=== PATIENT | female | born 1940 | race Hispanic/Latino ===

== ENCOUNTER 2017-02-26 19:40 | Inpatient (IN) | payer MEDICARE ==
[2017-02-26 19:54] VITALS: BMI 23.1
--- NOTE | 2017-02-26 20:12 | ED PDOC ---
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 Patient reports while walking she caught her foot on a chair causing her to fall hitting her head, back and left hip. 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 Patient currently complains of a headache, mid lower back pain and left hip pain. Patient denies any other injuries, dizziness, vision changes, neck pain, fever, chills, nausea, vomiting, abdominal pain, chest pain, shortness of breath or any other complaints. PMD: Dr. Pandey Shingle Inspector: Dr. Turk Oncologist: Dr. Lind Time/Duration: Other (yesterday) Symptom Course: Unchanged Quality: Other Context: Home Past Medical History - Provider Review Nursing Documentation Reviewed: Yes - Cardiac Hx Pacemaker: No - Neurological Hx Paralysis: No - Hematological/Oncological Hx Blood Transfusions: No - Musculoskeletal/Rheumatological Hx Musculoskeletal Disorders: Yes (NEUROPATHY/POLYMYALGIA) - Psychiatric Hx Substance Use: No - Anesthesia Hx Anesthesia Reactions: No Hx Malignant Hyperthermia: No Family/Social History - Physician Review Nursing Documentation Reviewed: Yes Family/Social History: No Known Family HX Smoking Status: Never Smoked Hx Alcohol Use: Yes (COCKTAIL DAILY) Hx Substance Use: No Allergies/Home Meds Allergies/Adverse Reactions: Allergies No Known Allergies Allergy (Verified 02/26/17 19:52) Home Medications: Home Meds Medication Instructions Recorded Confirmed Hydroxychloroquine Sulfate 200 mg PO DAILY 01/30/15 02/26/17 [Plaquenil] Folic Acid 1 mg PO DAILY 02/26/17 02/26/17 Methotrexate 2.5 mg PO QWK 02/26/17 02/26/17 Naproxen [Naprosyn] 500 mg PO BID 02/26/17 02/26/17 Prednisone [Aretha] 10 mg PO DAILY 02/26/17 02/26/17 Review of Systems - Physician Review All systems were reviewed & negative as marked: Yes - Review of Systems Constitutional: absent: Fevers, Night Sweats Eyes: absent: Vision Changes Respiratory: absent: SOB Cardiovascular: absent: Chest Pain Gastrointestinal: absent: Abdominal Pain, Nausea, Vomiting Musculoskeletal: Back Pain, Other (left hip pain). absent: Neck Pain Neurological: Headache. absent: Dizziness Physical Exam Vital Signs Reviewed: Yes Vital Signs Temp Pulse Resp BP Pulse Ox 02/26/17 19:56 98.7 F 113 H 18 156/91 H 96 02/26/17 19:51 98.7 F 113 H 17 156/91 H 96 Temperature: Afebrile Blood Pressure: Hypertensive Pulse: Tachycardic Respiratory Rate: Normal Appearance: Positive for: Well-Appearing, Non-Toxic, Comfortable Pain Distress: None Mental Status: Positive for: Alert and Oriented X 3 - Systems Exam Head: Present: Other (Small bump in left posterior part of the head) Pupils: Present: PERRL Extroacular Muscles: Present: EOMI Conjunctiva: Present: Normal Mouth: Present: Moist Mucous Membranes Neck: Present: Normal Range of Motion. No: MIDLINE TENDERNESS, Paraspinal Tenderness Respiratory/Chest: Present: Clear to Auscultation, Good Air Exchange. No: Respiratory Distress, Accessory Muscle Use Cardiovascular: Present: Regular Rate and Rhythm, Normal S1, S2. No: Murmurs Abdomen: Present: Normal Bowel Sounds. No: Tenderness, Distention, Peritoneal Signs Back: Present: Midline Tenderness (mid to lower back tenderness), Paraspinal Tenderness (mid to lower back tenderness). No: Other (step off) Upper Extremity: Present: Normal Inspection, Normal ROM, NORMAL PULSES, Neurovascularly Intact. No: Cyanosis, Edema, Tenderness, Swelling, Erythema, Temperature Abnormalties, Deformity Lower Extremity: Present: NORMAL PULSES, Tenderness (Left hip tenderness), Neurovascularly Intact. No: Edema, CALF TENDERNESS, Normal ROM (Decrease ROM in left hip ), Swelling, Erythema, Deformity, Temperature Abnormalties, Other ( Knee tenderness) Neurological: Present: GCS=15, CN II-XII Intact, Speech Normal Skin: Present: Warm, Dry, Normal Color. No: Rashes Psychiatric: Present: Alert, Oriented x 3, Normal Insight, Normal Concentration Medical Decision Making ED Course and Treatment: 02/26/17 20:05 Impression: A 77 year old female with a headache, mid to lower back pain and left hip pain after fall yesterday. Differential Diagnosis included but are not limited to: Mechanical fall rule out fracture Plan: -- Head CT -- Thoracic spine CT -- Lumbar spine CT -- Abdomen and pelvis CT -- Chest xray -- Labs -- Toradol -- Reassess and disposition Progress Notes: 02/26/17 21:08 Chest xray read and interpreted by me, which show no active disease. Report Date: 02/26/17 21:42 EXAM: CT Abdomen and Pelvis Without Intravenous Contrast Dictated and Authenticated by: Gladys Dang MD IMPRESSION: Cardiomegaly and atherosclerotic disease; ascending aortic aneurysm 5.3 cm maximal diameter, similar finding seen on the prior study; irregular fusiform dilatation of the abdominal aorta with extensive atherosclerotic disease, similar finding seen on the prior study; cholecystectomy; right nephrectomy; nonobstructing left renal stones, no ureteral stones or hydronephrosis; cystic lesion in the pancreatic head, unchanged since the prior study; mild ileus, no obstruction Report Date: 02/26/17 21:50 EXAM: CT Thoracic Spine Without Intravenous Contrast Dictated and Authenticated by: Gladys Dang MD IMPRESSION: Osteopenia degenerative change, no fracture seen; mediastinal and hilar adenopathy suspicious for malignancy, CT chest with contrast suggested for more optimal evaluation; cardiomegaly and atherosclerotic disease, 5.2 cm ascending aortic aneurysm Report Date: 02/26/17 21:53 EXAM: CT Head Without Intravenous Contrast Dictated and Authenticated by: Gladys Dang MD IMPRESSION: Atrophy and small vessel disease, age-indeterminate basal ganglia lacunar infarct; no bleed Report Date: 02/26/17 22:03 EXAM: CT Lumbar Spine Without Intravenous Contrast Dictated and Authenticated by: Gladys Dang MD IMPRESSION: Osteopenia and degenerative change, similar findings seen on the prior study, no acute fracture; extensive atherosclerotic disease in the abdominal aorta; right nephrectomy 02/26/17 22:29 Hyponatremia treated with NS IVF. WBC 12. Patient denies fever, chills or bodyaches. She denies cough or urinary symptoms. I tried to get patient to stand up and walk and she is unable to hold steady or ambulate. Patient's pain was not controlled with Toradol so I gave her Morphine 4mg IV. CT exams reviewed and discussed with patient. Discussed case with Dr. Parham and will place her on observation. - Lab Interpretations Lab Results: 02/26/17 20:15 02/26/17 20:15 Lab Results 02/26/17 20:15: Sodium 121 L, Potassium 4.3, Chloride 87 L, Carbon Dioxide 21, Anion Gap 17, BUN 10, Creatinine 0.5, Est GFR ( Amer) > 60, Est GFR (Non- Af Amer) > 60, Random Glucose 137 H, Calcium 9.6, Total Bilirubin 1.3, AST 33, ALT 29, Alkaline Phosphatase 83, Total Protein 6.9, Albumin 4.1, Globulin 2.8, Albumin/Globulin Ratio 1.5 02/26/17 20:15: PT 11.7, INR 1.08, APTT 34.7 H 02/26/17 20:15: WBC 12.0 H D, RBC 3.30 L, Hgb 11.1 L, Hct 30.9 L, MCV 93.6, MCH 33.6, MCHC 35.9, RDW 13.1, Plt Count 197, MPV 9.5, Gran % 91.0 H, Lymph % (Auto ) 3.0 L, Mcmullen % (Auto) 5.8, Eos % (Auto) 0.1 L, Baso % (Auto) 0.1, Gran # 10.92 H, Lymph # 0.4 L, Mcmullen # 0.7 H, Eos # 0.0, Baso # 0.01, Neutrophils % (Manual) 94 H, Lymphocytes % (Manual) 2 L, Monocytes % (Manual) 4 I have reviewed the lab results: Yes - RAD Interpretation Radiology Orders: 02/26/17 19:57 HEAD W/O CONTRAST [CT] Stat LUMBAR SPINE W/O CONTRAST [CT] Stat THORACIC SPINE W/O CONT [CT] Stat 02/26/17 19:59 ABD & PELVIS W/O PO OR IV CONT [CT] Stat CXR [CHEST ONE VIEW] [RAD] Stat - Medication Orders Current Medication Orders: Sodium Chloride (Sodium Chloride 0.9%) 500 mls @ 100 mls/hr IV .Q5H WE[facility] Last Admin: 02/26/17 21:58 Dose: 100 mls/hr Morphine Sulfate (Morphine) 4 mg IVP Q4H PRN PRN Reason: Pain, moderate (4-7) Discontinued Medications Ketorolac Tromethamine (Toradol) 30 mg IVP STAT STA Stop: 02/26/17 20:01 Last Admin: 02/26/17 20:22 Dose: 30 mg Morphine Sulfate (Morphine) 4 mg IVP STAT STA Stop: 02/26/17 21:25 Last Admin: 02/26/17 21:58 Dose: 4 mg - Scribe Statement The provider has reviewed the documentation as recorded by the Guilherme Myers Provider Scribe Attestation: All medical record entries made by the Guilherme were at my direction and personally dictated by me. I have reviewed the chart and agree that the record accurately reflects my personal performance of the history, physical exam, medical decision making, and the department course for this patient. I have also personally directed, reviewed, and agree with the discharge instructions and disposition. Disposition/Present on Arrival - Present on Arrival Any Indicators Present on Arrival: No History of DVT/PE: No History of Uncontrolled Diabetes: No Urinary Catheter: No History of Decub. Ulcer: No History Surgical Site Infection Following: None - Disposition Have Diagnosis and Disposition been Completed?: Yes Diagnosis: Intractable pain, Hip pain, Leg pain, Fall, Hyponatremia Disposition: HOSPITALIZED Disposition Time: 22:32 Patient Plan: Observation Condition: FAIR
[2017-02-26 20:38] LABS: ALB/GLOB RATIO 1.5 (1.1-1.8); ALKALINE PHOSPHATASE 83 U/L (38-126); ALT/SGPT 29 U/L (7-56); AST/SGOT 33 U/L (14-36); BASO # 0.01 K/mm3 (0.0-2.0); BASO % 0.1 % (0.0-3.0); BILIRUBIN,TOTAL 1.3 mg/dL (0.2-1.3); BLOOD UREA NITROGEN 10 mg/dL (7-21); CALCIUM 9.6 mg/dL (8.4-10.5); CARBON DIOXIDE 21 mmol/L (21-33); CHLORIDE 87 mmol/L (98-107); EOS % 0.1 % (1.5-5.0); GFR AFRICAN-AMERICAN > 60; GLUCOSE,RANDOM 137 mg/dL (70-110); GRAN # 10.92 (1.4-6.5); HEMATOCRIT 30.9 % (36.0-48.0); LYMPH # 0.4 (1.2-3.4); MEAN CELL VOLUME 93.6 fl (80.0-105.0); MEAN CORPUSCULAR HEMOGLOBIN 33.6 pg (25.0-35.0); MEAN CORPUSCULAR HGB CONC 35.9 g/dl (31.0-37.0); MEAN PLATELET VOLUME 9.5 fl (7.0-11.0); MONO # 0.7 (0.1-0.6); MONO % 5.8 % (1.0-6.0); PLATELET COUNT 197 10^3/uL (120.0-450.0); POTASSIUM 4.3 mmol/L (3.6-5.0); RED CELL DISTRIBUTION WIDTH 13.1 % (11.5-14.5); SODIUM 121 mmol/L (132-148); TOTAL PROTEIN 6.9 g/dL (5.8-8.3)
[2017-02-26 20:47] LABS: INR 1.08 (0.93-1.08); PARTIAL THROMBOPLASTIN TIME 34.7 Seconds (23.7-30.8)
[2017-02-26] MEDS ORDERED: Morphine 4 mg/ml ISec IVP STA (21:24)
[2017-02-26 21:25] LABS: NEUTROPHIL 94 % (50.0-70.0)
--- NOTE | 2017-02-26 21:42 | CT ---
EXAM: CT Abdomen and Pelvis Without Intravenous Contrast EXAM DATE/TIME: 02/26/2017 7:59 PM CLINICAL HISTORY: 77 years old, female; Pain; Abdominal pain; Prior surgery; Surgery type: Cholecystectomy - r heminephrectomy; Additional info: Left hip pain R/O FX TECHNIQUE: Axial computed tomography images of the abdomen and pelvis without intravenous contrast. All CT scans at this facility use one or more dose reduction techniques, viz.: automated exposure control; ma/kV adjustment per patient size (including targeted exams where dose is matched to indication; i.e. head); or iterative reconstruction technique. Coronal and sagittal reformatted images were created and reviewed. COMPARISON: CT - CHEST,ABDOMEN,PELVIS W/O CONT 12/04/2016 8:50:49 AM FINDINGS: Lower thorax: The heart is enlarged. There is a small pericardial effusion. Descending aorta is dilated, 5.3 cm in diameter. There are coronary artery calcifications and/or stents. There are vascular calcifications. There is scarring at the lung bases. There are multiple small clips at both lung bases. There is pleural thickening greatest at the left base. ABDOMEN: Liver: unremarkable Gallbladder and bile ducts: Gallbladder is surgically absent. Common duct is unremarkable. Pancreas: Body and tail of the pancreas are. There is a 1.8 cm cyst at the junction of the pancreatic body and head unchanged. Pancreatic head is unremarkable. Spleen: unremarkable Adrenals: Left adrenal is unremarkable. Right adrenal is difficult to identify. Kidneys and ureters: There are nonobstructing left renal stones.There is no pelvocaliectasis or ureterectasis. Right kidney is absent. There are multiple clips in the right renal fossa. Stomach and bowel: Stomach is almost empty. Rotation is normal. There is a duodenal diverticulum. Small bowel is mildly distended with fluid and air. There is no obstruction. Ileocecal region is unremarkable.Colon is incompletely distended which limits evaluation. Appendix: See stomach and bowel PELVIS: Bladder: Urinary bladder is unremarkable. Reproductive: Uterus is atrophic. There are no adnexal masses. ABDOMEN and PELVIS: Intraperitoneal space: There is no free air or free fluid. Bones/joints: Bony structures are osteopenic. There are degenerative changes. Degenerative changes in the spine are greatest at L3-L4 and L5-S1. There is anterolisthesis L4 on L5. There is degenerative facet disease greatest at L45 and L5-S1. There are no pelvic fractures. There are no hip fractures. Soft tissues: unremarkable Vasculature: The distal descending aorta is ectatic. Abdominal aortic is ectatic. There is extensive atherosclerotic calcification in the wall. Intraluminal calcifications suggest calcified mural thrombus and/or plaque. Proximal abdominal aorta measures approximately 4.8 cm in diameter. Midportion measures approximately 4.2 cm in diameter. There is distal tapering. There is calcification of celiac, superior mesenteric and both renal arteries proximally. Calcification in the iliacs. There are extensive calcifications in the aortic wall. There are curvilinear calcifications displaced from the wall unchanged since the prior study. Lymph nodes: There is no pathologic adenopathy. IMPRESSION: Cardiomegaly and atherosclerotic disease; ascending aortic aneurysm 5.3 cm maximal diameter, similar finding seen on the prior study; irregular fusiform dilatation of the abdominal aorta with extensive atherosclerotic disease, similar finding seen on the prior study; cholecystectomy; right nephrectomy; nonobstructing left renal stones, no ureteral stones or hydronephrosis; cystic lesion in the pancreatic head, unchanged since the prior study; mild ileus, no obstruction
--- NOTE | 2017-02-26 21:51 | CT ---
EXAM: CT Thoracic Spine Without Intravenous Contrast EXAM DATE/TIME: 02/26/2017 7:57 PM CLINICAL HISTORY: 77 years old, female; Injury or trauma; Fall; Initial encounter; Blunt trauma (contusions or hematomas); Additional info: Fall R/O FX; metastatic renal cell carcinoma TECHNIQUE: Axial computed tomography images of the thoracic spine without intravenous contrast. All CT scans at this facility use one or more dose reduction techniques, viz.: automated exposure control; ma/kV adjustment per patient size (including targeted exams where dose is matched to indication; i.e. head); or iterative reconstruction technique. Coronal and sagittal reformatted images were created and reviewed. COMPARISON: There are no prior studies for comparison. FINDINGS: Vertebrae: Thoracic vertebral bodies are normal in height and alignment. There are no thoracic fractures. There are degenerative changes in the lower cervical spine with disc space narrowing and osteophyte formation. There is mild disc space narrowing in the mid thoracic spine. There are small degenerative osteophytes. Facet joints align anatomically. Spinous processes align in the expected fashion. Discs/spinal canal/neural foramina: See above Soft tissues: Paraspinous muscles are unremarkable. Vasculature: The heart is enlarged. There is a small pericardial effusion. There is atherosclerotic disease. The ascending aorta is dilated 5.2 cm in diameter. There is tapering at the arch. Distal thoracic aorta is ectatic. Lymph nodes: There is mediastinal and right hilar adenopathy. Pleural space: There is scarring at the lung bases. There is pleural thickening greatest at the right apex. There are clips at the lung bases. Mediastinum: Posterior mediastinum is unremarkable. Kidneys and ureters: Right kidney is absent. IMPRESSION: Osteopenia degenerative change, no fracture seen; mediastinal and hilar adenopathy suspicious for malignancy, CT chest with contrast suggested for more optimal evaluation; cardiomegaly and atherosclerotic disease, 5.2 cm ascending aortic aneurysm Additional findings as described above.
--- NOTE | 2017-02-26 21:53 | CT ---
EXAM: CT Head Without Intravenous Contrast EXAM DATE/TIME: 02/26/2017 7:57 PM CLINICAL HISTORY: 77 years old, female; Injury or trauma; Fall; Initial encounter; Concussion / head injury; Additional info: Head injury R/O ich TECHNIQUE: Axial computed tomography images of the head/brain without intravenous contrast. All CT scans at this facility use one or more dose reduction techniques, viz.: automated exposure control; ma/kV adjustment per patient size (including targeted exams where dose is matched to indication; i.e. head); or iterative reconstruction technique. COMPARISON: There are no prior studies for comparison. FINDINGS: Artifacts: Motion artifact degrades image quality. Brain: There is dilatation of sulci gyri and ventricles. There is no midline shift. There is decreased attenuation in periventricular white matter. There are age-indeterminate basal ganglia lacunar infarcts. There are basal ganglia calcifications bilaterally. There are no focal masses. There are no focal hemorrhages. Hager-white differentiation is visualized. Ventricles: See above Bones: Cranial vault is intact. Soft tissues: unremarkable Sinuses: There is no acute sinusitis. Ears and mastoids: Middle ears and mastoids are unremarkable. Orbits: Orbital contents are unremarkable. IMPRESSION: Atrophy and small vessel disease, age-indeterminate basal ganglia lacunar infarct; no bleed
[2017-02-26] MEDS: Sodium Chloride 0.9% 500 ML IV SCH (21:58)
--- NOTE | 2017-02-26 22:03 | CT ---
EXAM: CT Lumbar Spine Without Intravenous Contrast EXAM DATE/TIME: 02/26/2017 7:57 PM CLINICAL HISTORY: 77 years old, female; Injury or trauma; Fall; Initial encounter; Blunt trauma (contusions or hematomas); Additional info: Metastatic renal cell carcinoma TECHNIQUE: Axial computed tomography images of the lumbar spine without intravenous contrast. All CT scans at this facility use one or more dose reduction techniques, viz.: automated exposure control; ma/kV adjustment per patient size (including targeted exams where dose is matched to indication; i.e. head); or iterative reconstruction technique. Coronal and sagittal reformatted images were created and reviewed. COMPARISON: CT - CHEST,ABDOMEN,PELVIS W/O CONT 12/04/2016 8:50:49 AM FINDINGS: Vertebrae: T12 and 5 lumbar vertebral bodies are normal in height. There are no fractures. Bony structures are osteopenic There is multilevel degenerative change. There are Schmorl's nodes T11-T12, T12-L1 and L1/L2. Facet joints align anatomically. There is degenerative facet disease greatest L34, L4-L5 and L5-S1.Spinous processes align in the expected fashion. There is posterior disc space narrowing T11-T12 T12-L1 and L1-L2. There is minimal retrolisthesis L1 on L2. There is retrolisthesis L2 on L3. There is moderate disc space narrowing L2-L3. There is marked disc space narrowing L3-L4. There is subchondral sclerosis and osteophyte formation There is anterolisthesis of L4 and L5 with posterior disc space narrowing and disc bulging. There is marked narrowing L5-S1 disc space. There is subchondral sclerosis and osteophyte formation. Discs/spinal canal/neural foramina: See above. Soft tissues: Psoas and paraspinous muscles are symmetric. Vasculature: There extensive atherosclerotic calcifications in the abdominal aorta. There is asymmetric fusiform dilatation. Kidneys and ureters: Right kidney is absent. There are nonobstructing left renal stones. IMPRESSION: Osteopenia and degenerative change, similar findings seen on the prior study, no acute fracture; extensive atherosclerotic disease in the abdominal aorta; right nephrectomy Additional findings as described above.
[2017-02-26] MEDS ORDERED: Morphine 4 mg/ml ISec IVP PRN (22:15)
[2017-02-26 22:57] LABS: URINE BILIRUBIN SMALL (NEGATIVE); URINE BLOOD MODERATE (NEGATIVE); URINE GLUCOSE (UA) NEGATIVE (NEGATIVE); URINE KETONE TRACE mg/dL (NEGATIVE); URINE LEUKOCYTE ESTERASE NEGATIVE Leu/uL (NEGATIVE); URINE PROTEIN >=300 mg/dL (<30 mg/dL)
[2017-02-26 22:58] LABS: URINE APPEARANCE CLEAR (CLEAR); URINE COLOR DARK YELLOW (YELLOW)
[2017-02-26 23:10] LABS: URINE RBC 15 - 20 /hpf (0-2)
[2017-02-26 23:11] LABS: URINE BACTERIA FEW (NEG); URINE EPITHELIAL CELLS 0 - 2 /hpf (0-5)
[2017-02-26] MEDS ORDERED: Sodium Chloride 0.9% 1,000 ML IV SCH (23:30)
[2017-02-27 08:24] LABS: HEMATOCRIT 29.5 % (36.0-48.0); MEAN CELL VOLUME 94.9 fl (80.0-105.0); MEAN CORPUSCULAR HEMOGLOBIN 33.1 pg (25.0-35.0); MEAN CORPUSCULAR HGB CONC 34.9 g/dl (31.0-37.0); MEAN PLATELET VOLUME 8.7 fl (7.0-11.0); RED CELL DISTRIBUTION WIDTH 13.2 % (11.5-14.5); WHITE BLOOD COUNT 7.9 10^3/ul (4.5-11.0)
[2017-02-27 08:39] LABS: ALB/GLOB RATIO 1.4 (1.1-1.8); ALKALINE PHOSPHATASE 67 U/L (38-126); ALT/SGPT 31 U/L (7-56); AST/SGOT 23 U/L (14-36); BILIRUBIN,TOTAL 1.4 mg/dL (0.2-1.3); BLOOD UREA NITROGEN 15 mg/dL (7-21); CALCIUM 9.2 mg/dL (8.4-10.5); CARBON DIOXIDE 24 mmol/L (21-33); CHLORIDE 92 mmol/L (98-107); GFR AFRICAN-AMERICAN > 60; GLUCOSE,RANDOM 94 mg/dL (70-110); PHOSPHOROUS 4.4 mg/dL (2.5-4.5); POTASSIUM 4.4 mmol/L (3.6-5.0); SODIUM 125 mmol/L (132-148); TOTAL PROTEIN 6.4 g/dL (5.8-8.3)
--- NOTE | 2017-02-27 08:48 | RAD ---
PROCEDURE: CHEST RADIOGRAPH, 1 VIEW HISTORY: fall r/o fx COMPARISON: None available. FINDINGS: LUNGS: Clear. PLEURA: No pneumothorax or pleural fluid seen. CARDIOVASCULAR: The cardiac silhouette is mildly enlarged. The aortic arch is dilated. OSSEOUS STRUCTURES: No significant abnormalities. VISUALIZED UPPER ABDOMEN: Normal. OTHER FINDINGS: None. IMPRESSION: No evidence of pleural effusion or pneumothorax.
[2017-02-27 08:56] LABS: MAGNESIUM 1.2 mg/dL (1.7-2.2)
[2017-02-27] MEDS ORDERED: Metoprolol Succinate 50 mg XL Tab PO SCH (14:45)
[2017-02-27] MEDS ORDERED: Morphine 4 mg/ml ISec IVP PRN (14:46)
[2017-02-27] MEDS ORDERED: Morphine 2 mg/ml ISec IVP PRN (14:52)
[2017-02-27] MEDS ORDERED: Magnesium Sulfate 2 GM in Sodium Chloride 0.9% 100 ML IV ONE (15:37)
--- NOTE | 2017-02-27 18:07 | CON ---
DATE: 02/27/2017 Hospital visit on the medical floor For Dr. Lind. CHIEF COMPLAINT: Falls and hyponatremia. HISTORY OF PRESENT ILLNESS: The patient is a 77-year-old female admitted via the emergency room for electrolyte abnormality putting the sodium of 125 with the patient having had a fall recently where she struck the back of her head with gait disturbance approximately 3 days prior. She ended up here but she did not seek medical attention at that time. She reports with the patient then coming to emergency room at the insistence of her friends and family yesterday for admission after her electrolyte imbalance was noted. She claimed the pain to the left groin which is better today and she is sitting up in the chair in no acute distress. She also had initial complain of the headache. 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 Lind with interferon at that time. She also suffers from polymyalgia rheumatica; hemachromatosis, remote history; aortic aneurysm with arthritic changes to her hands, sees Dr. 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 ALLERGIES: NO KNOWN ALLERGIES. MEDICATIONS: At the time of her last visit in 11/2016 included methotrexate, folic acid, Biotin, magnesium, Toprol XL. Plaquenil have been discontinued, however, in the interim, she might have had a visit with Dr. Flores with restarting of the Plaquenil and stopping methotrexate, this is to be determine. FAMILY HISTORY AND SOCIAL HISTORY: Noncontributory. The patient following with Dr. Root her primary doctor. Denies smoking. Denies alcohol use. REVIEW OF SYSTEMS: A 12-point review of systems essentially negative to questioning except as findings in the history of present illness. PHYSICAL EXAMINATION VITAL SIGNS: Temperature 98, pulse 104 with repeat of 63, respirations 20, blood pressure 139/62, and pulse oximetry 98%. HEENT: She does have 2 sutures to the top of her head, reporting that Dr. Carpenter, dietitian teaching associate taken a biopsy of the lesion approximately 10 days prior. She also has ecchymotic changes to the posterior occiput. Otherwise unremarkable. NECK: Supple. HEART: Tachy rate. Regular rate, was 1/6 systolic ejection murmur. LUNGS: Clear. ABDOMEN: Soft and nontender. EXTREMITIES: No edema. SKIN: Warm, dry, and clear except her posterior occiput with no tenderness to palpation of the left groin where she reported pain initially. LABORATORY DATA: The patient's labs were done. White blood cell count of 7.9 and 12.0 on admission, hemoglobin of 10.3, hematocrit 29.5, platelet count of 167,000. Chem metabolic panel showing a sodium of 121 on admission with a repeat today of 125 with chloride of 87 on admission, 92 on repeat with a magnesium of 1.2, total bilirubin of 1.4. INR of 1.08. Urine showing moderate amount of blood as the patient noted to have suffered from renal cell CA with metastases to the lung and a status post nephrectomy on the right. The patient had a CT scan of the abdomen and pelvis done yesterday, it was read as cardiomegaly with ASCVD, ascending aortic aneurysm 5.2 cm maximum diameter, a regular fusiform dilatation of abdominal aorta with extensive atherosclerotic disease, cholecystectomy, right nephrectomy, non-obstructing renal stones, cystic lesion of the pancreas unchanged since prior testing, mild ileus, no obstruction. She also had a thoracic spine CT which was read as osteopenic degenerative change. No fracture, mediastinal hilar adenopathy suspicious for malignancy. CT scan of the chest with contrast suggested cardiomegaly, ASCVD with 5.2 cm ascending abdominal aortic aneurysm. A CT scan of the lumbar spine was done it was read as osteopenic degenerative change, no acute fracture, right nephrectomy. CAT scan of the head was done, it was read as atrophy small vessels and internal basal ganglia lacunar infarct no bleed. She had been noted that in 11/2016, she did have a CT scan of her chest without contrast which read no significant interval change with lungs clear, no nodule, no mass or consolidation. The patient also had a chest x-ray done was essentially negative. The CT of the abdomen also showed, the pelvic bone show no pelvic fractures. No hip fractures as per Dr. Gladys Dang. ASSESSMENT: Hyponatremia, electrolyte imbalance, status post fall, gait disturbance, degenerative arthritis, hypertension, and history of renal cell carcinoma with right nephrectomy with metastases to the lungs. PLAN: After conversation with Dr. Lind is to continue present medical regimen. We will determine whether the patient is presently taking her Plaquenil or her methotrexate as at that point in 11/2016, the methotrexate was began and Plaquenil was discontinued with the change may have been done in the recent past. Also as per CT scan of the chest with electrolyte correction as per Dr. Kessler with a consult with Dr. 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 Monitor clinically. Prognosis for this patient is guarded. Luis Zafar MD
--- NOTE | 2017-02-27 21:25 | CT ---
EXAM: CT Chest Without Intravenous Contrast CLINICAL HISTORY: 77 years old, female; Abnormal findings; Lung mass or nodule; Not specified; Additional info: Hilar adenopathy TECHNIQUE: Axial computed tomography images of the chest without intravenous contrast. All CT scans at this facility use one or more dose reduction techniques, viz.: automated exposure control; ma/kV adjustment per patient size (including targeted exams where dose is matched to indication; i.e. head); or iterative reconstruction technique. MIP reconstructed images were created and reviewed. Coronal and sagittal reformatted images were created and reviewed. COMPARISON: CT - CHEST,ABDOMEN,PELVIS W/O CONT 12/04/2016 8:50:49 AM FINDINGS: Limitations: Lack of intravenous contrast. Motion artifact - mild. Lungs: Few linear calcifications within lung bases. Few pulmonary nodules, up to 0.3 cm. LEFT upper lobe calcified granuloma. Pleural space: No pneumothorax. No significant effusion. Heart: [id number] cardiomegaly. No significant pericardial effusion. Coronary artery calcifications. Bones/joints: No acute fracture. Soft tissues: Unremarkable. Vasculature: Aneurysmal dilatation of ascending aorta, up to 5.0 cm. Aneurysmal dilatation of descending or aorta, up to 4.4 cm. Extensive atherosclerotic disease. Lymph nodes: Increase in size of confluent mediastinal/RIGHT hilar adenopathy and/or mass, roughly 5.8 x 4.2 x 8.0 cm. Gallbladder and bile ducts: Cholecystectomy. Kidneys and ureters: Mild caliectasis of LEFT kidney. RIGHT nephrectomy. IMPRESSION: 1. Increase in size of mediastinal/RIGHT hilar adenopathy and/or mass compatible with primary malignancy or metastatic disease. 2. Pulmonary nodules, indeterminate. Metastatic disease not excluded. 3. Incidental/non-acute findings are described above.
--- NOTE | 2017-02-28 06:55 | HP ---
CHIEF COMPLAINT AND HISTORY OF PRESENT ILLNESS: This is a 77-year-old female who is coming into the hospital having difficulty in ambulating. The patient had a fall, and since the fall, she has not been able to walk well. She does have a history of rheumatoid arthritis, hypertension, coronary artery disease with stent. She has a history of a renal cell cancer and had right nephrectomy done. She has mets to the lung. She presents to the emergency room for evaluation of the fall. The patient could not be discharged home because it was felt that she is unsafe for discharge. She is admitted for further evaluation. She was also found to be hyponatremic which may have attributed to the fall. She does not have any fevers or chills. No nausea. No vomiting. No dysuria or frequency. She does complain of pain in the lower back and the left hip. She denies any syncopal episode. No dizziness. REVIEW OF SYSTEMS: All other review of symptoms are within normal limits except as mentioned. ALLERGIES: NO KNOWN DRUG ALLERGIES. HOME MEDICATIONS: Plaquenil, folic acid, methotrexate, Naprosyn, prednisone. SOCIAL HISTORY: She did smoke a pack per day for 40 years, but quit in 12/2014. She drinks alcohol occasionally. PAST MEDICAL HISTORY: Right cholecystectomy, polymyalgia rheumatica, hemochromatosis. PAST SURGICAL HISTORY: Right nephrectomy. FAMILY HISTORY: Noncontributory. PHYSICAL EXAMINATION VITAL SIGNS: Temperature is 98.1, pulse of 104, blood pressure 166/92, respirations 18, O2 saturation is 97%, height is 5 feet 4 inches, weight is 135 pounds, BMI is 23.2. GENERAL: The patient lying in bed, uncomfortable, and in no acute distress. HEENT: Atraumatic and normocephalic. Anicteric sclerae. Moist mucosa. Goldonna conjunctivae. No oral lesions. NECK: No JVD, anterior and posterior adenopathy, thyromegaly, or bruits. CARDIOVASCULAR: S1 and S2 regular. No murmur, rubs, or gallop. LUNGS: Clear to auscultation bilaterally. No wheezes, rales, or rhonchi. ABDOMEN: Bowel sounds are positive. Soft, nontender and nondistended. No hepatosplenomegaly. No rebound and no guarding EXTREMITIES: No cyanosis, clubbing, or edema. NEUROLOGIC: No facial asymmetry. Tongue is midline. No uvula deviation. Power is 5/5 upper extremity and lower extremity. Sensation intact in upper extremity and lower extremity. PSYCHIATRIC: She is awake, alert and oriented x3. No anxiety or depression. She has normal affect. GENITOURINARY: No CVA tenderness. VASCULAR: 2+ pulses in the carotid pulses and pedal pulses. SKIN: No erythema or nodules SPINE: Shows normal curvature. EXTREMITIES: No Cyanosis and clubbing, no edema. LABORATORY DATA: Labs have been reviewed. White count of 12.0, hemoglobin 11.1. She has a chemistry that showed a sodium of 121, repeat 125; magnesium is 1.2. Urine shows protein greater than 300, blood is moderate and bilirubin small. CT of the head done, shows atrophy and small vessel disease, age undetermined. Thoracic spine CT done, shows osteopenia, degenerative changes, no fractures. There is mediastinal hilar adenopathy suspicious for malignancy. Lumbar spine CT done, shows osteopenia and degenerative changes, similar findings seen on the prior study; extensive atherosclerotic disease. There is a right nephrectomy. CT of the abdomen and pelvis done, shows cardiomegaly and atherosclerotic disease. There is an ascending aortic aneurysm of 5.3 cm. There is a nonobstructing left renal stone. Chest x-ray done shows no evidence of pneumothorax or infiltrates. CT of the chest done, shows increasing size of the mediastinal right hilar adenopathy and/or mass compatible with pulmonary malignancy and metastatic disease, pulmonary nodules have been better, indeterminate. ASSESSMENT: 1. Fall. 2. Hyponatremia. 3. Rheumatoid arthritis. 4. Hypertension. 5. Coronary artery disease with stent. 6. Mediastinal adenopathy. 7. Pulmonary nodules. 8. Ascending aortic aneurysm, 5.3 cm, similar to prior study. 9. Right cholecystectomy. 10. Right nephrectomy. 11. Nephrolithiasis in the left kidney. 12. Degenerative joint disease of lumbar spine. 13. History of metastatic renal cell cancer. 14. Polymyalgia rheumatica. 15. Hemochromatosis. PLAN: The patient is going to be admitted to the hospital because of a fall. She is going to be seen by Dr. Lind for the cancer. The patient is going to need physical therapy. She is on IV fluids with normal saline, she is going to continue. Her sodium is improving. The patient is on tramadol as needed. She is going to be on morphine for pain. She is on a heart-healthy diet. Blood work has been ordered for tomorrow. We will continue to follow closely. She is also going to need an evaluation by Dr. Turk for her coronary history. Collins Mcpherson MD
[2017-02-28 07:15] LABS: BASO # 0.01 K/mm3 (0.0-2.0); BASO % 0.1 % (0.0-3.0); EOS % 0.4 % (1.5-5.0); GRAN # 6.96 (1.4-6.5); GRAN % 81.5 % (50.0-68.0); HEMATOCRIT 29.3 % (36.0-48.0); LYMPH # 0.7 (1.2-3.4); LYMPH % 7.7 % (22.0-35.0); MEAN CELL VOLUME 94.8 fl (80.0-105.0); MEAN CORPUSCULAR HEMOGLOBIN 33.3 pg (25.0-35.0); MEAN CORPUSCULAR HGB CONC 35.2 g/dl (31.0-37.0); MEAN PLATELET VOLUME 9.6 fl (7.0-11.0); MONO # 0.9 (0.1-0.6); MONO % 10.3 % (1.0-6.0); RED CELL DISTRIBUTION WIDTH 13.2 % (11.5-14.5); WHITE BLOOD COUNT 8.5 10^3/ul (4.5-11.0)
[2017-02-28 07:33] LABS: ALKALINE PHOSPHATASE 66 U/L (38-126); ALT/SGPT 29 U/L (7-56); AST/SGOT 26 U/L (14-36); BLOOD UREA NITROGEN 9 mg/dL (7-21); CALCIUM 8.7 mg/dL (8.4-10.5); CARBON DIOXIDE 23 mmol/L (21-33); CHLORIDE 89 mmol/L (95-110); GFR AFRICAN-AMERICAN > 60; GLUCOSE,RANDOM 105 mg/dL (70-110); POTASSIUM 3.8 mmol/L (3.6-5.0); SODIUM 123 mmol/L (132-148)
[2017-02-28 07:48] LABS: ALB/GLOB RATIO 1.2 (1.1-1.8)
[2017-02-28 08:53] LABS: IRON 36 ug/dL (45-180)
[2017-02-28] MEDS: Metoprolol Succinate 25 mg XL Tab PO SCH (08:58)
[2017-02-28] MEDS: Metoprolol Succinate 50 mg XL Tab PO SCH (09:00)
[2017-02-28] MEDS: Magnesium Oxide 400 mg Tab UD PO SCH ×2 (09:10→19:07)
[2017-02-28] MEDS: Sodium Chloride 0.9% 500 ML IV SCH ×2 (09:22→14:44)
--- NOTE | 2017-02-28 09:25 | CON ---
DATE: 02/28/2017 INDICATIONS: Coronary artery disease, stents, fall, hyponatremia. HISTORY OF PRESENT ILLNESS: This is a 77-year-old woman known to me who has coronary artery disease with remote coronary stents, admitted after a fall several days ago. This was a mechanical fall. She fell backward after getting up from a chair, her leg being entangled in the chair. She states that she hit her head, landed on the floor and thereafter has been unable to walk without pain in her back and hips. She came in on the for evaluation and was admitted to . This morning, she complaints of sore throat. Her hips and back are better. She has been found to be hyponatremic and has evidence of metastatic cancer in the chest as well as other problems. There is no chest pain, shortness of breath, orthopnea, PND, syncope, dizziness, vertigo, palpitations, edema, fever, chills, sputum production, hemoptysis, abdominal pain, nausea, vomiting, diarrhea, constipation, or melena. PAST MEDICAL HISTORY: Notable for coronary artery disease, rheumatoid arthritis, hypertension, renal cell carcinoma with a right nephrectomy and metastatic disease in the chest, cholecystectomy, PMR. CVD, RBBB, PAD and claudication. She has a thoracic aortic aneurysm about 4.5 cm. when last imaged. She is a former smoker. There is no history of rheumatic fever, congestive heart failure, myocardial infarction, diabetes, stroke, TIA, or gout. MEDICATIONS: At the time of admission include folic acid, methotrexate, Naprosyn, Plaquenil, and prednisone. ALLERGIES: NO KNOWN MEDICATION ALLERGIES. SOCIAL HISTORY: She lives at home. She does not smoke now. She does not drink significantly. REVIEW OF SYSTEMS: Ten point review of systems is otherwise unremarkable. FAMILY HISTORY: Noncontributory. PHYSICAL EXAMINATION: GENERAL: She is a well-developed woman, in no acute distress, lying in bed on 5R. VITAL SIGNS: Notable for a pulse of 96. Afebrile. Blood pressure 164/95, respirations 18 to 20, and O2 saturation 96% to 97% on room air. HEENT: Reveals no neck vein distention, thyromegaly, or carotid bruit. Mucous membranes are moist. Conjunctivae are pink. NECK: Supple. CHEST: Lung [place] clear bilaterally. HEART: Examination of heart reveals normal first and second heart sounds. ABDOMEN: Soft. Bowel sounds are present. No mass, organomegaly, tenderness, rebound, or guarding. EXTREMITIES: Reveals no cyanosis, clubbing, or edema. NEUROLOGIC: She is awake, alert, and oriented. PSYCHIATRIC: Normal as to mood and affect. SKIN: Warm and dry. No rash or cellulitis. LABORATORY AND IMAGING: CT scan of the head reveals atrophy and small vessel disease. There is an age indeterminate basal ganglia lacunar infarct. Lumbar spine CT reveals osteopenia and degenerative changes. Thoracic spine CT reveals osteopenia, degenerative changes, no fracture, mediastinal, and hilar adenopathy suspicious for malignancy etc. Abdomen and pelvis CT is noted, there is a 5.3 cm ascending aortic aneurysm noted. A portable chest x-ray reveals no evidence of pleural effusion or pneumothorax. I do not see an EKG. White count initially 12,000, repeat 8500; hemoglobin 10.3, hematocrit 29.3, platelets normal. PT and INR normal. PTT 34.7. Initial sodium 121, today 123 otherwise electrolytes unremarkable. BUN and creatinine unremarkable. Blood sugar is unremarkable. Magnesium is low at 1.2. LFTs unremarkable. Urinalysis is noted. Urine culture, no growth. IMPRESSION: The patient is a 77-year-old woman with coronary artery disease, remote coronary intervention, admitted after a fall with diffuse pain, especially hip pain, inability to walk, sore throat this morning, hyponatremia, an ascending acrotic aneurysm discovered on the CT, now at 5.3 cm; an history of renal cell carcinoma, status post right nephrectomy with apparent malignant disease in the chest based on CT scanning and hypomagnesemia on today's lab work. PLAN: At this point, I will review her old cardiac records. I will continue her metoprolol. She is getting saline to treat hyponatremia. I will add magnesium supplementation. She will have an Oncology evaluation by Dr. Lind. We should monitor I's and O's; check stool for occult blood. Given the apparent metastatic renal cell carcinoma, a conservative approach to her cardiac status and to the thoracic acrotic aneurysm seems appropriate. I will follow along with you. I will make additional recommendations based on her clinical course. Pro Turk MD [facility] # [id number] MTDMaureen
--- NOTE | 2017-02-28 13:16 | CARD ---
APPROVED REPORT EKG Measurement Heart [id number] <Conclusion> Sinus rhythm with premature atrial complexes Right bundle branch block T wave abnormality, consider inferior ischemia Abnormal ECG
--- NOTE | 2017-02-28 17:26 | RAD ---
PROCEDURE: Left Hip X-ray Radiographs. . HISTORY: pain COMPARISON: Comparison made with CT scan of the abdomen and pelvis dated 02/26/2017 which also image the pelvis and both hips in 3 planes. Spell FINDINGS: BONES: No evidence of acute displaced fracture nor dislocation. The osseous structures appear intact. Both femoral heads are appropriately located within their respective acetabula. JOINTS: Joint spaces are relatively preserved. SOFT TISSUES: Dense bilateral vascular calcifications OTHER FINDINGS: None. IMPRESSION: No evidence of acute displaced fracture nor dislocation.
--- NOTE | 2017-02-28 20:08 | PN ---
DATE: 02/28/2017 This is [facility] [place] [place] [facility] visit on the medical floor. For Dr. Lind. SUBJECTIVE: The patient is a 77-year-old female seen lying awake in bed with family member at the bedside, in no acute distress this visit with the patient known to have had significant hyponatremic indices on her labs, with the patient having suffered a fall, and the patient now appearing in no acute distress. The patient was given puree diet, but the patient reported she would not eat this with regular diet, now recommended with salt on the table with the patient's hyponatremic indices are to be corrected. OBJECTIVE: GENERAL: She is otherwise in no acute distress. VITAL SIGNS: Temperature 97.7, pulse 94, respirations 23, blood pressure 158/100 with a pulse oximetry of 99%. HEENT: Unremarkable. Tongue is dry. NECK: Supple. HEART: Tachy rate, regular rhythm. LUNGS: Clear. ABDOMEN: Soft, nontender. EXTREMITIES: No edema. SKIN: Warm and dry. NEUROLOGIC: Awake, alert, but confused. LABORATORY DATA: The patient's labs were done white blood cell count of 8.5, hemoglobin 10.3, hematocrit 29.3, and platelet count of 195,000. The chem metabolic panel shows a sodium of 123, chloride of 89 with an otherwise normal chem panel with the percent saturation of iron of 14%. The patient did have a CT scan of the chest done yesterday with a report showing increase in size of mediastinal right hilar adenopathy and/or mass compatible with primary malignancy or metastatic disease, pulmonary nodules indeterminate, metastatic disease not excluded, incidental findings including aneurysmal dilatation of the ascending aorta up to 5 cm. The patient also had x-rays of her hips, which showed no evidence of acute displaced fracture or dislocation. ASSESSMENT: For this patient is that of hyponatremia status post fall, electrolyte imbalance, gait disturbance, degenerative joint disease, hypertension, history of renal cell carcinoma with a right nephrectomy with metastasis to the lung. PLAN: For this patient, after conversation with Dr. Lidn, is to continue with present medical regimen with her blood pressure monitored and med suggested as per Dr. Mclean and Dr. Turk, cardiology with her normal saline to continue but at a lower rate of 70 mL an hour that the patient is 77 years old with her diet to be advanced, her labs to monitored clinically, and the patient monitored clinically. We will humidify her oxygen with consideration for Samsca as indicated for her hyponatremic indices. Prognosis for this patient is guarded. Luis Zafar MD
--- NOTE | 2017-03-01 05:32 | PN ---
DATE: SUBJECTIVE: The patient is 77 years old, seen and examined, complain of left lower quadrant pain radiating to her left hip. The patient came to emergency room on 02/26/2017 after she fell and that was having difficulty walking. PAST MEDICAL HISTORY: She has past medical history significant for generalized osteoarthritis, hypertension and coronary artery disease and she is status post right nephrectomy. PHYSICAL EXAMINATION: GENERAL: She is awake and alert, somewhat confused. VITAL SIGNS: She is afebrile, pulse 94, respirations 23, and blood pressure 137/80. HEART: S1 and S2 audible. LUNGS: Bilateral fair airflow. No rhonchi or crackles. ABDOMEN: Soft and nontender. No rebound. No guarding. She does have a some discomfort in the left groin area with some limitation of range of motion. LABORATORY DATA: WBC is 8.5, hemoglobin 10.3, hematocrit 29.3, and platelet 195. Chemistry; sodium 123, potassium 3.8, chloride 89, CO2 of 23, BUN 9, creatinine 0.5, and blood sugar of 105. Iron 36, TIBC 257, and saturation is 14%. Urine cultures are negative. CT scan of the chest shows mediastinal right hilar adenopathy with mass compatible with primary malignancy or metastatic disease, pulmonary nodule also present. She had a x-ray of the left hip and pelvis that does not have any evidence of fracture. ASSESSMENT: 1. Deconditioning, difficulty walking. 2. Status post fall. 3. Metastatic malignancy. 4. Hyponatremia. 5. Anxiety disorder. PLAN: Currently, the patient is on IV fluid. She is on beta-олег, getting Tramadol as needed. The patient was agitated this evening. She is given Ativan as needed. We will followup her electrolytes, CBC and CMP in a.m. Daniel Samayoa MD
--- NOTE | 2017-03-01 07:52 | CP.PCM.PN ---
Subjective - Date & Time of Evaluation Date of Evaluation: 03/01/17 Time of Evaluation: 07:00 - Subjective Subjective: Stable on 3R. She feels better. No CP or SOB. Hip pain and sore throat gone. V/S noted. PE: Lungs: clear Cor.: S1S2 Abd.: soft Ext.: no edema Neuro.: alert I/O= 660/300 reported ECG02/28: RSR, RBBB, STTW changes. No change Xray hips/pelvis: no fracture or dislocation Labs pending. Objective - Vital Signs/Intake and Output Vital Signs (last 24 hours): Temp Pulse Resp BP Pulse Ox 98.5 F 77 20 114/95 H 96 03/01/17 06:39 03/01/17 06:39 03/01/17 06:39 03/01/17 06:39 03/01/17 06:39 Intake and Output: 03/01/17 03/01/17 06:59 18:59 Intake Total 180 Output Total 300 Balance -120 - Medications Medications: Current Medications Acetaminophen (Tylenol 325mg Tab) 650 mg PO Q4H PRN PRN Reason: Pain, Mild (1-3) Famotidine (Pepcid) 20 mg PO DAILY [facility] Last Admin: 02/28/17 09:10 Dose: 20 mg Folic Acid (Folic Acid) 1 mg PO DAILY [facility] Last Admin: 02/28/17 09:13 Dose: 1 mg Sodium Chloride (Sodium Chloride 0.9%) 500 mls @ 70 mls/hr IV .Q7H9M [facility] Last Admin: 02/28/17 14:44 Dose: 70 mls/hr Magnesium Oxide (Mag-Ox) 400 mg PO BID [facility] Last Admin: 02/28/17 19:07 Dose: 400 mg Metoprolol Succinate (Toprol Xl) 50 mg PO BRK [facility] Last Admin: 02/28/17 09:00 Dose: 50 mg Metoprolol Succinate (Toprol Xl) 25 mg PO BRK [facility] Last Admin: 02/28/17 08:58 Dose: 25 mg Morphine Sulfate (Morphine) 2 mg IVP Q4H PRN PRN Reason: Pain, severe (8-10) Prednisone (Prednisone Tab) 10 mg PO DAILY [facility] Last Admin: 02/28/17 09:10 Dose: 10 mg Tramadol HCl (Ultram) 50 mg PO TID PRN PRN Reason: Pain, moderate (4-7) Last Admin: 02/28/17 02:06 Dose: 50 mg - Labs Labs: 02/28/17 07:07 02/28/17 07:07 PT 11.7 Seconds (9.9-11.8) 02/26/17 20:15 INR 1.08 (0.93-1.08) 02/26/17 20:15 APTT 34.7 Seconds (23.7-30.8) H 02/26/17 20:15 Assessment and Plan - Assessment and Plan (Free Text) Assessment: Mechanical Fall/Hip Pain/Inability to walk Sore throat Hyponatremia CAD/Remote PCI RA TAA HBP Renal cell cancer, s/p right nephrectomy with metastatic disease in the chest Former Smoker Plan: Await AM labs. IV saline PO mag. OOB to chair per Charisma Blankenship Conservative approach to TAA given metastatic cancer.
[2017-03-01 08:14] LABS: BASO # 0.01 K/mm3 (0.0-2.0); BASO % 0.2 % (0.0-3.0); EOS # 0.1 (0.0-0.7); EOS % 1.9 % (1.5-5.0); GRAN # 4.03 (1.4-6.5); GRAN % 71.1 % (50.0-68.0); HEMATOCRIT 28.5 % (36.0-48.0); LYMPH # 0.7 (1.2-3.4); LYMPH % 12.7 % (22.0-35.0); MEAN CORPUSCULAR HGB CONC 34.4 g/dl (31.0-37.0); MEAN PLATELET VOLUME 9.6 fl (7.0-11.0); MONO # 0.8 (0.1-0.6); MONO % 14.1 % (1.0-6.0); RED CELL DISTRIBUTION WIDTH 13.2 % (11.5-14.5); WHITE BLOOD COUNT 5.7 10^3/ul (4.5-11.0)
[2017-03-01] MEDS: Metoprolol Succinate 50 mg XL Tab PO SCH (08:23)
[2017-03-01] MEDS: Metoprolol Succinate 25 mg XL Tab PO SCH (08:23)
[2017-03-01 09:00] LABS: ALB/GLOB RATIO 1.3 (1.1-1.8); ALKALINE PHOSPHATASE 56 U/L (38-126); ALT/SGPT 26 U/L (7-56); AST/SGOT 28 U/L (14-36); BLOOD UREA NITROGEN 9 mg/dL (7-21); CALCIUM 8.5 mg/dL (8.4-10.5); CARBON DIOXIDE 20 mmol/L (21-33); CHLORIDE 92 mmol/L (98-107); GFR AFRICAN-AMERICAN > 60; GLUCOSE,RANDOM 78 mg/dL (70-110); MAGNESIUM 1.3 mg/dL (1.7-2.2); POTASSIUM 3.9 mmol/L (3.6-5.0); SODIUM 123 mmol/L (132-148); TOTAL PROTEIN 5.4 g/dL (5.8-8.3)
[2017-03-01] MEDS: Magnesium Oxide 400 mg Tab UD PO SCH ×2 (09:49→17:48)
[2017-03-01] MEDS: Sodium Chloride 0.9% 500 ML IV SCH (11:17)
[2017-03-01] MEDS ORDERED: Magnesium Sulfate 1 gm in D5W 1 GM/100 ML BAG IV ONE (15:01)
[2017-03-01] MEDS ORDERED: Tolvaptan 15 MG TAB PO ONE (17:17)
--- NOTE | 2017-03-01 18:51 | PN ---
DATE: 03/01/2017 This is the patient's hospital visit on medical floor. For Dr. Lind. SUBJECTIVE: The patient is a 77-year-old female, seen sitting up in bed with family members at the bedside, in no acute distress; however, with the family friend reporting erratic behavior, possible owning, yesterday also possibly related to her severe electrolytes imbalance which is being corrected her hyponatremic indices. She continues her IV fluids with her appetite modestly improved. OBJECTIVE: VITAL SIGNS: Temperature 98.2, pulse 82, respirations 20, blood pressure 140/83, and pulse oximetry 97%. PHYSICAL EXAMINATION: HEENT: Unremarkable. NECK: Supple. HEART: Regular rate. LUNGS: Clear. ABDOMEN: Soft and nontender. EXTREMITIES: No edema. SKIN: Warm, dry, and clear. NEUROLOGIC: Awake, alert, but confused to certain questions. LABORATORY DATA: The patient's labs were done white blood cell count of 5.7, hemoglobin of 9.8, hematocrit 28.5, and platelet count of 197,000. The chem metabolic panel within normal range with a sodium of 123, chloride of 92, carbon dioxide of 20, magnesium 1.3, percent saturation of iron of 14%, otherwise normal chem metabolic panel. ASSESSMENT: Mental status change, hyponatremia, status post fall, electrolytes disturbance, gait disturbance, degenerative joint disease, history of renal cell carcinoma with a right nephrectomy with metastasis to the lung, history of hypertension. PLAN: Continue present medical regimen as per Dr. Nicholas, renal with consideration for Samsca as indicated with salt added to her diet with normal saline at 70 mL an hour. We will also continue her present medical regimen and evaluation with Dr. Turk was appreciated as the patient also suffers from a 5.3 abdominal aortic aneurysm. We will monitor clinically and with labs. Also consults with Dr Edwards / Neurology, and Dr Love / Pulm. Luis Zafar MD PERLITA
--- NOTE | 2017-03-01 23:29 | PN ---
DATE: SUBJECTIVE: The patient is 77 years old, seen and examined. She was getting slightly disoriented last night, however, she improved after she received one dose of Ativan. Doing well. She offered no complaint. PHYSICAL EXAMINATION: VITAL SIGNS: She is afebrile. Pulse 82, respirations 20, blood pressure 148/80. LUNGS: Bilateral fair airflow. No rhonchi or crackles. HEART: S1 and S2 audible. ABDOMEN: Soft, nontender. No rebound. No guarding. NEUROLOGICAL: She is awake and alert, answer appropriately, answer simple questions. Able to move all extremities. No focal deficit. No leg edema. LABORATORY EXAM: WBC's 5.7, hemoglobin 9.8, hematocrit 28.5, platelets of 197. Chemistries; sodium 123, potassium 3.9, chloride 92, CO2 of 20, BUN 9, creatinine 0.5. Blood sugar of 78. Magnesium 1.3. ASSESSMENT: 1. Hyponatremia. 2. Status post fall. 3. Status post altered mental status. 4. Metastatic malignancy. 5. Coronary artery disease. 6. History of renal cell carcinoma, status post right nephrectomy. 7. Hypomagnesemia. PLAN: Currently, the patient is getting p.o. magnesium. Give 1 gm of IV magnesium. She is on IV saline and follow up her electrolytes. Encourage ambulation. TCU evaluation has been requested. Daniel Samayoa MD
[2017-03-02] MEDS: Sodium Chloride 0.9% 500 ML IV SCH (03:00)
[2017-03-02] MEDS ORDERED: Metoprolol Succinate 25 mg XL Tab PO STA (06:08)
[2017-03-02 07:17] LABS: BASO # 0.01 K/mm3 (0.0-2.0); BASO % 0.1 % (0.0-3.0); EOS % 0.4 % (1.5-5.0); GRAN # 5.79 (1.4-6.5); GRAN % 80.1 % (50.0-68.0); HEMATOCRIT 33.1 % (36.0-48.0); LYMPH # 0.5 (1.2-3.4); LYMPH % 7.5 % (22.0-35.0); MEAN CELL VOLUME 96.5 fl (80.0-105.0); MEAN CORPUSCULAR HEMOGLOBIN 32.9 pg (25.0-35.0); MEAN CORPUSCULAR HGB CONC 34.1 g/dl (31.0-37.0); MEAN PLATELET VOLUME 9.3 fl (7.0-11.0); MONO # 0.9 (0.1-0.6); MONO % 11.9 % (1.0-6.0); RED CELL DISTRIBUTION WIDTH 13.2 % (11.5-14.5); WHITE BLOOD COUNT 7.2 10^3/ul (4.5-11.0)
[2017-03-02 07:22] LABS: ALB/GLOB RATIO 1.3 (1.1-1.8); ALKALINE PHOSPHATASE 78 U/L (38-126); ALT/SGPT 29 U/L (7-56); AST/SGOT 28 U/L (14-36); BILIRUBIN,TOTAL 0.5 mg/dL (0.2-1.3); BLOOD UREA NITROGEN 9 mg/dL (7-21); CALCIUM 9.9 mg/dL (8.4-10.5); CARBON DIOXIDE 28 mmol/L (21-33); CHLORIDE 101 mmol/L (98-107); GFR AFRICAN-AMERICAN > 60; GLUCOSE,RANDOM 144 mg/dL (70-110); MAGNESIUM 1.6 mg/dL (1.7-2.2); POTASSIUM 4.4 mmol/L (3.6-5.0); SODIUM 140 mmol/L (132-148); TOTAL PROTEIN 6.6 g/dL (5.8-8.3)
--- NOTE | 2017-03-02 08:06 | CP.PCM.PN ---
Subjective - Date & Time of Evaluation Date of Evaluation: 03/02/17 Time of Evaluation: 07:00 - Subjective Subjective: Stable on 3R. She feels better. Sitting in chair. Frequent urination reported but I/O not recorded. V/S noted. PE: Lungs: clear Cor.: S1S2 Abd.: soft Ext.: no edema Neuro.: alert I/O= N/A ECG02/28: RSR, RBBB, STTW changes. No change Xray hips/pelvis: no fracture or dislocation Labs noted: Na+= 140, K+= 4.4, Mg.++= 1.6 Objective - Vital Signs/Intake and Output Vital Signs (last 24 hours): Temp Pulse Resp BP Pulse Ox 98.3 F 103 H 20 169/118 H 98 03/02/17 07:29 03/02/17 07:29 03/02/17 07:29 03/02/17 07:29 03/02/17 07:29 Intake and Output: 03/02/17 03/02/17 06:59 18:59 Intake Total 480 Balance 480 - Medications Medications: Current Medications Acetaminophen (Tylenol 325mg Tab) 650 mg PO Q4H PRN PRN Reason: Pain, Mild (1-3) Famotidine (Pepcid) 20 mg PO DAILY [facility] Last Admin: 03/01/17 09:49 Dose: 20 mg Folic Acid (Folic Acid) 1 mg PO DAILY [facility] Last Admin: 03/01/17 09:48 Dose: 1 mg Magnesium Oxide (Mag-Ox) 400 mg PO BID [facility] Last Admin: 03/01/17 17:48 Dose: 400 mg Metoprolol Succinate (Toprol Xl) 50 mg PO BRK [facility] Last Admin: 03/01/17 08:23 Dose: 50 mg Metoprolol Succinate (Toprol Xl) 25 mg PO BRK [facility] Last Admin: 03/01/17 08:23 Dose: 25 mg Morphine Sulfate (Morphine) 2 mg IVP Q4H PRN PRN Reason: Pain, severe (8-10) Prednisone (Prednisone Tab) 10 mg PO DAILY [facility] Last Admin: 03/01/17 09:48 Dose: 10 mg Tolvaptan (Samsca) 15 mg PO DAILY [facility] Stop: 03/04/17 06:18 Tramadol HCl (Ultram) 50 mg PO TID PRN PRN Reason: Pain, moderate (4-7) Last Admin: 02/28/17 02:06 Dose: 50 mg - Labs Labs: 03/02/17 07:00 03/02/17 06:45 PT 11.7 Seconds (9.9-11.8) 02/26/17 20:15 INR 1.08 (0.93-1.08) 02/26/17 20:15 APTT 34.7 Seconds (23.7-30.8) H 02/26/17 20:15 Assessment and Plan - Assessment and Plan (Free Text) Assessment: Mechanical Fall/Hip Pain/Inability to walk Sore throat Hyponatremia CAD/Remote PCI RA TAA HBP Renal cell cancer, s/p right nephrectomy with metastatic disease in the chest Former Smoker Plan: Hold tolvaptin for now. D/C IV saline. Continue PO mag. OOB to chair/ambulate/PT as víctor. per Charisma Blankenship, Dr. Mcpherson, Dr. Love and Dr. Edwards. Conservative approach to TAA given metastatic cancer. Monitor labs.
[2017-03-02] MEDS: Magnesium Oxide 400 mg Tab UD PO SCH ×2 (09:59→17:59)
[2017-03-02] MEDS ORDERED: Tolvaptan 15 MG TAB PO SCH (10:00)
[2017-03-02] MEDS: Metoprolol Succinate 50 mg XL Tab PO SCH (10:04)
[2017-03-02] MEDS: Metoprolol Succinate 25 mg XL Tab PO SCH (10:05)
[2017-03-02] MEDS ORDERED: Magnesium Sulfate 2 GM in Sodium Chloride 0.9% 100 ML IV ONE (11:40)
--- NOTE | 2017-03-02 15:10 | CT ---
PROCEDURE: CT HEAD WITHOUT CONTRAST. HISTORY: AMS, too rapidly corrected hyponatremia COMPARISON: 02/26/2017 TECHNIQUE: Axial computed tomography images were obtained through the head/brain without intravenous contrast. Radiation dose: Total exam DLP = 903 mGy-cm. This CT exam was performed using one or more of the following dose reduction techniques: Automated exposure control, adjustment of the mA and/or kV according to patient size, and/or use of iterative reconstruction technique. FINDINGS: HEMORRHAGE: No intracranial hemorrhage. BRAIN: No mass effect or edema. Periventricular white matter ischemic disease as well as generalized atrophy. VENTRICLES: Unremarkable. No hydrocephalus. CALVARIUM: Unremarkable. PARANASAL SINUSES: Unremarkable as visualized. No significant inflammatory changes. MASTOID AIR CELLS: Unremarkable as visualized. No inflammatory changes. OTHER FINDINGS: None. IMPRESSION: Periventricular white matter ischemic disease as well as generalized atrophy. No acute hemorrhage.
--- NOTE | 2017-03-02 15:57 | CP.PCM.CON ---
<Valencia Araujo - Last Filed: 03/02/17 15:59> History of Present Illness - History of Present Illness History of Present Illness: Seen and examined at the bedside this afternoon, the chart was reviewed. Request for GI consult is for evaluation for EUS biopsy. . HPI: This is a 77-year-old female with a past medical history of renal cell carcinoma with right nephrectomythe patient has metastasis to the lung. She presented to the hospital with evaluation for follow, the patient was also found to be hyponatremic. The patient had multiple diagnostic tests done. 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 She also had a CT scan of the chest which is reporting an increase in size of mediastinal/ right hilar adenopathy and or mass compatible with primary malignancy or metastatic disease. Spoke with who requests evaluation for possible EUS with biopsy. patient denies any shortness of breath, chest pains, nausea, vomiting or abdominal pain. She denies any change in bowel habits, weight loss or loss of appetite. No reports of any overt GI bleed. She reports having colonoscopy at least 5 years ago, does not recall any acute findings. Denies having endoscopy. Past medical history: Renal cell carcinoma with right nephrectomy with metastasis to the lungs, patient was treated by Dr. Miriam YOUNGER with interferon. History of hemachromatosis, polymyalgia rheumatica, aortic aneurysm, hypertension, coronary artery disease with stents, peripheral vascular disease, degenerative joint disease of the spine with osteoporosis. Surgical history: Right nephrectomy, cholecystectomy Family history: Noncontributory Allergies: No known drug allergies Medications: Reviewed as per [facility] Social history: Former smoker, drinks alcohol socially, denies substance abuse ROS: Systems reviewed with positive findings see HPI.skin the Radiology: Patient had multiple radiologic tests, reports were reviewed, CT scan of the head: No acute infarct or hemorrhage CT scan of the chest: Increased size of mediastinal/right hilar adenopathy and or mass compatible with primary malignancy or metastatic disease, pulmonary nodules, indeterminate aneurysmal dilatation of the descending aorta up to 5.0 cm, aneurysmal dilatation of descending aorta up to 4.[address] scan of abdomen and pelvis: Stomach is almost empty. There is a duodenal diverticulum, small bowel is mildly distended with fluid and air, no obstruction. Nonobstructing left renal stone, right nephrectomy, cystic lesion in the pancreatic head, unchanged since the prior study. Past Patient History - Past Social History Smoking Status: Never Smoked - CARDIAC Hx Cardiac Disorders: Yes Hx Hypertension: Yes - PULMONARY Hx Respiratory Disorders: Yes Other/Comment: renal ca with mets to lungs - NEUROLOGICAL Hx Neurological Disorder: No - RENAL Hx Renal (Kidney) Cancer: Yes Other/Comment: right side nephrectomy - HEMATOLOGICAL/ONCOLOGICAL Hx Cancer: Yes (renal CA with mets to lungs) Hx Metastesis: Yes - MUSCULOSKELETAL/RHEUMATOLOGICAL Hx Rheumatoid Arthritis: Yes - PSYCHIATRIC Hx Substance Use: No - SURGICAL HISTORY Hx Surgeries: Yes Hx Cardiac Catheterization: Yes - ANESTHESIA Hx Anesthesia Reactions: No Hx Malignant Hyperthermia: No Meds Allergies/Adverse Reactions: Allergies Allergy/AdvReac Type Severity Reaction Status Date / Time No Known Allergies Allergy Verified 02/26/17 19:52 - Medications Medications: Current Medications Acetaminophen (Tylenol 325mg Tab) 650 mg PO Q4H PRN PRN Reason: Pain, Mild (1-3) Famotidine (Pepcid) 20 mg PO DAILY [facility] Last Admin: 03/02/17 09:59 Dose: 20 mg Folic Acid (Folic Acid) 1 mg PO DAILY [facility] Last Admin: 03/02/17 09:59 Dose: 1 mg Magnesium Oxide (Mag-Ox) 400 mg PO BID [facility] Last Admin: 03/02/17 09:59 Dose: 400 mg Metoprolol Succinate (Toprol Xl) 50 mg PO K [facility] Last Admin: 03/02/17 10:04 Dose: 50 mg Metoprolol Succinate (Toprol Xl) 25 mg PO K [facility] Last Admin: 03/02/17 10:05 Dose: 25 mg Morphine Sulfate (Morphine) 2 mg IVP Q4H PRN PRN Reason: Pain, severe (8-10) Prednisone (Prednisone Tab) 10 mg PO DAILY [facility] Last Admin: 03/02/17 09:59 Dose: 10 mg Tramadol HCl (Ultram) 50 mg PO TID PRN PRN Reason: Pain, moderate (4-7) Last Admin: 02/28/17 02:06 Dose: 50 mg Physical Exam - Constitutional Appears: No Acute Distress - Head Exam Head Exam: NORMOCEPHALIC Additional comments: the patient has small suture on her head, patient states that she had an exision of the skin, wasn't from a fall. - Eye Exam Eye Exam: Normal appearance. absent: Scleral icterus - ENT Exam ENT Exam: Mucous Membranes Moist - Neck Exam Neck exam: Positive for: Normal Inspection - Respiratory Exam Respiratory Exam: Clear to Auscultation Bilateral, NORMAL BREATHING PATTERN. absent: Respiratory Distress - Cardiovascular Exam Cardiovascular Exam: +S1, +S2 - GI/Abdominal Exam GI & Abdominal Exam: Normal Bowel Sounds, Soft. absent: Guarding, Organomegaly , Rebound, Tenderness - Extremities Exam Extremities exam: Positive for: pedal pulses present. Negative for: calf tenderness, pedal edema - Neurological Exam Neurological exam: Alert, Oriented x3 - Skin Skin Exam: Dry, Warm Results - Vital Signs Recent Vital Signs: Last Vital Signs Temp 98.3 F 03/02/17 07:29 Pulse 103 H 03/02/17 07:29 Resp 20 03/02/17 07:29 BP 131/79 03/02/17 10:05 Pulse Ox 98 03/02/17 07:29 - Labs Result Diagrams: 03/02/17 07:00 03/02/17 06:45 Labs: Laboratory Results - last 24 hr 03/02/17 03/02/17 06:45 07:00 WBC 7.2 D RBC 3.43 L Hgb 11.3 L Hct 33.1 L MCV 96.5 MCH 32.9 MCHC 34.1 RDW 13.2 Plt Count 266 MPV 9.3 Gran % 80.1 H Lymph % (Auto) 7.5 L [place] % (Auto) 11.9 H Eos % (Auto) 0.4 L Baso % (Auto) 0.1 Gran # 5.79 Lymph # 0.5 L [place] # 0.9 H Eos # 0.0 Baso # 0.01 Sodium 140 Potassium 4.4 Chloride 101 Carbon Dioxide 28 Anion Gap 15 BUN 9 Creatinine 0.6 Est GFR ( Amer) > 60 Est GFR (Non-Af Amer) > 60 Random Glucose 144 H Calcium 9.9 Magnesium 1.6 L Total Bilirubin 0.5 AST 28 ALT 29 Alkaline Phosphatase 78 Total Protein 6.6 Albumin 3.7 Globulin 2.8 Albumin/Globulin Ratio 1.3 Assessment & Plan - Assessment and Plan (Free Text) Assessment: Assessment: Gait disturbance, history of renal cell carcinoma with right nephrectomy with metastasis to the lung Abnormal CT scan reportedly increased size of mediastinal/right hilar adenopathy rule out malignancy Electorlyte imbalance Pulmonary nodules status post Electrolyte imbalance Hemachromatosis Abdominal aortic aneurysm the pancreatic head, unchanged since prior study Degenerative joint disease Plan: Review CT scan of the chest and plan for EUS w/biopsy evaluation when optimal Continue GI prophylaxis on prednisone Diet as tolerated As per pulmonology and oncology Thank you for this consult and for allowing us to participate in your patient's care, further recommendations based on clinical course. Seen and discussed with Dr. Teran. <Charla Teran V - Last Filed: 03/03/17 22:33> Meds - Medications Medications: Current Medications Acetaminophen (Tylenol 325mg Tab) 650 mg PO Q4H PRN PRN Reason: Pain, Mild (1-3) Famotidine (Pepcid) 20 mg PO DAILY [facility] Last Admin: 03/03/17 09:05 Dose: 20 mg Folic Acid (Folic Acid) 1 mg PO DAILY [facility] Last Admin: 03/03/17 09:06 Dose: 1 mg Magnesium Oxide (Mag-Ox) 400 mg PO BID [facility] Last Admin: 03/03/17 18:36 Dose: 400 mg Metoprolol Succinate (Toprol Xl) 50 mg PO BRK [facility] Last Admin: 03/03/17 09:04 Dose: 50 mg Metoprolol Succinate (Toprol Xl) 25 mg PO K [facility] Last Admin: 03/03/17 09:06 Dose: 25 mg Morphine Sulfate (Morphine) 2 mg IVP Q4H PRN PRN Reason: Pain, severe (8-10) Polyethylene Glycol (Miralax) 17 gm PO DAILY [facility] Last Admin: 03/03/17 18:35 Dose: 17 gm Prednisone (Prednisone Tab) 10 mg PO DAILY [facility] Last Admin: 03/03/17 09:04 Dose: 10 mg Tolvaptan (Samsca) 15 mg PO DAILY [facility] Stop: 03/04/17 10:01 Tramadol HCl (Ultram) 50 mg PO TID PRN PRN Reason: Pain, moderate (4-7) Last Admin: 02/28/17 02:06 Dose: 50 mg Results - Vital Signs Recent Vital Signs: Last Vital Signs Temp 98 F 03/03/17 16:12 Pulse 104 H 03/03/17 16:12 Resp 20 03/03/17 16:12 BP 170/118 H 03/03/17 16:12 Pulse Ox 93 L 03/03/17 16:12 - Labs Result Diagrams: 03/03/17 05:30 03/03/17 05:30 Labs: Laboratory Results - last 24 hr 03/03/17 03/03/17 03/03/17 05:30 05:30 05:30 WBC 4.6 D RBC 3.02 L Hgb 10.0 L Hct 29.6 L MCV 98.0 MCH 33.1 MCHC 33.8 RDW 13.5 Plt Count 218 MPV 9.0 Sodium 138 Potassium 3.9 Chloride 100 Carbon Dioxide 30 Anion Gap 12 BUN 11 Creatinine 0.6 Est GFR ( Amer) > 60 Est GFR (Non-Af Amer) > 60 Random Glucose 92 Serum Osmolality 286 Calcium 9.5 Phosphorus 5.1 H Magnesium 1.5 L Total Bilirubin 0.5 AST 27 ALT 38 Alkaline Phosphatase 62 Total Protein 5.9 Albumin 3.2 Globulin 2.7 Albumin/Globulin Ratio 1.2 Attending/Attestation - Attestation I have personally seen and examined this patient.: No I have fully participated in the care of the patient.: Yes I have reviewed all pertinent clinical information: Yes Notes (Text): 03/03/17 22:[address] scan was reviewed. Will discuss with the Dr. Lind regarding EUS
--- NOTE | 2017-03-02 17:42 | CP.PCM.CON ---
History of Present Illness - History of Present Illness History of Present Illness: General Surgery Consult note for Dr. Lloyd A 77 year old female presents for a fall. Patient is consulted for removal of stitches prior to transfer to TCU. Patient has no complaints. She denies F/C, bleeding from site of sutures, pain, irritation at site of sutures. sutures removed at bedside. No difficulties. Patient states the sutures have been there for 10 days. PMH: RA, CAD with stents, Renal cancer s/p right nephrectomy with metastasis to the lungs, presents to the emergency department for evaluation after mechanical fall yesterday. PSH: R nephrectomy, Past Patient History - Past Social History Smoking Status: Never Smoked - CARDIAC Hx Cardiac Disorders: Yes Hx Hypertension: Yes - PULMONARY Hx Respiratory Disorders: Yes Other/Comment: renal ca with mets to lungs - NEUROLOGICAL Hx Neurological Disorder: No - RENAL Hx Renal (Kidney) Cancer: Yes Other/Comment: right side nephrectomy - HEMATOLOGICAL/ONCOLOGICAL Hx Cancer: Yes (renal CA with mets to lungs) Hx Metastesis: Yes - MUSCULOSKELETAL/RHEUMATOLOGICAL Hx Rheumatoid Arthritis: Yes - PSYCHIATRIC Hx Substance Use: No - SURGICAL HISTORY Hx Surgeries: Yes Hx Cardiac Catheterization: Yes - ANESTHESIA Hx Anesthesia Reactions: No Hx Malignant Hyperthermia: No Meds Allergies/Adverse Reactions: Allergies Allergy/AdvReac Type Severity Reaction Status Date / Time No Known Allergies Allergy Verified 02/26/17 19:52 - Medications Medications: Current Medications Acetaminophen (Tylenol 325mg Tab) 650 mg PO Q4H PRN PRN Reason: Pain, Mild (1-3) Famotidine (Pepcid) 20 mg PO DAILY [facility] Last Admin: 03/02/17 09:59 Dose: 20 mg Folic Acid (Folic Acid) 1 mg PO DAILY [facility] Last Admin: 03/02/17 09:59 Dose: 1 mg Magnesium Oxide (Mag-Ox) 400 mg PO BID [facility] Last Admin: 03/02/17 09:59 Dose: 400 mg Metoprolol Succinate (Toprol Xl) 50 mg PO BRK [facility] Last Admin: 03/02/17 10:04 Dose: 50 mg Metoprolol Succinate (Toprol Xl) 25 mg PO BRK [facility] Last Admin: 03/02/17 10:05 Dose: 25 mg Morphine Sulfate (Morphine) 2 mg IVP Q4H PRN PRN Reason: Pain, severe (8-10) Prednisone (Prednisone Tab) 10 mg PO DAILY [facility] Last Admin: 03/02/17 09:59 Dose: 10 mg Tramadol HCl (Ultram) 50 mg PO TID PRN PRN Reason: Pain, moderate (4-7) Last Admin: 02/28/17 02:06 Dose: 50 mg Physical Exam - Constitutional Appears: Non-toxic - Head Exam Head Exam: absent: NORMAL INSPECTION Additional comments: suture site no erythema, opening, drainage, purulence skin approximated and healed. scalp is dry and flaky - Eye Exam Eye Exam: EOMI, Normal appearance - ENT Exam ENT Exam: Mucous Membranes Moist Results - Vital Signs Recent Vital Signs: Last Vital Signs Temp 98.3 F 03/02/17 07:29 Pulse 103 H 03/02/17 07:29 Resp 20 03/02/17 07:29 BP 131/79 03/02/17 10:05 Pulse Ox 98 03/02/17 07:29 - Labs Result Diagrams: 03/02/17 07:00 03/02/17 06:45 Labs: Laboratory Results - last 24 hr 03/02/17 03/02/17 06:45 07:00 WBC 7.2 D RBC 3.43 L Hgb 11.3 L Hct 33.1 L MCV 96.5 MCH 32.9 MCHC 34.1 RDW 13.2 Plt Count 266 MPV 9.3 Gran % 80.1 H Lymph % (Auto) 7.5 L [place] % (Auto) 11.9 H Eos % (Auto) 0.4 L Baso % (Auto) 0.1 Gran # 5.79 Lymph # 0.5 L [place] # 0.9 H Eos # 0.0 Baso # 0.01 Sodium 140 Potassium 4.4 Chloride 101 Carbon Dioxide 28 Anion Gap 15 BUN 9 Creatinine 0.6 Est GFR ( Amer) > 60 Est GFR (Non-Af Amer) > 60 Random Glucose 144 H Calcium 9.9 Magnesium 1.6 L Total Bilirubin 0.5 AST 28 ALT 29 Alkaline Phosphatase 78 Total Protein 6.6 Albumin 3.7 Globulin 2.8 Albumin/Globulin Ratio 1.3 Assessment & Plan - Assessment and Plan (Free Text) Assessment: 77F presents with a fall and had sutures removed. Plan: c/w current medical management c/w pain control transfer to TCU per primary monitor site of suture removal for induration, drainage, purulence, erythema d/w Dr. Gabino Oakes, DO PGY1 - Date & Time Date: 03/02/17 Time: 17:47
--- NOTE | 2017-03-02 21:23 | CP.PCM.CON ---
<Thor Larios - Last Filed: 03/02/17 22:32> History of Present Illness - History of Present Illness History of Present Illness: Neurology Consult Note for Dr. Edwards Service. 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 Neurology was consulted for mental status changes. As per prior charting, patient has been becoming increasingly disoriented and agitated at night, requiring administration of ativan as per primary. Seen by surgery today, who reports patient conversant, no acute distress noted during exam, but patient is poorly oriented to time (thinks she has been at [facility] for ~10 days, has only been here for 5). At time of exam, denies any acute complaints. All ROS in 12-point system review negative, but limited reliability due to disorientation to time. 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 PMH: as above PSH: R nephrectomy, unspecified head biopsy SHx: denies tobacco/illicits/IVDA, admits to social alcohol FHx: Patient unsure PMD: Dr. Pandey Review of Systems - Review of Systems All systems: reviewed and no additional remarkable complaints except (as per HPI ) Past Patient History - Past Social History Smoking Status: Never Smoked - CARDIAC Hx Cardiac Disorders: Yes Hx Hypertension: Yes - PULMONARY Hx Respiratory Disorders: Yes Other/Comment: renal ca with mets to lungs - NEUROLOGICAL Hx Neurological Disorder: No - RENAL Hx Renal (Kidney) Cancer: Yes Other/Comment: right side nephrectomy - HEMATOLOGICAL/ONCOLOGICAL Hx Cancer: Yes (renal CA with mets to lungs) Hx Metastesis: Yes - MUSCULOSKELETAL/RHEUMATOLOGICAL Hx Rheumatoid Arthritis: Yes - PSYCHIATRIC Hx Substance Use: No - SURGICAL HISTORY Hx Surgeries: Yes Hx Cardiac Catheterization: Yes - ANESTHESIA Hx Anesthesia Reactions: No Hx Malignant Hyperthermia: No Meds Allergies/Adverse Reactions: Allergies Allergy/AdvReac Type Severity Reaction Status Date / Time No Known Allergies Allergy Verified 02/26/17 19:52 - Medications Medications: Current Medications Acetaminophen (Tylenol 325mg Tab) 650 mg PO Q4H PRN PRN Reason: Pain, Mild (1-3) Famotidine (Pepcid) 20 mg PO DAILY [facility] Last Admin: 03/02/17 09:59 Dose: 20 mg Folic Acid (Folic Acid) 1 mg PO DAILY [facility] Last Admin: 03/02/17 09:59 Dose: 1 mg Magnesium Oxide (Mag-Ox) 400 mg PO BID [facility] Last Admin: 03/02/17 17:59 Dose: 400 mg Metoprolol Succinate (Toprol Xl) 50 mg PO BRK [facility] Last Admin: 03/02/17 10:04 Dose: 50 mg Metoprolol Succinate (Toprol Xl) 25 mg PO BRK [facility] Last Admin: 03/02/17 10:05 Dose: 25 mg Morphine Sulfate (Morphine) 2 mg IVP Q4H PRN PRN Reason: Pain, severe (8-10) Prednisone (Prednisone Tab) 10 mg PO DAILY [facility] Last Admin: 03/02/17 09:59 Dose: 10 mg Tolvaptan (Samsca) 15 mg PO DAILY [facility] Stop: 03/04/17 18:48 Tramadol HCl (Ultram) 50 mg PO TID PRN PRN Reason: Pain, moderate (4-7) Last Admin: 02/28/17 02:06 Dose: 50 mg Physical Exam - Constitutional Appears: Non-toxic, No Acute Distress - Head Exam Head Exam: ATRAUMATIC. absent: NORMOCEPHALIC Additional comments: Healing biopsy site without dehiscence/drainage/erythema/discharge; sutures still in place - Eye Exam Eye Exam: EOMI, Normal appearance. absent: Conjunctival injection, Scleral icterus Pupil Exam: absent: Irregular, Unequal - ENT Exam ENT Exam: Mucous Membranes Moist. absent: Mucous Membranes Dry - Neck Exam Neck exam: Positive for: Full Rom, Normal Inspection - Respiratory Exam Respiratory Exam: Clear to Auscultation Bilateral, NORMAL BREATHING PATTERN. absent: Accessory Muscle Use, Chest Wall Tenderness, Decreased Breath Sounds, Rales, Rhonchi, Wheezes - Cardiovascular Exam Cardiovascular Exam: REGULAR RHYTHM, RRR, +S1, +S2. absent: Bradycardia, Tachycardia, Irregular Rhythm, JVD, +S4 - GI/Abdominal Exam GI & Abdominal Exam: Normal Bowel Sounds, Soft. absent: Distended, Firm, Guarding, Rigid, Tenderness - Extremities Exam Extremities exam: Positive for: normal capillary refill, normal inspection, pedal pulses present. Negative for: calf tenderness, pedal edema, tenderness - Neurological Exam Additional comments: awake and alert, following all commands, moving all extremities spontaneously - Psychiatric Exam Psychiatric exam: Normal Affect, Normal Mood Additional comments: Oriented to self and location, disoriented to time (thinks here for ~ 10 days, here for half of that), but answering most questions appropriately and following most commands, so comprehension appears intact. - Skin Skin Exam: Dry, Intact, Normal Color, Warm Results - Vital Signs Recent Vital Signs: Last Vital Signs Temp 97.6 F 03/02/17 16:00 Pulse 89 03/02/17 16:00 Resp 20 03/02/17 16:00 BP 156/104 H 03/02/17 16:00 Pulse Ox 97 03/02/17 16:00 - Labs Result Diagrams: 03/02/17 07:00 03/02/17 06:45 Labs: Laboratory Results - last 24 hr 03/02/17 03/02/17 06:45 07:00 WBC 7.2 D RBC 3.43 L Hgb 11.3 L Hct 33.1 L MCV 96.5 MCH 32.9 MCHC 34.1 RDW 13.2 Plt Count 266 MPV 9.3 Gran % 80.1 H Lymph % (Auto) 7.5 L Elbert % (Auto) 11.9 H Eos % (Auto) 0.4 L Baso % (Auto) 0.1 Gran # 5.79 Lymph # 0.5 L Elbert # 0.9 H Eos # 0.0 Baso # 0.01 Sodium 140 Potassium 4.4 Chloride 101 Carbon Dioxide 28 Anion Gap 15 BUN 9 Creatinine 0.6 Est GFR ( Amer) > 60 Est GFR (Non-Af Amer) > 60 Random Glucose 144 H Calcium 9.9 Magnesium 1.6 L Total Bilirubin 0.5 AST 28 ALT 29 Alkaline Phosphatase 78 Total Protein 6.6 Albumin 3.7 Globulin 2.8 Albumin/Globulin Ratio 1.3 Assessment & Plan - Assessment and Plan (Free Text) Assessment: This is a 77 yo F with PMH of RA, HTN, CAD w/ stents, Renal cell ca with lung mets s/p R nephrectomy, and increasing size AAA who presented initially to [facility] after mechanical fall (tripped on chair) without head trauma or LOC. Neurology was consulted for mental status changes. Her mental status changes are likely 2/2 too-rapidly corrected sodium and sundowning 2/2 hospital-associated delirium. Head CT was ordered to assess for possible pontine demyelination due to her over-corrected sodium. Plan: 1) Head CT to assess for possible central pontine myelinolysis, f/u 2) Delirium precautions (frequent daytime reorientations, avoid nighttime interruptions) 3) Avoid overly sedating medications 4) Na replacement as per primary, avoid further aggressive Na increases (goal is 10-12 in 24 hours, 18 in 48 hours) Discussed and reviewed with attending, Dr. Edwards. <Asher Edwards - Last Filed: 03/03/17 10:42> Meds - Medications Medications: Current Medications Acetaminophen (Tylenol 325mg Tab) 650 mg PO Q4H PRN PRN Reason: Pain, Mild (1-3) Famotidine (Pepcid) 20 mg PO DAILY [facility] Last Admin: 03/03/17 09:05 Dose: 20 mg Folic Acid (Folic Acid) 1 mg PO DAILY [facility] Last Admin: 03/03/17 09:06 Dose: 1 mg Magnesium Oxide (Mag-Ox) 400 mg PO BID [facility] Last Admin: 03/03/17 09:05 Dose: 400 mg Metoprolol Succinate (Toprol Xl) 50 mg PO BRK [facility] Last Admin: 03/03/17 09:04 Dose: 50 mg Metoprolol Succinate (Toprol Xl) 25 mg PO BRK [facility] Last Admin: 03/03/17 09:06 Dose: 25 mg Morphine Sulfate (Morphine) 2 mg IVP Q4H PRN PRN Reason: Pain, severe (8-10) Prednisone (Prednisone Tab) 10 mg PO DAILY [facility] Last Admin: 03/03/17 09:04 Dose: 10 mg Tolvaptan (Samsca) 15 mg PO DAILY [facility] Stop: 03/04/17 18:48 Tramadol HCl (Ultram) 50 mg PO TID PRN PRN Reason: Pain, moderate (4-7) Last Admin: 02/28/17 02:06 Dose: 50 mg Results - Vital Signs Recent Vital Signs: Last Vital Signs Temp 98.3 F 03/03/17 07:28 Pulse 97 H 03/03/17 07:28 Resp 20 03/03/17 07:28 BP 161/89 H 03/03/17 09:06 Pulse Ox 96 03/03/17 07:28 - Labs Result Diagrams: 03/03/17 05:30 03/03/17 05:30 Labs: Laboratory Results - last 24 hr 03/03/17 03/03/17 03/03/17 05:30 05:30 05:30 WBC 4.6 D RBC 3.02 L Hgb 10.0 L Hct 29.6 L MCV 98.0 MCH 33.1 MCHC 33.8 RDW 13.5 Plt Count 218 MPV 9.0 Sodium 138 Potassium 3.9 Chloride 100 Carbon Dioxide 30 Anion Gap 12 BUN 11 Creatinine 0.6 Est GFR ( Amer) > 60 Est GFR (Non-Af Amer) > 60 Random Glucose 92 Serum Osmolality 286 Calcium 9.5 Phosphorus 5.1 H Magnesium 1.5 L Total Bilirubin 0.5 AST 27 ALT 38 Alkaline Phosphatase 62 Total Protein 5.9 Albumin 3.2 Globulin 2.7 Albumin/Globulin Ratio 1.2 Attending/Attestation - Attestation I have personally seen and examined this patient.: Yes I have fully participated in the care of the patient.: Yes I have reviewed all pertinent clinical information: Yes
[2017-03-03 05:53] LABS: HEMATOCRIT 29.6 % (36.0-48.0); MEAN CORPUSCULAR HEMOGLOBIN 33.1 pg (25.0-35.0); MEAN CORPUSCULAR HGB CONC 33.8 g/dl (31.0-37.0); RED CELL DISTRIBUTION WIDTH 13.5 % (11.5-14.5); WHITE BLOOD COUNT 4.6 10^3/ul (4.5-11.0)
--- NOTE | 2017-03-03 06:11 | PN ---
The patient is in room #563, bed #1. SUBJECTIVE: This is a 77-year-old female who was admitted through the emergency room after she fallen at home, was found to be slightly confused, had electrolyte abnormalities with sodium, was admitted to the floor, and over the course of the last 3 days, gradually improved. In view of her mental confusion, the patient has had CAT scan of the head done. She has been seen by Neurology, Cardiology and by Oncology service as well. The patient was diagnosed with metastatic renal cell carcinoma, diagnosed about 17 years ago for that she underwent a right nephrectomy following which lung metastasis which she has for more than 4 years now in both lungs, she was treated with interferon, and over the period of 8 years, all the lesions disappeared. After the 8th year, the interferon was stopped because of progressively worsening neuropathy, and after 2 years of stopping the interferon, the lung nodules again resurfaced, especially in the left upper lung field. In view of her smoking history where she was a smoker before the diagnosis of cancer, the patient had re-biopsy of these lung lesions and thought these could be metastatic lesions, put back on interferon for the last 2 years and she has come back recently for some abnormalities seen on the CAT scan on 02/27/2017. The patient had CAT scan of the chest, abdomen and pelvis done every 6 months for the last several years and the CAT scan essentially showed evidence of a scar, last one done on 12/04/2016. The patient during one of these workups was found to have thoracic outlet which is being monitored by Dr. Pro Austin. She also had cardiac catheterization and a stenting. In addition to that, the patient has peripheral vascular disease, and in 2014, she had stenting of the right femoral artery for vascular changes in her right foot including a small ulceration of the toe. The patient in addition to all of these had more recently about a year and a half to two years ago diagnosis made of rheumatoid arthritis, was initially treated with prednisone and then kept on methotrexate, and recently being assessed for a drug called Enbrel which she had not yet started as she wanted to get an opinion from us as to whether she should start the medication or not. Unfortunately, prior to getting started, the patient was admitted to the hospital. She also tells me she has a lesion of her scalp on the vertex of the scalp on the front of the head where she had biopsy by Dr. Helena Carpenter. She tells me she was given two forms of creams to apply and she appears to have lost her hair in that aspect of scalp. The biopsy results are still pending, it was done about [address] Carpenter's office. Since admission, the patient has had intermittent periods of confusion and the question was whether this was related to the hyponatremia. The patient tells me even tough she is very much awake, alert and oriented that she has problems putting her words together and also has problems with orientation to time though she was able to recognize me and had a very intelligent conversation with me today during the exam. Subjectively, the patient tells me she has been feeling better, she is walking around on her own and overall feels better since the last 24 hours. Denies any history of nausea or vomiting. No history of hemoptysis and no history of fevers or chills, and the patient appears to be as far as mentally more with herself as of today. PHYSICAL EXAMINATION GENERAL: The patient is awake, alert and oriented. VITAL SIGNS: Stable as stated on the chart. Today, T-max is 98.4, pulse rate is 89, blood pressure is 156/104, respirations 20, O2 sat is 97% on room air. HEENT: Head is normocephalic and atraumatic. On the midportion of her vertex, the sutures noted with loss of hair in that area where Dr. Carpenter had done recent surgical biopsy, results of which are pending. Pupils are equally reactive to light and accommodation. Examination of the oropharynx revealed no oropharyngeal lesions. NECK: Supple. There is no adenopathy. No jugular venous distention noted. LUNGS: Clear to percussion and auscultation. CARDIOVASCULAR: Reveals PMI to be in the fifth intercostal space inside the midclavicular line. S1 and S2 are normal. No gallop or murmur is heard. ABDOMEN: Soft, nontender. Bowel sounds are present. EXTREMITIES: Reveal no cyanosis, clubbing or edema. GENITOURINARY AND RECTAL: Deferred. LYMPHATICS: On check for nodes, there is no evidence of adenopathy in the neck, axilla or groin. NEUROLOGIC: The patient has no gross focal deficits, but she has problems in remembering things, remembering events, and especially she is messed up as far as time sense is concerned though she was able to recognize me and we had a very decent conversation and she was able to give me all the information of what has happened to her since November when I last saw her. LABORATORY DATA: From today, I reviewed sodium which was 123, is up to 140; potassium is 4.4; chloride is 101; BUN is 9; creatinine 0.6; random sugar is 144; magnesium is 1.6; LFTs are normal; LDH is within normal limits as well. CBC was also reviewed. CBC shows white count of 7.2, hemoglobin 11.3, hematocrit 33, platelet count of 266,000. CAT of the most recent visit definitively reveals right hilar mass. In addition to that, there are lung nodules and old calcified left upper lobe granuloma. In view of this, I had a long discussion with Dr. Kessler, spoke to the patient, also spoke to Dr. Love who saw the patient and he agrees that in view of the hilar mass we should at least try to get the input from GI to see if the patient is a candidate for endoscopy and endoscopic ultrasound with biopsy of the mediastinal mass to have better idea of what this could represent. It is possible that the hyponatremia could be syndrome of inappropriate antidiuretic hormone secretion from the central lung mass which could be a primary versus recurrence of her renal cell carcinoma. The patient does have a history of smoking though she quit about 17 years ago. The patient is in agreement that she will wait to see how things proceed. Consultation with Dr. Teran has been obtained and we will try to get the endoscopy and endoscopic ultrasound as soon as possible while the patient is in the hospital and continue to monitor the patient very carefully. 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 She has been put on 15 mg once a day. Continue to monitor the patient's electrolytes very carefully. We will get input from Neurology as well. Routine post exam instructions have been given to the patient. Time spent with the patient is greater than 90 minutes. Tania Lind MD
[2017-03-03 07:27] LABS: ALB/GLOB RATIO 1.2 (1.1-1.8); ALKALINE PHOSPHATASE 62 U/L (38-126); ALT/SGPT 38 U/L (7-56); AST/SGOT 27 U/L (14-36); BILIRUBIN,TOTAL 0.5 mg/dL (0.2-1.3); BLOOD UREA NITROGEN 11 mg/dL (7-21); CALCIUM 9.5 mg/dL (8.4-10.5); CARBON DIOXIDE 30 mmol/L (21-33); CHLORIDE 100 mmol/L (95-110); GFR AFRICAN-AMERICAN > 60; GLUCOSE,RANDOM 92 mg/dL (70-110); MAGNESIUM 1.5 mg/dL (1.7-2.2); PHOSPHOROUS 5.1 mg/dL (2.5-4.5); POTASSIUM 3.9 mmol/L (3.6-5.0); SODIUM 138 mmol/L (132-148); TOTAL PROTEIN 5.9 g/dL (5.8-8.3)
--- NOTE | 2017-03-03 07:57 | CP.PCM.PN ---
Subjective - Date & Time of Evaluation Date of Evaluation: 03/03/17 Time of Evaluation: 07:00 - Subjective Subjective: Stable on 3R. She feels better. Sitting in chair. V/S noted. PE: Lungs: clear Cor.: S1S2 Abd.: soft Ext.: no edema Neuro.: alert I/O= 780/400 recorded ECG 02/28: RSR, RBBB, STTW changes. No change Xray hips/pelvis: no fracture or dislocation CT Head: noted Labs noted: Na+= 138, K+= 3.9, Mg.++= 1.5, H/H 04/12.6 Objective - Vital Signs/Intake and Output Vital Signs (last 24 hours): Temp Pulse Resp BP Pulse Ox 98.3 F 97 H 20 161/89 H 96 03/03/17 07:28 03/03/17 07:28 03/03/17 07:28 03/03/17 07:28 03/03/17 07:28 Intake and Output: 03/03/17 03/03/17 06:59 18:59 Intake Total 780 Output Total 400 Balance 380 - Medications Medications: Current Medications Acetaminophen (Tylenol 325mg Tab) 650 mg PO Q4H PRN PRN Reason: Pain, Mild (1-3) Famotidine (Pepcid) 20 mg PO DAILY [facility] Last Admin: 03/02/17 09:59 Dose: 20 mg Folic Acid (Folic Acid) 1 mg PO DAILY [facility] Last Admin: 03/02/17 09:59 Dose: 1 mg Magnesium Oxide (Mag-Ox) 400 mg PO BID [facility] Last Admin: 03/02/17 17:59 Dose: 400 mg Metoprolol Succinate (Toprol Xl) 50 mg PO BRK [facility] Last Admin: 03/02/17 10:04 Dose: 50 mg Metoprolol Succinate (Toprol Xl) 25 mg PO BRK [facility] Last Admin: 03/02/17 10:05 Dose: 25 mg Morphine Sulfate (Morphine) 2 mg IVP Q4H PRN PRN Reason: Pain, severe (8-10) Prednisone (Prednisone Tab) 10 mg PO DAILY [facility] Last Admin: 03/02/17 09:59 Dose: 10 mg Tolvaptan (Samsca) 15 mg PO DAILY [facility] Stop: 03/04/17 18:48 Tramadol HCl (Ultram) 50 mg PO TID PRN PRN Reason: Pain, moderate (4-7) Last Admin: 02/28/17 02:06 Dose: 50 mg - Labs Labs: 03/03/17 05:30 03/03/17 05:30 PT 11.7 Seconds (9.9-11.8) 02/26/17 20:15 INR 1.08 (0.93-1.08) 02/26/17 20:15 APTT 34.7 Seconds (23.7-30.8) H 02/26/17 20:15 Assessment and Plan - Assessment and Plan (Free Text) Assessment: Mechanical Fall/Hip Pain/Inability to walk Sore throat, resolved Hyponatremia, resolved. Possible SIADH CAD/Remote PCI RA TAA HBP Renal cell cancer, s/p right nephrectomy with metastatic disease in the chest Former Smoker Plan: Tolvaptin as per Drs. Lind and Ky Continue PO mag. GI evaluation for EUS bx. OOB to chair/ambulate/PT as víctor. per Dr. Zafar, Dr. Lind, Dr. Mcpherson, Dr. Love, Dr. Teran and Dr. Edwards. Conservative approach to TAA given metastatic cancer. Monitor labs, Na.+, Mg.++. TCU eval.
--- NOTE | 2017-03-03 08:34 | PN ---
DATE: 03/02/2017 HISTORY OF PRESENT ILLNESS: The patient has no complaints of any chest pain. No shortness of breath. No headaches. The patient was initially admitted to the hospital because of fall and difficulty ambulating. She was found to be hyponatremic. She has multiple pulmonary nodules. She was seen by oncology Dr. Lind's group. The patient does have a history of renal cell carcinoma with right nephrectomy with metastasis to the lungs. She will most likely need subacute rehab. PHYSICAL EXAMINATION: VITAL SIGNS: Temperature is 97.6, pulse of 100, blood pressure 154/90, respiration 20, and O2 saturation 98%. GENERAL: The patient is lying in bed, flat, comfortable. HEENT: No oral lesion. Anicteric sclerae. Moist mucosa. NECK: No JVD, adenopathy, or thyromegaly. CARDIOVASCULAR: S1 and S2, regular. No murmurs, rubs, or gallops. LUNGS: Clear to auscultation bilaterally. No wheeze, rales, or rhonchi. ABDOMEN: Bowel sounds are positive, soft, nontender and nondistended. EXTREMITIES: No cyanosis, clubbing or edema. ASSESSMENT: 1. Fall. 2. Hyponatremia. 3. Rheumatoid arthritis. 4. Renal cell carcinoma with right nephrectomy and metastasis to the lung. 5. Delirium. 6. Degenerative joint disease. 7. Hypertension. 8. Coronary artery disease with stent. 9. Mediastinal adenopathy. 10. Ascending aortic aneurysm, 5.3 cm, similar to prior study. 11. Right cholecystectomy. 12. Nephrolithiasis in the left kidney. 13. Polymyalgia rheumatica. 14. Hypomagnesemia. 15. Iron deficiency anemia. PLAN: The patient is currently comfortable. The patient is on folic acid. Is going to continue with magnesium replacement. The patient is on IV fluids. I will discontinue the patient's IV fluids. The patient's urine studies have not been sent. I will speak with the nursing staff again. I will start patient on to help improve with patient's hyponatremia. Her TSH has been normal. She does have iron deficiency with saturation of 14%. She also has hypomagnesemia. Collins Mcpherson MD [facility] # [id number] PERLITA
[2017-03-03] MEDS: Metoprolol Succinate 50 mg XL Tab PO SCH (09:04)
[2017-03-03] MEDS: Magnesium Oxide 400 mg Tab UD PO SCH ×2 (09:05→18:36)
[2017-03-03] MEDS: Metoprolol Succinate 25 mg XL Tab PO SCH (09:06)
--- NOTE | 2017-03-03 10:49 | CON ---
DATE: 03/02/2017 PULMONARY CONSULT REFERRING PHYSICIAN: Dr. Lind. REASON FOR CONSULT: Recurrent lung tumor and multi-joint pain. HISTORY OF PRESENT ILLNESS: This is a 77 years old female with past medical history significant for renal cell carcinoma, history of nephrectomy, did have a history of metastatic disease to the lung. Responded well in the past to interferon with disappearing of the lesions. The last couple of months, has been having joint pain, muscle pain, been followed by Rheumatology. Other issues are hypertension, coronary artery disease, history of coronary stent, aortic aneurysm, came into emergency room because of having multiple joint pain, falling, and was admitted. On workup, it shows new lesion in the lung. Presently, sitting up in a chair. No sputum production, no hemoptysis. No hematemesis. No hematuria. No diarrhea reported. PAST MEDICAL HISTORY: As per history of present illness. ALLERGIES: NONE KNOWN. FAMILY HISTORY: No significant cardiopulmonary disease reported. SOCIAL HISTORY: Nonsmoker, nondrinker. MEDICATIONS: She is on folic acid 1 mg daily, mag oxide 400 mg twice a day, morphine 2 mg q. 4 hours p.r.n., Pepcid 20 mg daily, prednisone 10 mg daily. She is on Samsca 15 mg daily, Toprol-XL 50 mg daily, Tylenol p.r.n. basis, Ultram 50 mg q. 8 hours p.r.n. REVIEW OF SYSTEMS: No headache, no rhinitis, gets short of breath. Body aches and pain, multiple joint pain. No chest pain. No nausea. No vomiting. No diarrhea. No leg swelling. PHYSICAL EXAMINATION: GENERAL: Sitting up in a chair, in no acute distress. VITAL SIGNS: Temperature is 98, heart rate 103, respiratory rate is 20, blood pressure 156/104, pulse ox 98% on room air. HEENT: Moist mucous membrane. No oral thrush. NECK: Supple. No JVD. LUNGS: Fair airflow with a few rhonchi. HEART: S1 and S2. ABDOMEN: Soft and nontender. No organomegaly. EXTREMITIES: No edema. NEUROLOGIC: Awake and follow simple commands. LABORATORY DATA: Shows hemoglobin 11.3, hematocrit 33.1, WBC 7.2, and platelet is 266. Sodium 140, potassium 4.4, chloride 101, bicarbonate 28, BUN 9, creatinine 0.6, glucose 144, calcium is 9.9, magnesium 1.6, AST 28, ALT 29, alkaline phosphatase is 78, albumin is 3.7, TSH 1.61. Urine shows nitrites are negative, WBC is at 225. Urine culture, there is no growth. She has a CAT scan of the head done, which shows periventricular white matter ischemic disease, some atrophy, no hemorrhage. CAT scan of the chest is done, shows increase in size of mediastinal/right hilar adenopathy. There are pulmonary nodules. IMPRESSION AND PLAN: Right mediastinal and hilar adenopathy/mass, primary versus metastatic disease, hyponatremia, coronary artery disease, electrolyte imbalance. Case discussed with Dr. Lind in detail, I also spoke to GI nurse practitioner. I think we need tissue biopsy to pursue further, is it a primary lung or metastatic disease. I think we can do ultrasound-guided needle aspiration biopsy. We will speak to Dr. Teran if we can do in the present setting. Keep head elevated at 45 degrees. Case also discussed with Dr. Lind. Thank you and we will follow with you. Concepcion Love MD
--- NOTE | 2017-03-03 11:05 | CP.PCM.PN ---
Subjective - Date & Time of Evaluation Date of Evaluation: 03/03/17 Time of Evaluation: 11:04 - Subjective Subjective: General Surgery Progress note for Dr. Lloyd Patient has no complaints. She denies F/C, bleeding from site of sutures, pain, irritation at site of sutures. sutures removed at bedside yesterday. NAEON. Patient was made aware insurance is not on par with TCU, patient would like to go home instead. Objective - Vital Signs/Intake and Output Vital Signs (last 24 hours): Temp Pulse Resp BP Pulse Ox 98.3 F 97 H 20 161/89 H 96 03/03/17 07:28 03/03/17 07:28 03/03/17 07:28 03/03/17 09:06 03/03/17 07:28 Intake and Output: 03/03/17 03/03/17 06:59 18:59 Intake Total 780 Output Total 400 Balance 380 - Medications Medications: Current Medications Acetaminophen (Tylenol 325mg Tab) 650 mg PO Q4H PRN PRN Reason: Pain, Mild (1-3) Famotidine (Pepcid) [address] [facility] Last Admin: 03/03/17 09:05 Dose: 20 mg Folic Acid (Folic Acid) [address] [facility] Last Admin: 03/03/17 09:06 Dose: 1 mg Magnesium Oxide (Mag-Ox) [address] [facility] Last Admin: 03/03/17 09:05 Dose: 400 mg Metoprolol Succinate (Toprol Xl) [address] [facility] Last Admin: 03/03/17 09:04 Dose: 50 mg Metoprolol Succinate (Toprol Xl) [address] [facility] Last Admin: 03/03/17 09:06 Dose: 25 mg Morphine Sulfate (Morphine) 2 mg IVP Q4H PRN PRN Reason: Pain, severe (8-10) Prednisone (Prednisone Tab) [address] [facility] Last Admin: 03/03/17 09:04 Dose: 10 mg Tolvaptan (Samsca) [address] [facility] Stop: 03/04/17 18:48 Tramadol HCl (Ultram) 50 mg PO TID PRN PRN Reason: Pain, moderate (4-7) Last Admin: 02/28/17 02:06 Dose: 50 mg - Labs Labs: 03/03/17 05:30 03/03/17 05:30 PT 11.7 Seconds (9.9-11.8) 02/26/17 20:15 INR 1.08 (0.93-1.08) 02/26/17 20:15 APTT 34.7 Seconds (23.7-30.8) H 02/26/17 20:15 - Constitutional Appears: Non-toxic, No Acute Distress - Head Exam Additional comments: dry scalp area of suture removal intact, non-draining, no purulence, no erythema - Eye Exam Eye Exam: EOMI, Normal appearance - ENT Exam ENT Exam: Mucous Membranes Moist - Neck Exam Neck Exam: Full ROM, Normal Inspection - Respiratory Exam Respiratory Exam: Clear to Ausculation Bilateral, NORMAL BREATHING PATTERN. absent: Accessory Muscle Use, Respiratory Distress - Cardiovascular Exam Cardiovascular Exam: REGULAR RHYTHM. absent: Bradycardia, Tachycardia - GI/Abdominal Exam GI & Abdominal Exam: Soft. absent: Guarding, Rigid, Tenderness - Extremities Exam Extremities Exam: Full ROM, Normal Inspection. absent: Pedal Edema - Back Exam Back Exam: Full ROM, NORMAL INSPECTION - Neurological Exam Neurological Exam: Alert, Awake, Oriented x3 - Psychiatric Exam Psychiatric exam: Normal Affect, Normal Mood - Skin Skin Exam: Dry, Normal Color, Warm Assessment and Plan - Assessment and Plan (Free Text) Assessment: 77F presents with a fall and had sutures removed. Plan: c/w current medical management c/w pain control discharge/transfer per primary medical team. monitor site of suture removal for induration, drainage, purulence, erythema no further surgical intervention needed at this time d/w Dr. Gabino Oakes, DO PGY1
--- NOTE | 2017-03-03 11:18 | CP.PCM.PN ---
<Valencia Araujo - Last Filed: 03/03/17 11:16> Subjective - Date & Time of Evaluation Date of Evaluation: 03/03/17 Time of Evaluation: 10:05 - Subjective Subjective: S&E at bedside, chart reviewed, no BM for at least 6 days per patient. Tolerating oral intake, No N/V or abdominal pain. No SOB or chest pain. Objective - Vital Signs/Intake and Output Vital Signs (last 24 hours): Temp Pulse Resp BP Pulse Ox 98.3 F 97 H 20 161/89 H 96 03/03/17 07:28 03/03/17 07:28 03/03/17 07:28 03/03/17 09:06 03/03/17 07:28 Intake and Output: 03/03/17 03/03/17 06:59 18:59 Intake Total 780 Output Total 400 Balance 380 - Medications Medications: Current Medications Acetaminophen (Tylenol 325mg Tab) 650 mg PO Q4H PRN PRN Reason: Pain, Mild (1-3) Famotidine (Pepcid) 20 mg PO DAILY [facility] Last Admin: 03/03/17 09:05 Dose: 20 mg Folic Acid (Folic Acid) 1 mg PO DAILY [facility] Last Admin: 03/03/17 09:06 Dose: 1 mg Magnesium Oxide (Mag-Ox) 400 mg PO BID [facility] Last Admin: 03/03/17 09:05 Dose: 400 mg Metoprolol Succinate (Toprol Xl) 50 mg PO BRK [facility] Last Admin: 03/03/17 09:04 Dose: 50 mg Metoprolol Succinate (Toprol Xl) 25 mg PO BRK [facility] Last Admin: 03/03/17 09:06 Dose: 25 mg Morphine Sulfate (Morphine) 2 mg IVP Q4H PRN PRN Reason: Pain, severe (8-10) Polyethylene Glycol (Miralax) 17 gm PO DAILY [facility] Prednisone (Prednisone Tab) 10 mg PO DAILY [facility] Last Admin: 03/03/17 09:04 Dose: 10 mg Tolvaptan (Samsca) 15 mg PO DAILY [facility] Stop: 03/04/17 18:48 Tramadol HCl (Ultram) 50 mg PO TID PRN PRN Reason: Pain, moderate (4-7) Last Admin: 02/28/17 02:06 Dose: 50 mg - Labs Labs: 03/03/17 05:30 03/03/17 05:30 PT 11.7 Seconds (9.9-11.8) 02/26/17 20:15 INR 1.08 (0.93-1.08) 02/26/17 20:15 APTT 34.7 Seconds (23.7-30.8) H 02/26/17 20:15 - Constitutional Appears: No Acute Distress - Head Exam Head Exam: NORMOCEPHALIC - Eye Exam Eye Exam: Normal appearance. absent: Scleral icterus - ENT Exam ENT Exam: Mucous Membranes Moist - Neck Exam Neck Exam: Normal Inspection - Respiratory Exam Respiratory Exam: NORMAL BREATHING PATTERN. absent: Rales, Wheezes, Respiratory Distress - Cardiovascular Exam Cardiovascular Exam: +S1, +S2 - GI/Abdominal Exam GI & Abdominal Exam: Soft, Tenderness (luq on deep palpation), Normal Bowel Sounds. absent: Distended, Guarding, Rebound - Extremities Exam Extremities Exam: Normal Capillary Refill. 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 Teran. <Charla Teran V - Last Filed: 03/03/17 22:16> Objective - Vital Signs/Intake and Output Vital Signs (last 24 hours): Temp Pulse Resp BP Pulse Ox 98 F 104 H 20 170/118 H 93 L 03/03/17 16:12 03/03/17 16:12 03/03/17 16:12 03/03/17 16:12 03/03/17 16:12 Intake and Output: 03/03/17 03/04/17 18:59 06:59 Intake Total 960 640 Balance 960 640 - Medications Medications: Current Medications Acetaminophen (Tylenol 325mg Tab) 650 mg PO Q4H PRN PRN Reason: Pain, Mild (1-3) Famotidine (Pepcid) 20 mg PO DAILY [facility] Last Admin: 03/03/17 09:05 Dose: 20 mg Folic Acid (Folic Acid) 1 mg PO DAILY [facility] Last Admin: 03/03/17 09:06 Dose: 1 mg Magnesium Oxide (Mag-Ox) 400 mg PO BID [facility] Last Admin: 03/03/17 18:36 Dose: 400 mg Metoprolol Succinate (Toprol Xl) 50 mg PO BRK [facility] Last Admin: 03/03/17 09:04 Dose: 50 mg Metoprolol Succinate (Toprol Xl) 25 mg PO BRK [facility] Last Admin: 03/03/17 09:06 Dose: 25 mg Morphine Sulfate (Morphine) 2 mg IVP Q4H PRN PRN Reason: Pain, severe (8-10) Polyethylene Glycol (Miralax) 17 gm PO DAILY [facility] Last Admin: 03/03/17 18:35 Dose: 17 gm Prednisone (Prednisone Tab) 10 mg PO DAILY [facility] Last Admin: 03/03/17 09:04 Dose: 10 mg Tolvaptan (Samsca) 15 mg PO DAILY [facility] Stop: 03/04/17 10:01 Tramadol HCl (Ultram) 50 mg PO TID PRN PRN Reason: Pain, moderate (4-7) Last Admin: 02/28/17 02:06 Dose: 50 mg - Labs Labs: 03/03/17 05:30 03/03/17 05:30 PT 11.7 Seconds (9.9-11.8) 02/26/17 20:15 INR 1.08 (0.93-1.08) 02/26/17 20:15 APTT 34.7 Seconds (23.7-30.8) H 02/26/17 20:15 Attending/Attestation - Attestation I have personally seen and examined this patient.: No I have fully participated in the care of the patient.: Yes I have reviewed all pertinent clinical information, including history, physical exam and plan: Yes Notes (Text): this is a delayed dictation. The CT was reviewed. Will discuss with regarding EUS
--- NOTE | 2017-03-03 14:14 | CP.PCM.PN ---
<Thor Larios - Last Filed: 03/03/17 17:58> Subjective - Date & Time of Evaluation Date of Evaluation: 03/03/17 Time of Evaluation: 09:50 - Subjective Subjective: Neurology Progress Note for Dr. Edwards Service Patient seen and examined at bedside. No acute events reported overnight. Reports slept well overnight. AAOx3 on exam. Denies any acute complaints, hoping to go home today. SW at bedside discussed [facility] after discharge, but patient and patient's friend at bedside report she would prefer to return home and have home nursing. Denies chest pain, dizziness, shortness of breath, focal weakness. Baseline neuropathy present, no acute changes, primarily in distal halves of both feet. Objective - Vital Signs/Intake and Output Vital Signs (last 24 hours): Temp Pulse Resp BP Pulse Ox 98.3 F 97 H 20 161/89 H 96 03/03/17 07:28 03/03/17 07:28 03/03/17 07:28 03/03/17 09:06 03/03/17 07:28 Intake and Output: 03/03/17 03/03/17 06:59 18:59 Intake Total 780 Output Total 400 Balance 380 - Medications Medications: Current Medications Acetaminophen (Tylenol 325mg Tab) 650 mg PO Q4H PRN PRN Reason: Pain, Mild (1-3) Famotidine (Pepcid) 20 mg PO DAILY [facility] Last Admin: 03/03/17 09:05 Dose: 20 mg Folic Acid (Folic Acid) 1 mg PO DAILY [facility] Last Admin: 03/03/17 09:06 Dose: 1 mg Magnesium Oxide (Mag-Ox) 400 mg PO BID [facility] Last Admin: 03/03/17 09:05 Dose: 400 mg Metoprolol Succinate (Toprol Xl) 50 mg PO BRK [facility] Last Admin: 03/03/17 09:04 Dose: 50 mg Metoprolol Succinate (Toprol Xl) 25 mg PO BRK [facility] Last Admin: 03/03/17 09:06 Dose: 25 mg Morphine Sulfate (Morphine) 2 mg IVP Q4H PRN PRN Reason: Pain, severe (8-10) Polyethylene Glycol (Miralax) 17 gm PO DAILY [facility] Prednisone (Prednisone Tab) 10 mg PO DAILY [facility] Last Admin: 03/03/17 09:04 Dose: 10 mg Tolvaptan (Samsca) 15 mg PO DAILY [facility] Stop: 03/04/17 18:48 Tramadol HCl (Ultram) 50 mg PO TID PRN PRN Reason: Pain, moderate (4-7) Last Admin: 02/28/17 02:06 Dose: 50 mg - Labs Labs: 03/03/17 05:30 03/03/17 05:30 PT 11.7 Seconds (9.9-11.8) 02/26/17 20:15 INR 1.08 (0.93-1.08) 02/26/17 20:15 APTT 34.7 Seconds (23.7-30.8) H 02/26/17 20:15 - Additional Findings Additional findings: - Constitutional Appears: Non-toxic, No Acute Distress - Head Exam Head Exam: ATRAUMATIC. absent: NORMOCEPHALIC Healing biopsy site Diffuse patchy white rash along scalp, notable under hair - Eye Exam Eye Exam: EOMI, Normal appearance. absent: Conjunctival injection, Scleral icterus Pupil Exam: absent: Irregular, Unequal - ENT Exam ENT Exam: Mucous Membranes Moist. absent: Mucous Membranes Dry - Neck Exam Neck exam: Positive for: Full Rom, Normal Inspection - Respiratory Exam Respiratory Exam: Clear to Auscultation Bilateral, NORMAL BREATHING PATTERN. absent: Accessory Muscle Use, Chest Wall Tenderness, Decreased Breath Sounds, Rales, Rhonchi, Wheezes - Cardiovascular Exam Cardiovascular Exam: REGULAR RHYTHM, RRR, +S1, +S2. absent: Bradycardia, Tachycardia, Irregular Rhythm, JVD, +S4 - GI/Abdominal Exam GI & Abdominal Exam: Normal Bowel Sounds, Soft. absent: Distended, Firm, Guarding, Rigid, Tenderness - Extremities Exam Extremities exam: Positive for: normal capillary refill, normal inspection, pedal pulses present. 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 Neurology was consulted for mental status changes. Her mental status changes are likely 2/2 too-rapidly corrected sodium and sundowning 2/2 hospital-associated delirium. Head CT was negative for acute changes; ordered to assess for pontine demyelination due to her over-corrected sodium. No further increases in sodium today. May also be an element of sundowning, as her mental status during the daytime is AAOx3 with appropriate and logical thought processes. Plan: 1) Head CT negative for acute changes 2) Delirium precautions (frequent daytime reorientations, avoid nighttime interruptions) 3) Avoid overly sedating medications 4) Na replacement as per primary, avoid further aggressive Na increases (goal is 10-12 in 24 hours, 18 in 48 hours); stable sodium today (138, was 140) Discussed and reviewed with attending, Dr. Edwards. <Asher Edwards - Last Filed: 03/03/17 21:18> Objective - Vital Signs/Intake and Output Vital Signs (last 24 hours): Temp Pulse Resp BP Pulse Ox 98 F 104 H 20 170/118 H 93 L 03/03/17 16:12 03/03/17 16:12 03/03/17 16:12 03/03/17 16:12 03/03/17 16:12 Intake and Output: 03/03/17 03/04/17 18:59 06:59 Intake Total 960 640 Balance 960 640 - Medications Medications: Current Medications Acetaminophen (Tylenol 325mg Tab) 650 mg PO Q4H PRN PRN Reason: Pain, Mild (1-3) Famotidine (Pepcid) 20 mg PO DAILY [facility] Last Admin: 03/03/17 09:05 Dose: 20 mg Folic Acid (Folic Acid) 1 mg PO DAILY [facility] Last Admin: 03/03/17 09:06 Dose: 1 mg Magnesium Sulfate 2 gm/ Sodium (Chloride) 104 mls @ 102 mls/hr IV ONCE ONE Stop: 03/03/17 21:24 Magnesium Oxide (Mag-Ox) 400 mg PO BID [facility] Last Admin: 03/03/17 18:36 Dose: 400 mg Metoprolol Succinate (Toprol Xl) 50 mg PO BRK [facility] Last Admin: 09/19/17 09:04 Dose: 50 mg Metoprolol Succinate (Toprol Xl) 25 mg PO BRK [facility] Last Admin: 03/03/17 09:06 Dose: 25 mg Morphine Sulfate (Morphine) 2 mg IVP Q4H PRN PRN Reason: Pain, severe (8-10) Polyethylene Glycol (Miralax) 17 gm PO DAILY [facility] Last Admin: 03/03/17 18:35 Dose: 17 gm Prednisone (Prednisone Tab) 10 mg PO DAILY [facility] Last Admin: 03/03/17 09:04 Dose: 10 mg Tolvaptan (Samsca) 15 mg PO DAILY [facility] Stop: 03/04/17 10:01 Tramadol HCl (Ultram) 50 mg PO TID PRN PRN Reason: Pain, moderate (4-7) Last Admin: 02/28/17 02:06 Dose: 50 mg - Labs Labs: 03/03/17 05:30 03/03/17 05:30 PT 11.7 Seconds (9.9-11.8) 02/26/17 20:15 INR 1.08 (0.93-1.08) 02/26/17 20:15 APTT 34.7 Seconds (23.7-30.8) H 02/26/17 20:15 Attending/Attestation - Attestation I have personally seen and examined this patient.: Yes I have fully participated in the care of the patient.: Yes I have reviewed all pertinent clinical information, including history, physical exam and plan: Yes
[2017-03-03] MEDS ORDERED: Tolvaptan 15 MG TAB PO STA (16:09)
[2017-03-03] MEDS: POLYETHYLENE GLYCOL 3350 17 GM/Dose PACKET PO SCH (18:35)
[2017-03-03] MEDS ORDERED: Magnesium Sulfate 2 GM in Sodium Chloride 0.9% 100 ML IV ONE (20:23)
--- NOTE | 2017-03-04 00:25 | PN ---
DATE: 03/03/2017 SUBJECTIVE: The patient has no complaints of any chest pain, no shortness of breath, no headache. PHYSICAL EXAMINATION VITAL SIGNS: Temperature is 98, pulse of 104, blood pressure 170/118 and respiration 18. GENERAL: The patient is lying in bed, flat, comfortable. HEENT: No oral lesion. Anicteric sclerae. Moist mucosa. NECK: No JVD, adenopathy, or thyromegaly. CARDIOVASCULAR: S1 and S2, regular. No murmurs, rubs, or gallops. LUNGS: Clear to auscultation bilaterally. No wheeze, rales, or rhonchi. ABDOMEN: Bowel sounds are positive, soft, nontender and nondistended. EXTREMITIES: No cyanosis, clubbing or edema. LABS: White count of 4.6 and hemoglobin 10.0. Creatinine 0.6. ASSESSMENT: 1. Fall. 2. Hyponatremia, improved. 3. Renal carcinoma with right-sided nephrectomy with metastasis to the lung. 4. Rheumatoid arthritis. 5. Degenerative joint disease. 6. Hypertension. 7. Coronary artery disease with stent. 8. Mediastinal adenopathy. 9. Delirium, resolved. 10. Ascending aortic aneurysm, 5.2 cm, stable. 11. Nephrolithiasis in the left kidney. 12. Hypomagnesemia, improved. 13. Iron deficiency anemia. PLAN: The patient is going to the evaluation by endoscopic ultrasound, Dr. Teran has been consulted. The patient may need biopsy to look at the lesion in the lungs closer. The patient may have finally lung disease versus metastatic disease. The patient's hyponatremia is improved. The patient had magnesium replacement, magnesium remains low, we will replace the patient's magnesium. We will await for the input from gastroenterology regarding endoscopic ultrasound and possible biopsy. Collins Mcpherson MD
--- NOTE | 2017-03-04 02:32 | PN ---
PULMONARY PROGRESS NOTE DATE: 03/03/2017 REFERRING PHYSICIAN: Luis Zafar MD SUBJECTIVE: She is out of bed to chair. Night was unremarkable. Feels okay. No headache. No rhinitis. No nausea, no vomiting, no diarrhea. No leg pain or leg swelling. PHYSICAL EXAMINATION GENERAL: In no acute distress. VITAL SIGNS: Temperature is 98, heart rate 104, respiratory rate is 20, blood pressure 170/118 and pulse ox 93% on room air. HEENT: Moist mucous membrane. Crowded airway. NECK: Supple. No JVD. LUNGS: Has a fair airflow with few rhonchi. HEART: S1 and S2. ABDOMEN: Soft and nontender. No organomegaly. EXTREMITIES: There is no edema. NEUROLOGIC: Awake and alert, follow simple command. MEDICATIONS: She is on folic acid 1 mg daily, magnesium oxide 400 mg twice a day, MiraLax 17 g daily, morphine 2 mg q. 4 hours p.r.n., Pepcid 20 mg daily, prednisone 10 mg daily, Samsca 50 mg daily, Toprol XL 75 mg daily, Tylenol p.r.n. basis, Ultram 50 mg 3 times a day p.r.n. LABORATORY DATA: Shows hemoglobin 10.0, hematocrit 29.6, WBC 4.6 and platelet is 218. Sodium 138, potassium 3.9, chloride 100, bicarbonate 30, BUN 11, creatinine 0.6, glucose 92, calcium 9.5, phosphorus 5.1, magnesium 1.5, AST 27, ALT 38, alkaline phosphatase 62 and albumin 3.2. IMPRESSION AND PLAN: Mediastinal and hilar adenopathy, hyponatremia, coronary artery disease, history of nephrectomy, renal cell carcinoma. The patient is scheduled for endoscopic ultrasound on . We will add Norvasc 5 mg daily. Gastric prophylaxis, sequential compressive devices to lower extremities. Thank you and we will follow with you. Concepcion Love MD
[2017-03-04 06:59] LABS: MEAN CELL VOLUME 98.7 fl (80.0-105.0); MEAN CORPUSCULAR HEMOGLOBIN 32.8 pg (25.0-35.0); MEAN CORPUSCULAR HGB CONC 33.2 g/dl (31.0-37.0); RED CELL DISTRIBUTION WIDTH 13.5 % (11.5-14.5); WHITE BLOOD COUNT 4.7 10^3/ul (4.5-11.0)
[2017-03-04 07:06] LABS: ALB/GLOB RATIO 1.3 (1.1-1.8); ALKALINE PHOSPHATASE 62 U/L (38-126); ALT/SGPT 37 U/L (7-56); AST/SGOT 29 U/L (14-36); BILIRUBIN,TOTAL 0.4 mg/dL (0.2-1.3); BLOOD UREA NITROGEN 12 mg/dL (7-21); CALCIUM 9.6 mg/dL (8.4-10.5); CARBON DIOXIDE 29 mmol/L (21-33); CHLORIDE 101 mmol/L (98-107); GFR AFRICAN-AMERICAN > 60; GLUCOSE,RANDOM 96 mg/dL (70-110); MAGNESIUM 1.7 mg/dL (1.7-2.2); POTASSIUM 3.7 mmol/L (3.6-5.0); SODIUM 140 mmol/L (132-148); TOTAL PROTEIN 5.8 g/dL (5.8-8.3)
--- NOTE | 2017-03-04 08:13 | PN ---
DATE: SUBJECTIVE: The patient has no complaints of any chest pain. No shortness of breath. No headache. PHYSICAL EXAMINATION: VITAL SIGNS: Temperature is 97.6, pulse of 80, blood pressure 160/90, and respirations 20. GENERAL: The patient is lying in bed, flat, comfortable. HEENT: No oral lesion. Anicteric sclerae. Moist mucosa. NECK: No JVD, adenopathy, or thyromegaly. CARDIOVASCULAR: S1 and S2, regular. No murmurs, rubs, or gallops. LUNGS: Clear to auscultation bilaterally. No wheeze, rales, or rhonchi. ABDOMEN: Bowel sounds are positive, soft, nontender and nondistended. EXTREMITIES: No cyanosis, clubbing or edema. LABORATORY DATA: White count of 4.6, hemoglobin of 10. Creatinine 0.6. Labs from this morning are pending. ASSESSMENT: 1. Fall. 2. Hyponatremia, resolved. 3. Renal cell carcinoma with right-sided nephrectomy with metastasis to the lungs. 4. Rheumatoid arthritis. 5. Degenerative joint disease. 6. Hypertension. 7. Coronary artery disease with stent. 8. Mediastinal adenopathy. 9. Delirium, resolved. 10. Ascending aortic aneurysm, 5.3 cm stable. 11. Nephrolithiasis in the left kidney. 12. Hypomagnesemia, improved. 13. Iron deficiency anemia. PLAN: The patient is currently comfortable. She has hilar adenopathy. The patient is scheduled for an endoscopic ultrasound tomorrow. The patient's blood pressure has been running significantly high. The patient was started on Norvasc yesterday. I will increase the patient's Norvasc to 10 mg. Collins Mcpherson MD
[2017-03-04] MEDS: Metoprolol Succinate 25 mg XL Tab PO SCH (08:43)
[2017-03-04] MEDS: Metoprolol Succinate 50 mg XL Tab PO SCH (08:44)
[2017-03-04] MEDS ORDERED: Tolvaptan 15 MG TAB PO SCH (10:00)
[2017-03-04] MEDS: Magnesium Oxide 400 mg Tab UD PO SCH ×2 (10:08→17:18)
[2017-03-04] MEDS: POLYETHYLENE GLYCOL 3350 17 GM/Dose PACKET PO SCH (10:11)
--- NOTE | 2017-03-04 12:22 | CP.PCM.PN ---
<Valencia Araujo - Last Filed: 03/04/17 12:22> Subjective - Date & Time of Evaluation Date of Evaluation: 03/04/17 Time of Evaluation: 10:25 - Subjective Subjective: Seen and examined at the bedside earlier today, patient had small bowel movement yesterday, no reports of bleeding, nausea, vomiting or abdominal pain. Objective - Vital Signs/Intake and Output Vital Signs (last 24 hours): Temp Pulse Resp BP Pulse Ox 98 F 89 20 140/88 96 03/04/17 08:09 03/04/17 08:44 03/04/17 08:09 03/04/17 10:08 03/04/17 08:09 Intake and Output: 03/04/17 03/04/17 06:59 18:59 Intake Total 880 Balance 880 - Medications Medications: Current Medications Acetaminophen (Tylenol 325mg Tab) 650 mg PO Q4H PRN PRN Reason: Pain, Mild (1-3) Amlodipine Besylate (Norvasc) 10 mg PO DAILY [facility] Last Admin: 03/04/17 10:08 Dose: 10 mg Famotidine (Pepcid) 20 mg PO DAILY [facility] Last Admin: 03/04/17 10:09 Dose: 20 mg Folic Acid (Folic Acid) 1 mg PO DAILY [facility] Last Admin: 03/04/17 10:08 Dose: 1 mg Magnesium Oxide (Mag-Ox) 400 mg PO BID [facility] Last Admin: 03/04/17 10:08 Dose: 400 mg Metoprolol Succinate (Toprol Xl) 50 mg PO BRK [facility] Last Admin: 03/04/17 08:44 Dose: 50 mg Metoprolol Succinate (Toprol Xl) 25 mg PO BRK [facility] Last Admin: 03/04/17 08:43 Dose: 25 mg Polyethylene Glycol (Miralax) 17 gm PO DAILY [facility] Last Admin: 03/04/17 10:11 Dose: 17 gm Prednisone (Prednisone Tab) 10 mg PO DAILY [facility] Last Admin: 03/04/17 10:09 Dose: 10 mg Tramadol HCl (Ultram) 50 mg PO TID PRN PRN Reason: Pain, moderate (4-7) Last Admin: 02/28/17 02:06 Dose: 50 mg - Labs Labs: 03/04/17 06:30 03/04/17 06:30 PT 11.7 Seconds (9.9-11.8) 02/26/17 20:15 INR 1.08 (0.93-1.08) 02/26/17 20:15 APTT 34.7 Seconds (23.7-30.8) H 02/26/17 20:15 - Constitutional Appears: No Acute Distress - Head Exam Head Exam: NORMOCEPHALIC - Eye Exam Eye Exam: Normal appearance. absent: Scleral icterus - ENT Exam ENT Exam: Mucous Membranes Moist - Neck Exam Neck Exam: Normal Inspection - Respiratory Exam Respiratory Exam: NORMAL BREATHING PATTERN. absent: Respiratory Distress - Cardiovascular Exam Cardiovascular Exam: +S1, +S2 - GI/Abdominal Exam GI & Abdominal Exam: Soft, Normal Bowel Sounds. absent: Guarding, Tenderness, Organomegaly, Rebound - Extremities Exam Extremities Exam: Normal Capillary Refill. 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 Teran. <Charla Teran V - Last Filed: 03/04/17 23:42> Objective - Vital Signs/Intake and Output Vital Signs (last 24 hours): Temp Pulse Resp BP Pulse Ox 98 F 89 20 140/88 96 03/04/17 08:09 03/04/17 08:44 03/04/17 08:09 03/04/17 10:08 03/04/17 08:09 Intake and Output: 03/04/17 03/05/17 18:59 06:59 Intake Total 540 Balance 540 - Medications Medications: Current Medications Acetaminophen (Tylenol 325mg Tab) 650 mg PO Q4H PRN PRN Reason: Pain, Mild (1-3) Amlodipine Besylate (Norvasc) 10 mg PO DAILY [facility] Last Admin: 03/04/17 10:08 Dose: 10 mg Famotidine (Pepcid) 20 mg PO DAILY [facility] Last Admin: 03/04/17 10:09 Dose: 20 mg Folic Acid (Folic Acid) 1 mg PO DAILY [facility] Last Admin: 03/04/17 10:08 Dose: 1 mg Magnesium Oxide (Mag-Ox) 400 mg PO BID [facility] Last Admin: 03/04/17 17:18 Dose: 400 mg Metoprolol Succinate (Toprol Xl) 50 mg PO BRK [facility] Last Admin: 03/04/17 08:44 Dose: 50 mg Metoprolol Succinate (Toprol Xl) 25 mg PO BRK [facility] Last Admin: 03/04/17 08:43 Dose: 25 mg Polyethylene Glycol (Miralax) 17 gm PO DAILY [facility] Last Admin: 03/04/17 10:11 Dose: 17 gm Prednisone (Prednisone Tab) 10 mg PO DAILY [facility] Last Admin: 03/04/17 10:09 Dose: 10 mg Tramadol HCl (Ultram) 50 mg PO TID PRN PRN Reason: Pain, moderate (4-7) Last Admin: 02/28/17 02:06 Dose: 50 mg - Labs Labs: 03/04/17 06:30 03/04/17 06:30 PT 11.7 Seconds (9.9-11.8) 02/26/17 20:15 INR 1.08 (0.93-1.08) 02/26/17 20:15 APTT 34.7 Seconds (23.7-30.8) H 02/26/17 20:15 Attending/Attestation - Attestation Notes (Text): This is an addendum to GI progress report dictated by Valencia Araujo APN.The patient was seen and examined earlier. Medical records, lab studies, imagings were reviewed. Last 24 hours events reviewed. Agreed with the above treatment plan as outlined in Valencia Araujo APN's notes the with the addition of the following on examination abdomen soft no tenderness Discussed with Dr. briceno Scheduled for EUS and FNA off mediastinal adenopathy 03/04/17 23:41
--- NOTE | 2017-03-04 13:00 | PN ---
DATE: 03/04/2017 SUBJECTIVE: The patient is seen sitting in a chair on telemetry. She is anxious at home. She is scheduled for an endoscopic ultrasound in the morning. She has had no lightheadedness. She denies any chest pain. MEDICATIONS: Her current medications include folic acid, magnesium oxide, MiraLax, Norvasc 10 mg daily, Pepcid, prednisone 10 mg daily, Toprol-XL 75 mg daily and Ultram. PHYSICAL EXAMINATION: GENERAL: She is an elderly woman, appears comfortable at the present time. VITAL SIGNS: Her blood pressure is 140/80 with a pulse of 86, respirations are 16. She is afebrile. HEENT: No JVD. CHEST: Few scattered rhonchi heard. HEART: PMI displaced laterally with a systolic murmur in the left sternal border. ABDOMEN: Soft and nontender with normoactive bowel sounds. EXTREMITIES: No edema. DIAGNOSTIC DATA: Sodium is 140, potassium 3.7, BUN and creatinine 12 and 0.6. White count is 4.7, hemoglobin and hematocrit 10.3 and 31.0 with a platelet count of 238,000. IMPRESSION: 1. Recent fall, appears to have not related to syncope. 2. Known coronary artery disease, status post remote percutaneous coronary intervention. 3. Renal cell carcinoma, status post right nephrectomy with evidence of pulmonary metastases. 4. Thoracic aortic aneurysm being managed conservatively. 5. Hyponatremia, currently resolved. RECOMMENDATIONS: Her current cardiac medications will continue. From a cardiac standpoint, she is stable to undergo endoscopic ultrasound tomorrow as planned. No specific precautions appear necessary. If there is no contraindication, resumption of low-dose aspirin therapy given her coronary disease would be reasonable. We will be happy to see her as needed. Jonel Calles MD
--- NOTE | 2017-03-04 20:26 | PN ---
DATE: 03/04/2017 PULMONARY PROGRESS NOTE REFERRING PHYSICIAN: Luis Zafar M.D. SUBJECTIVE: She is out of bed to chair. Night was unremarkable. No headache. No rhinitis. No nausea, no vomiting, no diarrhea. No leg swelling. PHYSICAL EXAMINATION GENERAL: In no acute distress. VITAL SIGNS: Temperature 98, heart rate 89, respiratory rate 20, blood pressure 140/88, and pulse ox 96% on room air. HEENT: Moist mucous membrane. Crowded airway. NECK: Supple. No JVD. LUNGS: Has a fair airflow with few rhonchi. HEART: S1 and S2. ABDOMEN: Soft and nontender. No organomegaly. EXTREMITIES: Some pedal edema. NEUROLOGIC: Awake and alert. Follows simple command. MEDICATIONS: She is on folic acid 1 mg daily, magnesium oxide 400 mg twice a day, MiraLax 17 g daily, Norvasc 10 mg daily, Pepcid 20 mg daily, prednisone 10 mg daily, Toprol-XL 75 mg daily, Tylenol p.r.n. basis, Ultram 50 mg three times a day p.r.n. LABORATORY DATA: Shows hemoglobin 10.6, hematocrit 31.0, WBC of 4.7, platelet is 208. Sodium 140, potassium 3.7, chloride 101, bicarbonate 29, BUN 12, creatinine 0.6, glucose is 96, calcium is 9.6, magnesium 1.7, AST 29, ALT 37, alkaline phosphatase is 62, and albumin is 3.3. IMPRESSION AND PLAN: Mediastinal hilar adenopathy, hypernatremia, coronary artery disease, history of nephrectomy, history of renal cell carcinoma. Scheduled for EUS tomorrow for possible biopsy, gastric prophylaxis, SCD to lower extremities, fall precaution. Norvasc added yesterday to have a better control in the blood pressure. We will follow with you. Concepcion Love MD
--- NOTE | 2017-03-04 21:01 | PN ---
DATE: 03/04/2017 This is the patient's hospital visit on the medical floor. For Dr. Lind. SUBJECTIVE: The patient is a 77-year-old female, sees Dr. 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 She is now sitting up in a chair reporting that she feels better as her electrolytes have improved significantly as per Dr. Mcpherson's recommendations for treatment. She also reports her appetite is now better too. OBJECTIVE AND PHYSICAL EXAMINATION VITAL SIGNS: Temperature 98, pulse 89, respirations 20, blood pressure 140/88, pulse ox 96%. HEENT: Unremarkable except for suture to the top of her scalp where she had a biopsy. NECK: Supple. HEART: Regular rate. LUNGS: Clear. ABDOMEN: Soft, nontender. EXTREMITIES: No edema. SKIN: Warm and dry. NEUROLOGIC: She is more alert this visit once the electrolytes have corrected. LABORATORY DATA: The patient's labs were done. White blood cell count of 4.7; hemoglobin 10.3; hematocrit of 31.0; platelet count of 208,000 with chem metabolic panel completely within normal range with a sodium of 140, chloride of 101. ASSESSMENT: Severe hyponatremia with mental status change, hilar mass, history of renal cell carcinoma with metastasis to the lung, scalp lesion biopsy pending, status post fall, rheumatoid arthritis, degenerative joint disease, hypertension, aortic aneurysm. PLAN: After conversation with Dr. Lind is to have an endoscopic ultrasound with biopsy for hilar adenopathy with her medicines adjusted as per Dr. Mcpherson for her hypertensive problem with medicines to continue with Samsca, been given by Dr. Mcpherson with good effect. We will monitor clinically and with labs. Prognosis for this patient is guarded. Luis Zafar MD
[2017-03-05] MEDS: Metoprolol Succinate 50 mg XL Tab PO SCH (07:16)
[2017-03-05] MEDS: Metoprolol Succinate 25 mg XL Tab PO SCH (07:17)
[2017-03-05 07:20] LABS: BASO # 0.02 K/mm3 (0.0-2.0); BASO % 0.4 % (0.0-3.0); EOS # 0.2 (0.0-0.7); EOS % 3.2 % (1.5-5.0); GRAN # 3.65 (1.4-6.5); GRAN % 68.2 % (50.0-68.0); HEMATOCRIT 34.1 % (36.0-48.0); LYMPH # 0.9 (1.2-3.4); LYMPH % 15.9 % (22.0-35.0); MEAN CELL VOLUME 99.4 fl (80.0-105.0); MEAN CORPUSCULAR HEMOGLOBIN 33.2 pg (25.0-35.0); MEAN CORPUSCULAR HGB CONC 33.4 g/dl (31.0-37.0); MEAN PLATELET VOLUME 9.3 fl (7.0-11.0); MONO # 0.7 (0.1-0.6); MONO % 12.3 % (1.0-6.0); RED CELL DISTRIBUTION WIDTH 13.5 % (11.5-14.5); WHITE BLOOD COUNT 5.4 10^3/ul (4.5-11.0)
[2017-03-05 07:30] LABS: INR 1.15 (0.93-1.08); PARTIAL THROMBOPLASTIN TIME 28.2 Seconds (23.7-30.8)
[2017-03-05 07:39] LABS: ALB/GLOB RATIO 1.5 (1.1-1.8); ALKALINE PHOSPHATASE 69 U/L (38-126); ALT/SGPT 37 U/L (7-56); AST/SGOT 28 U/L (14-36); BILIRUBIN,TOTAL 0.5 mg/dL (0.2-1.3); BLOOD UREA NITROGEN 12 mg/dL (7-21); CALCIUM 9.9 mg/dL (8.4-10.5); CARBON DIOXIDE 28 mmol/L (21-33); CHLORIDE 102 mmol/L (98-107); GFR AFRICAN-AMERICAN > 60; GLUCOSE,RANDOM 113 mg/dL (70-110); POTASSIUM 3.9 mmol/L (3.6-5.0); SODIUM 142 mmol/L (132-148); TOTAL PROTEIN 6.4 g/dL (5.8-8.3)
[2017-03-05] MEDS ORDERED: Midazolam 2 MG/2 ML VIAL ONE (08:30)
[2017-03-05] MEDS ORDERED: Propofol 10 mg/ml Inj (20 ML) ONE ×2 (08:30→10:07)
--- NOTE | 2017-03-05 08:32 | PN ---
FOLLOWUP NOTE DATE: 03/05/2017 HISTORY OF PRESENT ILLNESS: Ms. Jason is a 77-year-old female with stage IV renal cancer. She was admitted with hyponatremia, shortness of breath. Hyponatremia is resolved, sodium is 140. She has mediastinal adenopathy. Endoscopic ultrasound scheduled for today. REVIEW OF SYSTEM: As per HPI. Rest of 12-point review of systems reviewed and negative. PHYSICAL EXAMINATION GENERAL: Comfortable in bed, in no acute distress. VITAL SIGNS: Temperature 98.7, heart rate 80 per minutes, blood pressure 150/70, respiratory rate 18 per minute. HEENT: Normal. Pallor positive. CHEST: Air entry present and equal and bilaterally. No added sounds. CARDIOVASCULAR: S1 and S2 normal. No murmur. No gallop. ABDOMEN: Soft, nontender. No hepatosplenomegaly. EXTREMITIES: No edema. No clubbing. No cyanosis. LABORATORY DATA: White count 5.4, hemoglobin 11.4, hematocrit 34.1, platelet count 224. Sodium 140, potassium 3.7, creatinine 0.6. MEDICATIONS: Tylenol 650 q.4 hours p.r.n., Norvasc 10 mg daily, Pepcid 20 mg daily, folic acid 1 mg daily, metoprolol 25 mg in the evening, MiraLax 17 g daily, prednisone 10 mg daily, Ultram p.r.n. for pain. ASSESSMENT AND PLAN: 1. Status post fall. 2. Renal cancer, right-sided nephrectomy, metastatic to the lung. 3. Rheumatoid arthritis. 4. Degenerative joint disease. 5. Mediastinal adenopathy. 6. Iron deficiency anemia. She is scheduled for endoscopic ultrasound today for mediastinal adenopathy. Hyponatremia resolved. Blood pressure controlled, on Norvasc. We will continue beta-олег, continue prednisone. Shi Bender MD
[2017-03-05] MEDS ORDERED: Sodium Chloride 0.9% 1,000 ML IV SCH (10:30)
[2017-03-05] MEDS: POLYETHYLENE GLYCOL 3350 17 GM/Dose PACKET PO SCH (11:32)
[2017-03-05] MEDS: Magnesium Oxide 400 mg Tab UD PO SCH ×2 (11:32→17:33)
[2017-03-05 16:56] VITALS: BP 126/73; PULSE 87; RESP 20; TEMP 97.9; O2SAT 96
--- NOTE | 2017-03-05 22:43 | PN ---
DATE: 03/05/2017 PULMONARY PROGRESS NOTE REFERRING PHYSICIAN: Collins Mcpherson MD SUBJECTIVE: She is out of bed to chair. EUS was done today with biopsy. She feels okay. No cough. No hematemesis. No nausea. No vomiting. No diarrhea. No leg pain. No leg swelling. OBJECTIVE: GENERAL: In no acute distress. VITAL SIGNS: Temperature 98, heart rate is 87, respiratory rate is 20, blood pressure 126/73, and pulse oximetry 99% on 3 liters nasal cannula. HEENT: Moist mucous membranes. No oral thrush. NECK: Supple. No JVD. LUNGS: Have has a fair airflow with rhonchi. HEART: S1 and S2. ABDOMEN: Soft, nontender. No organomegaly. EXTREMITIES: There is no edema. NEUROLOGIC: Awake, alert, follows simple commands. MEDICATIONS: Reviewed. No new changes. Medication reported. LABORATORY DATA: Shows hemoglobin 11.4, hematocrit 34.1, WBC of 5.4, platelet is 224. INR 1.15. PTT 28. Sodium 142, potassium 3.9, chloride 102, bicarbonate 28, BUN 12, creatinine 0.7. Glucose is 113, calcium is 9.9, AST 28, ALT 37, alkaline phosphate is 69. IMPRESSION AND PLAN: Mediastinal and hilar adenopathy, coronary artery disease, history of nephrectomy, history of renal cell carcinoma, status post EUS biopsy. Pulmonary point, doing okay. The patient could be discharged home if cleared by gastroenterology. Outpatient Dr. Lind's followup. We will follow with you. Concepcion Love MD
--- NOTE | 2017-03-06 17:50 | PN ---
LOCATION: The patient is in room #563, bed #1. SUBJECTIVE: The patient is out of bed and chair. The patient had an endoscopic ultrasound done today. I spoke with Dr. Teran and several passes of the mediastinal nodes were taken. Frozen section revealed malignant cells, consistent with our primary diagnosis of cancer, presenting with SIADH, mediastinal mass and the lung nodules. Question is whether we are dealing with the primary lung or is this metastatic renal cell that is coming back with a prior history of having had stage IV renal cell carcinoma that had been into complete remission several years ago. The patient is feeling better. She is much more cohesive in her thoughts and able to communicate with me all the things that have been going on with her since her admission. Denies any history of cough, hematemesis, nausea, vomiting, diarrhea. No leg pain. No leg swelling. All the arthralgias that she was having have improved since being in the hospital. OBJECTIVE: GENERAL: The patient is in no acute distress. VITAL SIGNS: Stable. T-max is 98.4, heart rate is 87, respirations 20 per minute, blood pressure 126/73 and O2 sat is 99% on 3 L of oxygen. HEENT: Head is normocephalic and atraumatic. Conjunctivae are pale. Scleras are anicteric. Examination of the oropharynx revealed no oropharyngeal lesions. Ulcerations are not seen. There is no evidence of fungal infections at this time. The patient has a lots of hair on the vertex of her scalp, related to tinea capitis that was recently diagnosed by Dr. Melendez when she had an incisional biopsy. The patient has had similar tinea capitis at other sites, the patient had used topical cream. Unclear at this time what the source or cause for the tinea could be though the patient has been on methotrexate for her refractory arthritis. NECK: Supple. There is no adenopathy. No jugular venous distention noted. LUNGS: Clear to percussion and auscultation. HEART: Reveals PMI to be in the fifth intercostal space inside the midclavicular line. S1 and S2 are normal. No gallop or murmur is heard. ABDOMEN: Soft and nontender. Bowel sounds are present. EXTREMITIES: Reveal no cyanosis, clubbing or edema. NEUROLOGIC: Higher functions are normal. No focal deficits are noted. MEDICATIONS: The patient's medications reviewed and no new changes are noted. The patient has received 2 doses of Tolvaptan and her sodium has normalized. LABORATORY DATA: Today's lab data revealed a hemoglobin of 11.4, hematocrit 34, platelet count of 224 with white count of 5.4. INR is normal. Sodium is 142, potassium is 3.9, chloride is 102, bicarbonate is 28, BUN 12, creatinine 0.7, glucose is 113, calcium is 9.9, AST is 28, ALT is 37, alkaline phosphate is 69. ASSESSMENT NOTES: The patient has mediastinal and hilar adenopathy with FNA showing malignancy. We will have to wait for further details based on immunohistochemistry to determine whether it is a primary of the lung or metastatic renal cell at this point in time. Coronary artery disease, history of nephrectomy on the right side for renal cell carcinoma. PLAN: I had detailed discussion with the patient, at this point spoke to her friends. We will wait for the final pathology to come. We are going to present the case in the tumor board next Thursday. If it is primary lung, treatment approaches will be different with metastatic recurrent renal cell treatments would be different. The patient did respond dramatically to treatment with interferon to metastatic renal cell and she was on interferon for a long time before we stopped it. Told the patient we may have to change our treatment plan depending on what we can do for her at this time. She has multiple other comorbid problems. She has an aneurysm of the ascending aorta. She has coronary artery disease and significant peripheral neuropathy; we have to put all these into consideration before choice or selection of drugs at this time. Explained of these in great detail to the patient and her family. The patient will come to see me next week, on Thursday. Tania Lind MD
== END 2017-03-05 21:13 | disposition home or self-care (01) | DRG 987 ==
LOC: ED 19:40 → ERH 22:11 → 5RNO 02-27 → OBSVTOIN 02-27 15:39
PROVIDERS: ADMIT Internal Medicine Nephrology; ATTEND Internal Medicine Nephrology
PROC: 079 Lymphatic and Hemic Systems, Drainage (ICD-10-PCS; 2017-03-05)
PROC: 0DJ08ZZ Inspection of Upper Intestinal Tract, Via Natural or Artificial Opening Endoscopic (ICD-10-PCS; principal; 2017-03-05 08:00)
DX: E22.2 Syndrome of inappropriate secretion of antidiuretic hormone (principal); I63.9 Cerebral infarction, unspecified; K86.2 Cyst of pancreas; E83.42 Hypomagnesemia; C78.00 Secondary malignant neoplasm of unspecified lung; C77.1 Secondary and unspecified malignant neoplasm of intrathoracic lymph nodes; I71.2 Thoracic aortic aneurysm, without rupture; G62.9 Polyneuropathy, unspecified; I71.4 Abdominal aortic aneurysm, without rupture; M06.9 Rheumatoid arthritis, unspecified; I25.10 Atherosclerotic heart disease of native coronary artery without angina pectoris; Z85.528 Personal history of other malignant neoplasm of kidney; Z90.5 Acquired absence of kidney; D50.9 Iron deficiency anemia, unspecified; E83.119 Hemochromatosis, unspecified; F41.9 Anxiety disorder, unspecified; I10 Essential (primary) hypertension; I73.9 Peripheral vascular disease, unspecified; K21.9 Gastro-esophageal reflux disease without esophagitis; K59.00 Constipation, unspecified; M15.9 Polyosteoarthritis, unspecified; M35.3 Polymyalgia rheumatica; M47.816 Spondylosis without myelopathy or radiculopathy, lumbar region; M81.0 Age-related osteoporosis without current pathological fracture; N20.0 Calculus of kidney; W01.0XXA Fall on same level from slipping, tripping and stumbling without subsequent striking against object, initial encounter; Y92.009 Unspecified place in unspecified non-institutional (private) residence as the place of occurrence of the external cause; Z87.442 Personal history of urinary calculi; Z87.891 Personal history of nicotine dependence; Z95.5 Presence of coronary angioplasty implant and graft; M54.89 Other dorsalgia; M25.552 Pain in left hip; R40.2412 Glasgow coma scale score 13-15, at arrival to emergency department; I51.7 Cardiomegaly; Z90.49 Acquired absence of other specified parts of digestive tract; R59.0 Localized enlarged lymph nodes; R91.8 Other nonspecific abnormal finding of lung field; J02.9 Acute pharyngitis, unspecified; R26.2 Difficulty in walking, not elsewhere classified; R53.81 Other malaise; I45.10 Unspecified right bundle-branch block

== ENCOUNTER 2017-03-10 13:34 | Inpatient (IN) | payer MEDICARE ==
--- NOTE | 2017-03-10 14:27 | RAD ---
HISTORY: hyponatremia COMPARISON: 02/26/2017 FINDINGS: LUNGS: No active pulmonary disease. PLEURA: No significant pleural effusion identified, no pneumothorax apparent. CARDIOVASCULAR: Normal. OSSEOUS STRUCTURES: No significant abnormalities. VISUALIZED UPPER ABDOMEN: Normal. OTHER FINDINGS: None. IMPRESSION: No active disease.
--- NOTE | 2017-03-10 14:45 | ED PDOC ---
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 Patient was sent in by Dr. Lind due to low sodium levels. Patient states she had blood drawn today and feels ok thus far but is starting to experience fatigue. Also, she mention experiencing intense right knee pain and cannot seem to move her knee. Patient notes experiencing difficulty swallowing food, but is able to swallow fluids, but denies of any nausea, vomiting, abdominal pain, chest pain, shortness of breath, dizziness, visual changes, or any other complaints. PMD: Dr. Pandey Oncologist: Dr. Lind Symptom Onset: Sudden Symptom Course: Unchanged Past Medical History - Provider Review Nursing Documentation Reviewed: Yes - Infectious Disease Hx of Infectious Diseases: None - Reproductive Menopause: Yes - Cardiac Hx Pacemaker: No - Pulmonary Hx Respiratory Disorders: Yes Hx Lung Cancer: Yes Other/Comment: renal ca with mets to lungs - Neurological Hx Paralysis: No - Renal Hx Renal Cancer: Yes Other/Comment: right side nephrectomy - Hematological/Oncological Hx Blood Transfusions: No - Musculoskeletal/Rheumatological Hx Musculoskeletal Disorders: Yes (NEUROPATHY/POLYMYALGIA) Hx Rheumatoid Arthritis: Yes Other/Comment: abd aortic aneurysm - Gastrointestinal Other/Comment: hemochromatosis,post rt nephrectomy polymyalgia rheumatica - Psychiatric Hx Emotional Abuse: No Hx Physical Abuse: No Hx Substance Use: No - Surgical History Hx Cardiac Catheterization: Yes - Anesthesia Hx Anesthesia Reactions: No Hx Malignant Hyperthermia: No - Suicidal Assessment Feels Threatened In Home Enviroment: No Family/Social History - Physician Review Nursing Documentation Reviewed: Yes Family/Social History: No Known Family HX Smoking Status: Never Smoked Hx Alcohol Use: Yes (COCKTAIL DAILY) Hx Substance Use: No Allergies/Home Meds Allergies/Adverse Reactions: Allergies No Known Allergies Allergy (Verified 03/10/17 13:47) Home Medications: Home Meds Medication Instructions Recorded Confirmed Methotrexate 2.5 mg PO QWK 02/26/17 03/10/17 Aspirin [Adult Low Dose Aspirin EC] 81 mg PO DAILY 03/10/17 03/10/17 Metoprolol Tartrate [Lopressor] 25 mg PO DAILY 03/10/17 03/10/17 Review of Systems - Physician Review All systems were reviewed & negative as marked: Yes - Review of Systems Constitutional: Fatigue (patient states she is beginning to experience fatigue) Eyes: absent: Vision Changes Respiratory: absent: SOB Cardiovascular: absent: Chest Pain Gastrointestinal: Other (difficulty swallowing food, no diffulty swallowing fluids). absent: Abdominal Pain, Nausea, Vomiting Musculoskeletal: Other (right knee pain, can't move knee) Physical Exam Vital Signs Reviewed: Yes Vital Signs Temp Pulse Resp BP Pulse Ox 03/10/17 17:00 94 H 16 132/78 99 03/10/17 14:44 97.7 F 62 18 139/86 100 03/10/17 13:47 97.8 F 94 H 19 122/79 98 Temperature: Afebrile Blood Pressure: Normal Pulse: Regular Respiratory Rate: Normal Appearance: Positive for: Well-Appearing Pain Distress: None Mental Status: Positive for: Alert and Oriented X 3 - Systems Exam Head: Present: Atraumatic, Normocephalic Pupils: Present: PERRL Conjunctiva: Present: Normal Mouth: Present: Moist Mucous Membranes Pharnyx: Present: Normal. No: ERYTHEMA, EXUDATE Neck: Present: Normal Range of Motion Respiratory/Chest: Present: Clear to Auscultation, Good Air Exchange. No: Respiratory Distress, Accessory Muscle Use Cardiovascular: Present: Regular Rate and Rhythm, Normal S1, S2. No: Murmurs Abdomen: Present: Normal Bowel Sounds. No: Tenderness, Distention, Peritoneal Signs Back: Present: Normal Inspection Upper Extremity: Present: Normal Inspection. No: Cyanosis, Edema Lower Extremity: Present: Tenderness (slight tenderness to right knee, no warmth ). No: Swelling (no swelling to right knee), Erythema (no erythema of right knee) Neurological: Present: GCS=15, CN II-XII Intact, Speech Normal Skin: Present: Warm, Dry, Normal Color. No: Rashes Psychiatric: Present: Alert, Oriented x 3, Normal Insight, Normal Concentration Medical Decision Making ED Course and Treatment: 03/10/17 14:28 Impression: 77 year old female with hyponatremia and right knee pain. Physical exam shows slight tenderness to right knee, no warmth, no swelling, no erythema ; overall normal exam. Plan: -- EKG -- Right Knee X-Ray -- Chest X-ray -- Labs -- Urinalysis -- IV Fluids -- Reassess and disposition Prior Visits: Notes and results from previous visits were reviewed. Patient was last seen in the emergency department on 02/26/2017 for evaluation after mechanical fall. Patient was discharged. Progress Notes: 03/10/2017 14:26 Chest X-ray IMPRESSION: No active disease. Dictator: Mario Mccoy 03/10/2017 15:50 Right Knee X-Ray IMPRESSION: No acute fracture or dislocation. Small suprapatellar joint effusion. Dictator: Ann-Marie Hong MD 03/10/17 17:36 Patient with noted history with Na level of 120 - will need to be admitted for treatment; case was previously discussed with Dr. Lind, who said to start hypertonic saline. - Lab Interpretations Lab Results: 03/10/17 15:13 03/10/17 15:13 Lab Results 03/10/17 15:13: Sodium 120 L, Potassium 4.6, Chloride 85 L, Carbon Dioxide 23, Anion Gap 17, BUN 14, Creatinine 0.6, Est GFR ( Amer) > 60, Est GFR (Non- Af Amer) > 60, Random Glucose 106, Calcium 9.2, Total Bilirubin 1.4 H, AST 27, ALT 30, Alkaline Phosphatase 72, Lactate Dehydrogenase 525, Total Creatine Kinase 39, Troponin I < 0.01, Total Protein 6.7, Albumin 3.9, Globulin 2.8, Albumin/Globulin Ratio 1.4, Amylase 71, Lipase 142 03/10/17 15:13: PT 11.8, INR 1.09 H, APTT 29.6 03/10/17 15:13: WBC 11.0 D, RBC 3.33 L, Hgb 11.1 L, Hct 30.8 L, MCV 92.5 D, MCH 33.3, MCHC 36.0, RDW 13.0, Plt Count 221, MPV 9.9, Gran % 88.1 H, Lymph % ( Auto) 4.5 L, [place] % (Auto) 7.0 H, Eos % (Auto) 0.3 L, Baso % (Auto) 0.1, Gran # 9.71 H, Lymph # 0.5 L, [place] # 0.8 H, Eos # 0.0, Baso # 0.01, Neutrophils % ( Manual) 91 H, Lymphocytes % (Manual) 4 L, Monocytes % (Manual) 5, Platelet Evaluation Normal I have reviewed the lab results: Yes - RAD Interpretation Radiology Orders: 03/10/17 13:43 CHEST PORTABLE [RAD] Stat 03/10/17 14:27 KNEE W PATELLA RIGHT 3 VIEW [RAD] Stat - EKG Interpretation EKG Interpretation (Text): 03/10/17 17:37 NSR @ 85 with RBBB with inferior T wave inversions; no new ST/T changes c/w previous on 02/28/17; QRS is 138. Interpreted by ED Physician: Yes Type: 12 lead EKG Comparison: Similar to previous EKG - Medication Orders Current Medication Orders: Sodium Chloride (Hypertonic Saline 3%) 360 mls @ 25 mls/hr IV .[id number] STA Stop: 03/11/17 04:15 - Scribe Statement The provider has reviewed the documentation as recorded by the Guilherme Grissom Provider Scribe Attestation: All medical record entries made by the Scribe were at my direction and personally dictated by me. I have reviewed the chart and agree that the record accurately reflects my personal performance of the history, physical exam, medical decision making, and the department course for this patient. I have also personally directed, reviewed, and agree with the discharge instructions and disposition. Disposition/Present on Arrival - Present on Arrival Any Indicators Present on Arrival: No History of DVT/PE: No History of Uncontrolled Diabetes: No Urinary Catheter: No History of Decub. Ulcer: No History Surgical Site Infection Following: None - Disposition Have Diagnosis and Disposition been Completed?: Yes Diagnosis: Hyponatremia Disposition: HOSPITALIZED Disposition Time: 16:00 Patient Plan: Admission Condition: FAIR
[2017-03-10 15:31] LABS: BASO # 0.01 K/mm3 (0.0-2.0); BASO % 0.1 % (0.0-3.0); EOS % 0.3 % (1.5-5.0); GRAN # 9.71 (1.4-6.5); GRAN % 88.1 % (50.0-68.0); HEMATOCRIT 30.8 % (36.0-48.0); LYMPH # 0.5 (1.2-3.4); LYMPH % 4.5 % (22.0-35.0); MEAN CELL VOLUME 92.5 fl (80.0-105.0); MEAN CORPUSCULAR HEMOGLOBIN 33.3 pg (25.0-35.0); MEAN PLATELET VOLUME 9.9 fl (7.0-11.0); MONO # 0.8 (0.1-0.6); PLATELET COUNT 221 10^3/uL (120.0-450.0)
[2017-03-10 15:36] LABS: ALB/GLOB RATIO 1.4 (1.1-1.8); ALKALINE PHOSPHATASE 72 U/L (38-126); ALT/SGPT 30 U/L (7-56); AMYLASE 71 U/L (35-125); AST/SGOT 27 U/L (14-36); BILIRUBIN,TOTAL 1.4 mg/dL (0.2-1.3); BLOOD UREA NITROGEN 14 mg/dL (7-21); CALCIUM 9.2 mg/dL (8.4-10.5); CARBON DIOXIDE 23 mmol/L (21-33); CHLORIDE 85 mmol/L (98-107); GFR AFRICAN-AMERICAN > 60; GLUCOSE,RANDOM 106 mg/dL (70-110); LIPASE 142 U/L (23-300); POTASSIUM 4.6 mmol/L (3.6-5.0); SODIUM 120 mmol/L (132-148); TOTAL PROTEIN 6.7 g/dL (5.8-8.3)
[2017-03-10 15:38] LABS: INR 1.09 (0.93-1.08); PARTIAL THROMBOPLASTIN TIME 29.6 Seconds (23.7-30.8)
[2017-03-10 15:48] LABS: TROPONIN I < 0.01 ng/mL
--- NOTE | 2017-03-10 15:51 | RAD ---
PROCEDURE: Right Knee Radiographs. HISTORY: R knee pain COMPARISON: None. FINDINGS: BONES: There is no acute displaced fracture or bone destruction. There is diffuse bone demineralization. JOINTS: Normal. No osteoarthritis. JOINT EFFUSION: There is a small suprapatellar joint effusion. OTHER FINDINGS: There are atherosclerotic vascular calcifications. IMPRESSION: No acute fracture or dislocation. Small suprapatellar joint effusion.
[2017-03-10 16:00] LABS: NEUTROPHIL 91 % (50.0-70.0); PLATELET ESTIMATE NORMAL (NORMAL)
[2017-03-10] MEDS ORDERED: MethylPREDNISolone Depo 40 mg/ml Inj IM ONE (18:30)
[2017-03-10] MEDS ORDERED: Bupivacaine 0.5% Inj(30mL) IJ ONE (18:30)
--- NOTE | 2017-03-10 20:07 | CP.PCM.HP ---
History of Present Illness - History of Present Illness History of Present Illness: H&P for Dr. Lind's Service HPI: Patient is a 77yo female with past medical history of hypertension, CAD w/ stent placement, polymyalgia rheumatic on methotrexate, Renal cell ca with lung mets s/p R nephrectomy previously treated with interferon and aortic aneurysm that presented to [facility] outpatient appointment with Dr. Lind. On evaluation in his office, patients sodium was noted to be 118 at which time she was instructed to go to the emergency room. 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 Of note, she underwent an EGD/EUS/FNA of a right subcarinal lymph node on 03/09. Pathology results are pending at this time for evaluation of possible recurrence of renal cell carcinoma vs primary lung cancer. At this time, patient denied any chest pain, palpitations, SOB, abdominal pain, nausea, vomiting, fever, chills, cough, focal weakness, numbness, tingling. 12point ROS as per HPI above, otherwise negative PMHx: see above PSHx: R nephrectomy, FNA of right subcarinal lymph node (03/09/17) Allergies: NKDA Social Hx: Former smoker, reports quitting 3 years prior; denies alcohol and illicit drug use Family Hx: History of CAD/GA in both parents; brother: diabetes PMD: Dr. Pandey Present on Admission - Present on Admission Any Indicators Present on Admission: No Past Patient History - Infectious Disease Hx of Infectious Diseases: None - Past Social History Smoking Status: Never Smoked - CARDIAC Hx Pacemaker: No - PULMONARY Hx Respiratory Disorders: Yes Hx Lung Cancer: Yes Other/Comment: renal ca with mets to lungs - NEUROLOGICAL Hx Paralysis: No - RENAL Hx Renal (Kidney) Cancer: Yes Other/Comment: right side nephrectomy - HEMATOLOGICAL/ONCOLOGICAL Hx Blood Transfusions: No - MUSCULOSKELETAL/RHEUMATOLOGICAL Hx Musculoskeletal Disorders: Yes (NEUROPATHY/POLYMYALGIA) Hx Rheumatoid Arthritis: Yes Other/Comment: abd aortic aneurysm - GASTROINTESTINAL Other/Comment: hemochromatosis,post rt nephrectomy polymyalgia rheumatica - PSYCHIATRIC Hx Emotional Abuse: No Hx Physical Abuse: No Hx Substance Use: No - SURGICAL HISTORY Hx Cardiac Catheterization: Yes - ANESTHESIA Hx Anesthesia Reactions: No Hx Malignant Hyperthermia: No Meds Allergies/Adverse Reactions: Allergies Allergy/AdvReac Type Severity Reaction Status Date / Time No Known Allergies Allergy Verified 03/10/17 13:47 Physical Exam - Constitutional Appears: No Acute Distress - Head Exam Head Exam: ATRAUMATIC, NORMAL INSPECTION, NORMOCEPHALIC - Eye Exam Eye Exam: EOMI, Normal appearance Pupil Exam: PERRL - ENT Exam ENT Exam: Mucous Membranes Moist - Respiratory Exam Respiratory Exam: Clear to Auscultation Bilateral. absent: Rales, Rhonchi, Wheezes - Cardiovascular Exam Cardiovascular Exam: RRR, +S1, +S2. absent: Gallop, Rubs - GI/Abdominal Exam GI & Abdominal Exam: Soft. absent: Distended, Firm, Guarding, Rigid - Extremities Exam Extremities exam: Positive for: normal inspection. Negative for: pedal edema, tenderness - Neurological Exam Neurological exam: Alert, CN II-XII Intact, Oriented x3 - Psychiatric Exam Psychiatric exam: Normal Affect, Normal Mood - Skin Skin Exam: Dry, Intact, Normal Color, Warm Results - Vital Signs Recent Vital Signs: Last Vital Signs Temp 97.7 F 03/10/17 14:44 Pulse 94 H 03/10/17 17:00 Resp 16 03/10/17 17:00 BP 132/78 03/10/17 17:00 Pulse Ox 99 03/10/17 17:00 - Labs Result Diagrams: 03/10/17 15:13 03/10/17 15:13 Assessment & Plan - Assessment and Plan (Free Text) Plan: 77yo female with past medical history of hypertension, CAD w/ stent placement, polymyalgia rheumatic on methotrexate, Renal cell ca with lung mets s/p R nephrectomy previously treated with interferon and aortic aneurysm admitted to [facility] for hyponatremia evaluation/treatment 1. 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 Mcpherson -Will consider using vaptans for correction 2. Hx of RCC with lung mets -Patient is s/p EGD/EUS/FNA of right carinal lymph node on 03/09/[address] Parul -Pending pathology results from the FNA to distinguish whether this is a recurrence of RCC or a primary lung carcinoma 3. Polymyalgia rheumatica -Patient follows up with outpatient carton catcher -Currently treated with methotrexate 4. Right Knee pain -Right knee xray pending -Orthopedics consulted - Dr. Duque Patient seen and case discussed with attending, Dr. Lind
[2017-03-11 06:22] LABS: GFR AFRICAN-AMERICAN > 60
[2017-03-11 06:42] LABS: BASO # 0.01 K/mm3 (0.0-2.0); BASO % 0.2 % (0.0-3.0); EOS # 0.1 (0.0-0.7); EOS % 1.2 % (1.5-5.0); GRAN # 4.44 (1.4-6.5); GRAN % 76.5 % (50.0-68.0); HEMATOCRIT 27.9 % (36.0-48.0); LYMPH # 0.6 (1.2-3.4); LYMPH % 10.7 % (22.0-35.0); MEAN CELL VOLUME 91.5 fl (80.0-105.0); MEAN CORPUSCULAR HEMOGLOBIN 32.5 pg (25.0-35.0); MEAN CORPUSCULAR HGB CONC 35.5 g/dl (31.0-37.0); MEAN PLATELET VOLUME 9.8 fl (7.0-11.0); MONO # 0.7 (0.1-0.6); MONO % 11.4 % (1.0-6.0); RED CELL DISTRIBUTION WIDTH 13.1 % (11.5-14.5); WHITE BLOOD COUNT 5.8 10^3/ul (4.5-11.0)
[2017-03-11 07:08] LABS: ALB/GLOB RATIO 1.2 (1.1-1.8); ALKALINE PHOSPHATASE 61 U/L (38-126); ALT/SGPT 31 U/L (7-56); AST/SGOT 24 U/L (14-36); BILIRUBIN,TOTAL 1.2 mg/dL (0.2-1.3); BLOOD UREA NITROGEN 10 mg/dL (7-21); CALCIUM 8.7 mg/dL (8.4-10.5); CARBON DIOXIDE 21 mmol/L (21-33); CHLORIDE 91 mmol/L (95-110); GLUCOSE,RANDOM 82 mg/dL (70-110); MAGNESIUM 1.2 mg/dL (1.7-2.2); POTASSIUM 3.7 mmol/L (3.6-5.0); SODIUM 124 mmol/L (132-148); TOTAL PROTEIN 5.8 g/dL (5.8-8.3); URIC ACID 3.7 mg/dL (2.5-6.2)
[2017-03-11 07:14] LABS: FLUID TYPE SYNOVIAL FLUID
[2017-03-11 07:29] LABS: SYNOVIAL FLUID LYMPHOCYTE 11.3 % (0-0); SYNOVIAL FLUID NEUTROPHIL 88.7 % (0-0); SYNOVIAL FLUID TOTAL COUNT 100 (0-0)
[2017-03-11] MEDS ORDERED: Magnesium Sulfate 2 GM in Sodium Chloride 0.9% 100 ML IVPB ONE (09:40)
--- NOTE | 2017-03-11 09:48 | CP.PCM.PN ---
Subjective - Date & Time of Evaluation Date of Evaluation: 03/11/17 Time of Evaluation: 09:45 - Subjective Subjective: Progress note for Dr. Lind's service Patient seen and examined at bedside. No acute overnight events or new complaints reported. Hyponatremia resolving at this time. Denies chest pain, palpitations, SOB. Objective - Vital Signs/Intake and Output Vital Signs (last 24 hours): Temp Pulse Resp BP Pulse Ox 98.3 F 80 18 121/71 98 03/11/17 03:23 03/11/17 09:26 03/11/17 09:26 03/11/17 09:26 03/11/17 09:26 - Medications Medications: Current Medications Aspirin (Ecotrin) 81 mg PO DAILY [place] Folic Acid (Folic Acid) 1 mg PO DAILY [place] Magnesium Sulfate 2 gm/ Sodium (Chloride) 104 mls @ 102 mls/hr IVPB ONCE ONE Stop: 03/11/17 10:41 Methotrexate (Methotrexate) 2.5 mg PO QWK [place] Metoprolol Tartrate (Lopressor) 25 mg PO DAILY [place] Tolvaptan (Samsca) 15 mg PO DAILY [place] Stop: 03/13/17 09:38 - Labs Labs: 03/11/17 05:30 03/11/17 05:30 PT 11.8 Seconds (9.9-11.8) 03/10/17 15:13 INR 1.09 (0.93-1.08) H 03/10/17 15:13 APTT 29.6 Seconds (23.7-30.8) 03/10/17 15:13 - Constitutional Appears: No Acute Distress - Head Exam Head Exam: ATRAUMATIC, NORMAL INSPECTION, NORMOCEPHALIC - Eye Exam Eye Exam: EOMI, PERRL - ENT Exam ENT Exam: Mucous Membranes Moist - Respiratory Exam Respiratory Exam: Clear to Ausculation Bilateral. absent: Rales, Rhonchi, Wheezes - Cardiovascular Exam Cardiovascular Exam: +S1, +S2. absent: Gallop, Rubs, Murmur - GI/Abdominal Exam GI & Abdominal Exam: Soft. absent: Distended, Firm, Guarding, Rigid, Tenderness , Rebound - Extremities Exam Extremities Exam: absent: Calf Tenderness, Pedal Edema, Tenderness - Neurological Exam Neurological Exam: Alert, Awake, Oriented x3 - Psychiatric Exam Psychiatric exam: Normal Affect, Normal Mood - Skin Skin Exam: Dry, Intact, Normal Color, Warm Assessment and Plan - Assessment and Plan (Free Text) Plan: 77yo female with past medical history of hypertension, CAD w/ stent placement, polymyalgia rheumatic on methotrexate, Renal cell ca with lung mets s/p R nephrectomy previously treated with interferon and aortic aneurysm admitted to [facility] [place] for hyponatremia evaluation/treatment 1. 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 Mcpherson 2. Hx of RCC with lung mets -Patient is s/p EGD/EUS/FNA of right carinal lymph node on 03/09/[address] Teran -Pending pathology results from the FNA to distinguish whether this is a recurrence of RCC or a primary lung carcinoma 3. Polymyalgia rheumatica -Patient follows up with outpatient helpdesk specialist -Currently treated with methotrexate 4. Right Knee pain -Right knee xray revealed no acute fracture or dislocation; small suprapatellar joint effusion -Patient is s/p right knee joint injection by ortho -Synovial fluid sent for analysis -Orthopedics consulted - Dr. Duque Patient seen and case discussed with attending, Dr. Lind
--- NOTE | 2017-03-11 10:37 | CP.PCM.CON ---
<Concha Montalvo - Last Filed: 03/11/17 10:38> History of Present Illness - History of Present Illness History of Present Illness: PGY-[address] Mcpherson 77yo female with past medical history of hypertension, CAD w/ stent placement, polymyalgia rheumatic on methotrexate, Renal cell ca with lung mets s/p R nephrectomy previously treated with interferon and aortic aneurysm that presented with hyponatremia. Pateint states that she went for an outpatient appointment with Dr. Lind and was found to have sodium level of 118. She was advised to go to the emergency department. 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 Patient was recently in hospital, she underwent an EGD/EUS/FNA of a right subcarinal lymph node on . Currently patient has no complaints. She denies any chest pain, palpitations , SOB, abdominal pain, nausea, vomiting, fever, chills, cough, focal weakness, numbness, tingling. PMH: hypertension, CAD w/ stent placement, polymyalgia rheumatic on methotrexate , Renal cell ca with lung mets PSH: Right nephrectomy, cardiac cath, FNA of right subcarinal lymph node () Allergies: NKDA Social Hx: Former smoker, reports quitting 3 years prior; denies alcohol and illicit drug use Family Hx: History of CAD/SD in both parents; brother: diabetes Review of Systems - Constitutional Constitutional: absent: Chills, Fatigue, Fever, Lethargy, Weakness - EENT Eyes: absent: Change in Vision Nose/Mouth/Throat: absent: Nasal Congestion, Nasal Discharge, Sore Throat - Cardiovascular Cardiovascular: absent: Chest Pain, Dyspnea, Leg Edema, Palpitations, Syncope - Respiratory Respiratory: absent: Cough, Dyspnea, Hemoptysis, Dyspnea on Exertion, Wheezing - Gastrointestinal Gastrointestinal: absent: Abdominal Pain, Constipation, Diarrhea, Nausea, Vomiting - Genitourinary Genitourinary: absent: Difficulty Urinating, Dysuria, Hematuria - Musculoskeletal Musculoskeletal: Arthralgias. absent: Numbness, Tingling - Integumentary Integumentary: absent: Pruritus, Rash, Skin Ulcer, Sores, Wounds - Neurological Neurological: absent: Dizziness, Numbness, Focal Weakness, Headaches, Syncope, Tingling - Hematologic/Lymphatic Hematologic: absent: Easy Bleeding, Easy Bruising Past Patient History - Infectious Disease Hx of Infectious Diseases: None - Past Social History Smoking Status: Never Smoked - CARDIAC Hx Pacemaker: No - PULMONARY Hx Respiratory Disorders: Yes Hx Lung Cancer: Yes Other/Comment: renal ca with mets to lungs - NEUROLOGICAL Hx Paralysis: No - RENAL Hx Renal (Kidney) Cancer: Yes Other/Comment: right side nephrectomy - HEMATOLOGICAL/ONCOLOGICAL Hx Blood Transfusions: No - MUSCULOSKELETAL/RHEUMATOLOGICAL Hx Musculoskeletal Disorders: Yes (NEUROPATHY/POLYMYALGIA) Hx Rheumatoid Arthritis: Yes Other/Comment: abd aortic aneurysm - GASTROINTESTINAL Other/Comment: hemochromatosis,post rt nephrectomy polymyalgia rheumatica - PSYCHIATRIC Hx Emotional Abuse: No Hx Physical Abuse: No Hx Substance Use: No - SURGICAL HISTORY Hx Cardiac Catheterization: Yes - ANESTHESIA Hx Anesthesia Reactions: No Hx Malignant Hyperthermia: No Meds Allergies/Adverse Reactions: Allergies Allergy/AdvReac Type Severity Reaction Status Date / Time No Known Allergies Allergy Verified 03/10/17 13:47 - Medications Medications: Current Medications Aspirin (Ecotrin) 81 mg PO DAILY [facility] Folic Acid (Folic Acid) 1 mg PO DAILY [facility] Magnesium Sulfate 2 gm/ Sodium (Chloride) 104 mls @ 102 mls/hr IVPB ONCE ONE Stop: 03/11/17 10:41 Methotrexate (Methotrexate) 2.5 mg PO QWK [facility] Metoprolol Tartrate (Lopressor) 25 mg PO DAILY [facility] Tolvaptan (Samsca) 15 mg PO DAILY [facility] Stop: 03/13/17 09:38 Results - Vital Signs Recent Vital Signs: Last Vital Signs Temp 98.3 F 03/11/17 03:23 Pulse 80 03/11/17 09:26 Resp 18 03/11/17 09:26 BP 121/71 03/11/17 09:26 Pulse Ox 98 03/11/17 09:26 - Labs Result Diagrams: 03/11/17 05:30 03/11/17 05:30 Labs: Laboratory Results - last 24 hr 03/11/17 03/11/17 03/11/17 05:30 05:30 07:14 WBC 5.8 D RBC 3.05 L Hgb 9.9 L Hct 27.9 L MCV 91.5 MCH 32.5 MCHC 35.5 RDW 13.1 Plt Count 201 MPV 9.8 Gran % 76.5 H Lymph % (Auto) 10.7 L [place] % (Auto) 11.4 H Eos % (Auto) 1.2 L Baso % (Auto) 0.2 Gran # 4.44 Lymph # 0.6 L [place] # 0.7 H Eos # 0.1 Baso # 0.01 Sodium 124 L Potassium 3.7 Chloride 91 L Carbon Dioxide 21 Anion Gap 16 BUN 10 Creatinine 0.5 Est GFR ( Amer) > 60 Est GFR (Non-Af Amer) > 60 Random Glucose 82 Uric Acid 3.7 Calcium 8.7 Phosphorus 3.0 Magnesium 1.2 L Total Bilirubin 1.2 AST 24 ALT 31 Alkaline Phosphatase 61 Total Protein 5.8 Albumin 3.1 Globulin 2.7 Albumin/Globulin Ratio 1.2 Fluid Type Synovial fluid Synovial WBC 99702.0 H Synovial RBC 10.0 H Synovial Neutrophils 88.7 H Synovial Lymphocytes 11.3 H Synov Monos/Macrophage TEST NOT PERFORMED Synovial Fluid Comment TEST NOT PERFORMED Assessment & Plan - Assessment and Plan (Free Text) Assessment: 77yo female with past medical history of hypertension, CAD w/ stent placement, polymyalgia rheumatic on methotrexate, Renal cell ca with lung mets s/p R nephrectomy previously treated with interferon and aortic aneurysm presents with hyponatremia. Plan: 1. Hyponatremia - Serum sodium on arrival noted to be 120 - Treated in the ED with 3% saline - serum osmolality low, indicating hypotonic - patient does not appear to be fluid overloaded based on BP, CXR and exam - most likely hypotonic euvolemic hyponatremia 2/2 SIADH - remaining work up pending: Urine Osm, Urine sodium - Likely SIADH in etiology given history of lung nodules however workup is pending - Recommend fluid restriction at this time - will start tolvaptan - will repeat Urine sodium and osmolality tomorrow - correct sodium by 6-8meq within 24hrs to prevent central pontine myelinolysis 2. Hx of RCC with lung mets - Patient is s/p EGD/EUS/FNA of right carinal lymph node on 03/09/[address] Teran - Pending pathology 3. HTN - cont home med, metoprolol <Collins Mcpherson S - Last Filed: 03/11/17 20:37> Meds - Medications Medications: Current Medications Aspirin (Ecotrin) 81 mg PO DAILY [facility] Last Admin: 03/11/17 10:57 Dose: 81 mg Folic Acid (Folic Acid) 1 mg PO DAILY [facility] Last Admin: 03/11/17 10:57 Dose: 1 mg Methotrexate (Methotrexate) 2.5 mg PO QWK [facility] Metoprolol Tartrate (Lopressor) 25 mg PO DAILY [facility] Last Admin: 03/11/17 11:00 Dose: 25 mg Tolvaptan (Samsca) 15 mg PO DAILY [facility] Stop: 03/13/17 09:38 Last Admin: 03/11/17 11:18 Dose: 15 mg Results - Vital Signs Recent Vital Signs: Last Vital Signs Temp 98.1 F 03/11/17 17:41 Pulse 83 03/11/17 17:41 Resp 20 03/11/17 17:41 BP 140/63 03/11/17 17:41 Pulse Ox 97 03/11/17 17:41 - Labs Result Diagrams: 03/11/17 05:30 03/11/17 15:25 Labs: Laboratory Results - last 24 hr 03/11/17 03/11/17 03/11/17 05:30 05:30 05:30 WBC 5.8 D RBC 3.05 L Hgb 9.9 L Hct 27.9 L MCV 91.5 MCH 32.5 MCHC 35.5 RDW 13.1 Plt Count 201 MPV 9.8 Gran % 76.5 H Lymph % (Auto) 10.7 L [place] % (Auto) 11.4 H Eos % (Auto) 1.2 L Baso % (Auto) 0.2 Gran # 4.44 Lymph # 0.6 L [place] # 0.7 H Eos # 0.1 Baso # 0.01 Sodium 124 L Potassium 3.7 Chloride 91 L Carbon Dioxide 21 Anion Gap 16 BUN 10 Creatinine 0.5 Est GFR ( Amer) > 60 Est GFR (Non-Af Amer) > 60 Random Glucose 82 Serum Osmolality 259 L Uric Acid 3.7 Calcium 8.7 Phosphorus 3.0 Magnesium 1.2 L Total Bilirubin 1.2 AST 24 ALT 31 Alkaline Phosphatase 61 Total Protein 5.8 Albumin 3.1 Globulin 2.7 Albumin/Globulin Ratio 1.2 Fluid Type Synovial WBC Synovial RBC Synovial Neutrophils Synovial Lymphocytes Synov Monos/Macrophage Synovial Fluid Comment 03/11/17 03/11/17 07:14 15:25 WBC RBC Hgb Hct MCV MCH MCHC RDW Plt Count MPV Gran % Lymph % (Auto) [place] % (Auto) Eos % (Auto) Baso % (Auto) Gran # Lymph # [place] # Eos # Baso # Sodium 126 L Potassium 3.7 Chloride 94 L Carbon Dioxide 23 Anion Gap 13 BUN 12 Creatinine 0.6 Est GFR ( Amer) > 60 Est GFR (Non-Af Amer) > 60 Random Glucose 121 H Serum Osmolality Uric Acid Calcium 9.0 Phosphorus Magnesium Total Bilirubin AST ALT Alkaline Phosphatase Total Protein Albumin Globulin Albumin/Globulin Ratio Fluid Type Synovial fluid Synovial WBC 20297.0 H Synovial RBC 10.0 H Synovial Neutrophils 88.7 H Synovial Lymphocytes 11.3 H Synov Monos/Macrophage TEST NOT PERFORMED Synovial Fluid Comment TEST NOT PERFORMED Assessment & Plan - Assessment and Plan (Free Text) Plan: Pt seen and examined. Agree with note of the medical receptionist assistant. Mg low and has been replaced. Pt with hyponatremia most likely from SIADH. Urine Na not yet collected. Pt was also drinking lots of water as well at home. Will start Tolvaptan. Also advised pt to minimize water intake.
[2017-03-11] MEDS: Tolvaptan 15 MG TAB PO SCH (11:18)
--- NOTE | 2017-03-11 11:44 | CARD ---
APPROVED REPORT EKG Measurement Heart [id number] <Conclusion> Sinus rhythm with premature atrial complexes Possible Left atrial enlargement Right bundle branch block T wave abnormality, consider inferior ischemia Abnormal ECG
--- NOTE | 2017-03-11 15:12 | CON ---
DATE: 03/11/2017 ORTHOPEDIC CONSULT REQUESTING PHYSICIANS: Dr. Lind and Dr. Luis Zafar. The patient is in emergency room. The patient was seen for right knee pain. X-ray showed some mild osteoarthritis with an infusion. The pain is there for about 1 month and it was getting better with rest. I had took the opportunity to aspirate fluid and sent it for culture; cell count and crystals were interpreted, almost look like an inflammatory arthritis, not infectious, it could be gout or pseudogout. So, we took out the fluids and the sent it to the lab for cultures, crystals and cell count. Injected the knee with Depo-Medrol and Marcaine. Hopefully, this will come back to negative for culture, but she may have some crystals and mild elevated white count. So, Depo-Medrol and Marcaine will help her for a while to get her feel better and go for therapy. FINAL DIAGNOSIS: Inflammatory arthritis, right knee. PLAN: I will follow her in the hospital. Timbo Duque DO
[2017-03-11 15:16] VITALS: BMI 23.5
[2017-03-11] MEDS ORDERED: Pneumococcal 23-Valent Vaccine IM ONE (15:17)
[2017-03-11 15:40] LABS: BLOOD UREA NITROGEN 12 mg/dL (7-21); CARBON DIOXIDE 23 mmol/L (21-33); CHLORIDE 94 mmol/L (98-107); GFR AFRICAN-AMERICAN > 60; GLUCOSE,RANDOM 121 mg/dL (70-110); POTASSIUM 3.7 mmol/L (3.6-5.0); SODIUM 126 mmol/L (132-148)
[2017-03-12 06:10] VITALS: TEMP 97.9
[2017-03-12 06:32] LABS: BASO # 0.01 K/mm3 (0.0-2.0); BASO % 0.2 % (0.0-3.0); EOS % 0.8 % (1.5-5.0); GRAN # 3.89 (1.4-6.5); GRAN % 76.4 % (50.0-68.0); HEMATOCRIT 29.4 % (36.0-48.0); LYMPH # 0.6 (1.2-3.4); LYMPH % 12.6 % (22.0-35.0); MEAN CELL VOLUME 95.5 fl (80.0-105.0); MEAN CORPUSCULAR HEMOGLOBIN 32.8 pg (25.0-35.0); MEAN CORPUSCULAR HGB CONC 34.4 g/dl (31.0-37.0); MEAN PLATELET VOLUME 9.5 fl (7.0-11.0); MONO # 0.5 (0.1-0.6); RED CELL DISTRIBUTION WIDTH 13.4 % (11.5-14.5); WHITE BLOOD COUNT 5.1 10^3/ul (4.5-11.0)
[2017-03-12 06:55] LABS: ALB/GLOB RATIO 1.3 (1.1-1.8); ALKALINE PHOSPHATASE 66 U/L (38-126); ALT/SGPT 22 U/L (7-56); AST/SGOT 27 U/L (14-36); BILIRUBIN,TOTAL 0.6 mg/dL (0.2-1.3); BLOOD UREA NITROGEN 10 mg/dL (7-21); CALCIUM 9.5 mg/dL (8.4-10.5); CARBON DIOXIDE 25 mmol/L (21-33); CHLORIDE 101 mmol/L (98-107); GFR AFRICAN-AMERICAN > 60; GLUCOSE,RANDOM 99 mg/dL (70-110); POTASSIUM 4.8 mmol/L (3.6-5.0); SODIUM 138 mmol/L (132-148); TOTAL PROTEIN 6.1 g/dL (5.8-8.3)
--- NOTE | 2017-03-12 08:58 | CP.PCM.PN ---
<Concha Montalvo - Last Filed: 03/12/17 11:23> Subjective - Date & Time of Evaluation Date of Evaluation: 03/12/17 Time of Evaluation: 08:57 - Subjective Subjective: PGY-[address] Mcpherson Patient seen and examined at bedside. No acute distress. Patient is feeling well and has no complaints. She denies chest pain, dizziness, fever, chill, abd pain, n/v/d/c, dysuria. She is tolerating diet. Objective - Vital Signs/Intake and Output Vital Signs (last 24 hours): Temp Pulse Resp BP Pulse Ox 97.9 F 96 H 20 142/82 98 03/12/17 08:33 03/12/17 08:33 03/12/17 08:33 03/12/17 08:33 03/12/17 08:33 Intake and Output: 03/12/17 03/12/17 06:59 18:59 Intake Total 300 Balance 300 - Medications Medications: Current Medications Aspirin (Ecotrin) 81 mg PO DAILY [facility] Last Admin: 03/11/17 10:57 Dose: 81 mg Folic Acid (Folic Acid) 1 mg PO DAILY [facility] Last Admin: 03/11/17 10:57 Dose: 1 mg Methotrexate (Methotrexate) 2.5 mg PO QWK [facility] Metoprolol Tartrate (Lopressor) 25 mg PO DAILY [facility] Last Admin: 03/11/17 11:00 Dose: 25 mg Tolvaptan (Samsca) 15 mg PO DAILY [facility] Stop: 03/13/17 09:38 Last Admin: 03/11/17 11:18 Dose: 15 mg - Labs Labs: 03/12/17 06:10 03/12/17 06:10 PT 11.8 Seconds (9.9-11.8) 03/10/17 15:13 INR 1.09 (0.93-1.08) H 03/10/17 15:13 APTT 29.6 Seconds (23.7-30.8) 03/10/17 15:13 - Constitutional Appears: Well, No Acute Distress - Head Exam Head Exam: ATRAUMATIC, NORMAL INSPECTION, NORMOCEPHALIC - Eye Exam Eye Exam: EOMI, Normal appearance - ENT Exam ENT Exam: Mucous Membranes Moist - Respiratory Exam Respiratory Exam: Clear to Ausculation Bilateral, NORMAL BREATHING PATTERN. absent: Decreased Breath Sounds, Rales, Rhonchi, Wheezes, Respiratory Distress - Cardiovascular Exam Cardiovascular Exam: REGULAR RHYTHM, +S1, +S2. absent: Tachycardia, Murmur - GI/Abdominal Exam GI & Abdominal Exam: Soft, Normal Bowel Sounds. absent: Distended, Firm, Tenderness - Extremities Exam Extremities Exam: Normal Inspection. absent: Pedal Edema - Neurological Exam Neurological Exam: Alert, Awake, Oriented x3 - Skin Skin Exam: Dry, Intact, Normal Color, Warm Assessment and Plan - Assessment and Plan (Free Text) Assessment: 77yo female with past medical history of hypertension, CAD w/ stent placement, polymyalgia rheumatic on methotrexate, Renal cell ca with lung mets s/p R nephrectomy previously treated with interferon and aortic aneurysm presents with hyponatremia. Plan: 1. Hyponatremia - Na levels improved to 138 - Serum sodium on arrival noted to be 120 - Treated in the ED with 3% saline - serum osmolality low, indicating hypotonic - patient does not appear to be fluid overloaded based on BP, CXR and exam - most likely hypotonic euvolemic hyponatremia 2/2 SIADH - remaining work up pending: Urine Osm, Urine sodium - Likely SIADH in etiology given history of lung nodules however workup is pending - Recommend fluid restriction at this time, pateint advised todrink lss water at home, and to only drink if she is thristy - will stop tolvaptan 2. Hx of RCC with lung mets - Patient is s/p EGD/EUS/FNA of right carinal lymph node on 03/09/[address] Teran - Pending pathology 3. HTN - cont home med, metoprolol 4. Right knee pain - joint aspiration - pathology showed calcium pyrophosphate crystals - probably 2/2 hypomagnesemia - magnesium was replaced, started on magOx 400mg BID <Collins Mcpherson S - Last Filed: 03/12/17 21:24> Objective - Vital Signs/Intake and Output Vital Signs (last 24 hours): Temp Pulse Resp BP Pulse Ox 97.9 F 61 19 140/81 97 03/12/17 16:57 03/12/17 16:57 03/12/17 16:57 03/12/17 16:57 03/12/17 16:57 Intake and Output: 03/12/17 03/13/17 18:59 06:59 Intake Total 600 Balance 600 - Labs Labs: 03/12/17 06:10 03/12/17 06:10 PT 11.8 Seconds (9.9-11.8) 03/10/17 15:13 INR 1.09 (0.93-1.08) H 03/10/17 15:13 APTT 29.6 Seconds (23.7-30.8) 03/10/17 15:13 Assessment and Plan - Assessment and Plan (Free Text) Plan: Pt seen and examined. Agree with above note of medical consultant. Meds reviewed. Eating ok. Mg replacement to continue. D/C Tolvaptan. Pt agreed to decrease water intake to 1.5 L per day.
[2017-03-12] MEDS: Tolvaptan 15 MG TAB PO SCH (09:40)
--- NOTE | 2017-03-12 13:28 | CP.PCM.CON ---
History of Present Illness - History of Present Illness History of Present Illness: Ms Jason is a 77 year old female with a newly diagnosed right lung mass. She has been under your care for her renal cancer. Most recently, she was admitted to [facility] with SIADH with hyponatremia. She fell at home and hit her head while getting up. She initially did not want to come to the hospital. However, over the subsequent days, she had issues with bone pain in her pelvis as well as gait issues. She also had a bump on the back of her head. Her friends convinced her to come to the hospital for further evaluation. On admission, she had a CT of the head without contrast which revealed no bleed. She had a CT of the lumbar and thoracic spine which revealed degenerative changes with no metastases. A CT of the abdomen and pelvis revealed cardiomyopathy as well as history of a right nephrectomy. On February 27, 2017 , she had a CT of the chest which revealed a right hilar mass measuring 5.8 x 4.2 x 8cm. There were a few pulmonary nodules measuring up to 0.3cm A FNA of the mediastinal lymph node was positive for small cell lung cancer. She was scheduled for a CT/PET scan, however she is currently admitted so that has been put on hold. She is referred to us for consideration of radiation therapy for her newly diagnosed lung cancer. Review of Systems - Neurological Neurological: Abnormal Gait Past Patient History - Infectious Disease Hx of Infectious Diseases: None - Past Social History Smoking Status: Former Smoker Alcohol: Occasional - CARDIAC Hx Cardiac Disorders: Yes (cad, aaa) Hx Hypertension: Yes Hx Pacemaker: No Hx Peripheral Vascular Disease: Yes Other/Comment: stent to r leg "to improove blood flow" - PULMONARY Hx Respiratory Disorders: Yes Other/Comment: renal ca with mets to lungs - NEUROLOGICAL Hx Neurological Disorder: Yes Other/Comment: neuropathy both feet c/o tightness - HEENT Hx Cataracts: Yes (b/l cat sx) - RENAL Hx Renal (Kidney) Cancer: Yes Other/Comment: right side nephrectomy - HEMATOLOGICAL/ONCOLOGICAL Hx Cancer: Yes (renal CA with mets to lungs) Hx Metastesis: Yes Other/Comment: pt had r nephrectomy and r lower lobe lobectomy 28 yrs ago was treated with interferon, hemochromatosis post r nephrectomy - MUSCULOSKELETAL/RHEUMATOLOGICAL Hx Musculoskeletal Disorders: Yes (NEUROPATHY/POLYMYALGIA) Hx Arthritis: Yes (rheumatoid arthritis) Hx Falls: Yes (fell 3 weeks ago as per pt hit head) Hx Unsteady Gait: Yes Other/Comment: abd aortic aneurysm - GASTROINTESTINAL Other/Comment: hemochromatosis,post rt nephrectomy polymyalgia rheumatica - PSYCHIATRIC Hx Emotional Abuse: No Hx Physical Abuse: No Hx Substance Use: No - SURGICAL HISTORY Hx Surgeries: Yes Hx Cardiac Catheterization: Yes (ptca w/stent) Hx Cholecystectomy: Yes Hx Coronary Stent: Yes Other/Comment: r subcarinal lymph node sx 03/09/17 results still pending - ANESTHESIA Hx Anesthesia Reactions: No Hx Malignant Hyperthermia: No Meds Allergies/Adverse Reactions: Allergies Allergy/AdvReac Type Severity Reaction Status Date / Time No Known Allergies Allergy Verified 03/10/17 13:47 - Medications Medications: Current Medications Aspirin (Ecotrin) 81 mg PO DAILY [facility] Last Admin: 03/12/17 09:39 Dose: 81 mg Folic Acid (Folic Acid) 1 mg PO DAILY [facility] Last Admin: 03/12/17 09:40 Dose: 1 mg Magnesium Oxide (Mag-Ox) 400 mg PO BID [facility] Methotrexate (Methotrexate) 2.5 mg PO QWK [facility] Metoprolol Tartrate (Lopressor) 25 mg PO DAILY [facility] Last Admin: 03/12/17 09:39 Dose: 25 mg Physical Exam - Head Exam Head Exam: NORMAL INSPECTION - Eye Exam Eye Exam: EOMI - ENT Exam ENT Exam: Mucous Membranes Moist - Neck Exam Neck exam: Positive for: Lymphadenopathy Additional comments: right SCV lymphadenopathy - Respiratory Exam Respiratory Exam: Clear to Auscultation Bilateral - Cardiovascular Exam Cardiovascular Exam: REGULAR RHYTHM - GI/Abdominal Exam GI & Abdominal Exam: Normal Bowel Sounds - Neurological Exam Neurological exam: CN II-XII Intact, Oriented x3 Results - Vital Signs Recent Vital Signs: Last Vital Signs Temp 97.9 F 03/12/17 08:33 Pulse 96 H 03/12/17 09:39 Resp 20 03/12/17 08:33 BP 142/82 03/12/17 09:39 Pulse Ox 98 03/12/17 08:33 - Labs Result Diagrams: 03/12/17 06:10 03/12/17 06:10 Labs: Laboratory Results - last 24 hr 03/11/17 03/12/17 03/12/17 15:25 06:10 06:10 WBC 5.1 RBC 3.08 L Hgb 10.1 L Hct 29.4 L MCV 95.5 D MCH 32.8 MCHC 34.4 RDW 13.4 Plt Count 245 MPV 9.5 Gran % 76.4 H Lymph % (Auto) 12.6 L [place] % (Auto) 10.0 H Eos % (Auto) 0.8 L Baso % (Auto) 0.2 Gran # 3.89 Lymph # 0.6 L Cross # 0.5 Eos # 0.0 Baso # 0.01 Sodium 126 L 138 Potassium 3.7 4.8 Chloride 94 L 101 Carbon Dioxide 23 25 Anion Gap 13 17 BUN 12 10 Creatinine 0.6 0.6 Est GFR ( Amer) > 60 > 60 Est GFR (Non-Af Amer) > 60 > 60 Random Glucose 121 H 99 Calcium 9.0 9.5 Magnesium Total Bilirubin 0.6 AST 27 ALT 22 Alkaline Phosphatase 66 Total Protein 6.1 Albumin 3.5 Globulin 2.7 Albumin/Globulin Ratio 1.3 03/12/17 06:30 WBC RBC Hgb Hct MCV MCH MCHC RDW Plt Count MPV Gran % Lymph % (Auto) [place] % (Auto) Eos % (Auto) Baso % (Auto) Gran # Lymph # Cross # Eos # Baso # Sodium Potassium Chloride Carbon Dioxide Anion Gap BUN Creatinine Est GFR ( Amer) Est GFR (Non-Af Amer) Random Glucose Calcium Magnesium 1.7 Total Bilirubin AST ALT Alkaline Phosphatase Total Protein Albumin Globulin Albumin/Globulin Ratio Assessment & Plan - Assessment and Plan (Free Text) Assessment: Ms Jason is a 77 year old female with a newly diagnosed right small cell lung cancer. She will need a CT/PET scan for staging purposes We would recommend a MRI of the brain to rule out metastases. If she has limited stage disease, we would concur that she would benefit from chemoradiation. We spoke to her about the radiation therapy including the risks and benefits. Informed consent was obtained. She reportedly is getting discharged today. We will coordinate her simulation with her PET, and will order her MRI as an outpatient. We will also finalize a plan with you.
[2017-03-12 16:59] VITALS: BP 140/81; PULSE 61; RESP 19; O2SAT 97
[2017-03-12] MEDS ORDERED: Magnesium Oxide 400 mg Tab UD PO SCH (18:00)
--- NOTE | 2017-03-12 20:01 | CP.PCM.DIS ---
Provider - Provider Date of Admission: 03/10/17 16:13 Attending physician: Luis Zafar MD Primary care physician: Tania Lind MD Consults: Heme/Onc - Dr. Lind Nephrology - Dr. Mcpherson IR - Dr. Yee Radiation Oncology - Dr. Witt Time Spent in preparation of Discharge (in minutes): 35 Hospital Course - Lab Results Lab Results: Micro Results 03/11/17 07:14 Synovial Fluid Gram Stain - Preliminary 03/11/17 07:14 Synovial Fluid Body Fluid Culture - Preliminary NO GROWTH AFTER 24 HOURS Most Recent Lab Values WBC 5.1 10^3/ul (4.5-11.0) 03/12/17 06:10 RBC 3.08 10^6/uL (3.5-6.1) L 03/12/17 06:10 Hgb 10.1 g/dL (12.0-16.0) L 03/12/17 06:10 Hct 29.4 % (36.0-48.0) L 03/12/17 06:10 MCV 95.5 fl (80.0-105.0) D 03/12/17 06:10 MCH 32.8 pg (25.0-35.0) 03/12/17 06:10 MCHC 34.4 g/dl (31.0-37.0) 03/12/17 06:10 RDW 13.4 % (11.5-14.5) 03/12/17 06:10 Plt Count 245 10^3/uL (120.0-450.0) 03/12/17 06:10 MPV 9.5 fl (7.0-11.0) 03/12/17 06:10 Gran % 76.4 % (50.0-68.0) H 03/12/17 06:10 Lymph % (Auto) 12.6 % (22.0-35.0) L 03/12/17 06:10 [place] % (Auto) 10.0 % (1.0-6.0) H 03/12/17 06:10 Eos % (Auto) 0.8 % (1.5-5.0) L 03/12/17 06:10 Baso % (Auto) 0.2 % (0.0-3.0) 03/12/17 06:10 Gran # 3.89 (1.4-6.5) 03/12/17 06:10 Lymph # 0.6 (1.2-3.4) L 03/12/17 06:10 [place] # 0.5 (0.1-0.6) 03/12/17 06:10 Eos # 0.0 (0.0-0.7) 03/12/17 06:10 Baso # 0.01 K/mm3 (0.0-2.0) 03/12/17 06:10 Neutrophils % (Manual) 91 % (50.0-70.0) H 03/10/17 15:13 Lymphocytes % (Manual) 4 % (22.0-35.0) L 03/10/17 15:13 Monocytes % (Manual) 5 % (1.0-6.0) 03/10/17 15:13 Platelet Evaluation Normal (NORMAL) 03/10/17 15:13 PT 11.8 Seconds (9.9-11.8) 03/10/17 15:13 INR 1.09 (0.93-1.08) H 03/10/17 15:13 APTT 29.6 Seconds (23.7-30.8) 03/10/17 15:13 Sodium 138 mmol/L (132-148) 03/12/17 06:10 Potassium 4.8 mmol/L (3.6-5.0) 03/12/17 06:10 Chloride 101 mmol/L (98-107) 03/12/17 06:10 Carbon Dioxide 25 mmol/L (21-33) 03/12/17 06:10 Anion Gap 17 (10-20) 03/12/17 06:10 BUN 10 mg/dL (7-21) 03/12/17 06:10 Creatinine 0.6 mg/dL (0.5-1.4) 03/12/17 06:10 Est GFR ( Amer) > 60 03/12/17 06:10 Est GFR (Non-Af Amer) > 60 03/12/17 06:10 Random Glucose 99 mg/dL (70-110) 03/12/17 06:10 Serum Osmolality 259 mosm/kg (272-300) L 03/11/17 05:30 Uric Acid 3.7 mg/dL (2.5-6.2) 03/11/17 05:30 Calcium 9.5 mg/dL (8.4-10.5) 03/12/17 06:10 Phosphorus 3.0 mg/dL (2.5-4.5) 03/11/17 05:30 Magnesium 1.7 mg/dL (1.7-2.2) 03/12/17 06:30 Total Bilirubin 0.6 mg/dL (0.2-1.3) 03/12/17 06:10 AST 27 U/L (14-36) 03/12/17 06:10 ALT 22 U/L (7-56) 03/12/17 06:10 Alkaline Phosphatase 66 U/L (38-126) 03/12/17 06:10 Lactate Dehydrogenase 525 U/L (333-699) 03/10/17 15:13 Total Creatine Kinase 39 U/L (35-230) 03/10/17 15:13 Troponin I < 0.01 ng/mL 03/10/17 15:13 Total Protein 6.1 g/dL (5.8-8.3) 03/12/17 06:10 Albumin 3.5 g/dL (3.0-4.8) 03/12/17 06:10 Globulin 2.7 gm/dL 03/12/17 06:10 Albumin/Globulin Ratio 1.3 (1.1-1.8) 03/12/17 06:10 Amylase 71 U/L (35-125) 03/10/17 15:13 Lipase 142 U/L (23-300) 03/10/17 15:13 Ur Random Sodium 15 meq/L 03/12/17 14:30 Fluid Type Synovial fluid 03/11/17 07:14 Synovial WBC 05116.0 /uL (0.0-150.0) H 03/11/17 07:14 Synovial RBC 10.0 /uL (0.0-0.0) H 03/11/17 07:14 Synovial Neutrophils 88.7 % (0-0) H 03/11/17 07:14 Synovial Lymphocytes 11.3 % (0-0) H 03/11/17 07:14 Synov Monos/Macrophage TEST NOT PERFORMED 03/11/17 07:14 Synovial Fluid Comment TEST NOT PERFORMED 03/11/17 07:14 - Hospital Course Hospital Course: Patient is a 77yo female with past medical history of hypertension, CAD w/ stent placement, rheumatoid arthritis on methotrexate, 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 Lind. On evaluation in his office, patients sodium was noted to be 118 at which time she was instructed to go to the emergency room. 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 Of note, she underwent an EGD/EUS/FNA of a right subcarinal lymph node on 03/09. The following workup/treatment was done during her hospital course: 1. Hyponatremia -Serum sodium on arrival noted to be 118, which had been within normal limits upon discharge -Treated in the ED with 3% saline -Thought to be secondary to SIADH in etiology -Presently being treated with fluid restriction and samsca per nephrology recommendations -Nephrology consulted - Dr. Mcpherson 2. Hx of RCC with lung mets -Patient is s/p EGD/EUS/FNA of right carinal lymph node on 03/09/[address] 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 Yee) for port-a-cath placement; patient was scheduled for March 18 3. Rheumatoid arthritis -Patient follows up with outpatient city jailer -Currently treated with methotrexate 4. Right Knee pain -Right knee xray revealed no acute fracture or dislocation; small suprapatellar joint effusion -Patient is s/p right knee joint injection by ortho -Synovial fluid sent for analysis; thought to be secondary to pseudogout -Orthopedics consulted - Dr. Duque Patient seen and case discussed with attending, Dr. Lind Disposition: Patient was instructed to follow up with Dr. Lind on March 16 as well as return to the hospital on March 18 for port -a-cath placement by interventional radiology (Dr. Yee). She was also instructed that she will need an outpatient MRI/PET scan done. Patient also instructed to follow up with radiation oncology, Dr. Witt. Patient was agreeable to discharge and understood instructions provided. In regards to her SIADH, patient was instructed to restrict fluid intake to approximately 16oz per day. Discharge Exam - Head Exam Head Exam: NORMAL INSPECTION - Eye Exam Eye Exam: EOMI, PERRL - ENT Exam ENT Exam: Mucous Membranes Moist - Respiratory Exam Respiratory Exam: Clear to PA & Lateral. absent: Rales, Rhonchi, Wheezes - Cardiovascular Exam Cardiovascular Exam: RRR, +S1, +S2. absent: Gallop, Rubs, Systolic Murmur - GI/Abdominal Exam GI & Abdominal Exam: Normal Bowel Sounds. absent: Distended, Firm, Guarding, Rebound - Extremities Exam Extremities exam: normal inspection - Neurological Exam Neurological exam: Alert, CN II-XII Intact, Oriented x3 - Psychiatric Exam Psychiatric exam: Normal Affect, Normal Mood - Skin Skin Exam: Dry, Intact, Normal Color, Warm Discharge Plan - Follow Up Plan Condition: FAIR Disposition: HOME/ ROUTINE Instructions: Hyponatremia (DC), Hyponatremia (GEN) Additional Instructions: 1. Schedule an appointment to see Dr. Lind on March 16. 2. Restrict your fluid intake to approximately 16oz per day. 3. Follow up with your radiation oncologist, Dr. Witt 4. Continue to take your medications as previously directed. 5. Return to the emergency room should your symptoms worsen. Thursday -03/18/17 Report to [facility] same day surgery 1st floor for port-a-cath placement at 8am. They will call the day before appointment to give you instructions. Referrals: Katina Witt MD [Staff Provider] - Tania Lind MD [Primary Care Provider] -
== END 2017-03-12 18:37 | disposition home or self-care (01) | DRG 644 ==
LOC: ED 13:34 → ERH 16:13 → 3RNO 03-11 13:30
PROVIDERS: ADMIT Family Medicine; ATTEND Family Medicine
PROC: 0S9C3ZX Drainage of Right Knee Joint, Percutaneous Approach, Diagnostic (ICD-10-PCS; principal; 2017-03-11)
PROC: 3E0U33Z Introduction of Anti-inflammatory into Joints, Percutaneous Approach (ICD-10-PCS; 2017-03-11)
PROC: 3E0U3BZ Introduction of Anesthetic Agent into Joints, Percutaneous Approach (ICD-10-PCS; 2017-03-11)
DX: E22.2 Syndrome of inappropriate secretion of antidiuretic hormone (principal); C78.00 Secondary malignant neoplasm of unspecified lung; I10 Essential (primary) hypertension; I25.10 Atherosclerotic heart disease of native coronary artery without angina pectoris; M35.3 Polymyalgia rheumatica; M06.4 Inflammatory polyarthropathy; M25.461 Effusion, right knee; M11.261 Other chondrocalcinosis, right knee; M17.11 Unilateral primary osteoarthritis, right knee; E83.42 Hypomagnesemia; I71.4 Abdominal aortic aneurysm, without rupture; Z87.891 Personal history of nicotine dependence; Z95.5 Presence of coronary angioplasty implant and graft; Z85.528 Personal history of other malignant neoplasm of kidney; Z79.82 Long term (current) use of aspirin; Z90.5 Acquired absence of kidney

== ENCOUNTER 2017-03-18 06:39 | Day surgery (SDC) | payer MEDICARE ==
[2017-03-18 07:22] LABS: BASO # 0.01 K/mm3 (0.0-2.0); BASO % 0.2 % (0.0-3.0); EOS # 0.2 (0.0-0.7); EOS % 3.5 % (1.5-5.0); GRAN # 4.63 (1.4-6.5); GRAN % 74.1 % (50.0-68.0); HEMATOCRIT 34.1 % (36.0-48.0); LYMPH # 0.9 (1.2-3.4); LYMPH % 15.1 % (22.0-35.0); MEAN CELL VOLUME 99.1 fl (80.0-105.0); MEAN CORPUSCULAR HEMOGLOBIN 32.6 pg (25.0-35.0); MEAN CORPUSCULAR HGB CONC 32.8 g/dl (31.0-37.0); MEAN PLATELET VOLUME 9.5 fl (7.0-11.0); MONO # 0.4 (0.1-0.6); MONO % 7.1 % (1.0-6.0); RED CELL DISTRIBUTION WIDTH 13.7 % (11.5-14.5); WHITE BLOOD COUNT 6.2 10^3/ul (4.5-11.0)
[2017-03-18 07:35] LABS: INR 1.06 (0.93-1.08)
[2017-03-18 07:39] LABS: ALB/GLOB RATIO 1.4 (1.1-1.8); ALKALINE PHOSPHATASE 70 U/L (38-126); ALT/SGPT 24 U/L (7-56); AST/SGOT 25 U/L (14-36); BILIRUBIN,TOTAL 0.6 mg/dL (0.2-1.3); BLOOD UREA NITROGEN 15 mg/dL (7-21); CALCIUM 9.7 mg/dL (8.4-10.5); CARBON DIOXIDE 23 mmol/L (21-33); CHLORIDE 102 mmol/L (98-107); GFR AFRICAN-AMERICAN > 60; GLUCOSE,RANDOM 104 mg/dL (70-110); POTASSIUM 4.1 mmol/L (3.6-5.0); SODIUM 138 mmol/L (132-148)
[2017-03-18 08:07] VITALS: BMI 23.5
[2017-03-18] MEDS ORDERED: Lidocaine 2% Inj (20ml) ONE (08:49)
[2017-03-18] MEDS ORDERED: Midazolam 2 MG/2 ML VIAL ONE ×2 (08:50→09:25)
[2017-03-18] MEDS ORDERED: Oxycodone/Acetaminophen 5/325 mg Tab PO PRN (09:59)
[2017-03-18] MEDS ORDERED: Sodium Chloride 0.45% 1,000 ML IV SCH (10:00)
[2017-03-18 11:10] VITALS: BP 134/72; PULSE 64; RESP 20; TEMP 97.4; O2SAT 98
--- NOTE | 2017-03-18 23:00 | VASCULAR ---
PROCEDURE: Ultrasound and fluoroscopic right internal jugular venous access port. CLINICAL HISTORY: Metastatic renal cell carcinoma.Venous port for chemotherapy. PHYSICIAN(S): Mario Yee M.D. TECHNIQUE: The relative risks and indications of the procedure were explained to the patient and consent obtained. The patient was placed supine on the arteriogram table and the right neck and chest prepped and draped in the usual sterile fashion. Conscious sedation monitoring was provided throughout the procedure by a nurse. Antibiotics were given prior to the procedure. Under direct ultrasound guidance, the right internal jugular vein was punctured with a micro-puncture set. A 0.035 angled Glidewire was advanced into the IVC. A 4 cm incision was made below the right clavicle and the pocket blunted dissected. A 8 Malay single-lumen catheter, 26 cm long, was advanced to the SVC/RA junction. The catheter was trimmed and attached to the port. The port aspirates and injects easily. The port was placed in the pocket and closed in 2 layers. An access needle was placed. The patient tolerated the procedure well. IMPRESSION: Ultrasound and fluoroscopically placed right internal jugular venous access port.
== END 2017-03-18 11:45 | disposition home or self-care (01) ==
LOC: SDS 06:39
PROVIDERS: ATTEND Radiology Vascular & Interventional Radiology
DX: C64.9 Malignant neoplasm of unspecified kidney, except renal pelvis (principal); I10 Essential (primary) hypertension; I25.10 Atherosclerotic heart disease of native coronary artery without angina pectoris
CPT/HCPCS: 36415; 36561; 76937; 77001; 80053; 85025; 85610; 85730; 99152; 99153; C1769; C1788; J0690; J1644; J2250; J2405; J3010; J7030

== ENCOUNTER 2017-12-29 13:48 | Day surgery (SDC) | payer MEDICARE ==
[2017-12-29 14:03] VITALS: BMI 24.5
[2017-12-29 15:04] LABS: BASO # 0.02 K/mm3 (0.0-2.0); BASO % 0.3 % (0.0-3.0); EOS # 0.1 (0.0-0.7); EOS % 2.3 % (1.5-5.0); GRAN # 4.42 (1.4-6.5); HEMOGLOBIN 12.4 g/dL (12.0-16.0); LYMPH # 0.6 (1.2-3.4); LYMPH % 10.1 % (22.0-35.0); MEAN CELL VOLUME 98.9 fl (80.0-105.0); MEAN CORPUSCULAR HEMOGLOBIN 33.9 pg (25.0-35.0); MEAN CORPUSCULAR HGB CONC 34.3 g/dl (31.0-37.0); MEAN PLATELET VOLUME 9.5 fl (7.0-11.0); MONO # 0.6 (0.1-0.6); MONO % 10.3 % (1.0-6.0); RBC 3.66 10^6/uL (3.5-6.1); RED CELL DISTRIBUTION WIDTH 14.8 % (11.5-14.5); WHITE BLOOD COUNT 5.7 10^3/ul (4.5-11.0)
--- NOTE | 2017-12-29 15:04 | RAD ---
Date of service: 12/29/2017 HISTORY: shortness of breath COMPARISON: 03/10/2017 FINDINGS: LUNGS: There is an infiltrate or mass in the medial aspect of the right upper lobe. PLEURA: No significant pleural effusion identified, no pneumothorax apparent. CARDIOVASCULAR: Mild cardiomegaly. Aortic tortuosity and calcification OSSEOUS STRUCTURES: No significant abnormalities. VISUALIZED UPPER ABDOMEN: Normal. OTHER FINDINGS: There is a right-sided Port-A-Cath IMPRESSION: There is an infiltrate or mass in the medial aspect of the right upper lobe.
--- NOTE | 2017-12-29 15:09 | ED PDOC ---
Arrival/HPI - History of Present Illness Time/Duration: < month Symptom Course: Intermittent Activities at Onset: Light Context: Home <Denver Banegas - Last Filed: 12/29/17 15:16> <Joselin Sanchez - Last Filed: 12/29/17 17:44> - General Chief Complaint: Cough, Cold, Congestion Time Seen by Provider: 12/29/17 14:02 - History of Present Illness Narrative History of Present Illness (Text): 12/29/17 14:57 This is a 77 year old female with PMH of renal cell carcinoma s/p right nephrectomy with lung mets, CAD with stent placement, polymyalgia rheumatica, rheumatoid arthritis, aortic aneurysm, hyponatremia, and hypertension presenting to the ER for SOB and nonproductive cough for one month. Patient states she can not lie flat and needs a few pillows to sleep due to the symptoms. SOB is intermittent and progressively getting worse. She denies CP, fevers, dizziness, nausea, vomiting, abdominal pain, headaches, chills, recent travel and recent sickness. She is compliant with her medications. She follows her oncologist, Dr. Lind, regularly with the previous visit occurring last week. PCP: Dr. Pandey Oncology: Dr. Adams (Denver Banegas) Past Medical History - Provider Review Nursing Documentation Reviewed: Yes - Infectious Disease Hx of Infectious Diseases: None - Reproductive Menopause: Yes - Cardiac Hx Pacemaker: No - Pulmonary Hx Respiratory Disorders: Yes Other/Comment: renal ca with mets to lungs - Neurological Hx Paralysis: No - HEENT Hx Cataracts: Yes (b/l cat sx) - Renal Hx Renal Cancer: Yes Other/Comment: right side nephrectomy - Hematological/Oncological Hx Blood Transfusions: No - Integumentary Other/Comment: r great toe slight redness and dry skin from shoes x 1 wk as per pt, red skin discoloration rle, eccymosis and dry skin both arms, r ankle brown dry skin patch, toes 2 and 3 of right ft small dry red rounc wounds 0.1cm round - Musculoskeletal/Rheumatological Hx Musculoskeletal Disorders: Yes (NEUROPATHY/POLYMYALGIA) - Gastrointestinal Other/Comment: hemochromatosis,post rt nephrectomy polymyalgia rheumatica - Psychiatric Hx Emotional Abuse: No Hx Physical Abuse: No Hx Substance Use: No - Surgical History Hx Cardiac Catheterization: Yes (ptca w/stent) Hx Cholecystectomy: Yes Hx Coronary Stent: Yes Other/Comment: r subcarinal lymph node sx 03/09/17 results still pending - Anesthesia Hx Anesthesia Reactions: No Hx Malignant Hyperthermia: No - Suicidal Assessment Feels Threatened In Home Enviroment: No <Denver Banegas - Last Filed: 12/29/17 15:16> Family/Social History - Physician Review Nursing Documentation Reviewed: Yes Family/Social History: Unknown Family HX Smoking Status: Former Smoker Hx Alcohol Use: Yes (cocktail daily) Hx Substance Use: No <BassamDenver - Last Filed: 12/29/17 15:16> Allergies/Home Meds <BassamSwatiradha - Last Filed: 12/29/17 15:16> <Joselin Sanchez - Last Filed: 12/29/17 17:44> Allergies/Adverse Reactions: Allergies No Known Allergies Allergy (Verified 03/10/17 13:47) Home Medications: Home Meds Medication Instructions Recorded Confirmed Levocetirizine Dihydrochloride 5 mg PO DAILY 04/07/17 12/29/17 [Xyzal] Magnesium Oxide [Magnesium] 250 mg PO DAILY 05/22/17 12/29/17 metOLazone [Zaroxolyn] 2.5 mg PO 05/22/17 05/22/17 Montelukast [Singulair] 5 mg PO DAILY 12/29/17 12/29/17 Prednisone [Aretha] 5 mg PO DAILY 12/29/17 12/29/17 Vit B12 1000 1,000 mcg PO DAILY 12/29/17 12/29/17 Vit B6 100 100 mg PO DAILY 12/29/17 12/29/17 Review of Systems - Physician Review All systems were reviewed & negative as marked: Yes - Review of Systems Constitutional: Normal. absent: Fevers Eyes: Normal ENT: Normal Respiratory: SOB, Cough. absent: Sputum, Wheezing Cardiovascular: Normal. absent: Chest Pain Gastrointestinal: Normal. absent: Abdominal Pain, Diarrhea, Vomiting, Hematochezia, Hematemesis Genitourinary Female: Normal. absent: Dysuria Skin: Normal Neurological: Normal. absent: Headache Endocrine: Normal Psychiatric: Normal <StevealbinoDenver - Last Filed: 12/29/17 15:16> Physical Exam Vital Signs Reviewed: Yes Temperature: Afebrile Blood Pressure: Hypertensive Pulse: Tachycardic Respiratory Rate: Normal Appearance: Positive for: Well-Appearing, Non-Toxic, Comfortable Pain Distress: None Mental Status: Positive for: Alert and Oriented X 3 - Systems Exam Head: Present: Atraumatic, Normocephalic Pupils: Present: PERRL Extroacular Muscles: Present: EOMI Conjunctiva: Present: Normal Mouth: Present: Moist Mucous Membranes Neck: Present: Normal Range of Motion Respiratory/Chest: Present: Good Air Exchange, Other (minimal wheezing appreciated in the right lower base). No: Respiratory Distress, Accessory Muscle Use, Tachypneic Cardiovascular: Present: Regular Rate and Rhythm, Normal S1, S2. No: Murmurs Abdomen: Present: Normal Bowel Sounds. No: Tenderness, Distention, Peritoneal Signs Back: Present: Normal Inspection Upper Extremity: Present: Normal Inspection. No: Cyanosis, Edema Lower Extremity: Present: Normal Inspection. No: Edema Neurological: Present: Speech Normal, Motor Func Grossly Intact, Normal Sensory Function Skin: Present: Warm, Dry, Normal Color. No: Rashes Psychiatric: Present: Alert, Oriented x 3, Normal Insight, Normal Concentration <Denver Banegas - Last Filed: 12/29/17 15:16> Vital Signs Temp Pulse Resp BP Pulse Ox 12/29/17 15:54 65 18 140/75 94 L 12/29/17 14:26 97.8 F 80 17 157/91 H 95 12/29/17 14:01 98 F 102 H 18 159/104 H 95 Medical Decision Making <Denver Banegas - Last Filed: 12/29/17 15:16> <Joselin Sanchez - Last Filed: 12/29/17 17:44> ED Course and Treatment: 12/29/17 15:12 Impression: This is a 77 year old female with PMH of renal cell carcinoma s/p right nephrectomy with lung mets and CAD with stent placement presenting to the ER for SOB and nonproductive cough for one month. Differential not limited to: Pleural effusion Vs. Lung cancer metastasis, vs CHF Plan: Spoke to Dr. Lind who is aware of patient status in the ER. Patient to get pleural fluid drainage by Dr. Yee today. Progress: 12/29/17 15:15 Patient resting comfortably, no acute distress and afebrile. 12/29/17 15:16 Chest Xray: There is a mass or infiltrate in the medial aspect of the right upper lobe. (Denver Banegas) 12/29/17 17:38 Patient seen by resident and then evaluated by me. Agree with above physical exam. Patient is a 77 y/o F with metastatic cancer, with weeks long history of worsening shortness of breath. Patient was sent in by Dr. Lind for biopsy of omental mass and thoracentesis by Dr. Yee. Dr. Lind reports that patient can be discharged after procedure by Dr. Yee. Dr. Yee to take patient to same day surgery., 12/29/17 17:44 (Joselin Sanchez) - Lab Interpretations Lab Results: 12/29/17 14:30 12/29/17 14:30 Lab Results 12/29/17 14:30: PT 11.7, INR 1.03, APTT 57.3 H 12/29/17 14:30: WBC 5.7 D, RBC 3.66, Hgb 12.4 D, Hct 36.2, MCV 98.9 D, MCH 33.9, MCHC 34.3, RDW 14.8 H, Plt Count 170, MPV 9.5, Gran % 77.0 H, Lymph % ( Auto) 10.1 L, [place] % (Auto) 10.3 H, Eos % (Auto) 2.3, Baso % (Auto) 0.3, Gran # 4.42, Lymph # (Auto) 0.6 L, [place] # (Auto) 0.6, Eos # (Auto) 0.1, Baso # (Auto) 0.02 12/29/17 14:30: Sodium 139, Potassium 3.7, Chloride 103, Carbon Dioxide 26, Anion Gap 14, BUN 21, Creatinine 0.7, Est GFR ( Amer) > 60, Est GFR (Non- Af Amer) > 60, Random Glucose 84, Calcium 9.6, Phosphorus 3.8, Magnesium 1.6 L, Total Bilirubin 0.8, AST 26, ALT 29, Alkaline Phosphatase 79, Troponin I < 0.01 , NT-Pro-B Natriuret Pep 2010 H, Total Protein 6.9, Albumin 3.9, Globulin 3.0, Albumin/Globulin Ratio 1.3 - RAD Interpretation Radiology Orders: 12/29/17 14:37 CHEST PORTABLE [RAD] Stat 12/29/17 15:41 CT GUIDED PELVIS BX BUNDLE [CT] Routine THORACENTESIS [US] Stat - PA / DATA ANALYTICS DEVELOPER / Resident Statement MD/DO has reviewed & agrees with the documentation as recorded. MD/DO has examined the patient and agrees with the treatment plan. <Denver Banegas - Last Filed: 12/29/17 15:16> Disposition/Present on Arrival - Present on Arrival History of DVT/PE: No History of Uncontrolled Diabetes: No Urinary Catheter: No History of Decub. Ulcer: No History Surgical Site Infection Following: None <Denver Banegas - Last Filed: 12/29/17 15:16> - Present on Arrival Any Indicators Present on Arrival: No - Disposition Have Diagnosis and Disposition been Completed?: Yes Disposition Time: 17:43 <Joselin Sanchez - Last Filed: 12/29/17 17:44> - Disposition Diagnosis: Metastatic cancer Disposition: HOSPITALIZED Condition: FAIR Forms: [employer] ([place])
[2017-12-29 15:14] LABS: ALB/GLOB RATIO 1.3 (1.1-1.8); ALBUMIN 3.9 g/dL (3.0-4.8); ALT/SGPT 29 U/L (7-56); AST/SGOT 26 U/L (14-36); BLOOD UREA NITROGEN 21 mg/dL (7-21); CALCIUM 9.6 mg/dL (8.4-10.5); GFR AFRICAN-AMERICAN > 60; GFR NON-AFRICAN AMERICAN > 60; INR 1.03 (0.93-1.08); PARTIAL THROMBOPLASTIN TIME 57.3 Seconds (25.1-36.5); PROTHROMBIN TIME 11.7 SECONDS (9.4-12.5)
[2017-12-29 15:25] LABS: B-TYPE NATRIURETIC PEPTIDE 2010 pg/mL (0-450); TROPONIN I < 0.01 ng/mL
[2017-12-29] MEDS ORDERED: Lidocaine 1% Inj (20ml) ONE (17:19)
[2017-12-29] MEDS ORDERED: Midazolam 2 MG/2 ML VIAL ONE (17:50)
[2017-12-29] MEDS ORDERED: Oxycodone/Acetaminophen 5/325 mg Tab PO PRN (18:47)
[2017-12-29] MEDS ORDERED: Sodium Chloride 0.45% 1,000 ML IV SCH (19:00)
[2017-12-29 19:15] VITALS: TEMP 97.6
[2017-12-29 19:29] VITALS: RESP 18
[2017-12-29] MEDS ORDERED: Midazolam 2 MG/2 ML VIAL IVP ONE (19:30)
--- NOTE | 2017-12-29 20:03 | US ---
PROCEDURE: Ultrasound guided right thoracentesis. CLINICAL HISTORY: Small-cell carcinoma. New right pleural effusion. Shortness of breath. Needs diagnostic and therapeutic thoracentesis PHYSICIAN(S): Mario Yee MD. TECHNIQUE: The relative risks and indications of the procedure were explained to the patient and consent obtained. The patient was placed in a sitting position on the stretcher and sonography of the right chest performed. This revealed a small to moderate rightpleural effusion. A right posterolateral intercostal approach was selected and the area prepped and draped usual sterile fashion. 1% Xylocaine was used to anesthetize the skin and soft tissues. A 7 Vietnamese thoracentesis catheter was trocared into the right pleural cavity and 800 ccof clear straw-colored fluid aspirated. A cytology specimen was sent. IMPRESSION: 1. Ultrasound guided right thoracentesis. 800 cc of clear, straw-colored fluid were aspirated. A cytology specimen was sent
--- NOTE | 2017-12-29 20:27 | CT ---
PROCEDURE: CT guided omental biopsy. HISTORY: Small cell CA. Previous renal cell carcinoma. Omental masses suspicious for carcinomatosis. PHYSICIAN(S): Maroi Yee MD. TECHNIQUE: The relative risks and indications of the procedure were explained to the patient and consent obtained. The patient was placed supine on the CT scanner and preliminary images through the upper abdomen obtained. Conscious sedation and monitoring were provided throughout the procedure by a nurse. There is nodular thickening of the omentum anterior to the stomach.. A oblique subxiphoid approach was selected and the area prepped and draped in the usual sterile fashion. 1% Xylocaine was used to anesthetize the skin and soft tissues. A 17-gauge guiding needle was advanced into the nodular thickening in the omentum anterior to the stomach. Its position was confirmed with CT. Using coaxial technique, multiple core biopsies were obtained. The postprocedure images show no evidence of significant hemorrhage. IMPRESSION: 1. CT-guided omental biopsy as described above.
[2017-12-29 20:45] VITALS: BP 141/86; PULSE 81; O2SAT 94
--- NOTE | 2017-12-30 10:25 | RAD ---
Date of service: 12/29/2017 HISTORY: rt thora COMPARISON: 12/29/2017 FINDINGS: LUNGS: There is no evidence of pneumothorax following thoracentesis. PLEURA: No significant pleural effusion identified, no pneumothorax apparent. CARDIOVASCULAR: Normal. OSSEOUS STRUCTURES: No significant abnormalities. VISUALIZED UPPER ABDOMEN: Normal. OTHER FINDINGS: None. IMPRESSION: No evidence of pneumothorax following thoracentesis
--- NOTE | 2017-12-30 12:40 | CARD ---
APPROVED REPORT Date of service: 12/29/2017 EKG Measurement Heart [id number] <Conclusion> Normal sinus rhythm Right bundle branch block Abnormal ECG
== END 2017-12-29 21:46 | disposition home or self-care (01) ==
LOC: ED 13:48 → SDS 17:34 → 5RNO 20:04 → SDS 21:46
PROVIDERS: ATTEND Radiology Vascular & Interventional Radiology
DX: C78.00 Secondary malignant neoplasm of unspecified lung (principal); E87.1 Hypo-osmolality and hyponatremia; I10 Essential (primary) hypertension; I25.10 Atherosclerotic heart disease of native coronary artery without angina pectoris; I45.10 Unspecified right bundle-branch block; J90 Pleural effusion, not elsewhere classified; M06.9 Rheumatoid arthritis, unspecified; M35.3 Polymyalgia rheumatica; Z85.528 Personal history of other malignant neoplasm of kidney; Z87.891 Personal history of nicotine dependence; Z90.5 Acquired absence of kidney; Z95.5 Presence of coronary angioplasty implant and graft
CPT/HCPCS: 32555 ×2; 49180; 71045; 77012; 80053; 83735; 83880; 84100; 84484; 85025; 85610; 85730; 88108; 88305; 93005; 99285; J2250; J2405; J3010

== ENCOUNTER 2018-03-25 15:49 | Inpatient (IN) | payer MEDICARE ==
[2018-03-25 15:53] VITALS: BMI 24.5
[2018-03-25 16:55] LABS: IRON 91 ug/dL (45-180)
[2018-03-25 17:04] LABS: % IRON SATURATION 37 % (20-55); TOTAL IRON BINDING CAPACITY 244 ug/dL (265-497)
[2018-03-25 17:08] LABS: TROPONIN I < 0.01 ng/mL
[2018-03-25 17:20] LABS: BASO # 0.45 K/mm3 (0.0-2.0); BASO % 3.5 % (0.0-3.0); EOS % 0.3 % (1.5-5.0); GRAN # 10.25 (1.4-6.5); GRAN % 78.5 % (50.0-68.0); HEMOGLOBIN 10.7 g/dL (12.0-16.0); LYMPH # 1.8 (1.2-3.4); LYMPH % 13.7 % (22.0-35.0); MEAN CELL VOLUME 98.7 fl (80.0-105.0); MEAN CORPUSCULAR HEMOGLOBIN 33.8 pg (25.0-35.0); MEAN CORPUSCULAR HGB CONC 34.2 g/dl (31.0-37.0); MEAN PLATELET VOLUME 12.7 fl (7.0-11.0); MONO # 0.5 (0.1-0.6); PLATELET COUNT 65 10^3/uL (120.0-450.0); RBC 3.17 10^6/uL (3.5-6.1); RED CELL DISTRIBUTION WIDTH 12.9 % (11.5-14.5)
[2018-03-25 17:25] LABS: BAND 1 % (0-2); LYMPHOCYTE 15 % (22.0-35.0); METAMYELOCYTE 11 %; MONOCYTE 6 % (1.0-6.0); NEUTROPHIL 67 % (50.0-70.0); PLATELET ESTIMATE LOW (NORMAL)
[2018-03-25 17:26] LABS: ALB/GLOB RATIO 1.2 (1.1-1.8); ALBUMIN 3.3 g/dL (3.0-4.8); ALT/SGPT 67 U/L (7-56); AST/SGOT 47 U/L (14-36); BLOOD UREA NITROGEN 28 mg/dL (7-21); CALCIUM 9.2 mg/dL (8.4-10.5); GFR NON-AFRICAN AMERICAN 53; URIC ACID 8.5 mg/dL (2.5-6.2)
--- NOTE | 2018-03-25 17:54 | ED PDOC ---
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 Lind's office for evaluation of shortness of breath today. Reportedly patient had O2 stat of 80-85% room air resolved to 100% after Oxygen treatment at Dr. Lind's office and was subsequently referred to the Emergency Department for evaluation. Upon arrival to the Emergency Department, patient informs dyspnea on exertion since 2 weeks. Patient states the ongoing symptoms usually resolve with rest but exacerbate with walking. Patient reports associated non-productive cough unfamiliar to symptoms in the past. Patient denies any other somatic complaints. Patient denies any fever, chills, nausea, vomiting, diarrhea, abdominal pain, chest pain, neck pain, back pain, or any other complaints. PMD: Dr. Pandey Oncologist: Dr. Lind Time/Duration: > week (2 weeks) Symptom Onset: Gradual Symptom Course: Unchanged Activities at Onset: Light Context: Home Past Medical History - Provider Review Nursing Documentation Reviewed: Yes - Infectious Disease Hx of Infectious Diseases: None - Reproductive Menopause: Yes - Cardiac Hx Pacemaker: No - Pulmonary Hx Respiratory Disorders: Yes Other/Comment: renal ca with mets to lungs - Neurological Hx Paralysis: No - HEENT Hx Cataracts: Yes (b/l cat sx) - Renal Hx Renal Cancer: Yes Other/Comment: right side nephrectomy - Hematological/Oncological Hx Blood Transfusions: No - Integumentary Other/Comment: r great toe slight redness and dry skin from shoes x 1 wk as per pt, red skin discoloration rle, eccymosis and dry skin both arms, r ankle brown dry skin patch, toes 2 and 3 of right ft small dry red rounc wounds 0.1cm round - Musculoskeletal/Rheumatological Hx Musculoskeletal Disorders: Yes (NEUROPATHY/POLYMYALGIA) - Gastrointestinal Other/Comment: hemochromatosis,post rt nephrectomy polymyalgia rheumatica - Psychiatric Hx Emotional Abuse: No Hx Physical Abuse: No Hx Substance Use: No - Surgical History Hx Cardiac Catheterization: Yes (ptca w/stent) Hx Cholecystectomy: Yes Hx Coronary Stent: Yes Other/Comment: r subcarinal lymph node sx 03/09/17 results still pending - Anesthesia Hx Anesthesia Reactions: No Hx Malignant Hyperthermia: No - Suicidal Assessment Feels Threatened In Home Enviroment: No Family/Social History - Physician Review Nursing Documentation Reviewed: Yes Family/Social History: No Known Family HX Smoking Status: Former Smoker Hx Alcohol Use: Yes (cocktail daily) Hx Substance Use: No Allergies/Home Meds Allergies/Adverse Reactions: Allergies No Known Allergies Allergy (Verified 03/10/17 13:47) Home Medications: Home Meds Medication Instructions Recorded Confirmed Apixaban [Eliquis] 1 tab PO DAILY 03/25/18 03/25/18 Cholecalciferol [Vitamin D 1000 IU] 1,000 mg PO DAILY 03/25/18 03/25/18 Levocetirizine Dihydrochloride 1 tab PO DAILY 03/25/18 03/25/18 [Xyzal] Magnesium 1 tab PO DAILY 03/25/18 03/25/18 Montelukast [Singulair] 1 tab PO DAILY 03/25/18 03/25/18 Prednisone [Aretha] 1 tab PO DAILY 03/25/18 03/25/18 Pyridoxine [Vitamin B6 50 mg Tab] 100 mg PO DAILY 03/25/18 03/25/18 metOLazone [Zaroxolyn] 1 tab PO DAILY 03/25/18 03/25/18 Review of Systems - Physician Review All systems were reviewed & negative as marked: Yes - Review of Systems Constitutional: absent: Fevers Respiratory: SOB, Cough Cardiovascular: GONZALEZ. absent: Chest Pain Gastrointestinal: absent: Abdominal Pain, Diarrhea, Nausea, Vomiting Musculoskeletal: absent: Back Pain, Neck Pain Neurological: absent: Headache, Dizziness Physical Exam Vital Signs Reviewed: Yes Vital Signs Temp Pulse Resp BP Pulse Ox 03/25/18 15:59 98.5 F 80 20 139/74 97 Temperature: Afebrile Blood Pressure: Normal Pulse: Regular Respiratory Rate: Normal Appearance: Positive for: Non-Toxic, Comfortable, Other (Pale) Pain Distress: None Mental Status: Positive for: Alert and Oriented X 3 - Systems Exam Head: Present: Atraumatic, Normocephalic Pupils: Present: PERRL Extroacular Muscles: Present: EOMI Conjunctiva: Present: Other (Palor conjunctiva ). No: Icteric Mouth: Present: Moist Mucous Membranes Neck: Present: Normal Range of Motion Respiratory/Chest: Present: Decreased Breath Sounds (right lowe lobe), Other (port noted to right upper chest wall. ). No: Respiratory Distress, Accessory Muscle Use, Wheezes, Rales, Rhonchi Cardiovascular: Present: Regular Rate and Rhythm, Normal S1, S2. No: Murmurs Abdomen: No: Tenderness, Distention, Peritoneal Signs Back: Present: Normal Inspection Upper Extremity: Present: Normal Inspection. No: Cyanosis, Edema Lower Extremity: Present: Normal Inspection. No: Edema Neurological: Present: GCS=15, CN II-XII Intact, Speech Normal Skin: Present: Warm, Dry, Normal Color. No: Rashes Psychiatric: Present: Alert, Oriented x 3, Normal Insight, Normal Concentration Medical Decision Making ED Course and Treatment: 03/25/18 17:23 Impression: 78 year old female presents to the Emergency Department for evaluation of dyspnea on exertion. Plan: -- CTA -- Labs -- Reassess and disposition Prior Visits: Notes and results from previous visits were reviewed. Progress Notes: 20:00 Patient updated re lab results, results pending for CT. Patient states she is comfortable and has no complaints. 20:25 Dr. Zafar called, states patient to be admitted to him, he placed orders in the chart and he is aware CT is pending. 03/25/18 20:50 Name: ARGENTINA EDSONJA Exam Date: Mar 25, 2018 6:51:50 PM EDT Modality Type: CT\SD Description: CTA CHEST FOR PE Gender: F Laterality: Not applicable : 38 Referring Physician: SANDOVAL FAY IMPRESSION: 1. No evidence of pulmonary embolism. 2. Very large right pleural effusion. 3. Right suprahilar consolidation, underlying malignancy is not excluded. 4. Right lower lobe atelectasis present. 5. The thoracic aorta is aneurysmal as above. There is minimal focal displacement of intimal plaque involving descending thoracic aorta which is best seen on sagittal sequence image 121 series 602. This may represent a nidus for aortic dissection although there is no lyndon aortic dissection noted at this time. 6. There is evidence of severe mural thrombus involving upper abdominal aorta. Electronically signed on Mar 25, 2018 8:46:10 PM EDT by: Jakub Alcala M.D., MBA Certified By [facility] [employer] [facility] Fellowship Trained MRI and CT Specialist 03/25/18 21:[address] d/w Dr. Zafar who states pt has a h/o thoracic aneurysm. Results of CT d/w patient. - Lab Interpretations Lab Results: 03/25/18 16:33 03/25/18 16:33 Lab Results 03/25/18 16:33: WBC 13.0 H D, RBC 3.17 L, Hgb 10.7 L, Hct 31.3 L, MCV 98.7, MCH 33.8, MCHC 34.2, RDW 12.9, Plt Count 65 L, MPV 12.7 H, Gran % 78.5 H, Lymph % (Auto) 13.7 L, [place] % (Auto) 4.0, Eos % (Auto) 0.3 L, Baso % (Auto) 3.5 H, Gran # 10.25 H, Lymph # (Auto) 1.8, [place] # (Auto) 0.5, Eos # (Auto) 0.0, Baso # (Auto) 0.45, Neutrophils % (Manual) 67, Band Neutrophils % 1, Lymphocytes % (Manual) 15 L, Monocytes % (Manual) 6, Metamyelocytes % 11, Platelet Evaluation Low 03/25/18 16:33: Iron 91, TIBC 244 L, % Saturation 37 03/25/18 16:33: Manual Plt Count 87 L 03/25/18 16:33: Sodium 137, Potassium 5.2 H, Chloride 99, Carbon Dioxide 32, Anion Gap 12, BUN 28 H, Creatinine 1.0, Est GFR ( Amer) > 60, Est GFR (Non-Af Amer) 53, Random Glucose 117 H, Uric Acid 8.5 H, Calcium 9.2, Phosphorus 4.5, Magnesium 1.3 L, Total Bilirubin 0.6, AST 47 H D, ALT 67 H, Alkaline Phosphatase 94, Lactate Dehydrogenase 843 H, Total Creatine Kinase < 20 L, Troponin I < 0.01, Total Protein 6.2, Albumin 3.3, Globulin 2.9, Albumin/Globulin Ratio 1.2 - Scribe Statement The provider has reviewed the documentation as recorded by the Scribe Eliot Stearns. All medical record entries made by the Scribe were at my direction and personally dictated by me. I have reviewed the chart and agree that the record accurately reflects my personal performance of the history, physical exam, medical decision making, and the department course for this patient. I have also personally directed, reviewed, and agree with the discharge instructions and disposition. Disposition/Present on Arrival - Present on Arrival Any Indicators Present on Arrival: No History of DVT/PE: No History of Uncontrolled Diabetes: No Urinary Catheter: No History of Decub. Ulcer: No History Surgical Site Infection Following: None - Disposition Have Diagnosis and Disposition been Completed?: Yes Diagnosis: Pleural effusion, Dyspnea, Hypoxia Disposition: HOSPITALIZED Disposition Time: 20:28 Patient Plan: Admission Patient Problems: Current Active Problems Problem Status Onset Pleural effusion Acute Dyspnea Acute Hypoxia Acute Condition: FAIR Referrals: Cal Pandey MD [Primary Care Provider] - Follow up with primary Forms: [employer] (Norwegian)
[2018-03-25] MEDS ORDERED: Iohexol 350 MG/100 ML VIAL ONE (18:38)
[2018-03-25] MEDS ORDERED: oxyCODONE 5 mg Immediate Release Tab PO PRN (20:03)
[2018-03-25] MEDS: Levalbuterol 0.63 MG/3 ML Inhal Soln UD IH SCH (21:06)
[2018-03-25] MEDS ORDERED: LEVOCETIRIZINE 5 MG PO SCH (22:00)
[2018-03-26 07:10] LABS: BASO # 0.34 K/mm3 (0.0-2.0); BASO % 2.6 % (0.0-3.0); EOS % 0.2 % (1.5-5.0); GRAN # 10.42 (1.4-6.5); GRAN % 79.6 % (50.0-68.0); HEMOGLOBIN 9.8 g/dL (12.0-16.0); LYMPH # 1.2 (1.2-3.4); LYMPH % 9.2 % (22.0-35.0); MEAN CELL VOLUME 99.7 fl (80.0-105.0); MEAN CORPUSCULAR HEMOGLOBIN 33.7 pg (25.0-35.0); MEAN CORPUSCULAR HGB CONC 33.8 g/dl (31.0-37.0); MEAN PLATELET VOLUME 11.5 fl (7.0-11.0); MONO # 1.1 (0.1-0.6); MONO % 8.4 % (1.0-6.0); RBC 2.91 10^6/uL (3.5-6.1); WHITE BLOOD COUNT 13.1 10^3/ul (4.5-11.0)
[2018-03-26 07:21] LABS: ALB/GLOB RATIO 1.1 (1.1-1.8); ALBUMIN 3.1 g/dL (3.0-4.8); ALT/SGPT 55 U/L (7-56); AST/SGOT 40 U/L (14-36); BLOOD UREA NITROGEN 24 mg/dL (7-21); CALCIUM 8.9 mg/dL (8.4-10.5); GFR NON-AFRICAN AMERICAN > 60
--- NOTE | 2018-03-26 07:46 | HP ---
For Dr. Lind. CHIEF COMPLAINT: Severe dyspnea on exertion. HISTORY OF PRESENT ILLNESS: The patient is a 78-year-old female admitted by the emergency room earlier today for increasing shortness of breath with minimal exertion, worsening over the past week with occasional cough. 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 She is now saturating at 100% on 4 liters nasal cannula and is in no acute distress. PAST MEDICAL HISTORY: Significant for metastatic renal cell CA, status post nephrectomy in the right with metastases to the lung in remission after treatment by Dr. 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 Also more recently, history of DVT for which she was on Eliquis, also recent treatment as per Dr. Lind's protocol with Gemzar-based chemotherapy and Neupogen treatments most recently on 03/22/2018. She also has history of right pleural effusion. ALLERGIES: NO KNOWN ALLERGIES. MEDICATIONS: At this time include metoprolol 50 mg tablet once a day; Ecotrin 81 mg Thursday, Thursday, Thursday; Eliquis 2.5 mg twice a day; magnesium 250 mg twice a day, oxycodone 5 mg every 6 hours p.r.n., levocetirizine at bedtime, Robitussin DM every 6 hours p.r.n., Singulair 10 mg daily, Xopenex inhaler twice a day and p.r.n. FAMILY HISTORY: Noncontributory. SOCIAL HISTORY: Noncontributory. She sees Dr. Pandey, who is her primary doctor. Nonsmoker, non-ethanolic. REVIEW OF SYSTEMS: A 12-point review of systems is done, which was essentially negative to questioning except for items mentioned in the history of present illness as above. PHYSICAL EXAMINATION: VITAL SIGNS: Temperature 98.5, pulse 80, respirations 20, blood pressure 139/74, pulse ox 97% on 4 liters nasal cannula. HEENT: Unremarkable. NECK: Supple. HEART: Regular rate. LUNGS: Decreased breath sounds in the right. ABDOMEN: Soft, nontender. EXTREMITIES: With skin discoloration of the toes noted with dryness of the skin on bilateral arms, second and third toes of the right foot with small dry red skin changes. NEUROLOGICAL: Awake, alert, oriented x3. SKIN: Otherwise warm, dry and clear except as above. LABORATORY DATA: The patient's labs were done, white blood cell count of 13, having been on Neupogen recently; hemoglobin 10.7; hematocrit 31.3; platelet count of 65,000 with the manual count of 87,000. Her chem metabolic panel shows potassium 5.2, BUN 28, uric acid of 8.5, magnesium 1.3, AST 47, ALT 67 with an otherwise normal chem metabolic panel. The patient's CT scan of the chest shows significant pleural effusion on the right to be read by the radiologist, original impression by Dr. Lind. EKG is to be read. ASSESSMENT: For this patient is that of hypoxemia, dyspnea on exertion secondary to pleural effusion on the right with recent treatment for stage IV carcinoma of Mullerian origin, history of small cell carcinoma of the lung, history of renal cell carcinoma, status post nephrectomy, coronary artery disease, peripheral vascular disease, history of deep venous thrombosis, history of aneurysm, degenerative joint disease. PLAN: For this patient, after conversation with Dr. Lind, is to continue present medical regimen. We will hold her Eliquis at this time. However, we will continue the aspirin with consult with Dr. Mario Yee for thoracentesis and PleurX catheter placement as indicated. We will also ask for consult with Dr. Calles, her automatic machines supervisor; Dr. Ivy for evaluation of her hyperkalemia with the patient having been on Samsca in the past. We will also ask for consult with Dr. Love, her makeup artist and we will continue her analgesics as indicated with a manual platelet count to be done in the morning. Her labs will be monitored and she monitored clinically on the remote telemetry bed with prognosis for this patient guarded. This is a complex patient with a comprehensive medically necessary and appropriate visit carried out in excess of 90 minutes [id number] time, the patient was in Dr. Lind's office and then brought to the emergency room with 4 liters nasal cannula oxygen for admission with workup done as above with patient's questions answered to her satisfaction. Luis Zafar MD
[2018-03-26] MEDS ORDERED: Metoprolol Succinate 100 mg XL Tab PO SCH (08:00)
[2018-03-26] MEDS: Levalbuterol 0.63 MG/3 ML Inhal Soln UD IH SCH ×2 (08:18→19:42)
[2018-03-26] MEDS: Metoprolol Succinate 25 mg XL Tab PO SCH (08:34)
[2018-03-26] MEDS: guaiFENesin DM 100 mg-10 mg/5 ml UD PO PRN (08:34)
[2018-03-26] MEDS: Magnesium Oxide 400 mg Tab UD PO SCH (09:05)
--- NOTE | 2018-03-26 10:06 | CARD ---
APPROVED REPORT Date of service: 03/25/2018 EKG Measurement Heart [id number] <Conclusion> Sinus rhythm with premature atrial complexes Right bundle branch block Abnormal ECG
--- NOTE | 2018-03-26 11:01 | CT ---
Date of service: 03/25/2018 PROCEDURE: CT Chest with contrast (Pulmonary Angiogram) HISTORY: SOB COMPARISON: None available. TECHNIQUE: Axial computed tomography images were obtained of the chest in the pulmonary arterial phase of enhancement. Coronal and sagittal reformatted images were created and reviewed. Intravenous contrast dose: 100 cc of Omni 350 Radiation dose: Total exam DLP = 315 mGy-cm. This CT exam was performed using one or more of the following dose reduction techniques: Automated exposure control, adjustment of the mA and/or kV according to patient size, and/or use of iterative reconstruction technique. FINDINGS: PULMONARY ARTERIES: Unremarkable. No pulmonary embolism. AORTA: There is dilatation of the thoracic aorta.. The ascending aorta measures 5.2 cm and the proximal descending aorta measures 4.3 cm. There is mural thrombus in the upper abdominal aorta and focal displacement of intimal plaque within the mural thrombus. No evidence of acute dissection LUNGS: Atelectasis at the right lung base adjacent to the large effusion. PLEURAL SPACES: Unremarkable. No effusion or pneumothorax. HEART: Unremarkable. No cardiomegaly. No significant pericardial effusion. Dense calcification of the coronary arteries. LYMPH NODES: No lymphadenopathy. BONES, CHEST WALL: Unremarkable. No fracture or destructive lesion OTHER FINDINGS: The report concurs with the preliminary [facility] report IMPRESSION: Large right pleural effusion. Dilatation of the thoracic aorta. No evidence of pulmonary embolus
--- NOTE | 2018-03-26 11:32 | US ---
PROCEDURE: Ultrasound guided right thoracentesis. CLINICAL HISTORY: Pelvic malignancy. Are submitted ptosis with recurrent right pleural effusion. Shortness of breath. Needs thoracentesis. PHYSICIAN(S): Mario Yee MD. TECHNIQUE: The relative risks and indications of the procedure were explained to the patient and consent obtained. The patient was placed in a sitting position on the stretcher and sonography of the right chest performed. This revealed a moderate to large rightpleural effusion. A right posterolateral intercostal approach was selected and the area prepped and draped usual sterile fashion. 1% Xylocaine was used to anesthetize the skin and soft tissues. A 7 Kiswahili thoracentesis catheter was trocared into the right pleural cavity and 2000 ccof clear fluid aspirated. No labs were sent. IMPRESSION: 1. Ultrasound guided right thoracentesis. 2000 cc of clear fluid was aspirated.
--- NOTE | 2018-03-26 12:20 | CON ---
DATE: 03/26/2018 CONSULTATION INDICATIONS: Shortness of breath, pleural effusion. HISTORY OF PRESENT ILLNESS: This is a 78-year-old woman, known to me, admitted yesterday after she was found to have shortness of breath, hypoxia and a large right pleural effusion, which is recurrent and related to her ovarian cancer (stage IV Mullerian duct origin). She has previously had thoracentesis, but these symptoms and pleural fluid have recurred. This morning, she is comfortable in bed without chest pain, shortness of breath, orthopnea, PND, syncope, presyncope, lightheadedness, dizziness, vertigo, palpitations, edema, claudication. There is no fever, chills, cough, sputum production, hemoptysis. There is no abdominal pain, nausea, vomiting, diarrhea, constipation, melena. In addition to ovarian cancer, currently being treated by Dr. Lind. She has a history of renal cell carcinoma with metastasis to the lung. She underwent a right nephrectomy and has been treated with interferon with good response apparently. There is also a history of coronary artery disease, remote coronary intervention, hypertension, rheumatoid arthritis, PMR, cerebrovascular disease, abdominal aortic aneurysm, hemochromatosis, DVT. She has a history of gallbladder surgery. She has PAD with intermittent claudication. MEDICATIONS AT THE TIME OF ADMISSION: include Eliquis, magnesium, prednisone, Singulair, vitamin B6 and vitamin D, Xyzal and Zaroxolyn. ALLERGIES: THERE ARE NO KNOWN MEDICATION ALLERGIES. SOCIAL HISTORY: She lives at home. She is a former smoker. She does not drink alcohol. She is ambulatory. REVIEW OF SYSTEMS: A 10-point review of systems is otherwise unremarkable except as noted above. FAMILY HISTORY: Noncontributory. PHYSICAL EXAMINATION: GENERAL: She is a well-developed woman, lying in bed on telemetry, in no acute distress. VITAL SIGNS: Notable for sinus rhythm, 90 beats per minute; afebrile; 113/74; respirations 18-20; O2 sat 97% on nasal cannula. HEENT: Reveals no neck vein distention, thyromegaly, carotid bruits. Mucous membranes moist. Conjunctivae pink. NECK: Supple. LUNGS: Diminished BS right side. HEART: Examination of the heart revealed normal first and second heart sounds. There is a soft systolic murmur along the left sternal border. The PMI is not palpable. ABDOMEN: Soft. Bowel sounds present. No mass, organomegaly, tenderness, rebound, guarding. I did not palpate the abdominal aortic aneurysm. EXTREMITIES: The extremity exam revealed no cyanosis, clubbing or edema. NEUROLOGICAL: Awake, alert and oriented. PSYCHIATRIC: Normal as to mood and affect. SKIN: Warm and dry. No rash or cellulitis. LABORATORY AND IMAGING: A CT scan of the chest was done. It is not formally read. Impressions in the ER included a large right pleural effusion and no evidence of pulmonary embolus. See full report for details. EKG demonstrates regular sinus rhythm, right bundle-branch block. White count 13,100, hemoglobin 9.8, hematocrit 29, platelet count 88,000. Electrolytes: BUN and creatinine unremarkable. Blood sugar 103, magnesium 1.3. LFTs mildly abnormal. CK less than 20, troponin less than 0.01. IMPRESSION: Silvino Jason is a 78-year-old woman with ovarian cancer, recurrent pleural effusion, admitted with shortness of breath, hypoxia with a history of renal cell carcinoma, treated with nephrectomy and interferon, a history of coronary artery disease, remote coronary intervention and multiple other medical problems and issues including thoracic aortic aneurysm, which measured about 5.3 cm in the past. At this time, she is on telemetry. She is resting comfortably. There are plans for interventional radiology input and possible pleurodex catheter. She is getting aspirin, magnesium, Singulair, metoprolol, Xopenex, Tylenol. We will monitor inputs and outputs. I will order an echocardiogram. I will review her old records. She will be seen by pulmonary and renal. I will follow along with you. I will make additional recommendations based on her clinical course. Pro Turk MD MTDMaureen
--- NOTE | 2018-03-26 18:48 | CARD ---
APPROVED REPORT Date of service: 03/26/2018 EXAM: Two-dimensional and M-mode echocardiogram with Doppler and color Doppler. INDICATION Dyspnea Pleural Effusion 2D DIMENSIONS Left Atrium (2D)3.5 (1.6-4.0cm)IVSd1.5 (0.7-1.1cm) LVDd4.0 (3.9-5.9cm)PWd1.3 (0.7-1.1cm) LVDs3.2 (2.5-4.0cm)FS (%) 20.7 % LVEF (%)42.8 (>50%) M-Mode DIMENSIONS Aortic Root3.30 (2.2-3.7cm)Aortic Cusp Exc.1.00 (1.5-2.0cm) Aortic Valve AoV Peak Hoddybod073.0cm/Yamilet Peak GR.7mmHg Mitral Valve MV E Dipjilcv65.2cm/sMV A Cfzsekwe64.8cm/sE/A ratio0.6 TDI E/Lateral E'0.0E/Medial E'0.0 Tricuspid Valve TR Peak [id number] [id number] Peak Gr.29mmHg [id number] LEFT VENTRICLE The left ventricle is normal size. There is mild concentric left ventricular hypertrophy. The systolic function is mildly impaired.LV Ej. Fr: 42%. LV Anterior Wall is Hypokinetic. RIGHT VENTRICLE The right ventricle is normal size. There is normal right ventricular wall thickness. ATRIA The left atrium size is normal. The right atrium size is normal. AORTIC VALVE Aortic Valve is Calcified. Aortic Sclerosis/Mild Aortic Stenosis. MITRAL VALVE Mitral Valve Leaflets are Thickened. Opening Normal. Mitral regurgitation is mild. TRICUSPID VALVE The tricuspid valve is normal in structure. There is moderate tricuspid regurgitation.RVSP: 39mm Hg. Mild Pulmonary Hypertension. PULMONIC VALVE Trace Pulmonic Regurge. <Conclusion> The left ventricle is normal size. There is mild concentric left ventricular hypertrophy. The systolic function is mildly impaired.LV Ej. Fr: 42%. LV Anterior Wall is Hypokinetic. The right ventricle is normal size. There is normal right ventricular Systolic Function. The left atrium size is normal. The right atrium size is normal. Aortic Valve is Calcified. Aortic Sclerosis/Mild Aortic Stenosis. Mitral Valve Leaflets are Thickened. Opening Normal. Mitral regurgitation is mild. Trace Pulmonic Regurge. The tricuspid valve is normal in structure. There is moderate tricuspid regurgitation.RVSP: 39mm Hg. Mild Pulmonary Hypertension.
--- NOTE | 2018-03-26 21:31 | PN ---
DATE: 03/26/2018 This is [facility] visit on the telemetry floor. For Dr. Lind. SUBJECTIVE: The patient is a 78-year-old female admitted via the Emergency Room yesterday for increasing shortness of breath, noted to have significant pleural effusion for which she was tapped with thoracentesis earlier today by Dr. Mario Yee with good effect. 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 At present, she is feeling better status post thoracentesis reporting that her appetite is not so good with the patient able to seep due to her roommate with consideration for transfer as the patient is now improved. Otherwise, she reports she is in no acute distress at present. The patient does need a PleurX catheter as this is the third time she has had thoracentesis with this to be planned for Thursday as per Dr. Mario Yee. PHYSICAL EXAMINATION: VITAL SIGNS: Temperature 98.1, pulse 84, respirations 17, blood pressure 124/60 with a pulse ox 97%. HEENT: Unremarkable. NECK: Supple. HEART: Regular rate. Occasional ectopic beat. LUNGS: Clear on the left with minimally decreased breath sounds on the right. ABDOMEN: Soft, nontender. EXTREMITIES: No edema. SKIN: Warm and dry. NEUROLOGIC: Awake, alert, and oriented. LABORATORY DATA: The patient's labs were done. White blood cell count of 13.1, hemoglobin 9.8, hematocrit 29, platelet count of 88,000, improved from 65,000 yesterday with a manual count of 120,000. Her chem metabolic panel showed a completely normal chem panel except for BUN of 24, normal creatinine of 0.9, AST of 40. The patient did have a CAT scan of her chest, CT angiogram done on 03/25/2018. The impression was large right pleural effusion, dilatation of the thoracic aorta. No evidence of pulmonary embolism. The patient had EKG done yesterday, it was read as sinus rhythm with premature atrial complexes, right bundle-branch block, abnormal EKG. The patient also had an echocardiogram, it is to be read with a thoracentesis ultrasound with 2000 mL of clear fluid aspirated from the right pleural space. ASSESSMENT: For this patient is that of significant pleural effusion, Mullerian duct cancer, history of renal cell cancer with lung metastasis, hypoxemia, atherosclerotic cardiovascular disease, abdominal aortic aneurysm history. PLAN: For this patient is to monitor clinically. We will transfer her from the telemetry floor to an oncology floor bed with the plan for a PleurX catheter to be placed in 2 days' time. We also plan for Avastin to be added to her regimen as per Dr. Lind with her anemic indices to be monitored. Echocardiogram is to be checked as per Dr. Turk, her insurance examining clerk with the prognosis for this patient guarded. She continues on supplemental oxygen as per Dr. Love, Pulmonary and we will await Dr. Ivy's evaluation as the patient was known to suffer from hyperkalemia with patient had been on Samsca in the past. This is a complex patient with a comprehensive medically necessary and appropriate visit carried out in excess of 25 minutes with the patient's questions answered to her satisfaction. Luis Zafar MD
--- NOTE | 2018-03-26 22:51 | CON ---
DATE: 03/26/2018 REASON FOR CONSULTATION: Hyperkalemia. HISTORY OF PRESENT ILLNESS: A 78-year-old lady, previously unknown to me, was sent to the emergency room from Dr. Lind's office because of shortness of breath and finding of pleural effusion. She had a CT scan of her chest done in the emergency room, which showed large right pleural effusion, dilatation of the thoracic aorta, and no evidence of pulmonary embolus. This morning she had ultrasound-guided thoracentesis and 2 liters of fluid was removed from the right side. At the time of admission, her potassium was found to be 5.2. Hence, consultation is requested. PAST MEDICAL AND SURGICAL HISTORY: Metastatic renal cell CA with bilateral lung mets with history of right nephrectomy, treatment with interferon. The patient reports she was in remission for 14 years. Recently, she developed a DVT for which she was on Eliquis. Subsequently, she was found to have some issue with her right shoulder for which she received radiation. Now found to have ovarian cancer. She is receiving Gemzar-based chemotherapy, last cycle was 3 weeks ago. She received Neupogen on 03/22. She has a history of recurrent right pleural effusion. FAMILY HISTORY: Noncontributory. SOCIAL HISTORY: Ex-smoker, quit 5 years ago, social alcohol intake about one to two drinks per day, no history of any drug abuse. ALLERGIES: NO KNOWN DRUG ALLERGIES. MEDICATIONS AT HOME: Metoprolol 50 once a day, Ecotrin 81, Eliquis 2.5 b.i.d., magnesium 250 mg b.i.d., Robitussin, Singulair, Xopenex. REVIEW OF SYSTEMS: Shortness of breath, dyspnea on exertion. All other systems are reviewed and unremarkable. PHYSICAL EXAMINATION: GENERAL: Elderly lady sitting in chair. VITAL SIGNS: Blood pressure 98/63, heart rate 80, respiratory rate 18, temperature 98.3. HEENT: Normocephalic, atraumatic, positive pallor. NECK: Supple. No JVD. LUNGS: Bilateral equal air entry, bilateral equal expansion, decreased breath sounds at right side. CARDIAC: S1 and S2. Regular rate and rhythm. No murmur. No rub. ABDOMEN: Soft, nondistended, nontender, bowel sounds present. EXTREMITIES: No lower extremity edema. INTAKE AND OUTPUT: 2 liters of fluid removed from the right pleural cavity. LABORATORY DATA: WBC 13, hemoglobin 9.8, hematocrit 29, platelets 120. Sodium 136, potassium 3.8, chloride 101, CO2 of 29, BUN 24, creatinine 0.9, glucose 103, calcium 8.9, phosphorus 4.5, magnesium 1.3. CURRENT MEDICATIONS: Claritin, Ecotrin, mag oxide, Robitussin, Singulair, Toprol-XL 75 p.o., Xopenex. ASSESSMENT: 1. Stage IV ovarian cancer. 2. Recurrent right pleural effusion. 3. History of metastatic renal cell carcinoma with lung mets 14 years ago. 4. Mild hyperkalemia, now resolved. 5. History of hyponatremia, history of tolvaptan use. PLAN: 1. Currently potassium is within normal limits. 2. Elevated WBC count, likely secondary to Neupogen. 3. Renal function appears to be stable. 4. Recommend checking urinalysis. 5. Continue magnesium supplementation. Thank you for the courtesy of this consultation. Deanna Ivy MD (Delete this signature block when dictator is a preceptor.) cc:
[2018-03-26] MEDS: Budesonide 0.5 mg/2 ml Inhal Susp UD IH SCH (23:30)
[2018-03-27] MEDS: guaiFENesin DM 100 mg-10 mg/5 ml UD PO PRN (03:16)
[2018-03-27] MEDS: Budesonide 0.5 mg/2 ml Inhal Susp UD IH SCH ×3 (07:00→20:00)
--- NOTE | 2018-03-27 07:11 | CP.PCM.PN ---
Subjective - Date & Time of Evaluation Date of Evaluation: 03/27/18 Time of Evaluation: 07:00 - Subjective Subjective: Stable on 3R. S/P thoracentesis yesterday, 2.0 liters clear fluid removed. Still cough. V/S noted. RSR PE: Lungs: decreased BS right side Cor: S1S2 Abd.: soft Ext.: no edema Neuro.: alert I/O= 540/200 Echo noted. Objective - Vital Signs/Intake and Output Vital Signs (last 24 hours): Temp Pulse Resp BP Pulse Ox 98.1 F 88 20 117/76 97 03/26/18 22:00 03/26/18 22:00 03/26/18 22:00 03/26/18 22:00 03/26/18 06:00 Intake and Output: 03/26/18 03/27/18 18:59 06:59 Intake Total 540 Output Total 200 Balance 340 - Medications Medications: Current Medications Acetaminophen (Tylenol 325mg Tab) 650 mg PO Q6H PRN PRN Reason: Pain, Mild (1-3) Acetylcysteine (Acetylcysteine 20%) 4 ml IH TID [facility] Apixaban (Eliquis) 5 mg PO BID [facility]; Protocol Aspirin (Ecotrin) 81 mg PO DAILY [facility] Last Admin: 03/26/18 09:05 Dose: 81 mg Budesonide (Pulmicort Respules) 0.5 mg IH 0730,1530,2330 [facility] Last Admin: 03/26/18 23:30 Dose: Not Given Guaifenesin/Dextromethorphan (Robitussin Dm) 5 ml PO Q4H PRN PRN Reason: Cough Last Admin: 03/27/18 03:16 Dose: 5 ml Levalbuterol HCl (Xopenex) 0.63 mg IH BIDRESP [facility] Last Admin: 03/26/18 19:42 Dose: 0.63 mg Loratadine (Claritin) 10 mg PO DAILY [facility] Last Admin: 03/26/18 09:05 Dose: 10 mg Magnesium Oxide (Mag-Ox) 400 mg PO DAILY [facility] Last Admin: 03/26/18 09:05 Dose: 400 mg Metoprolol Succinate (Toprol Xl) 75 mg PO BRK [facility] Last Admin: 03/26/18 08:34 Dose: 75 mg Montelukast Sodium (Singulair) 10 mg PO DAILY [facility] Last Admin: 03/26/18 09:26 Dose: Not Given Oxycodone HCl (Oxycodone Immediate Release Tab) 5 mg PO Q6H PRN PRN Reason: Pain, severe (8-10) Zolpidem Tartrate (Ambien) 5 mg PO HS PRN; Protocol PRN Reason: Insomnia Last Admin: 03/26/18 22:03 Dose: 5 mg - Labs Labs: 03/26/18 06:30 03/26/18 06:30 Assessment and Plan - Assessment and Plan (Free Text) Assessment: Dyspnea/Cough/Recurrent large right pleural effusion, s/p thoracentesis 03/26/18 Ovarian cancer CAD/Remote PCI RBBB HBP RA H/O SIADH H/O Renal cell cancer with lung mets.,tx. with nephrectomy and interferon CVD TAA PAD/IC DVT Former Smoker Plan: As per Oncology, Int. Radiology, Pulmonary Monitor labs, I/O, sats., etc
--- NOTE | 2018-03-27 07:14 | CON ---
DATE: 03/26/2018 REFERRING PHYSICIAN: Dr. Lind. REASON FOR CONSULT: Pleural effusion, lung cancer. HISTORY OF PRESENT ILLNESS: This is a 78-year-old female with past medical history significant for multiple malignancies including metastatic renal cell carcinoma, history of nephrectomy, mets to the lungs. She also has polymyalgia rheumatica, hemochromatosis, hypertension, also has an abdominal aortic aneurysm, history of DVT, been on Eliquis. The patient also has a history of stage IV carcinoma of mullerian duct, comes in to ER with shortness of breath, found to have a large pleural effusion. No hemoptysis or emesis. No hematuria, no diarrhea reported. Status post thoracentesis, removal of 2 liters of fluid. Presently feels better, has some cough and sputum. No hemoptysis or emesis. No hematuria, no diarrhea reported. PAST MEDICAL HISTORY: As per history of present illness. SOCIAL HISTORY: No history of smoking or alcohol use. FAMILY HISTORY: No significant cardiopulmonary disease reported. ALLERGIES: NONE KNOWN. MEDICATIONS: She is on Ambien 5 mg h.s. p.r.n., Claritin 10 mg daily, Ecotrin 81 mg daily, mag oxide 400 mg daily, oxycodone immediate release 5 mg every 6 hours p.r.n., Robitussin DM 5 mL every 4 hours p.r.n., Singulair 10 mg daily, Toprol-XL 75 mg daily, Tylenol on p.r.n. basis, Xopenex inhaled twice a day. REVIEW OF SYSTEMS: No headache, no rhinitis. Has some cough, clear sputum. No chest pain. No nausea, no vomiting, no diarrhea, or leg pain or leg swelling. PHYSICAL EXAMINATION: GENERAL: No acute distress. VITAL SIGNS: Temperature , heart rate is 84, respiratory rate is 20, blood pressure 124/60, pulse ox 97% on nasal cannula. HEENT: Moist mucous membranes. No ulcer or thrush. NECK: Supple. No JVD. LUNGS: Few crackles at the bases. HEART: S1 and S2. ABDOMEN: Soft, nontender. No organomegaly. EXTREMITIES: No edema. NEUROLOGIC: Awake and follows simple commands. LABORATORY DATA: Shows hemoglobin 9.8, hematocrit 29.0, WBC of 13,000, platelet count is 88. Sodium 136, potassium 3.8, chloride 101, bicarbonate is 29, BUN 24, creatinine 0.9, glucose 103, calcium is 8.9, AST 40, ALT 55, alk phos is 84. Albumin is 3.1. Thoracentesis and ultrasound done, removal of 2 liters of fluid. Had echocardiogram done which shows right ventricular systolic pressure is 39, LV ejection fraction is about 42%. There is some valvular heart disease with pulmonary hypertension. CT of the chest done before thoracentesis shows large right pleural effusion, dilatation of the thoracic aorta, no evidence of pulmonary embolism. IMPRESSION AND PLAN: Has a mullerian origin stage IV carcinoma. Also has a history of small cell carcinoma of the lung, also renal cell carcinoma requiring nephrectomy, coronary artery disease, history of DVT, aortic aneurysm, has a history of DVT, underwent volume thoracentesis today. If pleural effusion keeps recurring, may benefit from PleurX catheter. We will add inhaled bronchodilator for pulmonary toilet, will be followed by Dr. Lind. Gastric prophylaxis, on anticoagulation. Thank you and we will follow with you. Concepcion Love MD
[2018-03-27] MEDS: Levalbuterol 0.63 MG/3 ML Inhal Soln UD IH SCH ×2 (08:00→20:00)
[2018-03-27] MEDS: Metoprolol Succinate 25 mg XL Tab PO SCH (08:25)
[2018-03-27] MEDS: Magnesium Oxide 400 mg Tab UD PO SCH (09:24)
[2018-03-27] MEDS: Acetylcysteine 20% Inhal Soln (4ml) IH SCH ×3 (10:00→20:00)
--- NOTE | 2018-03-27 11:43 | RAD ---
Date of service: 03/27/2018 HISTORY: rt thora COMPARISON: 03/02/2018 TECHNIQUE: Chest PA and lateral FINDINGS: LUNGS: No infiltrate. There is atelectasis at the right base. There is moderate to large right hydro pneumothorax. No left pneumothorax. No left pleural effusion. PLEURA: As above. CARDIOVASCULAR: Normal heart size. Right central venous infusion port unchanged. No congestive change OSSEOUS STRUCTURES: No significant abnormalities. VISUALIZED UPPER ABDOMEN: Normal. OTHER FINDINGS: None. IMPRESSION: Moderate to large right hydropneumothorax.
[2018-03-27 14:14] LABS: BASO # 0.17 K/mm3 (0.0-2.0); BASO % 1.3 % (0.0-3.0); EOS % 0.3 % (1.5-5.0); HEMOGLOBIN 9.7 g/dL (12.0-16.0); MEAN CELL VOLUME 100.3 fl (80.0-105.0); MEAN CORPUSCULAR HEMOGLOBIN 33.8 pg (25.0-35.0); MEAN CORPUSCULAR HGB CONC 33.7 g/dl (31.0-37.0); MEAN PLATELET VOLUME 10.8 fl (7.0-11.0); PLATELET COUNT 172 10^3/uL (120.0-450.0); RBC 2.87 10^6/uL (3.5-6.1); RED CELL DISTRIBUTION WIDTH 13.4 % (11.5-14.5)
[2018-03-27 14:21] LABS: ALB/GLOB RATIO 1.1 (1.1-1.8); ALBUMIN 2.9 g/dL (3.0-4.8); ALT/SGPT 46 U/L (7-56); AST/SGOT 38 U/L (14-36); BLOOD UREA NITROGEN 20 mg/dL (7-21); CALCIUM 8.4 mg/dL (8.4-10.5); GFR NON-AFRICAN AMERICAN > 60
[2018-03-27 14:28] LABS: B-TYPE NATRIURETIC PEPTIDE 1790 pg/mL (0-450)
[2018-03-27 14:35] LABS: URINE BILIRUBIN NEGATIVE (NEGATIVE); URINE BLOOD SMALL (NEGATIVE); URINE GLUCOSE (UA) NEGATIVE (NEGATIVE); URINE LEUKOCYTE ESTERASE MODERATE Leu/uL (NEGATIVE); URINE PROTEIN 100 mg/dL (<30 mg/dL); URINE UROBILINOGEN 0.2 E.U./dL (<1 E.U./dL)
[2018-03-27 14:49] LABS: WHITE BLOOD COUNT 12.7 10^3/ul (4.5-11.0)
[2018-03-27] MEDS ORDERED: Magnesium Oxide 400 mg Tab UD PO ONE (14:53)
[2018-03-27] MEDS ORDERED: Potassium Chloride 20 mEq ER Tab PO ONE (14:53)
[2018-03-27 14:55] LABS: URINE COLOR YELLOW (YELLOW)
[2018-03-27 14:56] LABS: URINE APPEARANCE CLOUDY (CLEAR)
[2018-03-27 14:57] LABS: URINE BACTERIA MANY (NEG); URINE WBC TNTC /hpf (0-6)
--- NOTE | 2018-03-27 18:13 | PN ---
DATE: 03/27/2018 This is [facility]'s hospital visit on the medical floor. For Dr. Lind. SUBJECTIVE: The patient is a 78-year-old female admitted via the Emergency Room for increasing shortness of breath with significant pleural effusion with two liters tapped via thoracentesis by Dr. Mario Yee with the patient now with an occasional cough, however, feeling better. Her pulse ox is also significantly improved on 4 liters nasal cannula oxygen. 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 At present, the patient is scheduled for a reevaluation and possibly Pleurx catheter placement as per Dr. Mario Yee with the patient's chest x-ray to be read as below with significant reaccumulation of fluid as this is her third thoracentesis. Otherwise, the patient denies any pain. PHYSICAL EXAMINATION: VITAL SIGNS: Temperature 97.9, pulse 79, respirations 20, blood pressure 104/70, pulse ox 97% on 4 liters nasal cannula. HEENT: Unremarkable. NECK: Supple. HEART: Regular rate. Occasional ectopic beat. LUNGS: Scattered rhonchi, decreased breath sounds on the right. ABDOMEN: Soft, nontender. EXTREMITIES: No edema. SKIN: Warm and dry. NEUROLOGIC: Awake, alert, and oriented x3. LABORATORY DATA: The patient's labs were done. White blood cell count of 13.1, hemoglobin 9.8, hematocrit of 29, platelet count of 88,000 with a manual count of 120,000 done yesterday. Her labs from today are pending as she needed from the cath flow as her Port-A-Cath was not accessible with labs to be checked once they are sent. Again, her labs from yesterday, a chem panel was within normal range except for BUN of 24 with a normal creatinine of 0.9. The patient did have a chest x-ray done earlier today. It was read as [id number] right hydropneumothorax. ASSESSMENT: For this patient is that of recurrent pleural effusion, status post thoracentesis, stage IV Mullerian duct cancer, history of renal cancer with lung metastasis, atherosclerotic cardiovascular disease, history of deep venous thrombosis, history of abdominal aortic aneurysm, chronic obstructive pulmonary disease, history of syndrome of inappropriate secretion of antidiuretic hormone, on Samsca in the past. PLAN: For this patient after conversation with Dr. Lind is continue present medical regimen for her anemia and thrombocytopenia. We will monitor her labs with placement of a Pleurx catheter in near future. We will monitor clinically with labs. This is a complex patient with a comprehensive medically necessary and appropriate visit carried out in excess of 20 minutes with the patient's questions answered to her satisfaction. Luis Zafar MD
--- NOTE | 2018-03-28 00:13 | PN ---
DATE: 03/27/2018 PULMONARY PROGRESS NOTE REFERRING PHYSICIAN: Luis Zafar MD SUBJECTIVE: She is sitting up in the bed. Family is at bedside. Night was unremarkable. Still has cough and sputum production. No hemoptysis. No hematemesis. No hematuria. No diarrhea. No leg pain or leg swelling. OBJECTIVE GENERAL: In no acute distress. VITAL SIGNS: Temperature is 98, heart rate is 79, respiratory rate is 20, blood pressure 104/70, pulse ox 97% on nasal cannula. HEENT: Moist mucous membrane. Crowded airway. NECK: Supple. No JVD. LUNGS: Have decreased breath sounds at the right base with scattered rhonchi. HEART: S1 and S2. ABDOMEN: Soft, nontender. No organomegaly. EXTREMITIES: There is no edema. NEUROLOGIC: Awake, alert. Follows simple commands. MEDICATIONS: She is on Mucomyst inhaled three times a day, Ambien 5 mg at bedtime p.r.n., Claritin 10 mg daily, Ecotrin 81 mg daily, Eliquis 5 mg twice a day, mag oxide 400 mg daily, oxycodone immediate release 5 mg every 4 hours p.r.n., Pulmicort inhaled twice a day, Robitussin 5 mL every 4 hours p.r.n., Singulair 10 mg daily, Toprol-XL 75 mg daily, Tylenol p.r.n., Xopenex 0.63 every 12 hours [id number]. LABORATORY DATA: Shows hemoglobin 9.7, hematocrit 28.8, WBC is 12.7, platelet is 172. Sodium 134, potassium 3.5, chloride 99, bicarbonate 29, BUN 20, creatinine 0.9. Glucose 168, calcium 8.4, magnesium 1.4. AST 38, ALT 46, alkaline phosphatase is 96, albumin is 2.9, proBNP 1790. Urinalysis, wbc's were too numerous to count. Chest x-ray done this morning shows [id number] right hydropneumothorax. IMPRESSION AND PLAN: Mullerian origin stage IV carcinoma with metastatic disease, also has a small cell l toney cancer, history of renal cell carcinoma, requiring nephrectomy, coronary artery disease, history of deep venous thrombosis, aortic aneurysm, status post volume thoracentesis yesterday, end up with pneumothorax. Symptomatic mandujano, she is okay. Has mild cough. On gastric prophylaxis, anticoagulation. We will have nurse sent message to Dr. Mario Yee, so he is aware of it. Probably, she needs PleurX catheter that could be done solving both pneumothorax and pleural effusion issue. Told need chest tube right away because of stability of the patient's symptom. Continue diuretics. Thank you and we will follow with you. Concepcion Love MD
[2018-03-28 06:38] LABS: BASO # 0.35 K/mm3 (0.0-2.0); BASO % 2.6 % (0.0-3.0); EOS % 0.2 % (1.5-5.0); HEMOGLOBIN 9.4 g/dL (12.0-16.0); MEAN CELL VOLUME 100.4 fl (80.0-105.0); MEAN CORPUSCULAR HEMOGLOBIN 33.9 pg (25.0-35.0); MEAN CORPUSCULAR HGB CONC 33.8 g/dl (31.0-37.0); MEAN PLATELET VOLUME 10.8 fl (7.0-11.0); MONO # 2.1 (0.1-0.6); MONO % 15.5 % (1.0-6.0); PLATELET COUNT 219 10^3/uL (120.0-450.0); RBC 2.77 10^6/uL (3.5-6.1); RED CELL DISTRIBUTION WIDTH 13.5 % (11.5-14.5); WHITE BLOOD COUNT 13.4 10^3/ul (4.5-11.0)
[2018-03-28 07:18] LABS: ALBUMIN 2.9 g/dL (3.0-4.8); ALT/SGPT 41 U/L (7-56); AST/SGOT 35 U/L (14-36); BLOOD UREA NITROGEN 18 mg/dL (7-21); CALCIUM 8.6 mg/dL (8.4-10.5); GFR NON-AFRICAN AMERICAN > 60
--- NOTE | 2018-03-28 07:22 | CP.PCM.PN ---
Subjective - Date & Time of Evaluation Date of Evaluation: 03/28/18 Time of Evaluation: 07:00 - Subjective Subjective: Stable on 3R. Still mild cough. No SOB or CP reported. S/P thoracentesis, 2.0 liters clear fluid removed. Still cough. CXR > hydropneumothorax post thoracentesis. V/S noted. RSR PE: Lungs: decreased BS right side Cor: S1S2 Abd.: soft Ext.: no edema Neuro.: alert I/O= 540/200 Echo noted. Objective - Vital Signs/Intake and Output Vital Signs (last 24 hours): Temp Pulse Resp BP Pulse Ox 98.8 F 95 H 20 102/71 100 03/28/18 00:01 03/28/18 00:01 03/28/18 00:01 03/28/18 00:01 03/28/18 00:01 Intake and Output: 03/28/18 03/28/18 06:59 18:59 Intake Total 260 Balance 260 - Medications Medications: Current Medications Acetaminophen (Tylenol 325mg Tab) 650 mg PO Q6H PRN PRN Reason: Pain, Mild (1-3) Acetylcysteine (Acetylcysteine 20%) 4 ml IH TID [facility] Last Admin: 03/27/18 20:00 Dose: Not Given Apixaban (Eliquis) 5 mg PO BID [facility]; Protocol Last Admin: 03/27/18 17:08 Dose: 5 mg Aspirin (Ecotrin) 81 mg PO DAILY [facility] Last Admin: 03/27/18 09:24 Dose: 81 mg Budesonide (Pulmicort Respules) 0.5 mg IH 0730,1530,2330 [facility] Last Admin: 03/27/18 20:00 Dose: 0.5 mg Guaifenesin/Dextromethorphan (Robitussin Dm) 5 ml PO Q4H PRN PRN Reason: Cough Last Admin: 03/27/18 03:16 Dose: 5 ml Levalbuterol HCl (Xopenex) 0.63 mg IH BIDRESP [facility] Last Admin: 03/27/18 20:00 Dose: 0.63 mg Loratadine (Claritin) 10 mg PO DAILY [facility] Last Admin: 03/27/18 09:24 Dose: 10 mg Magnesium Oxide (Mag-Ox) 400 mg PO DAILY [facility] Last Admin: 03/27/18 09:24 Dose: 400 mg Metoprolol Succinate (Toprol Xl) 75 mg PO BRK [facility] Last Admin: 03/27/18 08:25 Dose: Not Given Montelukast Sodium (Singulair) 10 mg PO DAILY [facility] Last Admin: 03/27/18 09:24 Dose: 10 mg Oxycodone HCl (Oxycodone Immediate Release Tab) 5 mg PO Q6H PRN PRN Reason: Pain, severe (8-10) Zolpidem Tartrate (Ambien) 5 mg PO HS PRN; Protocol PRN Reason: Insomnia Last Admin: 03/27/18 21:38 Dose: 5 mg - Labs Labs: 03/28/18 06:00 03/28/18 06:00 Assessment and Plan - Assessment and Plan (Free Text) Assessment: Dyspnea/Cough/Recurrent large right pleural effusion, s/p thoracentesis 03/26/18 with hydropneumothorax. Ovarian cancer CAD/Remote PCI RBBB HBP RA H/O SIADH H/O Renal cell cancer with lung mets.,tx. with nephrectomy and interferon CVD TAA PAD/IC DVT Former Smoker Plan: As per Oncology, Int. Radiology, Pulmonary CT or PleurX catheter LYRIC. AM labs pending. Monitor labs, I/O, sats., etc
[2018-03-28] MEDS: Budesonide 0.5 mg/2 ml Inhal Susp UD IH SCH ×3 (07:38→19:56)
[2018-03-28] MEDS: Levalbuterol 0.63 MG/3 ML Inhal Soln UD IH SCH ×2 (07:39→19:56)
[2018-03-28] MEDS: Metoprolol Succinate 25 mg XL Tab PO SCH (08:40)
[2018-03-28] MEDS: Magnesium Oxide 400 mg Tab UD PO SCH (09:49)
[2018-03-28] MEDS: Acetylcysteine 20% Inhal Soln (4ml) IH SCH ×4 (10:00→20:05)
[2018-03-28 10:52] LABS: BAND 7 % (0-2); LYMPHOCYTE 21 % (22.0-35.0); MONOCYTE 8 % (1.0-6.0)
[2018-03-28 10:53] LABS: ATYPICAL LYMPHOCYTE 6 % (0.0-0.0); NEUTROPHIL 51 % (50.0-70.0)
[2018-03-28 10:54] LABS: METAMYELOCYTE 5 %; PLATELET ESTIMATE NORMAL (NORMAL)
--- NOTE | 2018-03-28 11:13 | RAD ---
Date of service: 03/28/2018 HISTORY: R Hydropneomothorax COMPARISON: 03/27/2018 TECHNIQUE: Chest PA and lateral FINDINGS: LUNGS: No infiltrate. PLEURA: Persistent large right hydro pneumothorax. No left pneumothorax. No left pleural effusion. CARDIOVASCULAR: Normal heart size. No congestive change. Right central venous infusion port. OSSEOUS STRUCTURES: No significant abnormalities. VISUALIZED UPPER ABDOMEN: Normal. OTHER FINDINGS: None. IMPRESSION: Large right hydro pneumothorax, essentially unchanged from prior examination of 03/27/2018. Please note that the Lacy, the nurse caring for this patient, was informed of this finding by telephone at 11 a.m. on 03/28/2018, and indicated that the medical team was aware.
[2018-03-28] MEDS ORDERED: Magnesium Sulfate 1 gm in D5W 1 GM/100 ML BAG IVPB ONE (16:05)
--- NOTE | 2018-03-28 19:44 | PN ---
DATE: 03/28/[address] [facility] visit on the medical floor. For Dr. Lind. SUBJECTIVE: The patient is a 78-year-old female seen sitting up in chair with supplemental oxygen on. Reported she feels quite well. Denies shortness of breath. Denies pain. Status post thoracentesis of [address] Mario Yee for her significant pleural effusion. 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 She is for placement of a PleurX catheter by Dr. Mario Yee tomorrow and after conversation was held with Dr. Love, Pulmonology and with nursing staff as the patient appears comfortable and is under direct visual observation of the nurses in her present room, we will await placement of the catheter as per Dr. Love's recommendation despite the patient now having a hydropneumothorax on the site of the thoracentesis. She is otherwise resting comfortably and is informed of the recommendations and plan and is in no acute distress. PHYSICAL EXAMINATION: VITAL SIGNS: Temperature 98.2, pulse 73, respirations 20, blood pressure 125/76 with a pulse ox of 98%. HEENT: Unremarkable. NECK: Supple. HEART: Regular rate. LUNGS: Decreased breath sounds on the right, occasional rhonchi. ABDOMEN: Soft, nontender. EXTREMITIES: No edema. SKIN: Warm and dry. NEUROLOGIC: Awake, alert, and oriented. LABORATORY DATA: The patient's labs were done. White blood cell count of 13.4, hemoglobin 9.4, hematocrit of 27.8, platelet count of 219,000. Her chem metabolic panel was within normal limit except for total protein of 5.6. Her urinalysis from yesterday shows small amount of blood, moderate amount of leukocyte esterase. The patient's repeat chest x-ray today was read as large right hydropneumothorax, essentially unchanged from prior exam yesterday with recommendations as listed above. ASSESSMENT: For this patient is that of Mullerian duct stage IV cancer with metastatic disease; small cell lung cancer history; history of renal cell carcinoma; new hydropneumothorax, status post thoracentesis for pleural effusion, recurrent; history of deep venous thrombosis; aortic aneurysm; atherosclerotic cardiovascular disease; history of syndrome of inappropriate secretion of antidiuretic hormone in the past; chronic obstructive pulmonary disease. PLAN: For this patient after conversation with Dr. Lind is to continue present medical regimen as the patient is asymptomatic at present with good pulse oxygenation. We will request evaluation by Dr. Mario Yee for treatment of her lung pathology with PleurX catheter as indicated. We will also hold her Eliquis 5 mg p.o. b.i.d., but continue Ecotrin 81 mg a day in anticipation of procedure. We will also monitor clinically and with labs. Chest x-ray will be done in the morning as per Dr. Mario Yee. This is a complex patient with a comprehensive medically necessary and appropriate visit carried out in excess of 50 minutes with the patient's questions answered to her satisfaction. Prognosis for this patient is guarded. Luis Zafar MD
--- NOTE | 2018-03-28 22:45 | PN ---
Date: 03/28/2018 PULMONARY PROGRESS NOTE REFERRING PHYSICIAN: Luis Zafar MD SUBJECTIVE: She is sitting at side of the bed. Family is at bedside. Overall feels better, has some cough. No nausea, no vomiting, no diarrhea. No leg pain or leg swelling. OBJECTIVE: GENERAL: In no acute distress. VITAL SIGNS: Temperature is 98, heart rate 73, respiratory rate is 20, blood pressure 125/76, pulse ox 98% on nasal cannula. HEENT: Moist mucous membrane. No ulcer or thrush. NECK: Supple. No JVD. LUNGS: Have decreased breath sounds on the right lung with a scattered rhonchi and crackles. HEART: S1 and S2. ABDOMEN: Soft, nontender. No organomegaly. EXTREMITIES: There is no edema. NEUROLOGIC: Awake, alert, follows simple command. MEDICATIONS: She is on Mucomyst inhaled three times a day, Ambien 5 mg at bedtime p.r.n., Claritin 10 mg daily, Ecotrin 81 mg daily, Eliquis 5 mg twice a day, magnesium oxide 400 mg daily, magnesium sulfate 1 g given, OxyContin immediate release 5 mg every 6 hours p.r.n., Pulmicort inhaled twice a day, Robitussin DM 5 mL every 4 hours p.r.n., Singulair 10 mg daily, Toprol XL 75 mg daily, Tylenol p.r.n. basis, Xopenex inhaled twice a day. LABORATORY DATA: Shows hemoglobin 9.4, hematocrit 27.8, WBC 13.4, platelet count is 219. Sodium 136, potassium 4.1, chloride 102, bicarbonate is 29, BUN 18, creatinine 0.9, glucose 102, calcium is 8.6, AST 35, ALT 41, alk phos is 87. Albumin is 2.9. Chest x-ray done this morning shows hydropneumothorax on the right side, not much change than yesterday. 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 Clinically, she still feels better. I believe in nursing staff orders. I spoke to Dr. Mario Yee. I agree with the plan. It may be more vacuthorax or pneumothorax, but I think she will benefit from PleurX catheter on the long run. Continue bronchodilator. Keep head at 45 degrees. Gastric prophylaxis. Anticoagulation, which is on hold. Thank you and we will follow with you. Concepcion Love MD
--- NOTE | 2018-03-28 23:32 | PN ---
DATE: 03/28/2018 SUBJECTIVE: The patient is seen sitting in chair. She is awake, she is alert. She is comfortable. She reports her breathing is better. She denies any chest tightness. She denies any nausea, vomiting or diarrhea. PHYSICAL EXAMINATION: GENERAL: Elderly lady sitting in chair. VITAL SIGNS: Blood pressure 125/76, heart rate 73, respiratory rate 20, temperature 98.2. HEENT: Normocephalic, atraumatic, positive pallor. NECK: Supple, no JVD. LUNGS: Bilateral equal air entry, bilateral equal expansion, no rales, no rhonchi. CARDIAC: S1, S2, regular rate and rhythm, no murmur, no rub. ABDOMEN: Obese, distended, soft, nontender, bowel sounds present. EXTREMITIES: No lower extremity edema. Intake and output: 1360/500. LABORATORY DATA: WBC 13.4, hemoglobin 9.4, hematocrit 27.8, platelets 219. Sodium 136, potassium 4.1, chloride 102, CO2 29, BUN 18, creatinine 0.9, glucose 102, calcium 8.6, magnesium 1.4, AST 35, ALT 41, albumin 2.9. CURRENT MEDICATIONS: Mucomyst, Ambien, Claritin, Ecotrin, Eliquis, mag oxide 400 daily, Robitussin, Singulair, Toprol XL, Tylenol, Xopenex. ASSESSMENT: 1. Hyperkalemia, resolved. 2. Severe hypomagnesemia, likely secondary to chemotherapy. 3. History of metastatic renal cell cancer, status post treatment with radiation/chemo in 1989. 4. Now with metastatic ovarian cancer. 5. Recurrent malignant pleural effusion. PLAN: 1. Replace magnesium IV. 2. Continue p.o. magnesium. 3. The patient is scheduled for a PleurX catheter tomorrow. 4. Management as per Oncology team. Deanna Ivy MD
[2018-03-29 07:16] LABS: HEMOGLOBIN 9.3 g/dL (12.0-16.0); MEAN CELL VOLUME 101.9 fl (80.0-105.0); MEAN CORPUSCULAR HEMOGLOBIN 34.4 pg (25.0-35.0); MEAN CORPUSCULAR HGB CONC 33.8 g/dl (31.0-37.0); MEAN PLATELET VOLUME 10.4 fl (7.0-11.0); PLATELET COUNT 319 10^3/uL (120.0-450.0); RED CELL DISTRIBUTION WIDTH 13.8 % (11.5-14.5); WHITE BLOOD COUNT 12.4 10^3/ul (4.5-11.0)
[2018-03-29 07:20] LABS: ALB/GLOB RATIO 1.1 (1.1-1.8); ALBUMIN 2.8 g/dL (3.0-4.8); ALT/SGPT 38 U/L (7-56); AST/SGOT 33 U/L (14-36); BLOOD UREA NITROGEN 19 mg/dL (7-21); CALCIUM 8.1 mg/dL (8.4-10.5); GFR NON-AFRICAN AMERICAN > 60
[2018-03-29 07:21] LABS: INR 1.26; PARTIAL THROMBOPLASTIN TIME 35.2 Seconds (25.1-36.5); PROTHROMBIN TIME 14.6 SECONDS (9.4-12.5)
--- NOTE | 2018-03-29 08:05 | CP.PCM.PN ---
Subjective - Date & Time of Evaluation Date of Evaluation: 03/29/18 Time of Evaluation: 07:00 - Subjective Subjective: Stable on 3R. Still mild cough. She feels OK. No SOB or CP reported. S/P thoracentesis, 2.0 liters clear fluid removed. Still cough. CXR > hydropneumothorax post thoracentesis. V/S noted. RSR PE: Lungs: decreased BS right side Cor: S1S2 Abd.: soft Ext.: no edema Neuro.: alert Labs: H/H = 9.3/27.5, WBC= 12,400, BMP = OK, Mg.++= 2.0 Echo noted. CXR today: not read yet. Looks about the same. Objective - Vital Signs/Intake and Output Vital Signs (last 24 hours): Temp Pulse Resp BP Pulse Ox 98.1 F 82 20 101/74 98 03/28/18 17:05 03/28/18 17:05 03/28/18 17:05 03/28/18 17:05 03/28/18 17:05 - Medications Medications: Current Medications Acetaminophen (Tylenol 325mg Tab) 650 mg PO Q6H PRN PRN Reason: Pain, Mild (1-3) Acetylcysteine (Acetylcysteine 20%) 4 ml IH TID [facility] Last Admin: 03/28/18 20:05 Dose: Not Given Apixaban (Eliquis) 5 mg PO BID [facility]; Protocol Last Admin: 03/28/18 09:49 Dose: 5 mg Aspirin (Ecotrin) 81 mg PO DAILY [facility] Last Admin: 03/28/18 09:49 Dose: 81 mg Budesonide (Pulmicort Respules) 0.5 mg IH 0730,1530,2330 [facility] Last Admin: 03/28/18 19:56 Dose: 0.5 mg Guaifenesin/Dextromethorphan (Robitussin Dm) 5 ml PO Q4H PRN PRN Reason: Cough Last Admin: 03/27/18 03:16 Dose: 5 ml Levalbuterol HCl (Xopenex) 0.63 mg IH BIDRESP [facility] Last Admin: 03/28/18 19:56 Dose: 0.63 mg Loratadine (Claritin) 10 mg PO DAILY [facility] Last Admin: 03/28/18 09:49 Dose: 10 mg Magnesium Oxide (Mag-Ox) 400 mg PO DAILY [facility] Last Admin: 03/28/18 09:49 Dose: 400 mg Metoprolol Succinate (Toprol Xl) 75 mg PO BRK [facility] Last Admin: 03/28/18 08:40 Dose: 75 mg Montelukast Sodium (Singulair) 10 mg PO DAILY [facility] Last Admin: 03/28/18 09:49 Dose: 10 mg Oxycodone HCl (Oxycodone Immediate Release Tab) 5 mg PO Q6H PRN PRN Reason: Pain, severe (8-10) Zolpidem Tartrate (Ambien) 5 mg PO HS PRN; Protocol PRN Reason: Insomnia Last Admin: 03/28/18 22:02 Dose: 5 mg - Labs Labs: 03/29/18 06:00 03/29/18 06:00 PT 14.6 SECONDS (9.4-12.5) H 03/29/18 06:00 INR 1.26 03/29/18 06:00 APTT 35.2 Seconds (25.1-36.5) 03/29/18 06:00 Assessment and Plan - Assessment and Plan (Free Text) Assessment: Dyspnea/Cough/Recurrent large right pleural effusion, s/p thoracentesis 03/26/18 with hydropneumothorax. Ovarian cancer, metastatic CAD/Remote PCI RBBB HBP RA H/O SIADH H/O Renal cell cancer with lung mets.,tx. with nephrectomy and interferon CVD TAA PAD/IC DVT Former Smoker Plan: As per Oncology, Int. Radiology, Pulmonary, Renal. CT or PleurX catheter today. Monitor labs, I/O, sats., etc.
[2018-03-29] MEDS: Acetylcysteine 20% Inhal Soln (4ml) IH SCH ×3 (08:15→20:07)
[2018-03-29] MEDS: Levalbuterol 0.63 MG/3 ML Inhal Soln UD IH SCH ×2 (08:15→20:03)
[2018-03-29] MEDS: Budesonide 0.5 mg/2 ml Inhal Susp UD IH SCH ×2 (08:15→20:02)
[2018-03-29] MEDS: Metoprolol Succinate 25 mg XL Tab PO SCH (09:00)
[2018-03-29] MEDS: Magnesium Oxide 400 mg Tab UD PO SCH (09:31)
--- NOTE | 2018-03-29 09:59 | RAD ---
Date of service: 03/29/2018 HISTORY: R hydropneumothorax COMPARISON: 03/28/2018 FINDINGS: LUNGS: No change in large right pneumothorax and small pleural effusion PLEURA: As above CARDIOVASCULAR: Mild cardiomegaly. Tortuous calcified aorta OSSEOUS STRUCTURES: No significant abnormalities. VISUALIZED UPPER ABDOMEN: Normal. OTHER FINDINGS: None. IMPRESSION: No change in right pneumothorax
--- NOTE | 2018-03-29 10:11 | CP.PCM.PN ---
Subjective - Date & Time of Evaluation Date of Evaluation: 03/29/18 Time of Evaluation: 09:40 - Subjective Subjective: Tao Esparza PGY2 Heme/Onc Progress Note for Dr. Lind Patient was seen and examined at bedside. she feels great, and denies any complaints. there were no acute overnight events. the patient's breathing has improved and so has her cough. she denies any drainage noted from the pleuracentesis site. Objective - Vital Signs/Intake and Output Vital Signs (last 24 hours): Temp Pulse Resp BP Pulse Ox 98.1 F 86 18 99/65 L 99 03/29/18 08:05 03/29/18 09:00 03/29/18 08:05 03/29/18 08:05 03/29/18 08:05 Intake and Output: 03/29/18 03/29/18 06:59 18:59 Intake Total 60 Balance 60 - Medications Medications: Current Medications Acetaminophen (Tylenol 325mg Tab) 650 mg PO Q6H PRN PRN Reason: Pain, Mild (1-3) Acetylcysteine (Acetylcysteine 20%) 4 ml IH TID [facility] Last Admin: 03/28/18 20:05 Dose: Not Given Apixaban (Eliquis) 5 mg PO BID [facility]; Protocol Last Admin: 03/28/18 09:49 Dose: 5 mg Aspirin (Ecotrin) 81 mg PO DAILY [facility] Last Admin: 03/29/18 09:30 Dose: 81 mg Budesonide (Pulmicort Respules) 0.5 mg IH 0730,1530,2330 [facility] Last Admin: 03/29/18 08:15 Dose: 0.5 mg Guaifenesin/Dextromethorphan (Robitussin Dm) 5 ml PO Q4H PRN PRN Reason: Cough Last Admin: 03/27/18 03:16 Dose: 5 ml Levalbuterol HCl (Xopenex) 0.63 mg IH BIDRESP [facility] Last Admin: 03/29/18 08:15 Dose: 0.63 mg Loratadine (Claritin) 10 mg PO DAILY [facility] Last Admin: 03/29/18 09:30 Dose: 10 mg Magnesium Oxide (Mag-Ox) 400 mg PO DAILY [facility] Last Admin: 03/29/18 09:31 Dose: 400 mg Metoprolol Succinate (Toprol Xl) 75 mg PO BRK [facility] Last Admin: 03/29/18 09:00 Dose: 75 mg Montelukast Sodium (Singulair) 10 mg PO DAILY [facility] Last Admin: 03/29/18 09:31 Dose: 10 mg Oxycodone HCl (Oxycodone Immediate Release Tab) 5 mg PO Q6H PRN PRN Reason: Pain, severe (8-10) Zolpidem Tartrate (Ambien) 5 mg PO HS PRN; Protocol PRN Reason: Insomnia Last Admin: 03/28/18 22:02 Dose: 5 mg - Labs Labs: 03/29/18 06:00 03/29/18 06:00 PT 14.6 SECONDS (9.4-12.5) H 03/29/18 06:00 INR 1.26 03/29/18 06:00 APTT 35.2 Seconds (25.1-36.5) 03/29/18 06:00 - Constitutional Appears: Well, Non-toxic, No Acute Distress - Head Exam Head Exam: NORMAL INSPECTION - Eye Exam Eye Exam: EOMI, Normal appearance, PERRL - ENT Exam ENT Exam: Mucous Membranes Moist - Neck Exam Neck Exam: Normal Inspection - Respiratory Exam Respiratory Exam: NORMAL BREATHING PATTERN. absent: Rales, Rhonchi, Wheezes, Respiratory Distress Additional comments: right sided posterior chest pleuracentesis site dressing c/d/i - Cardiovascular Exam Cardiovascular Exam: RRR, +S1, +S2 - GI/Abdominal Exam GI & Abdominal Exam: Soft, Normal Bowel Sounds. absent: Distended, Tenderness - Extremities Exam Extremities Exam: Full ROM. 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 The patient underwent thoracentesis with 2 L removed on 03/26/18. The patient is awaiting chest tube/Pleurx insertion by IR. Plan: - awaiting IR recs regarding chest tube/pleruX placement - monitor anemia - maintain SaO2> 92% - holding Eliquis in case of procedure today - further recs per Dr. Lind Case was reviewed and discussed with attending, Dr. Lelo Esparza PGY2
[2018-03-29 10:49] LABS: NEUTROPHIL 60 % (50.0-70.0)
[2018-03-29 10:50] LABS: BAND 8 % (0-2); EOSINOPHIL 1 % (0.0-3.0); LYMPHOCYTE 3 % (22.0-35.0); METAMYELOCYTE 12 %; MONOCYTE 16 % (1.0-6.0); PLATELET ESTIMATE NORMAL (NORMAL)
[2018-03-29] MEDS ORDERED: Midazolam 2 MG/2 ML VIAL ONE (11:23)
[2018-03-29] MEDS ORDERED: Lidocaine 1% Inj (20ml) ONE (11:24)
[2018-03-29] MEDS: Enoxaparin 60 mg Syringe SC SCH (13:30)
--- NOTE | 2018-03-29 18:58 | CT ---
PROCEDURE: CT-guided right chest tube placement HISTORY: Metastatic pelvic malignancy. Recent right thoracentesis. Moderate size residual right hydro pneumothorax. Needs chest tube. PHYSICIAN(S): Mario Yee MD. TECHNIQUE: The relative risks and indications for the procedure were explained to the patient and informed consent obtained. The patient was placed in a slight left decubitus position on the CT scanner and preliminary images through the mid to lower chest performed. This revealed a 100 sized right hydropneumothorax.. A right intercostal approach was selected in the area prepped and draped usual sterile fashion. Conscious sedation monitoring were provided throughout the procedure by a nurse. Skin and soft tissues were prepped and draped usual sterile fashion. 1 percent xylocaine was used SI skin soft tissues. An 18 gauge needle was advanced into the right pleural space laterally and its position confirmed with aspiration of air and fluid. A 0.035 guidewire was advanced posteriorly and superiorly. Sequential dilatation was performed with subsequent placement of a 12 Czech pigtail right chest tube. The tube was secured and placed to 30 cm H2O low continuous suction. IMPRESSION: 1. CT-guided right chest tube placement. Follow-up chest x-rays will be obtained. One complete expansion is confirmed, the chest tube may be exchanged over wire for a tunneled pleural catheter.
--- NOTE | 2018-03-29 23:32 | PN ---
DATE: 03/29/2018 REFERRING PHYSICIAN: Luis Zafar MD SUBJECTIVE: She is lying in the bed, feels much better status post right-sided chest tube draining fluid. Cough is better. No nausea, no vomiting, diarrhea, leg pain, or leg swelling. OBJECTIVE: GENERAL: In no acute distress. VITAL SIGNS: Temperature is 98, heart rate is 82, respiratory rate is 18, blood pressure 106/67, pulse ox 94% on nasal cannula. HEENT: Moist mucous membranes. No ulcer or thrush noted. NECK: Supple. No JVD. LUNGS: Better airflow, right-sided chest tube. HEART: S1 and S2. ABDOMEN: Soft, nontender. No organomegaly. EXTREMITIES: No edema. NEUROLOGIC: Awake, alert, follows simple command. MEDICATIONS: She is on Mucomyst inhaler three times a day, Ambien 5 mg at bedtime p.r.n., Claritin 10 mg daily, aspirin 81 mg daily, Eliquis 5 mg twice a day, Lovenox 60 mg every 12 hours, magnesium oxide 400 mg daily, oxycodone immediate release 5 mg every 6 hours p.r.n., Pulmicort inhaler twice a day, Robitussin DM 5 mL every 4 hour p.r.n., Singulair 10 mg daily, Toprol XL 75 mg daily, Tylenol p.r.n., Xopenex inhaler twice a day. LABORATORY DATA: Shows hemoglobin 9.3, hematocrit 27.5, WBC 12.4, platelet count is 319. INR 1.26, PTT 35, sodium 134, potassium 4.4, chloride 101, bicarbonate 28, BUN 19, creatinine 0.8, calcium is 8.1, magnesium 2. AST 33, ALT 38, alk phos is 85. Albumin is 2.8. Has a CAT scan of the chest done today, which shows CT guided right chest tube in place. 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 Follow up x-ray. We will follow with you. Concepcion Love MD [facility] # [id number]
[2018-03-30] MEDS: Enoxaparin 60 mg Syringe SC SCH ×2 (00:19→14:22)
--- NOTE | 2018-03-30 07:35 | CP.PCM.PN ---
Subjective - Date & Time of Evaluation Date of Evaluation: 03/30/18 Time of Evaluation: 07:00 - Subjective Subjective: Stable on 3R. Still mild cough. She feels OK. No SOB or CP reported. S/P CT yesterday. V/S noted. RSR PE: Lungs: decreased BS right side Cor: S1S2 Abd.: soft Ext.: no edema Neuro.: alert Labs 03/29 noted: H/H = 9.3/27.5, WBC= 12,400, BMP = OK, Mg.++= 2.0 Echo noted. CXR today: not read yet. Right lung partially re-expanded Objective - Vital Signs/Intake and Output Vital Signs (last 24 hours): Temp Pulse Resp BP Pulse Ox 98.0 F 82 20 111/71 94 L 03/30/18 00:27 03/30/18 00:27 03/30/18 00:27 03/30/18 00:27 03/30/18 00:27 Intake and Output: 03/30/18 03/30/18 06:59 18:59 Intake Total 120 Output Total 115 Balance 5 - Medications Medications: Current Medications Acetaminophen (Tylenol 325mg Tab) 650 mg PO Q6H PRN PRN Reason: Pain, Mild (1-3) Apixaban (Eliquis) 5 mg PO BID [facility]; Protocol Last Admin: 03/28/18 09:49 Dose: 5 mg Aspirin (Ecotrin) 81 mg PO DAILY [facility] Last Admin: 03/29/18 09:30 Dose: 81 mg Budesonide (Pulmicort Respules) 0.5 mg IH 0730,1530,2330 [facility] Last Admin: 03/29/18 20:02 Dose: 0.5 mg Enoxaparin Sodium (Lovenox) 60 mg SC Q12H [facility]; Protocol Last Admin: 03/30/18 00:19 Dose: 60 mg Guaifenesin/Dextromethorphan (Robitussin Dm) 5 ml PO Q4H PRN PRN Reason: Cough Last Admin: 03/27/18 03:16 Dose: 5 ml Levalbuterol HCl (Xopenex) 0.63 mg IH BIDRESP [facility] Last Admin: 03/29/18 20:03 Dose: 0.63 mg Loratadine (Claritin) 10 mg PO DAILY [facility] Last Admin: 03/29/18 09:30 Dose: 10 mg Magnesium Oxide (Mag-Ox) 400 mg PO DAILY [facility] Last Admin: 03/29/18 09:31 Dose: 400 mg Metoprolol Succinate (Toprol Xl) 75 mg PO BRK [facility] Last Admin: 03/29/18 09:00 Dose: 75 mg Montelukast Sodium (Singulair) 10 mg PO DAILY [facility] Last Admin: 03/29/18 09:31 Dose: 10 mg Oxycodone HCl (Oxycodone Immediate Release Tab) 5 mg PO Q6H PRN PRN Reason: Pain, severe (8-10) Last Admin: 03/30/18 03:34 Dose: 5 mg Zolpidem Tartrate (Ambien) 5 mg PO HS PRN; Protocol PRN Reason: Insomnia Last Admin: 03/29/18 21:27 Dose: 5 mg - Labs Labs: 03/29/18 06:00 03/29/18 06:00 PT 14.6 SECONDS (9.4-12.5) H 03/29/18 06:00 INR 1.26 03/29/18 06:00 APTT 35.2 Seconds (25.1-36.5) 03/29/18 06:00 Assessment and Plan - Assessment and Plan (Free Text) Assessment: Dyspnea/Cough/Recurrent large right pleural effusion, s/p thoracentesis 03/26/18 with hydropneumothorax, s/p CT 03/29. Ovarian cancer, metastatic CAD/Remote PCI RBBB HBP RA H/O SIADH H/O Renal cell cancer with lung mets.,tx. with nephrectomy and interferon CVD TAA PAD/IC DVT Former Smoker Plan: As per Oncology, Int. Radiology, Pulmonary, Renal. CT > PleurX catheter, as per Dr. Yee Monitor labs, I/O, sats., etc.
[2018-03-30] MEDS: Budesonide 0.5 mg/2 ml Inhal Susp UD IH SCH ×3 (08:46→23:30)
[2018-03-30] MEDS: Levalbuterol 0.63 MG/3 ML Inhal Soln UD IH SCH ×2 (08:46→20:15)
--- NOTE | 2018-03-30 08:48 | RAD ---
Date of service: 03/30/2018 HISTORY: rt chest tube COMPARISON: 03/29/2018 FINDINGS: Right IJV line terminates in the right atrium. LUNGS: Interval re-expansion of the right lung. There is asymmetric enlargement of the right hilum with abnormal perihilar soft tissue. The left lung is well inflated and clear. Minimal atelectasis in the left lower lobe PLEURA: Interval placement of right chest tube. There is decrease in size of right pneumothorax, re-expansion of lung with residual small pneumothorax. CARDIOVASCULAR: Mild cardiomegaly. There is unfolding of the aorta. There atherosclerotic aortic calcifications. OSSEOUS STRUCTURES: No significant abnormalities. VISUALIZED UPPER ABDOMEN: Normal. OTHER FINDINGS: None. IMPRESSION: Status post right chest tube placement interval reexpansion of the lung and decrease in size of the pneumothorax with residual small pneumothorax. Asymmetric enlargement of the right hilum with abnormal soft tissue which could be related to perihilar pneumonia, mass or adenopathy.
--- NOTE | 2018-03-30 08:59 | PN ---
DATE: 03/29/2018 SUBJECTIVE: The patient is seen sitting in chair. She is awake, she is alert. She is comfortable.. PHYSICAL EXAMINATION: GENERAL: Elderly lady sitting in chair. VITAL SIGNS: Blood pressure 100/58, heart rate 74, respiratory rate 18, temperature 98.6. HEENT: Normocephalic, atraumatic, positive pallor. NECK: Supple, no JVD. LUNGS: Bilateral equal air entry, bilateral equal expansion. CARDIAC: S1 and S2, regular rate and rhythm, no murmur, no rub. ABDOMEN: Obese, distended, soft, nontender, bowel sounds present. EXTREMITIES: No lower extremity edema. LABORATORY DATA: WBC , hemoglobin 9.3, hematocrit 27.5, platelets 319. Sodium 134, potassium 4.4, chloride 101, CO2 of 28, BUN 19, creatinine 0.8, glucose 95, calcium 8.1, magnesium 2. MEDICATIONS: List reviewed. ASSESSMENT: 1. Hypomagnesemia, resolved. 2. Hyperkalemia, resolved. 3. Metastatic ovarian cancer. 4. History of metastatic renal cell cancer. PLAN: 1. Continue p.o. magnesium. 2. The patient is scheduled for PleurX catheter placement today. 3. . Deanna Ivy MD
--- NOTE | 2018-03-30 09:09 | CP.PCM.PN ---
Subjective - Date & Time of Evaluation Date of Evaluation: 03/30/18 Time of Evaluation: 07:29 - Subjective Subjective: Tao Esparza PGY2 Heme/Onc Progress Note for Dr. Lind Patient was seen and examined at bedside. The patient underwent a CT-guided chest tube insertion yesterday. She is doing well today with no complaints of cough, fevers/chills, nausea/vomiting, or chest pain. She has a mild discomfort from the site of the chest tube. Per Dr. Yee's note, the patient will have a pleural drain (aspira catheter) placed after re-expansion of the lung with the chest tube. Objective - Vital Signs/Intake and Output Vital Signs (last 24 hours): Temp Pulse Resp BP Pulse Ox 98.5 F 75 20 100/60 100 03/30/18 07:32 03/30/18 07:32 03/30/18 07:32 03/30/18 07:32 03/30/18 07:32 Intake and Output: 03/30/18 03/30/18 06:59 18:59 Intake Total 120 Output Total 115 Balance 5 - Medications Medications: Current Medications Acetaminophen (Tylenol 325mg Tab) 650 mg PO Q6H PRN PRN Reason: Pain, Mild (1-3) Apixaban (Eliquis) 5 mg PO BID [facility]; Protocol Last Admin: 03/28/18 09:49 Dose: 5 mg Aspirin (Ecotrin) 81 mg PO DAILY [facility] Last Admin: 03/29/18 09:30 Dose: 81 mg Budesonide (Pulmicort Respules) 0.5 mg IH 0730,1530,2330 [facility] Last Admin: 03/30/18 08:46 Dose: Not Given Enoxaparin Sodium (Lovenox) 60 mg SC Q12H [facility]; Protocol Last Admin: 03/30/18 00:19 Dose: 60 mg Guaifenesin/Dextromethorphan (Robitussin Dm) 5 ml PO Q4H PRN PRN Reason: Cough Last Admin: 03/27/18 03:16 Dose: 5 ml Levalbuterol HCl (Xopenex) 0.63 mg IH BIDRESP [facility] Last Admin: 03/30/18 08:46 Dose: Not Given Loratadine (Claritin) 10 mg PO DAILY [facility] Last Admin: 10/15/18 09:30 Dose: 10 mg Magnesium Oxide (Mag-Ox) 400 mg PO DAILY [facility] Last Admin: 03/29/18 09:31 Dose: 400 mg Metoprolol Succinate (Toprol Xl) 75 mg PO BRK [facility] Last Admin: 03/29/18 09:00 Dose: 75 mg Montelukast Sodium (Singulair) 10 mg PO DAILY [facility] Last Admin: 03/29/18 09:31 Dose: 10 mg Oxycodone HCl (Oxycodone Immediate Release Tab) 5 mg PO Q6H PRN PRN Reason: Pain, severe (8-10) Last Admin: 03/30/18 03:34 Dose: 5 mg Zolpidem Tartrate (Ambien) 5 mg PO HS PRN; Protocol PRN Reason: Insomnia Last Admin: 03/29/18 21:27 Dose: 5 mg - Labs Labs: 03/29/18 06:00 03/29/18 06:00 PT 14.6 SECONDS (9.4-12.5) H 03/29/18 06:00 INR 1.26 03/29/18 06:00 APTT 35.2 Seconds (25.1-36.5) 03/29/18 06:00 - Additional Findings Additional findings: - Constitutional Appears: Well, Non-toxic, No Acute Distress - Head Exam Head Exam: NORMAL INSPECTION - Eye Exam Eye Exam: EOMI, Normal appearance, PERRL - ENT Exam ENT Exam: Mucous Membranes Moist - Neck Exam Neck Exam: Normal Inspection - Respiratory Exam Respiratory Exam: NORMAL BREATHING PATTERN. absent: Rales, Rhonchi, Wheezes, Respiratory Distress Additional comments: right chest tube placed, draining to gravity, 1100 cc serosanguinous output - Cardiovascular Exam Cardiovascular Exam: RRR, +S1, +S2 - GI/Abdominal Exam GI & Abdominal Exam: Soft, Normal Bowel Sounds. absent: Distended, Tenderness - Extremities Exam Extremities Exam: Full ROM. absent: Pedal Edema - Back Exam Back Exam: NORMAL INSPECTION - Neurological Exam Neurological Exam: Alert, Awake, Oriented x3 - Psychiatric Exam Psychiatric exam: Normal Mood - Skin Skin Exam: Normal Color, Warm Assessment and Plan - Assessment and Plan (Free Text) Assessment: 78-year-old female with a PMH of malarian duct malignancy, SCLC and RCC s/p nephrectomy, thoracic aorta aneurysm, CAD and DVT who presented for recurrent right-sided pleural effusion causing shortness of breath. The patient underwent thoracentesis with 2 L removed on 03/26/18, and had right chest tube placed for re-expansion by IR on 03/29. Upon re-expansion, the chest tube will be replaced with an Aspira catheter. Plan: - AM CXR reviewed; showed interval re-expansion of lung and decrease in size of pneumothorax - holding Eliquis; started on Lovenox therapeutic dose - Further recs per cardio, pulm and nephro - cont ASA daily - cont Pulmicort, Robittusin PRN, Xopenex, Claritin, and Singulair - cont Toprol - monitor anemia; labs reviewed, and will re-order CBC - tramadol prn pain - maintain SaO2> 92% - further recs per Dr. Lind Case was reviewed and discussed with attending, Dr. Lelo Esparza PGY2
[2018-03-30] MEDS: Metoprolol Succinate 25 mg XL Tab PO SCH (09:34)
[2018-03-30] MEDS: Magnesium Oxide 400 mg Tab UD PO SCH (09:34)
[2018-03-30 09:56] LABS: BASO # 0.02 K/mm3 (0.0-2.0); BASO % 0.4 % (0.0-3.0); EOS % 0.4 % (1.5-5.0); GRAN # 3.49 (1.4-6.5); GRAN % 76.8 % (50.0-68.0); LYMPH # 0.6 (1.2-3.4); LYMPH % 13.2 % (22.0-35.0); MEAN CELL VOLUME 104.5 fl (80.0-105.0); MEAN CORPUSCULAR HEMOGLOBIN 33.9 pg (25.0-35.0); MEAN CORPUSCULAR HGB CONC 32.5 g/dl (31.0-37.0); MEAN PLATELET VOLUME 9.2 fl (7.0-11.0); MONO # 0.4 (0.1-0.6); MONO % 9.2 % (1.0-6.0); RBC 1.12 10^6/uL (3.5-6.1); WHITE BLOOD COUNT 4.6 10^3/ul (4.5-11.0)
[2018-03-30 10:01] LABS: HEMOGLOBIN 3.8 g/dL (12.0-16.0)
[2018-03-30 10:13] LABS: ALBUMIN 2.6 g/dL (3.0-4.8); ALT/SGPT 39 U/L (7-56); AST/SGOT 24 U/L (14-36); BLOOD UREA NITROGEN 20 mg/dL (7-21); CALCIUM 7.4 mg/dL (8.4-10.5); GFR NON-AFRICAN AMERICAN > 60
[2018-03-30 12:16] LABS: HEMOGLOBIN 9.4 g/dL (12.0-16.0); MEAN CELL VOLUME 101.4 fl (80.0-105.0); MEAN CORPUSCULAR HEMOGLOBIN 34.1 pg (25.0-35.0); MEAN CORPUSCULAR HGB CONC 33.6 g/dl (31.0-37.0); RBC 2.76 10^6/uL (3.5-6.1); RED CELL DISTRIBUTION WIDTH 14.1 % (11.5-14.5); WHITE BLOOD COUNT 11.5 10^3/ul (4.5-11.0)
--- NOTE | 2018-03-30 18:27 | PN ---
DATE: 03/30/2018 SUBJECTIVE: The patient is currently seen lying comfortable in bed. She has a chest tube that was placed in the right lung. She had successful resolution of her large right-sided pneumothorax. Today's chest x-ray shows significant improvement. MEDICATIONS: Medication list reviewed. The patient is on Ambien, Claritin, Ecotrin, Lovenox, Eliquis is on hold, mag oxide, Pulmicort Respules, Robitussin DM p.r.n., Singulair, Toprol, Ultram p.r.n., and Xopenex. OBJECTIVE: INTAKE/OUTPUT: Intake is 990, output is 1045. VITAL SIGNS: Blood pressure is 100/60, temperature 98.5, respiratory rate 20, pulse of 75, oxygen saturation is 100%. HEENT: Sow her be normocephalic, atraumatic. Conjunctivae are pale. Sclerae are nonicteric. NECK: Supple. No neck vein distention. CHEST: Improved breath sounds at her right base. Clear to auscultation and percussion. Port in her right chest wall and chest tube in the right lateral chest area. CARDIAC: S1 and S2, regular. Positive /MR/TR. ABDOMEN: Soft. Bowel sounds normal. No rebound, guarding, or masses. EXTREMITIES: Show no lower extremity cyanosis, clubbing, or edema. LABORATORY DATA AND IMAGING: CBC today; white blood cell count higher at 11.5, hemoglobin stable at 9.4. Platelet count is 445,000. Coags; last PT 14.6 with an INR of 1.26. Chemistry showed normal electrolytes. Potassium is now normal at 4.1 up from 3.5. BUN 20 with a creatinine of 0.9. Glucose is 140. Calcium 7.4, corrects to normal for an albumin of 2.6. Magnesium level was 1.4 and with supplements, it is up to 2. Iron sat 37%. Liver enzymes are normal. Microbiology, no cultures available for comment. ASSESSMENT: 1. Status post hypomagnesemia, resolved. 2. Status post both hypo and hyperkalemia. She is now normokalemic, she has normal potassium levels. 3. History of metastatic ovarian cancer. 4. History of metastatic renal cell cancer, status post right nephrectomy with lung mass. 5. Pneumothorax, right chest wall, significantly improved with placement of a chest tube. 6. History of hypertension. Blood pressure is controlled on beta-олег therapy alone. 7. History of arteriosclerotic heart disease, currently stable. Patient being followed by Cardiology. 8. A 5.2 cm thoracic aortic aneurysm that appears to be stable. PLAN: 1. Agree with continuation of oral magnesium supplements. 2. Continue to monitor the patient post chest tube placement. 3. From an electrolyte and renal standpoint, the patient appears to be stable. 4. Would continue monitoring blood work on an intermittent basis and continue magnesium supplements.. Linden Hdez MD
[2018-03-31] MEDS: Enoxaparin 60 mg Syringe SC SCH ×2 (00:16→12:06)
[2018-03-31] MEDS: guaiFENesin DM 100 mg-10 mg/5 ml UD PO PRN (00:22)
--- NOTE | 2018-03-31 01:05 | PN ---
DATE: 03/30/2018 PULMONARY PROGRESS NOTE REFERRING PHYSICIAN: Luis Zafar MD. SUBJECTIVE: The patient is sitting up in a chair. Night was unremarkable. Feels better. Still draining fluid in the right chest. Cough is better. No nausea, no vomiting, no diarrhea, no leg pain or leg swelling. OBJECTIVE: GENERAL: In no acute distress. VITAL SIGNS: Temp is 98, heart rate is 80, respiratory rate is 20, blood pressure 103/69, pulse ox 98% on 4 L nasal cannula. HEENT: Moist mucous membrane. No ulcer or thrush noted. NECK: Supple. No JVD. LUNGS: Decreased breath on the bases. Right-sided chest tube with few rhonchi. HEART: S1 and S2. ABDOMEN: Soft, nontender. No organomegaly. EXTREMITIES: There is no edema. NEUROLOGICAL: Awake and alert. Follows simple command. MEDICATIONS: She is on Ambien 5 mg at bedtime p.r.n., Claritin 10 mg daily, Ecotrin 820 g daily, Eliquis 5 mg twice a day, Lovenox 60 mg subcu twice a day, mag oxide 400 mg daily, budesonide inhaled three times a day, Robitussin DM 5 mL every 4 hours p.r.n., Singulair 10 mg daily, Toprol-XL 75 mg daily, Ultram is at 50 mg three times a day p.r.n., Xopenex inhaled twice a day. LABORATORY DATA: Shows hemoglobin 9.4, hematocrit 28, WBC 11.5, platelet count is 445. Sodium 133, potassium 4.1, chloride 104, bicarbonate 23, BUN 20, creatinine 0.5, glucose 140, calcium is 7.4, AST 24, ALT 39, alk phos is 78, albumin is 2.6. Chest x-ray this morning shows status post right chest tube placement. Interval re-expansion of the lung and decrease in size of the pneumothorax with residual small pneumothorax. There is a large right hilum with abnormal soft tissue, which could be related to perihilar mass and tumor. 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 Pulmonary point of view, doing okay. Continue bronchodilator. Keep head at 45 degrees. Gastric prophylaxis, anticoagulation, incentive spirometer. Thank you and we will follow with you. Concepcion Love MD
[2018-03-31 06:13] LABS: BASO # 0.11 K/mm3 (0.0-2.0); BASO % 0.9 % (0.0-3.0); EOS # 0.1 (0.0-0.7); EOS % 0.4 % (1.5-5.0); GRAN # 8.84 (1.4-6.5); GRAN % 74.7 % (50.0-68.0); LYMPH # 1.6 (1.2-3.4); LYMPH % 13.5 % (22.0-35.0); MEAN CELL VOLUME 100.8 fl (80.0-105.0); MEAN CORPUSCULAR HGB CONC 33.7 g/dl (31.0-37.0); MEAN PLATELET VOLUME 9.7 fl (7.0-11.0); MONO # 1.3 (0.1-0.6); MONO % 10.5 % (1.0-6.0); RBC 2.65 10^6/uL (3.5-6.1); RED CELL DISTRIBUTION WIDTH 13.8 % (11.5-14.5); WHITE BLOOD COUNT 11.9 10^3/ul (4.5-11.0)
[2018-03-31 07:12] LABS: ALBUMIN 2.6 g/dL (3.0-4.8); ALT/SGPT 36 U/L (7-56); AST/SGOT 27 U/L (14-36); BLOOD UREA NITROGEN 28 mg/dL (7-21); CALCIUM 8.3 mg/dL (8.4-10.5); GFR NON-AFRICAN AMERICAN 53
[2018-03-31] MEDS: Budesonide 0.5 mg/2 ml Inhal Susp UD IH SCH ×3 (07:58→23:30)
[2018-03-31] MEDS: Levalbuterol 0.63 MG/3 ML Inhal Soln UD IH SCH ×2 (07:58→20:09)
--- NOTE | 2018-03-31 09:31 | PN ---
DATE: 03/31/2018 SUBJECTIVE: The patient is seen lying in bed on the 3R. She is currently comfortable. Chest tube remains in place. She has a nonproductive cough. She denies any chest pain. CURRENT MEDICATIONS: Include Claritin, Ecotrin, Lovenox, magnesium supplements, Pulmicort, Singulair, Toprol-XL 75 mg daily and Xopenex. OBJECTIVE: GENERAL: She is an elderly woman, appears comfortable at the present time. VITAL SIGNS: Her blood pressure is 104/70 with a pulse of 80, respirations are 16. She is afebrile. HEENT: No JVD. CHEST: A few bilateral scattered rhonchi heard. HEART: Systolic murmur is present in the lower left sternal border. ABDOMEN: Soft, nontender, normoactive bowel sounds. EXTREMITIES: No edema. DIAGNOSTIC DATA: Potassium 4.6, BUN and creatinine 28 and 1. White count 11.9, hemoglobin and hematocrit of 9 and 26.7 with a platelet count of 479,000. Chest x-ray: Right pleural effusion reduced in size following chest tube placement. Small pneumothorax present. IMPRESSION: 1. Large right pleural effusion, status post chest tube placement. Diagnostic studies pending. 2. History of metastatic ovarian cancer. 3. Coronary artery disease, status post remote percutaneous coronary intervention. 4. History of renal cell carcinoma with pulmonary metastasis. RECOMMENDATIONS: Her current management should continue as planned. The PleurX catheter has been placed and will be used for management of her recurrent effusion. Conservative cardiac care is advised. We will be happy to follow along as needed. Jonel Calles MD
[2018-03-31] MEDS: Metoprolol Succinate 25 mg XL Tab PO SCH (09:57)
[2018-03-31] MEDS: Magnesium Oxide 400 mg Tab UD PO SCH (09:57)
--- NOTE | 2018-03-31 11:10 | CP.PCM.PN ---
Subjective - Date & Time of Evaluation Date of Evaluation: 03/31/18 Time of Evaluation: 09:10 - Subjective Subjective: Tao Esparza PGY2 Heme/Onc Progress Note for Dr. Lind Patient was seen and examined at bedside. The patient's breathing comfortably and denies any shortness of breath, cough, or chest pain. Her chest tube output is 1450 total output but rate has decreased. The case was discussed with Dr. Yee regarding exchanging the chest tube for the catheter and he said he will review today's CXR for re-expansion prior to making a decision. No other overnight events. Objective - Vital Signs/Intake and Output Vital Signs (last 24 hours): Temp Pulse Resp BP Pulse Ox 97.4 F L 98 H 20 108/67 98 03/30/18 16:15 03/31/18 09:57 03/30/18 16:15 03/31/18 09:57 03/30/18 16:15 Intake and Output: 03/31/18 03/31/18 06:59 18:59 Intake Total 1180 Output Total 70 Balance 1110 - Medications Medications: Current Medications Apixaban (Eliquis) 5 mg PO BID [facility]; Protocol Last Admin: 03/28/18 09:49 Dose: 5 mg Aspirin (Ecotrin) 81 mg PO DAILY [facility] Last Admin: 03/31/18 09:57 Dose: 81 mg Budesonide (Pulmicort Respules) 0.5 mg IH 0730,1530,2330 [facility] Last Admin: 03/31/18 07:58 Dose: 0.5 mg Enoxaparin Sodium (Lovenox) 60 mg SC Q12H [facility]; Protocol Last Admin: 03/31/18 00:16 Dose: 60 mg Guaifenesin/Dextromethorphan (Robitussin Dm) 5 ml PO Q4H PRN PRN Reason: Cough Last Admin: 03/31/18 00:22 Dose: 5 ml Levalbuterol HCl (Xopenex) 0.63 mg IH BIDRESP [facility] Last Admin: 03/31/18 07:58 Dose: 0.63 mg Loratadine (Claritin) 10 mg PO DAILY [facility] Last Admin: 03/31/18 09:57 Dose: 10 mg Magnesium Oxide (Mag-Ox) 400 mg PO DAILY [facility] Last Admin: 10/17/18 09:57 Dose: 400 mg Metoprolol Succinate (Toprol Xl) 75 mg PO BRK [facility] Last Admin: 03/31/18 09:57 Dose: 75 mg Montelukast Sodium (Singulair) 10 mg PO DAILY [facility] Last Admin: 03/31/18 09:57 Dose: 10 mg Tramadol HCl (Ultram) 50 mg PO TID PRN PRN Reason: Pain, moderate (4-7) Last Admin: 03/30/18 18:56 Dose: 50 mg Zolpidem Tartrate (Ambien) 5 mg PO HS PRN; Protocol PRN Reason: Insomnia Last Admin: 03/30/18 21:05 Dose: 5 mg - Labs Labs: 03/31/18 05:30 03/31/18 05:30 PT 14.6 SECONDS (9.4-12.5) H 03/29/18 06:00 INR 1.26 03/29/18 06:00 APTT 35.2 Seconds (25.1-36.5) 03/29/18 06:00 - Additional Findings Additional findings: - Constitutional Appears: Well, Non-toxic, No Acute Distress - Head Exam Head Exam: NORMAL INSPECTION - Eye Exam Eye Exam: EOMI, Normal appearance, PERRL - ENT Exam ENT Exam: Mucous Membranes Moist - Neck Exam Neck Exam: Normal Inspection - Respiratory Exam Respiratory Exam: NORMAL BREATHING PATTERN. absent: Rales, Rhonchi, Wheezes, Respiratory Distress Additional comments: right chest tube placed, 1450 cc serosanguinous output - Cardiovascular Exam Cardiovascular Exam: RRR, +S1, +S2 - GI/Abdominal Exam GI & Abdominal Exam: Soft, Normal Bowel Sounds. absent: Distended, Tenderness - Extremities Exam Extremities Exam: Full ROM. absent: Pedal Edema - Back Exam Back Exam: NORMAL INSPECTION - Neurological Exam Neurological Exam: Alert, Awake, Oriented x3 - Psychiatric Exam Psychiatric exam: Normal Mood - Skin Skin Exam: Normal Color, Warm Assessment and Plan - Assessment and Plan (Free Text) Assessment: 78-year-old female with a PMH of malarian duct malignancy, SCLC, RCC s/p nephrectomy, thoracic aorta aneurysm, CAD and DVT who presented for recurr ent right-sided pleural effusion causing shortness of breath. The patient underwent thoracentesis with 2 L removed on 03/26/18, and had right chest tube placed for re-expansion by IR on 03/29. Upon re-expansion, the chest tube will be replaced with an Aspira catheter. Dr. Yee is following CXR's to monitor re- expansion. Plan: - AM CXR reviewed, pending official read - Dr. Yee will determine when to place catheter to be left in - holding Eliquis; started on Lovenox therapeutic dose - Further recs per cardio, pulm and nephro - cont ASA daily - cont Pulmicort, Robittusin PRN, Xopenex, Claritin, and Singulair - cont Toprol - monitor anemia; labs reviewed - tramadol prn pain - maintain SaO2> 92% - further recs per Dr. Lind Case was reviewed and discussed with attending, Dr. Lelo Esparza PGY2
--- NOTE | 2018-03-31 13:03 | RAD ---
Date of service: 03/31/2018 HISTORY: eval pneumothorax COMPARISON: March 30, 2018 FINDINGS: LUNGS: No active pulmonary disease. PLEURA: Chest tube in stable position in the right pleural space. Stable small apical pneumothorax. CARDIOVASCULAR: Stable cardiomegaly. Dilated aorta, aneurysmal dilatation of the ascending aorta and arch. Venous access catheter in stable, satisfactory position. OSSEOUS STRUCTURES: No significant abnormalities. VISUALIZED UPPER ABDOMEN: Normal. OTHER FINDINGS: None. IMPRESSION: Near complete re-expansion of the right lung. Stable position of chest tube in the right pleural space.
--- NOTE | 2018-03-31 15:38 | PN ---
DATE: 03/31/2018 SUBJECTIVE: The patient is seen sitting in chair. She is awake, she is alert, she is comfortable. She denies any pain. She denies any shortness of breath. She denies any diarrhea or constipation. She denies any urinary complaints. PHYSICAL EXAMINATION: GENERAL: Elderly lady sitting in bed. VITAL SIGNS: Blood pressure 108/66, heart rate 98, respiratory rate 20, temperature 97.4. HEENT: Normocephalic, atraumatic, positive pallor. NECK: Supple, no JVD. LUNGS: Bilateral equal air entry, bilateral equal expansion, no rales. Right-sided chest tube. CARDIAC: S1 and S2, regular rate and rhythm, no murmur, no rub. ABDOMEN: Soft, nondistended, nontender, bowel sounds present. EXTREMITIES: No lower extremity edema. INTAKE AND OUTPUT: 1180/70? LABORATORY DATA: WBC 11.9, hemoglobin 9, hematocrit 27, platelets 479. Sodium 133, potassium 4.6, chloride 100, CO2 of 29, BUN 28, creatinine 1, glucose 104, calcium 8.3, phosphorus 3.7, magnesium 2.1, albumin 2.6. CURRENT MEDICATIONS: Ambien, Claritin, Ecotrin, Eliquis 5 b.i.d., Lovenox, mag oxide, guaifenesin, Singulair, Toprol XL, Ultram, and Xopenex. ASSESSMENT: 1. Resolved hypomagnesemia. 2. Mild hyponatremia. 3. Resolved hyperkalemia. 4. History of metastatic ovarian carcinoma. 5. History of metastatic renal cell carcinoma. 6. Recurrent pleural effusion/pneumothorax, now with chest tube placement. 7. History of hypertension, well controlled. 8. Coronary artery disease. 9. A 5.2 cm thoracic aortic aneurysm. PLAN: 1. Continue beta-олег. 2. Continue magnesium supplementation. 3. The patient is instructed not to drink excessive amounts of free fluids. Deanna Ivy MD
--- NOTE | 2018-03-31 16:15 | PN ---
DATE: 03/31/2018 PULMONARY PROGRESS NOTE REFERRING PHYSICIAN: Luis Zafar MD. SUBJECTIVE: She is out of bed to chair, having lunch. Night was unremarkable. Still has a chest tube draining cloudy fluid. No hemoptysis. No hematemesis. No hematuria, diarrhea, leg pain, leg swelling. OBJECTIVE: GENERAL: In no acute distress. VITAL SIGNS: Temperature is 98, heart rate is 98, respiratory rate is 20, blood pressure 108/67, pulse ox 97% on 4 L nasal cannula. HEENT: Moist mucous membrane. Crowded airway. NECK: Supple. No JVD. LUNGS: Have bilateral crackles at the right side of the chest. HEART: S1 and S2. ABDOMEN: Soft and nontender. No organomegaly. EXTREMITIES: There is no edema. NEUROLOGICAL: Awake and alert. Follows simple command. MEDICATIONS: She is on Ambien 5 mg at bedtime p.r.n., Claritin 10 mg daily, Ecotrin 81 mg daily, Eliquis 5 mg twice a day, Lovenox 60 mg twice a day, Eliquis is placed on hold, mag oxide 400 mg daily, Pulmicort inhaled three times a day, Robitussin DM 5 mL every 4 hours p.r.n., Singulair 10 mg daily, Toprol-XL 75 mg daily, Ultram 650 mg three times a day, Xopenex inhaled every 8 hours. LABORATORY DATA: Shows hemoglobin 9, hematocrit 26.7, WBC 11.9, platelet count is 479. Sodium 133, potassium 4.6, chloride 100, bicarbonate 29, BUN 28, creatinine 1, glucose 104, calcium is 8.3, magnesium is 2.1, AST 27, ALT 36, alk phos is 83, albumin is 2.6. Chest x-ray done today shows near complete reexpansion of the right lung, stable positioning of the chest tube in the right pleural base. 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 Pulmonary point of view, doing well. Spoke to nursing staff. Requested to give her incentive spirometer. Continue nebulizer treatment, , gastric prophylaxis, anticoagulation, fall precaution. Oncology followup. Thank you and we will follow with you. Concepcion Love MD [facility] # [phone]
[2018-04-01] MEDS: guaiFENesin DM 100 mg-10 mg/5 ml UD PO PRN (04:10)
[2018-04-01] MEDS: Enoxaparin 60 mg Syringe SC SCH ×2 (05:54→18:15)
[2018-04-01] MEDS ORDERED: MethylPREDNISolone 40 mg Vial IVP ONE (07:38)
[2018-04-01] MEDS: Levalbuterol 0.63 MG/3 ML Inhal Soln UD IH SCH ×2 (07:55→19:49)
[2018-04-01] MEDS: Budesonide 0.5 mg/2 ml Inhal Susp UD IH SCH ×2 (07:56→19:49)
[2018-04-01 08:24] LABS: BASO # 0.07 K/mm3 (0.0-2.0); BASO % 0.6 % (0.0-3.0); EOS % 0.3 % (1.5-5.0); GRAN # 9.85 (1.4-6.5); GRAN % 79.9 % (50.0-68.0); HEMOGLOBIN 9.2 g/dL (12.0-16.0); LYMPH # 1.6 (1.2-3.4); MEAN CELL VOLUME 100.4 fl (80.0-105.0); MEAN CORPUSCULAR HEMOGLOBIN 34.1 pg (25.0-35.0); MEAN CORPUSCULAR HGB CONC 33.9 g/dl (31.0-37.0); MEAN PLATELET VOLUME 9.3 fl (7.0-11.0); MONO # 0.8 (0.1-0.6); MONO % 6.2 % (1.0-6.0); RBC 2.7 10^6/uL (3.5-6.1); WHITE BLOOD COUNT 12.3 10^3/ul (4.5-11.0)
[2018-04-01 08:44] LABS: ALBUMIN 2.9 g/dL (3.0-4.8); CALCIUM 8.5 mg/dL (8.4-10.5)
--- NOTE | 2018-04-01 09:11 | CP.PCM.PN ---
Subjective - Date & Time of Evaluation Date of Evaluation: 04/01/18 Time of Evaluation: 07:11 - Subjective Subjective: Tao Esparza PGY2 Heme/Onc Progress Note for Dr. Lind Patient was seen and examined at bedside. The patient's breathing comfortably and denies any shortness of breath, cough, or chest pain. Her chest tube output is 1650 total output (200cc over last 24hrs). The patient is only complaining of some discomfort where the chest tube is. Otherwise, she has no complaints and is looking forward to going home. CXR will be done today to be reviewed by Dr. Yee. Objective - Vital Signs/Intake and Output Vital Signs (last 24 hours): Temp Pulse Resp BP Pulse Ox 98.1 F 83 20 115/79 94 L 04/01/18 08:09 04/01/18 08:09 04/01/18 08:09 04/01/18 08:09 04/01/18 08:09 Intake and Output: 04/01/18 04/01/18 06:59 18:59 Intake Total 60 Output Total 225 Balance -165 - Medications Medications: Current Medications Apixaban (Eliquis) 5 mg PO BID [facility]; Protocol Last Admin: 03/28/18 09:49 Dose: 5 mg Aspirin (Ecotrin) 81 mg PO DAILY [facility] Last Admin: 03/31/18 09:57 Dose: 81 mg Budesonide (Pulmicort Respules) 0.5 mg IH 0730,1530,2330 [facility] Last Admin: 04/01/18 07:56 Dose: 0.5 mg Enoxaparin Sodium (Lovenox) 60 mg SC Q12H [facility]; Protocol Stop: 04/05/18 06:01 Last Admin: 04/01/18 05:54 Dose: 60 mg Guaifenesin/Dextromethorphan (Robitussin Dm) 5 ml PO Q4H PRN PRN Reason: Cough Last Admin: 04/01/18 04:10 Dose: 5 ml Levalbuterol HCl (Xopenex) 0.63 mg IH BIDRESP [facility] Last Admin: 04/01/18 07:55 Dose: 0.63 mg Loratadine (Claritin) 10 mg PO DAILY [facility] Last Admin: 03/31/18 09:57 Dose: 10 mg Magnesium Oxide (Mag-Ox) 400 mg PO DAILY [facility] Last Admin: 03/31/18 09:57 Dose: 400 mg Metoprolol Succinate (Toprol Xl) 75 mg PO BRK [facility] Last Admin: 03/31/18 09:57 Dose: 75 mg Montelukast Sodium (Singulair) 10 mg PO DAILY [facility] Last Admin: 03/31/18 09:57 Dose: 10 mg Pyridoxine HCl (Vitamin B6 50 Mg Tab) 100 mg PO DAILY [facility] Tramadol HCl (Ultram) 50 mg PO TID PRN PRN Reason: Pain, moderate (4-7) Last Admin: 04/01/18 04:08 Dose: 50 mg Zolpidem Tartrate (Ambien) 5 mg PO HS PRN; Protocol PRN Reason: Insomnia Last Admin: 03/31/18 22:01 Dose: 5 mg - Labs Labs: 04/01/18 08:15 04/01/18 08:15 PT 14.6 SECONDS (9.4-12.5) H 03/29/18 06:00 INR 1.26 03/29/18 06:00 APTT 35.2 Seconds (25.1-36.5) 03/29/18 06:00 - Additional Findings Additional findings: - Constitutional Appears: Well, Non-toxic, No Acute Distress - Head Exam Head Exam: NORMAL INSPECTION - Eye Exam Eye Exam: EOMI, Normal appearance, PERRL - ENT Exam ENT Exam: Mucous Membranes Moist - Neck Exam Neck Exam: Normal Inspection - Respiratory Exam Respiratory Exam: NORMAL BREATHING PATTERN, Rhonchi (RLL). absent: Rales, Wheezes, Respiratory Distress Additional comments: right chest tube in place, 1650 cc serosanguinous output - Cardiovascular Exam Cardiovascular Exam: RRR, +S1, +S2 - GI/Abdominal Exam GI & Abdominal Exam: Soft, Normal Bowel Sounds. absent: Distended, Tenderness - Extremities Exam Extremities Exam: Full ROM. absent: Pedal Edema - Back Exam Back Exam: NORMAL INSPECTION - Neurological Exam Neurological Exam: Alert, Awake, Oriented x3 - Psychiatric Exam Psychiatric exam: Normal Mood - Skin Skin Exam: Normal Color, Warm Assessment and Plan - Assessment and Plan (Free Text) Assessment: 78-year-old female with a PMH of malarian duct malignancy, SCLC, RCC s/p nephrectomy, thoracic aorta aneurysm, CAD and DVT who presented for recurrent right-sided pleural effusion causing shortness of breath. The patient underwent thoracentesis with 2 L removed on 03/26/18, and had right chest tube placed for re-expansion by IR on 03/29. Upon re-expansion, the chest tube will be replaced with an Aspira catheter by Dr. Yee. Plan: - AM CXR reviewed, shows persistent apical pneumothorax - Dr. Yee will determine when to place catheter - holding Eliquis; started on Lovenox therapeutic dose - Further recs per cardio, pulm and nephro - cont ASA daily - given Solu-medrol 40mg IVP x1 - cont Pulmicort, Robittusin PRN, Xopenex, Claritin, and Singulair - cont Toprol - monitor anemia; labs reviewed - tramadol prn pain - maintain SaO2> 92% - further recs per Dr. Lind Case was reviewed and discussed with attending, Dr. Lelo Esparza PGY2
[2018-04-01] MEDS: Metoprolol Succinate 25 mg XL Tab PO SCH (09:19)
[2018-04-01] MEDS: Magnesium Oxide 400 mg Tab UD PO SCH (09:20)
--- NOTE | 2018-04-01 09:45 | RAD ---
Date of service: 04/01/2018 HISTORY: evaluate pneumothorax and chest tube placement COMPARISON: 03/31/2018 FINDINGS: LUNGS: There is a persistent small right apical pneumothorax. Chest tube remains in place. Right hilar mass. PLEURA: No significant pleural effusion identified, no pneumothorax apparent. CARDIOVASCULAR: There is aortic tortuosity and extensive aortic calcification Normal. OSSEOUS STRUCTURES: No significant abnormalities. VISUALIZED UPPER ABDOMEN: Normal. OTHER FINDINGS: None. IMPRESSION: There is a persistent small right apical pneumothorax. Chest tube remains in place. Right hilar mass.
[2018-04-01] MEDS ORDERED: Lidocaine 2% PF (10 ml) Amp ONE (12:28)
[2018-04-01] MEDS ORDERED: Midazolam 2 MG/2 ML VIAL ONE ×2 (13:33→14:00)
[2018-04-01] MEDS ORDERED: Oxycodone/Acetaminophen 5/325 mg Tab PO PRN (14:31)
[2018-04-01] MEDS ORDERED: Sodium Chloride 0.45% 1,000 ML IV SCH (14:45)
[2018-04-01 16:18] VITALS: RESP 18
--- NOTE | 2018-04-01 17:09 | PN ---
DATE: 04/01/2018 SUBJECTIVE: The patient is seen sitting in chair. She is awake. She is alert. She is comfortable. She is scheduled to have the chest tube removed today. PHYSICAL EXAMINATION: GENERAL: Elderly lady, sitting in chair. VITAL SIGNS: Blood pressure 100/63, heart rate 78, respiratory rate 18, temperature 97.8. HEENT: Normocephalic, atraumatic, positive pallor. NECK: Supple, no JVD. LUNGS: Bilateral equal air entry, decreased breath sounds on the right base. Positive chest tube. CARDIAC: S1 and S2, regular rate and rhythm, no murmur, no rub. ABDOMEN: Soft, nondistended, nontender, bowel sounds present. EXTREMITIES: No lower extremity edema. LABORATORY DATA: WBC 12, hemoglobin 9, hematocrit 27, platelets 509. Sodium 31, potassium 4.5, chloride 97, CO2 OF 29, BUN 31, creatinine 1.1, glucose 93. CURRENT MEDICATIONS: Ambien, Claritin, Ecotrin, Eliquis Lovenox, mag oxide, Singulair, Toprol-XL, Tylenol, Zofran. ASSESSMENT: 1. Resolved hyperkalemia. 2. Resolved hypomagnesemia. 3. Mild hyponatremia. 4. History of metastatic ovarian cancer. 5. History of metastatic renal cell CA with lung mass. 6. Pleural effusion/pneumothorax. PLAN: 1. Check urine sodium, Check serum uric acid. Check urine osmolality. 2. Continue magnesium supplementation. 3. Continue Lopressor. 4. Restrict p.o. fluids. Deanna Ivy MD
--- NOTE | 2018-04-01 17:29 | VASCULAR ---
Date of service: 04/01/2018 PROCEDURE: Fluoroscopically placed tunneled right pleural catheter HISTORY: INSERTION ASPIRA CATH. Recurrent right malignant effusion. Pelvic malignancy. COMPARISON: TECHNIQUE: The relative risks and indications of the procedure were explained the patient consent obtained. Patient was placed in a slight left decubitus position and the pigtail chest tube prepped and draped usual sterile fashion. Conscious sedation monitoring were provided throughout the procedure by a nurse. The skin soft tissues at the tube insertion site were anesthetized 1 percent xylocaine. A 0.035 glidewire was advanced into the right pleural space to the chest tube. The chest tube was removed. Using a angled catheter, the wire was directed posteriorly and superiorly. The peel-away sheath was placed. The 15.5 [place] Aspira catheter was advanced posteriorly and superiorly over the wire. The peel-away sheath was removed. The catheter was tunneled along the intercostal space. The tube was placed briefly to suction to evacuate the right hydropneumothorax. 300 cc of turbid yellow fluid were aspirated FINDINGS: IMPRESSION: Fluoroscopic placement tunneled right pleural catheter as described above
[2018-04-01 20:29] LABS: OSMOLALITY,URINE 480 mosm/kg (300-1000)
--- NOTE | 2018-04-01 23:31 | PN ---
DATE: 04/01/2018 PULMONARY PROGRESS NOTE REFERRING PHYSICIAN: Luis Zafar MD. SUBJECTIVE: She is out of bed to chair. Today's events noted. Chest tube had been removed and PleurX catheter is placed. No headache. No rhinitis. Breathing is better. No abdominal pain. No dysuria, leg pain or leg swelling. OBJECTIVE: GENERAL: In no acute distress. VITAL SIGNS: Temperature is 98, heart rate is 68, respiratory rate is 18, blood pressure 118/67, pulse ox 97% on 3 L nasal cannula. HEENT: Moist mucous membrane. No ulcer or thrush noted. NECK: Supple. No JVD. LUNGS: Have a few scattered rhonchi. Right-sided PleurX catheter. HEART: S1 and S2. ABDOMEN: Soft, nontender. No organomegaly. EXTREMITIES: No edema. NEUROLOGICAL: Awake and alert. Follows simple command. MEDICATIONS: She is on Ambien 5 mg at bedtime p.r.n., Claritin 10 mg daily, Ecotrin 81 mg daily, Eliquis 5 mg twice a day, Lovenox 60 mg every 12 hours, mag oxide 400 mg daily, Percocet 5/325 one tab every 4 hours p.r.n., Pulmicort inhaled twice a day, Robitussin 5 mL every 4 hours p.r.n., Singulair 10 mg daily, Toprol-XL 75 mg daily, Tylenol p.r.n., vitamin B6 at 100 mg daily, Xopenex inhaled twice a day, Zofran p.r.n. basis. LABORATORY DATA: Shows hemoglobin 9.2, hematocrit 27.1, WBC 12.3, platelet is 519. Sodium 131, potassium 4.5, chloride 97, bicarbonate 29, BUN 31, creatinine 1.1, glucose 93, uric acid is 8.1, calcium is 8.5, phosphorus is 4, magnesium 2.2, AST 29, ALT 32, alk phos is 103, total protein 5.8, albumin is 2.9. Chest x-ray: Right-sided PleurX catheter. 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 Pulmonary point of view, doing well. Continue bronchodilator. Keep head at 45 degrees. Gastric and deep venous thrombosis prophylaxes. Oncology followup for further chemotherapy. May benefit from [facility]-type services for rehab. Thank you and we will follow with you. Concepcion Love MD
[2018-04-02] MEDS: Budesonide 0.5 mg/2 ml Inhal Susp UD IH SCH ×2 (01:12→07:38)
[2018-04-02] MEDS: Enoxaparin 60 mg Syringe SC SCH (06:16)
[2018-04-02] MEDS: Levalbuterol 0.63 MG/3 ML Inhal Soln UD IH SCH (07:37)
[2018-04-02 08:33] VITALS: PULSE 73; TEMP 97.8; O2SAT 93
[2018-04-02] MEDS: Metoprolol Succinate 25 mg XL Tab PO SCH (08:51)
[2018-04-02 08:53] VITALS: BP 120/78
[2018-04-02] MEDS: Magnesium Oxide 400 mg Tab UD PO SCH (09:50)
--- NOTE | 2018-04-02 23:17 | PN ---
DATE: 04/02/2018 SUBJECTIVE: The patient is seen sitting in chair. She is awake. She is alert. She is comfortable. She denies any pain. She denies any shortness of breath. PHYSICAL EXAMINATION: GENERAL: Elderly lady sitting in bed. VITAL SIGNS: Blood pressure 120/78, heart rate 73, respiratory rate 18, temperature 97.8. HEENT: Normocephalic, atraumatic, positive pallor. NECK: Supple, no JVD. LUNGS: Bilateral equal air entry, decreased breath sounds at right base, positive catheter. CARDIAC: S1 and S2, regular rate and rhythm, no murmur, no rub. ABDOMEN: Soft, nondistended, nontender, bowel sounds present. EXTREMITIES: No lower extremity edema. LABORATORY DATA: No new labs today. Uric acid 8.1. Urine sodium 11, urine osmolality 480. Sodium 131, yesterday. MEDICATIONS: List reviewed. ASSESSMENT: 1. Hyponatremia, workup consistent with depletion of. 2. 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 3. History of renal cell carcinoma. 4. Resolved hyperkalemia. 5. Resolved hypomagnesemia. PLAN: 1. Continue oral magnesium supplementation. 2. Monitor electrolytes closely. 3. No objection to discharge. 4. Avoid dehydration. Deanna Ivy MD
== END 2018-04-02 14:28 | disposition home health service (06) | DRG 181 ==
LOC: ED 15:49 → ERH 20:59 → 2RSO 03-26 03:19 → 3RNO 03-26 21:14
PROVIDERS: ADMIT Family Medicine; ATTEND Family Medicine
PROC: 0W993ZZ Drainage of Right Pleural Cavity, Percutaneous Approach (ICD-10-PCS; principal; 2018-03-26 10:00)
PROC: 0W9930Z Drainage of Right Pleural Cavity with Drainage Device, Percutaneous Approach (ICD-10-PCS; 2018-03-29)
PROC: 0B9N30Z Drainage of Right Pleura with Drainage Device, Percutaneous Approach (ICD-10-PCS; 2018-04-01)
DX: C78.01 Secondary malignant neoplasm of right lung (principal); J91.0 Malignant pleural effusion; C56.9 Malignant neoplasm of unspecified ovary; J98.11 Atelectasis; J93.9 Pneumothorax, unspecified; J94.8 Other specified pleural conditions; E87.1 Hypo-osmolality and hyponatremia; C78.02 Secondary malignant neoplasm of left lung; M35.3 Polymyalgia rheumatica; I25.10 Atherosclerotic heart disease of native coronary artery without angina pectoris; I10 Essential (primary) hypertension; R09.02 Hypoxemia; E87.5 Hyperkalemia; I73.9 Peripheral vascular disease, unspecified; I71.2 Thoracic aortic aneurysm, without rupture; E83.42 Hypomagnesemia; I45.10 Unspecified right bundle-branch block; J44.9 Chronic obstructive pulmonary disease, unspecified; M06.9 Rheumatoid arthritis, unspecified; I67.9 Cerebrovascular disease, unspecified; Z85.528 Personal history of other malignant neoplasm of kidney; Z90.5 Acquired absence of kidney; Z95.5 Presence of coronary angioplasty implant and graft; Z86.718 Personal history of other venous thrombosis and embolism; Z87.891 Personal history of nicotine dependence

== ENCOUNTER 2018-05-20 11:49 | Inpatient (IN) | payer MEDICARE ==
[2018-05-20] MEDS ORDERED: Albuterol-Ipratrop 3 mg / 0.5 (3 ml) UD IH STA (12:08)
--- NOTE | 2018-05-20 12:12 | ED PDOC ---
Arrival/HPI - General Chief Complaint: Shortness Of Breath Time Seen by Provider: 05/20/18 11:52 - History of Present Illness Narrative History of Present Illness (Text): 78 y/o w/ h/o coronary artery disease, small cell lung cancer, ovarian cancer, renal cell carcinoma s/p R nephrectomy currently on chemotherapy & Elquis presenting to the Emergency Department with complaint of shortness of breath worsened today present over the last 4 days. Per the patient, the patient recently received a course of steroids and antibiotics last week without relief. She reports having a right sided pleurex catheter placed 2 months ago due to accumulation of pleural fluid worsening her respiratory status. PCP: Dr. Lind(oncology) Specialist: Dr. Turk(cardiology), Dr. Love(pullmonary) Time/Duration: Prior to Arrival Symptom Onset: Sudden Symptom Course: Worsening Quality: Tightness Severity Level: Moderate Activities at Onset: Rest Context: Home Past Medical History - Provider Review Nursing Documentation Reviewed: Yes - Travel History Have you recently traveled outside [place] w/in the past 3 mons?: No - Infectious Disease Hx of Infectious Diseases: None - Cardiac Hx Cardiac Disorders: Yes Hx Hypertension: Yes Hx Peripheral Vascular Disease: Yes - Pulmonary Hx Respiratory Disorders: No - Neurological Hx Neurological Disorder: No - HEENT Hx HEENT Disorder: Yes Hx Cataracts: Yes - Renal Hx Renal Disorder: No - Endocrine/Metabolic Hx Endocrine Disorders: No - Hematological/Oncological Hx Blood Disorders: Yes Hx Cancer: Yes (Ovarian, Right kidney, Right lung) Hx Chemotherapy: Yes - Integumentary Hx Dermatological Disorder: No - Musculoskeletal/Rheumatological Hx Musculoskeletal Disorders: Yes Hx Arthritis: Yes Hx Falls: No - Gastrointestinal Hx Gastrointestinal Disorders: No - Genitourinary/Gynecological Hx Genitourinary Disorders: No - Psychiatric Hx Psychophysiologic Disorder: No Hx Substance Use: No - Surgical History Hx Cardiac Catheterization: Yes Hx Cholecystectomy: Yes Hx Coronary Stent: Yes - Anesthesia Hx Anesthesia Reactions: No Hx Malignant Hyperthermia: No - Suicidal Assessment Feels Threatened In Home Enviroment: No Family/Social History - Physician Review Nursing Documentation Reviewed: Yes Family/Social History: Unknown Family HX Smoking Status: Former Smoker Hx Alcohol Use: Yes (Social/occasional) Hx Substance Use: No Allergies/Home Meds Allergies/Adverse Reactions: Allergies No Known Allergies Allergy (Verified 05/20/18 12:03) Home Medications: Home Meds Medication Instructions Recorded Confirmed Cholecalciferol [Vitamin D 1000 IU] 1,000 mg PO DAILY 03/25/18 03/25/18 Levocetirizine Dihydrochloride 1 tab PO DAILY 03/25/18 03/25/18 [Xyzal] Magnesium 1 tab PO DAILY 03/25/18 03/25/18 Montelukast [Singulair] 1 tab PO DAILY 03/25/18 03/25/18 Prednisone [Aretha] 1 tab PO DAILY 03/25/18 03/25/18 Pyridoxine [Vitamin B6 50 mg Tab] 100 mg PO DAILY 03/25/18 03/25/18 Review of Systems - Review of Systems Constitutional: Fatigue. absent: Fevers, Night Sweats Respiratory: SOB, Cough, Sputum, Wheezing Cardiovascular: Palpitations. absent: Chest Pain Physical Exam Vital Signs Reviewed: Yes Temperature: Afebrile Blood Pressure: Normal Pulse: Tachycardic Respiratory Rate: Normal Appearance: Positive for: Non-Toxic, Uncomfortable Mental Status: Positive for: Alert and Oriented X 3 - Systems Exam Head: Present: Atraumatic, Normocephalic Pupils: Present: PERRL Extroacular Muscles: Present: EOMI Conjunctiva: Present: Normal Mouth: Present: Moist Mucous Membranes Neck: Present: Normal Range of Motion Respiratory/Chest: Present: Respiratory Distress, Wheezes, Rhonchi, Tachypneic. No: Decreased Breath Sounds, Rales, Retracting Cardiovascular: Present: Irregular Rhythm, Tachycardic Abdomen: Present: Normal Bowel Sounds. No: Tenderness, Distention Upper Extremity: Present: Normal Inspection, NORMAL PULSES, Neurovascularly Intact, Capillary Refill < 2s Lower Extremity: Present: Normal Inspection, NORMAL PULSES. No: Edema Neurological: Present: GCS=15, CN II-XII Intact, Speech Normal Skin: Present: Warm, Rashes, Other (ecchymoses noted on upper extremities b/l) Psychiatric: Present: Alert, Oriented x 3, Normal Insight, Normal Concentration, Anxious Medical Decision Making ED Course and Treatment: 05/20/18 14:03 Impression 78 F w/ h/o multiple cancers presenting with dyspnea Differential Diagnoses Includes But Is Not Limited To: --CHF exacerbation --COPD exacerbation --Pericardial effusion --Cardiac tamponade Plan --Labs --IVF --Solumedrol --Duonebs --ABG --Reasess & disposition Progress Notes 05/20/18 14:[address] Lind(heme-onc)who accepts patient onto his service and requests for consult to Dr. Love(pulmonology) and Dr. Turk(cardiology) for consult. - RAD Interpretation Narrative RAD Interpretations (Text): 05/20/18 13:30 Chest X-ray reviewed by radiologist, shows: FINDINGS: LUNGS: No significant change in right upper lobe infiltrate. Increasing right lower lobe infiltrate PLEURA: No significant pleural effusion identified, no pneumothorax apparent. CARDIOVASCULAR: Aortic calcification and tortuosity Moderate cardiomegaly no pulmonary vascular congestion. OSSEOUS STRUCTURES: No significant abnormalities. VISUALIZED UPPER ABDOMEN: Normal. OTHER FINDINGS: None. IMPRESSION: Increasing right lower lobe infiltrate Radiology Orders: 05/20/18 12:07 CHEST PORTABLE [RAD] Stat Board Certified Music Therapist: Radiologist - EKG Interpretation EKG Interpretation (Text): 05/20/18 15:13 EKG: Ordered, reviewed, and independently interpreted the EKG. Rate : 117 BPM Rhythm : Irregularly irregular rhythm Interpretation : Prolonged QT intervals. Interpreted by ED Physician: Yes Type: 12 lead EKG Disposition/Present on Arrival - Present on Arrival Any Indicators Present on Arrival: No History of DVT/PE: No History of Uncontrolled Diabetes: No Urinary Catheter: No History Surgical Site Infection Following: None - Disposition Have Diagnosis and Disposition been Completed?: Yes Diagnosis: CHF (congestive heart failure), Atrial fibrillation Disposition: HOSPITALIZED Disposition Time: 13:29 Patient Plan: Admission Patient Problems: Current Active Problems Problem Status Onset CHF (congestive heart failure) Acute Atrial fibrillation Acute Condition: GUARDED Discharge Instructions (ExitCare): Heart Failure (ED) Referrals: Cal Pandey MD [Primary Care Provider] - Follow up with primary Forms: [employer]paper (Setswana)
[2018-05-20 12:45] LABS: BASO # 0.01 K/mm3 (0.0-2.0); BASO % 0.1 % (0.0-3.0); EOS % 0.3 % (1.5-5.0); GRAN # 9.79 (1.4-6.5); GRAN % 83.3 % (50.0-68.0); HEMOGLOBIN 10.4 g/dL (12.0-16.0); LYMPH # 0.5 (1.2-3.4); LYMPH % 4.3 % (22.0-35.0); MEAN CELL VOLUME 106.7 fl (80.0-105.0); MEAN CORPUSCULAR HEMOGLOBIN 33.3 pg (25.0-35.0); MEAN CORPUSCULAR HGB CONC 31.2 g/dl (31.0-37.0); MEAN PLATELET VOLUME 10.2 fl (7.0-11.0); MONO # 1.4 (0.1-0.6); PLATELET COUNT 228 10^3/uL (120.0-450.0); RBC 3.12 10^6/uL (3.5-6.1); RED CELL DISTRIBUTION WIDTH 18.6 % (11.5-14.5); WHITE BLOOD COUNT 11.8 10^3/uL (4.5-11.0)
[2018-05-20 12:46] LABS: VENOUS BLOOD GAS PO2 41 mm/Hg (30-55); VENOUS BLOOD PH 7.34 (7.32-7.43)
[2018-05-20 13:03] LABS: LYMPHOCYTE 4 % (22.0-35.0); MONOCYTE 4 % (1.0-6.0); NEUTROPHIL 92 % (50.0-70.0); PLATELET ESTIMATE NORMAL (NORMAL)
[2018-05-20] MEDS ORDERED: Albuterol 0.083% Inhal Sol (2.5 mg/3 mL) UD INH STA (13:04)
--- NOTE | 2018-05-20 13:12 | CP.PCM.HP ---
History of Present Illness - History of Present Illness History of Present Illness: Faby Barnes DO, PGY-2: Hematology and Oncology HPI for Dr. 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 She was recently seen in the outpatient oncology clinic and prescribed steroids and an antibiotic without relief. She denies having any fevers chills nausea vomiting diarrhea or a significant cough. Important to note that the patient has a pleurex catheter that was draining 800 mL a week, but as of as of a week or so ago has stopped draining, completely. This was placed for recurrent right sided pleural effusion. The patient is accompanied by a close friend. She is on a Venti mask with oxygen saturation of 100% when on 15 L per minute (as per chart review). EKG shows atrial fibrillation with RVR. She denies chest pain and denies feeling a ripping sensation through her chest. She reports coming to the ED because of her inability to breath and palpitations. PMH: As above PSH: cholecystectomy Allergies: none known Social: Former smoker, denies alcohol and illicit drug use Family History: Unknown Present on Admission - Present on Admission Any Indicators Present on Admission: No Review of Systems - Cardiovascular Cardiovascular: Dyspnea, Dyspnea on Exertion, Paroxysmal Nocturnal Dyspnea. absent: Chest Pain, Lightheadedness, Radiating Pain - Respiratory Respiratory: Dyspnea on Exertion. absent: Cough, Hemoptysis - Gastrointestinal Gastrointestinal: absent: Diarrhea, Nausea, Vomiting - Genitourinary Genitourinary: absent: Change in Urinary Stream, Difficulty Urinating, Dysuria - Musculoskeletal Musculoskeletal: absent: Arthralgias, Back Pain, Neck Pain - Integumentary Integumentary: Unusual Bruising - Neurological Neurological: absent: Dizziness, Headaches, Weakness Past Patient History - Infectious Disease Hx of Infectious Diseases: None - Past Social History Smoking Status: Former Smoker - CARDIAC Hx Cardiac Disorders: Yes Hx Hypertension: Yes Hx Peripheral Vascular Disease: Yes - PULMONARY Hx Respiratory Disorders: No - NEUROLOGICAL Hx Neurological Disorder: No - HEENT Hx HEENT Problems: Yes Hx Cataracts: Yes - RENAL Hx Chronic Kidney Disease: No - ENDOCRINE/METABOLIC Hx Endocrine Disorders: No - HEMATOLOGICAL/ONCOLOGICAL Hx Blood Disorders: Yes Hx Cancer: Yes (Ovarian, Right kidney, Right lung) Hx Chemotherapy: Yes - INTEGUMENTARY Hx Dermatological Problems: No - MUSCULOSKELETAL/RHEUMATOLOGICAL Hx Musculoskeletal Disorders: Yes Hx Arthritis: Yes Hx Falls: No - GASTROINTESTINAL Hx Gastrointestinal Disorders: No - GENITOURINARY/GYNECOLOGICAL Hx Genitourinary Disorders: No - PSYCHIATRIC Hx Psychophysiologic Disorder: No Hx Substance Use: No - SURGICAL HISTORY Hx Cardiac Catheterization: Yes Hx Cholecystectomy: Yes Hx Coronary Stent: Yes - ANESTHESIA Hx Anesthesia Reactions: No Hx Malignant Hyperthermia: No Meds Allergies/Adverse Reactions: Allergies Allergy/AdvReac Type Severity Reaction Status Date / Time No Known Allergies Allergy Verified 05/20/18 12:03 Physical Exam - Constitutional Appears: In Acute Distress - Head Exam Head Exam: ATRAUMATIC, NORMOCEPHALIC - Eye Exam Eye Exam: EOMI, Normal appearance - ENT Exam ENT Exam: Mucous Membranes Moist - Neck Exam Neck exam: Positive for: Normal Inspection - Respiratory Exam Respiratory Exam: Decreased Breath Sounds (right lung field) - Cardiovascular Exam Cardiovascular Exam: Tachycardia, +S1, +S2 - GI/Abdominal Exam GI & Abdominal Exam: absent: Guarding, Rebound - Extremities Exam Extremities exam: Positive for: calf tenderness (right leg) - Neurological Exam Neurological exam: Alert, CN II-XII Intact, Oriented x3 - Psychiatric Exam Psychiatric exam: Anxious - Skin Skin Exam: Dry, Intact, Normal Color, Warm Results - Vital Signs Recent Vital Signs: Last Vital Signs Temp 97.6 F 05/20/18 12:16 Pulse 128 H 05/20/18 12:16 Resp 20 05/20/18 12:37 BP 119/66 05/20/18 12:16 Pulse Ox 100 05/20/18 12:37 - Labs Result Diagrams: 05/20/18 12:32 05/20/18 12:00 Labs: Laboratory Results - last 24 hr 05/20/18 05/20/18 05/20/18 12:31 12:32 12:32 WBC 11.8 H RBC 3.12 L Hgb 10.4 L Hct 33.3 L MCV 106.7 H D MCH 33.3 MCHC 31.2 RDW 18.6 H Plt Count 228 MPV 10.2 Gran % 83.3 H Lymph % (Auto) 4.3 L [place] % (Auto) 12.0 H Eos % (Auto) 0.3 L Baso % (Auto) 0.1 Gran # 9.79 H Lymph # (Auto) 0.5 L [place] # (Auto) 1.4 H Eos # (Auto) 0.0 Baso # (Auto) 0.01 Neutrophils % (Manual) 92 H Lymphocytes % (Manual) 4 L Monocytes % (Manual) 4 Platelet Evaluation Normal APTT 33.8 pO2 41 VBG pH 7.34 VBG pCO2 49.0 VBG HCO3 26.4 VBG Total CO2 27.9 VBG O2 Sat (Calc) 74.6 H VBG Base Excess 0.0 VBG Potassium 3.5 L Sodium 136.0 Chloride 101.0 Glucose 162 H Lactate 2.6 H FiO2 21.0 Magnesium NT-Pro-B Natriuret Pep Venous Blood Potassium 3.5 L 05/20/18 12:32 WBC RBC Hgb Hct MCV MCH MCHC RDW Plt Count MPV Gran % Lymph % (Auto) [place] % (Auto) Eos % (Auto) Baso % (Auto) Gran # Lymph # (Auto) [place] # (Auto) Eos # (Auto) Baso # (Auto) Neutrophils % (Manual) Lymphocytes % (Manual) Monocytes % (Manual) Platelet Evaluation APTT pO2 VBG pH VBG pCO2 VBG HCO3 VBG Total CO2 VBG O2 Sat (Calc) VBG Base Excess VBG Potassium Sodium Chloride Glucose Lactate FiO2 Magnesium 1.3 L NT-Pro-B Natriuret Pep 15438 H Venous Blood Potassium - EKG Data Rate: Tachycardia - EKG Data EKG comments: atrial fibrillation Assessment & Plan - Assessment and Plan (Free Text) Assessment: 78-year-old female with a past medical history significant for coronary artery disease, small cell lung cancer treated with carboplatinum and etoposide- currently not clincially active, 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 Plan: 1)Severe Dyspnea in the setting of new-onset atrial fibrillation and heart failure - Continue with Supplemental oxygen for target O2 saturation above 96% - Rule of ACS, troponins x 1 negative - BNP elevated to 13,000 - Chest X-ray reports increasing right lower lobe infiltrate; will perform non- contrast CT to better lungs and pleural space - Diltiazem 10 mg q4h PRN for ventricular rate greater than 110 or will consider diltiazem drip at 5 mg/hr - Continue Metoprolol 75 mg Succinate - Continue Eliquis 5 mg BID - Cardiology consulted, Dr. Turk - Pulmonology consulted, Dr. Love - Echocardiogram ordered - Considering CTA of chest to better visual lung and surrounding tissue; will consult nephrology in regards to performing this test 2) Osteoarthritis - Percocet 5/325 q4h PRN 3) COPD - Budesonide 180 mcg I[facility] morgan - Singulair 10 mg HS 4) CAD - Aspirin 81 mg daily - Lipid panel - Atorvastatin 40 mg PO HS 5) Elevated D-dimer in a patient with active cancer - Will not pursue further work-up given the clinically suspicion of DVT and PE is not high given the patient is already on Eliquis, 5 mg BID 6) DVT/GI prophylaxis - SCD/Protonix 40 mg PO daily - Date & Time Date: 05/20/18 Time: 14:39 Decision To Admit - Pt Status Changed To: Hospital Disposition Of: Inpatient Admission - Admit Certification Admit to Inpatient:: After my assessment, the patient will require hospitalization for at least two midnights. This is because of the severity of symptoms shown, intensity of services needed, and/or the medical risk in this patient being treated as an outpatient. - . Bed Request Type: Telemetry
--- NOTE | 2018-05-20 13:17 | RAD ---
Date of service: 05/20/2018 HISTORY: sob COMPARISON: 05/13/2018 FINDINGS: LUNGS: No significant change in right upper lobe infiltrate. Increasing right lower lobe infiltrate PLEURA: No significant pleural effusion identified, no pneumothorax apparent. CARDIOVASCULAR: Aortic calcification and tortuosity Moderate cardiomegaly no pulmonary vascular congestion. OSSEOUS STRUCTURES: No significant abnormalities. VISUALIZED UPPER ABDOMEN: Normal. OTHER FINDINGS: None. IMPRESSION: Increasing right lower lobe infiltrate
[2018-05-20 13:26] LABS: ARTERIAL BLOOD GAS HCO3 21.4 mmol/L (21-28); ARTERIAL BLOOD GAS O2 CAPACITY 15.1 mL/dl (16-24); ARTERIAL BLOOD GAS O2 CONTENT 14.8 ML/dl (15-23); ARTERIAL BLOOD GAS PCO2 33 mm/Hg (35-45); ARTERIAL BLOOD GAS PH 7.42 (7.35-7.45); ARTERIAL BLOOD GAS TCO2 22.4 mmol.L (22-28)
[2018-05-20] MEDS ORDERED: Magnesium Sulfate 2 gm/50 ml 2 GM/50 ML BAG IVPB ONE (13:27)
[2018-05-20] MEDS ORDERED: Metoprolol 1 mg/ml Inj IVP STA ×2 (13:41→23:20)
[2018-05-20] MEDS ORDERED: guaiFENesin DM 100 mg-10 mg/5 ml UD PO PRN (13:43)
[2018-05-20] MEDS ORDERED: Oxycodone/Acetaminophen 5/325 mg Tab PO PRN (13:51)
[2018-05-20 14:04] LABS: TROPONIN I 0.04 ng/mL
[2018-05-20 14:11] LABS: ALB/GLOB RATIO 1.1 (1.1-1.8); ALBUMIN 3.3 g/dL (3.0-4.8); ALT/SGPT 37 U/L (7-56); AST/SGOT 44 U/L (14-36); BLOOD UREA NITROGEN 39 mg/dL (7-21); CALCIUM 9.2 mg/dL (8.4-10.5); GFR NON-AFRICAN AMERICAN > 60
[2018-05-20] MEDS: Albuterol-Ipratrop 3 mg / 0.5 (3 ml) UD IH SCH (14:29)
--- NOTE | 2018-05-20 16:29 | CT ---
Date of service: 05/20/2018 PROCEDURE: CT Chest without contrast HISTORY: evaluate lungs COMPARISON: 05/13/2018 TECHNIQUE: Contiguous axial images were obtained through the chest without intravenous contrast enhancement. Sagittal and coronal reconstructions were performed. Radiation dose: Total exam DLP = 185.21 mGy-cm. This CT exam was performed using one or more of the following dose reduction techniques: Automated exposure control, adjustment of the mA and/or kV according to patient size, and/or use of iterative reconstruction technique. FINDINGS: LUNGS: As seen previously there is dense consolidation in the medial aspect and posterior aspect of the right upper lobe with air bronchograms. There is a large pleural effusion. A right-sided chest tube remains in place. There is no change. MEDIASTINUM: There is aneurysmal dilatation of the aorta. The ascending aorta measures 5.2 cm and the descending 3.9 cm. Moderate cardiomegaly main pulmonary artery unremarkable. No vascular congestion. No lymphadenopathy. No aortic atherosclerotic calcification. PLEURA: No pleural fluid. No pneumothorax. BONES: No fracture. No destructive lesion. UPPER ABDOMEN: Grossly unremarkable. OTHER FINDINGS: None. IMPRESSION: No change in right-sided consolidation and pleural effusion.
[2018-05-20 18:06] LABS: VENOUS BLOOD GAS BASE EXCESS 1.3 mmol/L (0.0-2.0); VENOUS BLOOD GAS PO2 49 mm/Hg (30-55); VENOUS BLOOD PH 7.37 (7.32-7.43)
[2018-05-20 18:11] LABS: ALB/GLOB RATIO 1.2 (1.1-1.8); ALBUMIN 3.3 g/dL (3.0-4.8); ALT/SGPT 38 U/L (7-56); AST/SGOT 39 U/L (14-36); BLOOD UREA NITROGEN 38 mg/dL (7-21); CALCIUM 9.2 mg/dL (8.4-10.5); GFR NON-AFRICAN AMERICAN > 60
[2018-05-20] MEDS ORDERED: Metoprolol 1 mg/ml Inj ONE (23:25)
[2018-05-21 00:44] LABS: URINE BILIRUBIN NEGATIVE (NEGATIVE); URINE BLOOD NEGATIVE (NEGATIVE); URINE GLUCOSE (UA) NEGATIVE (NEGATIVE); URINE LEUKOCYTE ESTERASE TRACE Leu/uL (NEGATIVE); URINE PROTEIN NEGATIVE mg/dL (<30 mg/dL); URINE UROBILINOGEN 0.2 E.U./dL (<1 E.U./dL)
[2018-05-21 00:59] LABS: URINE APPEARANCE CLEAR (CLEAR); URINE COLOR YELLOW (YELLOW)
[2018-05-21 01:06] LABS: URINE BACTERIA SMALL (NEG); URINE RBC 0 - 2 /hpf (0-2)
[2018-05-21 03:08] VITALS: BMI 10.0
[2018-05-21] MEDS: Pantoprazole 20 mg EC Tab PO SCH (05:23)
[2018-05-21] MEDS ORDERED: Potassium Chloride 20 mEq ER Tab PO ONE (06:38)
[2018-05-21] MEDS ORDERED: Metoprolol Succinate 25 mg XL Tab PO SCH ×2 (06:41→08:00)
[2018-05-21 06:56] LABS: GRAN # 5.05 (1.4-6.5); GRAN % 91.7 % (50.0-68.0); HEMOGLOBIN 8.6 g/dL (12.0-16.0); LYMPH # 0.4 (1.2-3.4); LYMPH % 6.5 % (22.0-35.0); MEAN CELL VOLUME 105.9 fl (80.0-105.0); MEAN CORPUSCULAR HGB CONC 32.1 g/dl (31.0-37.0); MEAN PLATELET VOLUME 10.2 fl (7.0-11.0); MONO # 0.1 (0.1-0.6); MONO % 1.8 % (1.0-6.0); RBC 2.53 10^6/uL (3.5-6.1); RED CELL DISTRIBUTION WIDTH 18.4 % (11.5-14.5); WHITE BLOOD COUNT 5.5 10^3/uL (4.5-11.0)
[2018-05-21] MEDS ORDERED: diltiaZEM IVPB 100mg in NS 100 ML IV PRN (08:00)
[2018-05-21] MEDS: Albuterol-Ipratrop 3 mg / 0.5 (3 ml) UD IH SCH (08:01)
[2018-05-21 08:29] LABS: ALB/GLOB RATIO 1.2 (1.1-1.8); ALBUMIN 3.3 g/dL (3.0-4.8); ALT/SGPT 34 U/L (7-56); AST/SGOT 30 U/L (14-36); BLOOD UREA NITROGEN 42 mg/dL (7-21); CALCIUM 8.8 mg/dL (8.4-10.5); GFR NON-AFRICAN AMERICAN 53; HDL CHOLESTEROL 48 mg/dL (29-60)
[2018-05-21 08:31] LABS: LDL CHOLESTEROL 116 mg/dL (0-129)
[2018-05-21] MEDS ORDERED: MAGNESIUM PO SCH (10:00)
--- NOTE | 2018-05-21 10:43 | CON ---
DATE: 05/21/2018 INDICATIONS: Paroxysmal atrial fibrillation. HISTORY OF PRESENT ILLNESS: This is a 78-year-old woman well-known to me, admitted with increasing shortness of breath for several days to a week or more, treated on an outpatient basis for respiratory problems with antibiotics. Her symptoms got worse, she came to the emergency room, found to be in atrial fibrillation with rapid ventricular response. She was treated with multiple doses of diltiazem and metoprolol. This morning she is resting in bed on telemetry with atrial fibrillation in the 130s to 150. There is no chest pain. She does have dyspnea on minimal exertion and mild orthopnea. No syncope, presyncope, lightheadedness, dizziness or vertigo. No fever, chills, cough, sputum production, hemoptysis. No abdominal pain, nausea, vomiting, diarrhea, constipation, melena. PAST MEDICAL HISTORY: Very complex. She has multiple cancers. She has ovarian cancer with chronic right pleural effusion, treated with a PleurX catheter which recently stopped draining. She has remote renal cell carcinoma with right nephrectomy and treatment with interferon. She has small-cell lung cancer, being treated with chemotherapy, the details of her chemotherapy are included in the hospital record. She has a history of coronary artery disease, remote coronary intervention, peripheral vascular disease with claudication, hypertension, rheumatoid arthritis, polymyalgia rheumatica, cerebrovascular disease, abdominal aortic aneurysm, gallbladder surgery, osteoarthritis. She is a former smoker. There is no history of rheumatic fever, myocardial infarction, recent angina, stroke, TIA, diabetes or gout. MEDICATIONS AT THE TIME OF ADMISSION: Include Ambien, Claritin, aspirin, Eliquis, Percocet, Pulmicort, prednisone, Singulair, vitamin D, Xyzal, magnesium, vitamin B6 as well as chemotherapy. ALLERGIES: THERE ARE NO KNOWN MEDICATION ALLERGIES. SOCIAL HISTORY: She lives at home. She is ambulatory but limited. She is a former smoker. She denies any alcohol intake. FAMILY HISTORY: Noncontributory. REVIEW OF SYSTEMS: Ten-point review of systems is otherwise unremarkable except as noted above. PHYSICAL EXAMINATION: GENERAL: She is a well-developed elderly woman lying in bed on telemetry, in no acute distress. VITAL SIGNS: She is in AFib with a heart rate ranging from 99-150. She is afebrile. Blood pressure 100/60, respirations 18, O2 sat 95-100% on nasal cannula and room air. HEENT: Exam reveals no neck vein distention, thyromegaly, carotid bruits. Mucous membranes moist. Conjunctivae pink. NECK: Supple. LUNGS: Lung [place], diminished breath sounds on the right, scattered rhonchi, more on the left. HEART: Revealed an irregular rapid rhythm. Soft systolic murmur along the left sternal border. PMI not palpable. ABDOMEN: Soft. Bowel sounds present. No mass, organomegaly, tenderness, rebound, guarding, CVA tenderness or palpable abdominal aortic aneurysm. EXTREMITIES: Exam revealed no cyanosis, clubbing, edema. NEUROLOGICAL: Awake, alert, oriented. PSYCHIATRIC: Normal as to mood and affect. SKIN: Warm and dry. No rash or cellulitis. LABORATORY AND IMAGING: Chest x-ray, a portable study, revealed increasing right lower lobe infiltrate. A CT scan of the chest revealed no change in right-sided consolidation and pleural effusion. EKG revealed atrial fibrillation, rapid ventricular response, right bundle-branch block, ST-T wave changes. AFib is new compared to the prior EKG. White count 11,800, repeat 5500; hemoglobin 8.6; hematocrit 26.8; platelet count normal. PTT was 33.8. D-dimer was 2894. Blood gases are noted. Initial electrolytes unremarkable. BUN 39, creatinine 0.8, blood sugar 155, calcium 9.2, magnesium 1.3. LFTs are noted, mildly elevated. Troponin 0.04. TSH is normal. Urinalysis is noted. IMPRESSION: Silvino Jason is a 78-year-old woman, being actively treated for ovarian cancer with chronic pleural effusion and small cell cancer, getting chemotherapy, status post right nephrectomy for remote renal cell carcinoma, who presents with increasing shortness of breath, increasing pleural effusion with nonfunctioning PleurX valve and atrial fibrillation with rapid ventricular response. She is on telemetry. Since her rate is not well-controlled, I would add IV diltiazem drip. We can titrate her metoprolol. I will review her old records. An echocardiogram in March revealed mildly decreased LV function, mild MR, moderate TR and mild PH. We will monitor I's and O's. Check stool for occult blood. She can be at bedrest today. She is getting respiratory treatments; aspirin; Eliquis; potassium replacement; metoprolol p.o.; magnesium replacement; metolazone Thursday, Thursday, Thursday; vitamin B6; Singulair; Protonix. She will have Renal, Pulmonary and Interventional Radiology evaluations. She is being followed by Dr. Lind for Oncology. I will review her old records. I will follow along with you. I will make additional recommendations based on her clinical course. Pro Turk MD MTDD
[2018-05-21] MEDS: Cholecalciferol 1,000 INTLU TAB PO SCH (11:09)
[2018-05-21] MEDS: Magnesium Oxide 400 mg Tab UD PO SCH (11:09)
[2018-05-21] MEDS: metOLazone 2.5 MG TAB PO SCH (11:20)
[2018-05-21] MEDS: diltiaZEM IVPB 100mg in NS 100 ML IV PRN ×2 (12:48→23:33)
[2018-05-21] MEDS: Ipratropium 0.02% Inhal Soln (0.5 mg/2.5 ml) UD IH SCH ×2 (13:42→20:37)
--- NOTE | 2018-05-21 13:43 | CP.PCM.PN ---
Subjective - Date & Time of Evaluation Date of Evaluation: 05/21/18 Time of Evaluation: 08:00 - Subjective Subjective: Faby Barnes DO, PGY-2: Hematology and Oncology Progress Note Patient was seen and examined at bedside. Patient reports experiencing less dyspnea since being admitted to the hospital. She has not tried to walk much on her own. We informed her that she was in atrial fibrillation. She denies having any chest pain, nausea, vomiting, diarrhea, or worsening of her dyspnea. Objective - Vital Signs/Intake and Output Vital Signs (last 24 hours): Temp Pulse Resp BP Pulse Ox 97.1 F L 81 19 113/72 95 05/21/18 12:00 05/21/18 12:00 05/21/18 12:00 05/21/18 12:00 05/21/18 05:59 Intake and Output: 05/21/18 05/21/18 06:59 18:59 Intake Total 0 Balance 0 - Medications Medications: Current Medications Apixaban (Eliquis) 5 mg PO BID [facility]; Protocol Last Admin: 05/21/18 11:19 Dose: 5 mg Aspirin (Ecotrin) 81 mg PO DAILY [facility] Last Admin: 05/21/18 11:08 Dose: 81 mg Cholecalciferol (Vitamin D) 1,000 intlu PO DAILY [facility] Last Admin: 05/21/18 11:09 Dose: 1,000 intlu Guaifenesin/Dextromethorphan (Robitussin Dm) 5 ml PO Q4H PRN PRN Reason: Cough Hydrocortisone Sodium Succinate (Solu-Cortef) 100 mg IVP Q8 [facility] Last Admin: 05/21/18 13:03 Dose: 100 mg diltiaZEM IVPB 100mg in NS (Cardizem 100mg In Ns) 100 mls @ 10 mls/hr IV .Q10H PRN; Protocol PRN Reason: TITRATE PER MD ORDER Last Admin: 05/21/18 12:48 Dose: 10 mg/hr, 10 mls/hr Ipratropium [place] (Atrovent) 0.5 mg IH [id number] [facility] Loratadine (Claritin) 10 mg PO DAILY [facility] Last Admin: 05/21/18 11:20 Dose: 10 mg Magnesium Oxide (Mag-Ox) 400 mg PO DAILY [facility] Last Admin: 05/21/18 11:09 Dose: 400 mg Metolazone (Zaroxolyn) 2.5 mg PO MWF [facility] Last Admin: 05/21/18 11:20 Dose: 2.5 mg Metoprolol Succinate (Toprol Xl) 75 mg PO BRK [facility] Last Admin: 05/21/18 11:09 Dose: 75 mg Montelukast Sodium (Singulair) 10 mg PO HS [facility] Last Admin: 05/20/18 23:24 Dose: 10 mg Budesonide [ Pulmicort Flexhaler] 180 Mcg (Home) 180 mcg IH DAILY [facility] Oxycodone/Acetaminophen (Percocet 5/325 Mg Tab) 1 tab PO Q4H PRN PRN Reason: Pain, moderate (4-7) Stop: 05/23/18 13:52 Pantoprazole Sodium (Protonix Ec Tab) 20 mg PO 0600 [facility] Last Admin: 05/21/18 05:23 Dose: 20 mg Pyridoxine HCl (Vitamin B6 50 Mg Tab) 100 mg PO DAILY [facility] Last Admin: 05/21/18 11:09 Dose: 100 mg Zolpidem Tartrate (Ambien) 5 mg PO HS PRN; Protocol PRN Reason: Insomnia Last Admin: 05/21/18 02:05 Dose: 5 mg - Labs Labs: 05/21/18 06:15 05/21/18 07:45 APTT 33.8 Seconds (25.1-36.5) 05/20/18 12:32 - Constitutional Appears: Non-toxic, No Acute Distress - Head Exam Head Exam: ATRAUMATIC, NORMOCEPHALIC - Eye Exam Eye Exam: EOMI, Normal appearance - ENT Exam ENT Exam: Mucous Membranes Moist - Neck Exam Neck Exam: Normal Inspection - Respiratory Exam Respiratory Exam: Rales (scattered), Wheezes, NORMAL BREATHING PATTERN. absent: Accessory Muscle Use - Cardiovascular Exam Cardiovascular Exam: Tachycardia, Irregular Rhythm - GI/Abdominal Exam GI & Abdominal Exam: Soft, Normal Bowel Sounds - Extremities Exam Extremities Exam: Normal Inspection. 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 She was found to be in atrial fibrillation with RVR. CT scan of the chest demonstrated no change in right-sided consolidation and pleural effusion. Interventional radiology consulted given the absence of drainage from the right pleurex catheter. Plan: 1)Severe Dyspnea in the setting of new-onset atrial fibrillation - Continue with Supplemental oxygen for target O2 saturation above 96% - Rule of ACS, troponins x 1 negative - BNP elevated to 13,000 - Chest X-ray reports increasing right lower lobe infiltrate; CT scan of the chest demonstrated no change in right-sided consolidation and pleural effusion. - Diltiazem 10 mg/hr drip; defer conversion to PO diltiazem to cardiology - Increase Metoprolol Succinate 100 mg - Continue Eliquis 5 mg BID - Cardiology consulted, Dr. Turk - Echocardiogram ordered 2) Osteoarthritis - Percocet 5/325 q4h PRN 3) COPD - Singulair 10 mg HS - Atrovent q12h [place] - Solucortef 50 mg q8h 4) CAD - Aspirin 81 mg daily - Lipid panel shows elevated LDL of 117 - Consider Atorvastatin 40 mg PO HS 5) Elevated D-dimer in a patient with active cancer - Will not pursue further work-up given the clinically suspicion of DVT and PE is not high given the patient is already on Eliquis, 5 mg BID 6) DVT/GI prophylaxis - SCD/Protonix 40 mg PO daily Case reviewed and discussed with attending physician, Dr. Lind
--- NOTE | 2018-05-21 14:22 | CON ---
PULMONARY CONSULT NOTE DATE: 05/21/2018 REFERRING PHYSICIAN: Luis Zafar MD REASON FOR CONSULT: Worsening shortness of breath and pleural effusion. HISTORY OF PRESENT ILLNESS: This is a 78-year-old female with past medical history of coronary artery disease; small-cell lung cancer which was treated and currently is not clinically active; stage IIIB ovarian cancer, currently receiving chemotherapy; history of nephrectomy. The patient has right pleural catheter which was draining about 800 mL a week, but has stopped draining completely. The patient reports coming to hospital due to worsening dyspnea. PAST MEDICAL HISTORY: As described in HPI. ALLERGIES: NO KNOWN DRUG ALLERGIES. FAMILY HISTORY: No cardiopulmonary disease reported. MEDICATIONS: DuoNeb 3 mL inhalation every 6 hours, Eliquis 5 mg p.o. twice a day, aspirin 81 mg p.o. daily, vitamin D 1000 units daily, Cardizem mg p.r.n., Robitussin DM 5 mg every 4 hours p.r.n., Solu-Cortef 100 mg IV push every 8 hours, Claritin 10 mg p.o. daily, magnesium oxide 400 mg p.o. daily, metolazone 2.5 mg every Thursday, Thursday, Thursday, metoprolol succinate 25 mg p.o. daily, Singulair 10 mg p.o. at bedtime, Pulmicort 180 mcg inhalation daily, Percocet 5/325 mg one tab every 4 hours p.r.n. for moderate pain, Protonix 20 mg daily, vitamin B6 100 mg daily, Ambien 5 mg p.o. at bedtime p.r.n. REVIEW OF SYSTEMS: No headache, rhinitis, cough, chest pain, abdominal pain, nausea, vomiting, diarrhea, constipation, leg pain, leg swelling reported. The patient does report shortness of breath with exertion. PHYSICAL EXAMINATION: GENERAL: No acute distress. VITAL SIGNS: Blood pressure 104/70, pulse 133, temperature 97.8, oxygen saturation 95% on nasal cannula. HEENT: Moist mucous membranes. NECK: Supple. No JVD. No thyromegaly. LUNGS: Scattered rhonchi. Diminished breath sounds on the right. CARDIOVASCULAR: Irregular rhythm, tachycardic. ABDOMEN: Soft. Positive bowel sounds. No organomegaly. Nontender. No distention. EXTREMITIES: No bilateral lower extremity edema. NEUROLOGIC: Awake, alert, oriented, and able to follow simple commands. LABORATORY DATA: Reviewed; WBC 5.5, RBC 2.53, hemoglobin 8.6, hematocrit 26.8, and platelets 178. APTT 33.8, D-dimer 2894, PCO2 of 33, PO2 of 85, HCO3 of 21.4, and . Sodium 136, potassium 3.6, chloride 102, carbon dioxide 25, anion gap 13, BUN 42, creatinine 1, GFR 53, random glucose 145, calcium 8.8, magnesium 1.7, total bilirubin 0.5, AST 30, ALT 34, alkaline phosphatase 90, proBNP 13,400, total protein 6.1, albumin 3.3, globulin 2.8, albumin-globulin ratio 1.2. Triglycerides 171, cholesterol 178, LDL cholesterol 116, HDL cholesterol 48, and TSH 1.69. Urinalysis trace leukocyte esterase. Chest CT shows no change in right-sided consolidation and pleural effusion. There is dense consolidation in the medial aspect and posterior aspect of the right upper lobe with air bronchogram. There is a large pleural effusion, a right-sided chest tube remains in place, there is no change. Chest x-ray shows increasing right lower lobe infiltrate. IMPRESSION AND PLAN: Ovarian cancer, presently actively being treated; chronic pleural effusion status post right nephrectomy, for remote renal cell carcinoma; atrial fibrillation with rapid ventricular response. We will consult interventional radiology for nonfunctioning PleurX catheter as CT scan does show pleural effusion. We will add Atrovent and Pulmicort. Shortness of breath may be due to nonfunctioning PleurX catheter which is causing a build up in pleural effusion. We will order procalcitonin; if positive, we will need to start antibiotic therapy. This patient was seen and examined with Dr. Love. Discussed assessment and plan as described above. Thank you for this consult. We will follow with you. Casey Galvan APN Concepcion Love MD [facility] # [id number] PERLITA
[2018-05-21 14:23] LABS: HEMOGLOBIN 10.1 g/dL (12.0-16.0); MEAN CELL VOLUME 106.4 fl (80.0-105.0); MEAN CORPUSCULAR HEMOGLOBIN 34.1 pg (25.0-35.0); MEAN CORPUSCULAR HGB CONC 32.1 g/dl (31.0-37.0); MEAN PLATELET VOLUME 9.6 fl (7.0-11.0); RBC 2.96 10^6/uL (3.5-6.1); RED CELL DISTRIBUTION WIDTH 18.8 % (11.5-14.5); WHITE BLOOD COUNT 9.3 10^3/uL (4.5-11.0)
--- NOTE | 2018-05-21 16:31 | CARD ---
APPROVED REPORT Date of service: 05/20/2018 EKG Measurement Heart [id number] <Conclusion> Atrial fibrillation with rapid ventricular response Right bundle branch block Abnormal ECG
[2018-05-21] MEDS: BUDESONIDE 180 MCG IH SCH (17:30)
[2018-05-22] MEDS: Ipratropium 0.02% Inhal Soln (0.5 mg/2.5 ml) UD IH SCH ×4 (01:38→20:19)
--- NOTE | 2018-05-22 05:11 | CON ---
DATE: 05/21/2018 REASON FOR CONSULTATION: Solitary kidney, planned CTA of chest. HISTORY OF PRESENT ILLNESS: A 78-year-old lady known to me from prior evaluation. The patient was admitted yesterday with complaints of increasing shortness of breath, difficulty breathing, cough. The patient has a history of CAD, small cell CA of lung, stage IIIB ovarian cancer, history of nephrectomy, history of pleural effusion, right pleural catheter; currently on carboplatin and etoposide-based chemotherapy. The patient reported 4 days of worsening dyspnea and dyspnea on exertion. Empiric treatment with steroids and antibiotics as an outpatient. No fevers. Found to have new onset atrial fibrillation. PAST MEDICAL AND SURGICAL HISTORY: As mentioned above. SOCIAL HISTORY: Ex-smoker, no alcohol use, no IV drug abuse. ALLERGIES: NO KNOWN DRUG ALLERGIES. MEDICATIONS AT HOME: Oxycodone; Zaroxolyn Thursday, Thursday and Thursday; Ambien; prednisone; Singulair; Toprol-XL 75; mag oxide; Eliquis. REVIEW OF SYSTEMS: All systems are reviewed, pertinent positives as mentioned in the history of presenting illness, rest unremarkable. PHYSICAL EXAMINATION: GENERAL: Elderly lady sitting in bed. VITAL SIGNS: Blood pressure 113/72, heart rate 113, respiratory rate 18 to 24, temperature 98.6. HEENT: Normocephalic, atraumatic, positive pallor. NECK: Supple, no JVD. LUNGS: Bilateral equal air entry, bilateral equal expansion, decreased breath sounds at right base. CARDIAC: S1, S2; irregularly irregular. No murmur, no rub. ABDOMEN: Soft, nondistended, nontender; bowel sounds present. EXTREMITIES: No lower extremity edema. INTAKE AND OUTPUT: Not charted. LABORATORY DATA: WBC 9, hemoglobin 10, hematocrit 31.5, platelets 206. Sodium 136, potassium 3.6, chloride 102, CO2 of 25, BUN 42, creatinine 1, glucose 145, calcium 8.8, phosphorus not checked. CURRENT MEDICATIONS: Ambien; Atrovent; Pulmicort; Cardizem at 10 mg per hour; Claritin; Ecotrin; Eliquis 5 b.i.d.; mag oxide; Singulair; Solu-Cortef; Toprol-XL 100; Zaroxolyn 2.5 Thursday, Thursday, and Thursday. ASSESSMENT: 1. Shortness of breath, dyspnea on exertion, history of recurrent right pleural effusion. 2. New onset of atrial fibrillation with rapid ventricular response. 3. Volume overload. 4. History of lung cancer. 5. History of ovarian cancer. 6. Carboplatin-based chemotherapy. PLAN: 1. Recommend gentle diuresis at present. 2. Cardizem IV for rate control. 3. Keep O's greater than I's. 4. Would hold diuretics if contrast study is planned. Deanna Ivy MD
[2018-05-22] MEDS: Pantoprazole 20 mg EC Tab PO SCH (06:11)
[2018-05-22 06:39] LABS: GRAN # 6.24 (1.4-6.5); GRAN % 83.3 % (50.0-68.0); HEMOGLOBIN 9.7 g/dL (12.0-16.0); LYMPH # 0.9 (1.2-3.4); LYMPH % 11.6 % (22.0-35.0); MEAN CELL VOLUME 107.2 fl (80.0-105.0); MEAN CORPUSCULAR HEMOGLOBIN 33.3 pg (25.0-35.0); MEAN CORPUSCULAR HGB CONC 31.1 g/dl (31.0-37.0); MEAN PLATELET VOLUME 9.9 fl (7.0-11.0); MONO # 0.4 (0.1-0.6); MONO % 5.1 % (1.0-6.0); RBC 2.91 10^6/uL (3.5-6.1); WHITE BLOOD COUNT 7.5 10^3/uL (4.5-11.0)
[2018-05-22 06:51] LABS: ALB/GLOB RATIO 1.2 (1.1-1.8); ALBUMIN 3.3 g/dL (3.0-4.8); CALCIUM 8.3 mg/dL (8.4-10.5)
[2018-05-22] MEDS ORDERED: Metoprolol Succinate 100 mg XL Tab PO SCH (08:00)
--- NOTE | 2018-05-22 08:41 | CP.PCM.PN ---
Subjective - Date & Time of Evaluation Date of Evaluation: 05/22/18 Time of Evaluation: 07:00 - Subjective Subjective: She feels better. No CP or SOB now. On IV card. drip 10 mg/hr. V/S noted. AF ~ 80s PE: Lungs: clear Cor: irreg S1S2 Abd.: soft Ext.: no edema Neuro.: alert I/O= 310/400 reorded Labs noted: K+ = 3.2 BC X2 NG at 24 hrs Objective - Vital Signs/Intake and Output Vital Signs (last 24 hours): Temp Pulse Resp BP Pulse Ox 97.5 F L 88 20 102/67 97 05/22/18 06:00 05/22/18 06:00 05/22/18 06:00 05/22/18 06:00 05/22/18 06:00 Intake and Output: 05/22/18 05/22/18 06:59 18:59 Intake Total 220 Output Total 400 Balance -180 - Medications Medications: Current Medications Apixaban (Eliquis) 5 mg PO BID [facility]; Protocol Last Admin: 05/21/18 17:28 Dose: 5 mg Aspirin (Ecotrin) 81 mg PO DAILY [facility] Last Admin: 05/21/18 11:08 Dose: 81 mg Cholecalciferol (Vitamin D) 1,000 intlu PO DAILY [facility] Last Admin: 05/21/18 11:09 Dose: 1,000 intlu Guaifenesin/Dextromethorphan (Robitussin Dm) 5 ml PO Q4H PRN PRN Reason: Cough Hydrocortisone Sodium Succinate (Solu-Cortef) 50 mg IVP Q8 [facility] Last Admin: 05/22/18 06:10 Dose: 50 mg diltiaZEM IVPB 100mg in NS (Cardizem 100mg In Ns) 100 mls @ 10 mls/hr IV .Q10H PRN; Protocol PRN Reason: TITRATE PER MD ORDER Last Admin: 05/21/18 23:33 Dose: 10 mg/hr, 10 mls/hr Ipratropium [place] (Atrovent) 0.5 mg IH [id number] [facility] Last Admin: 05/22/18 07:33 Dose: 0.5 mg Loratadine (Claritin) 10 mg PO DAILY [facility] Last Admin: 05/21/18 11:20 Dose: 10 mg Magnesium Oxide (Mag-Ox) 400 mg PO DAILY [facility] Last Admin: 05/21/18 11:09 Dose: 400 mg Metolazone (Zaroxolyn) 2.5 mg PO MWF [facility] Last Admin: 05/21/18 11:20 Dose: 2.5 mg Metoprolol Succinate (Toprol Xl) 100 mg PO BRK [facility] Montelukast Sodium (Singulair) 10 mg PO HS [facility] Last Admin: 05/21/18 21:55 Dose: 10 mg Budesonide [ Pulmicort Flexhaler] 180 Mcg (Home) 180 mcg IH DAILY [facility] Last Admin: 05/21/18 17:30 Dose: Not Given Oxycodone/Acetaminophen (Percocet 5/325 Mg Tab) 1 tab PO Q4H PRN PRN Reason: Pain, moderate (4-7) Stop: 05/23/18 13:52 Pantoprazole Sodium (Protonix Ec Tab) 20 mg PO 0600 [facility] Last Admin: 05/22/18 06:11 Dose: 20 mg Potassium Chloride (K-Dur 20 Meq Er Tab) 20 meq PO BID [facility] Pyridoxine HCl (Vitamin B6 50 Mg Tab) 100 mg PO DAILY [facility] Last Admin: 05/21/18 11:09 Dose: 100 mg Zolpidem Tartrate (Ambien) 5 mg PO HS PRN; Protocol PRN Reason: Insomnia Last Admin: 05/21/18 23:33 Dose: 5 mg - Labs Labs: 05/22/18 06:20 05/22/18 06:20 APTT 33.8 Seconds (25.1-36.5) 05/20/18 12:32 Assessment and Plan - Assessment and Plan (Free Text) Assessment: Dyspnea and Palpitations AF with RVR Chronic pleural effusion with non-functioning PleurEx SC Lung cancer Ovarian cancer with mets Remote RCC with nephrectomy CAD/PCI PAD/IC HBP RA CVD AAA DVT GB surgery Plan: Continue IV dilt at 10 Increase metoprolol 100/day and titrate OOB to chair IR evaluation of PleurEx As per Oncology, Pulmonary Renal Replace K+ Will follow.
[2018-05-22] MEDS: BUDESONIDE 180 MCG IH SCH (09:23)
[2018-05-22] MEDS: Magnesium Oxide 400 mg Tab UD PO SCH (09:27)
[2018-05-22] MEDS: Potassium Chloride 20 mEq ER Tab PO SCH ×2 (09:29→18:18)
[2018-05-22] MEDS: Cholecalciferol 1,000 INTLU TAB PO SCH (09:29)
[2018-05-22] MEDS: diltiaZEM IVPB 100mg in NS 100 ML IV PRN (10:49)
[2018-05-22] MEDS: Bacitracin Ointment 30 GM TUBE TOP SCH (12:00)
[2018-05-22] MEDS ORDERED: Bacitracin Ointment 30 GM TUBE TOP SCH (12:00)
--- NOTE | 2018-05-22 12:23 | PN ---
DATE: 05/22/2018 PULMONARY PROGRESS NOTE SUBJECTIVE: Patient sitting up in bed, reports feeling well today. Denies any shortness of breath. No overnight events reported. No headache, rhinitis, cough, shortness of breath, chest pain, abdominal pain, nausea, vomiting, diarrhea, leg pain, leg swelling reported. OBJECTIVE: VITAL SIGNS: Blood pressure 102/64, pulse 88, temp 97.5, oxygen saturation 97 in nasal cannula. GENERAL: No acute distress. HEENT: Moist mucous membranes. NECK: Supple. No JVD. No thyromegaly. LUNGS: Diminished breath sounds on right. CARDIOVASCULAR: S1 and S2 audible. ABDOMEN: Soft, nontender, no distention, no organomegaly. EXTREMITIES: No bilateral lower extremity edema. NEUROLOGIC: Awake, alert, verbal, able to follow commands. LABORATORY DATA: Reviewed. WBC 7.5, RBC 2.91, hemoglobin 9.7, hematocrit 31.2, platelets 224. Sodium 136, potassium 3.2, chloride 101, carbon dioxide 28, anion gap 10, BUN 46, creatinine 1.2, GFR 43, random glucose 116, calcium 8.3, magnesium 1.7, total bilirubin 0.6, AST 30, ALT 37, alkaline phosphatase 88, total protein 6.1, albumin 3.3, globulin 2.8, albumin-globulin ratio 1.2, procalcitonin 0.43. MEDICATIONS: Reviewed. Eliquis 5 mg twice a day, aspirin 81 mg daily, vitamin D 1000 units daily, Cardizem 100 mg IV every 10 hours as needed titration, Robitussin DM 5 mg every 4 hours as needed, Solu-Cortef 15 mg IV push every 8 hours, Atrovent 0.5 mg inhalation every 6 hours, Claritin 10 mg p.o. daily, magnesium oxide 400 mg daily, metolazone 2.5 mg Thursday, Thursday, Thursday, metoprolol succinate 100 mg daily, Singulair 10 mg at bedtime, budesonide 180 mcg inhalation daily, Percocet 5/325 mg 1 tab p.o. every 4 hours p.r.n. moderate pain, Protonix 20 mg daily, potassium chloride 20 mEq twice a day, vitamin B6 of 500 mg daily, Ambien 5 mg p.o. bedtime as needed. ASSESSMENT AND PLAN: Ovarian cancer presently being treated, chronic pleural effusion, patient is status post right nephrectomy for remote renal cell carcinoma; atrial fibrillation with rapid ventricular response, heart rate and pulse oximetry stable at this time. Patient to be seen by Interventional Radiology for a nonfunctioning PleurX catheter. Continue inhaled bronchodilators, steroids, we do not recommend antibiotic treatment at this time, procalcitonin negative. This patient was seen and examined with Dr. Love. Discussed assessment and plan as described above. Thank you for this consult. We will follow with you. Casey Galvan APN Concepcion Love MD [facility]
--- NOTE | 2018-05-22 12:59 | CP.PCM.CON ---
History of Present Illness - History of Present Illness History of Present Illness: General surgery consult for Dr. 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 Surgery was consulted for evaluation of a left lower extremity wound. Patient states that the area has been injured for approximately 1 week though she does not recall the specific incident in which she injured it. She states that it will occasionally ooze blood as she is on Eloquis. She indicates that she often has small areas like this which usually resolve on their own. She otherwise denies any GRIJALVA, CP, abdominal pain, difficulty ambulating and other extremity pain or weakness. PMH: As above PSH: cholecystectomy Allergies: none known Social: Former smoker, denies alcohol and illicit drug use Family History: Unknown Review of Systems - Review of Systems All systems: reviewed and no additional remarkable complaints except (as per HPI) Past Patient History - Infectious Disease Hx of Infectious Diseases: None - Past Social History Smoking Status: Former Smoker - CARDIAC Hx Congestive Heart Failure: Yes Hx Hypercholesterolemia: Yes Hx Hypertension: Yes Hx Peripheral Vascular Disease: Yes - PULMONARY Hx Respiratory Disorders: Yes - NEUROLOGICAL Hx Neurological Disorder: No - HEENT Hx HEENT Problems: Yes Hx Cataracts: Yes - RENAL Hx Chronic Kidney Disease: No - ENDOCRINE/METABOLIC Hx Endocrine Disorders: No - HEMATOLOGICAL/ONCOLOGICAL Hx Cancer: Yes - INTEGUMENTARY Hx Dermatological Problems: No - MUSCULOSKELETAL/RHEUMATOLOGICAL Hx Falls: Yes - GASTROINTESTINAL Hx Gastrointestinal Disorders: No - GENITOURINARY/GYNECOLOGICAL Hx Genitourinary Disorders: No - PSYCHIATRIC Hx Psychophysiologic Disorder: No Hx Substance Use: No - SURGICAL HISTORY Hx Coronary Stent: Yes - ANESTHESIA Hx Anesthesia Reactions: No Hx Malignant Hyperthermia: No Meds Allergies/Adverse Reactions: Allergies Allergy/AdvReac Type Severity Reaction Status Date / Time No Known Allergies Allergy Verified 05/20/18 12:03 - Medications Medications: Current Medications Apixaban (Eliquis) 5 mg PO BID [facility]; Protocol Last Admin: 05/22/18 09:29 Dose: 5 mg Aspirin (Ecotrin) 81 mg PO DAILY [facility] Last Admin: 05/22/18 09:29 Dose: 81 mg Bacitracin (Bacitracin) 0 gm TOP DAILY [facility] Last Admin: 05/22/18 12:00 Dose: 1 applic Cholecalciferol (Vitamin D) 1,000 intlu PO DAILY [facility] Last Admin: 05/22/18 09:29 Dose: 1,000 intlu Guaifenesin/Dextromethorphan (Robitussin Dm) 5 ml PO Q4H PRN PRN Reason: Cough Hydrocortisone Sodium Succinate (Solu-Cortef) 50 mg IVP Q8 [facility] Last Admin: 05/22/18 06:10 Dose: 50 mg diltiaZEM IVPB 100mg in NS (Cardizem 100mg In Ns) 100 mls @ 10 mls/hr IV .Q10H PRN; Protocol PRN Reason: TITRATE PER MD ORDER Last Admin: 05/22/18 10:49 Dose: 10 mg/hr, 10 mls/hr Ipratropium [place] (Atrovent) 0.5 mg IH [id number] [facility] Last Admin: 05/22/18 07:33 Dose: 0.5 mg Loratadine (Claritin) 10 mg PO DAILY [facility] Last Admin: 05/22/18 09:29 Dose: 10 mg Magnesium Oxide (Mag-Ox) 400 mg PO DAILY [facility] Last Admin: 05/22/18 09:27 Dose: 400 mg Metolazone (Zaroxolyn) 2.5 mg PO MWF [facility] Last Admin: 05/21/18 11:20 Dose: 2.5 mg Metoprolol Succinate (Toprol Xl) 100 mg PO BRK [facility] Last Admin: 05/22/18 08:34 Dose: Not Given Montelukast Sodium (Singulair) 10 mg PO HS [facility] Last Admin: 05/21/18 21:55 Dose: 10 mg Budesonide [ Pulmicort Flexhaler] 180 Mcg (Home) 180 mcg IH DAILY [facility] Last Admin: 05/22/18 09:23 Dose: Not Given Oxycodone/Acetaminophen (Percocet 5/325 Mg Tab) 1 tab PO Q4H PRN PRN Reason: Pain, moderate (4-7) Stop: 05/23/18 13:52 Pantoprazole Sodium (Protonix Ec Tab) 20 mg PO 0600 [facility] Last Admin: 05/22/18 06:11 Dose: 20 mg Potassium Chloride (K-Dur 20 Meq Er Tab) 20 meq PO BID [facility] Last Admin: 05/22/18 09:29 Dose: 20 meq Pyridoxine HCl (Vitamin B6 50 Mg Tab) 100 mg PO DAILY [facility] Last Admin: 05/22/18 09:29 Dose: 100 mg Zolpidem Tartrate (Ambien) 5 mg PO HS PRN; Protocol PRN Reason: Insomnia Last Admin: 05/21/18 23:33 Dose: 5 mg Physical Exam - Constitutional Appears: Well, Non-toxic, No Acute Distress - Head Exam Head Exam: ATRAUMATIC, NORMOCEPHALIC - Eye Exam Eye Exam: EOMI - ENT Exam ENT Exam: Mucous Membranes Moist - Respiratory Exam Respiratory Exam: NORMAL BREATHING PATTERN - Cardiovascular Exam Cardiovascular Exam: REGULAR RHYTHM - GI/Abdominal Exam GI & Abdominal Exam: Soft. absent: Distended, Guarding, Tenderness - Extremities Exam Extremities exam: Positive for: normal capillary refill, pedal pulses present. Negative for: calf tenderness, pedal edema Additional comments: small 1cm x 1cm skin tear to the distal anterior ramírez, no active bleeding, edema or purulent fluid - Neurological Exam Neurological exam: Alert, Oriented x3 - Psychiatric Exam Psychiatric exam: Normal Affect, Normal Mood - Skin Skin Exam: Dry, Normal Color, Warm Additional comments: small 1cm x 1cm skin tear distal anterior left lower extremity, numerous ecchymotic areas of various size and age over the arms and legs bilaterally Results - Vital Signs Recent Vital Signs: Last Vital Signs Temp 97.5 F L 05/22/18 06:00 Pulse 80 05/22/18 08:34 Resp 20 05/22/18 06:00 BP 90/53 L 05/22/18 08:34 Pulse Ox 97 05/22/18 06:00 - Labs Result Diagrams: 05/22/18 06:20 05/22/18 06:20 Labs: Laboratory Results - last 24 hr 05/21/18 05/21/18 05/22/18 12:00 14:20 06:20 WBC 9.3 D 7.5 RBC 2.96 L 2.91 L Hgb 10.1 L 9.7 L Hct 31.5 L 31.2 L MCV 106.4 H 107.2 H MCH 34.1 33.3 MCHC 32.1 31.1 RDW 18.8 H 19.0 H Plt Count 206 224 MPV 9.6 9.9 Gran % 83.3 H Lymph % (Auto) 11.6 L [place] % (Auto) 5.1 Eos % (Auto) 0.0 L Baso % (Auto) 0.0 Gran # 6.24 Lymph # (Auto) 0.9 L [place] # (Auto) 0.4 Eos # (Auto) 0.0 Baso # (Auto) 0.00 Sodium Potassium Chloride Carbon Dioxide Anion Gap BUN Creatinine Est GFR ( Amer) Est GFR (Non-Af Amer) Random Glucose Calcium Magnesium Total Bilirubin AST ALT Alkaline Phosphatase Total Protein Albumin Globulin Albumin/Globulin Ratio Procalcitonin 0.43 05/22/18 06:20 WBC RBC Hgb Hct MCV MCH MCHC RDW Plt Count MPV Gran % Lymph % (Auto) [place] % (Auto) Eos % (Auto) Baso % (Auto) Gran # Lymph # (Auto) [place] # (Auto) Eos # (Auto) Baso # (Auto) Sodium 136 Potassium 3.2 L Chloride 101 Carbon Dioxide 28 Anion Gap 10 BUN 46 H Creatinine 1.2 Est GFR ( Amer) 52 Est GFR (Non-Af Amer) 43 Random Glucose 116 H Calcium 8.3 L Magnesium 1.7 Total Bilirubin 0.6 AST 30 ALT 37 Alkaline Phosphatase 88 Total Protein 6.1 Albumin 3.3 Globulin 2.8 Albumin/Globulin Ratio 1.2 Procalcitonin Assessment & Plan - Assessment and Plan (Free Text) Assessment: 78 yr old female with Anterior left lower extremity skin tear, 1cm x 1cm Plan: keep area covered place bacitracin over wound and optifoam dressing No further surgical intervention at this time please reconsult as needed Seen, examined and discussed with Dr. Gabino Julian, PGY 1 - Date & Time Date: 05/22/18 Time: 12:00
--- NOTE | 2018-05-22 22:39 | PN ---
DATE: 05/22/2018 ONCOLOGY PROGRESS NOTE LOCATION: The patient is in room 268, bed 2. SUBJECTIVE: The patient is sitting up out of bed in chair, reportedly feeling better. Denies any shortness of breath. No fever. No chills. No headaches. No significant coughing. No chest pain, abdominal pain, nausea, vomiting, no diarrhea, leg pain or leg swelling recorded. The patient feels that overall she is subjectively improved compared to when she came into the hospital. PHYSICAL EXAMINATION GENERAL: The patient is in no acute distress. The patient is awake, alert and oriented. The patient has multiple ecchymosis on her arms, forearms and lower extremity including bleeding area on the left lower leg, which has been bandaged after applying local bacitracin. VITAL SIGNS: The patient's vital signs are stable. Blood pressure 102/64, heart rate 88, T-max is 98.4, O2 sat is 97% nasal cannula. HEENT: Reveals conjunctivae to be pale. Sclerae is anicteric. Pupils are equally reactive to light and accommodation. Examination of the oropharynx reveals no oropharyngeal lesions. NECK: Supple. There is no adenopathy. No jugular venous distention noted. LUNGS: Decreased breath sounds on the right side posteriorly. Left lung reveals it to be clear. CARDIOVASCULAR SYSTEM: Reveals S1 and S2 to be normal. No gallop is heard. Her heart rate is now down to the 80s. ABDOMEN: Soft and nontender. No rebound, rigidity, or guarding is noted. There is no evidence of ascites. No palpable masses. EXTREMITIES: Reveals no palpable edema or obvious edema. The patient has had changes in the skin related to the patient being on chronic steroids and Eliquis. The patient has an area in the left lower extremity, which has been bandaged. NEUROLOGIC: Reveals higher functions to be normal. No focal deficits are noted. Plantars are flexors. AND RECTAL: Deferred. LABORATORY DATA: Reveals a white count of 7.5, hemoglobin 9.7, hematocrit 31.2 and platelet count of 224,000. Chemistries were reviewed sodium is 136, K is 3.2, chloride is 101, CO2 is 28, anion gap is 10, BUN is 46, creatinine is 1.2, GFR is 43, random glucose is 116, calcium is 8.3, magnesium is 1.7, total bili is 0.6. AST 34, ALT is 37, alkaline phosphatase is 88, total protein is 6.1, albumin is 3.3, globulin is 2.8, procalcitonin is 0.43. The patient's chest x-ray showed large right pleural effusion and nonfunctioning PleurX catheter on the right chest wall. MEDICATIONS: The patient's medications were reviewed. She is on Eliquis 5 twice a day, aspirin 81 mg daily, vitamin D 1000 units daily, Cardizem 100 mcg IV every 10 hours as needed, titrated because of heart rate, Robitussin DM 5 mg every 4 hours p.r.n., Solu-Cortef 50 mg IV push every 8 hours, Atrovent 0.5 mg inhalation every 6 hours, Claritin 10 mg p.o. daily, magnesium oxide 400 mg daily, metolazone 2.5 mg on Thursday, Thursday, and Thursday, metoprolol succinate 100 mg daily, Singulair 10 mg at bedtime, budesonide 180 mcg inhalation daily, Percocet 5/325 mg as needed every 4 hours, Protonix 20 mg daily, potassium chloride 20 mEq twice a day, vitamin B6 500 mg daily, and Ambien 5 mg p.o. bedtime p.r.n. ASSESSMENT NOTES AND PLAN: The patient is stage IIIB ovarian carcinoma, currently on treatment with Avastin and gemcitabine, nonfunctioning PleurX catheter with large right pleural effusion on the right side. Atrial fibrillation with moderate ventricular response, heart rate was contributing to the patient's shortness of breath and heart failure, which is improved significantly. The patient is on bronchodilator now along with medications to control of the heart rate and overall appears markedly improved, was a 90% improvement. Discussed with the patient in great detail today along with the stress test. Plan is to PleurX catheter and drain well on Thursday. I have already spoken with Dr. Mario Yee about the plan and we are going to proceed accordingly. Discussed my findings in detail with Dr. Love as well. We hope to continue this systemic therapy with Avastin and gemcitabine once the cardiac status and the PleurX catheter issues are resolved. Our ultimate goal is to see the patient, can be assessed for some form of surgery after the neoadjuvant therapy for her ovarian cancer at this point in time. Her renal cell carcinoma and small cell lung cancer appears to be currently in remission. This is a complex patient with multiple comorbid medical issues. Please make a note that considerable amount of time was spent in correlating all the facts and discussing with the patient and the family regarding what the treatment plan should be and which direction we should proceed. Time spent with the patient was greater than 80 minutes. Tania Lind MD
[2018-05-23] MEDS: diltiaZEM IVPB 100mg in NS 100 ML IV PRN (01:27)
[2018-05-23] MEDS: Ipratropium 0.02% Inhal Soln (0.5 mg/2.5 ml) UD IH SCH ×4 (02:08→19:56)
--- NOTE | 2018-05-23 03:39 | PN ---
DATE: 05/22/2018 SUBJECTIVE: The patient is currently seen lying comfortable in bed on telemetry. She remains in atrial fibrillation with a heart rate in the 80s. Her BUN is slightly higher at 46 with a creatinine slightly higher at 1.2. The patient does remain on low-dose diuretic therapy. She also remains on steroids. MEDICATIONS: Medication list reviewed. The patient is on Pulmicort, Ambien, Atrovent, bacitracin, IV Cardizem, Claritin, Ecotrin, Eliquis, potassium tablets, mag oxide, Percocet, Protonix, Robitussin, Singulair, Solu-Cortef, Toprol, vitamin B6, vitamin D and Zaroxolyn 2.5 mg 3 days a week. OBJECTIVE INTAKE/OUTPUT: Intake is 310, output is 400. VITAL SIGNS: Blood pressure is 93/56, temperature 97.2, heart rate is 84 and irregular with a respiratory rate of 20. HEENT: Shows her to be normocephalic and atraumatic. Conjunctivae are pale. Sclerae are nonicteric. NECK: Supple. No neck vein distention. CHEST: Decreased breath sounds at the right base with a right pleural tube in place. Left lung is clear. CARDIOVASCULAR: Shows an irregular S1 and S2 with no audible murmurs, rubs or gallops. ABDOMEN: Soft. Nondistended. Bowel sounds normal. No rebound or guarding. EXTREMITIES: Show no lower extremity cyanosis, clubbing or edema. LABORATORY DATA AND IMAGING: CBC today: White blood cell count 7.5, hemoglobin stable at 9.7, platelet count is 224,000. Chemistries show a potassium of 3.2, supplemented earlier today. Sodium 136. Magnesium level was 1.7. BUN is 46 with a creatinine of 1.2, this is up from 38 and 0.9. The patient's baseline BUN is in the mid 20s. Her baseline creatinine is below 1. Microbiology: Urine is positive for gram-positive cocci and gram-negative gideon. Blood cultures are negative at 48 hours. ASSESSMENT: 1. Mild elevation of BUN and creatinine in the setting of diuretic therapy along with IV steroids. 2. History of small cell lung cancer and stage III B ovarian cancer. The patient is on a carboplatin and etoposide-based chemotherapy regimen. 3. Status post right nephrectomy for renal cell carcinoma. She has a solitary left kidney. 4. Atrial fibrillation with rapid ventricular response. With the initiation of IV Cardizem, her heart rate decreased down into the 80s, which is acceptable. 5. History of anemia, likely secondary to ongoing malignancy. PLAN: 1. Continue to maintain the patient on IV Cardizem. 2. For right now, continue the patient on low-dose diuretic therapy. 3. Accept a mild degree of prerenal azotemia given the need for IV steroid therapy along with diuretic therapy. 4. Dr. Lind to discuss with the patient all further options regarding treatment of her malignancy. 5. Continue to monitor labs on a daily basis, and we will continue to follow the patient closely with you. Linden Hdez MD
[2018-05-23] MEDS: Pantoprazole 20 mg EC Tab PO SCH (05:31)
[2018-05-23 06:59] LABS: ALB/GLOB RATIO 1.2 (1.1-1.8); ALT/SGPT 38 U/L (7-56); AST/SGOT 28 U/L (14-36); BLOOD UREA NITROGEN 39 mg/dL (7-21); CALCIUM 8.4 mg/dL (8.4-10.5); GFR NON-AFRICAN AMERICAN > 60
[2018-05-23 07:08] LABS: BASO # 0.01 K/mm3 (0.0-2.0); BASO % 0.2 % (0.0-3.0); GRAN # 4.6 (1.4-6.5); GRAN % 79.3 % (50.0-68.0); HEMOGLOBIN 9.5 g/dL (12.0-16.0); LYMPH # 0.7 (1.2-3.4); LYMPH % 11.4 % (22.0-35.0); MEAN CELL VOLUME 107.7 fl (80.0-105.0); MEAN CORPUSCULAR HEMOGLOBIN 33.3 pg (25.0-35.0); MEAN CORPUSCULAR HGB CONC 30.9 g/dl (31.0-37.0); MEAN PLATELET VOLUME 9.8 fl (7.0-11.0); MONO # 0.5 (0.1-0.6); MONO % 9.1 % (1.0-6.0); RBC 2.85 10^6/uL (3.5-6.1); RED CELL DISTRIBUTION WIDTH 18.7 % (11.5-14.5); WHITE BLOOD COUNT 5.8 10^3/uL (4.5-11.0)
--- NOTE | 2018-05-23 07:27 | CP.PCM.PN ---
Subjective - Date & Time of Evaluation Date of Evaluation: 05/23/18 Time of Evaluation: 07:00 - Subjective Subjective: She feels better. No CP or SOB now. On IV card. drip 10 mg/hr. Was OOB to chair and walked a short distance yesterday. V/S noted. AF ~ 80s PE: Lungs: clear, decreased BS rt base. Cor: irreg S1S2 Abd.: soft Ext.: no edema Neuro.: alert Labs noted: K+ = 3.3 BC X2 NG at 48 hrs Objective - Vital Signs/Intake and Output Vital Signs (last 24 hours): Temp Pulse Resp BP Pulse Ox 97.6 F 86 18 111/65 93 L 05/23/18 06:00 05/23/18 06:00 05/23/18 06:00 05/23/18 06:00 05/23/18 06:00 Intake and Output: 05/23/18 05/23/18 06:59 18:59 Intake Total 830 Balance 830 - Medications Medications: Current Medications Apixaban (Eliquis) 5 mg PO BID [facility]; Protocol Last Admin: 05/22/18 18:19 Dose: 5 mg Aspirin (Ecotrin) 81 mg PO DAILY [facility] Last Admin: 05/22/18 09:29 Dose: 81 mg Bacitracin (Bacitracin) 0 gm TOP DAILY [facility] Last Admin: 05/22/18 12:00 Dose: 1 applic Cholecalciferol (Vitamin D) 1,000 intlu PO DAILY [facility] Last Admin: 05/22/18 09:29 Dose: 1,000 intlu Guaifenesin/Dextromethorphan (Robitussin Dm) 5 ml PO Q4H PRN PRN Reason: Cough Hydrocortisone Sodium Succinate (Solu-Cortef) 50 mg IVP Q8 [facility] Last Admin: 05/23/18 05:32 Dose: 50 mg diltiaZEM IVPB 100mg in NS (Cardizem 100mg In Ns) 100 mls @ 10 mls/hr IV .Q10H PRN; Protocol PRN Reason: TITRATE PER MD ORDER Last Admin: 05/23/18 01:27 Dose: 10 mg/hr, 10 mls/hr Ipratropium [place] (Atrovent) 0.5 mg IH [id number] [facility] Last Admin: 05/23/18 07:16 Dose: 0.5 mg Loratadine (Claritin) 10 mg PO DAILY [facility] Last Admin: 05/22/18 09:29 Dose: 10 mg Magnesium Oxide (Mag-Ox) 400 mg PO DAILY [facility] Last Admin: 05/22/18 09:27 Dose: 400 mg Metolazone (Zaroxolyn) 2.5 mg PO MWF [facility] Last Admin: 05/21/18 11:20 Dose: 2.5 mg Metoprolol Succinate (Toprol Xl) 100 mg PO BRK [facility] Last Admin: 05/22/18 08:34 Dose: Not Given Montelukast Sodium (Singulair) 10 mg PO HS [facility] Last Admin: 05/22/18 22:08 Dose: 10 mg Budesonide [ Pulmicort Flexhaler] 180 Mcg (Home) 180 mcg IH DAILY [facility] Last Admin: 05/22/18 09:23 Dose: Not Given Oxycodone/Acetaminophen (Percocet 5/325 Mg Tab) 1 tab PO Q4H PRN PRN Reason: Pain, moderate (4-7) Stop: 05/23/18 13:52 Pantoprazole Sodium (Protonix Ec Tab) 20 mg PO 0600 [facility] Last Admin: 05/23/18 05:31 Dose: 20 mg Potassium Chloride (K-Dur 20 Meq Er Tab) 20 meq PO BID [facility] Last Admin: 05/22/18 18:18 Dose: 20 meq Pyridoxine HCl (Vitamin B6 50 Mg Tab) 100 mg PO DAILY [facility] Last Admin: 05/22/18 09:29 Dose: 100 mg Zolpidem Tartrate (Ambien) 5 mg PO HS PRN; Protocol PRN Reason: Insomnia Last Admin: 05/22/18 22:09 Dose: 5 mg - Labs Labs: 05/23/18 06:35 05/23/18 06:35 APTT 33.8 Seconds (25.1-36.5) 05/20/18 12:32 Assessment and Plan - Assessment and Plan (Free Text) Assessment: Dyspnea and Palpitations AF with RVR Chronic pleural effusion with non-functioning PleurEx Squamous cell Lung cancer Ovarian cancer with mets Remote RCC with nephrectomy CAD/PCI PAD/IC HBP RA CVD AAA DVT GB surgery Plan: Wean IV dilt to 5 mg/hr Increase metoprolol 125/day and titrate OOB to chair/amb. as víctor. IR evaluation of PleurEx As per Oncology, Pulmonary, and Renal Replace K+ Will follow.
[2018-05-23] MEDS ORDERED: Metoprolol Succinate 100 mg XL Tab PO SCH (08:00)
[2018-05-23] MEDS ORDERED: Vancomycin 500mg in NS 500 MG/100 ML BAG IVPB STA ×2 (09:52→10:02)
[2018-05-23] MEDS ORDERED: Potassium Chloride 20 mEq ER Tab PO SCH (10:00)
[2018-05-23] MEDS ORDERED: Bacitracin Ointment 30 GM TUBE TOP SCH (10:00)
[2018-05-23] MEDS ORDERED: diltiaZEM IVPB 100mg in NS 100 ML IV PRN (10:00)
[2018-05-23] MEDS: Cholecalciferol 1,000 INTLU TAB PO SCH (10:43)
[2018-05-23] MEDS: Metoprolol Succinate 25 mg XL Tab PO SCH (10:44)
[2018-05-23] MEDS: Magnesium Oxide 400 mg Tab UD PO SCH (10:44)
[2018-05-23] MEDS: Potassium Chloride 10 mEq ER Tab PO SCH ×2 (10:44→17:11)
[2018-05-23] MEDS: Metoprolol Succinate 100 mg XL Tab PO SCH (10:44)
[2018-05-23] MEDS: Bacitracin Ointment 30 GM TUBE TOP SCH (11:18)
[2018-05-23] MEDS: BUDESONIDE 180 MCG IH SCH (13:40)
[2018-05-23] MEDS ORDERED: DAPTOmycin 500 mg Inj (Cubicin) IVP SCH (13:45)
[2018-05-23] MEDS: Meropenem IV 1 gm in NS 1 GM/50 ML BAG IVPB SCH ×2 (15:25→21:36)
--- NOTE | 2018-05-23 16:44 | CON ---
DATE OF CONSULTATION: 05/23/2018 The patient is seen in Room 268, Bed 2. CHIEF COMPLAINT: Shortness of breath and positive blood cultures x1 day duration. HISTORY OF PRESENT ILLNESS: This is a 78-year-old female with history of coronary artery disease, history of small cell lung cancer, history of stage IIIB ovarian cancer with mets, history of renal cancer, congestive heart failure, rheumatoid arthritis, and history of nephrectomy. The patient has one kidney, who has a Port-A-Cath now with chronic pleural effusion with a right PleurX on the right chest underneath the right breast, who is admitted with shortness of breath, and on workup of her shortness of breath, blood cultures were done, which are now reported to be Gram-positive cocci and the patient is at this Port-A-Cath now for some time. PAST MEDICAL HISTORY: Significant for coronary artery disease, small cell lung cancer, stage IIIB ovarian cancer, congestive heart failure, renal cancer, rheumatoid arthritis, the ovarian cancer is with metastases. PAST SURGICAL HISTORY: Significant for Pleurx for the chronic pleural effusion onto her right chest. The patient also has a Port-A-Cath on the right chest. The patient has had a nephrectomy, cholecystectomy, and cardiac catheterization with stent placement. ALLERGIES: THE PATIENT HAS NO KNOWN ALLERGIES. REVIEW OF SYSTEMS: Shortness of breath is present. There is mild cough. No chest pain. There is no fever, no chills, no dysuria or frequency, no headaches or blurred vision, no neck pain or sore throat. PHYSICAL EXAMINATION: VITAL SINGS: The patient's temperature is 97; heart rate of 112; respiratory rate of 18, it was up to 24; saturation of 93%. HEENT: Unremarkable. NECK: Supple. LUNGS: Decreased breath sounds. HEART: Normal S1 and S2. ABDOMEN: Soft, nontender. No organomegaly. No rebound, no guarding, no masses. The Port-A-Cath site appears to be clean. The PleurX drainage underneath the right breast is also clean. LABORATORY EXAMINATION: Reveals the patient to have a white count of 5.8, a hemoglobin of 9, granulocytosis 83%. Coagulation is noted. D-dimer is elevated. Chemistries reveal a BUN of 39, creatinine of 0.9, and procalcitonin 0.43. Urinalysis is noted. Microbiology reveals the blood cultures are Gram-positive cocci in one bottle. The patient also has a urine culture, Enterococcus and E. coli. E. coli is pansensitive. The patient also had a chest x-ray and a CAT scan of the chest. The chest x-ray reveals the right lower lobe infiltrate, which is increasing as of the CT scan. ASSESSMENT AND PLAN: This is a 78-year-old female with history of coronary artery disease, small cell lung cancer, stage IIIB ovarian cancer with metastases, renal cancer, rheumatoid arthritis, congestive heart failure, who has a Port-A-Cath in the right chest, also has a chronic pleural effusion with PleurX drainage under her right breast, who has had a nephrectomy, she only has one kidney, history of cholecystectomy and cardiac catheterization with stent placement, now with shortness of breath, tachycardia, hypoxia, and positive blood cultures and positive infiltrate. 1. Sepsis with Gram-positive cocci bacteremia secondary to Port-A-Cath and right healthcare-associated pneumonia with procalcitonin 0.43. We will treat the patient with daptomycin. I am hesitant to use vancomycin in a patient with a GFR of 43 and with one kidney. We will use daptomycin for the Gram-positive cocci. We will order repeat blood cultures, discontinue the vancomycin, and order echocardiogram to rule out endocarditis. We will also add doxycycline p.o. and IV meropenem for the healthcare-associated pneumonia, pending repeat blood cultures and identification of Gram-positive cocci in the sputum cultures, MRSA screen, and CPK. We will order an echocardiogram to rule out vegetations. We will make further recommendations upon availability of the initial results. Reese Bradford MD
--- NOTE | 2018-05-23 21:53 | PN ---
DATE: 05/23/2018 ONCOLOGY PROGRESS NOTE LOCATION: The patient is in room 268, bed 2. 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 In the process, the patient also on admission had blood cultures and urine cultures done as part of the septic workup and patient as of this morning was told after me be getting notified from the lab that her blood cultures and urine cultures are positive for infection and that we may have to have her on antibiotics. Subjectively, the patient is feeling better. She has no chest pain. No shortness of breath. She is on IV Cardizem drip at 10 mg an hour. The patient was out of bed to the chair, was able to walk to the bathroom and short distance this morning as well. The patient denies any history of fevers, chills, nausea, vomiting or diarrhea. PHYSICAL EXAMINATION: GENERAL: Reveals the patient to be awake, alert, and oriented, in no acute distress. VITAL SIGNS: Stable. The patient continues to be in AFib in the rates around 80-88 per minute on the cardiac catheterization technician. HEENT: Head is normocephalic, atraumatic. Conjunctivae pale. Sclerae are anicteric. Pupils are equally reactive to light and accommodation. Examination of the oropharynx reveals no oropharyngeal lesions. Tongue is moist. No ulcerations are noted. NECK: Supple. There is no adenopathy. LUNGS: Decreased breath sounds at the right base posteriorly. Left lung is clear. HEART: Reveals PMI to be in the fifth intercostal space. S1 and S2 are noted. Heart rate is irregular. ABDOMEN: Soft, nontender; bowel sounds are present. EXTREMITIES: Reveal no ankle edema. Peripheral pulses are palpable. SKIN: The patient has extensive skin changes with ecchymosis related to combination of steroids, antiplatelet agents and Eliquis. NEUROLOGIC: Higher functions are normal. No focal deficits are noted. GENITOURINARY AND RECTAL: Deferred. LABORATORY DATA: Reviewed. The lab data from today reveal the following: White count is 5.8, hemoglobin 9.5, hematocrit 30.7, MCV is 107, and platelet count is 238. Sodium is 138, K is 3.3, the patient is on potassium replacement. BUN is 39, creatinine is 0.9. Random sugar is 120. Total protein is 5.5 with an albumin of 3. Blood cultures were reviewed. The patient has on the blood cultures gram-positive cocci. Staph aureus and coagulase negative staph are seen in the blood cultures, final report is pending. Urine culture shows Enterococcus viridans or E. coli in the urine. MEDICATIONS: The patient's medications were reviewed. The patient's medications are unchanged. New antibiotics had been ordered by Dr. Bradford, he was consulted earlier this morning. The patient had been started on Merrem, daptomycin, and oral doxycycline. Other meds are the same. The patient is on potassium supplements orally, which may have to be increased. She is on 20 mEq b.i.d. right now. The patient informs me that the Cardizem drip is going to be stopped soon once the oral medication metoprolol starts kicking in. 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 Has improvement in the heart rate with IV Cardizem and oral beta blockers. The plan is to switch her over to oral drugs by tomorrow. The patient has a loculated pleural effusion and she has a PleurX catheter on the right chest wall, which will be removed tomorrow morning. I did speak to Dr. Bradford, who will give the okay to remove the PleurX catheter and okay to also tap the fluid in a.m. while we still have her on antibiotics. Final cultures for the blood will tell us how long the patient needs to be on antibiotics and if they are real or contaminant. The patient also has history of metastatic renal cell carcinoma in remission and small cell lung carcinoma also in remission. 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 Meanwhile, we will continue all her medications, length of stay in the hospital over the next 2-3 days will be determined how long she needs the IV antibiotics. The patient, otherwise, clinically improved. Time spent with the patient is about 35 minutes collating all the information, discussing with the ID [employer] product consultant and strategizing the treatment plan for a.m. Please make a note, this is a complex patient with multiple comorbid medical issues. Tania Lind MD
--- NOTE | 2018-05-23 21:54 | PN ---
DATE: 05/23/2018 PULMONARY PROGRESS NOTE REFERRING PHYSICIAN: Dr. Lind SUBJECTIVE: She is sitting up in the bed. Feels much better. Still no drainage from PleurX catheter. No cough. No nausea. No vomiting or diarrhea. No leg pain or leg swelling. PHYSICAL EXAMINATION GENERAL: In no acute distress. VITAL SIGNS: Temperature is 98, heart rate is 74, respiratory rate is 18, blood pressure 100/64, pulse ox 98% on nasal cannula. HEENT: Moist mucous membrane. No ulcer or thrush noted. NECK: Supple. No JVD. LUNGS: Have one-third up decreased breath sounds in the right lung. HEART: S1 and S2. ABDOMEN: Soft, nontender. No organomegaly. EXTREMITIES: There is no edema. Has a left leg skin breakdown. NEUROLOGICAL: Awake and alert. Follows simple command. MEDICATIONS: She is on Ambien 5 mg at bedtime p.r.n., Atrovent inhaler every 6 hours, Bacitracin ointment to affected area, also getting budesonide inhaled daily, diltiazem IV drip, Claritin 10 mg daily, daptomycin mg every 24 hours, doxycycline 100 mg twice a day, Ecotrin 81 mg daily, Eliquis 5 mg twice a day, potassium 30 mEq twice a day, mag oxide 400 mg daily, meropenem 1 g IV every 8 hours, Protonix 40 mg daily, Robitussin DM 5 mL every 4 hours p.r.n., Singulair 10 mg at bedtime, Solu-Cortef 50 mg every 8 hours, mg daily, vitamin B6 100 mg daily, vitamin D 1000 international units daily, and Zaroxolyn 2.5 mg Thursday, Thursday and Thursday. LABORATORY DATA: Shows hemoglobin 9.5, hematocrit 30.7, WBC 5.8, platelet count is 238. Sodium 138, potassium 2.3, chloride 103, bicarbonate 30, BUN 39, creatinine 0.9, glucose 120, calcium is 8.4, phosphorus is 2.6, magnesium 1.9, AST 28, ALT 38, alk phos is 87, albumin is 3. Microbiology; blood culture has a Gram-positive cocci in one out of two bottles and urine has E. coli. Also has Aerococcus viridans. IMPRESSION AND PLAN: Bacteremia, urinary tract infection, history of ovarian cancer, has recurrent pleural effusion, has a PleurX catheter, which is malfunction, history of renal cell carcinoma with nephrectomy, atrial fibrillation with rapid ventricular response. Pulmonary point of view, doing okay. We will decrease Solu-Medrol. May convert Cardizem to p.o. Awaiting to be evaluated by the interventional radiologist in the morning hopefully. Need culture of the pleural fluid and also drainage of the effusion. Gastric prophylaxis. Anticoagulation. Follow up labs in the morning. Thank you and we will follow you. Concepcion Love MD
[2018-05-24] MEDS: Ipratropium 0.02% Inhal Soln (0.5 mg/2.5 ml) UD IH SCH ×4 (02:20→20:15)
[2018-05-24] MEDS: Meropenem IV 1 gm in NS 1 GM/50 ML BAG IVPB SCH ×3 (05:11→22:30)
[2018-05-24] MEDS: Pantoprazole 20 mg EC Tab PO SCH (05:13)
[2018-05-24 06:51] LABS: BLOOD UREA NITROGEN 35 mg/dL (7-21); CALCIUM 8.6 mg/dL (8.4-10.5); GFR NON-AFRICAN AMERICAN > 60
--- NOTE | 2018-05-24 07:38 | CP.PCM.PN ---
Subjective - Date & Time of Evaluation Date of Evaluation: 05/24/18 Time of Evaluation: 07:32 - Subjective Subjective: Faby Barnes DO, PGY-2: Hematology and Oncology Progress Note for Dr. Lind Patient was seen and examined at bedside. Patient reports having less dyspnea with exertion, possibly because she is not walking at her usual pace. She repor ts that her pleurex catheter is to be taken out today. Otherwise, chart review indicates patient blood culture grew gram positive cocci, but final culture results have not been obtained. Also urine culture shows possible UTI. Infectious disease is on board and patient is on antibiotics at this point in time. She denies fever, chills, nausea, vomiting, or diarrhea. Objective - Vital Signs/Intake and Output Vital Signs (last 24 hours): Temp Pulse Resp BP Pulse Ox 97.4 F L 94 H 18 96/67 L 96 05/24/18 06:00 05/24/18 06:00 05/24/18 06:00 05/24/18 06:00 05/24/18 00:01 Intake and Output: 05/24/18 05/24/18 06:59 18:59 Intake Total 480 Balance 480 - Medications Medications: Current Medications Apixaban (Eliquis) 5 mg PO BID [facility]; Protocol Last Admin: 05/23/18 17:11 Dose: 5 mg Aspirin (Ecotrin) 81 mg PO DAILY [facility] Last Admin: 05/23/18 10:45 Dose: 81 mg Bacitracin (Bacitracin) 0 gm TOP DAILY [facility] Last Admin: 05/23/18 11:18 Dose: 1 applic Cholecalciferol (Vitamin D) 1,000 intlu PO DAILY [facility] Last Admin: 05/23/18 10:43 Dose: 1,000 intlu Doxycycline Hyclate (Doryx) 100 mg PO Q12 [facility]; Protocol Stop: 06/01/18 22:01 Last Admin: 05/23/18 21:39 Dose: 100 mg Guaifenesin/Dextromethorphan (Robitussin Dm) 5 ml PO Q4H PRN PRN Reason: Cough Hydrocortisone Sodium Succinate (Solu-Cortef) 40 mg IVP Q12 [facility] Last Admin: 05/23/18 21:38 Dose: 40 mg diltiaZEM IVPB 100mg in NS (Cardizem 100mg In Ns) 100 mls @ 5 mls/hr IV .Q20H PRN; Protocol PRN Reason: TITRATE PER MD ORDER Last Admin: 05/23/18 17:11 Dose: 5 mg/hr, 5 mls/hr Meropenem (Merrem Iv 1 Gm Premix) 1 gm in 50 mls @ 12.5 mls/hr IVPB Q8 [facility]; Protocol Last Admin: 05/24/18 05:11 Dose: 12.5 mls/hr Daptomycin 310 mg/ Sodium (Chloride) 100 mls @ 200 mls/hr IV Q24H [facility] Stop: 05/27/18 14:14 Last Admin: 05/23/18 16:43 Dose: 200 mls/hr Ipratropium [place] (Atrovent) 0.5 mg IH [id number] [facility] Last Admin: 05/24/18 02:20 Dose: 0.5 mg Loratadine (Claritin) 10 mg PO DAILY [facility] Last Admin: 05/23/18 10:43 Dose: 10 mg Magnesium Oxide (Mag-Ox) 400 mg PO DAILY [facility] Last Admin: 05/23/18 10:44 Dose: 400 mg Metolazone (Zaroxolyn) 2.5 mg PO MWF [facility] Last Admin: 05/21/18 11:20 Dose: 2.5 mg Metoprolol Succinate (Toprol Xl) 25 mg PO BRK [facility] Last Admin: 05/23/18 10:44 Dose: 25 mg Metoprolol Succinate (Toprol Xl) 100 mg PO BRK [facility] Last Admin: 05/23/18 10:44 Dose: 100 mg Montelukast Sodium (Singulair) 10 mg PO HS [facility] Last Admin: 05/23/18 21:39 Dose: 10 mg Budesonide [ Pulmicort Flexhaler] 180 Mcg (Home) 180 mcg IH DAILY [facility] Last Admin: 05/23/18 13:40 Dose: Not Given Pantoprazole Sodium (Protonix Ec Tab) 20 mg PO 0600 [facility] Last Admin: 05/24/18 05:13 Dose: 20 mg Potassium Chloride (Klor-Con 10) 30 meq PO BID [facility] Last Admin: 05/23/18 17:11 Dose: 30 meq Pyridoxine HCl (Vitamin B6 50 Mg Tab) 100 mg PO DAILY [facility] Last Admin: 05/23/18 10:44 Dose: 100 mg Zolpidem Tartrate (Ambien) 5 mg PO HS PRN; Protocol PRN Reason: Insomnia Last Admin: 05/23/18 22:02 Dose: 5 mg - Labs Labs: 05/23/18 06:35 05/24/18 06:00 APTT 33.8 Seconds (25.1-36.5) 05/20/18 12:32 - Constitutional Appears: Other (tired) - Head Exam Head Exam: ATRAUMATIC, NORMOCEPHALIC - Eye Exam Eye Exam: EOMI, Normal appearance - ENT Exam ENT Exam: Mucous Membranes Moist - Respiratory Exam Respiratory Exam: Decreased Breath Sounds (right lung base), NORMAL BREATHING PATTERN - Cardiovascular Exam Cardiovascular Exam: Tachycardia, Irregular Rhythm, +S1, +S2 - GI/Abdominal Exam GI & Abdominal Exam: Soft, Normal Bowel Sounds - Extremities Exam Extremities Exam: Normal Inspection. 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 She was found to be in atrial fibrillation with RVR. CT scan of the chest demonstrated no change in right-sided consolidation and pleural effusion. Interventional radiology consulted given the absence of drainage from the right pleurex catheter. IR will consider thoracentesis if fluid is demonstrated in lungs by US. Plan: 1) Severe Dyspnea in the setting of new-onset atrial fibrillation - Continue with Supplemental oxygen for target O2 saturation above 96% - Rule of ACS, troponins x 1 negative - BNP elevated to 13,000 - Chest X-ray reports increasing right lower lobe infiltrate; CT scan of the chest demonstrated no change in right-sided consolidation and pleural effusion. - Diltiazem 5 mg/hr drip discontinued - Metoprolol Succinate 150 mg PO daily - Continue Eliquis 5 mg BID - Cardiology consulted, Dr. Turk, appreciate recommendations 2) Sepsis with gram positive cocci, until proven otherwise - one blood culture positive for gram positive cocci in clusters - Procalcitonin 0.43 - Daptomycin per Infectious disease - Repeat blood cultures - Echocardiogram to rule out endocarditis 3) Healthcare associated pneumonia, pending repeat blood cultures and identification of Gram positive cocci in sputum - Doxycycline 100 mg q12h - Meropenem 1 gram q8h 4) Osteoarthritis - Percocet 5/325 q4h PRN 5) COPD - Singulair 10 mg HS - Atrovent q12h [facility] - Solucortef 40 mg q12h; taper per pulmonology 6) CAD - Aspirin 81 mg daily - Lipid panel shows elevated LDL of 117 - Consider Atorvastatin 40 mg PO HS 7) Elevated D-dimer in a patient with active cancer - Will not pursue further work-up given the clinically suspicion of DVT and PE is not high given the patient is already on Eliquis, 5 mg BID 8) DVT/GI prophylaxis - SCD/Protonix 40 mg PO daily Case reviewed and discussed with attending physician, Dr. Lind
[2018-05-24] MEDS: Metoprolol Succinate 25 mg XL Tab PO SCH (07:44)
[2018-05-24] MEDS: Metoprolol Succinate 100 mg XL Tab PO SCH (07:44)
[2018-05-24] MEDS ORDERED: Metoprolol Succinate 50 mg XL Tab PO SCH (08:06)
--- NOTE | 2018-05-24 08:11 | CP.PCM.PN ---
Subjective - Date & Time of Evaluation Date of Evaluation: 05/24/18 Time of Evaluation: 07:00 - Subjective Subjective: She feels better. No CP or SOB now. Off IV dilt this AM for 2.2 sec pause noted. V/S noted. AF ~ 80s PE: Lungs: clear, decreased BS rt base. Cor: irreg S1S2 Abd.: soft Ext.: no edema Neuro.: alert Labs noted: K+ = 3.5 BC X 1 + for GPC Objective - Vital Signs/Intake and Output Vital Signs (last 24 hours): Temp Pulse Resp BP Pulse Ox 97.4 F L 105 H 18 96/67 L 96 05/24/18 06:00 05/24/18 07:44 05/24/18 06:00 05/24/18 06:00 05/24/18 00:01 Intake and Output: 05/24/18 05/24/18 06:59 18:59 Intake Total 480 Balance 480 - Medications Medications: Current Medications Apixaban (Eliquis) 5 mg PO BID [facility]; Protocol Last Admin: 05/23/18 17:11 Dose: 5 mg Aspirin (Ecotrin) 81 mg PO DAILY [facility] Last Admin: 05/23/18 10:45 Dose: 81 mg Bacitracin (Bacitracin) 0 gm TOP DAILY [facility] Last Admin: 05/23/18 11:18 Dose: 1 applic Cholecalciferol (Vitamin D) 1,000 intlu PO DAILY [facility] Last Admin: 05/23/18 10:43 Dose: 1,000 intlu Doxycycline Hyclate (Doryx) 100 mg PO Q12 [facility]; Protocol Stop: 06/01/18 22:01 Last Admin: 05/23/18 21:39 Dose: 100 mg Guaifenesin/Dextromethorphan (Robitussin Dm) 5 ml PO Q4H PRN PRN Reason: Cough Hydrocortisone Sodium Succinate (Solu-Cortef) 40 mg IVP Q12 [facility] Last Admin: 05/23/18 21:38 Dose: 40 mg diltiaZEM IVPB 100mg in NS (Cardizem 100mg In Ns) 100 mls @ 5 mls/hr IV .Q20H PRN; Protocol PRN Reason: TITRATE PER MD ORDER Last Admin: 05/23/18 17:11 Dose: 5 mg/hr, 5 mls/hr Meropenem (Merrem Iv 1 Gm Premix) 1 gm in 50 mls @ 12.5 mls/hr IVPB Q8 [facility]; Protocol Last Admin: 05/24/18 05:11 Dose: 12.5 mls/hr Daptomycin 310 mg/ Sodium (Chloride) 100 mls @ 200 mls/hr IV Q24H [facility] Stop: 05/27/18 14:14 Last Admin: 05/23/18 16:43 Dose: 200 mls/hr Ipratropium [place] (Atrovent) 0.5 mg IH [id number] [facility] Last Admin: 05/24/18 07:42 Dose: 0.5 mg Loratadine (Claritin) 10 mg PO DAILY [facility] Last Admin: 05/23/18 10:43 Dose: 10 mg Magnesium Oxide (Mag-Ox) 400 mg PO DAILY [facility] Last Admin: 05/23/18 10:44 Dose: 400 mg Metolazone (Zaroxolyn) 2.5 mg PO MWF [facility] Last Admin: 05/21/18 11:20 Dose: 2.5 mg Metoprolol Succinate (Toprol Xl) 25 mg PO BRK [facility] Last Admin: 05/24/18 07:44 Dose: 25 mg Metoprolol Succinate (Toprol Xl) 100 mg PO BRK [facility] Last Admin: 05/24/18 07:44 Dose: 100 mg Montelukast Sodium (Singulair) 10 mg PO HS [facility] Last Admin: 05/23/18 21:39 Dose: 10 mg Budesonide [ Pulmicort Flexhaler] 180 Mcg (Home) 180 mcg IH DAILY [facility] Last Admin: 05/23/18 13:40 Dose: Not Given Pantoprazole Sodium (Protonix Ec Tab) 20 mg PO 0600 [facility] Last Admin: 05/24/18 05:13 Dose: 20 mg Potassium Chloride (Klor-Con 10) 30 meq PO BID [facility] Last Admin: 05/23/18 17:11 Dose: 30 meq Pyridoxine HCl (Vitamin B6 50 Mg Tab) 100 mg PO DAILY [facility] Last Admin: 05/23/18 10:44 Dose: 100 mg Zolpidem Tartrate (Ambien) 5 mg PO HS PRN; Protocol PRN Reason: Insomnia Last Admin: 05/23/18 22:02 Dose: 5 mg - Labs Labs: 05/23/18 06:35 05/24/18 06:00 APTT 33.8 Seconds (25.1-36.5) 05/20/18 12:32 Assessment and Plan - Assessment and Plan (Free Text) Assessment: Dyspnea and Palpitations AF with RVR Chronic pleural effusion with non-functioning PleurEx/ BC X1 + GPC Pneumonia Squamous cell Lung cancer Ovarian cancer with mets Remote RCC with nephrectomy CAD/PCI PAD/IC HBP RA CVD AAA DVT GB surgery Plan: D/C IV dilt. AB Increase metoprolol 150/day and titrate OOB to chair/amb. as víctor. IR evaluation of PleurEx As per Oncology, Pulmonary, ID and Renal Replace K+ Echocardiogram Will follow.
--- NOTE | 2018-05-24 11:00 | CP.PCM.PN ---
Subjective - Date & Time of Evaluation Date of Evaluation: 05/24/18 Time of Evaluation: 08:20 - Subjective Subjective: Patient is for catheter removal today, comfortable, afebrile. Objective - Vital Signs/Intake and Output Vital Signs (last 24 hours): Temp Pulse Resp BP Pulse Ox 97.3 F L 91 H 18 100/64 98 05/23/18 18:00 05/23/18 18:00 05/23/18 18:00 05/23/18 18:00 05/23/18 18:00 Intake and Output: 05/23/18 05/24/18 18:59 06:59 Intake Total 210 Balance 210 - Medications Medications: Current Medications Apixaban (Eliquis) 5 mg PO BID [facility]; Protocol Last Admin: 05/23/18 17:11 Dose: 5 mg Aspirin (Ecotrin) 81 mg PO DAILY [facility] Last Admin: 05/23/18 10:45 Dose: 81 mg Bacitracin (Bacitracin) 0 gm TOP DAILY [facility] Last Admin: 05/23/18 11:18 Dose: 1 applic Cholecalciferol (Vitamin D) 1,000 intlu PO DAILY [facility] Last Admin: 05/23/18 10:43 Dose: 1,000 intlu Doxycycline Hyclate (Doryx) 100 mg PO Q12 [facility]; Protocol Stop: 06/01/18 22:01 Guaifenesin/Dextromethorphan (Robitussin Dm) 5 ml PO Q4H PRN PRN Reason: Cough Hydrocortisone Sodium Succinate (Solu-Cortef) 40 mg IVP Q12 [facility] diltiaZEM IVPB 100mg in NS (Cardizem 100mg In Ns) 100 mls @ 5 mls/hr IV .Q20H [facility]N; Protocol PRN Reason: TITRATE PER MD ORDER Last Admin: 05/23/18 17:11 Dose: 5 mg/hr, 5 mls/hr Meropenem (Merrem Iv 1 Gm Premix) 1 gm in 50 mls @ 12.5 mls/hr IVPB Q8 [facility]; Protocol Last Admin: 05/23/18 15:25 Dose: 12.5 mls/hr Daptomycin 310 mg/ Sodium (Chloride) 100 mls @ 200 mls/hr IV Q24H [facility] Stop: 05/27/18 14:14 Last Admin: 05/23/18 16:43 Dose: 200 mls/hr Ipratropium [place] (Atrovent) 0.5 mg IH [id number] [facility] Last Admin: 05/23/18 19:56 Dose: 0.5 mg Loratadine (Claritin) 10 mg PO DAILY [facility] Last Admin: 05/23/18 10:43 Dose: 10 mg Magnesium Oxide (Mag-Ox) 400 mg PO DAILY [facility] Last Admin: 05/23/18 10:44 Dose: 400 mg Metolazone (Zaroxolyn) 2.5 mg PO MWF [facility] Last Admin: 05/21/18 11:20 Dose: 2.5 mg Metoprolol Succinate (Toprol Xl) 25 mg PO BRK [facility] Last Admin: 05/23/18 10:44 Dose: 25 mg Metoprolol Succinate (Toprol Xl) 100 mg PO BRK [facility] Last Admin: 05/23/18 10:44 Dose: 100 mg Montelukast Sodium (Singulair) 10 mg PO HS [facility] Last Admin: 05/22/18 22:08 Dose: 10 mg Budesonide [ Pulmicort Flexhaler] 180 Mcg (Home) 180 mcg IH DAILY [facility] Last Admin: 05/23/18 13:40 Dose: Not Given Pantoprazole Sodium (Protonix Ec Tab) 20 mg PO 0600 [facility] Last Admin: 05/23/18 05:31 Dose: 20 mg Potassium Chloride (Klor-Con 10) 30 meq PO BID [facility] Last Admin: 05/23/18 17:11 Dose: 30 meq Pyridoxine HCl (Vitamin B6 50 Mg Tab) 100 mg PO DAILY [facility] Last Admin: 05/23/18 10:44 Dose: 100 mg Zolpidem Tartrate (Ambien) 5 mg PO HS PRN; Protocol PRN Reason: Insomnia Last Admin: 05/22/18 22:09 Dose: 5 mg - Labs Labs: 05/23/18 06:35 05/23/18 06:35 APTT 33.8 Seconds (25.1-36.5) 05/20/18 12:32 - Constitutional Appears: Chronically Ill - Head Exam Head Exam: NORMAL INSPECTION - Respiratory Exam Respiratory Exam: Decreased Breath Sounds - Cardiovascular Exam Cardiovascular Exam: +S1, +S2 - GI/Abdominal Exam GI & Abdominal Exam: Soft. absent: Tenderness Assessment and Plan - Assessment and Plan (Free Text) Plan: Assessment Sepsis due to gram positive cocci bacteremia, consider due to catheter (pleurX), on top of right sided healthcare-associated pneumonia stage 3B ovarian cancer with metastases CAD small cell lung cancer rheumatoid arthritis chronic CHF chronic right sided pleural effusion S/P pleurX placement S/P nephrectomy Plan continue Daptomycin pending identification and sensitivities of the gram positive cocci in the blood; follow up repeat blood cx and 2D echo results continue Doxycycline and Merrem day 2 for 4-7 days of therapy will monitor clinically for cath removal today
--- NOTE | 2018-05-24 11:11 | PN ---
PULMONARY PROGRESS NOTE DATE: 05/24/2018 REFERRING PHYSICIAN: Dr. Zafar SUBJECTIVE: Patient is in armchair in room, no overnight events reported. No headache, rhinitis, cough, shortness of breath, chest pain, abdominal pain, nausea, vomiting, diarrhea, leg pain, leg swelling reported. OBJECTIVE: GENERAL: No acute distress. VITAL SIGNS: Blood pressure 96/67, heart rate 94, temperature 97.4, and oxygen saturation 96% on room air. HEENT: Moist mucus membranes. NECK: Supple. No JVD. LUNGS: Decreased breath sounds in the right lung. CARDIOVASCULAR: S1 and S2 audible. ABDOMEN: Soft, nontender. No organomegaly. No distention. EXTREMITIES: No bilateral lower extremity edema. Left leg skin breakdown. NEUROLOGIC: Awake, alert, verbal. Follow simple commands. LABORATORY DATA: Reviewed. Sodium 139, potassium 3.5, chloride 104, carbon dioxide 30, anion gap 8, BUN 35, creatinine 0.8. GFR greater than 60, random glucose 167, calcium 8.6. Echocardiogram pending reported. MEDICATIONS: Reviewed. Eliquis 5 mg p.o. twice a day, aspirin 81 mg p.o. daily, bacitracin topically affected area daily, vitamin D 1000 units daily, daptomycin 210 mg daily, doxycycline 100 mg every 12 hours, Robitussin DM 5 mL every 4 hours p.r.n. for cough, Solu-Cortef 40 mg every 12 hours, Atrovent 0.5 mg inhalation every 6 hours, loratadine 10 mg p.o. daily, magnesium oxide 400 mg p.o. daily, meropenem 1 g every 8 hours, metolazone 2.5 mg Thursday, Thursday, Thursday, metoprolol succinate 150 mg daily, Singulair 10 mg at bedtime, budesonide 180 mcg inhalation daily, Protonix 20 mg daily, potassium chloride 30 mEq twice a day, vitamin B6 100 mg daily, Ambien 5 mg p.o. at bedtime as needed. IMPRESSION AND PLAN: Bacteremia urinary tract infection, history of ovarian cancer, has recurrent pleural effusion, has a PleurX catheter which is malfunctioning, history of renal cell carcinoma with nephrectomy, atrial fibrillation with rapid ventricular response. Pulmonary point of view, patient is doing well. Awaiting to be evaluated by interventional radiologist. Echocardiogram done today, report pending. Case discussed with Dr. Lind. Plan is for patient to have PleurX catheter removed and fluid drained. Malfunctioning PleurX catheter may be source of bacteremia. Will decrease steroid. Gastric prophylaxis, anticoagulation therapy in progress. This patient was seen and examined with Dr. Love. Discussed assessment and plan as described above. Thank you for this consult, and we will follow with you. Casey Galvan APN Concepcion Love MD MTDMaureen
[2018-05-24] MEDS ORDERED: Metoprolol Succinate 25 mg XL Tab PO ONE (12:03)
[2018-05-24] MEDS: Potassium Chloride 10 mEq ER Tab PO SCH ×2 (12:04→18:48)
[2018-05-24] MEDS: Cholecalciferol 1,000 INTLU TAB PO SCH (12:04)
[2018-05-24] MEDS: BUDESONIDE 180 MCG IH SCH (12:04)
[2018-05-24] MEDS: Magnesium Oxide 400 mg Tab UD PO SCH (12:05)
[2018-05-24] MEDS: Bacitracin Ointment 30 GM TUBE TOP SCH (12:11)
[2018-05-24] MEDS: metOLazone 2.5 MG TAB PO SCH (12:18)
--- NOTE | 2018-05-24 12:53 | PN ---
DATE: 05/24/2018 SUBJECTIVE: The patient is seen sitting in chair. She is awake. She is alert. She is comfortable. She reports that her breathing is much better. She denies any chest pain. PHYSICAL EXAMINATION: GENERAL: An elderly lady sitting in chair. VITAL SIGNS: Blood pressure 97/67, heart rate 94, respiratory rate 18, temperature 97.4. HEENT: Normocephalic, atraumatic. Positive pallor. NECK: Supple, no JVD. LUNGS: Bilateral equal entry, bilateral equal expansion. No rales. Right-sided the PleurX catheter. CARDIAC: S1 and S2. Regular rate and rhythm. No murmur. No rub. ABDOMEN: Obese, soft, nontender, bowel sounds present. EXTREMITIES: No lower extremity edema. INTAKE AND OUTPUT: 690/not charted. LABORATORY DATA: WBC 5, hemoglobin 9.5, hematocrit 30.7, platelets 238. Sodium 139, potassium 3.5, chloride 104, CO2 of 30, BUN 35, creatinine 0.8, glucose 167, calcium 8.6. Urine culture, Escherichia coli. Blood culture, gram-positive cocci. DIAGNOSTIC DATA: The patient had an echocardiogram this morning. CURRENT MEDICATIONS: Ambien, Atrovent, bacitracin, Claritin, daptomycin ____ daily, doxycycline 100 every 12 hours, aspirin, Eliquis 5 mg b.i.d., K-Jacque 30 mEq b.i.d., mag oxide 400, Merrem 1 g every 8 hours, Protonix, guaifenesin, Singulair, Solu-Cortef, Toprol-XL 100, vitamin D, Cardizem discontinued. Zaroxolyn discontinued. ASSESSMENT AND PLAN: 1. Hypokalemia. 2. Hypomagnesemia. 3. History of small cell carcinoma of lung and stage III B ovarian cancer, carboplatin based chemotherapy. 4. History of right nephrectomy for renal cell carcinoma. 4. Atrial fibrillation with rapid ventricular response, new onset, off Cardizem drip now. 5. Chronic anemia. PLAN: 1. Monitor heart rate, continue beta-олег. 2. Off diuretic. 3. Replete potassium and magnesium. 4. Avoid nephrotoxins Deanna Ivy, MD
[2018-05-24] MEDS ORDERED: Lidocaine 2% Inj (20ml) ONE (16:34)
[2018-05-24] MEDS ORDERED: Midazolam 2 MG/2 ML VIAL ONE (17:01)
--- NOTE | 2018-05-24 17:51 | VASCULAR ---
PROCEDURE: Ultrasound guided right thoracentesis. CLINICAL HISTORY: Lung carcinoma. Malignant pleural effusion. Recent pleural catheter removal. Evaluate for infected pleural fluid. PHYSICIAN(S): Mario Yee MD. TECHNIQUE: The relative risks and indications of the procedure were explained to the patient and consent obtained. The patient was placed in a sitting position on the stretcher and sonography of the right chest performed. This revealed a small non loculated rightpleural effusion. A right posterolateral intercostal approach was selected and the area prepped and draped usual sterile fashion. 1% Xylocaine was used to anesthetize the skin and soft tissues. A 7 [place] thoracentesis catheter was trocared into the right pleural cavity and 300 ccof clear straw-colored fluid aspirated. Specimens were sent to the lab. IMPRESSION: 1. Ultrasound guided right thoracentesis. 300 cc of clear straw-colored fluid were aspirated. The appropriate labs were sent.
--- NOTE | 2018-05-24 17:52 | VASCULAR ---
PROCEDURE: Remove tunneled right pleural catheter CLINICAL HISTORY: Metastatic lung carcinoma with malignant pleural effusion. Previous tunneled pleural catheter placement. The catheter has quit draining. Needs to be removed PHYSICIAN(S): Mario Yee M.D. TECHNIQUE: The relative risks and indications for the procedure were explained to the patient and consent obtained. The patient was placed supine on the arteriogram table and the tunneled right pleural catheter prepped and draped usual sterile fashion. 1 percent xylocaine was used to anesthetize the skin and soft tissues. Conscious sedation monitoring were provided throughout the procedure by a nurse The entry site and tunnel were anesthetized 1 percent xylocaine. Blunt dissection was performed. The catheter was removed and a single interrupted suture placed. The patient tolerated the procedure well. FINDINGS: IMPRESSION: 1. Removal of the patient's tunneled right pleural catheter.
[2018-05-24 18:04] LABS: BODY FLUID TYPE PLEURAL
[2018-05-24 20:10] LABS: BF GROSS APPEARANCE CLEAR (CLEAR)
[2018-05-24 20:37] LABS: BODY FLUID RBC 550.6 /uL (0.0-0.0); BODY FLUID WBC 94.6 /uL (0.0-300.0)
[2018-05-24 21:31] LABS: BODY FLUID TOTAL COUNT 100 (0-0)
[2018-05-25] MEDS: Ipratropium 0.02% Inhal Soln (0.5 mg/2.5 ml) UD IH SCH ×4 (02:28→19:47)
[2018-05-25] MEDS: Pantoprazole 20 mg EC Tab PO SCH (05:39)
[2018-05-25] MEDS: Meropenem IV 1 gm in NS 1 GM/50 ML BAG IVPB SCH ×3 (05:39→21:49)
[2018-05-25 06:43] LABS: BLOOD UREA NITROGEN 37 mg/dL (7-21); CALCIUM 8.8 mg/dL (8.4-10.5); GFR NON-AFRICAN AMERICAN 53
[2018-05-25] MEDS ORDERED: Metoprolol Succinate 100 mg XL Tab PO SCH (08:00)
--- NOTE | 2018-05-25 08:05 | CP.PCM.PN ---
Subjective - Date & Time of Evaluation Date of Evaluation: 05/25/18 Time of Evaluation: 07:00 - Subjective Subjective: She feels better. No CP or SOB now. She feels anxious at times. S/P PleurEx removal and tap = 300 cc. V/S noted. AF ~ 80s, rapid at times PE: Lungs: clear, decreased BS rt base. Cor: irreg S1S2 Abd.: soft Ext.: no edema Neuro.: alert Labs noted: BMP OK, K+= 4.5 05/23 BC X2 NG at 24 hrs 05/20 BC X 1 + micrococcus Echo: See report. No veg. seen. Objective - Vital Signs/Intake and Output Vital Signs (last 24 hours): Temp Pulse Resp BP Pulse Ox 98.5 F 65 20 91/67 L 98 05/25/18 06:00 05/25/18 06:00 05/25/18 06:00 05/25/18 06:00 05/25/18 06:00 Intake and Output: 05/25/18 05/25/18 06:59 18:59 Intake Total 800 Output Total 3 Balance 797 - Medications Medications: Current Medications Apixaban (Eliquis) 5 mg PO BID [facility]; Protocol Last Admin: 05/24/18 18:48 Dose: 5 mg Aspirin (Ecotrin) 81 mg PO DAILY [facility] Last Admin: 05/24/18 12:05 Dose: 81 mg Bacitracin (Bacitracin) 0 gm TOP DAILY [facility] Last Admin: 05/24/18 12:11 Dose: 1 applic Cholecalciferol (Vitamin D) 1,000 intlu PO DAILY [facility] Last Admin: 05/24/18 12:04 Dose: 1,000 intlu Doxycycline Hyclate (Doryx) 100 mg PO Q12 [facility]; Protocol Stop: 06/01/18 22:01 Last Admin: 05/24/18 21:58 Dose: 100 mg Guaifenesin/Dextromethorphan (Robitussin Dm) 5 ml PO Q4H PRN PRN Reason: Cough Hydrocortisone Sodium Succinate (Solu-Cortef) 40 mg IVP DAILY [facility] Meropenem (Merrem Iv 1 Gm Premix) 1 gm in 50 mls @ 12.5 mls/hr IVPB Q8 [facility]; Protocol Last Admin: 05/25/18 05:39 Dose: 12.5 mls/hr Ceftriaxone Sodium (Rocephin 1 Gram Ivpb) 1 gm in 100 mls @ 100 mls/hr IVPB DAILY [facility]; Protocol Ipratropium [place] (Atrovent) 0.5 mg IH [id number] [facility] Last Admin: 05/25/18 02:28 Dose: 0.5 mg Loratadine (Claritin) 10 mg PO DAILY [facility] Last Admin: 05/24/18 12:04 Dose: 10 mg Magnesium Oxide (Mag-Ox) 400 mg PO DAILY [facility] Last Admin: 05/24/18 12:05 Dose: 400 mg Metoprolol Succinate (Toprol Xl) 25 mg PO DIN [facility] Metoprolol Succinate (Toprol Xl) 125 mg PO BRK [facility] Montelukast Sodium (Singulair) 10 mg PO HS [facility] Last Admin: 05/24/18 21:58 Dose: 10 mg Budesonide [ Pulmicort Flexhaler] 180 Mcg (Home) 180 mcg IH DAILY [facility] Last Admin: 05/24/18 12:04 Dose: Not Given Pantoprazole Sodium (Protonix Ec Tab) 20 mg PO 0600 [facility] Last Admin: 05/25/18 05:39 Dose: 20 mg Potassium Chloride (Klor-Con 10) 30 meq PO BID [facility] Last Admin: 05/24/18 18:48 Dose: 30 meq Pyridoxine HCl (Vitamin B6 50 Mg Tab) 100 mg PO DAILY [facility] Last Admin: 05/24/18 12:04 Dose: 100 mg Zolpidem Tartrate (Ambien) 5 mg PO HS PRN; Protocol PRN Reason: Insomnia Last Admin: 05/24/18 21:58 Dose: 5 mg - Labs Labs: 05/23/18 06:35 05/25/18 05:57 APTT 33.8 Seconds (25.1-36.5) 05/20/18 12:32 Assessment and Plan - Assessment and Plan (Free Text) Assessment: Dyspnea and Palpitations AF with RVR Chronic pleural effusion with non-functioning PleurEx/ BC X1 + GPC Pneumonia Squamous cell Lung cancer Ovarian cancer with mets Remote RCC with nephrectomy CAD/PCI PAD/IC HBP RA CVD AAA DVT GB surgery Plan: AB Continue metoprolol 150/day and titrate OOB to chair/amb. as víctor. Monitor cultures. As per Oncology, Pulmonary, ID and Renal Will follow.
--- NOTE | 2018-05-25 08:46 | CARD ---
APPROVED REPORT Date of service: 05/24/2018 EXAM: Two-dimensional and M-mode echocardiogram with Doppler and color Doppler. Other Information Quality : AverageRhythm : INDICATION Atrial Fibrillation , +BC, R/O SBE 2D DIMENSIONS Left Atrium (2D)4.2 (1.6-4.0cm)IVSd1.3 (0.7-1.1cm) LVDd4.4 (3.9-5.9cm)PWd1.1 (0.7-1.1cm) M-Mode DIMENSIONS Aortic Root2.90 (2.2-3.7cm)Aortic Cusp Exc.1.50 (1.5-2.0cm) Aortic Valve AoV Peak Fzfrcbva332.0cm/Yamilet Peak GR.6mmHg Mitral Valve E/A ratio0.0 TDI E/Lateral E'0.0E/Medial E'0.0 Pulmonary Valve PV Peak Aqncqkyt46.3cm/sPV Peak Grad.1mmHg Tricuspid Valve TR Peak [id number]/sRAP [id number] Peak Gr.39mmHg [id number] LEFT VENTRICLE The left ventricle is normal size. There is normal left ventricular wall thickness. Left ventricle systolic function is mildly impaired. The Ejection Fraction is 45-50%. There is mild global hypokinesis. ATRIA The left atrium is mildly dilated. The right atrium size is normal. The interatrial septum is intact with no evidence for an atrial septal defect. AORTIC VALVE The aortic valve is mildly thickened but opens well. There is trace aortic regurgitation. MITRAL VALVE The mitral valve is normal in structure. Mitral regurgitation is moderate. TRICUSPID VALVE The tricuspid valve is normal in structure. There is mild tricuspid regurgitation. PULMONIC VALVE The pulmonic valve is not well visualized. There is trace pulmonic valvular regurgitation. GREAT VESSELS The aortic root is normal in size. PERICARDIAL EFFUSION Pleural effusion present There is no pericardial effusion. <Conclusion> The left ventricle is normal size. There is normal left ventricular wall thickness. Left ventricle systolic function is mildly impaired. The Ejection Fraction is 45-50%. There is mild global hypokinesis. The aortic valve is mildly thickened but opens well. Aortic sclerosis vs. mild . Mitral regurgitation is moderate. There is mild tricuspid regurgitation. No vegetation seen.
[2018-05-25] MEDS: Metoprolol Succinate 100 mg XL Tab PO SCH (09:25)
[2018-05-25] MEDS ORDERED: cefTRIAXone 1 gm 1 GM/100 ML BAG IVPB SCH (10:00)
--- NOTE | 2018-05-25 10:05 | CP.PCM.PN ---
Subjective - Date & Time of Evaluation Date of Evaluation: 05/25/18 Time of Evaluation: 09:05 - Subjective Subjective: Afebrile, still feels weak but a little better today, PleurX catheter removed yesterday. Objective - Vital Signs/Intake and Output Vital Signs (last 24 hours): Temp Pulse Resp BP Pulse Ox 97.4 F L 105 H 18 96/67 L 96 05/24/18 06:00 05/24/18 07:44 05/24/18 06:00 05/24/18 06:00 05/24/18 00:01 Intake and Output: 05/24/18 05/24/18 06:59 18:59 Intake Total 480 Balance 480 - Medications Medications: Current Medications Apixaban (Eliquis) 5 mg PO BID [facility]; Protocol Last Admin: 05/23/18 17:11 Dose: 5 mg Aspirin (Ecotrin) 81 mg PO DAILY [facility] Last Admin: 05/23/18 10:45 Dose: 81 mg Bacitracin (Bacitracin) 0 gm TOP DAILY [facility] Last Admin: 05/23/18 11:18 Dose: 1 applic Cholecalciferol (Vitamin D) 1,000 intlu PO DAILY [facility] Last Admin: 05/23/18 10:43 Dose: 1,000 intlu Doxycycline Hyclate (Doryx) 100 mg PO Q12 [facility]; Protocol Stop: 06/01/18 22:01 Last Admin: 05/23/18 21:39 Dose: 100 mg Guaifenesin/Dextromethorphan (Robitussin Dm) 5 ml PO Q4H PRN PRN Reason: Cough Hydrocortisone Sodium Succinate (Solu-Cortef) 40 mg IVP Q12 [facility] Last Admin: 05/23/18 21:38 Dose: 40 mg Meropenem (Merrem Iv 1 Gm Premix) 1 gm in 50 mls @ 12.5 mls/hr IVPB Q8 [facility]; Protocol Last Admin: 05/24/18 05:11 Dose: 12.5 mls/hr Daptomycin 310 mg/ Sodium (Chloride) 100 mls @ 200 mls/hr IV Q24H [facility] Stop: 05/27/18 14:14 Last Admin: 05/23/18 16:43 Dose: 200 mls/hr Ipratropium [place] (Atrovent) 0.5 mg IH [id number] [facility] Last Admin: 05/24/18 07:42 Dose: 0.5 mg Loratadine (Claritin) 10 mg PO DAILY [facility] Last Admin: 05/23/18 10:43 Dose: 10 mg Magnesium Oxide (Mag-Ox) 400 mg PO DAILY [facility] Last Admin: 05/23/18 10:44 Dose: 400 mg Metolazone (Zaroxolyn) 2.5 mg PO MWF [facility] Last Admin: 05/21/18 11:20 Dose: 2.5 mg Metoprolol Succinate (Toprol Xl) 100 mg PO BRK [facility] Last Admin: 05/24/18 07:44 Dose: 100 mg Metoprolol Succinate (Toprol Xl) 50 mg PO BRK [facility] Montelukast Sodium (Singulair) 10 mg PO HS [facility] Last Admin: 05/23/18 21:39 Dose: 10 mg Budesonide [ Pulmicort Flexhaler] 180 Mcg (Home) 180 mcg IH DAILY [facility] Last Admin: 05/23/18 13:40 Dose: Not Given Pantoprazole Sodium (Protonix Ec Tab) 20 mg PO 0600 [facility] Last Admin: 05/24/18 05:13 Dose: 20 mg Potassium Chloride (Klor-Con 10) 30 meq PO BID [facility] Last Admin: 05/23/18 17:11 Dose: 30 meq Pyridoxine HCl (Vitamin B6 50 Mg Tab) 100 mg PO DAILY [facility] Last Admin: 05/23/18 10:44 Dose: 100 mg Zolpidem Tartrate (Ambien) 5 mg PO HS PRN; Protocol PRN Reason: Insomnia Last Admin: 05/23/18 22:02 Dose: 5 mg - Labs Labs: 05/23/18 06:35 05/24/18 06:00 APTT 33.8 Seconds (25.1-36.5) 05/20/18 12:32 - Constitutional Appears: Chronically Ill - Head Exam Head Exam: NORMAL INSPECTION - ENT Exam ENT Exam: Mucous Membranes Moist - Neck Exam Neck Exam: absent: Meningismus - Respiratory Exam Respiratory Exam: Decreased Breath Sounds Additional comments: right anterior chest wall port in place - Cardiovascular Exam Cardiovascular Exam: +S1, +S2 - GI/Abdominal Exam GI & Abdominal Exam: Soft. absent: Tenderness Assessment and Plan - Assessment and Plan (Free Text) Plan: Assessment Sepsis due to gram positive cocci bacteremia, consider due to right sided port-a-cath, growing Micrococcus on top of right sided healthcare-associated pneumonia; PleurX catheter has been removed from the left side stage 3B ovarian cancer with metastases CAD small cell lung cancer rheumatoid arthritis chronic CHF chronic right sided pleural effusion S/P pleurX placement S/P nephrectomy Plan can switch Daptomycin to Rocephin (but keep on Merrem for now then switch to Rocephin); repeat blood cx on 05/23 are negative and 2D echo does not show vegetations - may need to consider removing the port, and need at least 2 weeks of antibiotics continue Doxycycline and Merrem day 3 for 4-7 days of therapy will continue to monitor clinically follow up pleural fluid analysis
--- NOTE | 2018-05-25 10:08 | CP.PCM.PN ---
Subjective - Date & Time of Evaluation Date of Evaluation: 05/25/18 Time of Evaluation: 10:05 - Subjective Subjective: Faby Barnes DO, PGY-2: Hematology and Oncology Progress Note for Dr. Lind Patient was seen and examined at bedside. Patient reports limited activity secondary to palpitations and dyspnea. Heart rate was in the 140 earlier in the morning. Case was discussed with Dr. Turk who would like to titrate the Metoprolol alone for rate control of patient's atrial fibrillation. Patient denies fever, chills, nausea, vomiting, or diarrhea. Objective - Vital Signs/Intake and Output Vital Signs (last 24 hours): Temp Pulse Resp BP Pulse Ox 98.5 F 153 H 20 91/67 L 98 05/25/18 06:00 05/25/18 09:25 05/25/18 06:00 05/25/18 06:00 05/25/18 06:00 Intake and Output: 05/25/18 05/25/18 06:59 18:59 Intake Total 800 Output Total 3 Balance 797 - Medications Medications: Current Medications Apixaban (Eliquis) 5 mg PO BID [facility]; Protocol Last Admin: 05/24/18 18:48 Dose: 5 mg Aspirin (Ecotrin) 81 mg PO DAILY [facility] Last Admin: 05/24/18 12:05 Dose: 81 mg Bacitracin (Bacitracin) 0 gm TOP DAILY [facility] Last Admin: 05/24/18 12:11 Dose: 1 applic Cholecalciferol (Vitamin D) 1,000 intlu PO DAILY [facility] Last Admin: 05/24/18 12:04 Dose: 1,000 intlu Doxycycline Hyclate (Doryx) 100 mg PO Q12 [facility]; Protocol Stop: 06/01/18 22:01 Last Admin: 05/24/18 21:58 Dose: 100 mg Guaifenesin/Dextromethorphan (Robitussin Dm) 5 ml PO Q4H PRN PRN Reason: Cough Hydrocortisone Sodium Succinate (Solu-Cortef) 40 mg IVP DAILY [facility] Meropenem (Merrem Iv 1 Gm Premix) 1 gm in 50 mls @ 12.5 mls/hr IVPB Q8 [facility]; Protocol Last Admin: 05/25/18 05:39 Dose: 12.5 mls/hr Ceftriaxone Sodium (Rocephin 1 Gram Ivpb) 1 gm in 100 mls @ 100 mls/hr IVPB DAILY [facility]; Protocol Ipratropium [place] (Atrovent) 0.5 mg IH [id number] [facility] Last Admin: 05/25/18 08:00 Dose: 0.5 mg Loratadine (Claritin) 10 mg PO DAILY [facility] Last Admin: 05/24/18 12:04 Dose: 10 mg Magnesium Oxide (Mag-Ox) 400 mg PO DAILY [facility] Last Admin: 05/24/18 12:05 Dose: 400 mg Metoprolol Succinate (Toprol Xl) 25 mg PO DIN [facility] Metoprolol Succinate (Toprol Xl) 125 mg PO BRK [facility] Last Admin: 05/25/18 09:25 Dose: 125 mg Montelukast Sodium (Singulair) 10 mg PO HS [facility] Last Admin: 05/24/18 21:58 Dose: 10 mg Budesonide [ Pulmicort Flexhaler] 180 Mcg (Home) 180 mcg IH DAILY [facility] Last Admin: 05/24/18 12:04 Dose: Not Given Pantoprazole Sodium (Protonix Ec Tab) 20 mg PO 0600 [facility] Last Admin: 05/25/18 05:39 Dose: 20 mg Potassium Chloride (Klor-Con 10) 20 meq PO BID [facility] Pyridoxine HCl (Vitamin B6 50 Mg Tab) 100 mg PO DAILY [facility] Last Admin: 05/24/18 12:04 Dose: 100 mg Zolpidem Tartrate (Ambien) 5 mg PO HS PRN; Protocol PRN Reason: Insomnia Last Admin: 05/24/18 21:58 Dose: 5 mg - Labs Labs: 05/23/18 06:35 05/25/18 05:57 APTT 33.8 Seconds (25.1-36.5) 05/20/18 12:32 - Constitutional Appears: Other (tired) - Head Exam Head Exam: ATRAUMATIC, NORMOCEPHALIC - Eye Exam Eye Exam: EOMI, Normal appearance - ENT Exam ENT Exam: Mucous Membranes Moist, Normal Oropharynx - Neck Exam Neck Exam: Normal Inspection - Respiratory Exam Respiratory Exam: Clear to Ausculation Bilateral, NORMAL BREATHING PATTERN. absent: Accessory Muscle Use, Rales - Cardiovascular Exam Cardiovascular Exam: Tachycardia, Irregular Rhythm - GI/Abdominal Exam GI & Abdominal Exam: Soft, Normal Bowel Sounds - Extremities Exam Extremities Exam: absent: Calf Tenderness Additional comments: bruises noted in all four extremities - Neurological Exam Neurological Exam: Alert, Awake, Oriented x3 - Psychiatric Exam Psychiatric exam: Normal Affect, Normal Mood - Skin Skin Exam: Dry, Intact, Normal Color, Warm Assessment and Plan - Assessment and Plan (Free Text) Assessment: 78-year-old female with a past medical history significant for coronary artery disease, small cell lung cancer treated with carboplatinum and etoposide- currently not clincially active, 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 She was found to be in atrial fibrillation with RVR. CT scan of the chest demonstrated no change in right-sided consolidation and pleural effusion. Infectious disease was consulted for one set of the blood cultures growing gram positive cocci in clusters that has been identified as Micrococcus. Interventional radiology performed pleural tap and removed 300 mL of clear fluid and has removed Pleural catheter. Second set of blood cultures are negative and echocardiogram show no evidence of vegetation. Plan: 1) Severe Dyspnea in the setting of new-onset atrial fibrillation - Continue with Supplemental oxygen for target O2 saturation above 96% - Rule of ACS, troponins x 1 negative - BNP elevated to 13,000 - Chest X-ray reports increasing right lower lobe infiltrate; CT scan of the chest demonstrated no change in right-sided consolidation and pleural effusion. - Diltiazem 5 mg/hr drip discontinued - Metoprolol Succinate 150 mg PO daily - Continue Eliquis 5 mg BID - Cardiology consulted, Dr. Turk, appreciate recommendations 2) Possible catheter related blood infection - According to Clinical Practice Guidelines for the Diagnosis and Management of Intravascular Catheter-Related Infection: 2009 Update by the Infect[employer] Society of [place]: For long-term and short-term CRBSI due to less virulent microbes that are difficult to eradicate (e.g., Bacillus species, Micrococcus species, or Propionibacteria), catheters should generally be removed after blood culture contamination is ruled out on the basis of multiple positive culture results, with at least 1 blood culture sample drawn from a peripheral vein. Isolation of these microorganisms from a single blood culture set does not prove true bloodstream infection. Confirmation by multiple percutaneous blood culture results positive for the same organism is required before meaningful conclusions can be drawn as to the significance of the culture results. CRBSIs due to Micrococcus and Bacillus species are difficult to treat successfully unless the infected catheter is removed [202, 203]. - Given the above italized statement, I defer treatment and removal of the catheter to the infectious disease specialist. - one blood culture positive for gram positive cocci in clusters - Procalcitonin 0.43 - Echocardiogram shows no vegetations - ID states can switch Daptomycin to Rocephin (but keep on Merrem for now then switch to Rocephin); repeat blood cx on 05/23 are negative and 2D echo does not show vegetations - may need to consider removing the port, and need at least 2 weeks of antibiotics 3) Healthcare associated pneumonia, pending repeat blood cultures and identification of Gram positive cocci in sputum - Doxycycline 100 mg q12h - Meropenem 1 gram q8h 4) Small non-loculated pleural effusion - 300 ml of clear-straw colored fluid removed with pleural fluid analysis pending 5) Osteoarthritis - Percocet 5/325 q4h PRN 6) COPD - Singulair 10 mg HS - Atrovent q12h [facility] - Solucortef 20 mg q12h; taper per pulmonology 7) CAD - Aspirin 81 mg daily 8) PAD and new-onset atrial fibrillation - Eliquis 5 mg BID 9) DVT/GI prophylaxis - SCD/Protonix 40 mg PO daily Case reviewed and discussed with attending physician, Dr. Lind
--- NOTE | 2018-05-25 11:04 | RAD ---
Date of service: 05/25/2018 HISTORY: s/p rt thora COMPARISON: Portable chest 05/20/2018. TECHNIQUE: Frontal and lateral views of the chest been submitted. FINDINGS: LUNGS: Right MediPort unchanged in position. Limited patchy density remains in the right base with right perihilar consolidation or fibrosis again identified. PLEURA: Trace right pleural effusion and right apical pleural thickening or loculated if the effusion again evident. CARDIOVASCULAR: Calcific atherosclerotic changes are seen related to the thoracic aorta. Cardiac silhouette stable. No pulmonary vascular congestion. OSSEOUS STRUCTURES: No significant abnormalities. VISUALIZED UPPER ABDOMEN: Surgical clips right upper quadrant reiterated. OTHER FINDINGS: None. IMPRESSION: Persistent right basilar airspace disease as well as right upper lobe/suprahilar infiltrate or fibrosis. Limited right pleural effusion unchanged. No left-sided airspace disease identified.
--- NOTE | 2018-05-25 11:51 | PN ---
PULMONARY PROGRESS NOTE DATE: 05/25/2018 REFERRING PHYSICIAN: Dr. Zafar SUBJECTIVE: The patient is sitting in armchair at bedside. No overnight events reported. Reports she still has some shortness of breath with exertion and an occasional cough. PleurX catheter was removed yesterday and 300 mL of fluid was drained. No headache, rhinitis, chest pain, abdominal pain, nausea, vomiting, diarrhea, dysuria, leg pain or leg swelling reported. OBJECTIVE: GENERAL: No acute distress. VITAL SIGNS: Blood pressure 91/67, pulse 65, temperature 98.5 and oxygenation 98% on room air. HEENT: Moist mucus membranes. NECK: Supple. No JVD. LUNGS: Decreased breath sounds on the right lower lobe. CARDIOVASCULAR: S1 and S2 audible. ABDOMEN: Soft and nontender. No distention. No organomegaly. EXTREMITIES: No bilateral lower extremity edema. Left leg ecchymotic area noted. NEUROLOGIC: Awake, alert and verbal. Follows simple commands. LABORATORY DATA: Reviewed. Sodium 139, potassium 4.5, chloride 106, carbon dioxide 26, anion gap 10, BUN 37, creatinine 1. GFR 53, random glucose 83 and calcium 8.8. DIAGNOSTIC DATA: Chest x-ray report pending. MEDICATIONS: Reviewed. Eliquis 5 mg twice a day, aspirin 81 mg daily, bacitracin topically to affected area daily, vitamin D 1000 units daily, doxycycline 100 mg every 12 hours, Robitussin DM 5 mL every 4 hours as needed, Solu-Cortef 20 mg IV push twice a day, Atrovent 0.5 mg inhalation every 6 hours, Claritin 10 mg p.o. daily, magnesium oxide 400 mg p.o. daily, meropenem 1 g every 8 hours, metoprolol succinate 125 mg in the morning and 25 mg at dinner, Singulair 10 mg at dinner, Pulmicort Flexhaler 180 mcg inhaler daily, Protonix 20 mg daily, potassium chloride 20 mEq twice a day, vitamin B6 100 mg daily, Ambien 5 mg at bedtime p.r.n. IMPRESSION AND PLAN: Bacteremia urinary tract infection, history of ovarian cancer, has recurrent pleural effusion, bacteremia may be caused from malfunctioning PleurX catheter, history of renal cell carcinoma with nephrectomy, atrial fibrillation and rapid ventricular response. Pulmonary point of view, the patient is doing well, continue inhaled bronchodilators, gastric prophylaxis, anticoagulation therapy, awaiting pathology from fluid drained from pleural effusion. This patient was seen and examined with Dr. Love. Discussed assessment and plan as described above. Thank you for this consult, and we will follow with you. Casey Galvan APN Concepcion Love MD [facility]
[2018-05-25] MEDS: Magnesium Oxide 400 mg Tab UD PO SCH (11:57)
[2018-05-25] MEDS: Cholecalciferol 1,000 INTLU TAB PO SCH (11:57)
[2018-05-25] MEDS: Potassium Chloride 10 mEq ER Tab PO SCH ×2 (11:58→17:36)
[2018-05-25] MEDS: Bacitracin Ointment 30 GM TUBE TOP SCH (12:10)
[2018-05-25] MEDS: BUDESONIDE 180 MCG IH SCH (12:10)
[2018-05-25] MEDS: diltiaZEM IVPB 100mg in NS 100 ML IV PRN (13:33)
[2018-05-25] MEDS: Metoprolol Succinate 25 mg XL Tab PO SCH (17:36)
--- NOTE | 2018-05-25 19:01 | PN ---
DATE: 05/25/2018 SUBJECTIVE: The patient is currently seen sitting in a chair. She is doing relatively well. She still continues to complain of palpitations and shortness of breath from her atrial fibrillation. She remains on IV Cardizem. Her BUN and creatinine have fallen close to baseline levels. She does remain on low-dose steroid therapy. Diuretics have been discontinued. MEDICATIONS: Medication list reviewed. The patient is on Pulmicort, Ambien, Atrovent, bacitracin, IV diltiazem, Claritin, doxycycline, Ecotrin, Eliquis, K-Tab, magnesium oxide, meropenem, Protonix, Robitussin, Singulair, Solu-Cortef, Toprol, vitamin B6, and vitamin D. OBJECTIVE: INTAKE/OUTPUT: Intake is 813, output is not charted. Last weight is 113 pounds and 12 ounces. VITAL SIGNS: Blood pressure is 125/68, pulse is 71, with a temperature of 98.7, respiratory rate of 19. HEENT: Exam shows her to be normocephalic, atraumatic. Conjunctivae remain pale. Sclerae nonicteric. NECK: Supple. No neck vein distention. CHEST: Decreased breath sounds at the right base, right pleural tube. She has a port in her right chest wall. The left lung is clear. CARDIOVASCULAR: Shows an irregular S1, S2 with no audible murmurs, rubs, or gallops. ABDOMEN: Soft. Nondistended. Bowel sounds normal. No rebound, guarding, or masses. EXTREMITIES: Show no lower extremity cyanosis, clubbing, or edema. LABORATORY DATA AND IMAGING STUDIES: CBC: White blood cell count from 05/23/2018 was 5.8 with a hemoglobin of 9.5, and a platelet count of 238,000. Chemistries from today show normal electrolytes. Potassium is up to 4.5 from 3.5. CO2 level is 27, with a chloride of 106, sodium 139. BUN is down from a high of 46 down to 37. Her baseline creatinine is less than 20. Creatinine is down from 1.2 to 1, her baseline creatinine is less than 1. Calcium is 8.8. Last phosphorus was 2.6, with a magnesium level of 1.9. Microbiology: Urine cultures are positive for Aerococcus viridans and E-coli. Blood cultures are positive for micrococcus. ASSESSMENT: 1. Mild elevation of BUN with a creatinine which is falling back to baseline levels. This is likely secondary to previous use of diuretics and steroids which are being tapered. 2. 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 The patient is on carboplatin and etoposide-based chemotherapy regimen. 3. Status post right nephrectomy for renal cell carcinoma. She has a solitary functioning left kidney. 4. History of atrial fibrillation with rapid ventricular response. Heart rate is improved with the use of intravenous diltiazem and beta-олег therapy. Heart rate is currently 71 beats per minute. 5. History of anemia, likely secondary to ongoing malignancy. PLAN: 1. Continue to monitor the patient on telemetry. The patient remains on IV diltiazem as per Dr. Turk. 2. Okay from my standpoint for the patient to remain off diuretic therapy. 3. Further evaluation from an oncology standpoint by Dr. Lind and Dr. Zafar. 4. Continue to monitor labs closely. Her potassium level is now normal on potassium supplements. Linden Hdez MD
[2018-05-26] MEDS: Ipratropium 0.02% Inhal Soln (0.5 mg/2.5 ml) UD IH SCH ×4 (01:07→20:28)
[2018-05-26] MEDS: Pantoprazole 20 mg EC Tab PO SCH (05:35)
[2018-05-26] MEDS: Meropenem IV 1 gm in NS 1 GM/50 ML BAG IVPB SCH ×3 (05:35→22:05)
[2018-05-26 07:07] LABS: EOS # 0.1 (0.0-0.7); EOS % 0.9 % (1.5-5.0); GRAN # 6.16 (1.4-6.5); GRAN % 81.3 % (50.0-68.0); HEMOGLOBIN 10.7 g/dL (12.0-16.0); LYMPH % 12.9 % (22.0-35.0); MEAN CELL VOLUME 108.6 fl (80.0-105.0); MEAN CORPUSCULAR HGB CONC 30.4 g/dl (31.0-37.0); MEAN PLATELET VOLUME 9.7 fl (7.0-11.0); MONO # 0.4 (0.1-0.6); MONO % 4.9 % (1.0-6.0); RBC 3.24 10^6/uL (3.5-6.1); RED CELL DISTRIBUTION WIDTH 18.4 % (11.5-14.5); WHITE BLOOD COUNT 7.6 10^3/uL (4.5-11.0)
[2018-05-26 07:29] LABS: ALB/GLOB RATIO 1.1 (1.1-1.8); ALBUMIN 2.8 g/dL (3.0-4.8); ALT/SGPT 41 U/L (7-56); AST/SGOT 29 U/L (14-36); BLOOD UREA NITROGEN 41 mg/dL (7-21); CALCIUM 8.8 mg/dL (8.4-10.5); GFR NON-AFRICAN AMERICAN > 60
[2018-05-26] MEDS: diltiaZEM IVPB 100mg in NS 100 ML IV PRN (08:35)
--- NOTE | 2018-05-26 09:55 | CP.PCM.PN ---
Subjective - Date & Time of Evaluation Date of Evaluation: 05/26/18 Time of Evaluation: 09:54 - Subjective Subjective: Faby Barnes DO, PGY-2: Hematology and Oncology Progress Note for Dr. Lind Patient was seen and examined at bedside. She reports having no fever, chills, increase in urinary frequency or dysuria. She reports dyspnea with minimal exe rtion. Case was discussed with cardiology, Dr. Alaniz and Infectious Disease, Dr. Sandoval. Objective - Vital Signs/Intake and Output Vital Signs (last 24 hours): Temp Pulse Resp BP Pulse Ox 98.7 F 79 20 104/66 98 05/26/18 05:39 05/26/18 09:21 05/26/18 05:39 05/26/18 09:21 05/26/18 09:21 Intake and Output: 05/26/18 05/26/18 06:59 18:59 Intake Total 360 160 Balance 360 160 - Medications Medications: Current Medications Apixaban (Eliquis) 5 mg PO BID [facility]; Protocol Last Admin: 05/25/18 17:35 Dose: 5 mg Aspirin (Ecotrin) 81 mg PO DAILY [facility] Last Admin: 05/25/18 11:58 Dose: 81 mg Bacitracin (Bacitracin) 0 gm TOP DAILY [facility] Last Admin: 05/25/18 12:10 Dose: 1 applic Cholecalciferol (Vitamin D) 1,000 intlu PO DAILY [facility] Last Admin: 05/25/18 11:57 Dose: 1,000 intlu Diltiazem HCl (Cardizem) 30 mg PO QID [facility] Doxycycline Hyclate (Doryx) 100 mg PO Q12 [facility]; Protocol Stop: 06/01/18 22:01 Last Admin: 05/25/18 21:50 Dose: 100 mg Guaifenesin/Dextromethorphan (Robitussin Dm) 5 ml PO Q4H PRN PRN Reason: Cough Hydrocortisone Sodium Succinate (Solu-Cortef) 20 mg IVP BID [facility] Last Admin: 05/25/18 17:36 Dose: 20 mg Meropenem (Merrem Iv 1 Gm Premix) 1 gm in 50 mls @ 12.5 mls/hr IVPB Q8 [facility]; Protocol Last Admin: 05/26/18 05:35 Dose: 12.5 mls/hr Ipratropium [place] (Atrovent) 0.5 mg IH [id number] [facility] Last Admin: 05/26/18 07:23 Dose: 0.5 mg Loratadine (Claritin) 10 mg PO DAILY [facility] Last Admin: 05/25/18 11:58 Dose: 10 mg Magnesium Oxide (Mag-Ox) 400 mg PO DAILY [facility] Last Admin: 05/25/18 11:57 Dose: 400 mg Metoprolol Succinate (Toprol Xl) 25 mg PO DIN [facility] Last Admin: 05/25/18 17:36 Dose: 25 mg Metoprolol Succinate (Toprol Xl) 125 mg PO BRK [facility] Last Admin: 05/25/18 09:25 Dose: 125 mg Montelukast Sodium (Singulair) 10 mg PO HS [facility] Last Admin: 05/25/18 21:50 Dose: 10 mg Budesonide [ Pulmicort Flexhaler] 180 Mcg (Home) 180 mcg IH DAILY [facility] Last Admin: 05/25/18 12:10 Dose: Not Given Pantoprazole Sodium (Protonix Ec Tab) 20 mg PO 0600 [facility] Last Admin: 05/26/18 05:35 Dose: 20 mg Potassium Chloride (Klor-Con 10) 20 meq PO BID [facility] Last Admin: 05/25/18 17:36 Dose: 20 meq Pyridoxine HCl (Vitamin B6 50 Mg Tab) 100 mg PO DAILY [facility] Last Admin: 05/25/18 11:58 Dose: 100 mg Zolpidem Tartrate (Ambien) 5 mg PO HS PRN; Protocol PRN Reason: Insomnia Last Admin: 05/25/18 21:50 Dose: 5 mg - Labs Labs: 05/26/18 06:45 05/26/18 06:45 APTT 33.8 Seconds (25.1-36.5) 05/20/18 12:32 - Constitutional Appears: Well, Non-toxic - Head Exam Head Exam: ATRAUMATIC, NORMOCEPHALIC - Eye Exam Eye Exam: EOMI, Normal appearance - ENT Exam ENT Exam: Mucous Membranes Moist - Neck Exam Neck Exam: Normal Inspection - Respiratory Exam Respiratory Exam: Clear to Ausculation Bilateral, NORMAL BREATHING PATTERN. absent: Accessory Muscle Use - Cardiovascular Exam Cardiovascular Exam: RRR, +S1, +S2 - GI/Abdominal Exam GI & Abdominal Exam: Soft, Normal Bowel Sounds - Extremities Exam Extremities Exam: Normal Inspection. 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 She was found to be in atrial fibrillation with RVR. CT scan of the chest demonstrated no change in right-sided consolidation and pleural effusion. Infectious disease was consulted for one set of the blood cultures growing gram positive cocci in clusters that has been identified as Micrococcus. Interventional radiology performed pleural tap and removed 300 mL of clear fluid and have removed Pleural catheter. Second set of blood cultures are negative and echocardiogram show no evidence of vegetation. Cardiology has started PO diltiazem. ID recommends to continue Merropenem and Doxycycline for 4-7 days (today is day 4) and then 10 more days of Rocephin. In that case, the patient can be discharged tomorrow once we have titrated her PO diltiazem given that we can arrange for outpatient Rocephin. Plan: 1) Severe Dyspnea in the setting of new-onset atrial fibrillation - Continue with Supplemental oxygen for target O2 saturation above 96% - Rule of ACS, troponins x 1 negative - BNP elevated to 13,000 - Chest X-ray reports increasing right lower lobe infiltrate; CT scan of the chest demonstrated no change in right-sided consolidation and pleural effusion. - Diltiazem 30 mg QID - Metoprolol Succinate 150 mg PO daily - Continue Eliquis 5 mg BID - Cardiology consulted, Dr. Turk, appreciate recommendations 2) Possible catheter related blood infection and/or healthcare associated pneumonia - According to Clinical Practice Guidelines for the Diagnosis and Management of Intravascular Catheter-Related Infection: 2009 Update by the Infectious Diseases Society of [place]: For long-term and short-term CRBSI due to less virulent microbes that are difficult to eradicate (e.g., Bacillus species, Micrococcus species, or Propionibacteria), catheters should generally be removed after blood culture contamination is ruled out on the basis of multiple positive culture results, with at least 1 blood culture sample drawn from a peripheral vein. Isolation of these microorganisms from a single blood culture set does not prove true bloodstream infection. Confirmation by multiple percutaneous blood culture results positive for the same organism is required before meaningful conclusions can be drawn as to the significance of the culture results. CRBSIs due to Micrococcus and Bacillus species are difficult to treat successfully unless the infected catheter is removed [202, 203]. - Given the above italicized statement, I defer treatment and removal of the catheter to the infectious disease specialist. - one blood culture positive for Micrococcus species - Procalcitonin 0.43 - Echocardiogram shows no vegetations - ID recommends to continue Merropenem and Doxycycline for 4-7 days and then 10 more days of Rocephin along with repeat blood cultures at the completion of the course of Rocephin. 3) Healthcare associated pneumonia - Doxycycline 100 mg q12h - Meropenem 1 gram q8h 4) Small non-loculated pleural effusion - 300 ml of clear-straw colored fluid removed with pleural fluid analysis pending 5) Osteoarthritis - Percocet 5/325 q4h PRN 6) COPD - Singulair 10 mg HS - Atrovent q12h [facility] - Solucortef 20 mg q12h; taper per pulmonology 7) CAD - Aspirin 81 mg daily 8) PAD and new-onset atrial fibrillation - Eliquis 5 mg BID 9) DVT/GI prophylaxis - SCD/Protonix 40 mg PO daily Case reviewed and discussed with attending physician, Dr. Lind
[2018-05-26] MEDS: Cholecalciferol 1,000 INTLU TAB PO SCH (10:46)
[2018-05-26] MEDS: Magnesium Oxide 400 mg Tab UD PO SCH (10:46)
[2018-05-26] MEDS: Metoprolol Succinate 100 mg XL Tab PO SCH (10:46)
[2018-05-26] MEDS: Potassium Chloride 10 mEq ER Tab PO SCH ×2 (10:46→18:02)
[2018-05-26] MEDS: Bacitracin Ointment 30 GM TUBE TOP SCH (10:49)
[2018-05-26] MEDS: BUDESONIDE 180 MCG IH SCH (10:50)
--- NOTE | 2018-05-26 11:47 | PN ---
DATE: 05/26/2018 SUBJECTIVE: The patient is seen lying in bed on telemetry. She is currently comfortable. She remains in atrial fibrillation with a controlled rate at this time. She remains on low-dose intravenous diltiazem. She denies any chest pain or dyspnea. Her other medications include Atrovent, Pulmicort inhaler, doxycycline, Ecotrin, Eliquis 5 mg twice a day, potassium, meropenem, Protonix, Singulair, Solu-Cortef, Toprol-XL 150 mg daily. OBJECTIVE: GENERAL: She is an elderly woman who appears comfortable at rest. VITAL SIGNS: Her blood pressure is 102/60 with a pulse of 80 in atrial fibrillation, respirations are 14. She is afebrile. HEENT AND NECK: No JVD. CHEST: Diminished breath sounds at the bases. HEART: Irregularly irregular rhythm with systolic murmur in left sternal border. ABDOMEN: Soft, nontender with normoactive bowel sounds. EXTREMITIES: No edema. LABORATORY DATA: Potassium 4.9, BUN and creatinine are 41 and 0.9. White count is 7.6, hemoglobin and hematocrit are 10.7 and 35.2 with a platelet count of 260,000. IMPRESSION: 1. Atrial fibrillation, now with controlled ventricular rate. 2. Chronic pleural effusion status post removal of nonfunctioning PleurX catheter. 3. Metastatic ovarian cancer. 4. Squamous cell lung carcinoma. 5. Remote coronary artery disease status post percutaneous coronary intervention. Rest of problems as noted. RECOMMENDATIONS: Her current medications will be continued for now. Low-dose oral diltiazem will be added in addition to her metoprolol, and IV diltiazem will be discontinued. Oral Eliquis therapy should continue at this time as well. Her overall prognosis is limited and comfort care is most reasonable at this time. We will continue to follow and make further recommendations as appropriate. Jonel Calles MD
--- NOTE | 2018-05-26 11:55 | PN ---
PULMONARY PROGRESS NOTE DATE: 05/26/2018 SUBJECTIVE: The patient is sitting up in bed with physical therapy present. No overnight events reported. The patient reports feeling well. Denies cough and shortness of breath. No headache, rhinitis, chest pain, abdominal pain, nausea, vomiting, diarrhea, dysuria, leg pain or leg swelling reported. The patient does report feeling nervous about going to physical therapy, concerned that she may become short of breath with ambulation. OBJECTIVE: GENERAL: No acute distress. VITAL SIGNS: Blood pressure 104/66, pulse rate 79, oxygen saturation 99% on 3 liters and temperature 98.7. HEENT: Moist mucus membranes. NECK: Supple. No JVD. LUNGS: Fair airflow on the right, clear in the left. CARDIOVASCULAR: S1 and S2 audible. ABDOMEN: Soft and nontender. No distention. No organomegaly. EXTREMITIES: No bilateral lower extremity edema. Ecchymotic areas to left leg. NEUROLOGIC: Awake, alert and verbal. Follows simple commands. MEDICATIONS: Reviewed. Eliquis 5 mg twice a day, aspirin 81 mg daily, bacitracin topically to affected area, vitamin D 1000 units daily, Cardizem 30 mg four times a day, doxycycline 100 mg every 12 hours, Robitussin DM 5 mL every 4 hours as p.r.n., Solu-Cortef 20 mg IV twice a day, Atrovent 0.5 mg every 6 hours, Claritin 10 mg p.o. daily, magnesium oxide 400 mg p.o. daily, meropenem 1 g every 8 hours, metoprolol 125 mg in the morning and 25 mg at dinner, Singulair 10 mg at bedtime, Protonix 20 mg daily, potassium chloride 20 mEq twice a day, vitamin B6 100 mg daily and Ambien 5 mg p.r.n. at bedtime. LABORATORY DATA: Reviewed. WBC 7.6, RBC 3.25, hemoglobin 10.5, hematocrit 35.2, and platelets 260. Sodium 137, potassium 4.9, chloride 108, carbon dioxide 27, anion gap 7, BUN 41, creatinine 0.9, GFR greater than 60, random glucose 78, calcium 8.8, phosphorus 3.2, magnesium 1.6, total bilirubin 0.6, AST 29, ALT 41, alkaline phosphatase 74, total protein 5.4, albumin 2.8, globulin 2.6 and albumin-globulin ratio 1.1. Chest x-ray shows persistent right basilar airspace disease as well as right upper lobe suprahilar infiltrate or fibrosis, limited right pleural effusion unchanged, no left-sided airspace disease identified. IMPRESSION AND PLAN: Bacteremia, urinary tract infection, history of ovarian cancer, has recurrent pleural effusion, bacteremia may have been caused from malfunctioning PleurX catheter, history of renal cell carcinoma with nephrectomy, atrial fibrillation and rapid ventricular response. Pulmonary point of view, the patient is doing well, continue inhaled bronchodilators, gastric prophylaxis, continue antibiotic therapy, anticoagulation therapy, awaiting results of pathology from pleural fluid and continue physical therapy. This patient was seen and examined with Dr. Love. Discussed assessment and plan as described above. Thank you for this consult, and we will follow with you. Casey Galvan APN Concepcion Love MD [facility]
--- NOTE | 2018-05-26 17:13 | CP.PCM.PN ---
Subjective - Date & Time of Evaluation Date of Evaluation: 05/26/18 Time of Evaluation: 10:10 - Subjective Subjective: Afebrile, comfortable. Objective - Vital Signs/Intake and Output Vital Signs (last 24 hours): Temp Pulse Resp BP Pulse Ox 98.5 F 153 H 20 91/67 L 98 05/25/18 06:00 05/25/18 09:25 05/25/18 06:00 05/25/18 06:00 05/25/18 06:00 Intake and Output: 05/25/18 05/25/18 06:59 18:59 Intake Total 800 Output Total 3 Balance 797 - Medications Medications: Current Medications Apixaban (Eliquis) 5 mg PO BID [facility]; Protocol Last Admin: 05/24/18 18:48 Dose: 5 mg Aspirin (Ecotrin) 81 mg PO DAILY [facility] Last Admin: 05/24/18 12:05 Dose: 81 mg Bacitracin (Bacitracin) 0 gm TOP DAILY [facility] Last Admin: 05/24/18 12:11 Dose: 1 applic Cholecalciferol (Vitamin D) 1,000 intlu PO DAILY [facility] Last Admin: 05/24/18 12:04 Dose: 1,000 intlu Doxycycline Hyclate (Doryx) 100 mg PO Q12 [facility]; Protocol Stop: 06/01/18 22:01 Last Admin: 05/24/18 21:58 Dose: 100 mg Guaifenesin/Dextromethorphan (Robitussin Dm) 5 ml PO Q4H PRN PRN Reason: Cough Hydrocortisone Sodium Succinate (Solu-Cortef) 40 mg IVP DAILY [facility] Meropenem (Merrem Iv 1 Gm Premix) 1 gm in 50 mls @ 12.5 mls/hr IVPB Q8 [facility]; Protocol Last Admin: 05/25/18 05:39 Dose: 12.5 mls/hr Ceftriaxone Sodium (Rocephin 1 Gram Ivpb) 1 gm in 100 mls @ 100 mls/hr IVPB DAILY [facility]; Protocol Ipratropium [place] (Atrovent) 0.5 mg IH [id number] [facility] Last Admin: 05/25/18 08:00 Dose: 0.5 mg Loratadine (Claritin) 10 mg PO DAILY [facility] Last Admin: 05/24/18 12:04 Dose: 10 mg Magnesium Oxide (Mag-Ox) 400 mg PO DAILY [facility] Last Admin: 12/10/18 12:05 Dose: 400 mg Metoprolol Succinate (Toprol Xl) 25 mg PO DIN [facility] Metoprolol Succinate (Toprol Xl) 125 mg PO BRK [facility] Last Admin: 05/25/18 09:25 Dose: 125 mg Montelukast Sodium (Singulair) 10 mg PO HS [facility] Last Admin: 05/24/18 21:58 Dose: 10 mg Budesonide [ Pulmicort Flexhaler] 180 Mcg (Home) 180 mcg IH DAILY [facility] Last Admin: 05/24/18 12:04 Dose: Not Given Pantoprazole Sodium (Protonix Ec Tab) 20 mg PO 0600 [facility] Last Admin: 05/25/18 05:39 Dose: 20 mg Potassium Chloride (Klor-Con 10) 20 meq PO BID [facility] Pyridoxine HCl (Vitamin B6 50 Mg Tab) 100 mg PO DAILY [facility] Last Admin: 05/24/18 12:04 Dose: 100 mg Zolpidem Tartrate (Ambien) 5 mg PO HS PRN; Protocol PRN Reason: Insomnia Last Admin: 05/24/18 21:58 Dose: 5 mg - Labs Labs: 05/23/18 06:35 05/25/18 05:57 APTT 33.8 Seconds (25.1-36.5) 05/20/18 12:32 - Constitutional Appears: Chronically Ill - Head Exam Head Exam: NORMAL INSPECTION - Respiratory Exam Respiratory Exam: Decreased Breath Sounds Additional comments: right anterior chest wall port in place - Cardiovascular Exam Cardiovascular Exam: +S1, +S2 - GI/Abdominal Exam GI & Abdominal Exam: Soft. absent: Tenderness Assessment and Plan - Assessment and Plan (Free Text) Plan: Assessment Sepsis due to micrococcus bacteremia, consider due to right sided port-a-cath, growing Micrococcus on top of right sided healthcare-associated pneumonia; PleurX catheter has been removed from the left side stage 3B ovarian cancer with metastases CAD small cell lung cancer rheumatoid arthritis chronic CHF chronic right sided pleural effusion S/P pleurX placement S/P nephrectomy Plan continue Doxycycline and Merrem day 4 for 4-7 days of therapy - switch to Rocephin to complete the 2 weeks of therapy for the bacteremia and as discussed with Dr. Gamez, will keep port for now, and repeat blood cx are to be done after the 2 weeks of antibiotics are done will continue to monitor clinically pleural fluid cultures are negative
[2018-05-26] MEDS: Metoprolol Succinate 25 mg XL Tab PO SCH (17:58)
--- NOTE | 2018-05-26 18:32 | PN ---
DATE: 05/26/2018 SUBJECTIVE: The patient is seen lying in bed. She is awake. She is alert. She is comfortable. She complains of some cough. She complains of some shortness of breath. PHYSICAL EXAMINATION GENERAL: Elderly lady sitting in bed. VITAL SIGNS: Blood pressure 107/71, heart rate 76, respiratory rate 18, temperature 98.2. HEENT: Normocephalic, atraumatic, positive pallor. NECK: Supple. No JVD. LUNGS: Bilateral equal air entry, bilateral equal expansion. No rales, no rhonchi. CARDIAC: S1 and S2, regular rate and rhythm. No murmur, no rub. ABDOMEN: Soft, nondistended, nontender. Bowel sounds present. EXTREMITIES: No lower extremity edema. LABORATORY DATA: WBC 7.6, hemoglobin 10.7, hematocrit 35, platelets 260. Sodium 137, potassium 4.5, chloride 108, CO2 of 27, BUN 41, creatinine 0.9, glucose 78, calcium 8.8, phosphorus 3.2, magnesium 1.6, albumin 2.8. CURRENT MEDICATIONS: Ambien, Atrovent, bacitracin, Pulmicort, Cardizem 30 four times daily, Claritin 10, doxycycline 100 every 12 hours, Ecotrin 81, Eliquis 5 mg p.o. b.i.d., K-Jacuqe 20 mEq b.i.d., Toprol-XL 125 daily and 25 mg at p.m. ASSESSMENT: 1. New-onset atrial fibrillation with rapid ventricular rate. As per the nursing staff, the patient's heart rate still goes up to 150 with activity. 2. Mild prerenal azotemia. 3. Small cell carcinoma of the lung, stage III B ovarian cancer. 4. History of right nephrectomy for renal cell carcinoma. 5. Anemia. PLAN: 1. Increase Cardizem? 2. Discuss with Cardiology. 3. Stable from the neuro standpoint. 4. Avoid nephrotoxic. Deanna Ivy MD
[2018-05-27] MEDS: Ipratropium 0.02% Inhal Soln (0.5 mg/2.5 ml) UD IH SCH ×3 (01:24→13:11)
[2018-05-27] MEDS: Meropenem IV 1 gm in NS 1 GM/50 ML BAG IVPB SCH (06:09)
[2018-05-27] MEDS: Pantoprazole 20 mg EC Tab PO SCH (06:10)
[2018-05-27 06:23] VITALS: O2SAT 95
[2018-05-27 07:02] LABS: BASO # 0.01 K/mm3 (0.0-2.0); BASO % 0.1 % (0.0-3.0); EOS # 0.1 (0.0-0.7); EOS % 1.1 % (1.5-5.0); GRAN # 6.03 (1.4-6.5); GRAN % 79.5 % (50.0-68.0); LYMPH % 13.4 % (22.0-35.0); MEAN CELL VOLUME 108.4 fl (80.0-105.0); MEAN CORPUSCULAR HEMOGLOBIN 32.8 pg (25.0-35.0); MEAN CORPUSCULAR HGB CONC 30.3 g/dl (31.0-37.0); MONO # 0.5 (0.1-0.6); MONO % 5.9 % (1.0-6.0); RBC 3.35 10^6/uL (3.5-6.1); WHITE BLOOD COUNT 7.6 10^3/uL (4.5-11.0)
[2018-05-27 07:09] LABS: ALB/GLOB RATIO 1.1 (1.1-1.8); ALBUMIN 2.9 g/dL (3.0-4.8); ALT/SGPT 33 U/L (7-56); AST/SGOT 37 U/L (14-36); BLOOD UREA NITROGEN 41 mg/dL (7-21); GFR NON-AFRICAN AMERICAN > 60
--- NOTE | 2018-05-27 08:19 | CP.PCM.PN ---
Subjective - Date & Time of Evaluation Date of Evaluation: 05/27/18 Time of Evaluation: 07:00 - Subjective Subjective: She feels better. No CP or SOB now. The HR is better controlled now. V/S noted. AF ~ 80s (69 - 104) PE: Lungs: clear, decreased BS rt base. Cor: irreg S1S2 Abd.: soft Ext.: no edema Neuro.: alert Labs noted. Mg++= 1.5 05/23 BC X2 NG at [address] Fluid neg[address] for AFB 05/20 BC X 1 + micrococcus Echo: See report. No veg. seen. Objective - Vital Signs/Intake and Output Vital Signs (last 24 hours): Temp Pulse Resp BP Pulse Ox 97.8 F 76 20 99/60 L 95 05/27/18 06:00 05/27/18 06:00 05/27/18 06:00 05/27/18 06:00 05/27/18 06:00 Intake and Output: 05/27/18 05/27/18 06:59 18:59 Intake Total 300 Output Total 0 Balance 300 - Medications Medications: Current Medications Apixaban (Eliquis) 5 mg PO BID [facility]; Protocol Last Admin: 05/26/18 17:58 Dose: 5 mg Aspirin (Ecotrin) 81 mg PO DAILY [facility] Last Admin: 05/26/18 10:46 Dose: 81 mg Bacitracin (Bacitracin) 0 gm TOP DAILY [facility] Last Admin: 05/26/18 10:49 Dose: 1 applic Cholecalciferol (Vitamin D) 1,000 intlu PO DAILY [facility] Last Admin: 05/26/18 10:46 Dose: 1,000 intlu Diltiazem HCl (Cardizem) 30 mg PO QID [facility] Last Admin: 05/26/18 21:54 Dose: 30 mg Doxycycline Hyclate (Doryx) 100 mg PO Q12 [facility]; Protocol Stop: 06/01/18 22:01 Last Admin: 05/26/18 21:53 Dose: 100 mg Guaifenesin/Dextromethorphan (Robitussin Dm) 5 ml PO Q4H PRN PRN Reason: Cough Hydrocortisone Sodium Succinate (Solu-Cortef) 20 mg IVP BID [facility] Last Admin: 05/26/18 18:02 Dose: 20 mg Meropenem (Merrem Iv 1 Gm Premix) 1 gm in 50 mls @ 12.5 mls/hr IVPB Q8 [facility]; Protocol Last Admin: 05/27/18 06:09 Dose: 12.5 mls/hr Ipratropium [place] (Atrovent) 0.5 mg IH [id number] [facility] Last Admin: 05/27/18 07:20 Dose: 0.5 mg Loratadine (Claritin) 10 mg PO DAILY [facility] Last Admin: 05/26/18 10:46 Dose: 10 mg Magnesium Oxide (Mag-Ox) 400 mg PO DAILY [facility] Last Admin: 05/26/18 10:46 Dose: 400 mg Metoprolol Succinate (Toprol Xl) 25 mg PO DIN [facility] Last Admin: 05/26/18 17:58 Dose: 25 mg Metoprolol Succinate (Toprol Xl) 125 mg PO BRK [facility] Last Admin: 05/26/18 10:46 Dose: 125 mg Montelukast Sodium (Singulair) 10 mg PO HS [facility] Last Admin: 05/26/18 21:53 Dose: 10 mg Budesonide [ Pulmicort Flexhaler] 180 Mcg (Home) 180 mcg IH DAILY [facility] Last Admin: 05/26/18 10:50 Dose: Not Given Pantoprazole Sodium (Protonix Ec Tab) 20 mg PO 0600 [facility] Last Admin: 05/27/18 06:10 Dose: 20 mg Potassium Chloride (Klor-Con 10) 20 meq PO BID [facility] Last Admin: 05/26/18 18:02 Dose: 20 meq Pyridoxine HCl (Vitamin B6 50 Mg Tab) 100 mg PO DAILY [facility] Last Admin: 05/26/18 18:04 Dose: 100 mg Zolpidem Tartrate (Ambien) 5 mg PO HS PRN; Protocol PRN Reason: Insomnia Last Admin: 05/26/18 22:04 Dose: 5 mg - Labs Labs: 05/27/18 06:15 05/27/18 06:15 APTT 33.8 Seconds (25.1-36.5) 05/20/18 12:32 Assessment and Plan - Assessment and Plan (Free Text) Assessment: Dyspnea and Palpitations AF with RVR Chronic pleural effusion with non-functioning PleurEx/ BC X1 + GPC Pneumonia Squamous cell Lung cancer Ovarian cancer with mets Remote RCC with nephrectomy CAD/PCI PAD/IC HBP RA CVD AAA DVT GB surgery Plan: AB Continue metoprolol 150/day and and Cardizem 30 QID PO mag. OOB to chair/amb. as víctor. Monitor cultures. As per Oncology, Pulmonary, ID and Renal Will follow.
[2018-05-27] MEDS ORDERED: Magnesium Oxide 400 mg Tab UD PO SCH (08:43)
--- NOTE | 2018-05-27 08:49 | CP.PCM.DIS ---
Provider - Provider Date of Admission: 05/20/18 13:29 Attending physician: Luis Zafar MD Primary care physician: Cal Pandey MD Consults: 05/20/18 12:57 Physician Consult Routine Comment: Consulting Provider: Pro Turk Consulting Physician: Pro Turk Reason for Consult: worsening exertional dyspnea 05/20/18 13:00 Physician Consult Routine Comment: Consulting Provider: Concepcion Love Consulting Physician: Concepcion Love Reason for Consult: worsening dyspnea on exertion 05/20/18 14:48 Physician Consult Routine Comment: Consulting Provider: Deanna Ivy Consulting Physician: Deanna Ivy Reason for Consult: considering CTA of chest in a patient with one kidney 05/21/18 12:23 Radiology Consult Routine Comment: nonfunctioning pleurex catheter Consulting Provider: Mario Yee Consulting Physician: Mario Yee Reason for Consult: nonfunctioning pleurx catheter 05/21/18 12:59 Physician Consult Routine Comment: Consulting Provider: Mario Yee Consulting Physician: Mario Yee Reason for Consult: right pleural catheter not draining 05/22/18 11:41 Physician Consult Routine Comment: Consulting Provider: Damaso Lloyd Consulting Physician: Damaso Lloyd Reason for Consult: left ramírez wound; patient taking eliquis 05/22/18 14:18 Nursing Referral for Wound Care Routine Comment: Physician Instructions: Reason For Exam: left ramírez - 05/23/18 09:51 Consult [Physician Consult] Routine Comment: Consulting Provider: Reese Bradford Consulting Physician: Reese Bradford Reason for Consult: positive blood cultures Time Spent in preparation of Discharge (in minutes): 75 Hospital Course - Lab Results Lab Results: Micro Results 05/23/18 14:10 Blood Blood Culture - Preliminary NO GROWTH AFTER 3 DAYS 05/23/18 13:30 Blood Blood Culture - Preliminary NO GROWTH AFTER 3 DAYS 05/24/18 18:00 Pleural Fluid Anaerobic Culture - Final NO ANAEROBES ISOLATED. 05/24/18 18:00 Pleural Fluid Body Fluid Culture - Preliminary NO GROWTH AFTER 2 DAYS 05/24/18 18:00 Other: Please Indicate Mycobacterial Culture - Preliminary 05/20/18 12:32 Blood-Venous Blood Culture - Final NO GROWTH AFTER 5 DAYS 05/20/18 12:32 Blood-Venous Gram Stain - Final TEST NOT PERFORMED 05/23/18 14:30 Naris MRSA Culture (Admit) - Final MRSA NOT DETECTED 05/20/18 13:07 Blood-Venous S.aureus & Coag-Neg Staph PNA FISH - Final TEST NOT PERFORMED 05/20/18 13:07 Blood-Venous Blood Culture - Final Micrococcus Species 05/20/18 13:07 Blood-Venous Gram Stain - Final 05/20/18 23:25 Urine Urine Culture - Final Aerococcus Viridans Escherichia Coli Most Recent Lab Values WBC 7.6 10^3/uL (4.5-11.0) 05/27/18 06:15 RBC 3.35 10^6/uL (3.5-6.1) L 05/27/18 06:15 Hgb 11.0 g/dL (12.0-16.0) L 05/27/18 06:15 Hct 36.3 % (36.0-48.0) 05/27/18 06:15 MCV 108.4 fl (80.0-105.0) H 05/27/18 06:15 MCH 32.8 pg (25.0-35.0) 05/27/18 06:15 MCHC 30.3 g/dl (31.0-37.0) L 05/27/18 06:15 RDW 18.0 % (11.5-14.5) H 05/27/18 06:15 Plt Count 277 10^3/uL (120.0-450.0) 05/27/18 06:15 MPV 10.0 fl (7.0-11.0) 05/27/18 06:15 Gran % 79.5 % (50.0-68.0) H 05/27/18 06:15 Lymph % (Auto) 13.4 % (22.0-35.0) L 05/27/18 06:15 [place] % (Auto) 5.9 % (1.0-6.0) 05/27/18 06:15 Eos % (Auto) 1.1 % (1.5-5.0) L 05/27/18 06:15 Baso % (Auto) 0.1 % (0.0-3.0) 05/27/18 06:15 Gran # 6.03 (1.4-6.5) 05/27/18 06:15 Lymph # (Auto) 1.0 (1.2-3.4) L 05/27/18 06:15 [place] # (Auto) 0.5 (0.1-0.6) 05/27/18 06:15 Eos # (Auto) 0.1 (0.0-0.7) 05/27/18 06:15 Baso # (Auto) 0.01 K/mm3 (0.0-2.0) 05/27/18 06:15 Neutrophils % (Manual) 92 % (50.0-70.0) H 05/20/18 12:32 Lymphocytes % (Manual) 4 % (22.0-35.0) L 05/20/18 12:32 Monocytes % (Manual) 4 % (1.0-6.0) 05/20/18 12:32 Platelet Evaluation Normal (NORMAL) 05/20/18 12:32 APTT 33.8 Seconds (25.1-36.5) 05/20/18 12:32 D-Dimer, Quantitative 2894 ng/mlDDU (0-243) H 05/20/18 12:00 pCO2 33 mm/Hg (35-45) L 05/20/18 13:20 pO2 49 mm/Hg (30-55) 05/20/18 17:52 HCO3 21.4 mmol/L (21-28) 05/20/18 13:20 ABG pH 7.42 (7.35-7.45) 05/20/18 13:20 ABG Total CO2 22.4 mmol.L (22-28) 05/20/18 13:20 ABG O2 Saturation 98.0 % (95-98) 05/20/18 13:20 ABG O2 Content 14.8 ML/dl (15-23) L 05/20/18 13:20 ABG Base Excess -2.5 mmol/L (-2.0-3.0) L 05/20/18 13:20 ABG Hemoglobin 11.0 g/dL (11.7-17.4) L 05/20/18 13:20 ABG Carboxyhemoglobin 2.5 % (0.5-1.5) H 05/20/18 13:20 POC ABG HHb (Measured) 1.9 % (0-5) 05/20/18 13:20 ABG Methemoglobin 0.7 % (0.0-3.0) 05/20/18 13:20 ABG O2 Capacity 15.1 mL/dl (16-24) L 05/20/18 13:20 VBG pH 7.37 (7.32-7.43) 05/20/18 17:52 VBG pCO2 47.0 (40-60) 05/20/18 17:52 VBG HCO3 27.2 mmol/l (21-28) 05/20/18 17:52 VBG Total CO2 28.6 mmol.L (22-28) H 05/20/18 17:52 VBG O2 Sat (Calc) 85.8 % (40-65) H 05/20/18 17:52 VBG Base Excess 1.3 mmol/L (0.0-2.0) 05/20/18 17:52 VBG Potassium 3.2 mmol/L (3.6-5.2) L 05/20/18 17:52 Hgb O2 Saturation 94.9 % (95.0-98.0) L 05/20/18 13:20 Sodium 137.0 mmol/L (132-148) 05/20/18 17:52 Chloride 100.0 mmol/L (98-107) 05/20/18 17:52 Glucose 172 mg/dl (65-105) H 05/20/18 17:52 Lactate 1.9 mmol/L (0.7-2.1) 05/20/18 17:52 FiO2 21.0 % 05/20/18 17:52 Sodium 138 mmol/L (132-148) 05/27/18 06:15 Potassium 4.7 mmol/L (3.6-5.0) 05/27/18 06:15 Chloride 106 mmol/L (98-107) 05/27/18 06:15 Carbon Dioxide 27 mmol/L (21-33) 05/27/18 06:15 Anion Gap 9 (10-20) L 05/27/18 06:15 BUN 41 mg/dL (7-21) H 05/27/18 06:15 Creatinine 0.9 mg/dl (0.7-1.2) 05/27/18 06:15 Est GFR ( Amer) > 60 05/27/18 06:15 Est GFR (Non-Af Amer) > 60 05/27/18 06:15 Random Glucose 140 mg/dL (70-110) H 05/27/18 06:15 Calcium 9.0 mg/dL (8.4-10.5) 05/27/18 06:15 Phosphorus 3.2 mg/dL (2.5-4.5) 05/26/18 06:45 Magnesium 1.5 mg/dL (1.7-2.2) L 05/27/18 06:15 Total Bilirubin 0.5 mg/dL (0.2-1.3) 05/27/18 06:15 AST 37 U/L (14-36) H D 05/27/18 06:15 ALT 33 U/L (7-56) 05/27/18 06:15 Alkaline Phosphatase 74 U/L (38-126) 05/27/18 06:15 Total Creatine Kinase 21 U/L (35-230) L 05/23/18 14:10 Troponin I 0.04 ng/mL D 05/20/18 12:00 NT-Pro-B Natriuret Pep 96805 pg/mL (0-450) H 05/20/18 12:32 Total Protein 5.5 g/dL (5.8-8.3) L 05/27/18 06:15 Albumin 2.9 g/dL (3.0-4.8) L 05/27/18 06:15 Globulin 2.6 gm/dL 05/27/18 06:15 Albumin/Globulin Ratio 1.1 (1.1-1.8) 05/27/18 06:15 Triglycerides 171 mg/dL (35-160) H 05/21/18 07:45 Cholesterol 178 mg/dL (130-200) 05/21/18 07:45 LDL Cholesterol Direct 116 mg/dL (0-129) 05/21/18 07:45 HDL Cholesterol 48 mg/dL (29-60) 05/21/18 07:45 Procalcitonin 0.43 NG/ML (0.19-0.49) 05/21/18 12:00 TSH 3rd Generation 1.69 mIU/mL (0.46-4.68) 05/20/18 17:52 Venous Blood Potassium 3.2 mmol/L (3.6-5.2) L 05/20/18 17:52 Urine Color Yellow (YELLOW) 05/20/18 23:25 Urine Appearance Clear (CLEAR) 05/20/18 23:25 Urine pH 6.0 (4.7-8.0) 05/20/18 23:25 Ur Specific [place] 1.010 (1.005-1.035) 05/20/18 23:25 Urine Protein Negative mg/dL (<30 mg/dL) 05/20/18 23:25 Urine Glucose (UA) Negative mg/dL (NEGATIVE) 05/20/18 23:25 Urine Ketones Negative mg/dL (NEGATIVE) 05/20/18 23:25 Urine Blood Negative (NEGATIVE) 05/20/18 23: Urine Nitrate Negative (NEGATIVE) 05/20/18 23: Urine Bilirubin Negative (NEGATIVE) 05/20/18 23:25 Urine Urobilinogen 0.2 E.U./dL (<1 E.U./dL) 05/20/18 23:25 Ur Leukocyte Esterase Trace Bruno/uL (NEGATIVE) H 05/20/18 23:25 Urine RBC 0 - 2 /hpf (0-2) 05/20/18 23:25 Urine WBC 1 - 3 /hpf (0-6) 05/20/18 23:25 Ur Epithelial Cells 1 - 3 /hpf (0-5) 05/20/18 23:25 Urine Bacteria Small (NEG) 05/20/18 23:25 Fluid Source Pleural 05/24/18 18:00 Fluid Appearance Clear (CLEAR) 05/24/18 18:00 Fluid WBC 94.6 /uL (0.0-300.0) 05/24/18 18:00 Fluid RBC 550.6 /uL (0.0-0.0) H 05/24/18 18:00 Fluid Tot Cell Count 100 (0-0) H 05/24/18 18:00 Fluid Mononuclear Cell 92.0 % (0-0) H 05/24/18 18:00 Fl Polymorphonucl Cell 5.0 % (0-0) H 05/24/18 18:00 Fluid Comment Yellow 05/24/18 18:00 Pleural Glucose 84 mg/dL 05/24/18 18:00 - Hospital Course Hospital Course: 78-year-old female with a past medical history significant for coronary artery disease, small cell lung cancer treated with carboplatinum and etoposide- currently not clincially active, 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 She was found to be in atrial fibrillation with RVR. CT scan of the chest demonstrated no change in right-sided consolidation and pleural effusion. Infectious disease was consulted for one set of the blood cultures growing gram positive cocci in clusters that has been identified as Micrococcus and for healthcare associated pneumonia. The patient was treated with 4 days of Doxycycline and Merropenem for the HCAP while she will getting a total of two weeks treatment for the one blood culture that grew Micrococcus species. Second set of two blood cultures were negative and echocardiogram show no evidence of vegetation. Important to note the patient does have a right port-a cath. She will be arranged to receive IV Rocephin as an outpatient daily for the next 9-10 days to complete the full course. She is also being given a prescription for two sets of blood cultures from two separate peripheral sites (cleaned with chlorohexidine and standard technique). Interventional radiology performed a pleural tap and removed 300 mL of clear fluid and removed the Pleural catheter. Cardiology was consulted for the patient's atrial fibrillation with RVR which required IV dilitiazem and an increase in her Metoprolol dose. The patient was already on anticouagulation [facility] Eliquis for PAD, this was continued. The Metoprolol Succinate was titrated to 150 mg and PO diltiazem 30 mg QID. Physical therapy walked the patient as well The patient was able to walk 70 feet before developing shortness of breath requiring her to stop walking a slow normal pace. The patient was recommended to go to [facility] by physical therapy, but the patient refused such services. She was discharged with the below written instructions and recommendations. - Date & Time of H&P Date of H&P: 05/27/18 Time of H&P: 08:57 Discharge Exam - Head Exam Head Exam: ATRAUMATIC, NORMAL INSPECTION - Eye Exam Eye Exam: EOMI, Normal appearance - ENT Exam ENT Exam: Mucous Membranes Moist, Normal Oropharynx - Neck Exam Neck exam: Normal Inspection - Respiratory Exam Respiratory Exam: Clear to PA & Lateral, NORMAL BREATHING PATTERN, UNREMARKABLE. absent: Accessory Muscle Use - Cardiovascular Exam Cardiovascular Exam: RRR, +S1, +S2 - GI/Abdominal Exam GI & Abdominal Exam: Normal Bowel Sounds. absent: Guarding, Rebound - Extremities Exam Extremities exam: normal inspection - Neurological Exam Neurological exam: Alert, CN II-XII Intact, Oriented x3 - Psychiatric Exam Psychiatric exam: Normal Affect, Normal Mood - Skin Skin Exam: Dry, Intact, Normal Color, Warm Discharge Plan - Discharge Medications Prescriptions: diltiaZEM [Cardizem] 30 mg PO QID 30 Days #120 tab Magnesium Oxide [Mag-Ox] 400 mg PO DAILY #30 tab Metoprolol Succinate XL [Toprol XL] 125 mg PO BRK #30 tab Metoprolol Succinate XL [Toprol XL] 25 mg PO DIN #30 tab - Follow Up Plan Condition: GUARDED Disposition: HOME/ ROUTINE Additional Instructions: 1) Patient to follow up with PMD within one week of discharge. 2) Patient to take any prescriptions as directed, unless otherwise indicated. 3) Patient is to follow up with Dr. Turk/Corbin within one week of discharge. 4) Patient is also being given a prescription for 2 gram of Rocephin IVPB for 8 days. Patient is to obtain 2 sets of blood cultures after completing course of IV antibiotics. Referrals: Cal Pandey MD [Primary Care Provider] - Pro Turk MD [Staff Provider] -
[2018-05-27] MEDS: Metoprolol Succinate 100 mg XL Tab PO SCH (09:18)
[2018-05-27] MEDS: Potassium Chloride 10 mEq ER Tab PO SCH (09:18)
[2018-05-27] MEDS: Cholecalciferol 1,000 INTLU TAB PO SCH (09:19)
[2018-05-27] MEDS: BUDESONIDE 180 MCG IH SCH (09:24)
[2018-05-27] MEDS ORDERED: diltiaZEM 120 mg/24 Hours CD Cap PO SCH (10:00)
[2018-05-27] MEDS ORDERED: cefTRIAXone 2 GM IN NS 2 GM/100 ML BAG IVPB SCH (10:00)
[2018-05-27] MEDS: Bacitracin Ointment 30 GM TUBE TOP SCH (11:05)
--- NOTE | 2018-05-27 11:23 | PN ---
PULMONARY PROGRESS NOTE DATE: 05/27/2018 REFERRING PHYSICIAN: Dr. Zafar. SUBJECTIVE: The patient is sitting up in armchair at bedside. No acute distress. No overnight events reported. No headache, rhinitis, cough, shortness of breath, chest pain, abdominal pain, nausea, vomiting, dysuria, leg pain or leg swelling reported. OBJECTIVE: GENERAL: No acute distress. VITAL SIGNS: Blood pressure 110/56, pulse 76, temperature 97.8 and oxygen saturation 95%. HEENT: Moist mucus membranes. NECK: Supple. No JVD. LUNGS: Fair, clear on the left and diminished breath sounds on the right base. CARDIOVASCULAR: S1 and S2, audible. ABDOMEN: Soft and nontender. No distention. No organomegaly. EXTREMITIES: No bilateral lower extremity edema. Ecchymotic area to left leg. NEUROLOGIC: Awake, alert and verbal. Follows simple commands. MEDICATION: Reviewed. Eliquis 5 mg p.o. twice a day, aspirin 81 mg p.o. daily, bacitracin topically to affected area, Rocephin 2 g daily, Vitamin D 1000 unit daily, Cardizem 120 mg p.o. daily, Robitussin DM 5 mL p.o. every 4 hours p.r.n., Solu-Cortef 20 mg IV push daily, Ativan 0.5 mg every 6 hours, loratadine 10 mg p.o. daily, magnesium oxide 600 mg p.o. daily, Toprol-XL 125 mg in the morning and 25 mg at dinner, Singulair 10 mg p.o. at bedtime, Pulmicort inhaler daily, Protonix 20 mg daily, potassium chloride 20 mEq twice a day, paroxetine 100 mg p.o. daily and Ambien 5 mg p.o. at bedtime p.r.n. for insomnia. LABORATORY DATA: Reviewed. WBC 7.6, RBC 3.35, hemoglobin 11.0, hematocrit 36.3 and platelets 277. Sodium 138, potassium 4.7, chloride 106, carbon dioxide 26, anion gap 9, BUN 41, creatinine 0.9, GFR is greater than 60, random glucose 140, calcium 9, magnesium 1.5, total bilirubin 0.5, AST 37, ALT 33, alkaline phosphatase 74, total protein 5.5, albumin 2.9, globulin 2.6 and albumin-globulin ratio 1.1. Pleural fluid gram-stain preliminary shows no anaerobes isolated, no growth after 2 days. IMPRESSION AND PLAN: Bacteremia, urinary tract infection, history of ovarian cancer, has recurrent pleural effusion, bacteremia may have been caused from malfunctioning PleurX catheter, history of renal cell carcinoma with nephrectomy, atrial fibrillation with rapid ventricular response. The patient is scheduled to be discharged home today. Pulmonary point of view, the patient is doing well, continue inhaled bronchodilators, gastric prophylaxis. Antibiotics as per Infectious Disease. Continue anticoagulation therapy. We recommend this patient have full pulmonary function test as outpatient, also recommend the patient be discharged with [facility]. This patient was seen and examined with Dr. Love. Discussed assessment and plan as described above. Thank you for this consult, and we will follow with you. Casey Galvan APN Concepcion Love MD
--- NOTE | 2018-05-27 12:25 | PN ---
DATE: 05/27/2018 SUBJECTIVE: The patient seen in room 260, bed 2. This morning the patient has no fevers, no chills. No nausea. No vomiting. PHYSICAL EXAMINATION: VITAL SIGNS: Temperature 98, blood pressure 99/60, respiratory rate 20. HEENT: Examination of HEENT is unremarkable. NECK: Supple. LABORATORY DATA: White count 7.6, hemoglobin 11, platelets 277. Chemistries reveals a BUN of 41, creatinine of 0.9. Urinalysis is noted and microbiology reveals the blood cultures were micrococcus, aerococcus in the urine and E. coli in the urine. Repeat blood cultures are negative. Review of orders reveals the patient to be on doxycycline p.o., meropenem, Solu-Cortef. The patient also had a procalcitonin which was within normal. ASSESSMENT AND PLAN: This is a 78-year-old female with sepsis with Micrococcus bacteremia, one bottle. The patient does have a right-sided Port-A-Cath with right-sided healthcare-associated pneumonia with PleurX catheter been removed from the left side and a history of stage IIIb ovarian cancer with metastases, small cell lung cancer and rheumatoid arthritis, chronic congestive heart failure, chronic right-sided pleural effusion status post PleurX placement, on doxycycline and meropenem day #5. With the repeat blood cultures, the micrococcus only one bottle. Since it is known micrococcus, he is currently on meropenem and doxycycline, today is day #5. We will follow closely with you. Reese Bradford MD DT: 05/27/2018 8:02:48
[2018-05-27 13:05] VITALS: BP 102/77; PULSE 50; RESP 19; TEMP 97.1
--- NOTE | 2018-05-27 21:14 | PN ---
DATE: 05/27/2018 SUBJECTIVE: The patient is seen sitting in chair. She is awake, she is alert, she is comfortable. She denies any pain. She denies any chest tightness. She has had some cough. PHYSICAL EXAMINATION: GENERAL: Elderly lady sitting in chair. VITAL SIGNS: Blood pressure 102/77, heart rate 50, respiratory rate 18, temperature 97.1. HEENT: Normocephalic, atraumatic, positive pallor. NECK: Supple, no JVD. LUNGS: Bilateral equal air entry, bilateral equal expansion. CARDIAC: S1, S2, regular rate and rhythm. No murmur, no rub. ABDOMEN: Soft, nondistended, nontender, bowel sounds present. EXTREMITIES: No lower extremity edema. INTAKE AND OUTPUT: ____, that is not charted. LABORATORY DATA: WBC 7.6, hemoglobin 11, hematocrit 36, platelets 277. Sodium 138, potassium 4.7, chloride 106, CO2 27, BUN 41, creatinine 0.9, glucose 140, calcium 9, phosphorus not checked, magnesium 1.5, AST 37, ALT 33, albumin 2.9. Pleural fluid cultures, no growth. Fungal culture, no growth. Blood cultures, no growth. Urine culture from 05/20/2018, E. coli. CURRENT MEDICATIONS: Ambien, Atrovent, bacitracin, Cardizem 30 4 times daily, Claritin, aspirin, potassium 20 mEq b.i.d., magnesium oxide 600 daily, Protonix, Robitussin, ceftriaxone 2 g IV piggyback, Singulair, Toprol XL 150. ASSESSMENT: 1. Mild prerenal azotemia. 2. Hypomagnesemia. 3. New onset atrial fibrillation with rapid ventricular rate. 4. Mild cytomegalovirus of the lungs, stage III B ovarian cancer. 5. History of right nephrectomy for renal cell carcinoma. PLAN: 1. Continue magnesium supplementation. 2. Continue Cardizem. 3. Antibiotics as per ID recommendations. 4. No objection to discharge planning. Deanna Ivy MD
== END 2018-05-27 15:57 | disposition home or self-care (01) | DRG 919 ==
LOC: ED 11:49 → ERH 13:29 → 2RNO 05-21 02:06
PROVIDERS: ADMIT Family Medicine; ATTEND Family Medicine
PROC: 3E0F7GC Introduction of Other Therapeutic Substance into Respiratory Tract, Via Natural or Artificial Opening (ICD-10-PCS; 2018-05-21)
PROC: 0WP933Z Removal of Infusion Device from Right Pleural Cavity, Percutaneous Approach (ICD-10-PCS; principal; 2018-05-24)
PROC: 0W993ZZ Drainage of Right Pleural Cavity, Percutaneous Approach (ICD-10-PCS; 2018-05-24)
DX: T85.79XA Infection and inflammatory reaction due to other internal prosthetic devices, implants and grafts, initial encounter (principal); A41.89 Other specified sepsis; J18.9 Pneumonia, unspecified organism; J91.0 Malignant pleural effusion; C56.9 Malignant neoplasm of unspecified ovary; N39.0 Urinary tract infection, site not specified; R64 Cachexia; I48.0 Paroxysmal atrial fibrillation; I11.0 Hypertensive heart disease with heart failure; I25.10 Atherosclerotic heart disease of native coronary artery without angina pectoris; D63.0 Anemia in neoplastic disease; Y84.8 Other medical procedures as the cause of abnormal reaction of the patient, or of later complication, without mention of misadventure at the time of the procedure; E87.6 Hypokalemia; Z68.21 Body mass index [BMI] 21.0-21.9, adult; E83.42 Hypomagnesemia; I50.9 Heart failure, unspecified; I71.4 Abdominal aortic aneurysm, without rupture; I73.9 Peripheral vascular disease, unspecified; M06.9 Rheumatoid arthritis, unspecified; Z85.118 Personal history of other malignant neoplasm of bronchus and lung; Z85.528 Personal history of other malignant neoplasm of kidney; Z92.21 Personal history of antineoplastic chemotherapy; Z90.5 Acquired absence of kidney; Z95.5 Presence of coronary angioplasty implant and graft; Z87.891 Personal history of nicotine dependence

== ENCOUNTER 2018-06-21 13:13 | Outpatient (CLI) | payer MEDICARE | END 2018-06-21 13:14 | disposition home or self-care (01) | LOC: RAD 13:13 ==

== ENCOUNTER 2018-06-24 13:25 | Inpatient (IN) | payer MEDICARE ==
[2018-06-24 13:44] VITALS: BMI 22.0
[2018-06-24] MEDS ORDERED: Silver Sulfadiazine 1% Cream (25 gm) TP STA (13:49)
--- NOTE | 2018-06-24 14:10 | ED PDOC ---
Arrival/HPI - General Time Seen by Provider: 06/24/18 13:31 - History of Present Illness Narrative History of Present Illness (Text): 78 year old F c Past medical history Stage IV metastatic ovarian carcinoma, renal carcincoma, small cell lung cancer p/w shortness of breath x 1 week. Gradually worsening. Associated with cough. Denies fever. Denies vomiting. Past Medical History - Infectious Disease Hx of Infectious Diseases: None - Cardiac Hx Cardiac Disorders: Yes (CAD) - Pulmonary Hx Respiratory Disorders: Yes - Neurological Hx Neurological Disorder: No - HEENT Hx HEENT Disorder: Yes Hx Cataracts: Yes - Renal Hx Renal Disorder: No - Endocrine/Metabolic Hx Endocrine Disorders: No - Hematological/Oncological Hx Cancer: Yes (Ovarian CA) - Integumentary Hx Dermatological Disorder: No - Musculoskeletal/Rheumatological Hx Falls: Yes - Gastrointestinal Hx Gastrointestinal Disorders: No - Genitourinary/Gynecological Hx Genitourinary Disorders: No - Psychiatric Hx Psychophysiologic Disorder: No Hx Substance Use: No - Surgical History Hx Coronary Stent: Yes - Anesthesia Hx Anesthesia: Yes Hx Anesthesia Reactions: No Hx Malignant Hyperthermia: No - Suicidal Assessment Feels Threatened In Home Enviroment: No Family/Social History Family/Social History: No Known Family HX Smoking Status: Former Smoker Hx Alcohol Use: Yes (Social/occasional) Hx Substance Use: No Allergies/Home Meds Allergies/Adverse Reactions: Allergies No Known Allergies Allergy (Verified 05/20/18 12:03) Home Medications: Home Meds Medication Instructions Recorded Confirmed Cholecalciferol [Vitamin D 1000 IU] 1,000 mg PO DAILY 03/25/18 05/31/18 Levocetirizine Dihydrochloride 1 tab PO DAILY 03/25/18 05/31/18 [Xyzal] Pyridoxine [Vitamin B6 50 mg Tab] 100 mg PO DAILY 03/25/18 05/31/18 Aspirin [Ecotrin] 81 mg PO MWF 05/28/18 05/31/18 Budesonide [Pulmicort Flexhaler] 180 mcg INH DAILY 05/28/18 05/31/18 Metoprolol Succinate XL [Toprol XL] 100 mg PO BRK 05/28/18 05/31/18 metOLazone [Zaroxolyn] 205 mg PO TTS 05/28/18 05/31/18 Review of Systems - Physician Review All systems were reviewed & negative as marked: Yes - Review of Systems Constitutional: absent: Fevers Cardiovascular: absent: Chest Pain Physical Exam - Physical Exam Narrative Physical Exam (Text): Constitutional: No acute distress. Head: Normocephalic. Atraumatic. Eyes: PERRL. ENT: Moist mucous membranes. Neck: Supple. Cardiovascular: Regular rate. Chest: No tenderness. Respiratory: Diffuse rhonchi. GI: Soft. Nontender. Nondistended. Back: No CVA tenderness. Musculoskeletal: No tenderness or swelling of extremities. Skin: Back ulceration. Neurologic: Alert, no focal deficit. Vital Signs Temp Pulse Resp BP Pulse Ox 06/24/18 13:25 97.2 F L 75 20 142/54 L 98 Medical Decision Making - RAD Interpretation Narrative RAD Interpretations (Text): 06/24/18 19:31 Chest X-ray reviewed by radiologist, shows: IMPRESSION: Marginal improvement in mid inferior right sided pulmonary infiltrate with interval worsening of left pleural effusion and left basilar potential underlying airspace disease. Radiology Orders: 06/24/18 13:48 CHEST PORTABLE [RAD] Stat Glass Checker: Radiologist - EKG Interpretation EKG Interpretation (Text): 06/24/18 19:31 EKG: Ordered, reviewed, and independently interpreted the EKG. Rate : 100 BPM Rhythm : NSR Interpretation : Atrial fibrillation, RBBB, T wave abnormality, consider lateral ischemia or digitalis effect Interpreted by ED Physician: No Type: 12 lead EKG - Medication Orders Current Medication Orders: Discontinued Medications Silver Sulfadiazine (Silvadene 1% 25 Gm) 1 gm TP STAT STA Stop: 06/24/18 13:50 Disposition/Present on Arrival - Present on Arrival Any Indicators Present on Arrival: No History of DVT/PE: No History of Uncontrolled Diabetes: No Urinary Catheter: No History of Decub. Ulcer: No History Surgical Site Infection Following: CABG - Mediastinitis - Disposition Have Diagnosis and Disposition been Completed?: Yes Diagnosis: Pleural effusion, Pneumonia Disposition: HOSPITALIZED Disposition Time: 15:30 Patient Plan: Admission Condition: GUARDED
--- NOTE | 2018-06-24 15:05 | RAD ---
Date of service: 06/24/2018 HISTORY: dyspnea, cough COMPARISON: Portable chest 06/21/2018. FINDINGS: Right MediPort unchanged in position. LUNGS: Limited improvement in extensive right sided pulmonary infiltrate with volume loss remaining. Apical pleural thickening/loculated pleural effusion unchanged. Improved creasing left pleural effusion and basilar airspace disease 6 affected. No right pleural effusion at the base. No pneumothorax bilaterally. PLEURA: As above. CARDIOVASCULAR: Extensive aortic atherosclerotic calcification present with aneurysmal dilatation seen variably at the arch through proximal descending segment and recurring at the distal segment versus proximal abdominal aortic segment. Stable cardiomegaly. No pulmonary vascular congestion. OSSEOUS STRUCTURES: No significant abnormalities. VISUALIZED UPPER ABDOMEN: Normal. OTHER FINDINGS: None. IMPRESSION: Marginal improvement in mid inferior right sided pulmonary infiltrate with interval worsening of left pleural effusion and left basilar potential underlying airspace disease.
[2018-06-24] MEDS ORDERED: Cefepime 1gm in NS 100ml 1 GM/100 ML BAG IVPB STA (15:08)
[2018-06-24] MEDS ORDERED: Vancomycin 1gm in NS 250ml 1 GM/250 ML BAG IVPB STA (15:08)
[2018-06-24 16:38] LABS: BASO # 0.02 K/mm3 (0.0-2.0); BASO % 0.2 % (0.0-3.0); EOS # 0.1 (0.0-0.7); EOS % 0.5 % (1.5-5.0); GRAN # 7.94 (1.4-6.5); GRAN % 82.3 % (50.0-68.0); HEMOGLOBIN 11.3 g/dL (12.0-16.0); LYMPH % 9.9 % (22.0-35.0); MEAN CELL VOLUME 104.9 fl (80.0-105.0); MEAN CORPUSCULAR HEMOGLOBIN 32.8 pg (25.0-35.0); MEAN CORPUSCULAR HGB CONC 31.3 g/dl (31.0-37.0); MEAN PLATELET VOLUME 9.6 fl (7.0-11.0); MONO # 0.7 (0.1-0.6); MONO % 7.1 % (1.0-6.0); RBC 3.44 10^6/uL (3.5-6.1); RED CELL DISTRIBUTION WIDTH 16.5 % (11.5-14.5); WHITE BLOOD COUNT 9.7 10^3/uL (4.5-11.0)
[2018-06-24 16:49] LABS: ALB/GLOB RATIO 0.9 (1.1-1.8); ALBUMIN 2.2 g/dL (3.0-4.8); ALT/SGPT 31 U/L (7-56); AST/SGOT 21 U/L (14-36); BLOOD UREA NITROGEN 29 mg/dL (7-21); CALCIUM 6.7 mg/dL (8.4-10.5); GFR NON-AFRICAN AMERICAN > 60
[2018-06-24] MEDS ORDERED: LEVALBUTEROL TARTRATE 0.045 MG IH PRN (20:14)
[2018-06-24] MEDS ORDERED: Oxycodone/Acetaminophen 5/325 mg Tab PO PRN (20:14)
--- NOTE | 2018-06-24 20:19 | CARD ---
APPROVED REPORT Date of service: 06/24/2018 EKG Measurement Heart [id number] <Conclusion> Atrial fibrillation Right bundle branch block T wave abnormality, consider lateral ischemia or digitalis effect Abnormal ECG
[2018-06-24] MEDS ORDERED: Pantoprazole 40 mg EC Tab PO STA (20:20)
[2018-06-24 21:00] LABS: INR 1.27; PROTHROMBIN TIME 14.5 SECONDS (9.4-12.5)
[2018-06-24] MEDS: Meropenem IV 1 gm in NS 1 GM/50 ML BAG IVPB SCH (21:55)
[2018-06-24] MEDS: MethylPREDNISolone 40 mg Vial IVP SCH (21:56)
[2018-06-24] MEDS ORDERED: Piperacill/Tazo 4.5gm in NS 4.5 GM/100 ML BAG IVPB SCH (22:00)
[2018-06-25] MEDS ORDERED: LEVALBUTEROL TARTRATE 0.63 MG IH SCH
[2018-06-25] MEDS ORDERED: Levalbuterol 0.63 MG/3 ML Inhal Soln UD IH PRN (00:08)
--- NOTE | 2018-06-25 01:03 | HP ---
DATE OF VISIT: 06/24/2018 This is Ms. Jason's hospital admission history and physical. For Dr. Lind. CHIEF COMPLAINT: Increasing shortness of breath. HISTORY OF PRESENT ILLNESS: The patient is a 78-year-old female originally seen in Dr. Lind's office earlier today with complaint of increasing shortness of breath, severe fatigue with the patient dyspneic at that time. She was then referred for admission via the emergency room with the patient known to suffer from stage IV metastatic ovarian cancer along with history of renal cell carcinoma and now small cell CA of the lung. At present, she is now resting well comfortably with the patient also known to have a PleurX catheter in C2 on the right chest wall. Again, Dr. Lind reports this is a 3rd primary with metastatic ovarian cancer and a right pleural effusion, which is consistent with the ovarian primary involving the lung. ALLERGIES: NO KNOWN ALLERGIES. 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 MEDICATIONS: Include Ecotrin, Eliquis, oxycodone, metoprolol, levocetirizine, Singulair, Robitussin, Xopenex. FAMILY HISTORY AND SOCIAL HISTORY: Nonsmoker, non-ethanolic, otherwise, noncontributory. REVIEW OF SYSTEMS: Twelve-point review of systems was done, which is negative except for items mentioned in the history of present illness. OBJECTIVE/PHYSICAL EXAMINATION: VITAL SIGNS: Temperature 97.2, pulse 75, respirations 20, blood pressure 142/54, pulse ox 96% on 4 L nasal cannula. HEENT: Unremarkable. Temples are sunken. Tongue is dry. NECK: Supple. HEART: Regular rate, occasional ectopic beat. LUNGS: Scattered rhonchi bilaterally. Decreased breath sounds on the right. ABDOMEN: Soft. EXTREMITIES: No edema. SKIN: Warm and dry. NEUROLOGIC: Somnolent, but arousable. LABORATORY DATA: The patient's labs were done. White blood cell count of 9.7, hemoglobin 11.3, hematocrit 36.1, platelet count 297,000. Metabolic panel showing a BUN of 29, creatinine of 0.6, calcium of 6.7, total protein 4.6. INR of 1.27. Influenza testing was negative. The patient had a chest x-ray done earlier today; it was read as marginal improvement in the mid-inferior right-sided pulmonary infiltrate with interval worsening left pleural effusion, left basilar, potential underlying airspace disease. An EKG was done earlier today; it was read as atrial fibrillation, right bundle-branch block, T-wave abnormality; consider lateral ischemia or digitalis effect; abnormal EKG. Heart rate at that time was 100. Heart rate at present is 60. ASSESSMENT: For this patient is that of exacerbation of chronic obstructive pulmonary disease, stage IV metastatic mullerian ovarian carcinoma with lung metastasis, renal carcinoma history, atrial fibrillation, history of deep venous thrombosis, pleural effusion, pneumonia, atherosclerotic cardiovascular disease, peripheral vascular disease, history of aneurysm, degenerative joint disease. PLAN: For this patient after conversation with Dr. Lind is to continue her present medical regimen. We will ask for consult with Dr. Love, Pulmonary; Dr. Calles in Cardiology; Dr. Bradford in Infectious Disease, with antibiotics to begin along with nebulizer treatments with continuation of her present medical regimen, which includes Ambien, Atrovent, Cardizem, Ecotrin, Eliquis, Percocet, Protonix, Toprol-XL, and Xopenex. Also, we will check the CT scan of the chest, which was done and has not been read yet. Prognosis for this patient is guarded. Again, this is a complex patient with a comprehensive medically necessary and appropriate visit carried out in excess of 70 minutes with the patient's questions answered to her satisfaction. Luis Zafar MD
[2018-06-25] MEDS: Levalbuterol 0.63 MG/3 ML Inhal Soln UD IH SCH ×4 (02:00→20:14)
[2018-06-25] MEDS: Ipratropium 0.02% Inhal Soln (0.5 mg/2.5 ml) UD IH SCH ×4 (02:01→20:14)
[2018-06-25 02:33] LABS: URINE APPEARANCE CLEAR (CLEAR); URINE BILIRUBIN NEGATIVE (NEGATIVE); URINE BLOOD NEGATIVE (NEGATIVE); URINE COLOR YELLOW (YELLOW); URINE GLUCOSE (UA) NEGATIVE (NEGATIVE); URINE LEUKOCYTE ESTERASE NEGATIVE Leu/uL (NEGATIVE); URINE PROTEIN NEGATIVE mg/dL (<30 mg/dL); URINE UROBILINOGEN 0.2 E.U./dL (<1 E.U./dL)
--- NOTE | 2018-06-25 03:16 | CON ---
DATE: 06/24/2018 REFERRING PHYSICIAN: Luis Zafar MD REASON FOR CONSULT: Cough, shortness of breath, lung cancer. HISTORY OF PRESENT ILLNESS: This is a 78 years old female known to me with history of metastatic ovarian carcinoma, renal cell carcinoma in the past, small cell lung cancer, has been short of breath for the last few weeks, seen at Dr. Lind's office, was treated with antibiotics and prednisone as outpatient without much benefit, comes in with cough, shortness of breath, feeling weak. No nausea, no vomiting, no diarrhea. Has a right leg nonhealing ulcer. PAST MEDICAL HISTORY: As per history of present illness and history of coronary artery disease and coronary stent. FAMILY HISTORY: No significant cardiopulmonary disease reported. SOCIAL HISTORY: Former smoker. ALLERGIES: NONE KNOWN. MEDICATIONS: As outpatient, she had been taking Xyzal, vitamin D, vitamin B6, aspirin, budesonide inhaled, Metoprolol Succinate XL 100 mg daily, also been on Zaroxolyn. REVIEW OF SYSTEMS: There is no headache, has some rhinitis, cough, sputum production, short of breath. No chest pain. No nausea or vomiting. No abdominal pain. Has a right leg nonhealing ulcer. PHYSICAL EXAMINATION: GENERAL: [id number] distress secondary to cough and shortness of breath. VITAL SIGNS: Temperature is 98, heart rate 75, respiratory rate is 20, blood pressure 142/54, pulse ox 96% on 4 liters nasal cannula. HEENT: Moist mucous membranes. No ulcer or thrush noted. NECK: Supple. No JVD. LUNGS: Bilateral rhonchi and crackles. HEART: S1 and S2. ABDOMEN: Soft, nontender. No organomegaly. EXTREMITIES: There is no much edema. Right leg nonhealing ulcer. NEUROLOGIC: Awake, alert, follows simple commands. LABORATORY DATA: Hemoglobin 11.3, hematocrit 36.1, WBC 9.7, platelet is 297. Sodium 139, potassium 2.9, chloride 103, bicarbonate 22, BUN 29, creatinine 0.6, glucose 59, calcium is 6.7, phosphorus 3.8, magnesium 1.2, AST 21, ALT 31, alk phos is 59. Albumin is 2.2. Influenza A and B is negative. Chest x-ray done in ER shows marginal improvement in the right mid inferior right-sided pulmonary infiltrate with interval worsening of the left pleural effusion and the left basilar potential underlying airspace disease. IMPRESSION AND PLAN: Ovarian cancer, pleural effusion, history of renal cell carcinoma requiring nephrectomy, atrial fibrillation, chronic lung disease. We will get proBNP, procalcitonin in the morning. CT scan of the chest to evaluate lung parenchyma. Add IV and inhaled bronchodilator, antibiotics, gastric prophylaxis, DVT prophylaxis. Thank you, and we will follow with you. Concepcion Love MD
[2018-06-25] MEDS: MethylPREDNISolone 40 mg Vial IVP SCH ×3 (05:10→21:23)
[2018-06-25] MEDS: Meropenem IV 1 gm in NS 1 GM/50 ML BAG IVPB SCH ×3 (05:11→21:22)
[2018-06-25] MEDS: Vancomycin 1gm in NS 250ml 1 GM/250 ML BAG IVPB SCH ×2 (05:11→17:45)
[2018-06-25 06:47] LABS: BASO # 0.01 K/mm3 (0.0-2.0); BASO % 0.1 % (0.0-3.0); GRAN # 7.98 (1.4-6.5); GRAN % 94.9 % (50.0-68.0); HEMOGLOBIN 11.5 g/dL (12.0-16.0); LYMPH # 0.3 (1.2-3.4); LYMPH % 3.7 % (22.0-35.0); MEAN CELL VOLUME 105.4 fl (80.0-105.0); MEAN CORPUSCULAR HEMOGLOBIN 32.6 pg (25.0-35.0); MEAN CORPUSCULAR HGB CONC 30.9 g/dl (31.0-37.0); MEAN PLATELET VOLUME 9.5 fl (7.0-11.0); MONO # 0.1 (0.1-0.6); MONO % 1.3 % (1.0-6.0); PLATELET COUNT 292 10^3/uL (120.0-450.0); RBC 3.53 10^6/uL (3.5-6.1); RED CELL DISTRIBUTION WIDTH 16.5 % (11.5-14.5); WHITE BLOOD COUNT 8.4 10^3/uL (4.5-11.0)
[2018-06-25 07:24] LABS: ALBUMIN 3.1 g/dL (3.0-4.8); ALT/SGPT 31 U/L (7-56); AST/SGOT 23 U/L (14-36); B-TYPE NATRIURETIC PEPTIDE 12400 pg/mL (0-450); BLOOD UREA NITROGEN 37 mg/dL (7-21); CALCIUM 9.4 mg/dL (8.4-10.5); GFR NON-AFRICAN AMERICAN > 60
[2018-06-25 08:00] LABS: BAND 1 % (0-2); LYMPHOCYTE 1 % (22.0-35.0); NEUTROPHIL 98 % (50.0-70.0)
[2018-06-25 08:01] LABS: PLATELET ESTIMATE NORMAL (NORMAL)
--- NOTE | 2018-06-25 08:07 | CP.PCM.CON ---
<America Bach - Last Filed: 06/25/18 14:57> History of Present Illness - History of Present Illness History of Present Illness: PGY-[address] Sandoval ID Consult: lung infiltrate Ms Jason, 78 F, with PMHx Stage IV metastatic ovarian carcinoma, recent chemotherapy, renal carcincoma, small cell lung cancer c/o shortness of breath x last few weeks and was sent to ED by Dr Lind. Associated with cough, severe fatigue, dyspnea. He was treated with antibiotics and prednisone outpatient without improvement. She was admitted in 1 month ago for sob. found to have a-fib RVR, micrococcus bacteremia (1 bottle), 2nd set negative, no vegetation per echo, removed the pheural catherter, treated with IV rocephin x 10 days. ROS-(+) cough with sputum/rhiniorrhea/SOB/weak. 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, treated with interferon (27 years ago) COPD, recurrent pleural effusion with chronic R plurX CAD s/p stent, complicated by Mediastinitis CHF, Aortic aneurysm, HTN, PVD, A fib on eliquis Hx pleural effusion with PleurX catheter Hemochromatosis Hx DVT Hx polymyalgia rheumatica Cataract Non healing ulcer in R leg Hx Aerococcus Viridans/E coli UTI (05/20/18) Hx Micrococcus bacteremia () with pleurX removed, treated with daptomycin (due to GFR 40s/1 kidney), then 10 day rocephin PSH R pleurx, removal on 05/24/18 R Nephrectomy R port-a-cath placement cholecystectomy cardiac cath with stent FH Diabetes SH Former smoker, no ETOH/drugs All NKDA Med ASA, Eliquis, Cardizem, Toprol, oxycodone Upon ED arrival, T afebrile, HR 93, BP 110s, RR 22, 96%4L WBC 9.7, Hb 11.3 (MCV 105). BMP unremarkable: BUN 37/Cre 0.9 BNP 53289. U/A neg. flu neg EKG: NSR 100 BPM, RBBB, T wave abnormality lateral leads CXR: (+) Marginal improvement in R mid-inferior pulmonary infiltrate with (+) interval worsening of left pleural effusion and left basilar potential underlying airspace disease. Chest CT: pending read Past Patient History - Infectious Disease Hx of Infectious Diseases: None - Past Social History Smoking Status: Former Smoker - CARDIAC Hx Cardiac Disorders: Yes (CAD) - PULMONARY Hx Respiratory Disorders: Yes - NEUROLOGICAL Hx Neurological Disorder: No - HEENT Hx HEENT Problems: Yes Hx Cataracts: Yes - RENAL Hx Chronic Kidney Disease: No - ENDOCRINE/METABOLIC Hx Endocrine Disorders: No - HEMATOLOGICAL/ONCOLOGICAL Hx Cancer: Yes (Ovarian CA) - INTEGUMENTARY Hx Dermatological Problems: No - MUSCULOSKELETAL/RHEUMATOLOGICAL Hx Falls: Yes - GASTROINTESTINAL Hx Gastrointestinal Disorders: No - GENITOURINARY/GYNECOLOGICAL Hx Genitourinary Disorders: No - PSYCHIATRIC Hx Psychophysiologic Disorder: No Hx Substance Use: No - SURGICAL HISTORY Hx Cholecystectomy: Yes Hx Coronary Stent: Yes - ANESTHESIA Hx Anesthesia: Yes Hx Anesthesia Reactions: No Hx Malignant Hyperthermia: No Meds Allergies/Adverse Reactions: Allergies Allergy/AdvReac Type Severity Reaction Status Date / Time No Known Allergies Allergy Verified 05/20/18 12:03 - Medications Medications: Current Medications Apixaban (Eliquis) 5 mg PO BID [facility]; Protocol Aspirin (Ecotrin) 81 mg PO MWF [facility] Cholecalciferol (Vitamin D) 1,000 intlu PO DAILY [facility] Diltiazem HCl (Cardizem) 30 mg PO QID [facility] Last Admin: 06/24/18 21:55 Dose: 30 mg Doxycycline Hyclate (Doryx) 100 mg PO Q12 [facility]; Protocol Stop: 07/03/18 22:01 Last Admin: 06/24/18 21:56 Dose: 100 mg Meropenem (Merrem Iv 1 Gm Premix) 1 gm in 50 mls @ 100 mls/hr IVPB Q8 [facility]; Protocol Stop: 07/03/18 22:01 Last Admin: 06/25/18 05:11 Dose: 100 mls/hr Vancomycin HCl (Vancomycin 1gm) 1 gm in 250 mls @ 167 mls/hr IVPB Q12H [facility]; Protocol Stop: 07/03/18 06:01 Last Admin: 06/25/18 05:11 Dose: 167 mls/hr Ipratropium [place] (Atrovent) 0.5 mg IH [id number] [facility] Last Admin: 06/25/18 02:01 Dose: 0.5 mg Levalbuterol HCl (Xopenex) 0.63 mg IH [id number] [facility] Last Admin: 06/25/18 02:00 Dose: 0.63 mg Levalbuterol HCl (Xopenex) 0.63 mg IH [id number] PRN PRN Reason: Shortness of Breath Last Admin: 06/25/18 06:15 Dose: 0.63 mg Magnesium Oxide (Mag-Ox) 400 mg PO DAILY [facility] Methylprednisolone (Solu-Medrol) 40 mg IVP Q8 [facility] Last Admin: 06/25/18 05:10 Dose: 40 mg Metoprolol Succinate (Toprol Xl) 100 mg PO BRK [facility] Montelukast Sodium (Singulair) 10 mg PO DAILY [facility] Oxycodone/Acetaminophen (Percocet 5/325 Mg Tab) 1 tab PO Q4H PRN PRN Reason: Pain, moderate (4-7) Stop: 06/27/18 20:15 Pyridoxine HCl (Vitamin B6 50 Mg Tab) 100 mg PO DAILY [facility] Zolpidem Tartrate (Ambien) 5 mg PO HS PRN; Protocol PRN Reason: Insomnia Last Admin: 06/24/18 21:56 Dose: 5 mg Physical Exam - Constitutional Appears: No Acute Distress Additional comments: on 4L, cough, able to complete sentences w/o pause - Head Exam Head Exam: ATRAUMATIC, NORMAL INSPECTION, NORMOCEPHALIC - Eye Exam Eye Exam: EOMI, Normal appearance, PERRL. absent: Scleral icterus Pupil Exam: NORMAL ACCOMODATION - ENT Exam ENT Exam: Mucous Membranes Moist - Neck Exam Additional comments: supple - Respiratory Exam Respiratory Exam: Rhonchi, Wheezes (mild), NORMAL BREATHING PATTERN - Cardiovascular Exam Cardiovascular Exam: REGULAR RHYTHM, +S1, +S2. absent: Systolic Murmur - GI/Abdominal Exam GI & Abdominal Exam: Normal Bowel Sounds, Soft. absent: Distended, Firm, Guarding, Rigid, Tenderness - Extremities Exam Extremities exam: Negative for: calf tenderness, pedal edema - Back Exam Back exam: absent: CVA tenderness (L), CVA tenderness (R) - Neurological Exam Neurological exam: Alert, Oriented x3 - Psychiatric Exam Psychiatric exam: Normal Affect, Normal Mood - Skin Skin Exam: Dry, Warm Results - Vital Signs Recent Vital Signs: Last Vital Signs Temp 97.4 F L 06/25/18 06:00 Pulse 84 06/25/18 06:00 Resp 20 06/25/18 06:00 BP 114/76 06/25/18 06:00 Pulse Ox 96 06/25/18 06:00 - Labs Result Diagrams: 06/25/18 06:09 06/25/18 06:09 Labs: Laboratory Results - last 24 hr 06/24/18 06/24/18 06/24/18 16:26 16:26 16:26 WBC 9.7 RBC 3.44 L Hgb 11.3 L Hct 36.1 MCV 104.9 D MCH 32.8 MCHC 31.3 RDW 16.5 H Plt Count 297 MPV 9.6 Gran % 82.3 H Lymph % (Auto) 9.9 L [place] % (Auto) 7.1 H Eos % (Auto) 0.5 L Baso % (Auto) 0.2 Gran # 7.94 H Lymph # (Auto) 1.0 L [place] # (Auto) 0.7 H Eos # (Auto) 0.1 Baso # (Auto) 0.02 Neutrophils % (Manual) Band Neutrophils % Lymphocytes % (Manual) Monocytes % (Manual) Platelet Evaluation PT Cancelled INR Cancelled APTT Cancelled Sodium 139 Potassium 3.9 Chloride 113 H Carbon Dioxide 22 Anion Gap 8 L BUN 29 H Creatinine 0.6 L Est GFR ( Amer) > 60 Est GFR (Non-Af Amer) > 60 Random Glucose 59 L Calcium 6.7 L* Phosphorus 3.8 Magnesium 1.2 L Total Bilirubin 0.2 AST 21 ALT 31 Alkaline Phosphatase 59 NT-Pro-B Natriuret Pep Total Protein 4.6 L Albumin 2.2 L Globulin 2.4 Albumin/Globulin Ratio 0.9 L Urine Color Urine Appearance Urine pH Ur Specific [place] Urine Protein Urine Glucose (UA) Urine Ketones Urine Blood Urine Nitrate Urine Bilirubin Urine Urobilinogen Ur Leukocyte Esterase Influenza Typ A,B (EIA) 06/24/18 06/24/18 06/25/18 17:10 20:29 02:00 WBC RBC Hgb Hct MCV MCH MCHC RDW Plt Count MPV Gran % Lymph % (Auto) [place] % (Auto) Eos % (Auto) Baso % (Auto) Gran # Lymph # (Auto) [place] # (Auto) Eos # (Auto) Baso # (Auto) Neutrophils % (Manual) Band Neutrophils % Lymphocytes % (Manual) Monocytes % (Manual) Platelet Evaluation PT 14.5 H INR 1.27 APTT 32.0 Sodium Potassium Chloride Carbon Dioxide Anion Gap BUN Creatinine Est GFR ( Amer) Est GFR (Non-Af Amer) Random Glucose Calcium Phosphorus Magnesium Total Bilirubin AST ALT Alkaline Phosphatase NT-Pro-B Natriuret Pep Total Protein Albumin Globulin Albumin/Globulin Ratio Urine Color Yellow Urine Appearance Clear Urine pH 6.0 Ur Specific [place] 1.020 Urine Protein Negative Urine Glucose (UA) Negative Urine Ketones Negative Urine Blood Negative Urine Nitrate Negative Urine Bilirubin Negative Urine Urobilinogen 0.2 Ur Leukocyte Esterase Negative Influenza Typ A,B (EIA) Negative for flu a/b 06/25/18 06/25/18 06:09 06:09 WBC 8.4 RBC 3.53 Hgb 11.5 L Hct 37.2 MCV 105.4 H MCH 32.6 MCHC 30.9 L RDW 16.5 H Plt Count 292 MPV 9.5 Gran % 94.9 H Lymph % (Auto) 3.7 L [place] % (Auto) 1.3 Eos % (Auto) 0.0 L Baso % (Auto) 0.1 Gran # 7.98 H Lymph # (Auto) 0.3 L [place] # (Auto) 0.1 Eos # (Auto) 0.0 Baso # (Auto) 0.01 Neutrophils % (Manual) 98 H Band Neutrophils % 1 Lymphocytes % (Manual) 1 L Monocytes % (Manual) TEST NOT PERFORMED Platelet Evaluation Normal PT INR APTT Sodium 137 Potassium 4.7 Chloride 103 Carbon Dioxide 28 Anion Gap 11 BUN 37 H Creatinine 0.9 Est GFR ( Amer) > 60 Est GFR (Non-Af Amer) > 60 Random Glucose 110 Calcium 9.4 Phosphorus Magnesium Total Bilirubin 0.7 AST 23 ALT 31 Alkaline Phosphatase 81 NT-Pro-B Natriuret Pep 48982 H Total Protein 6.3 Albumin 3.1 Globulin 3.1 Albumin/Globulin Ratio 1.0 L Urine Color Urine Appearance Urine pH Ur Specific [place] Urine Protein Urine Glucose (UA) Urine Ketones Urine Blood Urine Nitrate Urine Bilirubin Urine Urobilinogen Ur Leukocyte Esterase Influenza Typ A,B (EIA) Assessment & Plan - Assessment and Plan (Free Text) Plan: Ms Jason, immunocompromised 78 F, with PMHx Stage IV metastatic ovarian carcinoma, recent chemotherapy, renal carcincoma, small cell lung cancer c/o shortness of breath x last few weeks and was sent to ED by Dr Lind for cough, severe fatigue, dyspnea, treated with antibiotics and prednisone outpatient without improvement. A: R upper and lower lobe HCAP with large L pleural effusion, moderate R pleural effusion with loculation. SIRS (1/4), immunocompromised Hx micrococcus bacteremia (1 bottle), no vegetation per echo, removed the pheural catherter, treated with IV daptomycin/rocephin Stage IV metastatic ovarian carcinoma, mullerian origin, mets to lung, currently just finished gemcitabine and Avastin P: IR consult for Therepeutic Thoracentesis Follow procalc, sputum/blood/pleural fluid culture, legionella/strep Vancomycin, merem, doxycycline pending mrsa screen s/r/d/w Dr Sandoval <William Sandoval S - Last Filed: 06/25/18 15:59> Meds - Medications Medications: Current Medications Apixaban (Eliquis) 5 mg PO BID [facility]; Protocol Last Admin: 06/25/18 14:09 Dose: 5 mg Aspirin (Ecotrin) 81 mg PO MWF [facility] Last Admin: 06/25/18 14:09 Dose: 81 mg Cholecalciferol (Vitamin D) 1,000 intlu PO DAILY [facility] Last Admin: 06/25/18 10:18 Dose: 1,000 intlu Diltiazem HCl (Cardizem) 30 mg PO QID [facility] Last Admin: 06/25/18 14:08 Dose: 30 mg Doxycycline Hyclate (Doryx) 100 mg PO Q12 [facility]; Protocol Stop: 07/03/18 22:01 Last Admin: 06/25/18 10:16 Dose: 100 mg Furosemide (Lasix) 40 mg IVP DAILY [facility] Meropenem (Merrem Iv 1 Gm Premix) 1 gm in 50 mls @ 100 mls/hr IVPB Q8 [facility]; Protocol Stop: 07/03/18 22:01 Last Admin: 06/25/18 14:10 Dose: 100 mls/hr Vancomycin HCl (Vancomycin 1gm) 1 gm in 250 mls @ 167 mls/hr IVPB Q12H [facility]; Protocol Stop: 07/03/18 06:01 Last Admin: 06/25/18 05:11 Dose: 167 mls/hr Ipratropium [place] (Atrovent) 0.5 mg IH [id number] [facility] Last Admin: 06/25/18 13:00 Dose: Not Given Levalbuterol HCl (Xopenex) 0.63 mg IH [id number] [facility] Last Admin: 06/25/18 13:00 Dose: Not Given Levalbuterol HCl (Xopenex) 0.63 mg IH [id number] PRN PRN Reason: Shortness of Breath Last Admin: 06/25/18 06:15 Dose: 0.63 mg Magnesium Oxide (Mag-Ox) 400 mg PO DAILY [facility] Last Admin: 06/25/18 10:16 Dose: 400 mg Methylprednisolone (Solu-Medrol) 40 mg IVP Q8 [facility] Last Admin: 06/25/18 14:11 Dose: 40 mg Metoprolol Succinate (Toprol Xl) 100 mg PO BRK [facility] Last Admin: 06/25/18 10:17 Dose: 100 mg Montelukast Sodium (Singulair) 10 mg PO DAILY [facility] Last Admin: 06/25/18 10:17 Dose: 10 mg Oxycodone/Acetaminophen (Percocet 5/325 Mg Tab) 1 tab PO Q4H PRN PRN Reason: Pain, moderate (4-7) Stop: 06/27/18 20:15 Pyridoxine HCl (Vitamin B6 50 Mg Tab) 100 mg PO DAILY [facility] Last Admin: 06/25/18 10:18 Dose: 100 mg Silver Sulfadiazine (Silvadene 1% 25 Gm) 0 gm TP BID [facility] Zolpidem Tartrate (Ambien) 5 mg PO HS PRN; Protocol PRN Reason: Insomnia Last Admin: 06/24/18 21:56 Dose: 5 mg Results - Vital Signs Recent Vital Signs: Last Vital Signs Temp 97.4 F L 06/25/18 06:00 Pulse 84 06/25/18 10:17 Resp 20 06/25/18 06:00 BP 114/76 06/25/18 10:17 Pulse Ox 96 06/25/18 06:00 - Labs Result Diagrams: 06/25/18 06:09 06/25/18 06:09 Labs: Laboratory Results - last 24 hr 0106/24/18 06/24/18 16:26 16:26 16:26 WBC 9.7 RBC 3.44 L Hgb 11.3 L Hct 36.1 MCV 104.9 D MCH 32.8 MCHC 31.3 RDW 16.5 H Plt Count 297 MPV 9.6 Gran % 82.3 H Lymph % (Auto) 9.9 L [place] % (Auto) 7.1 H Eos % (Auto) 0.5 L Baso % (Auto) 0.2 Gran # 7.94 H Lymph # (Auto) 1.0 L [place] # (Auto) 0.7 H Eos # (Auto) 0.1 Baso # (Auto) 0.02 Neutrophils % (Manual) Band Neutrophils % Lymphocytes % (Manual) Monocytes % (Manual) Platelet Evaluation PT Cancelled INR Cancelled APTT Cancelled Sodium 139 Potassium 3.9 Chloride 113 H Carbon Dioxide 22 Anion Gap 8 L BUN 29 H Creatinine 0.6 L Est GFR ( Amer) > 60 Est GFR (Non-Af Amer) > 60 Random Glucose 59 L Calcium 6.7 L* Phosphorus 3.8 Magnesium 1.2 L Total Bilirubin 0.2 AST 21 ALT 31 Alkaline Phosphatase 59 NT-Pro-B Natriuret Pep Total Protein 4.6 L Albumin 2.2 L Globulin 2.4 Albumin/Globulin Ratio 0.9 L Procalcitonin Urine Color Urine Appearance Urine pH Ur Specific [place] Urine Protein Urine Glucose (UA) Urine Ketones Urine Blood Urine Nitrate Urine Bilirubin Urine Urobilinogen Ur Leukocyte Esterase Influenza Typ A,B (EIA) Ur L.pneumophila Ag 06/24/18 06/24/18 06/24/18 17:10 20:29 21:30 WBC RBC Hgb Hct MCV MCH MCHC RDW Plt Count MPV Gran % Lymph % (Auto) [place] % (Auto) Eos % (Auto) Baso % (Auto) Gran # Lymph # (Auto) [place] # (Auto) Eos # (Auto) Baso # (Auto) Neutrophils % (Manual) Band Neutrophils % Lymphocytes % (Manual) Monocytes % (Manual) Platelet Evaluation PT 14.5 H INR 1.27 APTT 32.0 Sodium Potassium Chloride Carbon Dioxide Anion Gap BUN Creatinine Est GFR ( Amer) Est GFR (Non-Af Amer) Random Glucose Calcium Phosphorus Magnesium Total Bilirubin AST ALT Alkaline Phosphatase NT-Pro-B Natriuret Pep Total Protein Albumin Globulin Albumin/Globulin Ratio Procalcitonin 0.43 Urine Color Urine Appearance Urine pH Ur Specific [place] Urine Protein Urine Glucose (UA) Urine Ketones Urine Blood Urine Nitrate Urine Bilirubin Urine Urobilinogen Ur Leukocyte Esterase Influenza Typ A,B (EIA) Negative for flu a/b Ur L.pneumophila Ag 06/25/18 06/25/18 06/25/18 02:00 02:00 06:09 WBC 8.4 RBC 3.53 Hgb 11.5 L Hct 37.2 MCV 105.4 H MCH 32.6 MCHC 30.9 L RDW 16.5 H Plt Count 292 MPV 9.5 Gran % 94.9 H Lymph % (Auto) 3.7 L [place] % (Auto) 1.3 Eos % (Auto) 0.0 L Baso % (Auto) 0.1 Gran # 7.98 H Lymph # (Auto) 0.3 L [place] # (Auto) 0.1 Eos # (Auto) 0.0 Baso # (Auto) 0.01 Neutrophils % (Manual) 98 H Band Neutrophils % 1 Lymphocytes % (Manual) 1 L Monocytes % (Manual) TEST NOT PERFORMED Platelet Evaluation Normal PT INR APTT Sodium Potassium Chloride Carbon Dioxide Anion Gap BUN Creatinine Est GFR ( Amer) Est GFR (Non-Af Amer) Random Glucose Calcium Phosphorus Magnesium Total Bilirubin AST ALT Alkaline Phosphatase NT-Pro-B Natriuret Pep Total Protein Albumin Globulin Albumin/Globulin Ratio Procalcitonin Urine Color Yellow Urine Appearance Clear Urine pH 6.0 Ur Specific [place] 1.020 Urine Protein Negative Urine Glucose (UA) Negative Urine Ketones Negative Urine Blood Negative Urine Nitrate Negative Urine Bilirubin Negative Urine Urobilinogen 0.2 Ur Leukocyte Esterase Negative Influenza Typ A,B (EIA) Ur L.pneumophila Ag Negative 06/25/18 06:09 WBC RBC Hgb Hct MCV MCH MCHC RDW Plt Count MPV Gran % Lymph % (Auto) [place] % (Auto) Eos % (Auto) Baso % (Auto) Gran # Lymph # (Auto) [place] # (Auto) Eos # (Auto) Baso # (Auto) Neutrophils % (Manual) Band Neutrophils % Lymphocytes % (Manual) Monocytes % (Manual) Platelet Evaluation PT INR APTT Sodium 137 Potassium 4.7 Chloride 103 Carbon Dioxide 28 Anion Gap 11 BUN 37 H Creatinine 0.9 Est GFR ( Amer) > 60 Est GFR (Non-Af Amer) > 60 Random Glucose 110 Calcium 9.4 Phosphorus Magnesium Total Bilirubin 0.7 AST 23 ALT 31 Alkaline Phosphatase 81 NT-Pro-B Natriuret Pep 95524 H Total Protein 6.3 Albumin 3.1 Globulin 3.1 Albumin/Globulin Ratio 1.0 L Procalcitonin Urine Color Urine Appearance Urine pH Ur Specific [place] Urine Protein Urine Glucose (UA) Urine Ketones Urine Blood Urine Nitrate Urine Bilirubin Urine Urobilinogen Ur Leukocyte Esterase Influenza Typ A,B (EIA) Ur L.pneumophila Ag Assessment & Plan - Assessment and Plan (Free Text) Plan: Infectious diseases Attending Physician Attestation Patient seen and examined, discussed with medical esthetician. I have reviewed the patient's history of present illness, past medical, social, personal and family histories, pertinent physical exam findings, course so far in this hospital admission, pertinent laboratory and imaging results. I agree with the above findings, assessment and plan. In addition, started IV Vancomycin, Merrem and Doxycycline for patient with right sided effusion with probable HCAP. Recommend thoracentesis for pleural fluid analysis and cultures. Overall prognosis is poor in this patient with lung and ovarian cancer.
--- NOTE | 2018-06-25 09:30 | CT ---
Date of service: 06/25/2018 CT chest without IV contrast Indication: dyspnea Technique: Contiguous axial images were obtained through the chest without intravenous contrast enhancement. Sagittal and coronal reconstructions were generated and reviewed. This CT exam was performed using 1 or more of the following dose reduction techniques: Automated exposure control, adjustment of the MAA and/or kV according to patient size, and/or use of iterative reconstruction technique. Radiation dose (DLP): 155.63 MGy-cm. Comparison: CT chest without contrast performed 05/20/18 Findings: Right IJ approach central venous catheter extends to the cavoatrial junction. Cardiomegaly. Coronary artery calcifications. Dense atherosclerotic calcifications of the aorta. Small pericardial effusion. Aneurysmal dilatation of the aorta; ascending aorta measures approximately 5.0 cm with the descending aorta measures approximately 4.1 cm Large left and moderate-sized right pleural effusion; right-sided pleural effusion which appears partially loculated. Right upper and lower lobe consolidations. Limited visualization of the noncontrast upper abdomen demonstrates evidence of subcapsular fluid measuring approximately 2.7 cm in depth and causing mass effect on the liver. Perisplenic ascites. Degenerative changes. Osseous demineralization. Impression: Right IJ approach central venous catheter extends to the cavoatrial junction. Cardiomegaly. Coronary artery calcifications. Dense atherosclerotic calcifications of the aorta. Small pericardial effusion. Aneurysmal dilatation of the aorta; ascending aorta measures approximately 5.0 cm with the descending aorta measures approximately 4.1 cm Large left and moderate-sized right pleural effusion; right-sided pleural effusion with evidence of loculations. Right upper and lower lobe consolidations. Overall worsened aeration since prior CT performed 05/20/18. Subcapsular fluid measures approximately 2.7 cm in depth with mass effect on the liver. Perisplenic ascites.
[2018-06-25] MEDS: Magnesium Oxide 400 mg Tab UD PO SCH (10:16)
[2018-06-25] MEDS: Metoprolol Succinate 100 mg XL Tab PO SCH (10:17)
[2018-06-25] MEDS: Cholecalciferol 1,000 INTLU TAB PO SCH (10:18)
--- NOTE | 2018-06-25 13:40 | PN ---
DATE: 06/25/2018 PULMONARY PROGRESS NOTE REFERRING PHYSICIAN: Luis Zafar MD SUBJECTIVE: The patient is lying in bed, in no acute distress. Nursing staff reports that the patient desaturates at night. The patient reports feeling congested, cough. Denies shortness of breath at this time. No headache, rhinitis, chest pain, abdominal pain, nausea, vomiting, diarrhea, leg pain, leg swelling reported. OBJECTIVE: GENERAL: No acute distress. VITAL SIGNS: Blood pressure 114/76, pulse 84, temperature 97.4, oxygen saturation 96%. HEENT: Moist mucous membranes. NECK: Supple. No JVD. LUNGS: Bilateral rhonchi and crackles. CARDIOVASCULAR: S1, S2 audible. ABDOMEN: Soft, nontender. No distension. No organomegaly. EXTREMITIES: Trace lower extremity edema, right leg nonhealing ulcer. NEUROLOGIC: Awake, alert, verbal, follows commands. MEDICATIONS: Reviewed. Eliquis 5 mg twice a day, aspirin 81 mg Thursday, Thursday, Thursday; vitamin D 1000 units daily, Cardizem 30 mg 4 times a day, doxycycline 100 mg every 12 hours, Atrovent 0.5 mg inhalation every 6 hours, Xopenex 0.63 mg inhalation every 4 hours p.r.n., Xopenex 0.63 mg inhalation every 6 hours, magnesium oxide 400 mg daily, meropenem 1 g every 8 hours, Solu-Medrol 40 mg every 8 hours, metoprolol succinate 100 mg at breakfast, Singulair 10 mg daily, percocet 5/325 mg every 4 hours p.r.n., vitamin B6 100 mg daily, vancomycin 1 g every 12 hours, Ambien 5 mg at bedtime p.r.n. LABORATORY DATA: Reviewed. WBC 8.4, RBC 3.53, hemoglobin 11.5, hematocrit 37.2, platelets 292. Sodium 137, potassium 4.7, chloride 103, carbon dioxide 28, anion gap 11, BUN 37, creatinine 0.9. GFR greater than 60, random glucose 110, calcium 9.4, total bilirubin 0.7. AST 23, ALT 31, alkaline phosphatase 81, proBNP 12,400, total protein 6.3, albumin 3.1, globulin 3.1, albumin-globulin ratio 1.0. Chest CT showed cardiomegaly, coronary artery calcification, small pericardial effusion, aneurysmal dilatation of the aorta, large left and moderate sized right-sided pleural effusion with evidence of loculations, right upper and lower lobe consolidations, subcapsular fluid measures approximately 2.7 cm in depth with mass effect on the liver, perisplenic ascites. IMPRESSION AND PLAN: Ovarian cancer, pleural effusion, history of renal cell carcinoma requiring nephrectomy, atrial fibrillation, chronic lung disease, small cell lung cancer, pulmonary hypertension. Echocardiogram from 05/2018 reviewed shows ejection fraction 45-50, right ventricular systolic pressure 49. We will start the patient on Lasix 40 mg daily. Continue inhaled bronchodilators, antibiotics, gastric prophylaxis, deep venous thrombosis prophylaxis. Continue steroids. Follow up with labs in the morning. We will place order to titrate oxygen via nasal cannula to pulse ox 90% or greater. The patient was seen and examined with Dr. Love. Discussed assessment and plan as described above. Thank you for this consult. We will follow with you. Casey Galvan APN Concepcion Love MD PERLITA
--- NOTE | 2018-06-25 15:52 | RAD ---
Date of service: 06/25/2018 HISTORY: lt thora COMPARISON: 06/24/2018 TECHNIQUE: Chest PA and lateral FINDINGS: LUNGS: Extensive infiltrate in the right lung especially the right lower lobe PLEURA: Improvement in left-sided pleural effusion. No pneumothorax CARDIOVASCULAR: Aortic tortuosity and calcification Mild cardiomegaly no pulmonary vascular congestion. OSSEOUS STRUCTURES: No significant abnormalities. VISUALIZED UPPER ABDOMEN: Normal. OTHER FINDINGS: None. IMPRESSION: Improvement in left-sided pleural effusion. No pneumothorax
[2018-06-25] MEDS: Silver Sulfadiazine 1% Cream (25 gm) TP SCH (17:43)
--- NOTE | 2018-06-25 17:57 | US ---
PROCEDURE: Ultrasound guided right thoracentesis. CLINICAL HISTORY: Metastatic ovarian CA. History lung CA. Previous malignant right pleural effusion with Aspira catheter. New enlarging left pleural effusion. Needs thoracentesis PHYSICIAN(S): Mario Yee MD. TECHNIQUE: The relative risks and indications of the procedure were explained to the patient and consent obtained. The patient was placed in a sitting position on the stretcher and sonography of both pleura from a posterior approach performed. This revealed stable small right pleural effusion and a moderate sized left pleural effusion A left posterolateral intercostal approach was selected and the area prepped and draped usual sterile fashion. 1% Xylocaine was used to anesthetize the skin and soft tissues. A 7 Korean thoracentesis catheter was trocared into the left pleural cavity and 850 cc of mildly turbid yellow fluid aspirated. A cytology specimen was sent. IMPRESSION: 1. Ultrasound guided left thoracentesis. 850 cc of mildly turbid yellow fluid was removed. A cytology specimen was sent
--- NOTE | 2018-06-25 18:27 | PN ---
DATE: 06/25/2018 This is [facility] visit on the medical floor. For Dr. Lind. SUBJECTIVE: The patient is a 78-year-old female, seen sitting up in the chair with the patient now having her lunch, reporting that her shortness breath has significantly improved after diuresis, was achieved as per Cardiology and pot liner's recommendations with the patient's POREX catheter having been taken out weeks prior due to possible infected catheter with the consideration for thoracentesis should be indicated, however, after the conversation with Dr. Love and Dr. Calles it was considered possibly wiser to attempt medical therapy including diuresis at this time with thoracentesis to be done should the medical therapy not be effective. Otherwise, the patient is reporting that she feels better today with less shortness of breath compared to her admission status. The patient is known to have small cell CA of the lung history along with metastatic ovarian cancer which is now involving her lung with metastasis. PHYSICAL EXAMINATION: VITAL SIGNS: Temperature 97.4, pulse 84, respirations 20, blood pressure 114/76. HEENT: Unremarkable. Tongue is dry. NECK: Supple. LUNGS: Scattered rhonchi, decreased breath sounds on the right. HEART: Regular rate. ABDOMEN: Soft and nontender. EXTREMITIES: No edema. NEUROLOGIC: Awake and alert. SKIN: Warm and dry. LABORATORY DATA: The patient's labs were done. White blood cell count of 8.4, hemoglobin 11.5, hematocrit of 37.2, platelet count of 292,000. Metabolic panel showing a BUN of 37 with a normal creatinine of 0.9, with the calcium now corrected to 9.4. Brain natriuretic peptide of 12,400. Procalcitonin 0.4. Legionella and influenza titers were negative. The patient did a have a CT scan of her chest done earlier today was read as simple catheter right internal jugular extends to the cavoatrial junction, cardiomegaly, coronary artery calcification, atherosclerotic calcifications of the aorta, small pericardial effusion, aneurysmal dilatation of the aorta, ascending aorta measures approximately 5 cm with descending aorta measuring 4.1 cm, large left and moderate size right pleural effusions, right-sided pleural effusions with dense loculations, right upper and lower lobe consolidations over a worsened aeration since prior CT performed on 05/20/2018, subcapsular fluid measures 2.7 cm in depth with mass effect on the liver, perisplenic ascites. 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 PLAN: For this patient is aggressive diuresis with consideration for thoracentesis should be indicated at a future time. Also should be noted that the patient has had sacral decubitus for which we are at present treating with Silvadene cream with good effect at present. We will monitor clinically and with labs. This is a complex patient with a comprehensive medically necessary and appropriate visit carried out in excess of 20 minutes with the patient's questions answered to her satisfaction. Luis Zafar MD
--- NOTE | 2018-06-25 20:01 | CON ---
DATE: 06/25/2018 REQUESTING PHYSICIAN: Dr. Zafar. REASON FOR CONSULTATION: Dyspnea. HISTORY OF PRESENT ILLNESS: This is a 78-year-old woman who is well known to me with a history of metastatic ovarian cancer admitted with worsening dyspnea. She has known recurrent malignant pleural effusions for which she had a PleurX catheter placed several months ago; however, this apparently became occluded and was removed and over the past several days, she has had worsening dyspnea and presents to the emergency room. She does have known coronary artery disease with prior myocardial infarction, has a history of mild LV dysfunction as well. She denies any recent chest pain. PAST MEDICAL HISTORY: Notable for renal cell carcinoma with lung metastasis as well. She has undergone a prior right nephrectomy. She also has a longstanding history of rheumatoid arthritis, hemochromatosis, prior cholecystectomy, peripheral arterial disease and cerebrovascular disease, as well as prior abdominal aortic aneurysm. CURRENT MEDICATIONS: Include Atrovent, Cardizem 30 mg q.i.d., doxycycline, Ecotrin, Eliquis 5 mg b.i.d., Lasix 40 mg IV daily, magnesium, meropenem, Percocet, Singulair, Solu-Medrol, Toprol-XL 100 mg daily, vancomycin, and Xopenex. OBJECTIVE: GENERAL: She is an elderly woman appears comfortable at rest. VITAL SIGNS: Her blood pressure is 114/76 with pulse of 90 and regular, respirations are 16. She is afebrile. HEENT: No JVD. CHEST: Diminished breath sounds at both bases. HEART: PMI displaced laterally with systolic murmur heard at the base. ABDOMEN: Soft, nontender, normoactive bowel sounds. EXTREMITIES: No edema. DIAGNOSTIC DATA: Potassium is 4.7, BUN and creatinine 37 and 0.9, white count 8.4, hemoglobin and hematocrit 11.5 and 37.2 with platelet count 292,000. BNP is 12,400. Electrocardiogram reveals atrial fibrillation with right bundle branch block and secondary ST-T changes. IMPRESSION: 1. Dyspnea appears secondary to large bilateral effusions likely recurrent malignant effusions. 2. Chronic atrial fibrillation with controlled rate. 3. Coronary artery disease status post remote PCI clinically stable. 4. Mild left ventricular dysfunction. 5. Rest of problems as noted. RECOMMENDATIONS: From a cardiac standpoint, she appears relatively stable, appears her dyspnea is likely due to recurrence of pleural effusions and thoracentesis and/or PleurX catheter replacement appears appropriate. No additional cardiac workup is planned at the moment. We will be happy to see as needed. Jonel Calles MD MTDMaureen
[2018-06-26] MEDS: Ipratropium 0.02% Inhal Soln (0.5 mg/2.5 ml) UD IH SCH ×4 (03:00→19:34)
[2018-06-26] MEDS: Levalbuterol 0.63 MG/3 ML Inhal Soln UD IH SCH ×4 (03:00→19:34)
[2018-06-26] MEDS: Meropenem IV 1 gm in NS 1 GM/50 ML BAG IVPB SCH ×3 (05:48→21:40)
[2018-06-26] MEDS: MethylPREDNISolone 40 mg Vial IVP SCH ×3 (05:48→21:41)
[2018-06-26 06:15] LABS: GRAN # 8.88 (1.4-6.5); GRAN % 92.7 % (50.0-68.0); HEMOGLOBIN 10.2 g/dL (12.0-16.0); LYMPH # 0.4 (1.2-3.4); LYMPH % 4.3 % (22.0-35.0); MEAN CELL VOLUME 104.5 fl (80.0-105.0); MEAN CORPUSCULAR HEMOGLOBIN 32.7 pg (25.0-35.0); MEAN CORPUSCULAR HGB CONC 31.3 g/dl (31.0-37.0); MEAN PLATELET VOLUME 9.3 fl (7.0-11.0); MONO # 0.3 (0.1-0.6); RBC 3.12 10^6/uL (3.5-6.1); RED CELL DISTRIBUTION WIDTH 16.2 % (11.5-14.5); WHITE BLOOD COUNT 9.6 10^3/uL (4.5-11.0)
[2018-06-26 06:29] LABS: ALB/GLOB RATIO 1.1 (1.1-1.8); ALBUMIN 2.9 g/dL (3.0-4.8); CALCIUM 8.7 mg/dL (8.4-10.5)
[2018-06-26] MEDS: Vancomycin 1gm in NS 250ml 1 GM/250 ML BAG IVPB SCH (07:16)
[2018-06-26] MEDS: Silver Sulfadiazine 1% Cream (25 gm) TP SCH ×2 (12:14→18:23)
[2018-06-26] MEDS: Magnesium Oxide 400 mg Tab UD PO SCH (12:14)
[2018-06-26] MEDS: Cholecalciferol 1,000 INTLU TAB PO SCH (12:15)
[2018-06-26] MEDS: Metoprolol Succinate 100 mg XL Tab PO SCH (16:17)
--- NOTE | 2018-06-26 16:56 | PN ---
DATE: 06/26/2018 PULMONARY PROGRESS NOTE REFERRING PHYSICIAN: Luis Zafar MD SUBJECTIVE: The patient is sitting up in chair in room, no acute distress. No overnight events reported. The patient had thoracentesis done yesterday with 850 mL of fluid removed. Cytology specimen was sent. The patient reports having cough, but unable to expectorate sputum. Reports improvement in shortness of breath. No headache, rhinitis, chest pain, abdominal pain, nausea, vomiting, diarrhea, leg pain or leg swelling reported. OBJECTIVE: GENERAL: No acute distress. VITAL SIGNS: Blood pressure 106/65, temperature 97.6, oxygen saturation 93%, pulse rate 69. HEENT: Moist mucous membranes. NECK: Supple. No JVD. LUNGS: Few crackles and rhonchi bilaterally. CARDIOVASCULAR: S1, S2 audible. ABDOMEN: Soft, nontender. No distension. No organomegaly. EXTREMITIES: Trace bilateral lower extremity edema. Right leg nonhealing ulcer. NEUROLOGIC: Awake, alert, verbal, follows commands. MEDICATIONS: Reviewed. Eliquis 5 mg twice a day, aspirin 81 mg Thursday, Thursday, Thursday, vitamin D 1000 units daily, Cardizem 30 mg 4 times a day, doxycycline 100 mg every 12 hours, Lasix 40 mg IV push daily, Atrovent 0.5 mg inhalation every 6 hours, Xopenex 0.63 mg inhalation every 4 hours p.r.n., Xopenex 0.63 mg inhalation every 6 hours, magnesium oxide 400 mg daily, meropenem 1 g every 8 hours, Solu-Medrol 40 mg IV push every 8 hours, metoprolol succinate 100 mg at breakfast, Singulair 10 mg daily, Percocet 5/325 mg 1 tab every 4 hours p.r.n. moderate pain, vitamin B 600 mg daily, Silvadene topically twice a day to affected area, vancomycin 1 g every 12 hours, Ambien 5 mg p.o. at bedtime p.r.n. LABORATORY DATA: Reviewed. WBC 9.6, RBC 3.12, hemoglobin 10.2, hematocrit 32.6, platelets 263. Sodium 137, potassium 5.0, chloride 102, carbon dioxide 31, anion gap 10, BUN 50, creatinine 1.2, GFR 43, random glucose 148, calcium 8.7, total bilirubin 0.2. AST 26, ALT 34, alkaline phosphatase 70, lactate dehydrogenase 457, total protein 5.6, albumin 2.6, globulin 2.7, albumin-globulin ratio 1.1. Procalcitonin 0.43. MRSA culture of the nares final negative. Blood culture preliminary, no growth after 24 hours. Chest x-ray showed improvement in left-sided pleural effusion. No pneumothorax. IMPRESSION AND PLAN: Ovarian cancer, pleural effusion, history of renal cell carcinoma requiring nephrectomy, atrial fibrillation, chronic lung disease, small cell lung cancer, pulmonary hypertension. Continue diuretics, continue inhaled bronchodilators, antibiotics, gastric prophylaxis, deep venous thrombosis prophylaxis, continue steroids. We will start the patient on Mucomyst inhaler. The patient was seen and examined with Dr. Love. Discussed assessment and plan as described above. Thank you for this consult. We will followup with you. Casey Galvan APN Concepcion Love MD
[2018-06-26] MEDS: Acetylcysteine 20% Inhal Soln (4ml) IH SCH (19:34)
--- NOTE | 2018-06-26 23:23 | PN ---
DATE: 06/26/2018 SUBJECTIVE: The patient is in bed, in no acute distress. PHYSICAL EXAMINATION: VITAL SIGNS: Temperature is 98, blood pressure is 112/60, respiratory rate 19. HEENT: Unremarkable. NECK: Supple. LUNGS: Decreased breath sounds. HEART: Normal S1 and S2. ABDOMEN: Soft. LABORATORY EXAMINATION: Reveals a white count of 9.6, hemoglobin of 10, platelets of 263. BUN of 50, creatinine of 1.2, procalcitonin is 0.43. Urinalysis is noted. Serology is negative. Microbiology: Blood cultures negative. cultures are not detected. Review of orders revealed that the patient to be on p.o. doxycycline, meropenem, and vancomycin. The patient also had a CAT scan of the chest with evidence of loculation and consolidation. Operative note on thoracentesis by Dr. Mario Yee is reviewed. ASSESSMENT AND PLAN: This is a 78-year-old with stage IV metastatic ovarian cancer, recent chemotherapy, renal carcinoma, small-cell lung cancer with healthcare-associated pneumonia with negative blood cultures, negative methicillin-resistant Staphylococcus aureus screen. We will discontinue the vancomycin, continue doxycycline day #3 and meropenem day #3. We would complete 4 to 7 days. We will discontinue the vancomycin, and we will follow with you. Reese Bradford MD
[2018-06-27] MEDS: Ipratropium 0.02% Inhal Soln (0.5 mg/2.5 ml) UD IH SCH ×4 (01:28→19:53)
[2018-06-27] MEDS: Meropenem IV 1 gm in NS 1 GM/50 ML BAG IVPB SCH ×3 (05:45→21:33)
[2018-06-27] MEDS: MethylPREDNISolone 40 mg Vial IVP SCH ×3 (05:46→21:31)
[2018-06-27] MEDS: Levalbuterol 0.63 MG/3 ML Inhal Soln UD IH SCH ×3 (08:21→19:52)
[2018-06-27] MEDS: Acetylcysteine 20% Inhal Soln (4ml) IH SCH ×3 (08:21→19:53)
[2018-06-27] MEDS: Metoprolol Succinate 100 mg XL Tab PO SCH (08:23)
[2018-06-27] MEDS: Magnesium Oxide 400 mg Tab UD PO SCH (09:26)
[2018-06-27] MEDS: Silver Sulfadiazine 1% Cream (25 gm) TP SCH ×2 (09:30→18:18)
--- NOTE | 2018-06-27 09:30 | PN ---
DATE: 06/27/2018 PULMONARY PROGRESS NOTE REFERRING PHYSICIAN: Luis Zafar MD SUBJECTIVE: The patient is lying in bed. No acute distress. No overnight events reported. The patient reports cough, so unable to expectorate the sputum at this time, but feel as though it is loosening up. Improvement in shortness of breath. No headache, rhinitis, chest pain, abdominal pain, nausea, vomiting, diarrhea, leg pain or leg swelling reported. OBJECTIVE: GENERAL: No acute distress. VITAL SIGNS: Blood pressure 121/77, pulse 106, temperature 98 and oxygen saturation 98%. HEENT: Moist mucous membranes. NECK: Supple. No JVD. LUNGS: Few crackles and rhonchi bilaterally. CARDIOVASCULAR: S1 and S2, audible. ABDOMEN: Soft and nontender. No distension. No organomegaly. EXTREMITIES: Trace bilateral lower extremity edema. Right leg nonhealing ulcer. NEUROLOGIC: Awake, alert, and verbal. Follows commands. MEDICATIONS: Reviewed. Mucomyst 4 mL inhalation every 6 hours, Eliquis 5 mg twice a day, aspirin 81 mg Thursday, Thursday and Thursday, vitamin D 1000 units daily, Cardizem 30 mg 4 times a day, doxycycline 100 mg every 12 hours, Atrovent 0.5 mg every 6 hours, Xopenex 0.63 mg every 4 hours p.r.n., Xopenex 0.63 mg every 6 hours, magnesium oxide 400 mg daily, meropenem 1 g every 8 hours, Solu-Medrol 40 mg every 8 hours, metoprolol succinate 100 mg at breakfast, Singulair 10 mg daily, Percocet 5/325 mg one tab every 4 hours p.r.n., vitamin D 600 mg daily, Silvadene topically twice a day to affected area and Ambien 5 mg p.o. at bedtime p.r.n. LABORATORY DATA: Reviewed. IMPRESSION AND PLAN: Ovarian cancer, pleural effusion, history of renal cell carcinoma requiring nephrectomy, atrial fibrillation, chronic lung disease, small cell lung cancer, pulmonary hypertension status post thoracentesis. Continue steroids. Continue inhaled bronchodilators, antibiotics, gastric prophylaxis, deep venous thrombosis prophylaxis and continue diuretics. Head of bed elevated at 45 degrees. The patient will need full pulmonary function test as outpatient. This patient was seen and examined with Dr. Love. Discussed assessment and plan as described above. Thank you for this consult. We will follow with you. Casey Galvan APN Concepcion Love MD
[2018-06-27] MEDS: Cholecalciferol 1,000 INTLU TAB PO SCH (09:31)
--- NOTE | 2018-06-27 13:48 | PN ---
DATE: 06/27/2018 SUBJECTIVE: The patient is seen in room 368, bed 2. No fevers, no chills. PHYSICAL EXAMINATION: VITAL SIGNS: Temperature is 98, blood pressure is 103/60, respiratory rate of 21, heart rate of 106. HEENT: Unremarkable. NECK: Supple. LUNGS: Decreased breath sounds. HEART: Normal, S1 and S2. ABDOMEN: Soft. LABORATORY DATA: Examination reveals blood cultures are negative. Nares, MRSA screen . The patient had a CAT scan of the chest. ASSESSMENT AND PLAN: A 78-year-old female who was seen earlier today in 368, bed 2, with a history of stage IV metastatic ovarian cancer, recent chemotherapy, history of renal carcinoma, history of small-cell lung cancer with healthcare-associated pneumonia with negative blood cultures and negative methicillin-resistant Staphylococcus aureus screen, on doxycycline and meropenem, today is day #4, would complete four to seven days. With negative procalcitonin, the patient is improving. Today is day #4 of four to seven days on meropenem and doxycycline. The patient appears to be improving. The patient is also on Solu-Medrol. Reese Bradford MD
--- NOTE | 2018-06-27 20:31 | CP.PCM.PN ---
Subjective - Date & Time of Evaluation Date of Evaluation: 06/26/18 Time of Evaluation: 19:00 - Subjective Subjective: No acute issues; breathing better; still notes some pedal edema ROS: 12 point ROS otherwise negative pain: denies Objective - Vital Signs/Intake and Output Vital Signs (last 24 hours): Temp Pulse Resp BP Pulse Ox 98.6 F 82 18 120/78 94 L 06/27/18 16:26 06/27/18 18:18 06/27/18 16:26 06/27/18 18:18 06/27/18 16:26 - Medications Medications: Current Medications Acetylcysteine (Acetylcysteine 20%) 4 ml IH [id number] [facility] Last Admin: 06/27/18 19:53 Dose: 4 ml Apixaban (Eliquis) 5 mg PO BID [facility]; Protocol Last Admin: 06/27/18 18:18 Dose: 5 mg Aspirin (Ecotrin) 81 mg PO MWF [facility] Last Admin: 06/25/18 14:09 Dose: 81 mg Cholecalciferol (Vitamin D) 1,000 intlu PO DAILY [facility] Last Admin: 06/27/18 09:31 Dose: 1,000 intlu Diltiazem HCl (Cardizem) 30 mg PO QID [facility] Last Admin: 06/27/18 18:18 Dose: 30 mg Doxycycline Hyclate (Doryx) 100 mg PO Q12 [facility]; Protocol Stop: 07/03/18 22:01 Last Admin: 06/27/18 09:29 Dose: 100 mg Meropenem (Merrem Iv 1 Gm Premix) 1 gm in 50 mls @ 100 mls/hr IVPB Q8 [facility]; Protocol Stop: 07/03/18 22:01 Last Admin: 06/27/18 14:21 Dose: 100 mls/hr Ipratropium [place] (Atrovent) 0.5 mg IH [id number] [facility] Last Admin: 06/27/18 19:53 Dose: 0.5 mg Levalbuterol HCl (Xopenex) 0.63 mg IH [id number] [facility] Last Admin: 06/27/18 19:52 Dose: 0.63 mg Levalbuterol HCl (Xopenex) 0.63 mg IH [id number] PRN PRN Reason: Shortness of Breath Last Admin: 06/25/18 06:15 Dose: 0.63 mg Magnesium Oxide (Mag-Ox) 400 mg PO DAILY [facility] Last Admin: 06/27/18 09:26 Dose: 400 mg Methylprednisolone (Solu-Medrol) 40 mg IVP Q8 [facility] Last Admin: 06/27/18 14:24 Dose: 40 mg Metoprolol Succinate (Toprol Xl) 100 mg PO BRK [facility] Last Admin: 06/27/18 08:23 Dose: 100 mg Montelukast Sodium (Singulair) 10 mg PO DAILY [facility] Last Admin: 06/27/18 09:26 Dose: 10 mg Pyridoxine HCl (Vitamin B6 50 Mg Tab) 100 mg PO DAILY [facility] Last Admin: 06/27/18 09:27 Dose: 100 mg Silver Sulfadiazine (Silvadene 1% 25 Gm) 0 gm TP BID [facility] Last Admin: 06/27/18 18:18 Dose: 1 gm Zolpidem Tartrate (Ambien) 5 mg PO HS PRN; Protocol PRN Reason: Insomnia Last Admin: 06/26/18 21:41 Dose: 5 mg - Labs Labs: 06/26/18 06:00 06/26/18 06:00 PT 14.5 SECONDS (9.4-12.5) H 06/24/18 20:29 INR 1.27 06/24/18 20:29 APTT 32.0 Seconds (25.1-36.5) 06/24/18 20:29 - Constitutional Appears: Well - Respiratory Exam Respiratory Exam: Clear to Ausculation Bilateral, NORMAL BREATHING PATTERN - Cardiovascular Exam Cardiovascular Exam: REGULAR RHYTHM, +S1, +S2. absent: Murmur - GI/Abdominal Exam GI & Abdominal Exam: Soft, Normal Bowel Sounds. absent: Tenderness - Extremities Exam Extremities Exam: Full ROM, Normal Capillary Refill, Normal Inspection. absent: Joint Swelling, Pedal Edema Assessment and Plan - Assessment and Plan (Free Text) Assessment: Ms. Jason michelle 78 y/o woman with pmhx signfiicant for RCC, NSCLC; and stage IV ovarian cancer with pulmonary mets c/b pulmonary effusions whos has been hospitalized with COPD exacerbation in setting of possible HCAP and recurrently pleural effusions s/p thoracentesis. Patient appears euvolemic on exam will trend creatinine and consider restarting PO diuresis; Continue po abx regimen per ID and steroid regimen per pulmonary. PT evaluation on Thursday Nehemiah Lind MD Oncology
--- NOTE | 2018-06-27 20:41 | CP.PCM.PN ---
Subjective - Date & Time of Evaluation Date of Evaluation: 06/27/18 Time of Evaluation: 21:00 - Subjective Subjective: No acute issues. Breathing continues to be good ROS: 12 ROS negative otherwise Pain: denies Objective - Vital Signs/Intake and Output Vital Signs (last 24 hours): Temp Pulse Resp BP Pulse Ox 98.6 F 82 18 120/78 94 L 06/27/18 16:26 06/27/18 18:18 06/27/18 16:26 06/27/18 18:18 06/27/18 16:26 - Medications Medications: Current Medications Acetylcysteine (Acetylcysteine 20%) 4 ml IH [id number] [facility] Last Admin: 06/27/18 19:53 Dose: 4 ml Apixaban (Eliquis) 5 mg PO BID [facility]; Protocol Last Admin: 06/27/18 18:18 Dose: 5 mg Aspirin (Ecotrin) 81 mg PO MWF [facility] Last Admin: 06/25/18 14:09 Dose: 81 mg Cholecalciferol (Vitamin D) 1,000 intlu PO DAILY [facility] Last Admin: 06/27/18 09:31 Dose: 1,000 intlu Diltiazem HCl (Cardizem) 30 mg PO QID [facility] Last Admin: 06/27/18 18:18 Dose: 30 mg Doxycycline Hyclate (Doryx) 100 mg PO Q12 [facility]; Protocol Stop: 07/03/18 22:01 Last Admin: 06/27/18 09:29 Dose: 100 mg Meropenem (Merrem Iv 1 Gm Premix) 1 gm in 50 mls @ 100 mls/hr IVPB Q8 [facility]; Protocol Stop: 07/03/18 22:01 Last Admin: 06/27/18 14:21 Dose: 100 mls/hr Ipratropium [place] (Atrovent) 0.5 mg IH [id number] [facility] Last Admin: 06/27/18 19:53 Dose: 0.5 mg Levalbuterol HCl (Xopenex) 0.63 mg IH [id number] [facility] Last Admin: 06/27/18 19:52 Dose: 0.63 mg Levalbuterol HCl (Xopenex) 0.63 mg IH [id number] PRN PRN Reason: Shortness of Breath Last Admin: 06/25/18 06:15 Dose: 0.63 mg Magnesium Oxide (Mag-Ox) 400 mg PO DAILY [facility] Last Admin: 06/27/18 09:26 Dose: 400 mg Methylprednisolone (Solu-Medrol) 40 mg IVP Q8 [facility] Last Admin: 06/27/18 14:24 Dose: 40 mg Metoprolol Succinate (Toprol Xl) 100 mg PO BRK [facility] Last Admin: 06/27/18 08:23 Dose: 100 mg Montelukast Sodium (Singulair) 10 mg PO DAILY [facility] Last Admin: 06/27/18 09:26 Dose: 10 mg Pyridoxine HCl (Vitamin B6 50 Mg Tab) 100 mg PO DAILY [facility] Last Admin: 06/27/18 09:27 Dose: 100 mg Silver Sulfadiazine (Silvadene 1% 25 Gm) 0 gm TP BID [facility] Last Admin: 06/27/18 18:18 Dose: 1 gm Zolpidem Tartrate (Ambien) 5 mg PO HS PRN; Protocol PRN Reason: Insomnia Last Admin: 06/26/18 21:41 Dose: 5 mg - Labs Labs: 06/26/18 06:00 06/26/18 06:00 PT 14.5 SECONDS (9.4-12.5) H 06/24/18 20:29 INR 1.27 06/24/18 20:29 APTT 32.0 Seconds (25.1-36.5) 06/24/18 20:29 - Constitutional Appears: Non-toxic - Respiratory Exam Respiratory Exam: Clear to Ausculation Bilateral, NORMAL BREATHING PATTERN - Cardiovascular Exam Cardiovascular Exam: REGULAR RHYTHM, +S1, +S2. absent: Murmur - GI/Abdominal Exam GI & Abdominal Exam: Soft, Normal Bowel Sounds. absent: Tenderness - Extremities Exam Extremities Exam: Pedal Edema Assessment and Plan - Assessment and Plan (Free Text) Assessment: Ms. Jason michelle 78 y/o woman with pmhx signfiicant for RCC, NSCLC; and stage IV ovarian cancer with pulmonary mets c/b pulmonary effusions whos has been hospitalized with COPD exacerbation in setting of possible HCAP and recurrently pleural effusions s/p thoracentesis -continue abx per ID for empiric treatment of HCAP -f/u pleural fluid cytology -continue steroid taper per pulmonary -PT consultation tomorrow Neehmiah Lind MD Oncology
[2018-06-28] MEDS: MethylPREDNISolone 40 mg Vial IVP SCH ×2 (05:25→21:47)
[2018-06-28] MEDS: Meropenem IV 1 gm in NS 1 GM/50 ML BAG IVPB SCH ×3 (05:25→21:46)
[2018-06-28 05:41] LABS: GRAN # 9.12 (1.4-6.5); HEMOGLOBIN 10.8 g/dL (12.0-16.0); LYMPH # 0.5 (1.2-3.4); LYMPH % 5.1 % (22.0-35.0); MEAN CELL VOLUME 106.8 fl (80.0-105.0); MEAN CORPUSCULAR HEMOGLOBIN 33.2 pg (25.0-35.0); MEAN CORPUSCULAR HGB CONC 31.1 g/dl (31.0-37.0); MEAN PLATELET VOLUME 9.4 fl (7.0-11.0); MONO # 0.2 (0.1-0.6); MONO % 1.9 % (1.0-6.0); RBC 3.25 10^6/uL (3.5-6.1); RED CELL DISTRIBUTION WIDTH 16.1 % (11.5-14.5); WHITE BLOOD COUNT 9.8 10^3/uL (4.5-11.0)
[2018-06-28 05:53] LABS: ALB/GLOB RATIO 1.1 (1.1-1.8); ALBUMIN 3.1 g/dL (3.0-4.8); ALT/SGPT 63 U/L (7-56); AST/SGOT 57 U/L (14-36); BLOOD UREA NITROGEN 49 mg/dL (7-21); CALCIUM 9.6 mg/dL (8.4-10.5); GFR NON-AFRICAN AMERICAN > 60
[2018-06-28] MEDS: Ipratropium 0.02% Inhal Soln (0.5 mg/2.5 ml) UD IH SCH ×3 (08:29→20:26)
[2018-06-28] MEDS: Acetylcysteine 20% Inhal Soln (4ml) IH SCH ×3 (08:29→20:26)
[2018-06-28] MEDS: Levalbuterol 0.63 MG/3 ML Inhal Soln UD IH SCH ×3 (08:31→20:26)
[2018-06-28] MEDS: Metoprolol Succinate 100 mg XL Tab PO SCH (08:59)
[2018-06-28] MEDS: Magnesium Oxide 400 mg Tab UD PO SCH (10:45)
[2018-06-28] MEDS: Silver Sulfadiazine 1% Cream (25 gm) TP SCH ×2 (10:45→18:57)
[2018-06-28] MEDS: Cholecalciferol 1,000 INTLU TAB PO SCH (10:46)
--- NOTE | 2018-06-28 14:10 | PN ---
DATE: 06/28/2018 PULMONARY PROGRESS NOTE REFERRING PHYSICIAN: Luis Zafar MD SUBJECTIVE: The patient is sitting in chair lying in room. Reports feeling well today. Reports walking with physical therapy today. Had some shortness of breath with exertion. Has cough, but unable to expectorate sputum. No headache, rhinitis, chest pain, abdominal pain, nausea, vomiting, diarrhea and leg pain reported. Does report some bilateral lower extremity edema. OBJECTIVE: GENERAL: No acute distress. VITAL SIGNS: Blood pressure 115/78, pulse 78, temperature 97.8 and oxygen saturation 95%. HEENT: Moist mucous membranes. NECK: Supple. No JVD. LUNGS: Rhonchi bilaterally. Few crackles. CARDIOVASCULAR: S1 and S2 audible. ABDOMEN: Soft and nontender. No distension. No organomegaly. EXTREMITIES: +1 bilateral lower extremity edema. Right leg nonhealing ulcer. NEUROLOGIC: Awake, alert and verbal. Follows commands. MEDICATIONS: Reviewed. Mucomyst 4 mL inhalation every 6 hours, Eliquis 5 mg twice a day, aspirin 81 mg Thursday, Thursday and Thursday, vitamin D 1000 units daily, Cardizem 30 mg 4 times a day, doxycycline 100 mg every 12 hours, Atrovent 0.5 mg inhalation every 6 hours, Xopenex 0.63 mg inhalation every 4 hours p.r.n., Xopenex 0.63 mg inhalation every 6 hours, magnesium oxide 400 mg daily, meropenem 1 g every 8 hours, Solu-Medrol 40 mg every 8 hours, metoprolol succinate 100 mg at breakfast, Singulair 10 mg daily, vitamin B 600 mg daily, Silvadene topically twice a day to affected area, ocean nasal spray every 4 hours p.r.n. and Ambien 5 mg at bedtime p.r.n. LABORATORY DATA: Reviewed. WBC 9.8, RBC 3.25, hemoglobin 10.8, hematocrit 34.7 and platelets 270. Sodium 138, potassium 4.6, chloride 103, carbon dioxide 32, anion gap 8, BUN 49, creatinine 0.9, GFR is greater than 60, random glucose 147, calcium 9.6, total bilirubin 0.5, AST, ALT 63, alkaline phosphatase 83, total protein 5.9, albumin 3.1, globulin 2.1 and albumin-globulin ration 1.1. IMPRESSION AND PLAN: Ovarian cancer, pleural effusion, history of renal cell carcinoma requiring nephrectomy, atrial fibrillation, chronic lung disease, small cell lung cancer and pulmonary hypertension. The patient is status post thoracentesis. Fluid sent for cytology with cytology pending. We will decrease Solu-Medrol to 40 mg every 12 hours. Continue inhaled bronchodilators, gastric prophylaxis, deep venous thrombosis prophylaxis and continue diuretics. Head of bed elevated at 45 degrees. Need to monitor labs. The patient will need full pulmonary function test as outpatient. This patient was seen and examined with Dr. Love. Discussed assessment and plan as described above. Thank you for this consult. We will follow with you. Casey Galvan APN Concepcion Love MD PERLITA
--- NOTE | 2018-06-28 16:46 | CP.PCM.PN ---
Subjective - Date & Time of Evaluation Date of Evaluation: 06/28/18 Time of Evaluation: 08:15 - Subjective Subjective: PGY-2 heme/onc progress note for Dr Nehemiah Lind No acute events noted overnight. Patient stated she is doing well, denied being in pain. Today she had a left medial elbow acute fluid collection 4cm diameter which she said was not painful. Eating well and breathing well. Complained of "mucous stuck in throat". Objective - Vital Signs/Intake and Output Vital Signs (last 24 hours): Temp Pulse Resp BP Pulse Ox 97.8 F 90 21 113/79 95 06/28/18 08:13 06/28/18 15:28 06/28/18 08:13 06/28/18 15:28 06/28/18 08:13 Intake and Output: 06/28/18 06/28/18 06:59 18:59 Intake Total 0 Balance 0 - Medications Medications: Current Medications Acetylcysteine (Acetylcysteine 20%) 4 ml IH [id number] [facility] Last Admin: 06/28/18 14:05 Dose: 4 ml Apixaban (Eliquis) 5 mg PO BID [facility]; Protocol Last Admin: 06/28/18 10:45 Dose: 5 mg Aspirin (Ecotrin) 81 mg PO MWF [facility] Last Admin: 06/28/18 10:45 Dose: 81 mg Cholecalciferol (Vitamin D) 1,000 intlu PO DAILY [facility] Last Admin: 06/28/18 10:46 Dose: 1,000 intlu Diltiazem HCl (Cardizem) 30 mg PO QID [facility] Last Admin: 06/28/18 15:28 Dose: 30 mg Doxycycline Hyclate (Doryx) 100 mg PO Q12 [facility]; Protocol Stop: 07/03/18 22:01 Last Admin: 06/28/18 10:44 Dose: 100 mg Meropenem (Merrem Iv 1 Gm Premix) 1 gm in 50 mls @ 100 mls/hr IVPB Q8 [facility]; Protocol Stop: 07/03/18 22:01 Last Admin: 06/28/18 15:28 Dose: 100 mls/hr Ipratropium [place] (Atrovent) 0.5 mg IH [id number] [facility] Last Admin: 06/28/18 14:07 Dose: 0.5 mg Levalbuterol HCl (Xopenex) 0.63 mg IH [id number] [facility] Last Admin: 06/28/18 14:05 Dose: 0.63 mg Levalbuterol HCl (Xopenex) 0.63 mg IH [id number] PRN PRN Reason: Shortness of Breath Last Admin: 06/25/18 06:15 Dose: 0.63 mg Magnesium Oxide (Mag-Ox) 400 mg PO DAILY [facility] Last Admin: 06/28/18 10:45 Dose: 400 mg Methylprednisolone (Solu-Medrol) 40 mg IVP Q12 [facility] Metoprolol Succinate (Toprol Xl) 100 mg PO BRK [facility] Last Admin: 06/28/18 08:59 Dose: 100 mg Montelukast Sodium (Singulair) 10 mg PO DAILY [facility] Last Admin: 06/28/18 10:45 Dose: 10 mg Pyridoxine HCl (Vitamin B6 50 Mg Tab) 100 mg PO DAILY [facility] Last Admin: 06/28/18 10:45 Dose: 100 mg Silver Sulfadiazine (Silvadene 1% 25 Gm) 0 gm TP BID [facility] Last Admin: 06/28/18 10:45 Dose: 25 gm Sodium Chloride ([place] Nasal [place]) 0 ml NS Q4 PRN PRN Reason: Nasal congestion Last Admin: 06/27/18 23:10 Dose: 1 spr Zolpidem Tartrate (Ambien) 5 mg PO HS PRN; Protocol PRN Reason: Insomnia Last Admin: 06/27/18 21:31 Dose: 5 mg - Labs Labs: 06/28/18 05:20 06/28/18 05:20 PT 14.5 SECONDS (9.4-12.5) H 06/24/18 20:29 INR 1.27 06/24/18 20:29 APTT 32.0 Seconds (25.1-36.5) 06/24/18 20:29 - Additional Findings Additional findings: - Constitutional Appears: No Acute Distress Additional comments: on 4L, cough, able to complete sentences w/o pause - Head Exam Head Exam: ATRAUMATIC, NORMAL INSPECTION, NORMOCEPHALIC - Eye Exam Eye Exam: EOMI, Normal appearance, PERRL. absent: Scleral icterus Pupil Exam: NORMAL ACCOMODATION - ENT Exam ENT Exam: Mucous Membranes Moist - Neck Exam Additional comments: supple - Respiratory Exam Respiratory Exam: Rhonchi, Wheezes (mild), NORMAL BREATHING PATTERN - Cardiovascular Exam Cardiovascular Exam: REGULAR RHYTHM, +S1, +S2. absent: Systolic Murmur - GI/Abdominal Exam GI & Abdominal Exam: Normal Bowel Sounds, Soft. absent: Distended, Firm, Guarding, Rigid, Tenderness - Extremities Exam Extremities exam: Negative for: calf tenderness, pedal edema left medial elbow 4cm fluid collection circular, no redness, no pain on palpation, no warmth - Back Exam Back exam: absent: CVA tenderness (L), CVA tenderness (R) - Neurological Exam Neurological exam: Alert, Oriented x3 - Psychiatric Exam Psychiatric exam: Normal Affect, Normal Mood - Skin Skin Exam: Dry, Warm Assessment and Plan - Assessment and Plan (Free Text) Plan: Ms. 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
--- NOTE | 2018-06-28 17:39 | CP.PCM.PN ---
Subjective - Date & Time of Evaluation Date of Evaluation: 06/28/18 Time of Evaluation: 10:05 - Subjective Subjective: Still with cough and SOB at rest but a little better, no fevers. Objective - Vital Signs/Intake and Output Vital Signs (last 24 hours): Temp Pulse Resp BP Pulse Ox 98.6 F 82 18 116/75 94 L 06/27/18 16:26 06/27/18 18:18 06/27/18 16:26 06/27/18 21:32 06/27/18 16:26 Intake and Output: 06/28/18 06/28/18 06:59 18:59 Intake Total 0 Balance 0 - Medications Medications: Current Medications Acetylcysteine (Acetylcysteine 20%) 4 ml IH [id number] [facility] Last Admin: 06/27/18 19:53 Dose: 4 ml Apixaban (Eliquis) 5 mg PO BID [facility]; Protocol Last Admin: 06/27/18 18:18 Dose: 5 mg Aspirin (Ecotrin) 81 mg PO MWF [facility] Last Admin: 06/25/18 14:09 Dose: 81 mg Cholecalciferol (Vitamin D) 1,000 intlu PO DAILY [facility] Last Admin: 06/27/18 09:31 Dose: 1,000 intlu Diltiazem HCl (Cardizem) 30 mg PO QID [facility] Last Admin: 06/27/18 21:32 Dose: 30 mg Doxycycline Hyclate (Doryx) 100 mg PO Q12 [facility]; Protocol Stop: 07/03/18 22:01 Last Admin: 06/27/18 21:29 Dose: 100 mg Meropenem (Merrem Iv 1 Gm Premix) 1 gm in 50 mls @ 100 mls/hr IVPB Q8 [facility]; Protocol Stop: 07/03/18 22:01 Last Admin: 06/28/18 05:25 Dose: 100 mls/hr Ipratropium [place] (Atrovent) 0.5 mg IH [id number] [facility] Last Admin: 06/27/18 19:53 Dose: 0.5 mg Levalbuterol HCl (Xopenex) 0.63 mg IH [id number] [facility] Last Admin: 06/27/18 19:52 Dose: 0.63 mg Levalbuterol HCl (Xopenex) 0.63 mg IH [id number] PRN PRN Reason: Shortness of Breath Last Admin: 06/25/18 06:15 Dose: 0.63 mg Magnesium Oxide (Mag-Ox) 400 mg PO DAILY [facility] Last Admin: 06/27/18 09:26 Dose: 400 mg Methylprednisolone (Solu-Medrol) 40 mg IVP Q8 [facility] Last Admin: 06/28/18 05:25 Dose: 40 mg Metoprolol Succinate (Toprol Xl) 100 mg PO BRK [facility] Last Admin: 06/27/18 08:23 Dose: 100 mg Montelukast Sodium (Singulair) 10 mg PO DAILY [facility] Last Admin: 06/27/18 09:26 Dose: 10 mg Pyridoxine HCl (Vitamin B6 50 Mg Tab) 100 mg PO DAILY [facility] Last Admin: 06/27/18 09:27 Dose: 100 mg Silver Sulfadiazine (Silvadene 1% 25 Gm) 0 gm TP BID [facility] Last Admin: 06/27/18 18:18 Dose: 1 gm Sodium Chloride ([place] Nasal [place]) 0 ml NS Q4 PRN PRN Reason: Nasal congestion Last Admin: 06/27/18 23:10 Dose: 1 spr Zolpidem Tartrate (Ambien) 5 mg PO HS PRN; Protocol PRN Reason: Insomnia Last Admin: 06/27/18 21:31 Dose: 5 mg - Labs Labs: 06/28/18 05:20 06/28/18 05:20 PT 14.5 SECONDS (9.4-12.5) H 06/24/18 20:29 INR 1.27 06/24/18 20:29 APTT 32.0 Seconds (25.1-36.5) 06/24/18 20:29 - Constitutional Appears: Chronically Ill - Head Exam Head Exam: NORMAL INSPECTION - Respiratory Exam Respiratory Exam: Decreased Breath Sounds - Cardiovascular Exam Cardiovascular Exam: +S1, +S2 - GI/Abdominal Exam GI & Abdominal Exam: Soft. absent: Tenderness Assessment and Plan - Assessment and Plan (Free Text) Plan: Assessment right sided effusion with probable HCAP history of sepsis due to micrococcus bacteremia, consider due to right sided port-a-cath, growing Micrococcus on top of right sided healthcare-associated pneumonia; PleurX catheter has been removed from the left side stage 3B ovarian cancer with metastases CAD small cell lung cancer rheumatoid arthritis chronic CHF chronic right sided pleural effusion S/P pleurX placement S/P nephrectomy Plan continue Doxycycline and Merrem day 4 for 4-7 days of therapy follow up plans for thoracentesis overall prognosis is poor
--- NOTE | 2018-06-28 17:43 | US ---
HISTORY: Arm pain and swelling. Evaluate for deep venous thrombosis. PHYSICIAN(S): Mario Yee MD. FINDINGS: The visualized internal jugular veins are sonographically normal and compressible. No evidence of obstruction or thrombus this is seen. The visualized segments of the subclavian veins are patent with normal waveforms. No sonographic evidence of obstruction or thrombosis is seen. The visualized deep venous systems of both upper extremities proximally are sonographically normal and compressible. IMPRESSION: 1. No sonographic evidence for deep venous thrombosis in the visualized segments of both upper strategies.
[2018-06-29] MEDS: Levalbuterol 0.63 MG/3 ML Inhal Soln UD IH SCH ×4 (01:55→20:27)
[2018-06-29] MEDS: Ipratropium 0.02% Inhal Soln (0.5 mg/2.5 ml) UD IH SCH ×4 (01:55→20:28)
[2018-06-29] MEDS: Acetylcysteine 20% Inhal Soln (4ml) IH SCH ×4 (01:55→20:29)
[2018-06-29] MEDS: Meropenem IV 1 gm in NS 1 GM/50 ML BAG IVPB SCH ×3 (05:59→22:39)
[2018-06-29] MEDS: Metoprolol Succinate 100 mg XL Tab PO SCH (08:59)
--- NOTE | 2018-06-29 09:57 | CP.PCM.PN ---
Subjective - Date & Time of Evaluation Date of Evaluation: 06/29/18 Time of Evaluation: 09:51 - Subjective Subjective: PGY-2 heme/onc progress note for Dr Nehemiah Lind No acute events noted overnight. Patient this morning was sleeping comfortably. She denied any pain. She stated her left elbow swelling decreases when she lifts up her arm. Denied GI issues, fevers, sob. She still complains of mucous in throat. Objective - Vital Signs/Intake and Output Vital Signs (last 24 hours): Temp Pulse Resp BP Pulse Ox 98 F 98 H 18 129/72 97 06/29/18 08:18 06/29/18 08:59 06/29/18 08:18 06/29/18 08:59 06/29/18 08:18 Intake and Output: 06/29/18 06/29/18 06:59 18:59 Intake Total 1380 Balance 1380 - Medications Medications: Current Medications Acetylcysteine (Acetylcysteine 20%) 4 ml IH [id number] [facility] Last Admin: 06/29/18 08:18 Dose: 4 ml Apixaban (Eliquis) 5 mg PO BID [facility]; Protocol Last Admin: 06/28/18 18:57 Dose: 5 mg Aspirin (Ecotrin) 81 mg PO MWF [facility] Last Admin: 06/28/18 10:45 Dose: 81 mg Cholecalciferol (Vitamin D) 1,000 intlu PO DAILY [facility] Last Admin: 06/28/18 10:46 Dose: 1,000 intlu Diltiazem HCl (Cardizem) 30 mg PO QID [facility] Last Admin: 06/28/18 21:46 Dose: 30 mg Doxycycline Hyclate (Doryx) 100 mg PO Q12 [facility]; Protocol Stop: 07/03/18 22:01 Last Admin: 06/28/18 21:46 Dose: 100 mg Furosemide (Lasix) 20 mg PO DAILY [facility] Meropenem (Merrem Iv 1 Gm Premix) 1 gm in 50 mls @ 100 mls/hr IVPB Q8 [facility]; Protocol Stop: 07/03/18 22:01 Last Admin: 06/29/18 05:59 Dose: 100 mls/hr Ipratropium [place] (Atrovent) 0.5 mg IH [id number] [facility] Last Admin: 06/29/18 08:18 Dose: 0.5 mg Levalbuterol HCl (Xopenex) 0.63 mg IH [id number] [facility] Last Admin: 06/29/18 08:18 Dose: 0.63 mg Levalbuterol HCl (Xopenex) 0.63 mg IH [id number] PRN PRN Reason: Shortness of Breath Last Admin: 06/25/18 06:15 Dose: 0.63 mg Magnesium Oxide (Mag-Ox) 400 mg PO DAILY [facility] Last Admin: 06/28/18 10:45 Dose: 400 mg Methylprednisolone (Solu-Medrol) 40 mg IVP Q12 [facility] Last Admin: 06/28/18 21:47 Dose: 40 mg Metoprolol Succinate (Toprol Xl) 100 mg PO BRK [facility] Last Admin: 06/29/18 08:59 Dose: 100 mg Montelukast Sodium (Singulair) 10 mg PO DAILY [facility] Last Admin: 06/28/18 10:45 Dose: 10 mg Pyridoxine HCl (Vitamin B6 50 Mg Tab) 100 mg PO DAILY [facility] Last Admin: 06/28/18 10:45 Dose: 100 mg Silver Sulfadiazine (Silvadene 1% 25 Gm) 0 gm TP BID [facility] Last Admin: 06/28/18 18:57 Dose: 25 gm Sodium Chloride ([place] Nasal [place]) 0 ml NS Q4 PRN PRN Reason: Nasal congestion Last Admin: 06/27/18 23:10 Dose: 1 spr Zolpidem Tartrate (Ambien) 5 mg PO HS PRN; Protocol PRN Reason: Insomnia Last Admin: 06/28/18 21:47 Dose: 5 mg - Labs Labs: 06/28/18 05:20 06/28/18 05:20 PT 14.5 SECONDS (9.4-12.5) H 06/24/18 20:29 INR 1.27 06/24/18 20:29 APTT 32.0 Seconds (25.1-36.5) 06/24/18 20:29 - Additional Findings Additional findings: - Constitutional Appears: No Acute Distress Additional comments: on 4L, cough, able to complete sentences w/o pause - Head Exam Head Exam: ATRAUMATIC, NORMAL INSPECTION, NORMOCEPHALIC - Eye Exam Eye Exam: EOMI, Normal appearance, PERRL. absent: Scleral icterus Pupil Exam: NORMAL ACCOMODATION - ENT Exam ENT Exam: Mucous Membranes Moist - Neck Exam Additional comments: supple - Respiratory Exam Respiratory Exam: Rhonchi, Wheezes (mild), NORMAL BREATHING PATTERN - Cardiovascular Exam Cardiovascular Exam: REGULAR RHYTHM, +S1, +S2. absent: Systolic Murmur - GI/Abdominal Exam GI & Abdominal Exam: Normal Bowel Sounds, Soft. absent: Distended, Firm, Guarding, Rigid, Tenderness - Extremities Exam Extremities exam: Negative for: calf tenderness, pedal edema left medial elbow 4cm fluid collection circular, no redness, no pain on palpation, no warmth - Back Exam Back exam: absent: CVA tenderness (L), CVA tenderness (R) - Neurological Exam Neurological exam: Alert, Oriented x3 - Psychiatric Exam Psychiatric exam: Normal Affect, Normal Mood - Skin Skin Exam: Dry, Warm Assessment and Plan - Assessment and Plan (Free Text) Plan: Ms. 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 #CHF, Aortic aneurysm, HTN, PVD, A fib on eliquis #Hx DVT #COPD, recurrent pleural effusion with chronic R plurX -Stage IV metastatic ovarian carcinoma, mullerian origin, mets to lung, currently just finished gemcitabine and Avastin -small cell lung cancer, s/p carboplatinum and etoposide, not clinically active -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, treated with interferon (27 years ago) -continue abx per ID for empiric treatment of HCAP * continue Doxycycline and Merrem day 5 for 4-7 days of therapy -f/u pleural fluid cytology -steroids are being tapered down - now solumedrol 40mg ivp q12h -continue outpatient diuretic lasix 20mg po qd -> this was switched to bid by pulmonary -left elbow edema was evaluated - duplex 06/28/2018 did not show any evidence for DVT -seen by PT today - recommend home with services -On eliquis 5mg po bid for AFib Dispo: Seen by physical therapy - recommend home with services Case discussed with Dr Nehemiah Lind
[2018-06-29] MEDS: Magnesium Oxide 400 mg Tab UD PO SCH (10:44)
[2018-06-29] MEDS: Silver Sulfadiazine 1% Cream (25 gm) TP SCH ×2 (10:44→18:23)
[2018-06-29] MEDS: Cholecalciferol 1,000 INTLU TAB PO SCH (10:45)
[2018-06-29] MEDS: MethylPREDNISolone 40 mg Vial IVP SCH ×2 (10:45→22:44)
--- NOTE | 2018-06-29 12:46 | PN ---
DATE: 06/29/2018 PULMONARY PROGRESS NOTE REFERRING PHYSICIAN: Luis Zafar MD SUBJECTIVE: The patient is sitting up in bed. No acute distress. Reports feeling better this morning. Still has some coughing, still has shortness of breath with exertion. No headache, rhinitis, chest pain, abdominal pain, nausea, vomiting, diarrhea or leg pain reported. Have some bilateral lower extremity edema. OBJECTIVE: GENERAL: No acute distress. VITAL SIGNS: Blood pressure 129/72, pulse 77, temperature 98 and oxygen saturation 97%. HEENT: Moist mucous membranes. NECK: Supple. No JVD. LUNGS: Rhonchi bilaterally. CARDIOVASCULAR: S1 and S2 audible. ABDOMEN: Soft and nontender. No distension. No organomegaly. EXTREMITIES: Bilateral lower extremity edema. Right leg nonhealing ulcer. NEUROLOGIC: Awake, alert and verbal. Follows commands. MEDICATIONS: Reviewed. Mucomyst 4 mL every 6 hours, Eliquis 5 mg twice a day, aspirin 81 mg Thursday, Thursday and Thursday, vitamin D 1000 units daily, Cardizem 30 mg 4 times a day, doxycycline 100 mg every 12 hours, Lasix 20 mg daily, Atrovent 0.5 mg inhalation every 6 hours, Xopenex 0.63 mg inhalation every 4 hours p.r.n., Xopenex 0.63 mg inhalation every 6 hours, magnesium oxide 400 mg daily, meropenem 1 g every 8 hours, Solu-Medrol 40 mg IV push every 12 hours, metoprolol succinate 100 mg at breakfast, Singulair 10 mg daily, vitamin D6 100 mg daily, Silvadene topically twice a day to affected area, ocean nasal spray every 4 hours p.r.n. and Ambien 5 mg at bedtime p.r.n. LABORATORY DATA: Reviewed. No new labs since yesterday. Extremity ultrasound shows no sonographic evidence or deep venous thrombosis in both extremities. IMPRESSION AND PLAN: Ovarian cancer, pleural effusion, history of renal cell carcinoma requiring nephrectomy, atrial fibrillation, chronic lung disease, small cell lung cancer and pulmonary hypertension. The patient is status post thoracentesis, pending cytology. Continue steroids, continue inhaled bronchodilators, gastric prophylaxis, deep venous thrombosis prophylaxis, continue to monitor labs. We will increase Lasix to 20 mg twice a day due to patient's history of cardiomyopathy, pulmonary hypertension. Head of bed elevated at 45 degrees. The patient will need full pulmonary function test as outpatient. This patient was seen and examined with Dr. Love. Discussed assessment and plan as described above. Thank you for this consult. We will follow with you. Casey Galvan APN Concepcion Love MD
--- NOTE | 2018-06-29 16:01 | CP.PCM.PN ---
Subjective - Date & Time of Evaluation Date of Evaluation: 06/29/18 Time of Evaluation: 09:45 - Subjective Subjective: Comfortable in bed, no fevers, but still feels weak. Objective - Vital Signs/Intake and Output Vital Signs (last 24 hours): Temp Pulse Resp BP Pulse Ox 97.8 F 90 21 113/79 95 06/28/18 08:13 06/28/18 15:28 06/28/18 08:13 06/28/18 15:28 06/28/18 08:13 Intake and Output: 06/28/18 06/28/18 06:59 18:59 Intake Total 0 Balance 0 - Medications Medications: Current Medications Acetylcysteine (Acetylcysteine 20%) 4 ml IH [id number] [facility] Last Admin: 06/28/18 14:05 Dose: 4 ml Apixaban (Eliquis) 5 mg PO BID [facility]; Protocol Last Admin: 06/28/18 10:45 Dose: 5 mg Aspirin (Ecotrin) 81 mg PO MWF [facility] Last Admin: 06/28/18 10:45 Dose: 81 mg Cholecalciferol (Vitamin D) 1,000 intlu PO DAILY [facility] Last Admin: 06/28/18 10:46 Dose: 1,000 intlu Diltiazem HCl (Cardizem) 30 mg PO QID [facility] Last Admin: 06/28/18 15:28 Dose: 30 mg Doxycycline Hyclate (Doryx) 100 mg PO Q12 [facility]; Protocol Stop: 07/03/18 22:01 Last Admin: 06/28/18 10:44 Dose: 100 mg Furosemide (Lasix) 20 mg PO DAILY [facility] Meropenem (Merrem Iv 1 Gm Premix) 1 gm in 50 mls @ 100 mls/hr IVPB Q8 [facility]; Protocol Stop: 07/03/18 22:01 Last Admin: 06/28/18 15:28 Dose: 100 mls/hr Ipratropium [place] (Atrovent) 0.5 mg IH [id number] [facility] Last Admin: 06/28/18 14:07 Dose: 0.5 mg Levalbuterol HCl (Xopenex) 0.63 mg IH [id number] [facility] Last Admin: 06/28/18 14:05 Dose: 0.63 mg Levalbuterol HCl (Xopenex) 0.63 mg IH [id number] PRN PRN Reason: Shortness of Breath Last Admin: 06/25/18 06:15 Dose: 0.63 mg Magnesium Oxide (Mag-Ox) 400 mg PO DAILY [facility] Last Admin: 06/28/18 10:45 Dose: 400 mg Methylprednisolone (Solu-Medrol) 40 mg IVP Q12 [facility] Metoprolol Succinate (Toprol Xl) 100 mg PO BRK [facility] Last Admin: 06/28/18 08:59 Dose: 100 mg Montelukast Sodium (Singulair) 10 mg PO DAILY [facility] Last Admin: 06/28/18 10:45 Dose: 10 mg Pyridoxine HCl (Vitamin B6 50 Mg Tab) 100 mg PO DAILY [facility] Last Admin: 06/28/18 10:45 Dose: 100 mg Silver Sulfadiazine (Silvadene 1% 25 Gm) 0 gm TP BID [facility] Last Admin: 06/28/18 10:45 Dose: 25 gm Sodium Chloride ([place] Nasal [place]) 0 ml NS Q4 PRN PRN Reason: Nasal congestion Last Admin: 06/27/18 23:10 Dose: 1 spr Zolpidem Tartrate (Ambien) 5 mg PO HS PRN; Protocol PRN Reason: Insomnia Last Admin: 06/27/18 21:31 Dose: 5 mg - Labs Labs: 06/28/18 05:20 06/28/18 05:20 PT 14.5 SECONDS (9.4-12.5) H 06/24/18 20:29 INR 1.27 06/24/18 20:29 APTT 32.0 Seconds (25.1-36.5) 06/24/18 20:29 - Constitutional Appears: Chronically Ill - Head Exam Head Exam: NORMAL INSPECTION - Respiratory Exam Respiratory Exam: Decreased Breath Sounds - Cardiovascular Exam Cardiovascular Exam: +S1, +S2 - GI/Abdominal Exam GI & Abdominal Exam: Soft. absent: Tenderness Assessment and Plan - Assessment and Plan (Free Text) Plan: Assessment right sided effusion with probable HCAP history of sepsis due to micrococcus bacteremia, consider due to right sided port-a-cath, growing Micrococcus on top of right sided healthcare-associated pneumonia; PleurX catheter has been removed from the left side stage 3B ovarian cancer with metastases CAD small cell lung cancer rheumatoid arthritis chronic CHF chronic right sided pleural effusion S/P pleurX placement S/P nephrectomy Plan continue Doxycycline and Merrem day 5 for 4-7 days of therapy follow up plans for thoracentesis overall prognosis is poor
[2018-06-30] MEDS: Acetylcysteine 20% Inhal Soln (4ml) IH SCH ×4 (02:24→20:32)
[2018-06-30] MEDS: Ipratropium 0.02% Inhal Soln (0.5 mg/2.5 ml) UD IH SCH ×4 (02:25→20:32)
[2018-06-30] MEDS: Levalbuterol 0.63 MG/3 ML Inhal Soln UD IH SCH ×4 (02:25→20:33)
[2018-06-30] MEDS: Meropenem IV 1 gm in NS 1 GM/50 ML BAG IVPB SCH ×3 (05:04→21:44)
[2018-06-30 06:23] LABS: BASO # 0.01 K/mm3 (0.0-2.0); BASO % 0.1 % (0.0-3.0); GRAN # 11.13 (1.4-6.5); GRAN % 93.7 % (50.0-68.0); HEMOGLOBIN 11.1 g/dL (12.0-16.0); LYMPH # 0.6 (1.2-3.4); LYMPH % 5.1 % (22.0-35.0); MEAN CELL VOLUME 106.8 fl (80.0-105.0); MEAN CORPUSCULAR HEMOGLOBIN 32.7 pg (25.0-35.0); MEAN CORPUSCULAR HGB CONC 30.7 g/dl (31.0-37.0); MEAN PLATELET VOLUME 9.8 fl (7.0-11.0); MONO # 0.1 (0.1-0.6); MONO % 1.1 % (1.0-6.0); PLATELET COUNT 262 10^3/uL (120.0-450.0); RBC 3.39 10^6/uL (3.5-6.1); RED CELL DISTRIBUTION WIDTH 15.7 % (11.5-14.5); WHITE BLOOD COUNT 11.9 10^3/uL (4.5-11.0)
[2018-06-30 06:43] LABS: ALB/GLOB RATIO 1.1 (1.1-1.8); ALBUMIN 2.9 g/dL (3.0-4.8); ALT/SGPT 62 U/L (7-56); AST/SGOT 52 U/L (14-36); BLOOD UREA NITROGEN 53 mg/dL (7-21); CALCIUM 8.9 mg/dL (8.4-10.5); GFR NON-AFRICAN AMERICAN > 60
[2018-06-30 08:20] LABS: BAND 2 % (0-2); MONOCYTE 2 % (1.0-6.0); NEUTROPHIL 96 % (50.0-70.0)
[2018-06-30 08:21] LABS: PLATELET ESTIMATE NORMAL (NORMAL)
[2018-06-30] MEDS: Metoprolol Succinate 100 mg XL Tab PO SCH (09:30)
[2018-06-30] MEDS: MethylPREDNISolone 40 mg Vial IVP SCH ×2 (10:12→21:43)
[2018-06-30] MEDS: Magnesium Oxide 400 mg Tab UD PO SCH (10:13)
[2018-06-30] MEDS: Cholecalciferol 1,000 INTLU TAB PO SCH (10:15)
[2018-06-30] MEDS: Silver Sulfadiazine 1% Cream (25 gm) TP SCH ×2 (10:16→18:08)
--- NOTE | 2018-06-30 15:58 | PN ---
DATE: 06/30/2018 PULMONARY PROGRESS NOTE REFERRING PHYSICIAN: Luis Zafar MD. SUBJECTIVE: The patient is sitting up in bed. No acute distress. No overnight events reported. The patient reports having shortness of breath with exertion and occasional cough. Reports not having a bowel movement for few days, so she brought in magnesium titrate and took 2 doses last night. Per nursing staff, the patient had small bowel movements. PHYSICAL EXAMINATION: GENERAL: No acute distress. VITAL SIGNS: Blood pressure 102/69, pulse 86, temperature 97.3 and oxygen saturation 98% on nasal cannula. HEENT: Moist mucus membranes. NECK: Supple. No JVD. LUNGS: Rhonchi bilaterally, few crackles. CARDIOVASCULAR: S1 and S2 audible. ABDOMEN: Soft and nontender. No distension. No organomegaly. EXTREMITIES: Bilateral upper and bilateral lower extremity edema. Right leg non-healing ulcer. NEUROLOGICAL: Awake, alert, verbal, and follows commands. MEDICATIONS: Reviewed. Mucomyst 4 mL inhalation every 6 hours, Eliquis 5 mg twice a day, aspirin 81 mg Thursday, Thursday and Thursday, vitamin D 1000 units daily, Cardizem 30 mg 4 times a day, doxycycline 100 mg every 12 hours, Lasix 20 mg daily, Atrovent 0.5 mg every 6 hours, Xopenex 0.63 mg inhalation every 6 hours p.r.n., Xopenex 0.63 mg inhalation every 6 hours, magnesium oxide 400 mg daily, meropenem 1 gram every 8 hours, Solu-Medrol 40 mg every 12 hours, metoprolol succinate 100 mg at breakfast, Singulair 10 mg daily, vitamin D 6 a 100 mg daily, Silvadene topically twice a day to affected area, [place] nasal spray every 4 hours p.r.n. and Ambien 5 mg at bedtime p.r.n. LABORATORY DATA: Reviewed. WBC 11.9, RBC 3.39, hemoglobin 11.1, hematocrit 36.2 and platelets 262. Sodium 137, potassium 4.2, chloride 99, carbon dioxide 33, anion gap 10, BUN 53, creatinine 0.8. GFR is greater than 60, random glucose 183. Calcium 8.9, total bilirubin 0.5, AST 52, ALT 62, alkaline phosphatase 88, total protein 5.6, albumin 2.9, globulin 2.7, and albumin-globulin ration 1.1. Blood cultures final, no growth after 5 days. Ultrasound of bilateral upper extremities showed no evidence of deep venous thrombosis. IMPRESSION AND PLAN: Ovarian cancer, pleural effusion, history of renal cell carcinoma requiring nephrectomy, atrial fibrillation, chronic lung disease, small cell lung cancer and pulmonary hypertension status post thoracentesis pending cytology. Continue steroids, inhaled bronchodilators, deep venous thrombosis, and gastric prophylaxis. Continue to gently diurese the patient. The patient has history of cardiomyopathy. Head of bed elevated at 45 degrees. Elevate bilateral lower and upper extremities, supportive care. The patient will need full pulmonary function test as outpatient. Continue physical therapy. Monitor bowel movements. This patient was seen and examined with Dr. Love. Discussed assessment and plan as described above. Thank you for this consult. We will follow with you. Casey Galvan APN Concepcion Love MD PERLITA
--- NOTE | 2018-06-30 19:02 | CP.PCM.PN ---
Subjective - Date & Time of Evaluation Date of Evaluation: 06/30/18 Time of Evaluation: 09:20 - Subjective Subjective: Sitting on a chair without distress but still feels weak, no fevers, no nausea, no diarrhea. Objective - Vital Signs/Intake and Output Vital Signs (last 24 hours): Temp Pulse Resp BP Pulse Ox 98 F 94 H 18 118/79 97 06/29/18 08:18 06/29/18 15:37 06/29/18 08:18 06/29/18 15:37 06/29/18 08:18 Intake and Output: 06/29/18 06/29/18 06:59 18:59 Intake Total 1380 Balance 1380 - Medications Medications: Current Medications Acetylcysteine (Acetylcysteine 20%) 4 ml IH [id number] [facility] Last Admin: 06/29/18 14:01 Dose: Not Given Apixaban (Eliquis) 5 mg PO BID [facility]; Protocol Last Admin: 06/29/18 10:38 Dose: 5 mg Aspirin (Ecotrin) 81 mg PO MWF [facility] Last Admin: 06/28/18 10:45 Dose: 81 mg Cholecalciferol (Vitamin D) 1,000 intlu PO DAILY [facility] Last Admin: 06/29/18 10:45 Dose: 1,000 intlu Diltiazem HCl (Cardizem) 30 mg PO QID [facility] Last Admin: 06/29/18 15:37 Dose: 30 mg Doxycycline Hyclate (Doryx) 100 mg PO Q12 [facility]; Protocol Stop: 07/03/18 22:01 Last Admin: 06/29/18 10:36 Dose: 100 mg Furosemide (Lasix) 20 mg PO BID [facility] Meropenem (Merrem Iv 1 Gm Premix) 1 gm in 50 mls @ 100 mls/hr IVPB Q8 [facility]; Protocol Stop: 07/03/18 22:01 Last Admin: 06/29/18 15:37 Dose: 100 mls/hr Ipratropium [place] (Atrovent) 0.5 mg IH [id number] [facility] Last Admin: 06/29/18 14:02 Dose: Not Given Levalbuterol HCl (Xopenex) 0.63 mg IH [id number] [facility] Last Admin: 06/29/18 14:02 Dose: Not Given Levalbuterol HCl (Xopenex) 0.63 mg IH [id number] PRN PRN Reason: Shortness of Breath Last Admin: 06/25/18 06:15 Dose: 0.63 mg Magnesium Oxide (Mag-Ox) 400 mg PO DAILY [facility] Last Admin: 06/29/18 10:44 Dose: 400 mg Methylprednisolone (Solu-Medrol) 40 mg IVP Q12 [facility] Last Admin: 06/29/18 10:45 Dose: 40 mg Metoprolol Succinate (Toprol Xl) 100 mg PO BRK [facility] Last Admin: 06/29/18 08:59 Dose: 100 mg Montelukast Sodium (Singulair) 10 mg PO DAILY [facility] Last Admin: 06/29/18 10:44 Dose: 10 mg Pyridoxine HCl (Vitamin B6 50 Mg Tab) 100 mg PO DAILY [facility] Last Admin: 06/29/18 10:36 Dose: 100 mg Silver Sulfadiazine (Silvadene 1% 25 Gm) 0 gm TP BID [facility] Last Admin: 06/29/18 10:44 Dose: 25 gm Sodium Chloride ([place] Nasal [place]) 0 ml NS Q4 PRN PRN Reason: Nasal congestion Last Admin: 06/27/18 23:10 Dose: 1 spr Zolpidem Tartrate (Ambien) 5 mg PO HS PRN; Protocol PRN Reason: Insomnia Last Admin: 06/28/18 21:47 Dose: 5 mg - Labs Labs: 06/28/18 05:20 06/28/18 05:20 PT 14.5 SECONDS (9.4-12.5) H 06/24/18 20:29 INR 1.27 06/24/18 20:29 APTT 32.0 Seconds (25.1-36.5) 06/24/18 20:29 - Constitutional Appears: Chronically Ill - Head Exam Head Exam: NORMAL INSPECTION - Respiratory Exam Respiratory Exam: Decreased Breath Sounds - Cardiovascular Exam Cardiovascular Exam: +S1, +S2 - GI/Abdominal Exam GI & Abdominal Exam: Soft. absent: Tenderness Assessment and Plan - Assessment and Plan (Free Text) Plan: Assessment right sided effusion with probable HCAP history of sepsis due to micrococcus bacteremia, consider due to right sided port-a-cath, growing Micrococcus on top of right sided healthcare-associated pneumonia; PleurX catheter has been removed from the left side stage 3B ovarian cancer with metastases CAD small cell lung cancer rheumatoid arthritis chronic CHF chronic right sided pleural effusion S/P pleurX placement S/P nephrectomy Plan continue Doxycycline and Merrem day 6 for up to 7 days of therapy follow up plans for thoracentesis overall prognosis is poor
[2018-06-30] MEDS ORDERED: POLYETHYLENE GLYCOL 3350 17 GM/Dose PACKET PO PRN (19:46)
[2018-07-01] MEDS: Acetylcysteine 20% Inhal Soln (4ml) IH SCH ×3 (01:53→13:37)
[2018-07-01] MEDS: Ipratropium 0.02% Inhal Soln (0.5 mg/2.5 ml) UD IH SCH ×3 (01:53→13:37)
[2018-07-01] MEDS: Levalbuterol 0.63 MG/3 ML Inhal Soln UD IH SCH ×3 (01:54→13:37)
[2018-07-01] MEDS: Meropenem IV 1 gm in NS 1 GM/50 ML BAG IVPB SCH ×2 (05:22→13:40)
[2018-07-01] MEDS: Metoprolol Succinate 100 mg XL Tab PO SCH (08:09)
[2018-07-01 08:20] VITALS: RESP 21; TEMP 97.6; O2SAT 95
--- NOTE | 2018-07-01 09:24 | CP.PCM.PN ---
Subjective - Date & Time of Evaluation Date of Evaluation: 07/01/18 Time of Evaluation: 09:20 - Subjective Subjective: PGY-2 heme/onc progress note for Dr Nehemiah Lind Objective - Vital Signs/Intake and Output Vital Signs (last 24 hours): Temp Pulse Resp BP Pulse Ox 97.6 F 102 H 21 111/76 95 07/01/18 08:19 07/01/18 08:19 07/01/18 08:19 07/01/18 08:19 07/01/18 08:19 Intake and Output: 07/01/18 07/01/18 06:59 18:59 Intake Total 1740 Balance 1740 - Medications Medications: Current Medications Acetylcysteine (Acetylcysteine 20%) 4 ml IH [id number] [facility] Last Admin: 07/01/18 08:04 Dose: 4 ml Apixaban (Eliquis) 2.5 mg PO BID [facility]; Protocol Aspirin (Ecotrin) 81 mg PO MWF [facility] Last Admin: 06/30/18 10:17 Dose: 81 mg Cholecalciferol (Vitamin D) 1,000 intlu PO DAILY [facility] Last Admin: 06/30/18 10:15 Dose: 1,000 intlu Diltiazem HCl (Cardizem) 30 mg PO QID [facility] Last Admin: 06/30/18 21:44 Dose: 30 mg Docusate Sodium (Colace) 100 mg PO BID [facility] Doxycycline Hyclate (Doryx) 100 mg PO Q12 [facility]; Protocol Stop: 07/03/18 22:01 Last Admin: 06/30/18 21:44 Dose: 100 mg Furosemide (Lasix) 20 mg PO BID [facility] Last Admin: 06/30/18 17:00 Dose: 20 mg Meropenem (Merrem Iv 1 Gm Premix) 1 gm in 50 mls @ 100 mls/hr IVPB Q8 [facility]; Protocol Stop: 07/03/18 22:01 Last Admin: 07/01/18 05:22 Dose: 100 mls/hr Ipratropium [place] (Atrovent) 0.5 mg IH [id number] [facility] Last Admin: 07/01/18 08:04 Dose: 0.5 mg Levalbuterol HCl (Xopenex) 0.63 mg IH [id number] [facility] Last Admin: 07/01/18 08:04 Dose: 0.63 mg Levalbuterol HCl (Xopenex) 0.63 mg IH [id number] PRN PRN Reason: Shortness of Breath Last Admin: 06/25/18 06:15 Dose: 0.63 mg Magnesium Oxide (Mag-Ox) 400 mg PO DAILY [facility] Last Admin: 06/30/18 10:13 Dose: 400 mg Methylprednisolone (Solu-Medrol) 20 mg IVP BID [facility] Last Admin: 06/30/18 21:43 Dose: 20 mg Metoprolol Succinate (Toprol Xl) 100 mg PO BRK [facility] Last Admin: 07/01/18 08:09 Dose: 100 mg Montelukast Sodium (Singulair) 10 mg PO DAILY [facility] Last Admin: 06/30/18 10:17 Dose: 10 mg Polyethylene Glycol (Miralax) 17 gm PO DAILY PRN PRN Reason: Constipation Pyridoxine HCl (Vitamin B6 50 Mg Tab) 100 mg PO DAILY [facility] Last Admin: 06/30/18 10:12 Dose: 100 mg Silver Sulfadiazine (Silvadene 1% 25 Gm) 0 gm TP BID [facility] Last Admin: 06/30/18 18:08 Dose: 1 gm Sodium Chloride ([place] Nasal [place]) 0 ml NS Q4 PRN PRN Reason: Nasal congestion Last Admin: 06/27/18 23:10 Dose: 1 spr Zolpidem Tartrate (Ambien) 5 mg PO HS PRN; Protocol PRN Reason: Insomnia Last Admin: 06/30/18 21:55 Dose: 5 mg - Labs Labs: 06/30/18 06:00 06/30/18 06:00 PT 14.5 SECONDS (9.4-12.5) H 06/24/18 20:29 INR 1.27 06/24/18 20:29 APTT 32.0 Seconds (25.1-36.5) 06/24/18 20:29 Assessment and Plan - Assessment and Plan (Free Text) Plan: Ms. 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 c/b pulmonary effusions who's has been hospi talized with COPD exacerbation in setting of possible HCAP and recurrently pleural effusions s/p thoracentesis: #stage IV ovarian cancer with pulmonary mets #CHF, Aortic aneurysm, HTN, PVD, A fib on eliquis #Hx DVT #COPD, recurrent pleural effusion with chronic R plurX #Sacral pressure ulcer -Stage IV metastatic ovarian carcinoma, mullerian origin, mets to lung, currentl y just finished gemcitabine and Avastin -small cell lung cancer, s/p carboplatinum and etoposide, not clinically active -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, treated with interferon (27 years a go) -continue abx per ID for empiric treatment of HCAP * continue Doxycycline and Merrem day 5 for 4-7 days of therapy -f/u pleural fluid cytology -steroids are being tapered down - now solumedrol 20mg ivp q12h -continue outpatient diuretic lasix 20mg po qd -> this was switched to bid by pulmonary -left elbow edema was evaluated - duplex 06/28/2018 did not show any evidence for DVT -seen by PT today - recommend home with services -On eliquis 5mg po bid for AFib -optiform and silvadene to sacral pressure ulcer Dispo: Seen by physical therapy - recommend home with services Case discussed with Dr Nehemiah Lind
[2018-07-01] MEDS: Magnesium Oxide 400 mg Tab UD PO SCH (09:30)
[2018-07-01] MEDS: MethylPREDNISolone 40 mg Vial IVP SCH (09:31)
[2018-07-01] MEDS: Cholecalciferol 1,000 INTLU TAB PO SCH (09:31)
[2018-07-01] MEDS: Silver Sulfadiazine 1% Cream (25 gm) TP SCH (09:33)
[2018-07-01 12:57] LABS: BASO # 0.01 K/mm3 (0.0-2.0); BASO % 0.1 % (0.0-3.0); GRAN # 11.75 (1.4-6.5); GRAN % 92.8 % (50.0-68.0); HEMOGLOBIN 10.5 g/dL (12.0-16.0); LYMPH # 0.7 (1.2-3.4); LYMPH % 5.8 % (22.0-35.0); MEAN CELL VOLUME 104.3 fl (80.0-105.0); MEAN CORPUSCULAR HEMOGLOBIN 32.5 pg (25.0-35.0); MEAN CORPUSCULAR HGB CONC 31.2 g/dl (31.0-37.0); MEAN PLATELET VOLUME 9.4 fl (7.0-11.0); MONO # 0.2 (0.1-0.6); MONO % 1.3 % (1.0-6.0); RBC 3.23 10^6/uL (3.5-6.1); RED CELL DISTRIBUTION WIDTH 15.5 % (11.5-14.5); WHITE BLOOD COUNT 12.7 10^3/uL (4.5-11.0)
[2018-07-01 13:10] LABS: ALB/GLOB RATIO 1.2 (1.1-1.8); ALBUMIN 2.8 g/dL (3.0-4.8); ALT/SGPT 56 U/L (7-56); AST/SGOT 37 U/L (14-36); BLOOD UREA NITROGEN 71 mg/dL (7-21); CALCIUM 9.2 mg/dL (8.4-10.5); GFR NON-AFRICAN AMERICAN > 60
[2018-07-01 13:55] VITALS: BP 119/60; PULSE 100
--- NOTE | 2018-07-01 14:21 | PN ---
DATE: 07/01/2018 PULMONARY PROGRESS NOTE REFERRING PHYSICIAN: Luis Zafar MD SUBJECTIVE: The patient is sitting up at bedside with physical therapy. No acute distress. No overnight events reported. The patient denies any shortness of breath at this time. Does report having occasional cough with mild sputum production. No headache, rhinitis, chest pain, abdominal pain, nausea, vomiting, diarrhea, or leg pain reported. The patient does have leg edema. PHYSICAL EXAMINATION GENERAL: No acute distress. VITAL SIGNS: Blood pressure 111/76, pulse 102, temperature 97.6, oxygen saturation 95%. HEENT: Moist mucous membranes. NECK: Supple. No JVD. LUNGS: Rhonchi bilaterally. CARDIOVASCULAR: S1 and S2 audible. ABDOMEN: Soft and nontender. No distension. No organomegaly. EXTREMITIES: Bilateral upper and lower extremity edema, right leg nonhealing ulcer. NEUROLOGIC: Awake, alert, verbal, follows commands. MEDICATIONS: Reviewed. Mucomyst 4 mL inhalation every 6 hours, Eliquis 2.5 mg twice a day, aspirin 81 mg Thursday, Thursday, Thursday; vitamin D 1000 units daily, Cardizem 30 mg 4 times a day, Colace 100 mg twice a day, doxycycline 100 mg every 12 hours, Lasix 20 mg twice a day, Atrovent 0.5 mg inhalation every 6 hours, Xopenex 0.63 mg inhalation every 4 hours p.r.n., Xopenex 0.63 mg inhalation every 6 hours, magnesium oxide 400 mg daily, meropenem 1 g every 8 hours, Solu-Medrol 20 mg IV push twice a day, metoprolol succinate 100 mg at breakfast, Singulair 10 mg daily, MiraLax 17 g daily p.r.n., vitamin B6 100 mg daily, Silvadene topically twice a day to affected area, [place] nasal spray every 4 hours p.r.n., Ambien 5 mg at bedtime p.r.n. LABORATORY DATA: Reviewed. No new labs. Cytology specimen from left pleural fluid shows positive for malignant cells. IMPRESSION AND PLAN: Ovarian cancer, pleural effusion, history of renal cell carcinoma requiring nephrectomy, atrial fibrillation, chronic lung disease, small cell lung cancer, pulmonary hypertension, status post thoracentesis. Continue steroids, inhaled bronchodilators, deep venous thrombosis prophylaxis, gastric prophylaxis. Continue to gently diurese the patient. The patient has history of cardiomyopathy. Head of bed elevated 45 degrees, elevate to bilateral upper and lower extremities. Continue physical therapy. The patient will need full pulmonary function test as outpatient. The patient was seen and examined with Dr. Love. Discussed assessment and plan as described above. Thank you for this consult. We will follow with you. Casey Galvan APN Concepcion Love MD
--- NOTE | 2018-07-01 15:45 | CP.PCM.DIS ---
Provider - Provider Date of Admission: 06/24/18 16:56 Attending physician: Luis Zafar MD Primary care physician: Tania Lind MD Consults: 06/24/18 15:20 Consult [Physician Consult] Stat Comment: Consulting Provider: Concepcion Love Consulting Physician: Concepcion Love Reason for Consult: SOB 06/24/18 15:21 Consult [Physician Consult] Stat Comment: Consulting Provider: Reese Bradford Consulting Physician: Reese Bradford Reason for Consult: infiltrate lung Consult [Physician Consult] Stat Comment: Consulting Provider: Jonel Calles Consulting Physician: Jonel Calles Reason for Consult: SOB 06/25/18 00:32 Nursing Referral for Wound Care Routine Comment: Physician Instructions: Reason For Exam: b/l buttock ulcers 06/25/18 09:49 Physician Consult Routine Comment: Consulting Provider: Mario Yee Consulting Physician: Mario Yee Reason for Consult: thoracentesis Time Spent in preparation of Discharge (in minutes): 44 Diagnosis - Discharge Diagnosis (1) Pleural effusion Status: Resolved Priority: High (2) Pneumonia Status: Resolved Priority: High Hospital Course - Lab Results Lab Results: Micro Results 06/24/18 19:10 Blood-Venous Blood Culture - Final NO GROWTH AFTER 5 DAYS 06/24/18 19:10 Blood-Venous Gram Stain - Final TEST NOT PERFORMED 06/24/18 17:10 Blood-Venous Blood Culture - Final NO GROWTH AFTER 5 DAYS 06/24/18 17:10 Blood-Venous Gram Stain - Final TEST NOT PERFORMED 06/25/18 02:00 Urine Random Urine Culture - Final No Growth (<1,000 CFU/ML) 06/24/18 22:58 Naris MRSA Culture (Admit) - Final MRSA NOT DETECTED Most Recent Lab Values WBC 12.7 10^3/uL (4.5-11.0) H 07/01/18 12:30 RBC 3.23 10^6/uL (3.5-6.1) L 07/01/18 12:30 Hgb 10.5 g/dL (12.0-16.0) L 07/01/18 12:30 Hct 33.7 % (36.0-48.0) L 07/01/18 12:30 MCV 104.3 fl (80.0-105.0) 07/01/18 12:30 MCH 32.5 pg (25.0-35.0) 07/01/18 12:30 MCHC 31.2 g/dl (31.0-37.0) 07/01/18 12:30 RDW 15.5 % (11.5-14.5) H 07/01/18 12:30 Plt Count 242 10^3/uL (120.0-450.0) 07/01/18 12:30 MPV 9.4 fl (7.0-11.0) 07/01/18 12:30 Gran % 92.8 % (50.0-68.0) H 07/01/18 12:30 Lymph % (Auto) 5.8 % (22.0-35.0) L 07/01/18 12:30 [place] % (Auto) 1.3 % (1.0-6.0) 07/01/18 12:30 Eos % (Auto) 0.0 % (1.5-5.0) L 07/01/18 12:30 Baso % (Auto) 0.1 % (0.0-3.0) 07/01/18 12:30 Gran # 11.75 (1.4-6.5) H 07/01/18 12:30 Lymph # (Auto) 0.7 (1.2-3.4) L 07/01/18 12:30 [place] # (Auto) 0.2 (0.1-0.6) 07/01/18 12:30 Eos # (Auto) 0.0 (0.0-0.7) 07/01/18 12:30 Baso # (Auto) 0.01 K/mm3 (0.0-2.0) 07/01/18 12:30 Neutrophils % (Manual) 96 % (50.0-70.0) H 06/30/18 06:00 Band Neutrophils % 2 % (0-2) 06/30/18 06:00 Lymphocytes % (Manual) TEST NOT PERFORMED 06/30/18 06:00 Monocytes % (Manual) 2 % (1.0-6.0) 06/30/18 06:00 Platelet Evaluation Normal (NORMAL) 06/30/18 06:00 PT 14.5 SECONDS (9.4-12.5) H 06/24/18 20:29 INR 1.27 06/24/18 20:29 APTT 32.0 Seconds (25.1-36.5) 06/24/18 20:29 Sodium 135 mmol/L (132-148) 07/01/18 12:30 Potassium 4.3 mmol/L (3.6-5.0) 07/01/18 12:30 Chloride 94 mmol/L (98-107) L 07/01/18 12:30 Carbon Dioxide 37 mmol/L (21-33) H 07/01/18 12:30 Anion Gap 8 (10-20) L 07/01/18 12:30 BUN 71 mg/dL (7-21) H 07/01/18 12:30 Creatinine 0.9 mg/dl (0.7-1.2) 07/01/18 12:30 Est GFR ( Amer) > 60 07/01/18 12:30 Est GFR (Non-Af Amer) > 60 07/01/18 12:30 Random Glucose 139 mg/dL (70-110) H 07/01/18 12:30 Calcium 9.2 mg/dL (8.4-10.5) 07/01/18 12:30 Phosphorus 3.8 mg/dL (2.5-4.5) 06/24/18 16:26 Magnesium 2.2 mg/dL (1.7-2.2) 07/01/18 12:30 Total Bilirubin 0.5 mg/dL (0.2-1.3) 07/01/18 12:30 AST 37 U/L (14-36) H D 07/01/18 12:30 ALT 56 U/L (7-56) 07/01/18 12:30 Alkaline Phosphatase 79 U/L (38-126) 07/01/18 12:30 Lactate Dehydrogenase 457 U/L (333-699) 06/26/18 06:00 NT-Pro-B Natriuret Pep 44443 pg/mL (0-450) H 06/25/18 06:09 Total Protein 5.3 g/dL (5.8-8.3) L 07/01/18 12:30 Albumin 2.8 g/dL (3.0-4.8) L 07/01/18 12:30 Globulin 2.5 gm/dL 07/01/18 12:30 Albumin/Globulin Ratio 1.2 (1.1-1.8) 07/01/18 12:30 Procalcitonin 0.43 NG/ML (0.19-0.49) 06/24/18 21:30 Urine Color Yellow (YELLOW) 06/25/18 02:00 Urine Appearance Clear (CLEAR) 06/25/18 02:00 Urine pH 6.0 (4.7-8.0) 06/25/18 02:00 Ur Specific [place] 1.020 (1.005-1.035) 06/25/18 02:00 Urine Protein Negative mg/dL (<30 mg/dL) 06/25/18 02:00 Urine Glucose (UA) Negative mg/dL (NEGATIVE) 06/25/18 02:00 Urine Ketones Negative mg/dL (NEGATIVE) 06/25/18 02:00 Urine Blood Negative (NEGATIVE) 06/25/18 02:00 Urine Nitrate Negative (NEGATIVE) 06/25/18 02:00 Urine Bilirubin Negative (NEGATIVE) 06/25/18 02:00 Urine Urobilinogen 0.2 E.U./dL (<1 E.U./dL) 06/25/18 02:00 Ur Leukocyte Esterase Negative [place]/uL (NEGATIVE) 06/25/18 02:00 Influenza Typ A,B (EIA) Negative for flu a/b (NEGATIVE) 06/24/18 17:10 Ur L.pneumophila Ag Negative (NEGATIVE) 06/25/18 02:00 - Hospital Course Hospital Course: Ms Jason, 78 F, with PMHx Stage IV metastatic ovarian carcinoma, recent chemot herapy, renal carcincoma, small cell lung cancer c/o shortness of breath x last few weeks and was sent to ED by Dr Lind. Associated with cough, severe fatigue, dyspnea. He was treated with antibiotics and prednisone outpatient without improvement. She was admitted in 1 month ago for sob. found to have a- fib RVR, micrococcus bacteremia (1 bottle), 2nd set negative, no vegetation per echo, removed the pheural catherter, treated with IV rocephin x 10 days. Hospital Course: Ms. 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 #CHF, Aortic aneurysm, HTN, PVD, A fib on eliquis #Hx DVT #COPD, recurrent pleural effusion with chronic R plurX #Sacral pressure ulcer -PleurX removed from left side -Stage IV metastatic ovarian carcinoma, mullerian origin, mets to lung, currently just finished gemcitabine and Avastin -small cell lung cancer, s/p carboplatinum and etoposide, not clinically active -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, treated with interferon (27 years ago) -continue abx per ID for empiric treatment of HCAP * continue Doxycycline and Merrem day 5 for 4-7 days of therapy -f/u pleural fluid cytology -steroids are being tapered down -continue outpatient diuretic lasix 20mg po qd -> this was switched to bid by pulmonary -left elbow edema was evaluated - duplex 06/28/2018 did not show any evidence for DVT -seen by PT today - recommend home with services -On eliquis 5mg po bid for AFib -optiform and silvadene to sacral pressure ulcer Dispo: Seen by physical therapy - recommend home with services Discharge Exam - Head Exam Head Exam: NORMAL INSPECTION - Additional Findings Additional findings: - Constitutional Appears: No Acute Distress Additional comments: on 4L, cough, able to complete sentences w/o pause - Head Exam Head Exam: ATRAUMATIC, NORMAL INSPECTION, NORMOCEPHALIC - Eye Exam Eye Exam: EOMI, Normal appearance, PERRL. absent: Scleral icterus Pupil Exam: NORMAL ACCOMODATION - ENT Exam ENT Exam: Mucous Membranes Moist - Neck Exam Additional comments: supple - Respiratory Exam Respiratory Exam: Rhonchi, Wheezes (mild), NORMAL BREATHING PATTERN - Cardiovascular Exam Cardiovascular Exam: REGULAR RHYTHM, +S1, +S2. absent: Systolic Murmur - GI/Abdominal Exam GI & Abdominal Exam: Normal Bowel Sounds, Soft. absent: Distended, Firm, Guarding, Rigid, Tenderness - Extremities Exam Extremities exam: Negative for: calf tenderness, pedal edema left medial elbow 4cm fluid collection circular, no redness, no pain on palpation, no warmth - Back Exam Back exam: absent: CVA tenderness (L), CVA tenderness (R) - Neurological Exam Neurological exam: Alert, Oriented x3 - Psychiatric Exam Psychiatric exam: Normal Affect, Normal Mood - Skin Skin Exam: Dry, Warm Discharge Plan - Discharge Medications Prescriptions: Furosemide [Lasix] 20 mg PO Q12H #60 tab Metoprolol Succinate XL [Toprol XL] 100 mg PO BRK #30 tab predniSONE [predniSONE Tab] 10 mg PO DAILY 9 Days #11 tab - Follow Up Plan Condition: GUARDED Disposition: HOME/ ROUTINE Instructions: Pleural Effusion, Pneumonia, Adult (DC), Wound Care (DC) Additional Instructions: Please follow-up with Dr Lind in 2 weeks. Please follow-up with a senior mechanical estimator in 2 weeks - information for senior mechanical estimator Dr Love has been provided. You will be given scripts for the following medications as either they are new or you have run out of them: 1. Prednisone -> days 1-3: 20mg each day, days 4-6: 10mg each day, days 7-9: 5mg each day 2. Metoprolol Succinate 100mg take 1 tablet each day in the morning 3. Lasix 20mg take 1 tablet in the morning and 1 tablet in the evening Please note the change to your Lasix - it is now twice a day. Please resume your other home medications - this includes any inhalers you use at home as well as your: eliquis, aspirin, vitamin B6, cardizem, montelukast If symptoms return please go to your nearest emergency department. Referrals: Tania Lind MD [Primary Care Provider] - Concepcion Love MD [Staff Provider] -
--- NOTE | 2018-07-01 15:51 | CP.PCM.PN ---
Subjective - Date & Time of Evaluation Date of Evaluation: 07/01/18 Time of Evaluation: 09:55 - Subjective Subjective: No fevers, still with cough and cannot seem to bring phlegm up, no chest pain, no nausea, no diarrhea. Objective - Vital Signs/Intake and Output Vital Signs (last 24 hours): Temp Pulse Resp BP Pulse Ox 97.8 F 89 20 127/57 L 98 06/30/18 16:36 06/30/18 17:00 06/30/18 16:36 06/30/18 17:00 06/30/18 16:36 - Medications Medications: Current Medications Acetylcysteine (Acetylcysteine 20%) 4 ml IH [id number] [facility] Last Admin: 06/30/18 13:59 Dose: 4 ml Apixaban (Eliquis) 5 mg PO BID [facility]; Protocol Last Admin: 06/30/18 17:00 Dose: 5 mg Aspirin (Ecotrin) 81 mg PO MWF [facility] Last Admin: 06/30/18 10:17 Dose: 81 mg Cholecalciferol (Vitamin D) 1,000 intlu PO DAILY [facility] Last Admin: 06/30/18 10:15 Dose: 1,000 intlu Diltiazem HCl (Cardizem) 30 mg PO QID [facility] Last Admin: 06/30/18 17:00 Dose: 30 mg Doxycycline Hyclate (Doryx) 100 mg PO Q12 [facility]; Protocol Stop: 07/03/18 22:01 Last Admin: 06/30/18 10:13 Dose: 100 mg Furosemide (Lasix) 20 mg PO BID [facility] Last Admin: 06/30/18 17:00 Dose: 20 mg Meropenem (Merrem Iv 1 Gm Premix) 1 gm in 50 mls @ 100 mls/hr IVPB Q8 [facility]; Protocol Stop: 07/03/18 22:01 Last Admin: 06/30/18 16:03 Dose: 100 mls/hr Ipratropium [place] (Atrovent) 0.5 mg IH [id number] [id number] Last Admin: 06/30/18 13:59 Dose: 0.5 mg Levalbuterol HCl (Xopenex) 0.63 mg IH [id number] [facility] Last Admin: 06/30/18 13:59 Dose: 0.63 mg Levalbuterol HCl (Xopenex) 0.63 mg IH [id number] PRN PRN Reason: Shortness of Breath Last Admin: 06/25/18 06:15 Dose: 0.63 mg Magnesium Oxide (Mag-Ox) 400 mg PO DAILY [facility] Last Admin: 06/30/18 10:13 Dose: 400 mg Methylprednisolone (Solu-Medrol) 40 mg IVP Q12 [facility] Last Admin: 06/30/18 10:12 Dose: 40 mg Metoprolol Succinate (Toprol Xl) 100 mg PO BRK [facility] Last Admin: 06/30/18 09:30 Dose: 100 mg Montelukast Sodium (Singulair) 10 mg PO DAILY [facility] Last Admin: 06/30/18 10:17 Dose: 10 mg Pyridoxine HCl (Vitamin B6 50 Mg Tab) 100 mg PO DAILY [facility] Last Admin: 06/30/18 10:12 Dose: 100 mg Silver Sulfadiazine (Silvadene 1% 25 Gm) 0 gm TP BID [facility] Last Admin: 06/30/18 18:08 Dose: 1 gm Sodium Chloride ([place] Nasal [place]) 0 ml NS Q4 PRN PRN Reason: Nasal congestion Last Admin: 06/27/18 23:10 Dose: 1 spr Zolpidem Tartrate (Ambien) 5 mg PO HS PRN; Protocol PRN Reason: Insomnia Last Admin: 06/29/18 22:42 Dose: 5 mg - Labs Labs: 06/30/18 06:00 06/30/18 06:00 PT 14.5 SECONDS (9.4-12.5) H 06/24/18 20:29 INR 1.27 06/24/18 20:29 APTT 32.0 Seconds (25.1-36.5) 06/24/18 20:29 - Constitutional Appears: Chronically Ill - Head Exam Head Exam: NORMAL INSPECTION - Respiratory Exam Respiratory Exam: Decreased Breath Sounds - Cardiovascular Exam Cardiovascular Exam: +S1, +S2 - GI/Abdominal Exam GI & Abdominal Exam: Soft. absent: Tenderness Assessment and Plan - Assessment and Plan (Free Text) Plan: Assessment right sided effusion with probable HCAP history of sepsis due to micrococcus bacteremia, consider due to right sided port-a-cath, growing Micrococcus on top of right sided healthcare-associated pneumonia; PleurX catheter has been removed from the left side stage 3B ovarian cancer with metastases CAD small cell lung cancer rheumatoid arthritis chronic CHF chronic right sided pleural effusion S/P pleurX placement S/P nephrectomy Plan on Doxycycline and Merrem day 7 for up to 7 days of therapy overall prognosis is poor
== END 2018-07-01 17:05 | disposition home health service (06) | DRG 190 ==
LOC: ED 13:25 → ERH 16:56 → 3RNO 21:13
PROVIDERS: ADMIT Family Medicine; ATTEND Family Medicine
PROC: 3E0F7GC Introduction of Other Therapeutic Substance into Respiratory Tract, Via Natural or Artificial Opening (ICD-10-PCS; 2018-06-25)
PROC: 0W9B3ZZ Drainage of Left Pleural Cavity, Percutaneous Approach (ICD-10-PCS; principal; 2018-06-25 16:30)
DX: J44.1 Chronic obstructive pulmonary disease with (acute) exacerbation (principal); J18.9 Pneumonia, unspecified organism; C78.00 Secondary malignant neoplasm of unspecified lung; J91.0 Malignant pleural effusion; C56.9 Malignant neoplasm of unspecified ovary; I42.9 Cardiomyopathy, unspecified; J44.0 Chronic obstructive pulmonary disease with (acute) lower respiratory infection; I48.2 Chronic atrial fibrillation; I25.10 Atherosclerotic heart disease of native coronary artery without angina pectoris; I50.9 Heart failure, unspecified; I11.0 Hypertensive heart disease with heart failure; I27.20 Pulmonary hypertension, unspecified; M35.3 Polymyalgia rheumatica; L89.159 Pressure ulcer of sacral region, unspecified stage; M06.9 Rheumatoid arthritis, unspecified; I73.9 Peripheral vascular disease, unspecified; M19.042 Primary osteoarthritis, left hand; M19.041 Primary osteoarthritis, right hand; Y95 Nosocomial condition; Z85.528 Personal history of other malignant neoplasm of kidney; Z90.5 Acquired absence of kidney; I25.2 Old myocardial infarction; Z86.718 Personal history of other venous thrombosis and embolism; Z95.5 Presence of coronary angioplasty implant and graft; Z87.891 Personal history of nicotine dependence; Z79.01 Long term (current) use of anticoagulants

== ENCOUNTER 2018-06-24 14:40 | Outpatient (CLI) | payer MEDICARE | END 2018-06-24 14:41 | disposition home or self-care (01) | LOC: OPLAB 14:40 ==

== ENCOUNTER 2018-07-07 11:52 | Inpatient (IN) | payer MEDICARE ==
[2018-07-07 12:06] VITALS: BMI 21.4
[2018-07-07] MEDS ORDERED: Vancomycin 1gm in NS 250ml 1 GM/250 ML BAG IVPB STA (12:53)
[2018-07-07 13:09] LABS: BASO # 0.01 K/mm3 (0.0-2.0); BASO % 0.1 % (0.0-3.0); EOS % 0.1 % (1.5-5.0); GRAN # 15.59 (1.4-6.5); GRAN % 95.1 % (50.0-68.0); HEMOGLOBIN 10.6 g/dL (12.0-16.0); LYMPH # 0.5 (1.2-3.4); LYMPH % 3.1 % (22.0-35.0); MEAN CELL VOLUME 103.5 fl (80.0-105.0); MEAN CORPUSCULAR HEMOGLOBIN 33.4 pg (25.0-35.0); MEAN CORPUSCULAR HGB CONC 32.3 g/dl (31.0-37.0); MEAN PLATELET VOLUME 10.3 fl (7.0-11.0); MONO # 0.3 (0.1-0.6); MONO % 1.6 % (1.0-6.0); PLATELET COUNT 198 10^3/uL (120.0-450.0); RBC 3.17 10^6/uL (3.5-6.1); RED CELL DISTRIBUTION WIDTH 15.9 % (11.5-14.5); WHITE BLOOD COUNT 16.4 10^3/uL (4.5-11.0)
[2018-07-07 13:17] LABS: INR 1.66; PARTIAL THROMBOPLASTIN TIME 30.8 Seconds (26.9-38.3); PROTHROMBIN TIME 18.8 SECONDS (9.4-12.5)
[2018-07-07 13:25] LABS: ALB/GLOB RATIO 1.2 (1.1-1.8); ALBUMIN 3.2 g/dL (3.0-4.8); ALT/SGPT 41 U/L (7-56); AST/SGOT 37 U/L (14-36); BLOOD UREA NITROGEN 59 mg/dL (7-21); CALCIUM 9.1 mg/dL (8.4-10.5); GFR NON-AFRICAN AMERICAN 53
--- NOTE | 2018-07-07 13:48 | RAD ---
Date of service: 07/07/2018 HISTORY: admission COMPARISON: 06/25/2018 FINDINGS: LUNGS: There is no change in the right-sided upper and lower lobe infiltrates. PLEURA: No significant pleural effusion identified, no pneumothorax apparent. CARDIOVASCULAR: Extensive aortic calcification and tortuosity Mild cardiomegaly no pulmonary vascular congestion. OSSEOUS STRUCTURES: No significant abnormalities. VISUALIZED UPPER ABDOMEN: Normal. OTHER FINDINGS: Right-sided Port-A-Cath IMPRESSION: There is no change in the right-sided upper and lower lobe infiltrates.
[2018-07-07 13:52] LABS: LYMPHOCYTE 3 % (22.0-35.0); MONOCYTE 4 % (1.0-6.0); NEUTROPHIL 93 % (50.0-70.0)
--- NOTE | 2018-07-07 13:54 | ED PDOC ---
Arrival/HPI - General Chief Complaint: Lower Extremity Problem/Injury Time Seen by Provider: 07/07/18 12:05 Historian: Patient - History of Present Illness Narrative History of Present Illness (Text): 07/07/18 13:42 78 y/o female with PMH of PAD (s/p right leg stent 2014), stage IV metastatic ovarian carcinoma, renal carcincoma, small cell lung cancer, thoracic aortic aneurysm, CAD, Afib (on Eliquis), and DVT presents to ED c/o bilateral lower extremity pain that has been gradually worsening over the last few days. Pt was discharged from the hospital on 07/01/18 after a 7 day stay for left sided pleural effusion and pneumonia. Since that time, pt has had worsening pain to bilateral feet, with a cold pale right foot and a warm, swollen, tender left foot with small medial ankle wound. States her SOB has been stable since discharge, on [place] O2 at home. Takes home medications as prescribed. Denies fevers, chills, chest pain, palpitations, diaphoresis, abdominal pain, N/V, numbness, weakness, paresthesias, or any other associated complaints. PMD: Dr. Lind Past Medical History - Provider Review Nursing Documentation Reviewed: Yes - Infectious Disease Hx of Infectious Diseases: None - Cardiac Hx Cardiac Disorders: Yes (CAD) - Pulmonary Hx Respiratory Disorders: Yes - Neurological Hx Neurological Disorder: No - HEENT Hx HEENT Disorder: Yes Hx Cataracts: Yes - Renal Hx Renal Disorder: No - Endocrine/Metabolic Hx Endocrine Disorders: No - Hematological/Oncological Hx Cancer: Yes (Ovarian CA) - Integumentary Hx Dermatological Disorder: No - Musculoskeletal/Rheumatological Hx Falls: Yes - Gastrointestinal Hx Gastrointestinal Disorders: No - Genitourinary/Gynecological Hx Genitourinary Disorders: No - Psychiatric Hx Psychophysiologic Disorder: No Hx Substance Use: No - Surgical History Hx Cholecystectomy: Yes Hx Coronary Stent: Yes - Anesthesia Hx Anesthesia: Yes Hx Anesthesia Reactions: No Hx Malignant Hyperthermia: No - Suicidal Assessment Feels Threatened In Home Enviroment: No Family/Social History - Physician Review Nursing Documentation Reviewed: Yes Family/Social History: No Known Family HX Smoking Status: Former Smoker Hx Alcohol Use: Yes (social) Hx Substance Use: No Allergies/Home Meds Allergies/Adverse Reactions: Allergies No Known Allergies Allergy (Verified 05/20/18 12:03) Home Medications: Home Meds Medication Instructions Recorded Confirmed Zolpidem [Ambien] 5 mg PO HS PRN 07/07/18 07/07/18 Review of Systems - Physician Review All systems were reviewed & negative as marked: Yes - Review of Systems Constitutional: Normal. absent: Fevers Eyes: Normal. absent: Vision Changes ENT: Normal. absent: Sore Throat, Sinus Congestion Respiratory: SOB. absent: Cough Cardiovascular: Normal. absent: Chest Pain, Palpitations, Calf Pain, Orthopnea, Syncope Gastrointestinal: Normal. absent: Abdominal Pain, Stool Changes, Nausea, Vomiting, Appetite Changes Genitourinary Female: Normal. absent: Dysuria, Frequency Musculoskeletal: Arthralgias (bilateral lower leg pain). absent: Back Pain Skin: Cellulitis (left medial lower leg with small wound, swelling), Other (cold pale right foot) Neurological: Normal Endocrine: Normal Hemo/Lymphatic: Normal Psychiatric: Normal Physical Exam Vital Signs Reviewed: Yes Vital Signs Temp Pulse Resp BP Pulse Ox 07/07/18 12:01 97.9 F 64 18 109/60 100 Temperature: Afebrile Blood Pressure: Normal Pulse: Regular Respiratory Rate: Normal Appearance: Positive for: Well-Appearing, Non-Toxic, Comfortable Pain Distress: None Mental Status: Positive for: Alert and Oriented X 3 - Systems Exam Head: Present: Atraumatic, Normocephalic Pupils: Present: PERRL Extroacular Muscles: Present: EOMI Conjunctiva: Present: Normal Mouth: Present: Moist Mucous Membranes Neck: Present: Normal Range of Motion. No: Meningeal Signs, MIDLINE TENDERNESS, Paraspinal Tenderness Respiratory/Chest: Present: Decreased Breath Sounds (bilaterally), Rales (left lung base). No: Respiratory Distress, Accessory Muscle Use Cardiovascular: Present: Regular Rate and Rhythm, Normal S1, S2, Peripheal Pulses Present. No: Murmurs Abdomen: Present: Normal Bowel Sounds. No: Tenderness, Distention, Peritoneal Signs, Rebound, Guarding Back: Present: Normal Inspection. No: CVA Tenderness, Paraspinal Tenderness Upper Extremity: Present: Normal ROM, NORMAL PULSES, Neurovascularly Intact, Capillary Refill < 2s, Other (Multiple bruises along bilateral upper extremities of differing ages). No: Cyanosis, Edema, Temperature Abnormalties Lower Extremity: Present: Cyanosis (right foot cold to touch, pale, cyanosis), Normal ROM, Tenderness (left lower leg and foot), Swelling (left lower leg and foot, mostly medial), Erythema (left lower leg and foot, mostly medial), Temperature Abnormalties (left lower extremity warm to touch; right lower extremity cool to touch; unable to palpate right pedal pulse, left pedal pulse attained by doppler). No: Edema, Deformity, Neurovascularly Intact (sensation intact bilaterally; right unable to palpate or doppler pulses; left pulses unable to palpate, but attained by doppler) Neurological: Present: GCS=15, CN II-XII Intact, Speech Normal, Motor Func Grossly Intact, Normal Sensory Function, Gait Normal Skin: Present: Warm, Dry. No: Rashes, Normal Color (discoloration of bilateral lower legs and bruising of bilateral upper extremities) Lymphatic: No: Cervical Adenopathy Psychiatric: Present: Alert, Oriented x 3, Normal Insight, Normal Concentration, Normal Affect, Normal Mood Medical Decision Making ED Course and Treatment: Initial Plan: * CBC, CMP * Coags * Troponin * UA, culture * Blood Cultures * ABG * CXR * EKG * FREDY * Bilateral Venous Duplex * IV Vancomycin On initial exam, patient in no acute distress, ill appearing but comfortable. C/o bilateral leg pain. No complaints of chest pain or SOB. Bilateral pedal pulses not palpable by hand. Left pedal pulse found with arterial doppler, right unable to be dopplered by me or ED attending Dr. Charles. Femoral pulses palpable bilaterally. 12:[address] Lind, who is aware patient is here in ED. Informed me of patient's complicated medical history and recommends vascular consult with Dr. Mario Yee. 12:50 Attempted multiple calls to Dr. Mario Yee, will order FREDY and Venous Duplex to assess vascular status of bilateral lower extremities. Labwork remarkable for leukocytosis, anemia [pt with baseline anemia, last 10.5], hypokalemia, hyperglycemia, hypochloremia, hypercapnia KCl ordered to replace potassium EKG shows Afib with normal rate, patient on Eliquis with history of Afib Troponin 0.03 CXR shows stable pulmonary infiltrates from prior admission 13:30 Case and diagnostic testing results discussed in detail with ED attending Dr. Charles throughout clinical course in ED, who agrees with plan of care and disposition. Dr. Charles examined patient multiple times at bedside throughout stay in ED. 15:00 On re-evaluation, patient resting comfortably in stretcher with stable vital signs on nasal cannula. No acute respiratory distress, speaking in full sentences without difficulty. Right foot with improved coloring, no longer pale or cyanotic. Pt continues to have full sensation, ROM, and strength. Pulses continue to be non-palpable. Left foot exam unchanged. 15:!5 ABG shows pH 7.53 with elevated HCO3 Lactate 2.0, patient afebrile, no tachycardia or tachypnea. No indication for code sepsis. Pt started on IV Vancomycin 15:35 Diagnostic testing results discussed with Dr. Lind, who recommends inpatient admission to telemetry floor. Pending official FREDY read. Asks for consults to Dr. Love, Dr. Yee, and Dr. Rahman. Asks for procalcitonin level. No further orders at this time. Patient made aware of change in disposition. Patient resting comfortably in stretcher sipping tea. A&Ox3, laughing and smiling with staff and visitors. Denies any physical complaints. Asking to eat. Vitals signs stable at this time. 15:[address] Call [address] out [address] Lyles to notify of admission without response. - Lab Interpretations Lab Results: PT 18.8 SECONDS (9.4-12.5) H 07/07/18 12:50 INR 1.66 07/07/18 12:50 APTT 30.8 Seconds (26.9-38.3) 07/07/18 12:50 Total Bilirubin 0.7 mg/dL (0.2-1.3) 07/07/18 12:50 AST 37 U/L (14-36) H 07/07/18 12:50 ALT 41 U/L (7-56) 07/07/18 12:50 Alkaline Phosphatase 99 U/L (38-126) 07/07/18 12:50 Total Protein 5.8 g/dL (5.8-8.3) 07/07/18 12:50 Albumin 3.2 g/dL (3.0-4.8) 07/07/18 12:50 Globulin 2.7 gm/dL 07/07/18 12:50 Albumin/Globulin Ratio 1.2 (1.1-1.8) 07/07/18 12:50 07/07/18 12:50 07/07/18 12:50 Lab Results 07/07/18 15:00: pCO2 42, pO2 103.0 H, HCO3 35.1 H, ABG pH 7.53 H, ABG Total CO2 36.4 H, ABG O2 Saturation 99.4 H, ABG Base Excess 11.2 H, ABG Potassium 3.0 L, Glucose 161 H, Lactate 2.0, FiO2 32.0, Sodium 135.0, Chloride 98.0, Arterial Blood Potassium 3.0 L 07/07/18 13:10: Troponin I 0.03 D 07/07/18 12:50: Sodium 134, Potassium 3.4 L, Chloride 89 L, Carbon Dioxide 36 H, Anion Gap 12, BUN 59 H, Creatinine 1.0, Est GFR ( Amer) > 60, Est GFR (Non-Af Amer) 53, Random Glucose 215 H, Calcium 9.1, Total Bilirubin 0.7, AST 37 H, ALT 41, Alkaline Phosphatase 99, Total Protein 5.8, Albumin 3.2, Globulin 2.7, Albumin/Globulin Ratio 1.2 07/07/18 12:50: PT 18.8 H, INR 1.66, APTT 30.8 07/07/18 12:50: WBC 16.4 H D, RBC 3.17 L, Hgb 10.6 L, Hct 32.8 L, MCV 103.5, MCH 33.4, MCHC 32.3, RDW 15.9 H, Plt Count 198, MPV 10.3, Gran % 95.1 H, Lymph % (Auto) 3.1 L, [place] % (Auto) 1.6, Eos % (Auto) 0.1 L, Baso % (Auto) 0.1, Gran # 15.59 H, Lymph # (Auto) 0.5 L, [place] # (Auto) 0.3, Eos # (Auto) 0.0, Baso # (Auto) 0.01, Neutrophils % (Manual) 93 H, Lymphocytes % (Manual) 3 L, Monocytes % (Manual) 4 I have reviewed the lab results: Yes Interpretation: Abnormal lab values - RAD Interpretation Narrative RAD Interpretations (Text): CXR: Stable Infiltrates Bilateral Venous Duplex Lower Extremity: Negative for DVT Radiology Orders: 07/07/18 12:16 CHEST PORTABLE [RAD] Stat 07/07/18 12:52 LOWER EXT ART NON-INV COMPL [US] Stat 07/07/18 12:58 DUPLEX LOWER EXTRM VEIN BILAT [US] Stat Secondary Connector Armature: Radiologist - EKG Interpretation EKG Interpretation (Text): 07/07/18 16:28 Rate 100; Afib; RBBB; No STEMI, nonspecific ST/T wave changes Interpreted by ED Physician: Yes Type: 12 lead EKG Comparison: Similar to previous EKG (unchanged from 06/24/18) - Medication Orders Current Medication Orders: Vancomycin HCl (Vancomycin 1gm) 1 gm in 250 mls @ 167 mls/hr IVPB STAT STA; Protocol Stop: 07/07/18 14:22 Disposition/Present on Arrival - Present on Arrival Any Indicators Present on Arrival: No History of DVT/PE: No History of Uncontrolled Diabetes: No Urinary Catheter: No History of Decub. Ulcer: No History Surgical Site Infection Following: None - Disposition Have Diagnosis and Disposition been Completed?: Yes Diagnosis: Atrial fibrillation, Left leg cellulitis, Leukocytosis, PAD (peripheral artery disease), Hypokalemia Disposition: HOSPITALIZED Disposition Time: 15:00 Patient Plan: Admission Patient Problems: Current Active Problems Problem Status Onset Atrial fibrillation Acute Hypokalemia Acute Left leg cellulitis Acute Leukocytosis Acute PAD (peripheral artery disease) Acute Condition: STABLE
[2018-07-07] MEDS ORDERED: Potassium Chloride 20 mEq ER Tab PO STA (14:25)
[2018-07-07 15:14] LABS: ARTERIAL BLOOD GAS HCO3 35.1 mmol/L (21-28); ARTERIAL BLOOD GAS O2 SAT 99.4 % (95-98); ARTERIAL BLOOD GAS PCO2 42 mm/Hg (35-45); ARTERIAL BLOOD GAS PH 7.53 (7.35-7.45); ARTERIAL BLOOD GAS TCO2 36.4 mmol.L (22-28)
--- NOTE | 2018-07-07 17:22 | US ---
PROCEDURE: Lower extremity FREDY exam HISTORY: Peripheral vascular disease. Ischemic right foot. Previous right lower extremity endovascular intervention in 2015 PHYSICIAN(S): Maroi Yee MD. FINDINGS: The right resting ABIs severely abnormal, 0.28. The left resting FREDY is mildly abnormal, 0.64 The brachial systolic pressures are symmetric. The high thigh PVR waveforms are relatively normal and symmetric. There is a 31 mm difference between the high thigh pressures, lower on the right. This could represent right iliac and/or common femoral artery disease. The calf PVR waveforms are severely blunted bilaterally. There is a 31 mm gradient across the right knee and a 46 mm gradient across the left knee. The findings are consistent with bilateral distal SFA, popliteal, and/or trifurcation disease. The ankle and metatarsal waveforms are severely blunted and nearly flat bilaterally IMPRESSION: 1. Severely abnormal right FREDY at rest. 2. Bilateral distal SFA, popliteal, and/or trifurcation disease 3. Possible right iliac and/or common femoral artery disease
--- NOTE | 2018-07-07 17:24 | US ---
HISTORY: Leg pain and swelling. Evaluate for DVT PHYSICIAN(S): Mario Yee MD. TECHNIQUE: Duplex sonography and color-flow Doppler with graded compression were used to evaluate the deep venous systems of both lower extremities. The exam is somewhat limited by FINDINGS: The visualized deep venous systems of both lower extremities are sonographically normal and compressible. Normal wave forms and augmentation are seen. There is no sonographic evidence for deep venous thrombosis in the visualized segments of both lower extremities. The tibial veins are not well seen IMPRESSION: No sonographic evidence for deep venous thrombosis in the visualized segments of both lower extremities. Somewhat limited venous study.
[2018-07-07] MEDS ORDERED: Heparin25000 units/250ml 1/2NS 25,000 UNITS/250 ML BAG IV PRN (18:28)
[2018-07-07] MEDS: Albuterol-Ipratrop 3 mg / 0.5 (3 ml) UD IH SCH (20:11)
[2018-07-07] MEDS: Heparin25000 units/250ml 1/2NS 25,000 UNITS/250 ML BAG IV PRN (20:15)
[2018-07-07] MEDS: Mupirocin 2% Ointment 15 GM TUBE TOP SCH (20:19)
[2018-07-07 20:43] LABS: VENOUS BLOOD GAS BASE EXCESS 12.4 mmol/L (0.0-2.0); VENOUS BLOOD GAS PO2 88 mm/Hg (30-55); VENOUS BLOOD PH 7.42 (7.32-7.43)
[2018-07-07 21:04] LABS: TROPONIN I 0.03 ng/mL
[2018-07-07] MEDS: Linezolid 600 mg in D5W 300 ml 600 MG/300 ML BAG IVPB SCH (22:16)
--- NOTE | 2018-07-07 23:05 | CARD ---
APPROVED REPORT Date of service: 07/07/2018 EKG Measurement Heart [id number] <Conclusion> Atrial fibrillation with a with premature ventricular or aberrantly conducted complexes Right bundle branch block NDSTT abnormalities Abnormal ECG
[2018-07-08 00:15] LABS: VENOUS BLOOD GAS BASE EXCESS 10.8 mmol/L (0.0-2.0); VENOUS BLOOD GAS PO2 47 mm/Hg (30-55); VENOUS BLOOD PH 7.51 (7.32-7.43)
[2018-07-08] MEDS: Albuterol-Ipratrop 3 mg / 0.5 (3 ml) UD IH SCH ×3 (00:27→08:10)
--- NOTE | 2018-07-08 01:38 | HP ---
DATE OF EXAM: 07/07/2018 CHIEF COMPLAINT: The patient is admitted to the emergency room with progressively worsening lower extremity pain, left greater than the right, associated with swelling, ulceration, and redness of both lower extremities. Ulceration is more pronounced in the ankle of the left lower extremities. Right foot feels colder than the left foot, and the patient was seen in the home by the visiting nurses, advised to come to the emergency room because of the findings. HISTORY OF PRESENT ILLNESS: The patient has a history of peripheral arterial disease, status post right leg stent in 2014. The patient has active stage IV metastatic ovarian cancer, for which she is on systemic chemotherapy, last treatment given about 2 months ago; history of small cell lung carcinoma, currently in remission after having 6 cycles of carboplatin and etoposide chemotherapy and concurrent radiation; history of thoracic aortic aneurysm; history of AFib, on Eliquis and DVT, presents now with progressively worsening lower extremity pain that has been worsening over the past few days. The patient was recently discharged from the hospital on 07/01/2018, after a 7-day stay in the hospital for left-sided pleural effusion and pneumonia. Since that time, the patient has gotten worse over the past several days with a cold, pale, right foot and a warm, swollen, tender left leg with small medial ankle wound sores. The patient says that shortness of breath has remained stable. Since discharge, she is on nasal cannula oxygen at home. The patient takes home medicines as prescribed and denies any active bleeding, except for this new onset of pain in both lower extremities, left greater than the right. The patient tells me that she still has some productive phlegm, and she has been taking the prednisone, feeling better. PAST MEDICAL HISTORY: Significant for metastatic ovarian carcinoma, currently on Avastin and gemcitabine with dramatic response to the treatment. History of small cell lung carcinoma, status post concurrent chemoradiation; did not get prophylactic brain radiation as the patient refused and currently disease free from the small cell lung cancer point of view. History of extensive renal cell carcinoma, stage IV, status post resection of the kidney, is currently in remission from her metastatic cancer when she had initially presented 27 years ago with diffuse lung metastasis. The patient was treated with interferon for 8 years and the lesions spontaneously disappeared. REVIEW OF SYSTEMS: Twelve-system review of systems was done, all of which were negative except for what is mentioned in the HPI. The patient denies any fevers, chills, nausea, vomiting, hemoptysis prior to this admission. ALLERGIES: THE PATIENT HAS NO KNOWN ALLERGIES. PHYSICAL EXAMINATION: VITAL SIGNS: Stable and reviewed as stated on the chart. T-max is 97.9, pulse is 64, respirations 18, blood pressure 109/60, pulse ox is 100%. The patient is afebrile. HEENT: Head is normocephalic, atraumatic. Conjunctivae are pale. Sclerae are anicteric. Extraocular muscles are intact without any obvious abnormalities. Examination of the oropharynx reveals no oropharyngeal lesions. Mucous membranes are moist. Tongue is moist without any ulcerations. NECK: Supple. No meningeal signs are noted. LUNGS: Reveal decreased breath sounds bilaterally with rales on the left side. No other accessory muscles were noted on respiratory exam. CARDIOVASCULAR SYSTEM: Reveals S1 and S2 to be normal. No gallop or murmur is heard. ABDOMEN: Soft, nontender. Bowel sounds are present. No rebound, rigidity, or guarding is noted. EXTREMITIES: Upper extremity range of motion is good. Normal pulses. Neurovascular findings are negative. Capillary refill 25. Other multiple organs show bilateral upper extremity edema of different ages. No edema at this point in time. Examination of the lower extremities reveals cyanosis of the right foot, which is cold to touch with pale ecchymoses in the dorsum of the feet; normal range of motion; tenderness over the left lower extremity, especially over the leg and foot; swelling of the left leg, which is mostly medial; erythema of the left leg and foot. Currently this should be important for her to be seen by the family in view of her worsening condition. Temperature abnormalities between the right and left foot noted. Right lower extremity is cold to touch. Unable to palpate right pedal pulse. Left pedal pulse is obtained by Doppler. No significant edema noted. NEUROLOGIC: Reveals higher functions to be normal. No focal deficits are noted. LYMPHATICS: Reveal no cervical adenopathy. PSYCHIATRIC: The patient is awake, alert and oriented, in no acute distress. ASSESSMENT NOTES AND PLAN: CBC, CMP, coags, troponin, urine culture, blood cultures, ABG, chest x-ray, EKG have been ordered. The patient is going to start with one dose of IV vancomycin, was awaiting for all the cultures. The patient is also going to get procalcitonin done into the blood work that has already been ordered earlier in the emergency room. The patient is going to be interviewed and examined by Dr. Mario Yee, Vascular radiologist, who is going to read the radiology reports. I have also put in a consult for Dr. Chang from a Vascular Surgical point of view to see if there is any role for minimal surgery to alleviate the blockage if indeed there is one. Consultation with Infectious Disease has been obtained, as with Dr. Chang. We will follow the patient and make appropriate recommendations. The patient will be followed on a daily basis. Please make a note, this is a complex patient with multiple comorbid medical issues. Time spent with the patient is greater than 80 minutes. Tania Lind MD
--- NOTE | 2018-07-08 03:20 | CP.PCM.PN ---
Subjective - Date & Time of Evaluation Date of Evaluation: 07/08/18 Time of Evaluation: 03:19 - Subjective Subjective: # 20 angiocath was inserted in right hand dorsum. Patient has no complaints now. Vital signs are stable. Objective - Vital Signs/Intake and Output Vital Signs (last 24 hours): Temp Pulse Resp BP Pulse Ox 97.6 F 60 22 101/70 97 07/07/18 23:30 07/07/18 23:30 07/07/18 23:30 07/07/18 23:30 07/07/18 23:30 - Medications Medications: Current Medications Albuterol/Ipratropium (Duoneb 3 Mg/0.5 Mg (3 Ml) Ud) 3 ml IH [id number] [facility] Last Admin: 07/08/18 01:04 Dose: Not Given Cholecalciferol (Vitamin D) 1,000 intlu PO DAILY [facility] Diltiazem HCl (Cardizem) 30 mg PO QID [facility] Last Admin: 07/07/18 22:13 Dose: 30 mg Furosemide (Lasix) 20 mg IVP Q12 [facility] Last Admin: 07/07/18 22:13 Dose: 20 mg Heparin Sodium/Sodium Chloride (Heparin 82234 Units/250ml 1/2 Normal Saline) 25,000 units in 250 mls @ 9 mls/hr IV .Q24H PRN; Protocol PRN Reason: ADJUST RATE PER PROTOCOL Last Admin: 07/07/18 20:15 Dose: 9 mls/hr Linezolid (Zyvox 600mg/300ml D5w) 600 mg in 300 mls @ 200 mls/hr IVPB Q12 [facility]; Protocol Stop: 07/14/18 22:01 Last Admin: 07/07/18 22:16 Dose: 200 mls/hr Montelukast Sodium (Singulair) 10 mg PO DAILY [facility] Mupirocin (Bactroban Ointment) 1 gm TOP BID [facility] Last Admin: 07/07/18 20:19 Dose: 1 applic Prednisone (Prednisone Tab) 10 mg PO DAILY [facility] Pyridoxine HCl (Vitamin B6 50 Mg Tab) 100 mg PO DAILY [facility] - Labs Labs: 07/07/18 12:50 07/07/18 12:50 PT 18.8 SECONDS (9.4-12.5) H 07/07/18 12:50 INR 1.66 07/07/18 12:50 APTT 30.8 Seconds (26.9-38.3) 07/07/18 12:50
[2018-07-08 05:57] LABS: PH,URINE 6.5 (4.7-8.0); URINE BILIRUBIN NEGATIVE (NEGATIVE); URINE BLOOD NEGATIVE (NEGATIVE); URINE GLUCOSE (UA) NEGATIVE (NEGATIVE); URINE LEUKOCYTE ESTERASE NEGATIVE Leu/uL (NEGATIVE); URINE PROTEIN NEGATIVE mg/dL (<30 mg/dL); URINE UROBILINOGEN 0.2 E.U./dL (<1 E.U./dL)
[2018-07-08 06:03] LABS: URINE APPEARANCE CLEAR (CLEAR); URINE COLOR YELLOW (YELLOW)
--- NOTE | 2018-07-08 06:07 | CP.PCM.CON ---
History of Present Illness - History of Present Illness History of Present Illness: Surgery: Dr. Chang CC: B/L LE pain HPI: 78F w. 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 Pt states that the pain is worse in the R leg. She says that the pain is intermittent. It is described as sharp/burning. The pain is not exacerbated by ambulation. Pt is only able to ambulate limitedly 2/2 SOB from COPD for which she is on home oxygen. She does not report having the pain wake her in the middle of the night. She states that she does not notice any improvement in pain if she hangs legs off side of bed. She states that since may she has started to develops sores/ulcers on B/L LE which have progressively worsened. She denies F/C. PMH: See above PSH: R nephrectomy, adrian, pleur-x catheter, portacath Meds: MAR reviewed NKDA Social: +Tobacco, no ETOH/drugs Fhx: Non-contributory Review of Systems - Review of Systems All systems: reviewed and no additional remarkable complaints except (HPI) Past Patient History - Infectious Disease Hx of Infectious Diseases: None - Past Social History Smoking Status: Never Smoked - CARDIAC Hx Cardiac Disorders: Yes (CAD) - PULMONARY Hx Respiratory Disorders: Yes - NEUROLOGICAL Hx Neurological Disorder: No - HEENT Hx HEENT Problems: Yes Hx Cataracts: Yes - RENAL Hx Chronic Kidney Disease: No - ENDOCRINE/METABOLIC Hx Endocrine Disorders: No - HEMATOLOGICAL/ONCOLOGICAL Hx Cancer: Yes (Ovarian CA) - INTEGUMENTARY Hx Dermatological Problems: No - MUSCULOSKELETAL/RHEUMATOLOGICAL Hx Falls: Yes - GASTROINTESTINAL Hx Gastrointestinal Disorders: No - GENITOURINARY/GYNECOLOGICAL Hx Genitourinary Disorders: No - PSYCHIATRIC Hx Psychophysiologic Disorder: No Hx Substance Use: No - SURGICAL HISTORY Hx Cholecystectomy: Yes Hx Coronary Stent: Yes - ANESTHESIA Hx Anesthesia: Yes Hx Anesthesia Reactions: No Hx Malignant Hyperthermia: No Meds Allergies/Adverse Reactions: Allergies Allergy/AdvReac Type Severity Reaction Status Date / Time No Known Allergies Allergy Verified 05/20/18 12:03 - Medications Medications: Current Medications Albuterol/Ipratropium (Duoneb 3 Mg/0.5 Mg (3 Ml) Ud) 3 ml IH [id number] [facility] Last Admin: 07/08/18 01:04 Dose: Not Given Alprazolam (Xanax) 0.25 mg PO ONCE ONE; Protocol Stop: 07/08/18 06:01 Cholecalciferol (Vitamin D) 1,000 intlu PO DAILY [facility] Diltiazem HCl (Cardizem) 30 mg PO QID [facility] Last Admin: 07/07/18 22:13 Dose: 30 mg Furosemide (Lasix) 20 mg IVP Q12 [facility] Last Admin: 07/07/18 22:13 Dose: 20 mg Heparin Sodium/Sodium Chloride (Heparin 66371 Units/250ml 1/2 Normal Saline) 25,000 units in 250 mls @ 9 mls/hr IV .Q24H PRN; Protocol PRN Reason: ADJUST RATE PER PROTOCOL Last Titration: 07/08/18 04:53 Dose: 8 mls/hr Linezolid (Zyvox 600mg/300ml D5w) 600 mg in 300 mls @ 200 mls/hr IVPB Q12 [facility]; Protocol Stop: 07/14/18 22:01 Last Admin: 07/07/18 22:16 Dose: 200 mls/hr Montelukast Sodium (Singulair) 10 mg PO DAILY [facility] Mupirocin (Bactroban Ointment) 1 gm TOP BID [facility] Last Admin: 07/07/18 20:19 Dose: 1 applic Prednisone (Prednisone Tab) 10 mg PO DAILY [facility] Pyridoxine HCl (Vitamin B6 50 Mg Tab) 100 mg PO DAILY [facility] Physical Exam - Constitutional Appears: Non-toxic, No Acute Distress - Head Exam Head Exam: ATRAUMATIC, NORMOCEPHALIC - Eye Exam Eye Exam: EOMI - ENT Exam ENT Exam: Mucous Membranes Moist - Neck Exam Neck exam: Positive for: Full Rom - Respiratory Exam Respiratory Exam: Prolonged Expiratory Phase. absent: Accessory Muscle Use, Respiratory Distress - Cardiovascular Exam Cardiovascular Exam: REGULAR RHYTHM - GI/Abdominal Exam GI & Abdominal Exam: Soft. absent: Tenderness - Extremities Exam Additional comments: LLL: Palpable femoral pulses, no pulses palpable distally, LLE is edematous, warm to touch, multiple venous stasis ulcers weeping serous fluid, calf tender to palpation, sensation blunted but intact, motor fxn intact RLE: Palpable femoral pulse, no pulses palpable distally, foot is cyanotic and cool to touch, sensation is blunted more so than L, tender to palpation, motor fxn intact, multiple venous stasis ulcers present, weaping serous fluid - Neurological Exam Neurological exam: Alert, Oriented x3 Results - Vital Signs Recent Vital Signs: Last Vital Signs Temp 97.6 F 07/07/18 23:30 Pulse 60 07/07/18 23:30 Resp 22 07/07/18 23:30 BP 101/70 07/07/18 23:30 Pulse Ox 97 07/07/18 23:30 - Labs Result Diagrams: 07/07/18 12:50 07/07/18 12:50 Labs: Laboratory Results - last 24 hr 07/07/18 07/07/18 07/07/18 12:50 12:50 12:50 WBC 16.4 H D RBC 3.17 L Hgb 10.6 L Hct 32.8 L MCV 103.5 MCH 33.4 MCHC 32.3 RDW 15.9 H Plt Count 198 MPV 10.3 Gran % 95.1 H Lymph % (Auto) 3.1 L Fisher % (Auto) 1.6 Eos % (Auto) 0.1 L Baso % (Auto) 0.1 Gran # 15.59 H Lymph # (Auto) 0.5 L Fisher # (Auto) 0.3 Eos # (Auto) 0.0 Baso # (Auto) 0.01 Neutrophils % (Manual) 93 H Lymphocytes % (Manual) 3 L Monocytes % (Manual) 4 PT 18.8 H INR 1.66 APTT 30.8 pCO2 pO2 HCO3 ABG pH ABG Total CO2 ABG O2 Saturation ABG Base Excess ABG Potassium VBG pH VBG pCO2 VBG HCO3 VBG Total CO2 VBG O2 Sat (Calc) VBG Base Excess VBG Potassium Glucose Lactate FiO2 Crit Value Called To Crit Value Called By Blood Gas Notified Time Sodium 134 Potassium 3.4 L Chloride 89 L Carbon Dioxide 36 H Anion Gap 12 BUN 59 H Creatinine 1.0 Est GFR ( Amer) > 60 Est GFR (Non-Af Amer) 53 POC Glucose (mg/dL) Random Glucose 215 H Calcium 9.1 Total Bilirubin 0.7 AST 37 H ALT 41 Alkaline Phosphatase 99 Lactate Dehydrogenase Total Creatine Kinase Troponin I Total Protein 5.8 Albumin 3.2 Globulin 2.7 Albumin/Globulin Ratio 1.2 Procalcitonin Arterial Blood Potassium Venous Blood Potassium Urine Color Urine Appearance Urine pH Ur Specific [place] Urine Protein Urine Glucose (UA) Urine Ketones Urine Blood Urine Nitrate Urine Bilirubin Urine Urobilinogen Ur Leukocyte Esterase 07/07/18 07/07/18 07/07/18 13:00 13:10 15:00 WBC RBC Hgb Hct MCV MCH MCHC RDW Plt Count MPV Gran % Lymph % (Auto) Fisher % (Auto) Eos % (Auto) Baso % (Auto) Gran # Lymph # (Auto) Fisher # (Auto) Eos # (Auto) Baso # (Auto) Neutrophils % (Manual) Lymphocytes % (Manual) Monocytes % (Manual) PT INR APTT pCO2 42 pO2 103.0 H HCO3 35.1 H ABG pH 7.53 H ABG Total CO2 36.4 H ABG O2 Saturation 99.4 H ABG Base Excess 11.2 H ABG Potassium 3.0 L VBG pH VBG pCO2 VBG HCO3 VBG Total CO2 VBG O2 Sat (Calc) VBG Base Excess VBG Potassium Glucose 161 H Lactate 2.0 FiO2 32.0 Crit Value Called To Crit Value Called By Blood Gas Notified Time Sodium 135.0 Potassium Chloride 98.0 Carbon Dioxide Anion Gap BUN Creatinine Est GFR ( Amer) Est GFR (Non-Af Amer) POC Glucose (mg/dL) Random Glucose Calcium Total Bilirubin AST ALT Alkaline Phosphatase Lactate Dehydrogenase Total Creatine Kinase Troponin I 0.03 D Total Protein Albumin Globulin Albumin/Globulin Ratio Procalcitonin 0.64 H Arterial Blood Potassium 3.0 L Venous Blood Potassium Urine Color Urine Appearance Urine pH Ur Specific [place] Urine Protein Urine Glucose (UA) Urine Ketones Urine Blood Urine Nitrate Urine Bilirubin Urine Urobilinogen Ur Leukocyte Esterase 07/07/18 07/07/18 07/07/18 20:31 20:36 21:11 WBC RBC Hgb Hct MCV MCH MCHC RDW Plt Count MPV Gran % Lymph % (Auto) Fisher % (Auto) Eos % (Auto) Baso % (Auto) Gran # Lymph # (Auto) Fisher # (Auto) Eos # (Auto) Baso # (Auto) Neutrophils % (Manual) Lymphocytes % (Manual) Monocytes % (Manual) PT INR APTT pCO2 pO2 88 H HCO3 ABG pH ABG Total CO2 ABG O2 Saturation ABG Base Excess ABG Potassium VBG pH 7.42 VBG pCO2 61.0 H VBG HCO3 39.6 H VBG Total CO2 41.5 H VBG O2 Sat (Calc) 98.4 H VBG Base Excess 12.4 H VBG Potassium 3.8 Glucose 154 H Lactate 2.3 H FiO2 21.0 Crit Value Called To Anusha thapa Crit Value Called By [facility] Blood Gas Notified Time 2041 Sodium 134.0 Potassium Chloride 96.0 L Carbon Dioxide Anion Gap BUN Creatinine Est GFR ( Amer) Est GFR (Non-Af Amer) POC Glucose (mg/dL) 138 H Random Glucose Calcium Total Bilirubin AST ALT Alkaline Phosphatase Lactate Dehydrogenase 626 Total Creatine Kinase < 20 L Troponin I 0.03 Total Protein Albumin Globulin Albumin/Globulin Ratio Procalcitonin Arterial Blood Potassium Venous Blood Potassium 3.8 Urine Color Urine Appearance Urine pH Ur Specific [place] Urine Protein Urine Glucose (UA) Urine Ketones Urine Blood Urine Nitrate Urine Bilirubin Urine Urobilinogen Ur Leukocyte Esterase 07/07/18 07/08/18 07/08/18 23:50 03:50 05:37 WBC RBC Hgb Hct MCV MCH MCHC RDW Plt Count MPV Gran % Lymph % (Auto) Fisher % (Auto) Eos % (Auto) Baso % (Auto) Gran # Lymph # (Auto) Fisher # (Auto) Eos # (Auto) Baso # (Auto) Neutrophils % (Manual) Lymphocytes % (Manual) Monocytes % (Manual) PT INR APTT 92.8 H pCO2 pO2 47 HCO3 ABG pH ABG Total CO2 ABG O2 Saturation ABG Base Excess ABG Potassium VBG pH 7.51 H VBG pCO2 44.0 VBG HCO3 35.1 H VBG Total CO2 36.5 H VBG O2 Sat (Calc) 89.3 H VBG Base Excess 10.8 H VBG Potassium 3.7 Glucose 182 H Lactate 2.1 FiO2 21.0 Crit Value Called To Crit Value Called By Blood Gas Notified Time Sodium 133.0 Potassium Chloride 95.0 L Carbon Dioxide Anion Gap BUN Creatinine Est GFR ( Amer) Est GFR (Non-Af Amer) POC Glucose (mg/dL) Random Glucose Calcium Total Bilirubin AST ALT Alkaline Phosphatase Lactate Dehydrogenase Total Creatine Kinase Troponin I Total Protein Albumin Globulin Albumin/Globulin Ratio Procalcitonin Arterial Blood Potassium Venous Blood Potassium 3.7 Urine Color Yellow Urine Appearance Clear Urine pH 6.5 Ur Specific [place] 1.010 Urine Protein Negative Urine Glucose (UA) Negative Urine Ketones Negative Urine Blood Negative Urine Nitrate Negative Urine Bilirubin Negative Urine Urobilinogen 0.2 Ur Leukocyte Esterase Negative - Imaging and Cardiology Venous US Status: Image reviewed by me, Report reviewed by me Assessment & Plan - Assessment and Plan (Free Text) Assessment: 78F w. pmh stage IV ovarian CA, RCC s/p R nephrectomy, SCLC, CHF, COPD, A-fib, presents w. B/L LE PVD Plan: -venous duplex reviewed, no DVT -FREDY's reviewed, abnormal results, R worse than L -will discuss w. IR formal angio w. possible intervention vs. CTA -keep legs elevated -d/w attending Marie PGY4
[2018-07-08 06:52] LABS: HEMOGLOBIN 8.8 g/dL (12.0-16.0); MEAN CELL VOLUME 102.2 fl (80.0-105.0); MEAN CORPUSCULAR HEMOGLOBIN 32.6 pg (25.0-35.0); MEAN CORPUSCULAR HGB CONC 31.9 g/dl (31.0-37.0); RBC 2.7 10^6/uL (3.5-6.1); WHITE BLOOD COUNT 15.4 10^3/uL (4.5-11.0)
[2018-07-08 07:08] LABS: TROPONIN I 0.02 ng/mL
--- NOTE | 2018-07-08 08:04 | PCM.FALL ---
Post Fall Progress Note - Post Fall Fall Date: 07/08/18 Fall Time: 07:35 - Post Fall Exam Vital Sign: Temp Pulse Resp BP Pulse Ox 97.6 F 105 H 22 101/70 97 07/07/18 23:30 07/08/18 06:00 07/07/18 23:30 07/07/18 23:30 07/07/18 23:30 Impression/Plan: Faby Barnes DO, PGY-2: House doctor response to [facility] bed [id number] 78 year old female admitted for bilateral leg pain who suffered from a fall observed by nursing staff. The patient is on heparin drip at this time. The patient reports she was sleep walking.The nurses heard the bed alarm go off and heard screams coming from the patient room. The patient was found to be getting out of bed. The nurse and/or patient care provider (PCP) immediately came to assist the patient back into bed at which time the patient slowly slid back with her buttocks hitting the floor. Important to note, that the PCP was holding the patient during this gradual fall, which attenuated the intensity of the fall. The patient did not hit her head. She had no bruises or new lacerations from the fall and did not complain of any pain. She did not have any point tenderness to palpation of the spine. She did already have a decubitus ulcer present that was covered with optiform. When she was placed back into a pillow was placed under the patient's decubitus ulcer. The primary attending, Dr. Spivey's cell phone was called but it went straight to voice mail; however, the resident managing Dr. Lind/Aman service was physically spoken to in regards to the fall. The patient was subsequently placed on high risk fall precautions. Based on my clinical assessment, no imaging is warranted at this time.
[2018-07-08] MEDS ORDERED: Digoxin 500 mcg/2ml (0.5 mg/2ml) Inj IVP ONE (09:36)
[2018-07-08] MEDS: Linezolid 600 mg in D5W 300 ml 600 MG/300 ML BAG IVPB SCH ×2 (09:57→21:30)
[2018-07-08] MEDS: Mupirocin 2% Ointment 15 GM TUBE TOP SCH ×2 (09:59→18:43)
[2018-07-08] MEDS ORDERED: Cholecalciferol 1,000 INTLU TAB PO SCH (10:00)
--- NOTE | 2018-07-08 10:07 | CP.PCM.CON ---
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 Patient said she has had these symptoms for several weeks. She admits to having open, draining wounds. She states she took regular medication for it, but does not recall the specific medications. Of note, patient was recently admitted for probable HCAP and discharged one week ago. Denies chest pain, shortness of breath, nausea, vomiting, diarrhea, fever chills, dysuria, cough. Medical Hx: As above Surgical Hx: Right nephrectomy, cholecyctectomy, pleurX catheter, portacath Meds: As per MAR, reviewed Allergies: NKDA Social: Former tobacco use, no alcohol or illicit drug use Family Hx: Denies Review of Systems - Review of Systems Review of Systems: 12 point ROS as per HPI, otherwise negative Past Patient History - Infectious Disease Hx of Infectious Diseases: None - Past Social History Smoking Status: Never Smoked - CARDIAC Hx Cardiac Disorders: Yes (CAD) - PULMONARY Hx Respiratory Disorders: Yes - NEUROLOGICAL Hx Neurological Disorder: No - HEENT Hx HEENT Problems: Yes Hx Cataracts: Yes - RENAL Hx Chronic Kidney Disease: No - ENDOCRINE/METABOLIC Hx Endocrine Disorders: No - HEMATOLOGICAL/ONCOLOGICAL Hx Cancer: Yes (Ovarian CA) - INTEGUMENTARY Hx Dermatological Problems: No - MUSCULOSKELETAL/RHEUMATOLOGICAL Hx Falls: Yes - GASTROINTESTINAL Hx Gastrointestinal Disorders: No - GENITOURINARY/GYNECOLOGICAL Hx Genitourinary Disorders: No - PSYCHIATRIC Hx Psychophysiologic Disorder: No Hx Substance Use: No - SURGICAL HISTORY Hx Cholecystectomy: Yes Hx Coronary Stent: Yes - ANESTHESIA Hx Anesthesia: Yes Hx Anesthesia Reactions: No Hx Malignant Hyperthermia: No Meds Allergies/Adverse Reactions: Allergies Allergy/AdvReac Type Severity Reaction Status Date / Time No Known Allergies Allergy Verified 05/20/18 12:03 - Medications Medications: Current Medications Albuterol/Ipratropium (Duoneb 3 Mg/0.5 Mg (3 Ml) Ud) 3 ml IH [id number] [facility] Last Admin: 07/08/18 08:10 Dose: Not Given Cholecalciferol (Vitamin D) 1,000 intlu PO DAILY [facility] Diltiazem HCl (Cardizem) 30 mg PO QID [facility] Last Admin: 07/07/18 22:13 Dose: 30 mg Furosemide (Lasix) 20 mg IVP Q12 [facility] Last Admin: 07/07/18 22:13 Dose: 20 mg Heparin Sodium/Sodium Chloride (Heparin 32539 Units/250ml 1/2 Normal Saline) 25,000 units in 250 mls @ 9 mls/hr IV .Q24H PRN; Protocol PRN Reason: ADJUST RATE PER PROTOCOL Last Titration: 07/08/18 04:53 Dose: 8 mls/hr Linezolid (Zyvox 600mg/300ml D5w) 600 mg in 300 mls @ 200 mls/hr IVPB Q12 [facility]; Protocol Stop: 07/14/18 22:01 Last Admin: 07/07/18 22:16 Dose: 200 mls/hr Montelukast Sodium (Singulair) 10 mg PO DAILY [facility] Mupirocin (Bactroban Ointment) 1 gm TOP BID [facility] Last Admin: 07/07/18 20:19 Dose: 1 applic Prednisone (Prednisone Tab) 10 mg PO DAILY [facility] Pyridoxine HCl (Vitamin B6 50 Mg Tab) 100 mg PO DAILY [facility] Physical Exam - Constitutional Appears: Non-toxic, No Acute Distress - Head Exam Head Exam: ATRAUMATIC, NORMAL INSPECTION, NORMOCEPHALIC - ENT Exam ENT Exam: Mucous Membranes Moist, Normal Exam - Respiratory Exam Respiratory Exam: Decreased Breath Sounds, NORMAL BREATHING PATTERN. absent: Rales, Rhonchi, Wheezes - Cardiovascular Exam Cardiovascular Exam: RRR, +S1, +S2 - GI/Abdominal Exam GI & Abdominal Exam: Normal Bowel Sounds, Soft. absent: Tenderness - Extremities Exam Extremities exam: Negative for: pedal edema Additional comments: Banadaged b/l. Drainage noted b/l. No edema - Neurological Exam Neurological exam: Alert, Oriented x3 - Psychiatric Exam Psychiatric exam: Agitated - Skin Skin Exam: Intact, Normal Color, Warm Results - Vital Signs Recent Vital Signs: Last Vital Signs Temp 97.7 F 07/08/18 08:04 Pulse 88 07/08/18 08:04 Resp 22 07/08/18 08:04 BP 99/59 L 07/08/18 08:04 Pulse Ox 97 07/08/18 08:04 - Labs Result Diagrams: 07/08/18 06:00 07/07/18 12:50 Labs: Laboratory Results - last 24 hr 07/07/18 07/07/18 07/07/18 12:50 12:50 12:50 WBC 16.4 H D RBC 3.17 L Hgb 10.6 L Hct 32.8 L MCV 103.5 MCH 33.4 MCHC 32.3 RDW 15.9 H Plt Count 198 MPV 10.3 Gran % 95.1 H Lymph % (Auto) 3.1 L [place] % (Auto) 1.6 Eos % (Auto) 0.1 L Baso % (Auto) 0.1 Gran # 15.59 H Lymph # (Auto) 0.5 L [place] # (Auto) 0.3 Eos # (Auto) 0.0 Baso # (Auto) 0.01 Neutrophils % (Manual) 93 H Lymphocytes % (Manual) 3 L Monocytes % (Manual) 4 PT 18.8 H INR 1.66 APTT 30.8 pCO2 pO2 HCO3 ABG pH ABG Total CO2 ABG O2 Saturation ABG Base Excess ABG Potassium VBG pH VBG pCO2 VBG HCO3 VBG Total CO2 VBG O2 Sat (Calc) VBG Base Excess VBG Potassium Glucose Lactate FiO2 Crit Value Called To Crit Value Called By Blood Gas Notified Time Sodium 134 Potassium 3.4 L Chloride 89 L Carbon Dioxide 36 H Anion Gap 12 BUN 59 H Creatinine 1.0 Est GFR ( Amer) > 60 Est GFR (Non-Af Amer) 53 POC Glucose (mg/dL) Random Glucose 215 H Calcium 9.1 Total Bilirubin 0.7 AST 37 H ALT 41 Alkaline Phosphatase 99 Lactate Dehydrogenase Total Creatine Kinase Troponin I Total Protein 5.8 Albumin 3.2 Globulin 2.7 Albumin/Globulin Ratio 1.2 Procalcitonin Arterial Blood Potassium Venous Blood Potassium Urine Color Urine Appearance Urine pH Ur Specific [place] Urine Protein Urine Glucose (UA) Urine Ketones Urine Blood Urine Nitrate Urine Bilirubin Urine Urobilinogen Ur Leukocyte Esterase 07/07/18 07/07/18 07/07/18 13:00 13:10 15:00 WBC RBC Hgb Hct MCV MCH MCHC RDW Plt Count MPV Gran % Lymph % (Auto) [place] % (Auto) Eos % (Auto) Baso % (Auto) Gran # Lymph # (Auto) [place] # (Auto) Eos # (Auto) Baso # (Auto) Neutrophils % (Manual) Lymphocytes % (Manual) Monocytes % (Manual) PT INR APTT pCO2 42 pO2 103.0 H HCO3 35.1 H ABG pH 7.53 H ABG Total CO2 36.4 H ABG O2 Saturation 99.4 H ABG Base Excess 11.2 H ABG Potassium 3.0 L VBG pH VBG pCO2 VBG HCO3 VBG Total CO2 VBG O2 Sat (Calc) VBG Base Excess VBG Potassium Glucose 161 H Lactate 2.0 FiO2 32.0 Crit Value Called To Crit Value Called By Blood Gas Notified Time Sodium 135.0 Potassium Chloride 98.0 Carbon Dioxide Anion Gap BUN Creatinine Est GFR ( Amer) Est GFR (Non-Af Amer) POC Glucose (mg/dL) Random Glucose Calcium Total Bilirubin AST ALT Alkaline Phosphatase Lactate Dehydrogenase Total Creatine Kinase Troponin I 0.03 D Total Protein Albumin Globulin Albumin/Globulin Ratio Procalcitonin 0.64 H Arterial Blood Potassium 3.0 L Venous Blood Potassium Urine Color Urine Appearance Urine pH Ur Specific [place] Urine Protein Urine Glucose (UA) Urine Ketones Urine Blood Urine Nitrate Urine Bilirubin Urine Urobilinogen Ur Leukocyte Esterase 07/07/18 07/07/18 07/07/18 20:31 20:36 21:11 WBC RBC Hgb Hct MCV MCH MCHC RDW Plt Count MPV Gran % Lymph % (Auto) [place] % (Auto) Eos % (Auto) Baso % (Auto) Gran # Lymph # (Auto) [place] # (Auto) Eos # (Auto) Baso # (Auto) Neutrophils % (Manual) Lymphocytes % (Manual) Monocytes % (Manual) PT INR APTT pCO2 pO2 88 H HCO3 ABG pH ABG Total CO2 ABG O2 Saturation ABG Base Excess ABG Potassium VBG pH 7.42 VBG pCO2 61.0 H VBG HCO3 39.6 H VBG Total CO2 41.5 H VBG O2 Sat (Calc) 98.4 H VBG Base Excess 12.4 H VBG Potassium 3.8 Glucose 154 H Lactate 2.3 H FiO2 21.0 Crit Value Called To Anusha thapa Crit Value Called By Atc Blood Gas Notified Time 2041 Sodium 134.0 Potassium Chloride 96.0 L Carbon Dioxide Anion Gap BUN Creatinine Est GFR ( Amer) Est GFR (Non-Af Amer) POC Glucose (mg/dL) 138 H Random Glucose Calcium Total Bilirubin AST ALT Alkaline Phosphatase Lactate Dehydrogenase 626 Total Creatine Kinase < 20 L Troponin I 0.03 Total Protein Albumin Globulin Albumin/Globulin Ratio Procalcitonin Arterial Blood Potassium Venous Blood Potassium 3.8 Urine Color Urine Appearance Urine pH Ur Specific [place] Urine Protein Urine Glucose (UA) Urine Ketones Urine Blood Urine Nitrate Urine Bilirubin Urine Urobilinogen Ur Leukocyte Esterase 07/07/18 07/08/18 07/08/18 23:50 03:50 05:37 WBC RBC Hgb Hct MCV MCH MCHC RDW Plt Count MPV Gran % Lymph % (Auto) [place] % (Auto) Eos % (Auto) Baso % (Auto) Gran # Lymph # (Auto) [place] # (Auto) Eos # (Auto) Baso # (Auto) Neutrophils % (Manual) Lymphocytes % (Manual) Monocytes % (Manual) PT INR APTT 92.8 H pCO2 pO2 47 HCO3 ABG pH ABG Total CO2 ABG O2 Saturation ABG Base Excess ABG Potassium VBG pH 7.51 H VBG pCO2 44.0 VBG HCO3 35.1 H VBG Total CO2 36.5 H VBG O2 Sat (Calc) 89.3 H VBG Base Excess 10.8 H VBG Potassium 3.7 Glucose 182 H Lactate 2.1 FiO2 21.0 Crit Value Called To Crit Value Called By Blood Gas Notified Time Sodium 133.0 Potassium Chloride 95.0 L Carbon Dioxide Anion Gap BUN Creatinine Est GFR ( Amer) Est GFR (Non-Af Amer) POC Glucose (mg/dL) Random Glucose Calcium Total Bilirubin AST ALT Alkaline Phosphatase Lactate Dehydrogenase Total Creatine Kinase Troponin I Total Protein Albumin Globulin Albumin/Globulin Ratio Procalcitonin Arterial Blood Potassium Venous Blood Potassium 3.7 Urine Color Yellow Urine Appearance Clear Urine pH 6.5 Ur Specific [place] 1.010 Urine Protein Negative Urine Glucose (UA) Negative Urine Ketones Negative Urine Blood Negative Urine Nitrate Negative Urine Bilirubin Negative Urine Urobilinogen 0.2 Ur Leukocyte Esterase Negative 07/08/18 07/08/18 06:00 06:00 WBC 15.4 H RBC 2.70 L Hgb 8.8 L Hct 27.6 L MCV 102.2 MCH 32.6 MCHC 31.9 RDW 16.0 H Plt Count 196 MPV 10.0 Gran % Lymph % (Auto) [place] % (Auto) Eos % (Auto) Baso % (Auto) Gran # Lymph # (Auto) [place] # (Auto) Eos # (Auto) Baso # (Auto) Neutrophils % (Manual) Lymphocytes % (Manual) Monocytes % (Manual) PT INR APTT pCO2 pO2 HCO3 ABG pH ABG Total CO2 ABG O2 Saturation ABG Base Excess ABG Potassium VBG pH VBG pCO2 VBG HCO3 VBG Total CO2 VBG O2 Sat (Calc) VBG Base Excess VBG Potassium Glucose Lactate FiO2 Crit Value Called To Crit Value Called By Blood Gas Notified Time Sodium Potassium Chloride Carbon Dioxide Anion Gap BUN Creatinine Est GFR ( Amer) Est GFR (Non-Af Amer) POC Glucose (mg/dL) Random Glucose Calcium Total Bilirubin AST ALT Alkaline Phosphatase Lactate Dehydrogenase 641 Total Creatine Kinase < 20 L Troponin I 0.02 D Total Protein Albumin Globulin Albumin/Globulin Ratio Procalcitonin Arterial Blood Potassium Venous Blood Potassium Urine Color Urine Appearance Urine pH Ur Specific [place] Urine Protein Urine Glucose (UA) Urine Ketones Urine Blood Urine Nitrate Urine Bilirubin Urine Urobilinogen Ur Leukocyte Esterase Assessment & Plan - Assessment and Plan (Free Text) Plan: B/l purulent lower extremity cellulitis Hx of sepsis due to micrococcus bacteremia and pneumonia Hx of 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 stage 3B renal cell carcinoma CAD s/p stent placement small cell lung cancer rheumatoid arthritis chronic CHF chronic right sided pleural effusion S/P pleurX placement S/P nephrectomy Plan Patient started on Zyvox for lower extremity cellulitis Blood cultures pending FREDY's show right sided disease worse than left in lower extremities No evidence of DVT on US Procal elevated Continue to monitor closely [place], PGY-3 <William Sandoval S - Last Filed: 07/08/18 15:00> Meds - Medications Medications: Current Medications Acetylcysteine (Acetylcysteine 20%) 4 ml IH BIDRESP [place] Budesonide (Pulmicort Respules) 0.5 mg IH [id number] [facility] Cholecalciferol (Vitamin D) 1,000 intlu PO DAILY [facility] Last Admin: 07/08/18 09:56 Dose: 1,000 intlu Diltiazem HCl (Cardizem) 30 mg PO QID [facility] Last Admin: 07/08/18 13:17 Dose: 30 mg Docusate Sodium (Colace) 100 mg PO TID [facility] Last Admin: 07/08/18 13:17 Dose: 100 mg Famotidine (Pepcid) 20 mg PO 2200 [place] Furosemide (Lasix) 20 mg IVP Q12 [facility] Last Admin: 07/08/18 09:57 Dose: 20 mg Heparin Sodium/Sodium Chloride (Heparin 44858 Units/250ml 1/2 Normal Saline) 25,000 units in 250 mls @ 9 mls/hr IV .Q24H PRN; Protocol PRN Reason: ADJUST RATE PER PROTOCOL Last Admin: 07/08/18 11:42 Dose: 6 mls/hr Linezolid (Zyvox 600mg/300ml D5w) 600 mg in 300 mls @ 200 mls/hr IVPB Q12 [facility]; Protocol Stop: 07/14/18 22:01 Last Admin: 07/08/18 09:57 Dose: 200 mls/hr Sodium Chloride (Sodium Chloride 0.9%) 1,000 mls @ 60 mls/hr IV .[id number] [facility] Stop: 07/09/18 20:19 Levalbuterol HCl (Xopenex) 0.63 mg IH [id number] [facility] Last Admin: 07/08/18 13:34 Dose: 0.63 mg Metoprolol Tartrate (Lopressor) 50 mg PO BRKDIN [facility] Montelukast Sodium (Singulair) 10 mg PO DAILY [facility] Last Admin: 07/08/18 09:57 Dose: 10 mg Mupirocin (Bactroban Ointment) 1 gm TOP BID [facility] Last Admin: 07/08/18 09:59 Dose: 1 applic Polyethylene Glycol (Miralax) 17 gm PO DAILY [facility] Last Admin: 07/08/18 13:17 Dose: 17 gm Prednisone (Prednisone Tab) 10 mg PO DAILY [facility] Last Admin: 07/08/18 09:56 Dose: 10 mg Pyridoxine HCl (Vitamin B6 50 Mg Tab) 100 mg PO DAILY [facility] Last Admin: 07/08/18 10:07 Dose: 100 mg Results - Vital Signs Recent Vital Signs: Last Vital Signs Temp 97.7 F 07/08/18 08:04 Pulse 91 H 07/08/18 13:17 Resp 22 07/08/18 08:04 BP 102/59 L 07/08/18 13:17 Pulse Ox 97 07/08/18 08:04 - Labs Result Diagrams: 07/08/18 06:00 07/07/18 12:50 Labs: Laboratory Results - last 24 hr 07/07/18 07/07/18 07/07/18 13:00 15:00 20:31 WBC RBC Hgb Hct MCV MCH MCHC RDW Plt Count MPV APTT pCO2 42 pO2 103.0 H HCO3 35.1 H ABG pH 7.53 H ABG Total CO2 36.4 H ABG O2 Saturation 99.4 H ABG Base Excess 11.2 H ABG Potassium 3.0 L VBG pH VBG pCO2 VBG HCO3 VBG Total CO2 VBG O2 Sat (Calc) VBG Base Excess VBG Potassium Sodium 135.0 Chloride 98.0 Glucose 161 H Lactate 2.0 FiO2 32.0 Crit Value Called To Crit Value Called By Blood Gas Notified Time POC Glucose (mg/dL) Lactate Dehydrogenase 626 Total Creatine Kinase < 20 L Troponin I 0.03 Procalcitonin 0.64 H Arterial Blood Potassium 3.0 L Venous Blood Potassium Urine Color Urine Appearance Urine pH Ur Specific [place] Urine Protein Urine Glucose (UA) Urine Ketones Urine Blood Urine Nitrate Urine Bilirubin Urine Urobilinogen Ur Leukocyte Esterase 07/07/18 07/07/18 07/07/18 20:36 21:11 23:50 WBC RBC Hgb Hct MCV MCH MCHC RDW Plt Count MPV APTT pCO2 pO2 88 H 47 HCO3 ABG pH ABG Total CO2 ABG O2 Saturation ABG Base Excess ABG Potassium VBG pH 7.42 7.51 H VBG pCO2 61.0 H 44.0 VBG HCO3 39.6 H 35.1 H VBG Total CO2 41.5 H 36.5 H VBG O2 Sat (Calc) 98.4 H 89.3 H VBG Base Excess 12.4 H 10.8 H VBG Potassium 3.8 3.7 Sodium 134.0 133.0 Chloride 96.0 L 95.0 L Glucose 154 H 182 H Lactate 2.3 H 2.1 FiO2 21.0 21.0 Crit Value Called To Anusha thapa Crit Value Called By [facility] Blood Gas Notified Time 2041 POC Glucose (mg/dL) 138 H Lactate Dehydrogenase Total Creatine Kinase Troponin I Procalcitonin Arterial Blood Potassium Venous Blood Potassium 3.8 3.7 Urine Color Urine Appearance Urine pH Ur Specific [place] Urine Protein Urine Glucose (UA) Urine Ketones Urine Blood Urine Nitrate Urine Bilirubin Urine Urobilinogen Ur Leukocyte Esterase 07/08/18 07/08/18 07/08/18 03:50 05:37 06:00 WBC RBC Hgb Hct MCV MCH MCHC RDW Plt Count MPV APTT 92.8 H pCO2 pO2 HCO3 ABG pH ABG Total CO2 ABG O2 Saturation ABG Base Excess ABG Potassium VBG pH VBG pCO2 VBG HCO3 VBG Total CO2 VBG O2 Sat (Calc) VBG Base Excess VBG Potassium Sodium Chloride Glucose Lactate FiO2 Crit Value Called To Crit Value Called By Blood Gas Notified Time POC Glucose (mg/dL) Lactate Dehydrogenase 641 Total Creatine Kinase < 20 L Troponin I 0.02 D Procalcitonin Arterial Blood Potassium Venous Blood Potassium Urine Color Yellow Urine Appearance Clear Urine pH 6.5 Ur Specific [place] 1.010 Urine Protein Negative Urine Glucose (UA) Negative Urine Ketones Negative Urine Blood Negative Urine Nitrate Negative Urine Bilirubin Negative Urine Urobilinogen 0.2 Ur Leukocyte Esterase Negative 07/08/18 07/08/18 06:00 11:00 WBC 15.4 H RBC 2.70 L Hgb 8.8 L Hct 27.6 L MCV 102.2 MCH 32.6 MCHC 31.9 RDW 16.0 H Plt Count 196 MPV 10.0 APTT 90.3 H pCO2 pO2 HCO3 ABG pH ABG Total CO2 ABG O2 Saturation ABG Base Excess ABG Potassium VBG pH VBG pCO2 VBG HCO3 VBG Total CO2 VBG O2 Sat (Calc) VBG Base Excess VBG Potassium Sodium Chloride Glucose Lactate FiO2 Crit Value Called To Crit Value Called By Blood Gas Notified Time POC Glucose (mg/dL) Lactate Dehydrogenase Total Creatine Kinase Troponin I Procalcitonin Arterial Blood Potassium Venous Blood Potassium Urine Color Urine Appearance Urine pH Ur Specific [place] Urine Protein Urine Glucose (UA) Urine Ketones Urine Blood Urine Nitrate Urine Bilirubin Urine Urobilinogen Ur Leukocyte Esterase Assessment & Plan - Assessment and Plan (Free Text) Plan: Infectious diseases Attending Physician Attestation Patient seen and examined, discussed with medical lab scientist. I have reviewed the patient's history of present illness, past medical, social, personal and family histories, pertinent physical exam findings, course so far in this hospital admission, pertinent laboratory and imaging results. I agree with the above findings, assessment and plan. In addition, started Zyvox for lower extremity cellulitis. Will monitor clinically and follow up cultures.
[2018-07-08 10:50] VITALS: PULSE 115
[2018-07-08] MEDS ORDERED: Sodium Chloride 0.9% 1,000 ML IV SCH ×2 (11:00→21:37)
[2018-07-08] MEDS: Heparin25000 units/250ml 1/2NS 25,000 UNITS/250 ML BAG IV PRN (11:42)
[2018-07-08] MEDS ORDERED: POLYETHYLENE GLYCOL 3350 17 GM/Dose PACKET PO SCH (12:15)
[2018-07-08] MEDS ORDERED: Levalbuterol 0.63 MG/3 ML Inhal Soln UD IH PRN (12:31)
[2018-07-08] MEDS ORDERED: Levalbuterol 0.63 MG/3 ML Inhal Soln UD IH SCH (14:00)
--- NOTE | 2018-07-08 14:05 | CON ---
DATE: 07/08/2018 PULMONARY CONSULTATION NOTE REFERRING PHYSICIAN: Luis Zafar MD REASON FOR CONSULTATION: Respiratory alkalosis, pulmonary infiltrates and history of lung cancer. HISTORY OF PRESENT ILLNESS: This is a 78-year-old female well known to me from previous admissions with past medical history of metastatic ovarian carcinoma, renal cell carcinoma, small cell lung cancer, coronary artery disease with coronary stents, peripheral artery disease, status post right leg stent in 2015, history of AFib, history of thoracic aortic aneurysm who presented to the emergency room due to progressively worsening lower extremity pain left greater than the right accompanied with swelling, ulceration and redness of both lower extremities. The patient also presented with right foot feeling colder than the left foot. The patient was seen in the home by visiting nurse and was advised to come to the emergency room due to above listed findings. Today, the patient reports that she is feeling well, does have some shortness of breath with exertion, patient had a fall this morning, with no injuries noted. PAST MEDICAL HISTORY: As per history of present illness. FAMILY HISTORY: No significant cardiopulmonary disease reported. SOCIAL HISTORY: Former smoker. No illicit drug use. No EtOH abuse. ALLERGIES: NONE KNOWN ALLERGIES. MEDICATIONS: DuoNeb 3 mL inhalation every 6 hours, vitamin D 1000 units daily, Cardizem 30 mg 4 times a day, Colace 100 mg 3 times a day, Pepcid 20 mg daily, Lasix 20 mg every 12 hours, Zyvox 600 mg every 12 hours, metoprolol tartrate 50 mg at breakfast, Singulair 10 mg daily, Bactroban topically twice a day to affected area, MiraLax 17 g daily, prednisone 10 mg daily, vitamin B6 100 mg daily, sodium chloride 0.9%, 1000 mL at 60 mL per hour. REVIEW OF SYSTEMS: No headache, rhinitis, chest pain, abdominal pain, nausea, vomiting, diarrhea reported. The patient does have ulceration to bilateral lower extremities. Reported edema to bilateral lower extremities. Does report shortness of breath with exertion, periodic cough. PHYSICAL EXAMINATION GENERAL: No acute distress. VITAL SIGNS: Blood pressure 99/59, pulse 88, temperature 97.7 and oxygen saturation 97%. HEENT: Moist mucous membranes. NECK: Supple. No JVD. LUNGS: Bilateral rhonchi, crackles. CARDIOVASCULAR: Irregular rhythm. ABDOMEN: Soft and nontender. No distention. No organomegaly. EXTREMITIES: Right foot is cold to touch and pale. Bilateral lower extremities wrapped in dressing. NEUROLOGIC: Awake, alert and verbal. Follows commands. LABORATORY DATA: Reviewed. WBC 15.4, RBC 2.7, hemoglobin 8.8, hematocrit 27.6 and platelets 196. APTT 90.3. Lactate dehydrogenase 641, total creatine kinase less than 20, troponin 0.02, procalcitonin 0.64, POC glucose 138. Sodium 134, potassium 3.4, chloride 89, carbon dioxide 36, anion gap 12, BUN 59, creatinine 1, GFR 53, random glucose 250, calcium 9.1, total bilirubin 0.7, AST 37, ALT 41, alkaline phosphatase 99, total protein 5.8, albumin 3.2, globulin 2.7, and albumin-globulin ratio 1.2. Urinalysis are normal. Chest x-ray, no change in right-sided upper and lower lobe infiltrate. Electrocardiogram shows atrial fibrillation with premature ventricular or abhorrently conductive complexes. Extremity ultrasound shows no evidence of deep venous thrombosis in both lower extremities. FREDY shows severely abnormal right FREDY at rest, bilateral distal SBA, popliteal and/or trifurcation disease, possible right iliac and/or common femoral artery disease. IMPRESSION AND PLAN: Bilateral lower extremity cellulitis, healthcare-acquired pneumonia, stage IV ovarian cancer with metastases to lungs, stage III renal cell carcinoma,coronary artery disease, status post stent placement, small-cell lung cancer, chronic congestive heart failure, chronic right-sided pleural effusion with PleurX catheter placement in the past, status post nephrectomy in the past, chronic lung disease. Continue inhaled bronchodilators, antibiotic therapy, continue leukotriene inhibitors, steroids, diuretics. We will place the patient on Pulmicort and Mucomyst nebulizers. The patient will need vascular/interventional radiology consult, gastric prophylaxis, deep venous thrombosis prophylaxis. Continue to follow up with Infectious Disease. The patient was seen and examined with Dr. Love. Discussed assessment and plan as described above. Thank you for this consult and we will follow with you. Casey Prudence, CROWN ATTACHER Concepcion Love MD [facility] # [id number] [place]
--- NOTE | 2018-07-08 14:30 | CP.PCM.PN ---
Subjective - Date & Time of Evaluation Date of Evaluation: 07/08/18 Time of Evaluation: 14:26 - Subjective Subjective: PGY-2 heme/onc progress note Patient had a code star called this morning when she fell off her bed - she landed on her buttocks - fall precautions are now in place. She complained of left foot pain and mechanical allodynia. She denied n/v, cp, sob, abd pain. Objective - Vital Signs/Intake and Output Vital Signs (last 24 hours): Temp Pulse Resp BP Pulse Ox 97.7 F 91 H 22 102/59 L 97 07/08/18 08:04 07/08/18 13:17 07/08/18 08:04 07/08/18 13:17 07/08/18 08:04 Intake and Output: 07/08/18 07/08/18 06:59 18:59 Intake Total 726.8 123.2 Output Total 650 Balance 76.8 123.2 - Medications Medications: Current Medications Acetylcysteine (Acetylcysteine 20%) 4 ml IH BIDRESP [facility] Budesonide (Pulmicort Respules) 0.5 mg IH [id number] [facility] Cholecalciferol (Vitamin D) 1,000 intlu PO DAILY [facility] Last Admin: 07/08/18 09:56 Dose: 1,000 intlu Diltiazem HCl (Cardizem) 30 mg PO QID [facility] Last Admin: 07/08/18 13:17 Dose: 30 mg Docusate Sodium (Colace) 100 mg PO TID [facility] Last Admin: 07/08/18 13:17 Dose: 100 mg Famotidine (Pepcid) 20 mg PO 2200 [facility] Furosemide (Lasix) 20 mg IVP Q12 [facility] Last Admin: 07/08/18 09:57 Dose: 20 mg Heparin Sodium/Sodium Chloride (Heparin 19699 Units/250ml 1/2 Normal Saline) 25,000 units in 250 mls @ 9 mls/hr IV .Q24H PRN; Protocol PRN Reason: ADJUST RATE PER PROTOCOL Last Admin: 07/08/18 11:42 Dose: 6 mls/hr Linezolid (Zyvox 600mg/300ml D5w) 600 mg in 300 mls @ 200 mls/hr IVPB Q12 [facility]; Protocol Stop: 07/14/18 22:01 Last Admin: 07/08/18 09:57 Dose: 200 mls/hr Sodium Chloride (Sodium Chloride 0.9%) 1,000 mls @ 60 mls/hr IV .[id number] [facility] Stop: 07/09/18 20:19 Levalbuterol HCl (Xopenex) 0.63 mg IH [id number] [facility] Last Admin: 07/08/18 13:34 Dose: 0.63 mg Metoprolol Tartrate (Lopressor) 50 mg PO BRKDIN [facility] Montelukast Sodium (Singulair) 10 mg PO DAILY [facility] Last Admin: 07/08/18 09:57 Dose: 10 mg Mupirocin (Bactroban Ointment) 1 gm TOP BID [facility] Last Admin: 07/08/18 09:59 Dose: 1 applic Polyethylene Glycol (Miralax) 17 gm PO DAILY [facility] Last Admin: 07/08/18 13:17 Dose: 17 gm Prednisone (Prednisone Tab) 10 mg PO DAILY [facility] Last Admin: 07/08/18 09:56 Dose: 10 mg Pyridoxine HCl (Vitamin B6 50 Mg Tab) 100 mg PO DAILY [facility] Last Admin: 07/08/18 10:07 Dose: 100 mg - Labs Labs: 07/08/18 06:00 07/07/18 12:50 PT 18.8 SECONDS (9.4-12.5) H 07/07/18 12:50 INR 1.66 07/07/18 12:50 APTT 90.3 Seconds (26.9-38.3) H 07/08/18 11:00 - Constitutional Appears: No Acute Distress, Chronically Ill - Head Exam Head Exam: ATRAUMATIC, NORMAL INSPECTION - Eye Exam Eye Exam: EOMI, Normal appearance, PERRL. absent: Scleral icterus - ENT Exam ENT Exam: Mucous Membranes Moist - Neck Exam Neck Exam: Full ROM - Respiratory Exam Respiratory Exam: Decreased Breath Sounds. absent: Respiratory Distress - Cardiovascular Exam Cardiovascular Exam: REGULAR RHYTHM, +S1, +S2 - GI/Abdominal Exam GI & Abdominal Exam: Soft, Normal Bowel Sounds. absent: Distended, Firm, Tenderness - Extremities Exam Additional comments: right foot cold to touch with ecchymosis in dorsum of foot; normal range of motion; tenderness over left lower extremity; erythema of left leg and foot; unable to palpate right pedal pulse - Neurological Exam Neurological Exam: Alert, Awake, Oriented x3 - Psychiatric Exam Psychiatric exam: Normal Affect, Normal Mood - Skin Additional comments: ecchymosis on arms b/l and LE b/l Assessment and Plan - Assessment and Plan (Free Text) Plan: Ms. 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 #hx of small cell lung cancer #hx of stage IV renal cell carcinoma s/p resection of kidney -active stage IV metastatic ovarian carcinoma, mullerian origin, mets to lung, currently just finished gemcitabine and Avastin -small cell lung cancer, s/p carboplatinum and etoposide, not clinically active -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, treated with interferon (27 years ago) #PVD of LE #Rule out Cellulitis #Hx of DVT -currently on heparin drip with major improvement in color (leg was cyanotic on admission), pain and temperature -FREDY's show right sided disease worse than left in lower extremities; -No evidence of DVT on US -surgery to order MRA LE and Abd -Procal mildly elevated 0.64; -Patient started on Zyvox 07/07/18 for possibility of lower extremity cellulitis -f/u blood and urine cx #COPD, recurrent pleural effusion with chronic R plurX #Pulmonary Mets -saturating well on NC 2L -continue acetylcysteine 20% ih bid, budesonide 0.5mg ih q12h, lasix 20mg ivp q12h, singulari 10mg po qd, prednisone 10mg po qd #CHF, Aortic aneurysm, HTN, PVD, A fib on eliquis -continue cardizem 30mg po qid, metoprolol tartrate 50mg po bid, lasix 20mg ivp q12h #Sacral Decubiti #Skin tear right antecubital -wound care, optiform, elevate limbs, maximino badages, heel protectors #PPx -pepcid 20mg po bid -on heparin drip consults: ID Dr Bradford, IR Dr Mario Yee, Pulmonary Dr Love, Cardio Dr Calles, Surgery Dr Aaron Seen and discussed with Dr Lind
[2018-07-08] MEDS ORDERED: Acetylcysteine 20% Inhal Soln (4ml) IH SCH (20:00)
[2018-07-08] MEDS ORDERED: Budesonide 0.5 mg/2 ml Inhal Susp UD IH SCH (20:00)
[2018-07-08 20:32] VITALS: TEMP 98.1; O2SAT 85
--- NOTE | 2018-07-08 21:38 | CP.PCM.CON ---
History of Present Illness - History of Present Illness History of Present Illness: Dmitriy Del Angel PGY2 - ICU Consult Note for Dr. 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 Patient was admitted for cellulitis of the lower extrem ities. Lab work was conducted, cultures were taken and patient was placed on IV antibiotics. During the night of 07/08/2018 patient was noted to have increased respiratory effort and limited responsiveness to nursing. A HAND NAILER was called and patient was evaluated and found to have hypotension, bradycardia, hypoxemia and increased respiratory effort. Patient was placed on BiPAP and transferred to ICU for further monitoring and evaluation. Patient was unable to provide ROS due to her respiratory status and diminished mentation. Prior to patient being transported to ICU patient's friends and family were contacted regarding code status as it was not apparent from reviewing patient chart. Initial conversations with her friend Laura for whom she has lived with for many years reported the patient had a living will stating the patient wished to be DNR and DNI. Primary team was notified that the patient had a sister Chantal Hartman([phone]) who was able to confirm the DNR/DNI from the living will. Mrs. Hartman was contacted over the phone and when asked about code status she informed myself that the patient wished to be DNR/DNI. With no Living Will attached to the chart or scanned into the EMR a POLST was filled out and family member Chantal was witnessed confriming DNR/DNI code status to two witnessing nurses. PMH: as mentioned above PSH: R nephrectomy, cholecystectomy, pleur-x catheter, portacath SOCHX: Tobacco: negative, ETOH: Negative, ID: Negative ALL: NKDA MEDS: MAR reviewed Review of Systems - Review of Systems Systems not reviewed;Unavailable: Acuity of Condition All systems: reviewed and no additional remarkable complaints except Past Patient History - Infectious Disease Hx of Infectious Diseases: None - Past Social History Smoking Status: Never Smoked - CARDIAC Hx Cardiac Disorders: Yes (CAD) - PULMONARY Hx Respiratory Disorders: Yes - NEUROLOGICAL Hx Neurological Disorder: No - HEENT Hx HEENT Problems: Yes Hx Cataracts: Yes - RENAL Hx Chronic Kidney Disease: No - ENDOCRINE/METABOLIC Hx Endocrine Disorders: No - HEMATOLOGICAL/ONCOLOGICAL Hx Cancer: Yes (Ovarian CA) - INTEGUMENTARY Hx Dermatological Problems: No - MUSCULOSKELETAL/RHEUMATOLOGICAL Hx Falls: Yes - GASTROINTESTINAL Hx Gastrointestinal Disorders: No - GENITOURINARY/GYNECOLOGICAL Hx Genitourinary Disorders: No - PSYCHIATRIC Hx Psychophysiologic Disorder: No Hx Substance Use: No - SURGICAL HISTORY Hx Cholecystectomy: Yes Hx Coronary Stent: Yes - ANESTHESIA Hx Anesthesia: Yes Hx Anesthesia Reactions: No Hx Malignant Hyperthermia: No Meds Allergies/Adverse Reactions: Allergies Allergy/AdvReac Type Severity Reaction Status Date / Time No Known Allergies Allergy Verified 05/20/18 12:03 - Medications Medications: Current Medications Acetylcysteine (Acetylcysteine 20%) 4 ml IH BIDRESP [facility] Budesonide (Pulmicort Respules) 0.5 mg IH [id number] [facility] Cholecalciferol (Vitamin D) 1,000 intlu PO DAILY [facility] Last Admin: 07/08/18 09:56 Dose: 1,000 intlu Diltiazem HCl (Cardizem) 30 mg PO QID [facility] Last Admin: 07/08/18 18:44 Dose: Not Given Docusate Sodium (Colace) 100 mg PO TID [facility] Last Admin: 07/08/18 18:42 Dose: 100 mg Famotidine (Pepcid) 20 mg PO 2200 [facility] Furosemide (Lasix) 20 mg IVP Q12 [facility] Last Admin: 07/08/18 09:57 Dose: 20 mg Heparin Sodium/Sodium Chloride (Heparin 17730 Units/250ml 1/2 Normal Saline) 25,000 units in 250 mls @ 9 mls/hr IV .Q24H PRN; Protocol PRN Reason: ADJUST RATE PER PROTOCOL Last Admin: 07/08/18 11:42 Dose: 6 mls/hr Linezolid (Zyvox 600mg/300ml D5w) 600 mg in 300 mls @ 200 mls/hr IVPB Q12 [facility]; Protocol Stop: 07/14/18 22:01 Last Admin: 07/08/18 09:57 Dose: 200 mls/hr Sodium Chloride (Sodium Chloride 0.9%) 1,000 mls @ 60 mls/hr IV .[id number] [facility] Stop: 07/09/18 20:19 Last Admin: 07/08/18 18:44 Dose: 60 mls/hr Levalbuterol HCl (Xopenex) 0.63 mg IH [id number] [facility] Last Admin: 07/08/18 13:34 Dose: 0.63 mg Metoprolol Tartrate (Lopressor) 50 mg PO BRKDIN [facility] Last Admin: 07/08/18 18:42 Dose: 50 mg Montelukast Sodium (Singulair) 10 mg PO DAILY [facility] Last Admin: 07/08/18 09:57 Dose: 10 mg Mupirocin (Bactroban Ointment) 1 gm TOP BID [facility] Last Admin: 07/08/18 18:43 Dose: 1 applic Ondansetron HCl (Zofran Inj) 4 mg IVP Q6H PRN PRN Reason: Nausea/Vomiting Polyethylene Glycol (Miralax) 17 gm PO DAILY [facility] Last Admin: 07/08/18 13:17 Dose: 17 gm Prednisone (Prednisone Tab) 10 mg PO DAILY [facility] Last Admin: 07/08/18 09:56 Dose: 10 mg Pyridoxine HCl (Vitamin B6 50 Mg Tab) 100 mg PO DAILY [facility] Last Admin: 07/08/18 10:07 Dose: 100 mg Zolpidem Tartrate (Ambien) 5 mg PO HS PRN; Protocol PRN Reason: Insomnia Physical Exam - Constitutional Appears: In Acute Distress, Chronically Ill - Head Exam Head Exam: ATRAUMATIC, NORMAL INSPECTION, NORMOCEPHALIC - Eye Exam Eye Exam: EOMI (patient noted to track across room and make eye contact with health professional healthcare representative ) - ENT Exam ENT Exam: Mucous Membranes Dry - Neck Exam Neck exam: Positive for: Full Rom - Respiratory Exam Respiratory Exam: Decreased Breath Sounds, Rales (right sided >left sided bases ), Rhonchi (right side), Respiratory Distress. absent: Chest Wall Tenderness, Wheezes - Cardiovascular Exam Cardiovascular Exam: Bradycardia, REGULAR RHYTHM, +S1, +S2. absent: JVD - GI/Abdominal Exam GI & Abdominal Exam: Normal Bowel Sounds, Soft. absent: Distended, Firm, Guar ding, Rigid, Tenderness - Extremities Exam Additional comments: No bilateral extremity edema appreciated Tenderness to palpation appreciated Left > right lower extremity bandaging covering lower extremities bilateral Upper extremities with good range of motion, sloughing skin on left anterior forearm appreciated, no pus or blood loss appreciated Patient noted to have cold hands bilaterally - Neurological Exam Additional comments: Neuro exam limited secondary to patient acute distress Patient somnolent and unable to focus for further evaluation motor and sensory grossly intact - Psychiatric Exam Psychiatric exam: Agitated - Skin Skin Exam: Dry Results - Vital Signs Recent Vital Signs: Last Vital Signs Temp 98.1 F 07/08/18 20:15 Pulse 84 07/08/18 20:15 Resp 20 07/08/18 20:15 BP 99/63 L 07/08/18 20:15 Pulse Ox 85 L 07/08/18 20:15 - Labs Result Diagrams: 07/08/18 23:07 07/08/18 23:07 Labs: Laboratory Results - last 24 hr 07/07/18 07/08/18 07/08/18 23:50 03:50 05:37 WBC RBC Hgb Hct MCV MCH MCHC RDW Plt Count MPV APTT 92.8 H pO2 47 VBG pH 7.51 H VBG pCO2 44.0 VBG HCO3 35.1 H VBG Total CO2 36.5 H VBG O2 Sat (Calc) 89.3 H VBG Base Excess 10.8 H VBG Potassium 3.7 Sodium 133.0 Chloride 95.0 L Glucose 182 H Lactate 2.1 FiO2 21.0 POC Glucose (mg/dL) Lactate Dehydrogenase Total Creatine Kinase Troponin I Venous Blood Potassium 3.7 Urine Color Yellow Urine Appearance Clear Urine pH 6.5 Ur Specific [place] 1.010 Urine Protein Negative Urine Glucose (UA) Negative Urine Ketones Negative Urine Blood Negative Urine Nitrate Negative Urine Bilirubin Negative Urine Urobilinogen 0.2 Ur Leukocyte Esterase Negative Emesis for Blood 07/08/18 07/08/18 07/08/18 06:00 06:00 11:00 WBC 15.4 H RBC 2.70 L Hgb 8.8 L Hct 27.6 L MCV 102.2 MCH 32.6 MCHC 31.9 RDW 16.0 H Plt Count 196 MPV 10.0 APTT 90.3 H pO2 VBG pH VBG pCO2 VBG HCO3 VBG Total CO2 VBG O2 Sat (Calc) VBG Base Excess VBG Potassium Sodium Chloride Glucose Lactate FiO2 POC Glucose (mg/dL) Lactate Dehydrogenase 641 Total Creatine Kinase < 20 L Troponin I 0.02 D Venous Blood Potassium Urine Color Urine Appearance Urine pH Ur Specific [place] Urine Protein Urine Glucose (UA) Urine Ketones Urine Blood Urine Nitrate Urine Bilirubin Urine Urobilinogen Ur Leukocyte Esterase Emesis for Blood 07/08/18 07/08/18 07/08/18 17:30 20:10 21:24 WBC RBC Hgb Hct MCV MCH MCHC RDW Plt Count MPV APTT 62.0 H pO2 VBG pH VBG pCO2 VBG HCO3 VBG Total CO2 VBG O2 Sat (Calc) VBG Base Excess VBG Potassium Sodium Chloride Glucose Lactate FiO2 POC Glucose (mg/dL) 184 H Lactate Dehydrogenase Total Creatine Kinase Troponin I Venous Blood Potassium Urine Color Urine Appearance Urine pH Ur Specific [place] Urine Protein Urine Glucose (UA) Urine Ketones Urine Blood Urine Nitrate Urine Bilirubin Urine Urobilinogen Ur Leukocyte Esterase Emesis for Blood Pos Assessment & Plan - Assessment and Plan (Free Text) Assessment: 78 year old female with past medical history of small cell lung carcinoma s/p carboplatinum and etoposide, stage IV metastatic ovarian carcinoma, mullerian origin, mets to lung, 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 Patient was placed on BiPAP, IV pressors and hemodynamically monitored in ICU. Plan: Respiratory Distress Hypoxic Respiratory Failure Hypotension Atrial fibrillation Sepsis CHF COPD Hx of Renal cell carcinoma s/p nephrectomy s/p interforn therapy Stage IV small cell Lung Carcinoma Stage IV ovarian cancer, quesada origin -Supplemental O2 with BiPAP , maintain SaO2 >90% -Continue with xopenex, pulmicort, acetylcysteine -f/u CBC, BMP, Procal, ABG, Troponin, urine culture, blood culture, portble CXR -Blood pressure support with IV dopamine switched to IV levophed with goal MAP >65mmHg -IV antibiotics with IV Merrem in conjunction with IV linezolid, ID consulted and following -Maintain euglycemia goal bg 120-180, Monitor and replete lytes as necessary, maintain euvolemia -Head of bed >30 degrees, Neuro checks Q2H, -Monitor I&O -ID, Cardiology, Pulmonology, IR, Heme/Onc consulted and following GI/DVT ppx: -Pepcid -Heparin Gtt DIET: NPO CODE Status: DNR/DNI Patient was transferred to ICU immediately following HAND NAILER on floor. Patient code status was made DNR/DNI as per living will and conversations with family. Patient's family and primary medical team with Dr. Lind/Dr. Spivey were notified of code status update and patient's clinical condition. Upon arrival to ICU patient's family was notified of clinical condition. As per Dr. Zafar, pulmonology with Dr. Love was contacted. Dr. Love requested the dopamine be transitioned to Levophed, placed on BiPAP and that the patient have a repeat CXR and abg for further monitoring. Patient was noted to have increased respiratory effort on BiPAP, hypotension and bradycardia. Patient went into cardiac arrest. While in ICU patient received aggressive care within the confines of the Living Will. Patient subsequently passed at 11:46 PM, patient family and primary care physician notified.
[2018-07-08] MEDS ORDERED: DOPamine 400mg/250ml D5W 400 MG/250 ML BAG IV PRN (21:39)
[2018-07-08] MEDS ORDERED: Sodium Chloride 0.9% 250 ML IV STA (21:55)
--- NOTE | 2018-07-08 22:11 | PCM.RRT ---
INSURANCE SALESPERSON Nurse Assessment - Situation Date: 07/08/18 Time INSURANCE SALESPERSON was called: 21:19 INSURANCE SALESPERSON Responder Arrival Time: 21:20 INSURANCE SALESPERSON Location:: [address] [place] [address] Room Number: 361-1 INSURANCE SALESPERSON Reason for Call: Respiratory Distress, O2 Saturation below 90% INSURANCE SALESPERSON Called By: RN - IV IV Inserted during INSURANCE SALESPERSON?: No IV Fluids Initiated During INSURANCE SALESPERSON?: 0.9%NS BOLUS - Respiratory Oxygen Delivery Method: Nasal Cannula @L/min, Non Rebreather @% Oxygen Flow Rate: 5 Received Nebulizer Treatments:: No Was the Patient Ventilated with Bag/Mask 100% O2?: No Secretions Suctioned?: No Was the Patient Intubated?: No Was the Patient Placed on a Ventilator?: Yes - Ventilator Settings Mode: BIPAP - Medication Medications Administered During INSURANCE SALESPERSON: DOPAMINE - Diagnostic Test Ordered EKG: No Chest X-Ray: Yes CT Scan: No - Stat Labs Ordered INSURANCE SALESPERSON Stat Labs Ordered: CBC, BMP, TROPONIN, BLOOD C&S X2, ABG INSURANCE SALESPERSON Other Labs Ordered: BLOOD CULTURE, URINE CULTURE CPR started during INSURANCE SALESPERSON?: No - Vital Signs Vital Sign: Rapid Response Vital Sign Blood Pressure 66/44 Pulse Rate 46 Respiratory Rate 26 Oxygen Saturation 50 - Finger Stick Blood Glucose Finger Stick Blood Glucose: 184 - Sepsis Screen Part 1 Sepsis Screen Part 1: Hypotensive - Time INSURANCE SALESPERSON Ended Time INSURANCE SALESPERSON Ended: 22:01 - Vital Signs at end of INSURANCE SALESPERSON Vital Signs at end of INSURANCE SALESPERSON: Rapid Response End Vital Sign Blood Pressure 74/49 Pulse Rate 102 Respiratory Rate 24 O2 Sat by Pulse Oximetry 90 - Respiratory Oxygen Delivery Method: Nasal Cannula @L/min, Non Rebreather @% Oxygen Flow Rate: 5 - Constitutional Appears: Chronically Ill - Head Head Exam: ATRAUMATIC, NORMAL INSPECTION - Eyes Eye Exam: EOMI, Normal appearance, PERRL - Respiratory Exam Respiratory Exam: Rhonchi, Respiratory Distress. absent: Rales, Wheezes, Stridor Additional comments: Some crackles heard bilaterally, more on the right lung. Bipap in place - Cardiovascular Exam Cardiovascular Exam: REGULAR RHYTHM, +S1, +S2. absent: Gallop, Rubs, Murmur - GI/Abdominal Exam GI & Abdominal Exam: Soft, Normal Bowel Sounds. absent: Tenderness - Neurological Exam Neurological Exam: Awake, CN II-XII Intact - Extremities Exam Extremities Exam: Normal Inspection. absent: Pedal Edema Plan - Assessment of Findings&Treatment Plan Time INSURANCE SALESPERSON was called: 21:19 Initial Vitals: Blood Pressure 66/44 Pulse Rate 50 Respiratory Rate 26 Oxygen Saturation 84% On arrival, patient was responsive but seems lethargic. As per nursing staff, patient had complained of nausea earlier and IV Zofran was given. Patient did not vomit. Patient later lost consciousness and became unresponsive while dry heaving into her bucket. It was difficult to obtain her O2 saturation as her limbs were cold. Her O2 saturation ranges from 60-80%. Respiratory therapist was at bedside, using his pulse ox machine showed 90% O2 saturation. Patient was put on Bipap. Fingerstick glucose showed a glucose level of 184. Patient's blood pressure was 66/44, NS bolus and Dopamine were started. Patient's pressure went up to 90/50 and was transferred to the ICU. Patient's family contacted at time of INSURANCE SALESPERSON regarding code status as it was undocumented in chart. Family of patient instructed primary team that patient wanted to be DNI/DNR. Chantal Hartman, patient's sister, requested patient to be DNI/DNR, 2 nurses witnessed. POLST completed in chart. PMD notified regarding patient's code status and condition. Vitals after INSURANCE SALESPERSON: Blood Pressure 74/49 Pulse Rate 102 Respiratory Rate 24 O2 Saturation 90% Plan: - 0.9% NS bolus - Dopamine IV - BIPAP - CXR - CBC, BMP, Troponin, Blood cultures, ABG, and Urine culture ordered - Transfer patient to ICU - Family and PMD were notified and updated on patient's status
[2018-07-08] MEDS ORDERED: NOREPINEPHRINE BIT/0.9 % NACL 4 MG/250 ML BAG IV PRN (22:46)
--- NOTE | 2018-07-08 22:59 | CON ---
DATE OF CONSULTATION: 07/08/2018 REQUESTING PHYSICIAN: Dr. Lind. REASON FOR CONSULTATION: Atrial fibrillation. HISTORY: This is a 78-year-old woman well known to us from prior admissions, who presented to the emergency room with worsening bilateral leg pain as well as skin ulcerations. She had been treated with Eliquis for a DVT and also has a history of atrial fibrillation, for which she takes diltiazem. Earlier today, she was in atrial fibrillation with rapid ventricular response up to 140 beats per minute. She was seen on remote telemetry in the presence of Dr. Lind and Dr. Mario Yee. She denies any chest discomfort or excessive dyspnea at the present time. She does have a stage IV metastatic ovarian cancer, for which she has received chemotherapy. She also has a history of small cell lung cancer. PAST HISTORY: Also notable for a thoracic aortic aneurysm. She has undergone a prior right nephrectomy as well. She has a history of hemochromatosis, prior cholecystectomy, severe peripheral vascular disease, cerebrovascular disease, and arthritis. FAMILY HISTORY: Uncertain. SOCIAL HISTORY: She no longer smokes. Denies alcohol use. CURRENT MEDICATIONS: Mucomyst, diltiazem 30 mg 4 times a day, intravenous heparin, Lasix 20 mg every 12 hours, Pepcid, prednisone, Pulmicort, Singulair, Xopenex, and Zyvox. ALLERGIES: NONE. REVIEW OF SYSTEMS: Ten-point review of systems is notable mainly for the problems mentioned above. PHYSICAL EXAMINATION: GENERAL: She is a chronically ill-appearing elderly woman. VITAL SIGNS: Her blood pressure is 100/60 with a pulse of 120, in atrial fibrillation. Respirations are 16. She is afebrile. HEENT: Temporal wasting noted. NECK: No JVD. CHEST: Bilateral scattered rhonchi. HEART: PMI displaced laterally with a systolic murmur at the lower left sternal border. The rhythm is irregularly irregular. ABDOMEN: Soft and nontender with normoactive bowel sounds. EXTREMITIES: 1+ bilateral lower extremity edema. SKIN: Extensive skin lesions noted involving both lower extremities and several of these have dressings applied. There are marked areas of ecchymosis across both lower extremities. No petechial lesions are seen. PSYCHIATRIC: Awake and alert. NEUROLOGIC: Generalized weakness, but no gross deficits noted. DIAGNOSTIC DATA: White count 15.4, hemoglobin and hematocrit 8.8 and 27.6 with platelet count 196,000. PT/PTT 18.8 and 30.8. Potassium 3.4, BUN and creatinine 59 and 1. Two troponins are negative. Recent echocardiogram had revealed normal LV size with mildly reduced LV systolic function with global hypokinesis, mild aortic stenosis versus aortic sclerosis as well as moderate mitral regurgitation and mild tricuspid regurgitation. Chest x-ray will be reviewed. IMPRESSION: 1. Atrial fibrillation with rapid ventricular response, likely secondary to stress of illness and suboptimal resumption of oral rate control therapy. 2. Extensive skin lesions, possible skin necrosis secondary to anticoagulant therapy. The concomitant use of Eliquis and diltiazem can potentiate bleeding risk. 3. Coronary artery disease, status post remote PCI. 4. Mild left ventricular dysfunction. 5. Mitral and tricuspid regurgitation. 6. Metastatic ovarian cancer with a history of lung cancer as well. 7. Status post nephrectomy. 8. Rest of problems as noted. RECOMMENDATIONS: I agree with IV heparin at the present time. Oral metoprolol will be resumed for rate control in addition to her diltiazem. Eliquis will be withheld as well as Xarelto. Should an oral agent be needed, Pradaxa can be considered as it does not cause the same potentiation of bleeding risk as is seen with concomitant use of diltiazem. Her overall prognosis appears extremely poor. Thank you for this consultation. We will be happy to follow along through her hospital course. Jonel Calles MD
[2018-07-08] MEDS ORDERED: MEROPENEM 500 MG in NS 500 MG/50 ML BAG IVPB SCH (23:00)
[2018-07-08 23:19] LABS: HEMOGLOBIN 7.4 g/dL (12.0-16.0); MEAN CORPUSCULAR HEMOGLOBIN 33.2 pg (25.0-35.0); MEAN CORPUSCULAR HGB CONC 31.1 g/dl (31.0-37.0); MEAN PLATELET VOLUME 10.5 fl (7.0-11.0); RBC 2.23 10^6/uL (3.5-6.1); RED CELL DISTRIBUTION WIDTH 16.2 % (11.5-14.5); WHITE BLOOD COUNT 20.5 10^3/uL (4.5-11.0)
[2018-07-08 23:27] LABS: MEAN CELL VOLUME 106.7 fl (80.0-105.0)
[2018-07-08 23:32] LABS: TROPONIN I 0.03 ng/mL
--- NOTE | 2018-07-08 23:58 | CP.PCM.PRO ---
Pronouncement of Note - Clinical Findings Physical Exam: No Response Verbal/Painful Stimuli, Absent Peripheral Puls es{Carotid & Femoral}, Absent Heart & Breath Sounds, No Pupillary Light Reflex, No Corneal Reflex, Pupils Fixed & Dilated, Absence of Vital Signs - Pronouncement Time Time of Pronouncement of : 23:46 - Notifications Pronouncement Notifications: Family Notified, [place] Notified - [place] [id number]
[2018-07-09 00:30] VITALS: PULSE 109
[2018-07-09 00:43] VITALS: BP 98/41; RESP 40
--- NOTE | 2018-07-09 09:41 | RAD ---
Date of service: 07/08/2018 HISTORY: DYSPNEA COMPARISON: 07/07/2018 FINDINGS: LUNGS: Increasing right lower lobe consolidation. No change in right upper lobe infiltrate and pleural thickening. PLEURA: No significant pleural effusion identified, no pneumothorax apparent. CARDIOVASCULAR: Extensive aortic calcification and tortuosity Normal cardiac size. No pulmonary vascular congestion. OSSEOUS STRUCTURES: No significant abnormalities. VISUALIZED UPPER ABDOMEN: Normal. OTHER FINDINGS: None. IMPRESSION: Increasing right lower lobe consolidation. No change in right upper lobe infiltrate and pleural thickening.
--- NOTE | 2018-07-09 10:36 | CP.PCM.DIS ---
Provider - Provider Date of Admission: 07/07/18 15:39 Attending physician: Luis Zafar MD Primary care physician: Dr Tania Lind Consults: 07/07/18 13:57 Physician Consult Stat Comment: Consulting Provider: Mario Yee Consulting Physician: Mario Yee Reason for Consult: h/o PAD, pulseless right foot 07/07/18 15:36 Infectious Disease Consult Stat Comment: Consulting Provider: Reese Bradford Consulting Physician: Reese Bradford Reason for Consult: Left lower extremity cellulitis, Pulmonary Infiltrates 07/07/18 15:37 Pulmonology Consult Stat Comment: Consulting Provider: Concepcion Love Consulting Physician: Concepcion Love Reason for Consult: Respiratory Alkalosis, Pulmonary Infiltrates, H/o Lung Cancer 07/07/18 21:10 Wound Care [Nursing Referral for Wound Care] Routine Comment: Physician Instructions: Reason For Exam: pressure ulcer to BL buttock and left ischiumBLleg 07/08/18 01:11 Nursing Referral for Wound Care Routine Comment: Physician Instructions: Reason For Exam: skin tear R antecubital 07/08/18 10:54 Physician Consult Routine Comment: Consulting Provider: Jonel Calles Consulting Physician: Jonel Calles Reason for Consult: Rapid A-FIB Time Spent in preparation of Discharge (in minutes): 55 Diagnosis - Discharge Diagnosis (1) Hypoxia Status: Acute Priority: High (2) Metastatic cancer Status: Chronic Priority: High (3) PAD (peripheral artery disease) Status: Chronic Priority: High (4) Pneumonia Status: Resolved Priority: High Hospital Course - Lab Results Lab Results: Micro Results 07/07/18 13:30 Blood Blood Culture - Preliminary NO GROWTH AFTER 24 HOURS 07/07/18 12:50 Blood Blood Culture - Preliminary NO GROWTH AFTER 24 HOURS Most Recent Lab Values WBC 20.5 10^3/uL (4.5-11.0) H D 07/08/18 23:07 RBC 2.23 10^6/uL (3.5-6.1) L 07/08/18 23:07 Hgb 7.4 g/dL (12.0-16.0) L 07/08/18 23:07 Hct 23.8 % (36.0-48.0) L 07/08/18 23:07 MCV 106.7 fl (80.0-105.0) H D 07/08/18 23:07 MCH 33.2 pg (25.0-35.0) 07/08/18 23:07 MCHC 31.1 g/dl (31.0-37.0) 07/08/18 23:07 RDW 16.2 % (11.5-14.5) H 07/08/18 23:07 Plt Count 194 10^3/uL (120.0-450.0) 07/08/18 23:07 MPV 10.5 fl (7.0-11.0) 07/08/18 23:07 Gran % 95.1 % (50.0-68.0) H 07/07/18 12:50 Lymph % (Auto) 3.1 % (22.0-35.0) L 07/07/18 12:50 Heard % (Auto) 1.6 % (1.0-6.0) 07/07/18 12:50 Eos % (Auto) 0.1 % (1.5-5.0) L 07/07/18 12:50 Baso % (Auto) 0.1 % (0.0-3.0) 07/07/18 12:50 Gran # 15.59 (1.4-6.5) H 07/07/18 12:50 Lymph # (Auto) 0.5 (1.2-3.4) L 07/07/18 12:50 Heard # (Auto) 0.3 (0.1-0.6) 07/07/18 12:50 Eos # (Auto) 0.0 (0.0-0.7) 07/07/18 12:50 Baso # (Auto) 0.01 K/mm3 (0.0-2.0) 07/07/18 12:50 Neutrophils % (Manual) 93 % (50.0-70.0) H 07/07/18 12:50 Lymphocytes % (Manual) 3 % (22.0-35.0) L 07/07/18 12:50 Monocytes % (Manual) 4 % (1.0-6.0) 07/07/18 12:50 PT 18.8 SECONDS (9.4-12.5) H 07/07/18 12:50 INR 1.66 07/07/18 12:50 APTT 108.2 Seconds (26.9-38.3) H* 07/08/18 23:07 pCO2 42 mm/Hg (35-45) 07/07/18 15:00 pO2 47 mm/Hg (30-55) 07/07/18 23:50 HCO3 35.1 mmol/L (21-28) H 07/07/18 15:00 ABG pH 7.53 (7.35-7.45) H 07/07/18 15:00 ABG Total CO2 36.4 mmol.L (22-28) H 07/07/18 15:00 ABG O2 Saturation 99.4 % (95-98) H 07/07/18 15:00 ABG Base Excess 11.2 mmol/L (-2.0-3.0) H 07/07/18 15:00 ABG Potassium 3.0 mmol/L (3.6-5.2) L 07/07/18 15:00 VBG pH 7.51 (7.32-7.43) H 07/07/18 23:50 VBG pCO2 44.0 (40-60) 07/07/18 23:50 VBG HCO3 35.1 mmol/l (21-28) H 07/07/18 23:50 VBG Total CO2 36.5 mmol.L (22-28) H 07/07/18 23:50 VBG O2 Sat (Calc) 89.3 % (40-65) H 07/07/18 23:50 VBG Base Excess 10.8 mmol/L (0.0-2.0) H 07/07/18 23:50 VBG Potassium 3.7 mmol/L (3.6-5.2) 07/07/18 23:50 Sodium 133.0 mmol/L (132-148) 07/07/18 23:50 Chloride 95.0 mmol/L (98-107) L 07/07/18 23:50 Glucose 182 mg/dl (65-105) H 07/07/18 23:50 Lactate 2.1 mmol/L (0.7-2.1) 07/07/18 23:50 FiO2 21.0 % 07/07/18 23:50 Crit Value Called To Anusha thapa 07/07/18 20:36 Crit Value Called By Atc 07/07/18 20:36 Blood Gas Notified Time 204107/07/18 20:36 Sodium 133 mmol/L (132-148) 07/08/18 23:07 Potassium 6.5 mmol/L (3.6-5.0) H* D 07/08/18 23:07 Chloride 94 mmol/L (98-107) L 07/08/18 23:07 Carbon Dioxide 17 mmol/L (21-33) L 07/08/18 23:07 Anion Gap 29 (10-20) H 07/08/18 23:07 BUN 64 mg/dL (7-21) H 07/08/18 23:07 Creatinine 1.5 mg/dl (0.7-1.2) H 07/08/18 23:07 Est GFR ( Amer) 41 07/08/18 23:07 Est GFR (Non-Af Amer) 33 07/08/18 23:07 POC Glucose (mg/dL) 184 mg/dL (65-110) H 07/08/18 21:24 Random Glucose 105 mg/dL (70-110) 07/08/18 23:07 Calcium 8.0 mg/dL (8.4-10.5) L 07/08/18 23:07 Phosphorus 7.6 mg/dL (2.5-4.5) H 07/08/18 23:07 Magnesium 1.8 mg/dL (1.7-2.2) 07/08/18 23:07 Total Bilirubin 0.7 mg/dL (0.2-1.3) 07/07/18 12:50 AST 37 U/L (14-36) H 07/07/18 12:50 ALT 41 U/L (7-56) 07/07/18 12:50 Alkaline Phosphatase 99 U/L (38-126) 07/07/18 12:50 Lactate Dehydrogenase 641 U/L (333-699) 07/08/18 06:00 Total Creatine Kinase < 20 U/L (35-230) L 07/08/18 06:00 Troponin I 0.03 ng/mL D 07/08/18 23:07 Total Protein 5.8 g/dL (5.8-8.3) 07/07/18 12:50 Albumin 3.2 g/dL (3.0-4.8) 07/07/18 12:50 Globulin 2.7 gm/dL 07/07/18 12:50 Albumin/Globulin Ratio 1.2 (1.1-1.8) 07/07/18 12:50 Procalcitonin 0.64 NG/ML (0.19-0.49) H 07/07/18 13:00 Arterial Blood Potassium 3.0 mmol/L (3.6-5.2) L 07/07/18 15:00 Venous Blood Potassium 3.7 mmol/L (3.6-5.2) 07/07/18 23:50 Urine Color Yellow (YELLOW) 07/08/18 05:37 Urine Appearance Clear (CLEAR) 07/08/18 05:37 Urine pH 6.5 (4.7-8.0) 07/08/18 05:37 Ur Specific Toney 1.010 (1.005-1.035) 07/08/18 05:37 Urine Protein Negative mg/dL (<30 mg/dL) 07/08/18 05:37 Urine Glucose (UA) Negative mg/dL (NEGATIVE) 07/08/18 05:37 Urine Ketones Negative mg/dL (NEGATIVE) 07/08/18 05:37 Urine Blood Negative (NEGATIVE) 07/08/18 05:37 Urine Nitrate Negative (NEGATIVE) 07/08/18 05:37 Urine Bilirubin Negative (NEGATIVE) 07/08/18 05:37 Urine Urobilinogen 0.2 E.U./dL (<1 E.U./dL) 07/08/18 05:37 Ur Leukocyte Esterase Negative Bruno/uL (NEGATIVE) 07/08/18 05:37 Emesis for Blood Pos (NEGATIVE) 07/08/18 20:10 - Hospital Course Hospital Course: HOSPITAL COURSE: Patient was admitted to the ER with worsening LE pain and worsening swelling and redness of both lower extremities. She also had ulcerations. On exam right foot was cold and cyanotic compared to left. An FREDY was done which showed severe right-sided disease worse than left in lower extremities. She was started on a heparin drip with improvement in color, pain and temperature of LE. IR and Surgery were also consulted and further testing was to be done with an MRA to evaluate the vessels of the LE. However on the night of 07/08/18 Mrs Jason became nauseous and a short time later went into respiratory distress - a rapid response was called at approx 9:30pm. Blood tests were done, ekg and cxr were also done. Night time resident confirmed with family members that patient's wishes were to be DNR/DNI. At approx 11:40pm Mrs Jason was pronounced . Possibly etiologies of this acute event include sudden myocardial infarction vs pulmonary embolism. Discharge Exam - Head Exam Head Exam: ATRAUMATIC, NORMAL INSPECTION Discharge Plan - Follow Up Plan Condition: Disposition: WITH WITHOUT AUTOPSY Instructions: Peripheral Artery Disease (DC), Peripheral Artery Disease (GEN)
--- NOTE | 2018-07-09 18:55 | DS ---
The patient is a 78-year-old female, who last night after rapid response. Her time of pronounced was 2345 with the [place] Electronic Record Certificate number of [id number] with the patient known to have suffered from a probable acute myocardial infarction due to atherosclerotic coronary vascular disease. She is also known to had atrial fibrillation and stage-IV metastatic ovarian cancer with pulmonary metastasis, severe peripheral vascular disease, and non-small cell carcinoma of lung, along with history of renal cell carcinoma with nephrectomy. This addendum is to agree with Araceli Grace discharge note of the patient's certificate also has been completed with the above findings noted. Luis Zafar MD
== END 2018-07-08 23:46 | DRG 602 ==
LOC: ED 11:52 → ERH 15:39 → 3RNO 16:47 → CCU 07-08 23:08
PROVIDERS: ADMIT Family Medicine; ATTEND Family Medicine
PROC: 5A09357 Assistance with Respiratory Ventilation, Less than 24 Consecutive Hours, Continuous Positive Airway Pressure (ICD-10-PCS; principal; 2018-07-08)
PROC: 3E0F7GC Introduction of Other Therapeutic Substance into Respiratory Tract, Via Natural or Artificial Opening (ICD-10-PCS; 2018-07-08)
DX: L03.116 Cellulitis of left lower limb (principal); J96.91 Respiratory failure, unspecified with hypoxia; C56.9 Malignant neoplasm of unspecified ovary; I50.32 Chronic diastolic (congestive) heart failure; L97.829 Non-pressure chronic ulcer of other part of left lower leg with unspecified severity; L97.819 Non-pressure chronic ulcer of other part of right lower leg with unspecified severity; E87.3 Alkalosis; L03.115 Cellulitis of right lower limb; I73.9 Peripheral vascular disease, unspecified; Z66 Do not resuscitate; I25.10 Atherosclerotic heart disease of native coronary artery without angina pectoris; I11.0 Hypertensive heart disease with heart failure; I48.91 Unspecified atrial fibrillation; I08.1 Rheumatic disorders of both mitral and tricuspid valves; L89.159 Pressure ulcer of sacral region, unspecified stage; E87.6 Hypokalemia; I71.2 Thoracic aortic aneurysm, without rupture; J44.9 Chronic obstructive pulmonary disease, unspecified; Z85.118 Personal history of other malignant neoplasm of bronchus and lung; Z85.528 Personal history of other malignant neoplasm of kidney; Z99.81 Dependence on supplemental oxygen; I25.2 Old myocardial infarction; Z90.5 Acquired absence of kidney; Z92.3 Personal history of irradiation; Z95.5 Presence of coronary angioplasty implant and graft; Z87.891 Personal history of nicotine dependence; W19.XXXA Unspecified fall, initial encounter